=== PATIENT | female | born 1950 | race Caucasian/White ===

== ENCOUNTER → 2017-06-13 15:17 | Outpatient (CLI) | payer OTHER, SELFPAY ==
--- NOTE | 2017-06-13 15:19 | RAD_ITS ---
STUDY: X-RAY - LUMBAR SPINE REASON FOR EXAM: Female, 66 years old. Trauma, back pain TECHNIQUE: 3 view(s) of the lumbar spine were obtained. COMPARISON: 03/02/2016 FINDINGS: Normal lumbar lordosis. There is no substantial scoliosis. There is a normal alignment of the vertebrae. Normal vertebral bodies and endplates. There is multi-level degenerative disc disease with multi-level disc space narrowing. No fracture is seen. There is atherosclerotic calcification of the abdominal aorta without a demonstrated aneurysm. Cholecystectomy clips are seen in the right upper quadrant of the abdomen. RAD/Lumbar Spine 2 or 3 Views IMPRESSION: Mild degenerative changes. No acute bony abnormality. Electronically Signed: Robert Saba DO at 15:05 EST Tel , Service support ,
== END ==
PROVIDERS: Family Provider Nurse Practitioner; PCP Nurse Practitioner; Visit Provider Anesthesiology Pain Medicine
DX: M54.9 Dorsalgia, unspecified (principal); W19.XXXA Unspecified fall, initial encounter
CPT/HCPCS: 72100

== ENCOUNTER → 2017-06-15 06:35 | Outpatient (CLI) | payer OTHER, SELFPAY ==
[2017-05-31 14:20] VITALS: BP 124/72; BMI 32.2
--- NOTE | 2017-06-15 06:37 | ECHOD_ITS ---
Reason For Study: CHEST PAIN Procedure This was a 2D Doppler, Color Flow transthoracic echocardiogram. The exam was of fair technical quality due to diminished acoustic windows. The study was technically difficult. Exam performed in department. Left Ventricle Normal LV size. Left ventricular systolic function is normal. The estimated ejection fraction is 60 %. Transmitral doppler flow suggestive of impaired relaxation of left ventricle. No regional wall motion abnormalities noted. Right Ventricle Normal RV size. Normal systolic function. Atria Normal left atrium. Normal right atrium. No doppler evidence for ASD. Bubble contrast study negative for right to left interatrial shunt. Mitral Valve There is no mitral annular calcification. Normal mitral valve. Mild (1+) mitral valve insufficiency. Tricuspid Valve Normal tricuspid valve. Trivial tricuspid valve insufficiency. Unable to estimate RV systolic pressure/pulmonary artery pressure due to technically difficult study. Aortic Valve Trisinus/trileaflet aortic valve. Normal aortic valve. Pulmonic Valve The pulmonic valve is not well visualized. Great Vessels Normal sized aortic root. Pericardium/Pleural No pericardial effusion. MMode/2D Measurements & Calculations LVIDd: 3.9 cm IVSd: 0.96 cm Ao root diam: 2.9 cm LVIDs: 2.3 cm LVPWd: 1.1 cm RVDd: 2.6 cm FS: 40.1 % LAV(MOD-bp): 31.3 ml EDV(MOD-sp4): 41.5 ml EDV(MOD-sp2): 42.8 ml LAV(MOD-bp) Indexed: 17.3 ml/m2 ESV(MOD-sp4): 16.2 ml EF(MOD-sp2): 62.1 % LAV(MOD-sp2): 37.6 ml EF(MOD-sp4): 60.9 % LAV(MOD-sp4): 25.1 ml SV(MOD-sp4): 25.3 ml SV(MOD-sp2): 26.6 ml LA A4 area: 11.9 cm2 RA A4 area: 11.2 cm2 Doppler Measurements & Calculations MV E max diana: 60.2 cm/sec Ao V2 max: 97.0 cm/sec LV V1 max: 95.7 cm/sec MV A max diana: 67.7 cm/sec Ao max P.8 mmHg LV V1 max P.7 mmHg MV E/A: 0.89 PA V2 max: 112.5 cm/sec Interpretation Summary The study was technically difficult. Left ventricular systolic function is normal. The estimated ejection fraction is 60 %. Mild (1+) mitral valve insufficiency. Trivial tricuspid valve insufficiency. Unable to estimate RV systolic pressure/pulmonary artery pressure due to technically difficult study. Transmitral doppler flow suggestive of impaired relaxation of left ventricle Bubble contrast study negative for right to left interatrial shunt. Ordering Physician: Yaniv Liang Referring Physician: GUSTAVO SALGUERO Performed By: Bryn Sky
--- NOTE | 2017-06-15 10:14 | STRESSREP ---
Stress Test Report Date: 06/15/2017 Procedure: Pharmacologic stress nuclear imaging study Indications: Chest pain Consent: Per the patient Procedure: The patient underwent pharmacologic (Regadenoson) evaluation with a peak heart rate of 93 beats per minute (59% predicted maximal heart rate) and a peak blood pressure of 128/78 mmHg. The baseline ECG demonstrated normal sinus rhythm with nonspecific ST/T-wave abnormality. The peak pharmacologic ECG demonstrated with no obvious ECG changes. [There were no cardiac dysrhythmias pretest, during pharmacologic infusion, or recovery]. [There was no complaint of chest discomfort during pharmacologic infusion or recovery]. The examination was discontinued secondary to completion of protocol. Impression: 1. Pharmacologic (Regadenoson) evaluation 2. Peak pharmacologic ECG with continued nonspecific ST/T-wave abnormality with no obvious ECG changes. 3. Cardiac dysrhythmias pretest, during pharmacologic infusion, or recovery 4. Nuclear images pending Myocardial perfusion imaging study: Technique: The patient was injected with 1.4 millicuries of technetium 99m Cardiolite and subsequently rest SPECT Cardiolite nuclear imaging was obtained in the horizontal long, vertical long, and short axis views. The patient underwent pharmacologic (Regadenoson) evaluation with a peak heart rate of 93 beats per minute (59% predicted maximal heart rate) and a peak blood pressure of 128/78 mmHg. the patient was injected with 36 millicuries of technetium 99m Cardiolite and subsequently stress SPECT Cardiolite nuclear imaging was obtained in the horizontal long, vertical long, and short axis views. A gated Cardiolite study at peak stress was obtained. Interpretation: Rest and stress SPECT Cardiolite nuclear imaging status post realignment, normalization, and attenuation correction demonstrate relative uniform tracer uptake and myocardial perfusion appearing within normal limits. [There is end systolic thickening and brightening]. [The gated Cardiolite study demonstrates myocardial thickening and inward wall motion]. The reported LVEF is 92%. Impression: 1. Rest and stress SPECT currently nuclear imaging demonstrating relative uniform tracer uptake and myocardial perfusion appearing within normal limits. 2. The gated Cardiolite study demonstrates an LVEF of 92%. This note was generated with [employer] software. It may contain incorrect words, spelling, and punctuation that were not noted in checking the note before signing.
== END ==
PROVIDERS: Family Provider Nurse Practitioner; PCP Nurse Practitioner; Visit Provider Internal Medicine Cardiovascular Disease
DX: R07.9 Chest pain, unspecified (principal)
CPT/HCPCS: 78452; 93017; 93306; A9500; A4216; J2785

== ENCOUNTER → 2017-08-22 15:37 | Outpatient (CLI) | payer OTHER, SELFPAY ==
--- NOTE | 2017-08-22 15:40 | BI_ITS ---
MAMMOGRAPHY - BILATERAL SCREENING REASON FOR EXAM: Female, 66 years old. Routine annual screening examination. PERTINENT HISTORY: Aunt with breast cancer. History of prior bilateral breast implants with removal. TECHNIQUE: Digital bilateral breast shukri (3D mammographic acquisition) in the CC and MLO projections. 2-D mediolateral oblique (MLO) and craniocaudad (CC) views of both breasts were obtained. CAD: Full Field Digital Mammography with Computer Added Detection was performed. COMPARISON: Comparison is made with prior study dated July 23, 2015. FINDINGS: Breast Composition: There are scattered areas of fibroglandular density. There are no dominant masses or suspicious calcifications. Stable small benign appearing bilateral axillary lymph nodes. No other significant abnormalities are identified. There has been no significant change since the prior study. BI/SCREENING MAMM (CAD), BILAT IMPRESSION: Stable bilateral screening mammogram. Yearly follow-up mammogram recommended. (A) ASSESSMENT CATEGORY: BIRADS Category 2: Benign. A letter regarding these results will be sent to the patient by the facility within 30 days. Approximately 10% of breast cancers are not detected by mammography. A normal mammogram should not delay biopsy of a clinically suspicious abnormality. [id number] Electronically Signed: Xu Davila MD at 9:48 EDT Tel [phone], Service support ,
== END ==
PROVIDERS: Family Provider Nurse Practitioner; PCP Nurse Practitioner; Visit Provider Nurse Practitioner
DX: Z12.31 Encounter for screening mammogram for malignant neoplasm of breast (principal)
CPT/HCPCS: 77063; 77067

== ENCOUNTER → 2017-09-03 17:05 | Outpatient (CLI) | payer OTHER, SELFPAY ==
[2017-09-03 17:43] LABS: Amphetamine Urine VISTA NEGATIVE (<1000 ng/mL); Barbiturate Urine VISTA NEGATIVE (< 200 ng/mL); Benzodiazepine Urine VISTA NEGATIVE (< 200 ng/mL); Cocaine Urine VISTA NEGATIVE (< 300 ng/mL); Ecstacy Urine VISTA POSITIVE (< 500 ng/mL); Methadone Urine VISTA NEGATIVE (< 300 ng/mL); PCP Urine VISTA NEGATIVE (< 25 ng/mL); THC Urine VISTA POSITIVE (< 50 ng/mL); Vista UDS pH Range 5
== END ==
PROVIDERS: Family Provider Nurse Practitioner; PCP Nurse Practitioner; Visit Provider Anesthesiology Pain Medicine
DX: F11.20 Opioid dependence, uncomplicated (principal)
CPT/HCPCS: 80307

== ENCOUNTER 2018-03-01 12:49 | Observation (INO) | payer OTHER, SELFPAY ==
[2018-03-01] VITALS (13 sets, daily range): BP systolic 95–150; BP diastolic 49–70; PULSE 61–84; RESP 11–18; TEMP 36.6–36.8; O2SAT 92–97; BMI 32.5; BMI 33.0
--- NOTE | 2018-03-01 13:18 | CT_ITS ---
STUDY: CT BRAIN WITHOUT CONTRAST REASON FOR EXAM: Female, 67 years old. Worsening left-sided numbness and tingling for 2 weeks. Slurred speech and facial droop. RADIATION DOSAGE (If Supplied By Facility): CTDIvol = ( 60.81 ) mGy, DLP = ( 998.67 ) mGycm TECHNIQUE: Transaxial CT imaging of the brain was performed without administration of intravenous contrast material. Individualized dose optimization techniques were used for this CT. COMPARISON: Comparison is made with prior study dated June 09, 2014. FINDINGS: Normal soft tissue structures. Normal calvarium. There is mild cerebral atrophy with widening of the extra-axial spaces and ventricular dilatation. Normal white matter tracts of the cerebral hemispheres. Normal basal ganglia and thalami. Normal brainstem. Normal cerebellum. There is no intracranial hemorrhage. There are no findings of an acute ischemic infarction. Normal visualized paranasal sinuses. CT/Brain/Head without Contrast IMPRESSION: Chronic involutional changes of the brain. Electronically Signed: Xu Davila MD at 14:04 EST Tel [phone], Service support ,
--- NOTE | 2018-03-01 13:18 | EKG12_ITS ---
Test Reason : NUMBNESS Blood Pressure : / mmHG Vent. Rate : 079 BPM Atrial Rate : 079 BPM P-R Int : 148 ms QRS Dur : 086 ms QT Int : 402 ms P-R-T Axes : 046 022 002 degrees QTc Int : 460 ms Normal sinus rhythm Normal ECG Confirmed by AME MCMANUS ([id number]), acquisition editor LAI MCKEON ([id number] on 03/04/2018 2:09:13 PM Referred By: BETTE
[2018-03-01 13:29] LABS: Prothrombin Time (Protime)PT. 12.8 SECONDS (11.7-14.9)
[2018-03-01 13:30] LABS: Partial Thromboplast Time 26.9 Seconds (24.1-36.2)
[2018-03-01 13:31] LABS: Absolute Neutrophil Count 5.4 X10^3/uL (2.0-7.7); Basophil# 0.04 X10^3/uL; Basophil% 0.4 % (0-1); Eosinophil# 0.18 X10^3/uL; Hematocrit 46.1 % (37-47); Hemoglobin 15.5 g/dl (12.0-15.0); Lymphocyte % 31.7 % (19-41); Mean Corp Hgb Conc 33.6 g/gl (32-36); Mean Corpuscular Hgb 31.9 pg (27.0-32.0); Mean Corpuscular Volume 94.9 fL (81-99); Mean Platelet Vol. 9.8 fl (6.2-12.0); Monocyte# 0.65 X10^3/uL; Monocyte% 7.1 % (0-10); Neutrophil # 5.35 X10^3/uL (2.7-7.7); Neutrophil % 58.6 % (47-70); POSITIVE COUNT NO; POSITIVE DIFFERENTIAL NO; POSITIVE MORPHOLOGY NO; Platelet Count 232 K/mm3 (150-450); RBC Distribution Width CV 12.7 % (11.6-14.6); Red Blood Count 4.86 M/mm3 (4.2-5.4); White Blood Count 9.1 K/mm3 (4.4-11.0)
[2018-03-01 13:38] LABS: Anion Gap 6 (5-15); BUN 14 mg/dL (7-18); BUN/Creat Ratio 18.5 RATIO (10-20); Calcium,Total 8.7 mg/dL (8.5-10.1); Chloride 105 mmol/L (98-107); Creatinine, Serum 0.76 mg/dL (0.55-1.02); EST Glomerular Filtration Rate 81 mL/min (>60); Est Glom Filt Rate - Afr Amer 98 mL/min (>60); Estimated Creatinine Clearance 58.37 ml/min; Glucose 84 mg/dL (74-106); Sodium Level 138 mmol/L (136-145)
[2018-03-01 14:24] LABS: Thyroid Stim Hormone (TSH) 0.02 uIU/mL (0.358-3.74)
--- NOTE | 2018-03-01 14:33 | ED.RN ---
PAGED HOSPITALIST. DR. SIMS WILL CALL BACK SHORTLY.
--- NOTE | 2018-03-01 14:35 | ED.DCSUM_ITS ---
- ER Visit Summary Date of Service: 03/01/18 Chief Complaint: Increased weakness and numbness left side History of Present Illness: The patient is a 67 F who has multiple medical problems which include GERD, type 2 diabetes, hypertension, fiber myalgia, hiatal hernia and hypothyroidism was sent from primary care provider's office for evaluation of numbness left side and weakness left side. Onset approximately 2 weeks ago. Worse apparently today. She has had problems with speech. She does report headache. She does admit to depression and is on antidepressants. She complains of binocular blurred vision. She denies fever, chills night sweats. She denies ear pain, ringing or ears decreased hearing. She denies rhinorrhea, congestion postnasal drainage or sore throat. She denies cardiac or respiratory symptoms. She denies abdominal pain, nausea, vomiting diarrhea. She denies urologic symptoms. She denies myalgias arthralgias or back pain. She denies polyuria, polydipsia or polyphagia. Physical Examination: Vital signs are noted and remarkable for an elevated blood pressure 150/70. Patient is not alert and has a depressed affect. Her speech is slightly slurred. Pupils equal round reactive. Extra muscles are intact. There is no nystagmus. TMs normal. Nares patent. Posterior pharynx without erythema or exudate and uvula is midline. There is no deviation tongue or protrusion. Trach is midline. There is no carotid bruit. Heart is regular without murmur, gallop or rub. S1 and S2 are normal. Lungs are clear to auscultation with good movement of air bilaterally. Abdomen is soft nontender. She has weakness on the left side and altered sensation left side with slurring of her words. She answered Brenda for the month. NIH is 10. Test Results: CT reveals chronic involutional changes. EKG sinus rhythm rate of 79 and completely normal. CBC normal. Basic metabolic panel normal. INR PTT normal. Troponin less than 0.015. TSH is low at 0.02.. Emergency Department Course and Treatment: Patient with neurologic symptoms over the past 2 weeks. This may represent MS, atypical stroke, conversion reaction, depression or spinal cord lesion. Stroke workup was undertaken. Since she has history of hypothyroidism will obtain TSH in the event this is hypothyroidism, atypical presentation. Treatment Plan: PCU observation status further testing and delineate the cause of her symptoms. Disposition: PCU Impression: 1. Paresthesia and weakness left side uncertain etiology 2. History of type 2 diabetes 3. History of hypertension 4. History of hypothyroidism with low TSH 5. History of GERD 6. History of fibromyalgia 7. History of depression This note was generated with [employer] software. It may contain incorrect words, spelling, and punctuation that were not noted in review of the chart prior to signing ED Disposition - Plan for ED Patient: Chief Complaint: Numb/Ting Referrals: Anjelica Moore NP-C [Primary Care Provider] -
--- NOTE | 2018-03-01 15:20 | PCM.HP.STD ---
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: without marine oil terminal superintendent use Diabetes mellitus complication status: with unspecified complications Qualified Code(s): E11.8 - Type 2 diabetes mellitus with unspecified complications (4) Psoriatic arthritis Status: Chronic (5) GERD (gastroesophageal reflux disease) Status: Chronic Qualifiers: Esophagitis presence: esophagitis presence not specified Qualified Code(s): K21.9 - Gastro-esophageal reflux disease without esophagitis (6) Fibromyalgia Status: Chronic (7) Mitral valve prolapse Status: Chronic (8) Hypertension Status: Chronic Qualifiers: Hypertension type: essential hypertension Qualified Code(s): I10 - Essential (primary) hypertension History of Present Illness Date of Admission: 03/01/18 Chief Complaint: Migraine, L sided paresthesias The patient is a 67 y/o F w/ PMHx: HTN, Obesity, Psoriatic Arthritis, Hypothyroidism w/ recent hyperthyroidism secondary to overtreatment w/ decreasing regimen ~ 3 weeks prior, Chronic Pain Syndrome following w/ Dr. Alvarez, Chronic Migraines w/ prior severe complex migraines w/ ongoing botox injections and aimovig monthly injections, Anxiety and Depression, GERD who presents to the [facility] ED on 03/01/18 with history of onset L sided paresthesias and weakness at the PCP office w/ referral to the ED for evaluation. In the ED she additionally notes onset L sided top of her head/parietal region throbbing headache w/ light sensitivity but no sound sensitivity. She has had a history of complex migraines. In the ED work-up included T 98.1, heart rate 84, BP 150/70, respiratory rate 16, 95% on room air, unremarkable CBC, unremarkable coags, BMP unremarkable, trop <0.015, TSH 0.02, CT head w/ chronic involutional changes of the brain. In the ED patient administered morphine and zofran. Past Medical History Past Medical History (Chronic Problems): Chronic Problems (Last Reviewed 05/31/17 @ 14:32 by Henrietta Corbett) Migraines (Chronic) Hypothyroidism (Chronic) Diabetes mellitus, type II (Chronic) Psoriatic arthritis (Chronic) GERD (gastroesophageal reflux disease) (Chronic) Fibromyalgia (Chronic) Mitral valve prolapse (Chronic) Hypertension (Chronic) Medical History: Medical History (Last Reviewed 05/31/17 @ 14:32 by Henrietta Corbett) Palpitations (Acute) R00.2 SOB (shortness of breath) (Acute) R06.02 Mitral valve prolapse (Chronic) I34.1 Hypertension (Chronic) I10 Fatigue (Acute) R53.83 Chest pain (Acute) R07.9 Chronic pain G89.29 Fibromyalgia M79.7 GERD (gastroesophageal reflux disease) K21.9 Hiatal hernia K44.9 Hypothyroidism E03.9 Osteopenia M85.80 Osteoporosis M81.0 Psoriatic arthritis L40.50 Type 2 diabetes mellitus E11.9 Chronic pain (Inactive) G89.29 Head ache (Inactive) R51 Hypothyroidism (Inactive) E03.9 Psoriatic arthritis (Inactive) L40.50 Allergies amoxicillin trihydrate [From Augmentin] Allergy (Verified 03/01/18 12:55) Shortness of breath ITCHING, SWELLING, HIVES aspirin Allergy (Verified 03/01/18 12:55) Anaphylaxis atropine sulfate [From Lomotil] Allergy (Verified 03/01/18 12:55) Itching SHORTNESS OF BREATH, HIVES cefixime [From Suprax] Allergy (Verified 03/01/18 12:55) Itching SHORTNESS OF BREATH, HIVES ceftriaxone sodium [From Rocephin] Allergy (Verified 03/01/18 12:55) Itching SHORTNESS OF BREATH, HIVES cephalexin monohydrate [From Keflex] Allergy (Verified 03/01/18 12:55) Itching SHORTNESS OF BREATH, HIVES ciprofloxacin [From Cipro] Allergy (Verified 03/01/18 12:55) Shortness of breath ciprofloxacin HCl [From Cipro] Allergy (Verified 03/01/18 12:55) Shortness of breath clindamycin Allergy (Verified 03/01/18 12:55) Itching HIVES, SHORTNESS OF BREATH diphenoxylate HCl [From Lomotil] Allergy (Verified 03/01/18 12:55) Itching SHORTNESS OF BREATH, HIVES gentamicin [Gentamicin] Allergy (Verified 03/01/18 12:55) Itching SHORTNESS OF BREATH, HIVES hydromorphone HCl [From Exalgo ER] Allergy (Verified 03/01/18 12:55) Itching SHORTNESS OF BREATH, HIVES metoclopramide HCl [From Reglan] Allergy (Verified 03/01/18 12:55) Anaphylaxis Penicillins [PCN] Allergy (Verified 03/01/18 12:55) Itching SHORTNESS OF BREATH, HIVES phenazopyridine HCl [From Pyridium] Allergy (Verified 03/01/18 12:55) Itching SHORTNESS OF BREATH, HIVES potassium clavulanate [From Augmentin] Allergy (Verified 03/01/18 12:55) Shortness of breath ITCHING, SWELLING, HIVES povidone-iodine [From Betadine] Allergy (Verified 03/01/18 12:55) Itching IF INJESTED propoxyphene HCl [From Darvon] Allergy (Verified 03/01/18 12:55) Itching SHORTNESS OF BREATH, HIVES red dye Allergy (Verified 03/01/18 12:55) Itching SHORTNESS OF BREATH, HIVES soap [From Betadine] Allergy (Verified 03/01/18 12:55) Itching IF INJESTED Sulfa (Sulfonamide Antibiotics) Allergy (Verified 03/01/18 12:55) Itching SHORTNESS OF BREATH, HIVES adhesive tape Adverse Reaction (Severe, Verified 03/01/18 12:55) skin peels clarithromycin [From Biaxin] Adverse Reaction (Severe, Verified 03/01/18 12:55) Vomiting ketorolac tromethamine [From Toradol] Adverse Reaction (Severe, Verified 03/01/18 12:55) Vomiting itching verapamil [Verapamil] Adverse Reaction (Severe, Verified 03/01/18 12:55) Other 3RD DEGREE HEART BLOCK azithromycin Adverse Reaction (Intermediate, Verified 03/01/18 12:55) vomiting iodine Adverse Reaction (Unknown, Verified 03/01/18 12:55) Unknown levofloxacin [From Levaquin] Adverse Reaction (Unknown, Verified 03/01/18 12:55) Unknown phenazopyridine [From Pyridium] Adverse Reaction (Unknown, Verified 03/01/18 12:55) Unknown carbamazepine [From Tegretol] Adverse Reaction (Verified 03/01/18 12:55) Unknown duloxetine HCl [From Cymbalta] Adverse Reaction (Verified 03/01/18 12:55) Unknown gabapentin [From Neurontin] Adverse Reaction (Verified 03/01/18 12:55) Other stomach pain, peripheral edema guaifenesin [From Entex T] Adverse Reaction (Verified 03/01/18 12:55) Vomiting TACHYCARDIA midazolam HCl [From Versed] Adverse Reaction (Verified 03/01/18 12:55) Other NO AFFECT-OKAY WITH DIPROVAN morphine Adverse Reaction (Verified 03/01/18 12:55) Other INSOMNIA, HALLUCINATIONS phenobarbital Adverse Reaction (Verified 03/01/18 12:55) Other PERODOXICAL REACTION pseudoephedrine HCl [From Entex T] Adverse Reaction (Verified 03/01/18 12:55) Vomiting TACHYCARDIA quetiapine fumarate [From Seroquel] Adverse Reaction (Verified 03/01/18 12:55) Other dystonia C-CLOR Allergy (Uncoded 10/30/13 23:22) Shortness of breath CAT SCAN DYE Allergy (Uncoded 10/30/13 23:22) Anaphylaxis CIPRO Allergy (Uncoded 10/30/13 23:22) Itching SHORTNESS OF BREATH, HIVES STERIODS Allergy (Uncoded 10/30/13 23:22) Other TRIGGERED ADDISONS DISEASE TAPE Adverse Reaction (Uncoded 10/30/13 23:22) Other SKIN PEELS XOPONEX Adverse Reaction (Uncoded 10/30/13 23:22) Other DISTONIA Home Medications: Ambulatory Orders Medication Instructions Recorded cholecalciferol (vitamin D3) 2,000 2,000 unit PO QDAY cap 05/30/17 unit capsule cyclobenzaprine 10 mg tablet 10 mg PO HS tab 05/30/17 trazodone 300 mg tablet 300 mg PO QHS tab 05/30/17 Clonazepam 2 mg PO QHS 03/01/18 Epinephrine [Epi Pen] 0.3 mg IM PRN PRN 03/01/18 Erenumab-Aooe [Aimovig 70 mg SQ QMONTH 03/01/18 Autoinjector (2 Pack)] Fluticasone 0.05% [Flonase Nasal 2 spray NASAL DAILY 03/01/18 [place]] Lactobacillus Rhamnosus GG 1 cap PO 03/01/18 [Culturelle] Metoprolol Succinate [Toprol Xl] 50 mg PO DAILY 03/01/18 Morphine Sulfate 15 mg PO DAILY 03/01/18 Tirosint 100 mcg PO CHARITY 03/01/18 Tirosint 200 mcg PO WE 03/01/18 Vitamin B Complex 1 tab PO DAILY 03/01/18 Surgical History: Surgical History (Last Reviewed 05/31/17 @ 14:32 by Henrietta Corbett) History of cholecystectomy Z98.890, Z90.49 History of total hysterectomy Z98.890, Z90.710 Hx of appendectomy Z98.890, Z90.49 Surgical History: appendectomy, cholecystectomy, hysterectomy Psychiatric History: Anxiety, Depression [employer]FT [employer] History: No pertinent [employer] history Lives: Spouse/ Significant Other Smoking Status: Never smoker Tobacco Use: Non-smoker Alcohol: None Drugs: None - *Family History Maternal Family History: Family History (Last Reviewed 05/31/17 @ 14:32 by Henrietta Corbett) Father CAD (coronary artery disease) Mother CVA (cerebral vascular accident) Grandfather Heart disease Grandmother Heart disease Uncle Sudden cardiac , Onset Age: 30 History Items: Stroke Paternal Family History: Family History (Last Reviewed 05/31/17 @ 14:32 by Henrietta Corbett) Father CAD (coronary artery disease) Mother CVA (cerebral vascular accident) Grandfather Heart disease Grandmother Heart disease Uncle Sudden cardiac , Onset Age: 30 History Items: High Cholesterol, Heart Disease, Hypertension Review of Systems Constitutional: Reports: Malaise, Weakness, Fatigue. Denies: Chills, Fever, Weight Change HEENT: Reports: Head Aches. Denies: Sinus Congestion, Sinus Drainage Cardiovascular: Denies: Chest Pain, Palpitations Respiratory: Denies: Cough, Shortness of breath at rest, Sputum production Gastrointestinal: Denies: Abdominal Pain, Nausea, Vomiting Genitourinary: Denies: Dysuria Musculoskeletal: Reports: Joint Pain. Denies: Joint Tenderness Skin: Denies: Rash, Wounds Neurological: Reports: Focal weakness, Numbness, Tingling Psychiatric: Reports: Anxiety, Depression. Denies: Homicidal Ideations, Suicidal Ideations Hematologic/ Lymphatic: Denies: Easy Bruising, Easy Bleeding VTE Information - Inpt Only VTE Present on Admission: No VTE Mechan Device Prophylaxis: SCD's VTE Pharm Prophylaxis ordered?: Yes Patient Problems: Active and Suspected Problems (Last Reviewed 05/31/17 @ 14:32 by Henrietta Corbett) Left-sided weakness (Acute) - Physical Exam Vital Signs Temp Pulse Resp BP Pulse Ox 98.1 F 80 16 132/60 H 95 03/01/18 12:50 03/01/18 15:15 03/01/18 15:15 03/01/18 15:15 03/01/18 15:15 Oxygen Flow Rate (L/min) 2 Oxygen Delivery Method Room Air Weight: 178 lb Body Mass Index (BMI) 32.5 Finger Stick Blood Glucose 95 Laboratory Tests Past 24 Hrs 03/01/18 03/01/18 03/01/18 12:58 12:58 12:58 WBC 9.1 RBC 4.86 Hgb 15.5 H Hct 46.1 MCV 94.9 MCH 31.9 MCHC 33.6 RDW 12.7 RDW Differential 43.0 Plt Count 232 MPV 9.8 Immature Gran % (Auto) 0.200 Neut % (Auto) 58.6 Lymph % (Auto) 31.7 [place] % (Auto) 7.1 Eos % (Auto) 2.0 Baso % (Auto) 0.4 Absolute Neuts (auto) 5.4 Absolute Lymphs (auto) 2.90 Total Counted Not Reportable PT 12.8 INR 1.0 APTT 26.9 Sodium 138 Potassium 4.0 Chloride 105 Carbon Dioxide 27.0 Anion Gap 6 BUN 14 Creatinine 0.76 Estim Creat Clear Calc 58.37 Est GFR (MDRD) Af Amer 98 Est GFR (MDRD) Non-Af 81 BUN/Creatinine Ratio 18.5 Glucose 84 Calcium 8.7 Troponin I < 0.015 TSH 03/01/18 12:58 WBC RBC Hgb Hct MCV MCH MCHC RDW RDW Differential Plt Count MPV Immature Gran % (Auto) Neut % (Auto) Lymph % (Auto) [place] % (Auto) Eos % (Auto) Baso % (Auto) Absolute Neuts (auto) Absolute Lymphs (auto) Total Counted PT INR APTT Sodium Potassium Chloride Carbon Dioxide Anion Gap BUN Creatinine Estim Creat Clear Calc Est GFR (MDRD) Af Amer Est GFR (MDRD) Non-Af BUN/Creatinine Ratio Glucose Calcium Troponin I TSH 0.02 L Assessment/Plan All Active Problems (Last Reviewed 05/31/17 @ 14:32 by Henrietta Corbett) Left-sided weakness (Acute) Palpitations (Acute) SOB (shortness of breath) (Acute) Fatigue (Acute) Chest pain (Acute) The patient is a 67 y/o F w/ PMHx: HTN, Obesity, Psoriatic Arthritis, Hypothyroidism w/ recent hyperthyroidism secondary to overtreatment w/ decreasing regimen ~ 3 weeks prior, Chronic Pain Syndrome following w/ Dr. Alvarez, Chronic Migraines w/ prior severe complex migraines w/ ongoing botox injections and aimovig monthly injections, Anxiety and Depression, GERD who presents to the [facility] ED on 03/01/18 with history of onset L sided paresthesias and weakness at the PCP office w/ referral to the ED for evaluation. (1) L sided Paresthesias concerning for Possibly Complex Migraine versus Conversion Disorder versus TIA/CVA: In the ED work-up included T 98.1, heart rate 84, BP 150/70, respiratory rate 16, 95% on room air, unremarkable CBC, unremarkable coags, BMP unremarkable, trop <0.015, TSH 0.02, CT head w/ chronic involutional changes of the brain. Will admit to PCU, will obtain MRI Brain, MRA Head and Neck, defer ECHO as recently performed, PT/OT/Speech/Nutrition evaluation per protocol. Neurology consulted, concern for conversion, recommend imaging. Will continue home HTN regimen, asa severe allergy, will defer plavix trial, defer statin until AM FLP, fall precautions. Mag, TSH as noted low with pending FT4 and planned decrease home synthroid regimen. Discussed with Neurology and will have PRN toradol only w/ PRN nausea regimen as patient notes intolerance with nausea, emesis. Defer any further increased narcotic regimen. UDS requested. (2) Chronic Migraines: Patient w/ prior severe complex migraines w/ ongoing botox injections and aimovig monthly injections. (3) Hypothyroidism with recent low TSH (Hyperthyroid, Iatrogenic): Patient states approximately 3 weeks prior she had undetectable TSH with recently decreased Synthroid regimen, TSH repeat low will obtain free T4 and likely continue decrease Synthroid regimen. (4) Chronic Pain Syndrome with psoriatic arthritis: Following w/ Dr. Alvarez, continue morphine sulfate, clonazepam and cyclobenzaprine home regimen regimen, urine drug screen requested, mildly lethargic in the ED, PT, OT, CM as noted for discharge planning. (5) Hypertension: Continue home regimen including metoprolol, PRN hydralazine. (6) Hyperlipidemia: FLP in a.m., no longer on statin therapy but was on prior and has no history of reaction per her report. (7) Allergic rhinitis: Continue home fluticasone regimen. (8) Obesity: Weight loss and lifestyle changes encouraged. (9) DVT Prophylaxis: SCDs, lovenox. Code Visit OBSV E&M: [id number] Initial observation care L3
[2018-03-01] MEDS: Ondansetron 4 MG/2 ML Vial IV ×2 (15:33→20:23)
[2018-03-01] MEDS: Morphine 4 MG/ML Syringe IV (15:36)
--- NOTE | 2018-03-01 15:56 | PCM.CONS.GEN ---
Problem List (1) Left-sided weakness Status: Acute (2) Migraines Status: Chronic Qualifiers: Migraine type: unspecified Status migrainosus presence: without status migrainosus Intractability: not intractable Qualified Code(s): G43.909 - Migraine, unspecified, not intractable, without status migrainosus Reason for Consult Date of Consultation: 03/01/18 Reason for Consultation: Left sided weakness History of Present Illness: The patient is a 67 year old CF with PMH HTN, HLD, DM, hypothroidism, depression, Migraine on Botox and Aimovig injections, H/O neck surgery, H/O seizure with last seizure many years ago admitted with left sided weakness. Per patient she has been having some left sided weakness for the past few days to weeks, along with left sided numbness, but has been worse since this morning and sent from her doctor's office for furhter evaluation. Per patient her HAs has been controlled with Aimovig and Botox injections. At present she denies any FARIAS, have had FARIAS about this morning which was on top of the left side of the head, but denies any photophobia, phonophobia. Denies any dizziness, complaints of neck pain, denies any radicular symptoms, denies any low back pain. [] Past Medical History Past Medical History (Chronic Problems): Chronic Problems (Last Reviewed 05/31/17 @ 14:32 by Henrietta Corbett) Migraines (Chronic) Hypothyroidism (Chronic) Diabetes mellitus, type II (Chronic) Psoriatic arthritis (Chronic) GERD (gastroesophageal reflux disease) (Chronic) Fibromyalgia (Chronic) Mitral valve prolapse (Chronic) Hypertension (Chronic) Medical History: Medical History (Last Reviewed 05/31/17 @ 14:32 by Henrietta Corbett) Palpitations (Acute) R00.2 SOB (shortness of breath) (Acute) R06.02 Mitral valve prolapse (Chronic) I34.1 Hypertension (Chronic) I10 Fatigue (Acute) R53.83 Chest pain (Acute) R07.9 Chronic pain G89.29 Fibromyalgia M79.7 GERD (gastroesophageal reflux disease) K21.9 Hiatal hernia K44.9 Hypothyroidism E03.9 Osteopenia M85.80 Osteoporosis M81.0 Psoriatic arthritis L40.50 Type 2 diabetes mellitus E11.9 Chronic pain (Inactive) G89.29 Head ache (Inactive) R51 Hypothyroidism (Inactive) E03.9 Psoriatic arthritis (Inactive) L40.50 Allergies amoxicillin trihydrate [From Augmentin] Allergy (Verified 03/01/18 12:55) Shortness of breath ITCHING, SWELLING, HIVES aspirin Allergy (Verified 03/01/18 12:55) Anaphylaxis atropine sulfate [From Lomotil] Allergy (Verified 03/01/18 12:55) Itching SHORTNESS OF BREATH, HIVES cefixime [From Suprax] Allergy (Verified 03/01/18 12:55) Itching SHORTNESS OF BREATH, HIVES ceftriaxone sodium [From Rocephin] Allergy (Verified 03/01/18 12:55) Itching SHORTNESS OF BREATH, HIVES cephalexin monohydrate [From Keflex] Allergy (Verified 03/01/18 12:55) Itching SHORTNESS OF BREATH, HIVES ciprofloxacin [From Cipro] Allergy (Verified 03/01/18 12:55) Shortness of breath ciprofloxacin HCl [From Cipro] Allergy (Verified 03/01/18 12:55) Shortness of breath clindamycin Allergy (Verified 03/01/18 12:55) Itching HIVES, SHORTNESS OF BREATH diphenoxylate HCl [From Lomotil] Allergy (Verified 03/01/18 12:55) Itching SHORTNESS OF BREATH, HIVES gentamicin [Gentamicin] Allergy (Verified 03/01/18 12:55) Itching SHORTNESS OF BREATH, HIVES hydromorphone HCl [From Exalgo ER] Allergy (Verified 03/01/18 12:55) Itching SHORTNESS OF BREATH, HIVES metoclopramide HCl [From Reglan] Allergy (Verified 03/01/18 12:55) Anaphylaxis Penicillins [PCN] Allergy (Verified 03/01/18 12:55) Itching SHORTNESS OF BREATH, HIVES phenazopyridine HCl [From Pyridium] Allergy (Verified 03/01/18 12:55) Itching SHORTNESS OF BREATH, HIVES potassium clavulanate [From Augmentin] Allergy (Verified 03/01/18 12:55) Shortness of breath ITCHING, SWELLING, HIVES povidone-iodine [From Betadine] Allergy (Verified 03/01/18 12:55) Itching IF INJESTED propoxyphene HCl [From Darvon] Allergy (Verified 03/01/18 12:55) Itching SHORTNESS OF BREATH, HIVES red dye Allergy (Verified 03/01/18 12:55) Itching SHORTNESS OF BREATH, HIVES soap [From Betadine] Allergy (Verified 03/01/18 12:55) Itching IF INJESTED Sulfa (Sulfonamide Antibiotics) Allergy (Verified 03/01/18 12:55) Itching SHORTNESS OF BREATH, HIVES adhesive tape Adverse Reaction (Severe, Verified 03/01/18 12:55) skin peels clarithromycin [From Biaxin] Adverse Reaction (Severe, Verified 03/01/18 12:55) Vomiting ketorolac tromethamine [From Toradol] Adverse Reaction (Severe, Verified 03/01/18 12:55) Vomiting itching verapamil [Verapamil] Adverse Reaction (Severe, Verified 03/01/18 12:55) Other 3RD DEGREE HEART BLOCK azithromycin Adverse Reaction (Intermediate, Verified 03/01/18 12:55) vomiting iodine Adverse Reaction (Unknown, Verified 03/01/18 12:55) Unknown levofloxacin [From Levaquin] Adverse Reaction (Unknown, Verified 03/01/18 12:55) Unknown phenazopyridine [From Pyridium] Adverse Reaction (Unknown, Verified 03/01/18 12:55) Unknown carbamazepine [From Tegretol] Adverse Reaction (Verified 03/01/18 12:55) Unknown duloxetine HCl [From Cymbalta] Adverse Reaction (Verified 03/01/18 12:55) Unknown gabapentin [From Neurontin] Adverse Reaction (Verified 03/01/18 12:55) Other stomach pain, peripheral edema guaifenesin [From Entex T] Adverse Reaction (Verified 03/01/18 12:55) Vomiting TACHYCARDIA midazolam HCl [From Versed] Adverse Reaction (Verified 03/01/18 12:55) Other NO AFFECT-OKAY WITH DIPROVAN morphine Adverse Reaction (Verified 03/01/18 12:55) Other INSOMNIA, HALLUCINATIONS phenobarbital Adverse Reaction (Verified 03/01/18 12:55) Other PERODOXICAL REACTION pseudoephedrine HCl [From Entex T] Adverse Reaction (Verified 03/01/18 12:55) Vomiting TACHYCARDIA quetiapine fumarate [From Seroquel] Adverse Reaction (Verified 03/01/18 12:55) Other dystonia C-CLOR Allergy (Uncoded 10/30/13 23:22) Shortness of breath CAT SCAN DYE Allergy (Uncoded 10/30/13 23:22) Anaphylaxis CIPRO Allergy (Uncoded 10/30/13 23:22) Itching SHORTNESS OF BREATH, HIVES STERIODS Allergy (Uncoded 10/30/13 23:22) Other TRIGGERED ADDISONS DISEASE TAPE Adverse Reaction (Uncoded 10/30/13 23:22) Other SKIN PEELS XOPONEX Adverse Reaction (Uncoded 10/30/13 23:22) Other DISTONIA Home Medications: Ambulatory Orders Medication Instructions Recorded cholecalciferol (vitamin D3) 2,000 2,000 unit PO QDAY cap 05/30/17 unit capsule cyclobenzaprine 10 mg tablet 10 mg PO HS tab 05/30/17 trazodone 300 mg tablet 300 mg PO QHS tab 05/30/17 Clonazepam 2 mg PO QHS 03/01/18 Epinephrine [Epi Pen] 0.3 mg IM PRN PRN 03/01/18 Erenumab-Aooe [Aimovig 70 mg SQ QMONTH 03/01/18 Autoinjector (2 Pack)] Fluticasone 0.05% [Flonase Nasal 2 spray NASAL DAILY 03/01/18 [place]] Lactobacillus Rhamnosus GG 1 cap PO 03/01/18 [Culturelle] Metoprolol Succinate [Toprol Xl] 50 mg PO DAILY 03/01/18 Morphine Sulfate 15 mg PO DAILY 03/01/18 Tirosint 100 mcg PO SUMOTUTHFRSA 03/01/18 Tirosint 200 mcg PO WE 03/01/18 Vitamin B Complex 1 tab PO DAILY 03/01/18 Surgical History: Surgical History (Last Reviewed 05/31/17 @ 14:32 by Henrietta Corbett) History of cholecystectomy Z98.890, Z90.49 History of total hysterectomy Z98.890, Z90.710 Hx of appendectomy Z98.890, Z90.49 Surgical History: appendectomy, cholecystectomy, hysterectomy Psychiatric History: Anxiety, Depression [employer] History: No pertinent [employer] history Lives: Alone Smoking Status: Never smoker Tobacco Use: Non-smoker Alcohol: None Drugs: None - *Family History Paternal Family History: Family History (Last Reviewed 05/31/17 @ 14:32 by Henrietta Corbett) Father CAD (coronary artery disease) Mother CVA (cerebral vascular accident) Grandfather Heart disease Grandmother Heart disease Uncle Sudden cardiac , Onset Age: 30 History Items: High Cholesterol, Heart Disease, Hypertension Maternal Family History: Family History (Last Reviewed 05/31/17 @ 14:32 by Henrietta Corbett) Father CAD (coronary artery disease) Mother CVA (cerebral vascular accident) Grandfather Heart disease Grandmother Heart disease Uncle Sudden cardiac , Onset Age: 30 History Items: Stroke Review of Systems Constitutional: Reports: - - complete ROS negative except as documented in HPI Patient Problems: Active and Suspected Problems (Last Reviewed 05/31/17 @ 14:32 by Henrietta Corbett) Left-sided weakness (Acute) - Physical Exam General: Alert HEENT: Normocephalic Neck: Supple Lungs: Normal air movement Cardiovascular: Normal S1, Normal S2 Abdomen: Bowel Sounds Present Extremities: No cyanosis Neurological: - - consious, alert, AoA x3, CN 2-12 grossly intact except ? fluctuating left facial droop, left facial sensory loss, power 5/5 right UE/LE, effor dependent 4/5 Left UE/LE, no pronator drift, hoovers sign +ve, subjective sensory loss left side, Reflexes + B/L B/S/T/K/A, no NR, gait deferred. Vital Signs Temp Pulse Resp BP Pulse Ox 98.1 F 80 12 127/57 H 94 03/01/18 12:50 03/01/18 15:37 03/01/18 15:37 03/01/18 15:37 03/01/18 15:37 Oxygen Flow Rate (L/min) 2 Oxygen Delivery Method Room Air Weight: 80.739 kg Body Mass Index (BMI) 32.5 Finger Stick Blood Glucose 95 Laboratory Tests Past 24 Hrs 03/01/18 03/01/18 03/01/18 12:58 12:58 12:58 WBC 9.1 RBC 4.86 Hgb 15.5 H Hct 46.1 MCV 94.9 MCH 31.9 MCHC 33.6 RDW 12.7 RDW Differential 43.0 Plt Count 232 MPV 9.8 Immature Gran % (Auto) 0.200 Neut % (Auto) 58.6 Lymph % (Auto) 31.7 [place] % (Auto) 7.1 Eos % (Auto) 2.0 Baso % (Auto) 0.4 Absolute Neuts (auto) 5.4 Absolute Lymphs (auto) 2.90 Total Counted Not Reportable PT 12.8 INR 1.0 APTT 26.9 Sodium 138 Potassium 4.0 Chloride 105 Carbon Dioxide 27.0 Anion Gap 6 BUN 14 Creatinine 0.76 Estim Creat Clear Calc 58.37 Est GFR (MDRD) Af Amer 98 Est GFR (MDRD) Non-Af 81 BUN/Creatinine Ratio 18.5 Glucose 84 Calcium 8.7 Troponin I < 0.015 TSH Free T4 03/01/18 03/01/18 12:58 12:58 WBC RBC Hgb Hct MCV MCH MCHC RDW RDW Differential Plt Count MPV Immature Gran % (Auto) Neut % (Auto) Lymph % (Auto) [place] % (Auto) Eos % (Auto) Baso % (Auto) Absolute Neuts (auto) Absolute Lymphs (auto) Total Counted PT INR APTT Sodium Potassium Chloride Carbon Dioxide Anion Gap BUN Creatinine Estim Creat Clear Calc Est GFR (MDRD) Af Amer Est GFR (MDRD) Non-Af BUN/Creatinine Ratio Glucose Calcium Troponin I TSH 0.02 L Free T4 Pending Assessment/Plan All Active Problems (Last Reviewed 05/31/17 @ 14:32 by Henrietta Corbett) Left-sided weakness (Acute) Palpitations (Acute) SOB (shortness of breath) (Acute) Fatigue (Acute) Chest pain (Acute) The patient is a 67 year old CF with PMH HTN, HLD, DM, hypothroidism, depression, Migraine on Botox and Aimovig injections, H/O neck surgery, H/O seizure with last seizure many years ago admitted with left sided weakness. Per patient she has been having some left sided weakness for the past few days to weeks, along with left sided numbness, but has been worse since this morning and sent from her doctor's office for furhter evaluation. Per patient her HAs has been controlled with Aimovig and Botox injections. At present she denies any FARIAS, have had FARIAS about this morning which was on top of the left side of the head, but denies any photophobia, phonophobia. Denies any dizziness, complaints of neck pain, denies any radicular symptoms, denies any low back pain. Plan Left sided weakness/numbness R/O Stroke vs Complicated migraine vs conversion d/o Plan -Check MRI brain/ MRA head/neck -Check MRI C spine -Is allergic to ASA per documentation -Will hold off on any acute migraine medication injectable management at present since patient denies any FARIAS. -Check ESR -GI/DVT prophylaxis -PT/OT -Psychiatry consult -Please call with questions if any -Thank you for allowing us to participate in patient's care and management Code Visit Inpatient E&M: [id number] Init Hosp L3
--- NOTE | 2018-03-01 16:08 | MRI_ITS ---
STUDY: MRI CERVICAL SPINE WITHOUT CONTRAST REASON FOR EXAM: Female, 67 years old. Weakness of the left body TECHNIQUE: Standardized fat and water weighted pulse sequences were obtained in the sagittal and axial planes. COMPARISON: None FINDINGS: Normal foramen magnum and brainstem-cervical cord junction. Normal craniovertebral junction. Normal anterior atlantoaxial articulation. Normal odontoid process. Mildly decreased cervical lordosis. Normal vertebral bodies and posterior osseous elements. C2-3: Normal endplates. Normal disc height, signal and morphology. Normal central canal and intervertebral neural foramina. C3-4: Normal endplates. Normal disc height, signal and small left posterolateral/foraminal disc osteophyte protrusion.. Normal central canal. Moderate to severe left neuroforaminal stenosis. C4-5: Normal endplates. Normal disc height, signal and tiny right paracentral disc protrusion. Normal central canal . Mild to moderate left neuroforaminal stenosis secondary to bony hypertrophy C5-6: Narrowed disc space and endplate spurring. Small central osteophyte protrusion. There is minor central canal narrowing and moderate left neuroforaminal stenosis secondary to bony hypertrophy C6-7: Narrowed disc space and endplate spurring with small right posterolateral disc protrusion. Mild narrowing of the central canal. Mild left neuroforaminal stenosis.. There is a small perineural cyst in the left nerve root foramen C7-T1: Normal endplates. Normal disc height, signal and morphology. Normal central canal. There is a small perineural cysts within the neural foramina bilaterally. Normal cervical cord. Normal visualized soft tissue structures. MRI/Spine Cervical (Routine) IMPRESSION: No evidence for acute fracture or subluxation. Advanced spondylosis and multilevel spinal stenosis secondary to disc disease and bony hypertrophy Electronically Signed: Dillon Stevens MD at 21:16 EST , Service support ,
--- NOTE | 2018-03-01 16:08 | MRI_ITS ---
STUDY: MRA NECK WITH AND WITHOUT CONTRAST REASON FOR EXAM: Female, 67 years old. CVA. Weakness. TECHNIQUE: 3-D pbdm-dy-yqodmj (TOF) imaging was performed in an 1.5 T MRI scanner. 9 ml of Gadavist was administered for the contrast enhanced images. COMPARISON: None. FINDINGS: RIGHT CAROTID ARTERIES: Normal right common carotid artery (CCA). Normal right common carotid bulb. Normal origin of the right internal carotid (ICA) artery without a significant stenosis. Normal visualized cervical portion of the right internal carotid artery. Normal origin of the right external carotid artery (ECA). LEFT CAROTID ARTERIES: Normal left common carotid artery (CCA). Normal left common carotid bulb. Normal origin of the left internal carotid (ICA) artery without a significant stenosis. Normal visualized cervical portion of the left internal carotid artery. Normal origin of the left external carotid artery (ECA). VERTEBRAL ARTERIES: Normal antegrade flow within the bilateral vertebral artery without a significant stenosis. There is a mild stenosis at the origin of the left vertebral artery. MRI/MRA Neck WITH and W/O Contrast IMPRESSION: Normal bilateral cervical carotid arteries. Mild stenosis at the origin of the left vertebral artery. Vertebral arteries are otherwise unremarkable. Electronically Signed: Nimco Elizabeth MD at 20:33 EST Tel , Service support ,
--- NOTE | 2018-03-01 16:08 | MRI_ITS ---
STUDY: MRA OF THE HEAD WITHOUT CONTRAST REASON FOR EXAM: Female, 67 years old. CVA and weakness left body. Numbness and tingling left face and body. TECHNIQUE: 3-D zbul-ji-wddohk (TOF) imaging was performed with MIPs. The study was performed unenhanced. COMPARISON: MR brain March 01, 2018 and MR a brain June 09, 2014 FINDINGS: Normal bilateral petrous carotid arteries. Normal right cavernous carotid artery with a normal supraclinoid bifurcation. Normal left cavernous carotid artery with a normal supraclinoid bifurcation. Normal right A1 segments of the anterior cerebral artery. Normal left A1 segments of the anterior cerebral artery. Normal intact anterior communicating artery (ACOM). Normal bilateral A2 segments of the anterior cerebral arteries. Normal right M1 and M2 segments of the middle cerebral arteries, with a normal M1 bifurcation. Normal left M1 and M2 segments of the middle cerebral arteries, with a normal M1 bifurcation. Normal right posterior communicating artery (PCOM). Normal left posterior communicating artery (PCOM). Normal bilateral vertebral arteries. Normal basilar artery with a normal basilar bifurcation. The visualized bilateral superior cerebellar (SCA) arteries are normal. Normal bilateral P1, P2 and visualized P3 segments of the posterior cerebral arteries. There is no demonstrated aneurysm of the lower [place]. There is no major vessel occlusion or hemodynamically significant stenosis. There is no demonstrated abnormality of the visualized brain. MRI/MRA Head ONLY without Contrast IMPRESSION: Normal MRA of the head Electronically Signed: Pepe Blue MD at 22:47 EST , Service support ,
--- NOTE | 2018-03-01 16:08 | MRI_ITS ---
STUDY: MRI BRAIN WITHOUT CONTRAST REASON FOR EXAM: Female, 67 years old. CVA TECHNIQUE: Standardized multiplanar fat and water weighted pulse sequences were obtained. COMPARISON: CT of the brain March 01, 2018 MRI of the brain on June 09, 2014 FINDINGS: Mild atrophy and periventricular white matter ischemic changes without mass effect or restricted diffusion.. Normal bilateral basal ganglia. Normal thalami. There is no extra-axial fluid accumulation. Normal flow voids within the major intracranial circulation suggesting patency by spin echo criteria. Normal sella turcica, pituitary gland, infundibular stalk, optic chiasm and hypothalamus. Normal tectal plate and pineal gland. Normal midbrain, [place] and medulla. Normal cerebellum. Normal basal cisterns. Normal bilateral temporal bones. Normal bilateral internal auditory canals. No demonstrated orbital abnormality, within the constraints of a routine brain study. Mild mucosal thickening of left maxillary sinus.. Normal calvarium and skull base. Normal visualized soft tissue structures. Normal visualized upper cervical spine. MRI/Brain without Contrast IMPRESSION: Mild periventricular white matter ischemic changes without evidence for acute infarct. Electronically Signed: Dillon Stevens MD at 19:34 EST , Service support ,
[2018-03-01 16:09] LABS: T4 Free Direct 1.29 ng/dL (0.76-1.46)
[2018-03-01 16:42] LABS: Magnesium 2.1 mg/dL (1.6-2.6)
[2018-03-01] MEDS: Acetaminophen 325 MG Tablet 650 MG PO (17:25)
[2018-03-01] MEDS: 0.9% Normal Saline 1,000 ML 100 ML IV (17:27)
[2018-03-01 17:49] LABS: Hemoglobin A1c 5.8 % (4.2-6.3)
[2018-03-01] MEDS: clonazePAM 1 MG Tablet 2 MG PO (21:07)
[2018-03-01] MEDS: traZODone 100 MG Tablet 300 MG PO (21:07)
[2018-03-02] VITALS (12 sets, daily range): BP systolic 92–138; BP diastolic 40–63; PULSE 67–83; RESP 10–18; TEMP 36.1–36.8; O2SAT 92–96; BMI 33.0
[2018-03-02 02:05] LABS: Amphetamine Urine VISTA NEGATIVE (<1000 ng/mL); Barbiturate Urine VISTA NEGATIVE (< 200 ng/mL); Benzodiazepine Urine VISTA NEGATIVE (< 200 ng/mL); Cocaine Urine VISTA NEGATIVE (< 300 ng/mL); Ecstacy Urine VISTA POSITIVE (< 500 ng/mL); Methadone Urine VISTA NEGATIVE (< 300 ng/mL); PCP Urine VISTA NEGATIVE (< 25 ng/mL); THC Urine VISTA POSITIVE (< 50 ng/mL); Vista UDS pH Range 6
[2018-03-02] MEDS: 0.9% Normal Saline 1,000 ML 100 ML IV ×2 (04:01→17:17)
[2018-03-02] MEDS: Levothyroxine 75 MCG Tablet PO (05:30)
[2018-03-02 06:06] LABS: Absolute Lymphocyte Count 2.62 X10^3/ul (0.83-4.51); Absolute Neutrophil Count 3.1 X10^3/uL (2.0-7.7); Basophil# 0.02 X10^3/uL; Basophil% 0.3 % (0-1); Eosinophil# 0.19 X10^3/uL; Eosinophils% 2.9 % (0-5); Hematocrit 41.1 % (37-47); Hemoglobin 13.2 g/dl (12.0-15.0); Lymphocyte # 2.62 X10^3/ul (4.0); Lymphocyte % 39.9 % (19-41); Mean Corp Hgb Conc 32.1 g/gl (32-36); Mean Corpuscular Hgb 31.1 pg (27.0-32.0); Mean Corpuscular Volume 96.7 fL (81-99); Mean Platelet Vol. 9.6 fl (6.2-12.0); Monocyte# 0.58 X10^3/uL; Monocyte% 8.8 % (0-10); Neutrophil # 3.14 X10^3/uL (2.7-7.7); Neutrophil % 47.9 % (47-70); Platelet Count 190 K/mm3 (150-450); RBC Distribution Width CV 12.6 % (11.6-14.6); RBC Distribution Width SD 43.7 fl (35.1-43.9); Red Blood Count 4.25 M/mm3 (4.2-5.4); White Blood Count 6.6 K/mm3 (4.4-11.0)
[2018-03-02 06:16] LABS: POSITIVE COUNT NO; POSITIVE DIFFERENTIAL NO; POSITIVE MORPHOLOGY NO
[2018-03-02 06:46] LABS: Anion Gap 6 (5-15); BUN 11 mg/dL (7-18); BUN/Creat Ratio 17.2 RATIO (10-20); Calcium,Total 7.8 mg/dL (8.5-10.1); Chloride 110 mmol/L (98-107); Cholesterol 165 mg/dL (200); Creatinine, Serum 0.64 mg/dL (0.55-1.02); EST Glomerular Filtration Rate 99 mL/min (>60); Est Glom Filt Rate - Afr Amer 120 mL/min (>60); Estimated Creatinine Clearance 69.31 ml/min; Glucose 83 mg/dL (74-106); High Density Lipoprotein 42 mg/dL; Potassium 4.2 mmol/L (3.5-5.1); Sodium Level 142 mmol/L (136-145); Triglycerides 150 mg/dL; Very Low Density Lipoprotein 30 mg/dL (5-40)
[2018-03-02] MEDS: Acetaminophen 325 MG Tablet 650 MG PO ×2 (08:46→17:27)
[2018-03-02] MEDS: morphine SR 15 MG Tablet PO (08:56)
[2018-03-02] MEDS: Metoprolol(XL)Succ 50 MG Tablet PO (09:00)
[2018-03-02] MEDS: Enoxaparin 40 MG/0.4 ML Syringe SC (09:01)
[2018-03-02] MEDS: Fluticasone 0.05% 1 SPRAY NASAL.SRY 2 SPRAY NASAL (09:06)
--- NOTE | 2018-03-02 11:06 | PCM.PROGNOTE ---
<Susana Saba - Last Filed: 03/02/18 11:20> Patient Problems: Active and Suspected Problems (Last Reviewed 05/31/17 @ 14:32 by Henrietta Corbett) Left-sided weakness (Acute) Subjective: Patient seen and examined. States vision is blurry and she is seeing double. States headache is not improved. Denies further paresthesias. - Physical Exam General: Alert, Oriented x3, Cooperative HEENT: Atraumatic, PERRLA, EOMI, Normocephalic Neck: Supple, No JVD, Negative Carotid Bruits Lungs: Clear to auscultation, Normal air movement Cardiovascular: Regular rate, No murmurs Abdomen: Bowel Sounds Present, Soft, Non Tender, Non-Distended Extremities: No clubbing, No cyanosis, No edema, Capillary Refill Less than 3 Seconds Skin: No rashes, No breakdown Musculoskeletal: No Tenderness to Palpation of Joints or Extremities Neurological: Cranial nerves II-XII grossly intact, Neuro grossly intact Psych/Mental Status: Normal Affect, Appropriate Vital Signs Temp Pulse Resp BP Pulse Ox 97 F L 83 16 138/63 H 95 03/02/18 09:00 03/02/18 09:00 03/02/18 09:00 03/02/18 09:00 03/02/18 09:00 Oxygen Flow Rate (L/min) 2 Oxygen Delivery Method Room Air Weight: 180 lb 5.41 oz Body Mass Index (BMI) 33.0 Finger Stick Blood Glucose 95 Intake and Output for Last 24 Hours 02/28/18 03/01/18 03/02/18 23:59 23:59 23:59 Intake Total 866 / 866 560 / 560 Balance 866 / 866 560 / 560 Laboratory Tests Past 24 Hrs 03/01/18 03/01/18 03/01/18 12:58 12:58 12:58 WBC 9.1 RBC 4.86 Hgb 15.5 H Hct 46.1 MCV 94.9 MCH 31.9 MCHC 33.6 RDW 12.7 RDW Differential 43.0 Plt Count 232 MPV 9.8 Immature Gran % (Auto) 0.200 Neut % (Auto) 58.6 Lymph % (Auto) 31.7 [place] % (Auto) 7.1 Eos % (Auto) 2.0 Baso % (Auto) 0.4 Absolute Neuts (auto) 5.4 Absolute Lymphs (auto) 2.90 Total Counted Not Reportable PT 12.8 INR 1.0 APTT 26.9 Sodium 138 Potassium 4.0 Chloride 105 Carbon Dioxide 27.0 Anion Gap 6 BUN 14 Creatinine 0.76 Estim Creat Clear Calc 58.37 Est GFR (MDRD) Af Amer 98 Est GFR (MDRD) Non-Af 81 BUN/Creatinine Ratio 18.5 Glucose 84 Hemoglobin A1c Calcium 8.7 Magnesium Troponin I < 0.015 Triglycerides Cholesterol LDL Cholesterol VLDL Cholesterol HDL Cholesterol TSH Free T4 Urine Opiates Screen Urine Methadone Screen Ur Barbiturates Screen Ur Phencyclidine Scrn Ur Amphetamines Screen U Methamphetamin-MDMA U Benzodiazepines Scrn Urine Cocaine Screen U Cannabinoids Screen Ur Drug Screen Comment 03/01/18 03/01/18 03/01/18 12:58 12:58 12:58 WBC RBC Hgb Hct MCV MCH MCHC RDW RDW Differential Plt Count MPV Immature Gran % (Auto) Neut % (Auto) Lymph % (Auto) [place] % (Auto) Eos % (Auto) Baso % (Auto) Absolute Neuts (auto) Absolute Lymphs (auto) Total Counted PT INR APTT Sodium Potassium Chloride Carbon Dioxide Anion Gap BUN Creatinine Estim Creat Clear Calc Est GFR (MDRD) Af Amer Est GFR (MDRD) Non-Af BUN/Creatinine Ratio Glucose Hemoglobin A1c 5.8 Calcium Magnesium Troponin I Triglycerides Cholesterol LDL Cholesterol VLDL Cholesterol HDL Cholesterol TSH 0.02 L Free T4 1.29 Urine Opiates Screen Urine Methadone Screen Ur Barbiturates Screen Ur Phencyclidine Scrn Ur Amphetamines Screen U Methamphetamin-MDMA U Benzodiazepines Scrn Urine Cocaine Screen U Cannabinoids Screen Ur Drug Screen Comment 03/01/18 03/02/18 03/02/18 12:58 01:25 05:19 WBC 6.6 RBC 4.25 Hgb 13.2 Hct 41.1 MCV 96.7 MCH 31.1 MCHC 32.1 RDW 12.6 RDW Differential 43.7 Plt Count 190 MPV 9.6 Immature Gran % (Auto) 0.200 Neut % (Auto) 47.9 Lymph % (Auto) 39.9 [place] % (Auto) 8.8 Eos % (Auto) 2.9 Baso % (Auto) 0.3 Absolute Neuts (auto) 3.1 Absolute Lymphs (auto) 2.62 Total Counted Not Reportable PT INR APTT Sodium Potassium Chloride Carbon Dioxide Anion Gap BUN Creatinine Estim Creat Clear Calc Est GFR (MDRD) Af Amer Est GFR (MDRD) Non-Af BUN/Creatinine Ratio Glucose Hemoglobin A1c Calcium Magnesium 2.1 Troponin I Triglycerides Cholesterol LDL Cholesterol VLDL Cholesterol HDL Cholesterol TSH Free T4 Urine Opiates Screen POSITIVE H Urine Methadone Screen NEGATIVE Ur Barbiturates Screen NEGATIVE Ur Phencyclidine Scrn NEGATIVE Ur Amphetamines Screen NEGATIVE U Methamphetamin-MDMA POSITIVE H U Benzodiazepines Scrn NEGATIVE Urine Cocaine Screen NEGATIVE U Cannabinoids Screen POSITIVE H Ur Drug Screen Comment 03/02/18 05:19 WBC RBC Hgb Hct MCV MCH MCHC RDW RDW Differential Plt Count MPV Immature Gran % (Auto) Neut % (Auto) Lymph % (Auto) [place] % (Auto) Eos % (Auto) Baso % (Auto) Absolute Neuts (auto) Absolute Lymphs (auto) Total Counted PT INR APTT Sodium 142 Potassium 4.2 Chloride 110 H Carbon Dioxide 26.0 Anion Gap 6 BUN 11 Creatinine 0.64 Estim Creat Clear Calc 69.31 Est GFR (MDRD) Af Amer 120 Est GFR (MDRD) Non-Af 99 BUN/Creatinine Ratio 17.2 Glucose 83 Hemoglobin A1c Calcium 7.8 L Magnesium Troponin I Triglycerides 150 Cholesterol 165 LDL Cholesterol 93 VLDL Cholesterol 30 HDL Cholesterol 42 TSH Free T4 Urine Opiates Screen Urine Methadone Screen Ur Barbiturates Screen Ur Phencyclidine Scrn Ur Amphetamines Screen U Methamphetamin-MDMA U Benzodiazepines Scrn Urine Cocaine Screen U Cannabinoids Screen Ur Drug Screen Comment Medical Necessity - Tobacco Use Smoking Status: Never smoker Tobacco Use: Non-smoker Assessment/Plan All Active Problems (Last Reviewed 05/31/17 @ 14:32 by Henrietta Corbett) Left-sided weakness (Acute) Palpitations (Acute) SOB (shortness of breath) (Acute) Fatigue (Acute) Chest pain (Acute) 1. Complex migraine-CVA ruled out. MRI of brain without evidence of acute infarct. Cervical spine MRI showed no evidence for acute fracture or subluxation. Advanced spondylosis and multilevel spinal stenosis secondary to disc disease and bony hypertrophy. Neck MRA shows normal bilateral carotid arteries. MRA of head normal. Neuro consulted. Neurology suspects complicated migraine versus conversion disorder. Neurology recommending psychiatric consult. Patient with history of chronic migraines. Toradol 15mg IV Q8 for complaints of headache. Tox screen on admission positive for opiates, methamphetamine, cannabinoids. Defer narcotics. DC when migraine improved. 2. Hypothyroidism-recent undetectable TSH with decreased Synthroid regimen. TSH on admission 0.02. T4 1.2. Further decrease Synthroid regimen to 50 mcg daily. Recommend further outpatient follow-up. 3. Hypertension-continue home metoprolol regimen. 4. Hyperlipidemia- continue statin. 5. Chronic pain syndrome with psoriatic arthritis-Follows with Dr. Alvarez. PT/OT. 6. Allergic rhinitis- Continue fluticasone regimen. 7. Obesity- Encouraged diet and lifestyle modifications. DVT prophylaxis-Lovenox sc. This patient was seen by BATSHEVA Rivera under the supervision of Dr. Mcqueen. <Neftaly Mcqueen - Last Filed: 03/02/18 13:44> - Physical Exam Vital Signs Temp Pulse Resp BP Pulse Ox 97 F L 83 16 138/63 H 95 03/02/18 09:00 03/02/18 13:00 03/02/18 09:00 03/02/18 09:00 03/02/18 09:00 Oxygen Flow Rate (L/min) 2 Oxygen Delivery Method Room Air Weight: 81.8 kg Body Mass Index (BMI) 33.0 Finger Stick Blood Glucose 95 Intake and Output for Last 24 Hours 02/28/18 03/01/18 03/02/18 23:59 23:59 23:59 Intake Total 866 / 866 1333 / 1333 Balance 866 / 866 1333 / 1333 Laboratory Tests Past 24 Hrs 03/01/18 03/01/18 03/01/18 12:58 12:58 12:58 WBC RBC Hgb Hct MCV MCH MCHC RDW RDW Differential Plt Count MPV Immature Gran % (Auto) Neut % (Auto) Lymph % (Auto) [place] % (Auto) Eos % (Auto) Baso % (Auto) Absolute Neuts (auto) Absolute Lymphs (auto) Total Counted Sodium Potassium Chloride Carbon Dioxide Anion Gap BUN Creatinine Estim Creat Clear Calc Est GFR (MDRD) Af Amer Est GFR (MDRD) Non-Af BUN/Creatinine Ratio Glucose Hemoglobin A1c 5.8 Calcium Magnesium Triglycerides Cholesterol LDL Cholesterol VLDL Cholesterol HDL Cholesterol TSH 0.02 L Free T4 1.29 Urine Opiates Screen Urine Methadone Screen Ur Barbiturates Screen Ur Phencyclidine Scrn Ur Amphetamines Screen U Methamphetamin-MDMA U Benzodiazepines Scrn Urine Cocaine Screen U Cannabinoids Screen Ur Drug Screen Comment 03/01/18 03/02/18 03/02/18 12:58 01:25 05:19 WBC 6.6 RBC 4.25 Hgb 13.2 Hct 41.1 MCV 96.7 MCH 31.1 MCHC 32.1 RDW 12.6 RDW Differential 43.7 Plt Count 190 MPV 9.6 Immature Gran % (Auto) 0.200 Neut % (Auto) 47.9 Lymph % (Auto) 39.9 [place] % (Auto) 8.8 Eos % (Auto) 2.9 Baso % (Auto) 0.3 Absolute Neuts (auto) 3.1 Absolute Lymphs (auto) 2.62 Total Counted Not Reportable Sodium Potassium Chloride Carbon Dioxide Anion Gap BUN Creatinine Estim Creat Clear Calc Est GFR (MDRD) Af Amer Est GFR (MDRD) Non-Af BUN/Creatinine Ratio Glucose Hemoglobin A1c Calcium Magnesium 2.1 Triglycerides Cholesterol LDL Cholesterol VLDL Cholesterol HDL Cholesterol TSH Free T4 Urine Opiates Screen POSITIVE H Urine Methadone Screen NEGATIVE Ur Barbiturates Screen NEGATIVE Ur Phencyclidine Scrn NEGATIVE Ur Amphetamines Screen NEGATIVE U Methamphetamin-MDMA POSITIVE H U Benzodiazepines Scrn NEGATIVE Urine Cocaine Screen NEGATIVE U Cannabinoids Screen POSITIVE H Ur Drug Screen Comment 03/02/18 05:19 WBC RBC Hgb Hct MCV MCH MCHC RDW RDW Differential Plt Count MPV Immature Gran % (Auto) Neut % (Auto) Lymph % (Auto) [place] % (Auto) Eos % (Auto) Baso % (Auto) Absolute Neuts (auto) Absolute Lymphs (auto) Total Counted Sodium 142 Potassium 4.2 Chloride 110 H Carbon Dioxide 26.0 Anion Gap 6 BUN 11 Creatinine 0.64 Estim Creat Clear Calc 69.31 Est GFR (MDRD) Af Amer 120 Est GFR (MDRD) Non-Af 99 BUN/Creatinine Ratio 17.2 Glucose 83 Hemoglobin A1c Calcium 7.8 L Magnesium Triglycerides 150 Cholesterol 165 LDL Cholesterol 93 VLDL Cholesterol 30 HDL Cholesterol 42 TSH Free T4 Urine Opiates Screen Urine Methadone Screen Ur Barbiturates Screen Ur Phencyclidine Scrn Ur Amphetamines Screen U Methamphetamin-MDMA U Benzodiazepines Scrn Urine Cocaine Screen U Cannabinoids Screen Ur Drug Screen Comment Assessment/Plan This patient was seen in conjunction with BATSHEVA Rivera . I have independently interviewed and examined the patient and reviewed pertinent historical, laboratory, and other data. Please refer to BATSHEVA Rivera note for details of this patient's presentation, findings, and recommendations. I have reviewed BATSHEVA Rivera note and concur with documented findings. In brief, patient is a 67-year-old lady admitted with intractable headache and assessment of acute status migrainosus made admitted to a monitored bed for subsequent management Physical Examination: GENERAL: Appears to be in some discomfort HEENT: Clear conjunctiva, NECK; supple, normal thyroid, CHEST: Diminished to auscultation bilaterally, HEART: Regular S1-S2 ABDOMEN: soft, non-tender, normoactive bowel sounds, RECTAL: deferred EXTREMITIES: No edema, no clubbing, no cyanosis. 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 Acute complex migraine exacerbation/ Status migrainosus 2. Essential hypertension 3. Hypothyroidism 4. Dyslipidemia 5. Chronic pain syndrome 6. Psoriatic arthritis 7. Allergic rhinitis 8. Obesity with BMI of 33.0 DVT prophylaxis-Lovenox sc. Recommendations: 1. I have discussed the results of my overview and impressions with the patient 2. Options for management were reviewed Code Visit OBSV E&M: 52221 Subsequent observation care L3
--- NOTE | 2018-03-02 12:35 | NURSING ---
asked pt about toradol allergy. Per pt she only had vomiting and itching when given oral toradol. Pt states she has taken IV toradol plenty of times before and she has been fine. Pt agreeable to taking IV toradol.
[2018-03-02] MEDS: Ketorolac 15 MG/ML Vial IV ×2 (13:15→21:47)
[2018-03-02 14:57] LABS: Mucous, Urine 0 SEEN /hpf (<or=2+); Red Blood Cells-Urine 0 SEEN /hpf (0-5); Squamous Epithelial Cells - UA 0 SEEN /hpf (5-10)
[2018-03-02 15:00] LABS: Color, Urine Yellow (Yellow); Glucose, Dipstick Normal (Normal); Ketone-Dipstick Negative (Negative); Leukocyte Esterase-Dipstick 500 /ul (Negative); Nitrite-Dipstick Positive (Negative); Occult Blood-Urine Negative /ul (Negative); Protein-Dipstick Negative (Negative); Urine Bilirubin Dipstick Negative (Negative); Urine Clarity Clear (Clear); Urine Urobilinogen Normal (Normal)
[2018-03-02 15:10] LABS: Bacteria 2+ /hpf (None Seen); White Blood Cells 0-5 SEEN /hpf (0-5)
[2018-03-02] MEDS: Ondansetron 4 MG/2 ML Vial IV (17:27)
[2018-03-02] MEDS: clonazePAM 1 MG Tablet 2 MG PO (21:47)
[2018-03-02] MEDS: traZODone 100 MG Tablet 300 MG PO (21:47)
[2018-03-03] VITALS (7 sets, daily range): BP systolic 117–131; BP diastolic 45–62; PULSE 66–82; RESP 13–16; TEMP 36.6–36.8; O2SAT 92–97; BMI 33.0
[2018-03-03] MEDS: 0.9% Normal Saline 1,000 ML 100 ML IV (04:45)
[2018-03-03] MEDS: Levothyroxine 50 MCG Tablet PO (06:16)
[2018-03-03] MEDS: Ketorolac 15 MG/ML Vial IV (06:17)
[2018-03-03] MEDS: Metoprolol(XL)Succ 50 MG Tablet PO (10:25)
[2018-03-03] MEDS: Fluticasone 0.05% 1 SPRAY NASAL.SRY 2 SPRAY NASAL (10:25)
[2018-03-03] MEDS: Enoxaparin 40 MG/0.4 ML Syringe SC (10:25)
[2018-03-03] MEDS: morphine SR 15 MG Tablet PO (10:28)
--- NOTE | 2018-03-03 11:27 | PCM.DC ---
- Discharge Diagnoses Current Active Problems: Current Active and Chronic Problems (Last Reviewed 05/31/17 @ 14:32 by Henrietta Corbett) Migraines (Chronic) Hypothyroidism (Chronic) Diabetes mellitus, type II (Chronic) Psoriatic arthritis (Chronic) GERD (gastroesophageal reflux disease) (Chronic) Fibromyalgia (Chronic) Left-sided weakness (Acute) You will use the following diet at home:: Calorie/Carbohydrate Controlled (specify 1200, 1400, etc) Discharge Activity: Return to Normal Activity Call your doctor if you observe: Numbness or Tingling, Shortness of breath, Dizziness, Fainting spells, Chest pain Additional Instructions: You will need your thyroid levels rechecked in 4-6 weeks by your primary care physician. Your Tirosint level was reduced due to low TSH. Allergies/Adverse Reactions: Allergies amoxicillin trihydrate [From Augmentin] Allergy (Verified 03/01/18 12:55) Shortness of breath ITCHING, SWELLING, HIVES aspirin Allergy (Verified 03/01/18 12:55) Anaphylaxis atropine sulfate [From Lomotil] Allergy (Verified 03/01/18 12:55) Itching SHORTNESS OF BREATH, HIVES cefixime [From Suprax] Allergy (Verified 03/01/18 12:55) Itching SHORTNESS OF BREATH, HIVES ceftriaxone sodium [From Rocephin] Allergy (Verified 03/01/18 12:55) Itching SHORTNESS OF BREATH, HIVES cephalexin monohydrate [From Keflex] Allergy (Verified 03/01/18 12:55) Itching SHORTNESS OF BREATH, HIVES ciprofloxacin [From Cipro] Allergy (Verified 03/01/18 12:55) Shortness of breath ciprofloxacin HCl [From Cipro] Allergy (Verified 03/01/18 12:55) Shortness of breath clindamycin Allergy (Verified 03/01/18 12:55) Itching HIVES, SHORTNESS OF BREATH diphenoxylate HCl [From Lomotil] Allergy (Verified 03/01/18 12:55) Itching SHORTNESS OF BREATH, HIVES gentamicin [Gentamicin] Allergy (Verified 03/01/18 12:55) Itching SHORTNESS OF BREATH, HIVES hydromorphone HCl [From Exalgo ER] Allergy (Verified 03/01/18 12:55) Itching SHORTNESS OF BREATH, HIVES metoclopramide HCl [From Reglan] Allergy (Verified 03/01/18 12:55) Anaphylaxis Penicillins [PCN] Allergy (Verified 03/01/18 12:55) Itching SHORTNESS OF BREATH, HIVES phenazopyridine HCl [From Pyridium] Allergy (Verified 03/01/18 12:55) Itching SHORTNESS OF BREATH, HIVES potassium clavulanate [From Augmentin] Allergy (Verified 03/01/18 12:55) Shortness of breath ITCHING, SWELLING, HIVES povidone-iodine [From Betadine] Allergy (Verified 03/01/18 12:55) Itching IF INJESTED propoxyphene HCl [From Darvon] Allergy (Verified 03/01/18 12:55) Itching SHORTNESS OF BREATH, HIVES red dye Allergy (Verified 03/01/18 12:55) Itching SHORTNESS OF BREATH, HIVES soap [From Betadine] Allergy (Verified 03/01/18 12:55) Itching IF INJESTED Sulfa (Sulfonamide Antibiotics) Allergy (Verified 03/01/18 12:55) Itching SHORTNESS OF BREATH, HIVES adhesive tape Adverse Reaction (Severe, Verified 03/01/18 12:55) skin peels clarithromycin [From Biaxin] Adverse Reaction (Severe, Verified 03/01/18 12:55) Vomiting ketorolac tromethamine [From Toradol] Adverse Reaction (Severe, Verified 03/01/18 12:55) Vomiting itching verapamil [Verapamil] Adverse Reaction (Severe, Verified 03/01/18 12:55) Other 3RD DEGREE HEART BLOCK azithromycin Adverse Reaction (Intermediate, Verified 03/01/18 12:55) vomiting iodine Adverse Reaction (Unknown, Verified 03/01/18 12:55) Unknown levofloxacin [From Levaquin] Adverse Reaction (Unknown, Verified 03/01/18 12:55) Unknown phenazopyridine [From Pyridium] Adverse Reaction (Unknown, Verified 03/01/18 12:55) Unknown carbamazepine [From Tegretol] Adverse Reaction (Verified 03/01/18 12:55) Unknown duloxetine HCl [From Cymbalta] Adverse Reaction (Verified 03/01/18 12:55) Unknown gabapentin [From Neurontin] Adverse Reaction (Verified 03/01/18 12:55) Other stomach pain, peripheral edema guaifenesin [From Entex T] Adverse Reaction (Verified 11/09/18 12:55) Vomiting TACHYCARDIA midazolam HCl [From Versed] Adverse Reaction (Verified 03/01/18 12:55) Other NO AFFECT-OKAY WITH DIPROVAN morphine Adverse Reaction (Verified 03/01/18 12:55) Other INSOMNIA, HALLUCINATIONS phenobarbital Adverse Reaction (Verified 03/01/18 12:55) Other PERODOXICAL REACTION pseudoephedrine HCl [From Entex T] Adverse Reaction (Verified 03/01/18 12:55) Vomiting TACHYCARDIA quetiapine fumarate [From Seroquel] Adverse Reaction (Verified 03/01/18 12:55) Other dystonia C-CLOR Allergy (Uncoded 10/30/13 23:22) Shortness of breath CAT SCAN DYE Allergy (Uncoded 10/30/13 23:22) Anaphylaxis CIPRO Allergy (Uncoded 10/30/13 23:22) Itching SHORTNESS OF BREATH, HIVES STERIODS Allergy (Uncoded 10/30/13 23:22) Other TRIGGERED ADDISONS DISEASE TAPE Adverse Reaction (Uncoded 10/30/13 23:22) Other SKIN PEELS XOPONEX Adverse Reaction (Uncoded 10/30/13 23:22) Other DISTONIA Medications to take at Discharge cholecalciferol (vitamin D3) 2,000 unit capsule 2,000 unit PO QDAY cap 05/30/17 cyclobenzaprine 10 mg tablet 10 mg PO HS tab 05/30/17 trazodone 300 mg tablet 300 mg PO QHS tab 05/30/17 Clonazepam 2 mg PO QHS 03/01/18 Epinephrine [Epi Pen] 0.3 mg IM PRN PRN 03/01/18 Erenumab-Aooe [Aimovig Autoinjector (2 Pack)] 70 mg SQ QMONTH 03/01/18 Fluticasone 0.05% [Flonase Nasal [place]] 2 spray NASAL DAILY 03/01/18 Lactobacillus Rhamnosus GG [Culturelle] 1 cap PO 03/01/18 Metoprolol Succinate [Toprol Xl] 50 mg PO DAILY 03/01/18 Morphine Sulfate 15 mg PO DAILY 03/01/18 Vitamin B Complex 1 tab PO DAILY 03/01/18 Nitrofurantoin Macrocrystals [Macrobid] 100 mg PO Q12 #10 capsule 03/03/18 Tirosint 75 mcg PO DAILY #30 03/03/18 The following prescriptions were given: Nitrofurantoin Macrocrystals [Macrobid] 100 mg PO Q12 #10 capsule Tirosint 75 mcg PO DAILY #30 Primary Care Physician: Anjelica Moore NP-C [Primary Care Provider] - Please follow up with your Primary Care Physician in: 1 Week Test Results: Test results from this visit will be discussed in further detail at your follow-up appointment, if applicable. Please Follow Up With: Yung Alvarez MD When: As scheduled Please Follow Up With: Primary Neurologist - May see Dr. Earl if no prior established neurologist. When: Call for follow up for chronic migraines. Proposed Discharge Date: 03/03/18
--- NOTE | 2018-03-03 11:33 | PCM.DC.SUM ---
<Susana Saba - Last Filed: 03/03/18 11:56> Discharge Date and Diagnosis Date of Admission: 03/01/18 Date of Discharge: 03/03/18 - Primary Discharge Diagnosis Active and Suspected Problems (Last Reviewed 05/31/17 @ 14:32 by Henrietta Corbett) 1. Acute complex migraine exacerbation with history of chronic migraines 2. Hypothyroidism with iatrogenic subclinical hyperthyroidism-Tirosint regimen reduced 3. Acute cystitis 4. Hypertension 5. Hyperlipidemia 6. Chronic pain syndrome with psoriatic arthritis 7. Allergic rhinitis 8. Obesity - Secondary Discharge Diagnosis Chronic Problems (Last Reviewed 05/31/17 @ 14:32 by Henrietta Corbett) Migraines (Chronic) Hypothyroidism (Chronic) Diabetes mellitus, type II (Chronic) Psoriatic arthritis (Chronic) GERD (gastroesophageal reflux disease) (Chronic) Fibromyalgia (Chronic) Mitral valve prolapse (Chronic) Hypertension (Chronic) Hospital Course and Treatment Imaging Results: Diagnostic Data Brain CT 03/01/18 13:18 IMPRESSION: Chronic involutional changes of the brain. Electronically Signed: Xu Davila MD at 14:04 EST Tel [phone], Service support , Brain MRI 03/01/18 16:08 IMPRESSION: Mild periventricular white matter ischemic changes without evidence for acute infarct. Electronically Signed: Dillon Stevens MD at 19:34 EST , Service support , Cervical Spine MRI 03/01/18 16:08 IMPRESSION: No evidence for acute fracture or subluxation. Advanced spondylosis and multilevel spinal stenosis secondary to disc disease and bony hypertrophy Electronically Signed: Dillon Stevens MD at 21:16 EST , Service support , Head MRA 03/01/18 16:08 IMPRESSION: Normal MRA of the head Electronically Signed: Pepe Blue MD at 22:47 EST , Service support , Neck MRA 03/01/18 16:08 IMPRESSION: Normal bilateral cervical carotid arteries. Mild stenosis at the origin of the left vertebral artery. Vertebral arteries are otherwise unremarkable. Electronically Signed: Nimco Elizabeth MD at 20:33 EST Tel , Service support , Dr. Earl- Neurology Operations: None Procedures: None Summary of Care Provided: The patient is a 67 year old F admitted 03/01/2018 due to migraine and left-sided paresthesias. 1. Acute complex migraine exacerbation with history of chronic migraines-CVA ruled out. MRI of brain without evidence of acute infarct. Cervical spine MRI showed no evidence for acute fracture or subluxation. Advanced spondylosis and multilevel spinal stenosis secondary to disc disease and bony hypertrophy. Neck MRA shows normal bilateral carotid arteries. MRA of head normal. Neuro consulted. Neurology suspects complicated migraine versus conversion disorder. Neurology recommending psychiatric consult. Patient can be referred for psychiatric consult by primary care physician. Tox screen on admission positive for opiates, methamphetamine, cannabinoids. Patient's migraine has resolved. Recommend follow-up with primary neurologist in 1 week. Follow-up with primary care physician in 1 week. 2. Hypothyroidism with iatrogenic subclinical hyperthyroidism-recent undetectable TSH with decreased Synthroid regimen by primary care physician. TSH on admission 0.02. T4 1.2. Continued reduced dose of Titosint to 75mcg daily. Recommend repeat TSH in 4-6 weeks by primary care physician. 3. Acute cystitis-UA with 500 leukocyte, positive nitrite. Discharge on Macrobid 100 mg twice daily for 5 days. 4. Hypertension-continue home metoprolol regimen. 5. Hyperlipidemia- continue statin. 6. Chronic pain syndrome with psoriatic arthritis-Follows with Dr. Alvarez. CC Dr. Alvarez on DC summary given patient's tox screen as noted above. Patient is also prescribed benzos QHS and tox screen negative for benzodiazepines? 7. Allergic rhinitis- Continue fluticasone regimen. 8. Obesity- Encouraged diet and lifestyle modifications. General: Alert, Oriented x3, Cooperative HEENT: Atraumatic, PERRLA, EOMI, Normocephalic Neck: Supple, No JVD, Negative Carotid Bruits Lungs: Clear to auscultation, Normal air movement Cardiovascular: Regular rate, No murmurs Abdomen: Bowel Sounds Present, Soft, Non Tender, Non-Distended Extremities: No clubbing, No cyanosis, No edema, Capillary Refill Less than 3 Seconds Skin: No rashes, No breakdown Musculoskeletal: No Tenderness to Palpation of Joints or Extremities Neurological: Cranial nerves II-XII grossly intact, Neuro grossly intact Psych/Mental Status: Normal Affect, Appropriate Patient seen exam prior to discharge. Physical assessment as noted above. Patient stable for discharge home with the follow-up recommendations as noted above. This patient was seen by BATSHEVA Rivera under the supervision of Dr. Mcqueen. - Physical Exam Vital Signs Temp Pulse Resp BP Pulse Ox 98.3 F 73 16 131/45 H 97 03/03/18 09:38 03/03/18 10:58 03/03/18 09:38 03/03/18 09:38 03/03/18 09:38 Oxygen Flow Rate (L/min) 2 Oxygen Delivery Method Room Air Weight: 180 lb 5.41 oz Body Mass Index (BMI) 33.0 Finger Stick Blood Glucose 95 Intake and Output for Last 24 Hours 03/01/18 03/02/18 03/03/18 23:59 23:59 23:59 Intake Total 866 / 866 2872 / 2872 605 / 605 Balance 866 / 866 2872 / 2872 605 / 605 Laboratory Tests Past 24 Hrs 03/02/18 01:25 Urine Color Yellow Urine Clarity Clear Urine pH 6.0 Ur Specific [place] 1.010 Urine Protein Negative Urine Glucose (UA) Normal Urine Ketones Negative Urine Occult Blood Negative Urine Nitrite Positive H Urine Bilirubin Negative Urine Urobilinogen Normal Ur Leukocyte Esterase 500 H Urine RBC 0 SEEN Urine WBC 0-5 SEEN Ur Squamous Epith Cells 0 SEEN Urine Bacteria 2+ Urine Mucus 0 SEEN Discharge Diet: 1800 Calorie Control Diet Discharge Activity: Return to Normal Activity Call your doctor if you observe: Numbness or Tingling, Shortness of breath, Dizziness, Fainting spells, Chest pain Home Medications: Medications to take at Discharge cholecalciferol (vitamin D3) 2,000 unit capsule 2,000 unit PO QDAY cap 05/30/17 cyclobenzaprine 10 mg tablet 10 mg PO HS tab 05/30/17 trazodone 300 mg tablet 300 mg PO QHS tab 05/30/17 Clonazepam 2 mg PO QHS 03/01/18 Epinephrine [Epi Pen] 0.3 mg IM PRN PRN 03/01/18 Erenumab-Aooe [Aimovig Autoinjector (2 Pack)] 70 mg SQ QMONTH 03/01/18 Fluticasone 0.05% [Flonase Nasal [place]] 2 spray NASAL DAILY 03/01/18 Lactobacillus Rhamnosus GG [Culturelle] 1 cap PO 03/01/18 Metoprolol Succinate [Toprol Xl] 50 mg PO DAILY 03/01/18 Morphine Sulfate 15 mg PO DAILY 03/01/18 Vitamin B Complex 1 tab PO DAILY 03/01/18 Nitrofurantoin Macrocrystals [Macrobid] 100 mg PO Q12 #10 capsule 03/03/18 Tirosint 75 mcg PO DAILY #30 03/03/18 Following Prescrptions Were Given to Patient: Nitrofurantoin Macrocrystals [Macrobid] 100 mg PO Q12 #10 capsule Tirosint 75 mcg PO DAILY #30 Primary Care Physician: Anjelica Moore NP-C [Primary Care Provider] - Please follow up with your Primary Care Physician in: 1 Week Please Follow Up With: Yung Alvarez MD When: As scheduled Please Follow Up With: Primary Neurologist - May see Dr. Earl if no prior established neurologist. When: Call for follow up for chronic migraines. Disposition: Home Minutes spent on discharge:: 35 Patient Condition:: Stable Medical Necessity - Tobacco Use Smoking Status: Unknown if ever smoked Tobacco Use: Non-smoker Meaningful Use Info Meaningful Use Diagnoses (Choose all that apply): None applicable <Neftaly Mcqueen - Last Filed: 03/03/18 12:38> Discharge Date and Diagnosis - Secondary Discharge Diagnosis Chronic Problems (Last Reviewed 05/31/17 @ 14:32 by Henrietta Corbett) Migraines (Chronic) Hypothyroidism (Chronic) Diabetes mellitus, type II (Chronic) Psoriatic arthritis (Chronic) GERD (gastroesophageal reflux disease) (Chronic) Fibromyalgia (Chronic) Mitral valve prolapse (Chronic) Hypertension (Chronic) Hospital Course and Treatment Summary of Care Provided: This patient was seen in conjunction with BATSHEVA Rivera . I have independently interviewed and examined the patient and reviewed pertinent historical, laboratory, and other data. Please refer to BATSHEVA Rivera note for details of this patient's presentation, findings, and recommendations. I have reviewed Susana Saba, CLINICAL INFORMATICS MANAGER-C note and concur with documented findings. In brief, patient is a 67-year-old lady admitted with intractable headache and assessment of acute status migrainosus made admitted to a monitored bed for subsequent management Physical Examination: GENERAL: Cooperative HEENT: Clear conjunctiva, NECK; supple, normal thyroid, CHEST: Diminished to auscultation bilaterally, HEART: Regular S1-S2 ABDOMEN: soft, non-tender, normoactive bowel sounds, RECTAL: deferred EXTREMITIES: No edema, no clubbing, no cyanosis. DISTRIBUTION CENTER ADMINISTRATOR: Awake, alert and oriented to time, place and person, Assessment: 1. Acute complex migraine exacerbation/ Status migrainosus 2. Essential hypertension 3. Hypothyroidism 4. Dyslipidemia 5. Chronic pain syndrome 6. Psoriatic arthritis 7. Allergic rhinitis 8. Obesity with BMI of 33.0 9. Acute cystitis 10. DVT prophylaxis-Lovenox sc. Hospital course: As elicited above by Susana Saba CLINICAL INFORMATICS MANAGER - Physical Exam Vital Signs Temp Pulse Resp BP Pulse Ox 98.3 F 73 16 131/45 H 97 03/03/18 09:38 03/03/18 10:58 03/03/18 09:38 03/03/18 09:38 03/03/18 09:38 Oxygen Flow Rate (L/min) 2 Oxygen Delivery Method Room Air Weight: 81.8 kg Body Mass Index (BMI) 33.0 Finger Stick Blood Glucose 95 Intake and Output for Last 24 Hours 03/01/18 03/02/18 03/03/18 23:59 23:59 23:59 Intake Total 866 / 866 2872 / 2872 845 / 845 Balance 866 / 866 2872 / 2872 845 / 845 Laboratory Tests Past 24 Hrs 03/02/18 01:25 Urine Color Yellow Urine Clarity Clear Urine pH 6.0 Ur Specific [place] 1.010 Urine Protein Negative Urine Glucose (UA) Normal Urine Ketones Negative Urine Occult Blood Negative Urine Nitrite Positive H Urine Bilirubin Negative Urine Urobilinogen Normal Ur Leukocyte Esterase 500 H Urine RBC 0 SEEN Urine WBC 0-5 SEEN Ur Squamous Epith Cells 0 SEEN Urine Bacteria 2+ Urine Mucus 0 SEEN Code Visit OBSV E&M: 15836 Observation care discharge
--- NOTE | 2018-03-03 11:39 | DS.PCM_ITS ---
<Susana Saba - Last Filed: 03/03/18 11:56> Discharge Date and Diagnosis Date of Admission: 03/01/18 Date of Discharge: 03/03/18 - Primary Discharge Diagnosis Active and Suspected Problems (Last Reviewed 05/31/17 @ 14:32 by Henrietta Corbett) 1. Acute complex migraine exacerbation with history of chronic migraines 2. Hypothyroidism with iatrogenic subclinical hyperthyroidism-Tirosint regimen reduced 3. Acute cystitis 4. Hypertension 5. Hyperlipidemia 6. Chronic pain syndrome with psoriatic arthritis 7. Allergic rhinitis 8. Obesity - Secondary Discharge Diagnosis Chronic Problems (Last Reviewed 05/31/17 @ 14:32 by Henrietta Corbett) Migraines (Chronic) Hypothyroidism (Chronic) Diabetes mellitus, type II (Chronic) Psoriatic arthritis (Chronic) GERD (gastroesophageal reflux disease) (Chronic) Fibromyalgia (Chronic) Mitral valve prolapse (Chronic) Hypertension (Chronic) Hospital Course and Treatment Imaging Results: Diagnostic Data Brain CT 03/01/18 13:18 IMPRESSION: Chronic involutional changes of the brain. Electronically Signed: Xu Davila MD at 14:04 EST Tel [phone], Service support , Brain MRI 03/01/18 16:08 IMPRESSION: Mild periventricular white matter ischemic changes without evidence for acute infarct. Electronically Signed: Dillon Stevens MD at 19:34 EST , Service support , Cervical Spine MRI 03/01/18 16:08 IMPRESSION: No evidence for acute fracture or subluxation. Advanced spondylosis and multilevel spinal stenosis secondary to disc disease and bony hypertrophy Electronically Signed: Dillon Stevens MD at 21:16 EST , Service support , Head MRA 03/01/18 16:08 IMPRESSION: Normal MRA of the head Electronically Signed: Pepe Blue MD at 22:47 EST , Service support , Neck MRA 03/01/18 16:08 IMPRESSION: Normal bilateral cervical carotid arteries. Mild stenosis at the origin of the left vertebral artery. Vertebral arteries are otherwise unremarkable. Electronically Signed: Nimco Elizabeth MD at 20:33 EST Tel , Service support , Dr. Earl- Neurology Operations: None Procedures: None Summary of Care Provided: The patient is a 67 year old F admitted 03/01/2018 due to migraine and left-sided paresthesias. 1. Acute complex migraine exacerbation with history of chronic migraines-CVA ruled out. MRI of brain without evidence of acute infarct. Cervical spine MRI showed no evidence for acute fracture or subluxation. Advanced spondylosis and multilevel spinal stenosis secondary to disc disease and bony hypertrophy. Neck MRA shows normal bilateral carotid arteries. MRA of head normal. Neuro consulted. Neurology suspects complicated migraine versus conversion disorder. Neurology recommending psychiatric consult. Patient can be referred for psychiatric consult by primary care physician. Tox screen on admission positive for opiates, methamphetamine, cannabinoids. Patient's migraine has resolved. Recommend follow-up with primary neurologist in 1 week. Follow-up with primary care physician in 1 week. 2. Hypothyroidism with iatrogenic subclinical hyperthyroidism-recent unde tectable TSH with decreased Synthroid regimen by primary care physician. TSH on admission 0.02. T4 1.2. Continued reduced dose of Titosint to 75mcg daily. Recommend repeat TSH in 4-6 weeks by primary care physician. 3. Acute cystitis-UA with 500 leukocyte, positive nitrite. Discharge on Macrobid 100 mg twice daily for 5 days. 4. Hypertension-continue home metoprolol regimen. 5. Hyperlipidemia- continue statin. 6. Chronic pain syndrome with psoriatic arthritis-Follows with Dr. Alvarez. CC Dr. Alvarez on DC summary given patient's tox screen as noted above. Patient is also prescribed benzos QHS and tox screen negative for benzodiazepines? 7. Allergic rhinitis- Continue fluticasone regimen. 8. Obesity- Encouraged diet and lifestyle modifications. General: Alert, Oriented x3, Cooperative HEENT: Atraumatic, PERRLA, EOMI, Normocephalic Neck: Supple, No JVD, Negative Carotid Bruits Lungs: Clear to auscultation, Normal air movement Cardiovascular: Regular rate, No murmurs Abdomen: Bowel Sounds Present, Soft, Non Tender, Non-Distended Extremities: No clubbing, No cyanosis, No edema, Capillary Refill Less than 3 Seconds Skin: No rashes, No breakdown Musculoskeletal: No Tenderness to Palpation of Joints or Extremities Neurological: Cranial nerves II-XII grossly intact, Neuro grossly intact Psych/Mental Status: Normal Affect, Appropriate Patient seen exam prior to discharge. Physical assessment as noted above. Patient stable for discharge home with the follow-up recommendations as noted above. This patient was seen by BATSHEVA Rivera under the supervision of Dr. Mcqueen. - Physical Exam Vital Signs Temp Pulse Resp BP Pulse Ox 98.3 F 73 16 131/45 H 97 03/03/18 09:38 03/03/18 10:58 03/03/18 09:38 03/03/18 09:38 03/03/18 09:38 Oxygen Flow Rate (L/min) 2 Oxygen Delivery Method Room Air Weight: 180 lb 5.41 oz Body Mass Index (BMI) 33.0 Finger Stick Blood Glucose 95 Intake and Output for Last 24 Hours 03/01/18 03/02/18 03/03/18 23:59 23:59 23:59 Intake Total 866 / 866 2872 / 2872 605 / 605 Balance 866 / 866 2872 / 2872 605 / 605 Laboratory Tests Past 24 Hrs 03/02/18 01:25 Urine Color Yellow Urine Clarity Clear Urine pH 6.0 Ur Specific [place] 1.010 Urine Protein Negative Urine Glucose (UA) Normal Urine Ketones Negative Urine Occult Blood Negative Urine Nitrite Positive H Urine Bilirubin Negative Urine Urobilinogen Normal Ur Leukocyte Esterase 500 H Urine RBC 0 SEEN Urine WBC 0-5 SEEN Ur Squamous Epith Cells 0 SEEN Urine Bacteria 2+ Urine Mucus 0 SEEN Discharge Diet: 1800 Calorie Control Diet Discharge Activity: Return to Normal Activity Call your doctor if you observe: Numbness or Tingling, Shortness of breath, Dizziness, Fainting spells, Chest pain Home Medications: Medications to take at Discharge cholecalciferol (vitamin D3) 2,000 unit capsule 2,000 unit PO QDAY cap 05/30/17 cyclobenzaprine 10 mg tablet 10 mg PO HS tab 05/30/17 trazodone 300 mg tablet 300 mg PO QHS tab 05/30/17 Clonazepam 2 mg PO QHS 03/01/18 Epinephrine [Epi Pen] 0.3 mg IM PRN PRN 03/01/18 Erenumab-Aooe [Aimovig Autoinjector (2 Pack)] 70 mg SQ QMONTH 03/01/18 Fluticasone 0.05% [Flonase Nasal [place]] 2 spray NASAL DAILY 03/01/18 Lactobacillus Rhamnosus GG [Culturelle] 1 cap PO 03/01/18 Metoprolol Succinate [Toprol Xl] 50 mg PO DAILY 03/01/18 Morphine Sulfate 15 mg PO DAILY 03/01/18 Vitamin B Complex 1 tab PO DAILY 03/01/18 Nitrofurantoin Macrocrystals [Macrobid] 100 mg PO Q12 #10 capsule 03/03/18 Tirosint 75 mcg PO DAILY #30 03/03/18 Following Prescrptions Were Given to Patient: Nitrofurantoin Macrocrystals [Macrobid] 100 mg PO Q12 #10 capsule Tirosint 75 mcg PO DAILY #30 Primary Care Physician: Anjelica Moore NP-C [Primary Care Provider] - Please follow up with your Primary Care Physician in: 1 Week Please Follow Up With: Yung Alvarez MD When: As scheduled Please Follow Up With: Primary Neurologist - May see Dr. Earl if no prior established neurologist. When: Call for follow up for chronic migraines. Disposition: Home Minutes spent on discharge:: 35 Patient Condition:: Stable Medical Necessity - Tobacco Use Smoking Status: Unknown if ever smoked Tobacco Use: Non-smoker Meaningful Use Info Meaningful Use Diagnoses (Choose all that apply): None applicable <Neftaly Mcqueen - Last Filed: 03/03/18 12:38> Discharge Date and Diagnosis - Secondary Discharge Diagnosis Chronic Problems (Last Reviewed 05/31/17 @ 14:32 by Henrietta Corbett) Migraines (Chronic) Hypothyroidism (Chronic) Diabetes mellitus, type II (Chronic) Psoriatic arthritis (Chronic) GERD (gastroesophageal reflux disease) (Chronic) Fibromyalgia (Chronic) Mitral valve prolapse (Chronic) Hypertension (Chronic) Hospital Course and Treatment Summary of Care Provided: This patient was seen in conjunction with BATSHEVA Rivera . I have independently interviewed and examined the patient and reviewed pertinent historical, laboratory, and other data. Please refer to BATSHEVA Rivera note for details of this patient's presentation, findings, and recommendations. I have reviewed Susana Saba, SANDING SUPERVISOR-C note and concur with documented findings. In brief, patient is a 67-year-old lady admitted with intractable headache and assessment of acute status migrainosus made admitted to a monitored bed for subsequent management Physical Examination: GENERAL: Cooperative HEENT: Clear conjunctiva, NECK; supple, normal thyroid, CHEST: Diminished to auscultation bilaterally, HEART: Regular S1-S2 ABDOMEN: soft, non-tender, normoactive bowel sounds, RECTAL: deferred EXTREMITIES: No edema, no clubbing, no cyanosis. MANAGER ANDROID: Awake, alert and oriented to time, place and person, Assessment: 1. Acute complex migraine exacerbation/ Status migrainosus 2. Essential hypertension 3. Hypothyroidism 4. Dyslipidemia 5. Chronic pain syndrome 6. Psoriatic arthritis 7. Allergic rhinitis 8. Obesity with BMI of 33.0 9. Acute cystitis 10. DVT prophylaxis-Lovenox sc. Hospital course: As elicited above by Susana Saba SANDING SUPERVISOR - Physical Exam Vital Signs Temp Pulse Resp BP Pulse Ox 98.3 F 73 16 131/45 H 97 03/03/18 09:38 03/03/18 10:58 03/03/18 09:38 03/03/18 09:38 03/03/18 09:38 Oxygen Flow Rate (L/min) 2 Oxygen Delivery Method Room Air Weight: 81.8 kg Body Mass Index (BMI) 33.0 Finger Stick Blood Glucose 95 Intake and Output for Last 24 Hours 03/01/18 03/02/18 03/03/18 23:59 23:59 23:59 Intake Total 866 / 866 2872 / 2872 845 / 845 Balance 866 / 866 2872 / 2872 845 / 845 Laboratory Tests Past 24 Hrs 03/02/18 01:25 Urine Color Yellow Urine Clarity Clear Urine pH 6.0 Ur Specific [place] 1.010 Urine Protein Negative Urine Glucose (UA) Normal Urine Ketones Negative Urine Occult Blood Negative Urine Nitrite Positive H Urine Bilirubin Negative Urine Urobilinogen Normal Ur Leukocyte Esterase 500 H Urine RBC 0 SEEN Urine WBC 0-5 SEEN Ur Squamous Epith Cells 0 SEEN Urine Bacteria 2+ Urine Mucus 0 SEEN Code Visit OBSV E&M: 00250 Observation care discharge
== END 2018-03-03 11:29 | disposition home or self-care (01) ==
LOC: ED 13:35 → PCU 15:30
PROVIDERS: Nurse Practitioner Family; Admitting Provider Family Medicine; Emergency Provider Emergency Medicine; Family Provider Nurse Practitioner; PCP Nurse Practitioner; Visit Provider Internal Medicine
DX: G43.109 Migraine with aura, not intractable, without status migrainosus (principal); Z79.899 Other long term (current) drug therapy; E03.9 Hypothyroidism, unspecified; N30.00 Acute cystitis without hematuria; E78.5 Hyperlipidemia, unspecified; E66.9 Obesity, unspecified; Z68.33 Body mass index [BMI] 33.0-33.9, adult; Z71.3 Dietary counseling and surveillance; G89.4 Chronic pain syndrome; L40.50 Arthropathic psoriasis, unspecified; I10 Essential (primary) hypertension; E05.80 Other thyrotoxicosis without thyrotoxic crisis or storm; T50.995A Adverse effect of other drugs, medicaments and biological substances, initial encounter; M79.7 Fibromyalgia; K21.9 Gastro-esophageal reflux disease without esophagitis; E11.9 Type 2 diabetes mellitus without complications; J30.9 Allergic rhinitis, unspecified; R47.81 Slurred speech
CPT/HCPCS: 36415; 70450; 70544; 70549; 70551; 72141; 80048; 80061; 80307; 81001; 83036; 83735; 84439; 84443; 84484; 85025; 85610; 85730; 87086; 87088; 87186; 92523; 93005; 96361; 96365; 96366; 96372; 96375; 96376; 97162; 97166; 97802; 99218; 99283; A9585; J2185; J7030; A4216; G0378; J2405

== ENCOUNTER → 2018-03-19 14:30 | Outpatient (CLI) | payer OTHER, SELFPAY ==
[2018-03-19 14:30] VITALS: BMI 32.2
--- NOTE | 2018-03-19 14:45 | RAD_ITS ---
STUDY: X-RAY - CERVICAL SPINE REASON FOR EXAM: Female, 67 years old. Neck pain. TECHNIQUE: 4 view(s) of the cervical spine were obtained. COMPARISON: None FINDINGS: Normal anterior atlantoaxial articulation. Normal odontoid process. Normal cervical lordosis. There is endplate spondylosis in the lower cervical spine. There is no demonstrated acute fracture on this examination. There is narrowing of C3-C4, C5-C6 and C6-7 disc spaces. There are small posterior degenerative spurs at the level of C6-C7. There is no prevertebral soft tissue swelling. RAD/Cerv Spine 2 or 3 Views IMPRESSION: Degenerative changes of the cervical spine as described above. Electronically Signed: Conrado Aldana MD at 14:27 EST Tel , Service support ,
--- OUTSIDE RECORDS SUMMARY | 2018-05-15 06:18 | XMS RPT_ITS | Continuity of Care Document ---
:1950 Author Organization [facility] Address [address] [facility] [address] [place] [address] Phone Care Team Providers Name Role Phone Oscar KARTHIK, Paloma Unavailable Mason Garnett Unavailable Neftaly Rose MD Unavailable Garth GARZA, Yaniv King Unavailable Khushbu Cevallos Unavailable Unavailable Slarb DIRECTOR INSTRUMENTATION, Dora Unavailable Unavailable Long DIRECTOR INSTRUMENTATION, Bina Hernandez Unavailable Unavailable Tiesha Avina Unavailable Unavailable Unavailable Unavailable Problems Name Dates Details Abdominal pain, acute, left lower quadrant (Renamed from Acute abdominal pain in left lower quadrant) (R10.32, 789.04) Status: Active Abnormal CXR (R93.89, 793.2) Status: Active Abnormal thyroid function test (R94.6, 794.5) Comments: to get labs week of Mar 25 Status: Active Abnormal TSH (R79.89, 790.6) Comments: was 0.08 in Nov now 18.99 labs done at [facility] will repeat with our lab today andnow seeing Barrie most recent tsh undectable per pt.she is asking for another specialist or myself to follow Status: Active Acquired hypothyroidism (E03.9, 244.9) Comments: Seeing Dr. Lobato in [place] on tircent they monitor Status: Active Allergic rhinitis (J30.9, 477.9) Status: Active Arthritis (M19.90, 716.90) Status: Active Back pain (M54.9, 724.5) Comments: Sees Dr Alvarez, thinking of pain stimulator Status: Active BMI 32.0-32.9,adult (Z68.32, V85.32) Status: Active BMI 32.0-32.9,adult (Z68.32, V85.32) Status: Active BMI 33.0-33.9,adult (Z68.33, V85.33) Status: Active Breast cancer screening (Z12.31, V76.10) Status: Active Chest pain (R07.9, 786.50) Comments: chest pressure yesterday and thick throat took antacid, rt shoulder radiation no pain in office, ekg ok send to Dr. Liang needs new cardiologistDr. Skyler Santos retired Status: Active [facility] arthritis (M19.90, 716.94) Comments: seen by Dr. Kwan Status: Active Deliveries (Parity) Comments: 3. Status: Active Depression (F32.9, 311) Comments: Sees Dr. Caden Greer Status: Active Depression (311.) (311) Status: Active Diabetes mellitus type II, controlled (E11.9, 250.00) Comments: stopped seeing Barrington Wayne seeing Dany in [place] Status: Active Encounter for gynecological examination without abnormal finding (Z01.419, V72.31) Status: Active Encounter for screening mammogram for breast cancer (Z12.31, V76.12) Status: Active Encounter for screening mammogram for breast cancer (Renamed from Encounter for screening mammogram for malignant neoplasm of breast) (Z12.31, V76.12) Status: Active Epigastric abdominal tenderness (R10.816, 789.66) Status: Active Esophageal reflux (K21.9, 530.81) Status: Active Et (Eustachian tube disorder), left (H69.92, 381.9) Status: Active Fatigue (R53.83, 780.79) Status: Active Fatty liver (K76.0, 571.8) Comments: Last alpha and liver 8-16, will repeat Status: Active Fibromyalgia (Renamed from Diffuse myofascial pain syndrome) (M79.7, 729.1) Comments: she feels better Status: Active Hearing loss of both ears due to cerumen impaction (H61.23, 389.8) Status: Active Hiatal hernia (K44.9, 553.3) Status: Active High triglycerides (E78.1, 272.1) Comments: was given script from [facility] saying to take fenofibrate one week, this is not correct sending [facility] script [facility] Status: Active History of TIA (transient ischemic attack) (Z86.73, V12.54) Status: Active Hypertension (I10, 401.9) Comments: new diagnosis, was being treated initially by endocrine, [facility], ekg todaytakes metoprolol at hs Status: Active 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, 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) Comments: related to rheumatic fever per nan Rose fingers did not think psoriatic arthritis Status: Active Low back pain potentially associated with radiculopathy (M54.5, 724.2) Comments: she seeing painmanagement Basali Status: Active Lymphadenopathy (R59.1, 785.6) Comments: brother with non-Hodgkins Lymphomalabs neg, tender lymph but no discretes nodes palpated,finish workup consider Pet scan in future Status: Active Memory change (R41.3, 780.93) Status: Active Migraine (G43.909, 346.90) Comments: saw euro and getting botox Status: Active Mitral valve disease (I05.9, 394.9) Comments: eldon Rahman Status: Active Nausea (R11.0, 787.02) Status: Active Need for prophylactic vaccination and inoculation against influenza (Renamed from Need for immunization against influenza) (Z23, V04.81) Status: Active Nonsmoker (Z78.9, V49.89) Status: Active Osteoarthritis (M19.90, 715.90) Comments: seeing Gradisar to get bilateral Status: Active Osteopenia (M85.80, 733.90) Comments: restart prolia Status: Active Osteoporosis (M81.0, 733.00) Comments: took prolia - no problems Status: Active Other constipation (K59.09, 564.09) Comments: feels its better Status: Active Paresthesia of arm (R20.2, 782.0) Comments: face and left side with weakness and left past finger pointing, has seen Garnett in past for migraine, Status: Active Pelvic Pain (625.9) Status: Active Pregnancies () Comments: 3. Status: Active Psoriasis (L40.9, 696.1) Status: Active Psoriatic arthritis (L40.50, 696.0) Comments: Saw Nicole not on humira not following any one now, had side effects from Humira Status: Active Right upper quadrant pain (R10.11, 789.01) Status: Active Rosacea (L71.9, 695.3) Status: Active Shortness of breath at rest (R06.02, 786.05) Status: Active Sinusitis (J32.9, 473.9) Comments: med/allergy list reviewed Ok to use vibramycin/doxycycline with zofran due to xple allergies Status: Active Skin lesion of left leg (L98.9, 709.9) Status: Active Swelling of both lower extremities (M79.89, 729.81) Status: Active Swelling of Limb (Renamed from Limb swelling) (M79.89, 729.81) Comments: doppler neg femi wrap Status: Active Tennis elbow (M77.10, 726.32) Comments: needs elbow strap Status: Active Unspecified Diagnosis Status: Active Unspecified Diagnosis Status: Active Urinary frequency (R35.0, 788.41) Status: Active Urinary incontinence (R32, 788.30) Status: Active UTI symptoms (R39.9, 788.99) Comments: has interstitial cystitis Status: Active Vitamin D deficiency (E55.9, 268.9) Status: Active Medications Name Dates Details Aimovig 70 MG/ML Subcutaneous Solution Auto-injector Active monthly (70 MG/ML) CLONAZEPAM, 2MG (Oral Tablet) 1 (one) Tablet Tablet q hs for 30 days Quantity: 30 {Tablet} Refills: 0 Ordered:11-Aug-2014 Rasta Parish DOa Satish Start : 07-Jul-2014 Active CULTURELLE (Oral Capsule) 1 cap daily Active Cyclobenzaprine HCl 10 MG Oral Tablet 1 (one) Tablet qhs for 30 days Quantity: 30 {Tablet} Refills: 0 Ordered:14-Jul-2016 Oscar ANGELES, Anjelica Faulkner CNP Start : 14-Jul-2016 Active Comments:Dr Alvarez EpiPen 2-Alfredo 0.3 MG/0.3ML Injection Solution Auto-injector 1 (one) Soln Auto-inj Soln Auto-inj as needed for 0 days Quantity: 1 {Dose_Pack} Refills: 1 Ordered:14-Jul-2016 Oscar ANGELES, Anjelica Faulkner CNP Start : 14-Jul-2016 Active Comments:Medication taken as needed. Generic Please Flonase Allergy Relief 50 MCG/ACT Nasal Suspension 2 (two) Imlay Imlay daily for 0 days Quantity: 1 {Imlay} Refills: 0 Ordered:05-Feb-2018 Khushbu Cevallos Start : 02-Nov-2017 Active Metoprolol Succinate ER 50 MG Oral Tablet Extended Release 24 Hour 1 (one) Tablet daily for 0 days Quantity: 30 {Tablet} Refills: 0 Ordered:02-Nov-2017 Oscar ANGELES, Anjelica Faulkner CNP Start : 02-Nov-2017 Active Comments:Endo Morphine Sulfate 15 MG Oral Tablet 1 qd (15 MG) Active Tirosint 100 MCG Oral Capsule 1 one daily and 2 on wednesdays (100 MCG) Active TRAZODONE HCL, 300MG (Oral Tablet) 1 (one) Tablet Tablet q hs for 30 days Quantity: 30 {Tablet} Refills: 0 Ordered:11-Aug-2014 Arabella Parish DO Start : 07-Jul-2014 Active VITAMIN B12, 100MCG (Oral Tablet) 1 tab daily (100 MCG) Active VITAMIN B-COMPLEX (Oral Tablet) 1 tab daily Active Vitamin D3 Super Strength 2000 UNIT Oral Capsule 1 (one) Capsule daily for 0 days Quantity: 30 {Capsule} Refills: 0 Ordered:17-Oct-2016 Oscar ANGELES, Anjelica Moody CNP, Anjelica Hutchinson Start : 17-Oct-2016 Active Cheratussin AC 100-10 MG/5ML Oral Syrup 4 Milliliter qhs prn cough for 0 days Quantity: 120 {Milliliter} Refills: 0 Ordered:31-Jul-2017 Long Bina GREEN Start : 01-May-2017 End : 31-Jul-2017 Inactive Doxycycline Hyclate 100 MG Oral Tablet Delayed Release 1 (one) Tablet DR bid for 10 days Quantity: 20 {Tablet} Refills: 0 Ordered:23-Nov-2015 Oscar ANGELES, Anjelica Moody CNP, Anjelica Hutchinson Start : 23-Nov-2015 End : 03-Dec-2015 Inactive Embeda 20-0.8 MG Oral Capsule Extended Release 1 (one) Capsule daily per Dr Basali for 30 days Quantity: 30 {Capsule} Refills: 0 Ordered:31-Jul-2017 Bina Liriano LPN L Start : 01-May-2017 End : 31-Jul-2017 Inactive Fenofibrate Micronized 67 MG Oral Capsule 1 (one) Capsule once daily with a meal for 0 days Quantity: 90 {Capsule} Refills: 0 Ordered:31-Jul-2017 Joey Liriano LPNn L Start : 01-May-2017 End : 31-Jul-2017 Inactive Macrobid 100 MG Oral Capsule 1 (one) Capsule bid for 7 days Quantity: 14 {Capsule} Refills: 0 Ordered:17-Oct-2016 Oscar ANGELES, Anjelica Moody CNP, Anjelica Hutchinson Start : 17-Oct-2016 End : 24-Oct-2016 Inactive MetroNIDAZOLE 250 MG Oral Tablet 1 (one) Tablet tid for 7 days Quantity: 21 {Tablet} Refills: 0 Ordered:12-Nov-2015 Oscar ANGELES, Anjelica Moody CNP, Anjelica Hutchinson Start : 12-Nov-2015 End : 19-Nov-2015 Inactive Nitrofurantoin Macrocrystal 100 MG Oral Capsule 1 (one) Capsule q12 hrs x 5 days for 5 days Quantity: 10 {Capsule} Refills: 0 Ordered:11-Feb-2018 Oscar ANGELES, Anjelica Moody CNP, Anjelica Hutchinson Start : 11-Feb-2018 End : 16-Feb-2018 Inactive Comments:with food Omeprazole 40 MG Oral Capsule Delayed Release 1 (one) Capsule Capsule daily for 0 days Quantity: 30 {Capsule} Refills: 3 Ordered:31-Jul-2017 Joey Liriano LPNn L Start : 23-Mar-2017 End : 31-Jul-2017 Inactive PROLIA, 60MG/ML (Subcutaneous Solution) 1 inj q 6 months (60 MG/ML) Inactive PROzac 10 MG Oral Capsule 1 (one) Capsule Capsule twice weekly for 30 days Quantity: 15 {Capsule} Refills: 0 Ordered:14-Jul-2016 Oscar ANGELES, Anjelica Moody CNP, Anjelica Hutchinson Start : 14-Jul-2016 End : 13-Aug-2016 Inactive SAVELLA, 50MG (Oral Tablet) 1 (one) Tablet Tablet bid for 90 days Quantity: 180 {Tablet} Refills: 3 Ordered:08-Sep-2015 Nemo Johnson Start : 26-Feb-2015 End : 08-Sep-2015 Inactive Tetracycline HCl 500 MG Oral Capsule 1 (one) Capsule daily for 0 days Quantity: 30 {Capsule} Refills: 0 Ordered:05-Feb-2018 Oscar HOPPER ATTENDANT, Anjelica LEDYmichelle HOPPER ATTENDANT, Anjelica Hutchinson Start : 02-Nov-2017 End : 05-Feb-2018 Inactive VESICARE, 10MG (Oral Tablet) 1 (one) Tablet qd for 30 days Quantity: 30 {Tablet} Refills: 0 Ordered:12-Nov-2015 Arabella Parish DO Start : 08-Sep-2015 End : 08-Oct-2015 Inactive Zofran ODT 4 MG Oral Tablet Disintegrating 1 (one) Tablet Tablet bid with antibiotic prn nausea for 0 days Quantity: 20 {Tablet} Refills: 0 Ordered:31-Jul-2017 Bina Liriano LPN Start : 17-Oct-2016 End : 31-Jul-2017 Inactive HUMIRA, 40MG/0.8ML (Subcutaneous Kit) 1 (one) Kit once monthly for 30 days Quantity: 30 Kit Refills: 0 Ordered:11-Aug-2014 Estrella Snell Start : 07-Jul-2014 End : 11-Aug-2014 Discontinued HYDROmorphone HCl 2 MG Oral Tablet 1 (one) Tablet Tablet tid for 30 days Quantity: 90 {Tablet} Refills: 0 Ordered:14-Jul-2016 Dora Taylor LPN Start : 25-Sep-2014 End : 14-Jul-2016 Discontinued Comments:pain dr MORPHINE SULFATE ER, 10MG (Oral Capsule Extended Release 24 Hour) 1 tab q hs (10 MG) End : 14-Jul-2016 Discontinued Comments:Pain management NUVIGIL, 250MG (Oral Tablet) 1 tab q am (250 MG) End : 20-Nov-2014 Discontinued Comments:neuro OPANA ER, 10MG (Oral Tablet ER 12 Hour Abuse-Deterrent) 1 tab tid (10 MG) End : 25-Sep-2014 Discontinued PredniSONE 10 MG Oral Tablet 1 (one) Tablet bid x 3 days, daily x 3 days, 1/2 x 3days for 0 days Quantity: 11 {Tablet} Refills: 0 Ordered:05-Feb-2018 Khushbu Cevallos Start : 02-Nov-2017 End : 05-Feb-2018 Discontinued Comments:with food SAVELLA TITRATION PACK, 12.5 & 25 & 50MG (Oral Miscellaneous) 1 (one) Misc take as directed for 0 days Quantity: 1 {Package} Refills: 0 Ordered:25-Sep-2014 Estrella Snell Start : 11-Aug-2014 End : 25-Sep-2014 Discontinued SYNTHROID, 137MCG (Oral Tablet) 1 tab daily and 2 tabs on sun (137 MCG) End : 11-Aug-2014 Discontinued TOPIRAMATE, 100MG (Oral Tablet) 1 tab daily (100 MG) End : 04-Jun-2015 Discontinued TROKENDI XR, 100MG (Oral Capsule Extended Release 24 Hour) 1 cap q hs (100 MG) End : 14-Jul-2016 Discontinued VITAMIN D3, 2000UNIT (Oral Capsule) 1 cap daily (2000 UNIT) End : 25-Jan-2016 Discontinued Zofran 4 MG Oral Tablet 1 (one) Tablet take 1/2 hr before antibiotic bid for 0 days Quantity: 20 {Tablet} Refills: 0 Ordered:25-Jan-2016 Dora Taylor LPN Start : 23-Nov-2015 End : 25-Jan-2016 Discontinued Allergies and Adverse Reactions Name Dates Details Aspirin (Salicylates) (Allergy) Status: Active Augmentin *PENICILLINS* (Allergy) Status: Active Azithromycin *CHEMICALS* (Allergy) Reaction: Vomiting Status: Active Betadine *ANTISEPTICS & DISINFECTANTS* Status: Active (Allergy) Biaxin *MACROLIDES* (Allergy) Reaction: Vomiting Status: Active Cipro *FLUOROQUINOLONES* (Allergy) Status: Active Clindamycin HCl *ANTI-INFECTIVE AGENTS - Status: Active MISC.* (Allergy) Darvon *ANALGESICS - OPIOID* (Allergy) Status: Active Entex LQ *COUGH/COLD/ALLERGY* (Allergy) Reaction: Vomiting Status: Active Gentamicin Sulfate *Aminoglycosides Status: Active (Allergy) Iodinated Contrast (Allergy) Status: Active Keflex *CEPHALOSPORINS* (Allergy) Status: Active Levaquin *FLUOROQUINOLONES* (Allergy) Status: Active Lomotil *ANTIDIARRHEALS* (Allergy) Status: Active Morphine Sulfate (Concentrate) Status: Active *ANALGESICS - OPIOID* (Allergy) Comments: in large doses- hallucinations and insomnia PHENobarbital *HYPNOTICS* (Allergy) Status: Active Comments: paradoxical reaction Povidine *Antiseptics & Disinfectants Status: Active (Allergy) Pyridium *GENITOURINARY AGENTS - Status: Active MISCELLANEOUS* (Allergy) Reglan *GASTROINTESTINAL AGENTS - MISC.* Status: Active (Allergy) Comments: parkisonian effect, anaphylaxis Rocephin *CEPHALOSPORINS* (Allergy) Status: Active Sulfa Drugs (Allergy) Status: Active Suprax *CEPHALOSPORINS* (Allergy) Status: Active Verapamil HCl *CALCIUM CHANNEL BLOCKERS* Status: Active (Allergy) Comments: 3rd degree heart block Versed *HYPNOTICS* (Allergy) Status: Active Xopenex *ANTIASTHMATIC AND Status: Active BRONCHODILATOR AGENTS* (Allergy) Comments: distonia Past Medical History Name Dates Details Abdominal pain (R10.9, 789.00) Status: Inactive as of 23-Jan-2017 Adrenal insufficiency (E27.40, 255.41) Status: Inactive as of 23-Jan-2017 Asthma (493.11) Status: Inactive as of 02-Nov-2017 BMI 31.0-31.9,adult (Z68.31, V85.31) Status: Inactive as of 02-Nov-2017 BMI 32.0-32.9,adult (Z68.32, V85.32) Status: Inactive as of 01-May-2017 Cough (R05, 786.2) Status: Inactive as of 02-Nov-2017 Lorenzo-Jim infection (B27.90, 075) Status: Inactive as of 23-Jan-2017 Gingivitis (K05.10, 523.10) Status: Inactive as of 23-Jan-2017 Limb pain (M79.609, 729.5) Comments: she having more workup but emg apparently neg and lumbar spine not have signifcant lesions- so seeing neuro they doing throacic mri- check doppler think fibro very hyperesthestic and i think weak becaus e sitting for years according to Status: Inactive as of 23-Jan-2017 Mitral Valve Prolapse (746.9) Status: Inactive as of 02-Nov-2017 Other urinary incontinence (N39.498, 788.39) Status: Inactive as of 23-Jan-2017 UTI symptoms (R39.9, 788.99) Status: Inactive as of 23-Jan-2017 Vocal Chord Dysfunction Status: Inactive as of 23-Jan-2017 Procedures Procedure Dates Details Appendectomy Completed Cholecystectomy Completed Hysterectomy; Total Completed Comments: adenomyosis and polycystic ovaries- 1990s Date Value Details 01-Mar-2018 Emergency Department Summary Result: Comments: See Note; NOTES: [facility] Medical Records Department [address] [place] [address] Emergency Department Summary 03/01/18 1431 MR#: [id number] Acct: [id number] Name: SADIA LONGO Rep #: [id number] : 1950 67 From: Sascha Addison MD PCP: Anjelica Salguero NP Status: REG ER - ER Visit Summary Date of Service: 03/01/18 Chief Complaint: Increased weakness and numbnes s left side History of Present Illness: The patient is a 67 F who has multiple medical problems which include GERD, type 2 diabetes, hypertension, fiber myalgia, hiatal hernia and hypothyroidism was se nt from primary care provider's office for evaluation of numbness left side and weakness left side. Onset approximately 2 weeks ago. Worse apparently today. She has had problems with speech. She does re port headache. She does admit to depression and is on antidepressants. She complains of binocular blurred vision. She denies fever, chills night sweats. She denies ear pain, ringing or ears decreased he aring. She denies rhinorrhea, congestion postnasal drainage or sore throat. She denies cardiac or respiratory symptoms. She denies abdominal pain, nausea, vomiting diarrhea. She denies urologic symptoms . She denies myalgias arthralgias or back pain. She denies polyuria, polydipsia or polyphagia. Physical Examination: Vital signs are noted and remarkable for an elevated blood pressure 150/70. Patient is not alert and has a depressed affect. Her speech is slightly slurred. Pupils equal round reactive. Extra muscles are intact. There is no nystagmus. TMs normal. Nares patent. Posterior pharynx without erythema or exudate and uvula is midline. There is no deviation tongue or protrusion. Trach is midline. There is no carotid bruit. Heart is regular without murmur, gallop or rub. S1 and S2 are normal. Lungs are clear to auscultation with good movement of air bilaterally. Abdomen is soft nontender. She has weakness on the left side and altered sensation left side with slurring of her words. She answer ed September for the month. NIH is 10. Test Results: CT reveals chronic involutional changes. EKG sinus rhythm rate of 79 and completely normal. CBC normal. Basic metabolic panel normal. INR PTT normal. Tro ponin less than 0.015. TSH is low at 0.02.. Emergency Department Course and Treatment: Patient with neurologic symptoms over the past 2 weeks. This may represent MS, atypical stroke, conversion reactio n, depression or spinal cord lesion. Stroke workup was undertaken. Since she has history of hypothyroidism will obtain TSH in the event this is hypothyroidism, atypical presentation. Treatment Plan: PC U observation status further testing and delineate the cause of her symptoms. Disposition: PCU Impression: 1. Paresthesia and weakness left side uncertain etiology 2. History of type 2 diabetes 3. His tory of hypertension 4. History of hypothyroidism with low TSH 5. History of GERD 6. History of fibromyalgia 7. History of depression This note was generated with Neuravi dictation software. It may co ntain incorrect words, spelling, and punctuation that were not noted in review of the chart prior to signing ED Disposition - Plan for ED Patient: Chief Complaint: Numb/Ting Referrals: Anjelica Salguero, [employer] ARCHITECT -C [Primary Care Provider] - What to do if you have Problems For any increased pain, shortness of breath, bleeding, nausea or vomiting, chest pain, or any unexpected problems, contact your Primary C are Provider. Call [facility] ([phone]) or report to the closest Emergency Room. Call 911 if necessary. 03/01/18 1437 <Electronically signed by Sascha Addison MD> Date _ Sascha Addison MD Cosigner Signature (If Indicated): Date CC: Anjelica Salguero NP 01-Mar-2018 Brain/Head without Contrast Result: Comments: See Note; NOTES: [facility] Imaging Services [address] [address] Brain/Head without Contrast MR#: [id number] Acct: [id number] Name: SADIA LONGO Rep #: [id number] : 1950 F 67 From: Xu Davila MD PCP: Anjelica Salguero NP Status: REG ER Study: Brain/Head without Contrast Date of Exam: 03/01/18 Exam# [id number] Ordering Dr: Sascha Addison MD STUDY : CT BRAIN WITHOUT CONTRAST REASON FOR EXAM: Female, 67 years old. Worsening left-sided numbness and tingling for 2 weeks. Slurred speech and facial droop. RADIATION DOSAGE (If Supplied By Facility): CTDIvol = ( 60.81 ) mGy, DLP = ( 998.67 ) mGycm TECHNIQUE: Transaxial CT imaging of the brain was performed without administration of intravenous contrast material. Individualized dose optimization te jayroniques were used for this CT. COMPARISON: Comparison is made with prior study dated June 09, 2014. FINDINGS: Normal soft tissue structures. Normal calvarium. There is mild cerebral atrophy with widening of the extra-axial spaces and ventricular dilatation. Normal white matter tracts of the cerebral hemispheres. Normal basal ganglia and thalami. Normal brain stem. Normal cerebellum. There is no intracranial hemorrhage. There are no findings of an acute ischemic infarction. Normal visualized paranasal sinuses. CT/Brain/Head without Contrast IMPRESSION: Chronic involutional changes of the brain. Electronically Signed: Xu Davila MD at 14:04 EST Tel [phone], Service support 1- [phone], CC: Anjelica Salguero NP; Sascha Addison MD Ed Transporter: Signed 22-Aug-2017 SCREENING MAMM (CAD), BILAT Result: Comments: See Note; NOTES: [facility] Imaging Services [address] [place] [address] SCREENING MAMM (CAD), BILAT MR#: [id number] Acct: [id number] Name: SADIA LONGO Rep #: [id number] : 1950 F 66 From: Xu Davila MD PCP: Anjelica Salguero NP Status: REG CLI Study: SCREENING MAMM (CAD), BILAT Date of Exam: 08/22/17 Exam# [id number] Ordering Dr: Anjelica Salguero MAMMO GRAPHY - BILATERAL SCREENING REASON FOR EXAM: Female, 66 years old. Routine annual screening examination. PERTINENT HISTORY: Aunt with breast cancer. History of prior bilateral breast implants with re moval. TECHNIQUE: Digital bilateral breast shukri (3D mammographic acquisition) in the CC and MLO projections. 2-D mediolateral oblique (MLO) and craniocaudad (CC) views of both breasts were obtained. CA D: Full Field Digital Mammography with Computer Added Detection was performed. COMPARISON: Comparison is made with prior study dated July 23, 2015. FINDINGS: Breast Composition: There are scattered areas of fibroglandular density. There are no dominant masses or suspicious calcifications. Stable small benign appearing bilateral axillary lymph nodes. No other sig nificant abnormalities are identified. There has been no significant change since the prior study. BI/SCREENING MAMM (CAD), BILAT IMPRESSION: Sta ble bilateral screening mammogram. Yearly follow-up mammogram recommended. (A) ASSESSMENT CATEGORY: BIRADS Category 2: Benign. A letter regarding these results will be sent to the patient by the facility within 30 days. Approximately 10% of breast cancers are not detected by mammography. A normal mammogram should not delay biopsy of a clinically suspicious abnorm ality. [id number] Electronically Signed: Xu Davila MD at 9:48 EDT Tel [phone], Service support , CC: Anjelica Salguero NP Ed Transporter: Signed 15-Jun-2017 Echocardiogram Complete Result: Comments: See Note; NOTES: [facility] Cardiovascular Services [address] [address] Echo Complete 06/15/17 0933 MR#: [id number] Acct: [id number] Name: SADIA LONGO Rep #: [id number] : 1950 66 From: Yaniv Liang MD Attending Dr: Yaniv Liang MD Status: REG CLI Ordering Dr: Yaniv Liang MD Date: 06/15/17 [facility] Sex: F C Admitted: Reason Fo r Study: CHEST PAIN Procedure This was a 2D Doppler, Color Flow transthoracic echocardiogram. The exam was of fair technical quality due to diminished acoustic windows. The study was technically diffic ult. Exam performed in department. Left Ventricle Normal LV size. Left ventricular systolic function is normal. The estimated ejection fraction is 60 %. Transmitral doppler flow suggestive of impaired relaxation of left ventricle. No regional wall motion abnormalities noted. Right Ventricle Normal RV size. Normal systolic function. Atria Normal left atrium. Normal right atrium. No doppler evidence for ASD. Bubble contrast study negative for right to left interatrial shunt. Mitral Valve There is no mitral annular calcification. Normal mitral valve. Mild (1+) mitral valve insufficiency. Tricuspid Valve Normal tricuspid valve. Trivial tricuspid valve insufficiency. Unable to estimate RV systolic pressure/pulmonary artery pressure due to technically difficult study. Aortic Valve Trisinus/trileaf let aortic valve. Normal aortic valve. Pulmonic Valve The pulmonic valve is not well visualized. Great Vessels Normal sized aortic root. Pericardium/Pleural No pericardial effusion. MMode/2D Measurem ents AND Calculations LVIDd: 3.9 cm IVSd: 0.96 cm Ao root diam: 2.9 cm LVIDs: 2.3 cm LVPWd: 1.1 cm RVDd: 2.6 cm FS: 40.1 % _ LAV(MOD-bp): 31.3 ml EDV(MOD-sp4): 41.5 ml EDV(MOD-sp2): 42.8 ml LAV(MOD-bp) Indexed: 17.3 ml/m2 ESV(MOD-sp4): 16.2 ml EF(MOD-sp2): 62.1 % LAV(MOD-sp2): 37.6 ml EF(MOD-sp4): 60.9 % LAV(MOD-sp4): 25.1 ml SV(MOD-sp4): 25.3 ml SV(MOD-sp2): 26.6 ml LA A4 area: 11.9 cm2 RA A4 area: 11.2 cm2 Doppler Measurements AND Calculations MV E max diana: 60.2 cm/sec Ao V2 max: 97.0 cm/sec LV V1 max: 95.7 cm/sec MV A max diana: 67.7 cm/sec Ao max P.8 mmHg LV V1 max P.7 mmHg MV E/A: 0.89 PA V2 max: 112.5 cm/sec Interpretation Summary The study was technically diffi cult. Left ventricular systolic function is normal. The estimated ejection fraction is 60 %. Mild (1+) mitral valve insufficiency. Trivial tricuspid valve insufficiency. Unable to estimate RV systolic pressure/pulmonary artery pressure due to technically difficult study. Transmitral doppler flow suggestive of impaired relaxation of left ventricle Bubble contrast study negative for right to left inter atrial shunt. Ordering Physician: Yaniv Liang Referring Physician: ANJELICA SALGUERO Performed By: Bryn Sky 06/15/171642 Date Yaniv Liang MD CC: Anjelica Salguero NP; Yaniv mera MD Date Dictated: 06/15/1733 Date Transcribed: 06/15/171642 Ed Transporter: Signed 15-Jun-2017 Stress Report Result: Comments: See Note; NOTES: [facility] Cardiovascular Services [address] [place] [address] MR#: [id number] Acct: [id number] Name: SADIA LONGO Rep #: [id number] : [birth year] 66 From: Yaniv Liang MD Primary Care: Anjelica Salguero NP Status: REG CLI Ordering Dr: Sex: F C Stress Test Report Date: 06/15/2017 Procedure: Pharmacologic stress nuclear imaging study Indic ations: Chest pain Consent: Per the patient Procedure: The patient underwent pharmacologic (Regadenoson) evaluation with a peak heart rate of 93 beats per minute (59% predicted maximal heart rate) an d a peak blood pressure of 128/78 mmHg. The baseline ECG demonstrated normal sinus rhythm with nonspecific ST/T-wave abnormality. The peak pharmacologic ECG demonstrated with no obvious ECG changes. [ There were no cardiac dysrhythmias pretest, during pharmacologic infusion, or recovery]. [There was no complaint of chest discomfort during pharmacologic infusion or recovery]. The examination was dis continued secondary to completion of protocol. Impression: 1. Pharmacologic (Regadenoson) evaluation 2. Peak pharmacologic ECG with continued nonspecific ST/T-wave abnormality with no obvious ECG billingsley ges. 3. Cardiac dysrhythmias pretest, during pharmacologic infusion, or recovery 4. Nuclear images pending Myocardial perfusion imaging study: Technique: The patient was injected with 1.4 millicuries of technetium 99m Cardiolite and subsequently rest SPECT Cardiolite nuclear imaging was obtained in the horizontal long, vertical long, and short axis views. The patient underwent pharmacologic (Regade noson) evaluation with a peak heart rate of 93 beats per minute (59% predicted maximal heart rate) and a peak blood pressure of 128/78 mmHg. the patient was injected with 36 millicuries of technetium 99 m Cardiolite and subsequently stress SPECT Cardiolite nuclear imaging was obtained in the horizontal long, vertical long, and short axis views. A gated Cardiolite study at peak stress was obtained. Int erpretation: Rest and stress SPECT Cardiolite nuclear imaging status post realignment, normalization, and attenuation correction demonstrate relative uniform tracer uptake and myocardial perfusion appe aring within normal limits. [There is end systolic thickening and brightening]. [The gated Cardiolite study demonstrates myocardial thickening and inward wall motion]. The reported LVEF is 92%. Impress ion: 1. Rest and stress SPECT currently nuclear imaging demonstrating relative uniform tracer uptake and myocardial perfusion appearing within normal limits. 2. The gated Cardiolite study demonstrates an LVEF of 92%. This note was generated with MegaHootation software. It may contain incorrect words, spelling, and punctuation that were not noted in checking the note before signing. [id number] <Electronically signed by Yaniv Liang MD> Date Yaniv Liang MD CC: Anjelica Salguero NP; Yaniv Liang MD Date Dictated: 06/15/17 1014 Date Transcribed: 06/15/171013 Ed Transporter: PM Signed 13-Jun-2017 Lumbar Spine 2 or 3 Views Result: Comments: See Note; NOTES: [facility] Imaging Services [address] [place] [address] Lumbar Spine 2 or 3 Views MR#: [id number] Acct: [id number] Name: SADIA LONGO Rep #: : 1950 F 66 From: Robert Saba DO PCP: Anjelica Salguero NP Status: REG CLI Study: Lumbar Spine 2 or 3 Views Date of Exam: 06/13/17 Exam# [id number] Ordering Dr: Yung Alvarez MD STUDY: X-RAY - LUMBAR SPINE REASON FOR EXAM: Female, 66 years old. Trauma, back pain TECHNIQUE: 3 view(s) of the lumbar spine were obtained. COMPARISON: 03/02/2016 FINDI NGS: Normal lumbar lordosis. There is no substantial scoliosis. There is a normal alignment of the vertebrae. Normal vertebral bodies and endplates. There is multi-level degenerative disc disease with multi-level disc space narrowing. No fracture is seen. There is atherosclerotic calcification of the abdominal aorta without a demonstrated aneurysm. Cholecystectomy clips are seen in the right upper q uadrant of the abdomen. RAD/Lumbar Spine 2 or 3 Views IMPRESSION: Mild degenerative changes. No acute bony abnormality. Electronically Signed: Satish Saba DO at 15:05 EST Tel , Service support , CC: Anjelica Salguero NP; Yung Alvarez MD Ed Transporter: Signed 31-May-2017 Cardiology Visit Report Result: Comments: See Note; NOTES: [facility] [address] [place] [address] OFFICE VISIT Date of Service: 05/31/17 MR#: [id number] Acct: [id number] Name: SADIA LONGO Rep #: [id number] : 1950 Provider: Yaniv Liang MD Age/Sex: 66/F [place] [facility] Status: Signed HPI HPI Details: SADIA LONGO, is a 66 F who presents to the office today for for outpatien t cardiovascular consultation based on concerns of shortness of breath/dyspnea, chest discomfort, and fatigue superimposed upon a reported history of underlying CAD. She states she has previously been e valuated by Dr. Murray Patterson of cardiology in the [place], [place] area. She notes in the past she has undergone Holter monitor, she believes an echocardiogram, exercise tolerance test, and diagnostic cardiac catheterization. To the best of her knowledge she was told that her cardiac catheterization revealed a 30% lesion. Her aforementioned studies have been requested. Thus far her Holter monitor has been reported. This was performed in December 2010. At that time it was reported that she had sinus rhythm with 1 PAC and 4 PVCs during a 48 hour timeframe. There were no other dysrhythmia s or conduction system issues reported. It also appears she had a pharmacologic stress nuclear imaging study performed in June 2014 via the [facility] system. According to the report s available for review the final conclusion was normal. The echocardiogram is unavailable for review. The cardiac catheterization is unavailable for review. Based on her recent tima rns she had an ECG in her PCPs office. The ECG appeared to demonstrate underlying sinus rhythm. There was possible left atrial enlargement. Her ECG was repeated today. It was noted that she had sinus rh ythm with no acute ECG changes. She states that her symptoms can be random. She can feel short of breath and dyspneic. This may be more so with activity. She does feel tired and fatigued. She also note s that she can feel discomfort in her chest which appears to radiate towards her right shoulder and then potentially her right posterior thorax. She has not complained of associated nausea, emesis, or d iaphoresis. There has been no orthopnea, PND, near-syncope, or syncope. She states she feels her lower extremities are somewhat more edematous than usual. Her daughter is with her today and believes he appears somewhat more edematous. On examination she appears to have trace bilateral lower extremity edema. She does have a variety of non-cardiovascular issues. Based upon notes from [facility] from 06/16/2012 it appears at that time she had been evaluated during multiple hospitalizations including for psychiatric related issues. She apparently also has issues with fibromyalgia. It appears she underwent recent laboratory studies in March 2017 by her PCP. Her cholesterol was 200 with an LDL of 101 and HDL 47 and a triglyceride level 258. She admits that she does not take her fe nofibrate on a daily basis. Intake Vital Signs05/31/17 Height 5 ft 2 in 05/31/17 Weight: 176 lb 5 oz 05/31/17 Body Mass Index (BMI) 32.2 Intake Visit Reasons: CP/SOB/FATIGUE/REF. CIESA Allergies amoxicillin trihydrate [From Augmentin] Allergy (Verified 10/30/13 23:22) Shortness of breath aspirin Allergy (Verified 10/30/13 23:22) Anaphylaxis atropine sulfate [From Lomotil] Allergy (Verified 10/21 23:22) Itching cefixime [From Suprax] Allergy (Verified 10/30/13 23:22) Itching ceftriaxone sodium [From Rocephin] Allergy (Verified 10/30/13 23:22) Itching cephalexin monohydrate [From Keflex] All ergy (Verified 10/30/13 23:22) Itching ciprofloxacin [From Cipro] Allergy (Verified 10/30/13 23:22) Shortness of breath ciprofloxacin HCl [From Cipro] Allergy (Verified 10/30/13 23:22) Shortness of lianet th clindamycin Allergy (Verified 10/30/13 23:22) Itching diphenoxylate HCl [From Lomotil] Allergy (Verified 10/30/13 23:22) Itching gentamicin [Gentamicin] Allergy (Verified 10/30/13 23:22) Itching hydr omorphone HCl [From Exalgo ER] Allergy (Verified 10/30/13 23:22) Itching metoclopramide HCl [From Reglan] Allergy (Verified 10/30/13 23:22) Anaphylaxis Penicillins [PCN] Allergy (Verified 10/30/13 23:22 ) Itching phenazopyridine HCl [From Pyridium] Allergy (Verified 10/30/13 23:22) Itching potassium clavulanate [From Augmentin] Allergy (Verified 10/30/13 23:22) Shortness of breath povidone-iodine [From Betadine] Allergy (Verified 10/30/13 23:22) Itching propoxyphene HCl [From Darvon] Allergy (Verified 10/30/13 23:22) Itching red dye Allergy (Verified 10/30/13 23:22) Itching soap [From Betadine] Aller gy (Verified 10/30/13 23:22) Itching Sulfa (Sulfonamide Antibiotics) Allergy (Verified 10/30/13 23:22) Itching adhesive tape Adverse Reaction (Severe, Verified 05/31/17 14:24) skin peels clarithromycin [From Biaxin] Adverse Reaction (Severe, Verified 10/30/13 23:22) Vomiting ketorolac tromethamine [From Toradol] Adverse Reaction (Severe, Verified 10/30/13 23:22) Vomiting verapamil [Verapamil] Adverse Reaction (Severe, Verified 10/30/13 23:22) Other azithromycin Adverse Reaction (Intermediate, Verified 05/30/17 17:58) vomiting iodine Adverse Reaction (Unknown, Verified 05/30/17 17:58) Unknown levoflo xacin [From Levaquin] Adverse Reaction (Unknown, Verified 05/30/17 17:58) Unknown phenazopyridine [From Pyridium] Adverse Reaction (Unknown, Verified 05/30/17 17:58) Unknown carbamazepine [From Tegretol ] Adverse Reaction (Verified 10/30/13 23:22) Unknown duloxetine HCl [From Cymbalta] Adverse Reaction (Verified 10/30/13 23:22) Unknown gabapentin [From Neurontin] Adverse Reaction (Verified 10/30/13 23: 22) Other guaifenesin [From Entex T] Adverse Reaction (Verified 10/30/13 23:22) Vomiting midazolam HCl [From Versed] Adverse Reaction (Verified 10/30/13 23:22) Other morphine Adverse Reaction (Verified 10/30/13 23:22) Other phenobarbital Adverse Reaction (Verified 10/30/13 23:22) Other pseudoephedrine HCl [From Entex T] Adverse Reaction (Verified 10/30/13 23:22) Vomiting quetiapine fumarate [From Sero quel] Adverse Reaction (Verified 10/30/13 23:22) Other C-CLOR Allergy (Uncoded 10/30/13 23:22) Shortness of breath CAT SCAN DYE Allergy (Uncoded 10/30/13 23:22) Anaphylaxis CIPRO Allergy (Uncoded 23:22) Itching STERIODS Allergy (Uncoded 10/30/13 23:22) Other TAPE Adverse Reaction (Uncoded 10/30/13 23:22) Other XOPONEX Adverse Reaction (Uncoded 10/30/13 23:22) Other Medications Clonazepam [ Klonopin] 2 mg QHS 10/30/13 [History Confirmed 05/31/17] B-complex with vitamin C capsule 1 cap PO QDAY 05/30/17 [History Confirmed 05/31/17] cholecalciferol (vitamin D3) 2,000 unit capsule 2,000 unit P O QDAY cap 05/30/17 [History Confirmed 05/31/17] cyclobenzaprine 10 mg tablet 10 mg PO HS tab 05/30/17 [History Confirmed 05/31/17] denosumab 60 mg/mL subcutaneous syringe 60 mg SC [id number] 05/30/17 [Hi story Confirmed 05/31/17] epinephrine 0.3 mg/0.3 mL injection, auto-injector 0.5 mg IM Q10-15M PRN 05/30/17 [History Confirmed 05/31/17] fenofibrate micronized 67 mg capsule 67 mg PO QDAY 05/30/17 [Hist ory Confirmed 05/31/17] levothyroxine 100 mcg capsule 200 mcg PO cap 05/30/17 [History Confirmed 05/31/17] metoprolol succinate ER 25 mg tablet,extended release 24 hr 25 mg PO QDAY tab 05/30/17 [History Confirmed 05/31/17] morphine ER 30 mg-naltrexone 1.2 mg capsule, extend release, oral only 1 cap PO QDAY 05/30/17 [History Confirmed 05/31/17] omeprazole 40 mg capsule,delayed release 40 mg PO QDAY 11/07 [History Confirmed 05/31/17] trazodone 300 mg tablet 300 mg PO QHS tab 05/30/17 [History Confirmed 05/31/17] niacin ER 125 mg capsule,extended release 125 mg PO QDAY 05/31/17 [History Confirmed ] [facility] Medical History Palpitations (Acute) SOB (shortness of breath) (Acute) Mitral valve prolapse (Acute) Hypertension (Chronic) Fatigue (Acut e) Chest pain (Acute) Chronic pain (Acute) Fibromyalgia (Acute) GERD (gastroesophageal reflux disease) (Acute) Hiatal hernia (Acute) Hypothyroidism (Acute) Osteopenia (Acute) Osteoporosis (Acute) Psoria tic arthritis (Acute) Type 2 diabetes mellitus (Acute) Chronic pain (Inactive) Head ache (Inactive) Hypothyroidism (Inactive) Psoriatic arthritis (Inactive) Surgical History History of cholecystectomy (Resolved) History of total hysterectomy (Resolved) Hx of appendectomy (Resolved) Family History Fathe r CAD (coronary artery disease) Mother CVA (cerebral vascular accident) Grandfather Heart disease Grandmother Heart disease Uncle Sudden cardiac , Onset Age: 30 Social History S moking Status: Former smoker alcohol intake: never substance use type: does not use ROS Const Const: Positive for fatigue (increased) and weakness (increased); negative for weight gain, weight lo ss, frequent falls or excessive sweating Eyes Eyes: Negative for change in vision, blurry vision or transient loss of vision ENT ENT: Negative for dizziness, Positive for balance problems (ambulates wit h a cane) Cardio Chest Pain: Yes Frequency: weekly Character: other (pressure) Location: mid sternal, left chest Exacerbation: activity, rest Relieving: other (will rub putting counter pressure on area) Palpitations: Positive for No Edema: None Muscle aches with walking: None Additional Details: Patient reports experiencing CP describing as a pressure located Lt side/midsternal chest area while at res t and with activity. Patient reports that pain can radiate to Rt shoulder, becomes lightheaded and SOB. Resp Respiratory: Positive for SOB with activity (increased); negative for SOB at rest GI GI: Nega tive vomiting or vomiting blood/hematemesis : Negative for hematuria Musc Musc: Positive for muscle aches/ myalgia (HX fibromyalgia), joint pain (psoriatic arthritis) and balance problems (ambulate s with a cane); negative for muscle weakness Skin Skin: Negative non-healing lesions or rash Neuro Neuro: Positive for weakness (increased), Negative for blurry vision, Negative for dizziness, Negative for lightheadedness, Negative for frequent falls, Negative for orthostatic symptoms Rishabh Hematologic/Lymphatic: Negative for easy bleeding Endo Endo: Positive for fatigue (increased); negative for exces sive sweating Psych Psych: Negative for anxiety or depression Allergy Allergy/Immunology: Negative for hives, Negative for rash Cardiology Exam Const Appearance: cooperative, healthy appearing, comfor table, no acute distress, well developed, well groomed and other (examined in the wheelchair) Nutritional Appearance: average body habitus Orientation: alert, awake and oriented x3 Head Head: normal to inspection, normocephalic and atraumatic Ears: hearing grossly normal bilaterally Nose: external nose normal Face and Sinus: face symmetric Mouth: oral mucosae normal Teeth and gingiva: fair dentition E yes General: appearance normal, both eyes and all related structures Eyelids: eyelids normal Conjunctivae: conjunctivae normal Pupils: PERRL EOM: EOM intact bilaterally Neck Neck: normal visual inspecti on and full ROM Carotids: normal carotid upstroke Chest Chest inspection: normal inspection of the chest and symmetric chest movement Auscultation: Bilateral: Clear to Auscultation Cardio Palpation: nor mal PMI Rate: regular rate Rhythm: regular rhythm Heart sounds: S1 normal and S2 normal GI GI: normal to inspection, soft, no hepatosplenomegaly and bowel sounds present Neuro General: alert, awake and oriented x3 Skin Skin: no rashes or lesions noted Extremities Pulses: Normal: Right Radial Pulse, Left Radial Pulse Lower Extremity Edema: Trace: Bilateral Musculoskel Musculoskeletal: joint tenderness Psych Psychological: flat affect Assessment AND Plan 1. Chest pain, unspecified type R07.9 Plan At the moment her chest discomfort appears to be somewhat atypical. However she states she does have a h istory of previous CAD based upon her remote diagnostic cardiac catheterization performed in or around 1994. At the present time based upon her concern she will have a follow-up pharmacologic stress nu clear imaging study performed. If there are concerns she may need to proceed with repeat diagnostic cardiac catheterization. If not she may need to continue noncardiac evaluation of her discomfort. Orde rs Orders: 2. Shortness of breath R06.02 Plan Again she notes shortness of breath and dyspnea. She will have further evaluation as noted above. She will also have further evaluation with a transthoraci c echocardiogram to reassess her left ventricular wall motion and systolic function. Orders Orders: 3. Fatigue, unspecified type R53.83 Plan She does have tiredness and fatigue. She has been undergoing evaluation care by her primary care physician for this. She will also undergo further cardiac evaluation as noted above. Orders Orders: 4. Palpitations R00.2 Plan She does have a history of palpitatio ns. It is noted in the past that she did have evidence of PACs and PVCs. They appeared to be rare at that time. There is been no other dysrhythmias reported. She has been on a beta-nathen. She believes it is helped. This will be continued. Orders Orders: 5. Mitral valve prolapse I34.1 Plan According to her PCPs medical records there is a diagnosis of mitral valve prolapse. There is no echocardiogram to review at this time. She will be having a future echocardiogram and thus her mitral valve anatomy and physiology can be reviewed. Orders Orders: 6. Hypertension, unspecified type I10 Plan She state s the beta-nathen has been beneficial for her hypertension. Her blood pressure appears to be reasonably well controlled at the moment. She will continue her current medical management and follow-up. Or ders Orders: Plan Detail Additional Comments Overall and she will proceed with her echocardiogram and the pharmacologic stress nuclear imaging study. She will continue her current medical therapy. She will be scheduled for future outpatient cardiovascular follow-up. If her studies were unremarkable she may need no further cardiac evaluation or care and she will continue to follow with her primary car e physician. If her studies are concerning that she will need further cardiac evaluation as deemed appropriate at the time. The above was discussed with patient and her daughter. They are agreeable to this approach. Follow Up 6 Weeks (PA/[employer] ARCHITECT) Coding Level of Care Code Off vis,new,level 4 Diagnoses Chest pain, unspecified type R07.9 Chest pain type: unspecified Shortness of breath R06.02 Fatigue, un specified type R53.83 Fatigue type: unspecified Palpitations R00.2 Mitral valve prolapse I34.1 Hypertension, unspecified type I10 Hypertension type: unspecified Coding Level of Care Code Off may ramos l evel 4 Diagnoses Chest pain, unspecified type R07.9 Chest pain type: unspecified Shortness of breath R06.02 Fatigue, unspecified type R53.83 Fatigue type: unspecified Palpitations R00.2 Mitral valve pr olapse I34.1 Hypertension, unspecified type I10 Hypertension type: unspecified 05/31/17 1609 <Electronically signed by Yaniv Liang MD> Date Yaniv Liang MD Cosigner Signature: Date (if applicable) CC: Anjelica Salguero NP 31-May-2017 12 Lead EKG performed [place] [facility] Result: Comments: See Note; NOTES: [facility] [address] [place] [address] 12 Lead EKG performed by [facility] 05/31/17 1413 MR#: [id number] Acct: [id number] Name: SADIA LONGO Rep #: [id number] : 1950 66 From: Yaniv Liang MD Attending Dr: Yaniv Liang MD Status: [facility] Ordering Dr: Yaniv Liang MD Date: 05/31/17 Location: [facility] Sex: F C Admitted: [facility] Lead EKG performed [place] [facility] ECG Report Interpretation Sinus Rhythm Poor R wave progressionElectronically signed on 05/31/2017 at 16:10 by Esvin Liang 05/31/17 1612 Date Yaniv Liang MD CC: Anjelica Oscar STANLEY Date Dictated: 05/31/171412 Date Transcribed: 05/31/171412 Ed Transporter: PM Signed 29-Mar-2017 Emergency Department Summary Result: Comments: See Note; NOTES: [facility] Medical Records Department [address] [place] [address] Emergency Department Summary MR#: [id number] Acct: [id number] Name: RAMAKRISHNA LONGO Rep #: [id number] : 1950 66 From: Liam Whalen MD PCP: Anjelica Salguero NP Status: REG ER DATE OF SERVICE: 03/23/2017 HISTORY OF PRESENT ILLNESS: This patient who sees Anjelica Salguero reports eun t she forgot her cane today and did more than she should have, she states that she has had left ankle and foot pain since then. She describes it as a sharp, throbbing pain that is worsened by standing. It is relieved by rest, ice and elevation. She denies any paresthesias. PHYSICAL EXAMINATION: GENERAL: Reveals alert woman in no acute distress. VITAL SIGNS: Stable. EXTREMITIES: Significant physical e xam findings include the exam of her left ankle shows her to have mild tenderness to palpation over the lateral malleolus. She has moderate diffuse tenderness to palpation over the distal portion of her third, fourth and fifth metatarsals. There is no soft tissue swelling. She has 2+ dorsalis pedis pulse. Normal sensation to light touch. The remainder of physical exam is unremarkable. Please T-sheet f or details. TEST RESULTS: The patient had x-ray of her left foot that shows hardware to be intact without fracture. X-ray of her left ankle that is negative. EMERGENCY DEPARTMENT COURSE: The patient w as treated with [place], placed in a walking boot. TREATMENT PLAN: The patient will be discharged with [facility] agent in 1 week if not improving. DISPOSITION: Home, improved, stable condition. IMPRESSION: Left foot sprain. MD Dennis Medina C: Anjelica Salguero T: NTS JOB: [id number] 03/29/17 0650 <Electronically signed by Liam Whalen MD> Date _ Liam Whalen MD Cosigner Signature (If Indicated): Date CC: Anjelica Salguero [employer]CHITECT Date Dictated: 03/23/172102 D ate Transcribed: 03/23/172102 Ed Transporter: Signed 13-Feb-2017 Dexa Bone Density Study (HP) Result: Comments: See Note; NOTES: [facility] Imaging Services [address] [place] [address] Dexa Bone Density Study (HP) MR#: [id number] Acct: [id number] Name: SADIA LONGO Rep #: [id number] : 1950 F 66 From: Xu Davila MD PCP: Anjelica Salguero Status: REG CLI Study: Dexa Bone Density Study (HP) Date of Exam: 02/13/17 Exam# [id number] Ordering Dr: Anjelica Salguero STUDY: DUAL ENERGY X-RAY ABSORPTIOMETRY / DXA REASON FOR EXAM: Female, 66 years old. The patient is postmenopausal. Loss of height. TECHNIQUE: Bone Mineral Density (BMD) measurements of lumbar spine and cody ateral hips were obtained. COMPARISON: None. FINDINGS: Lumbar Spine (L1-L4): g/cm2 (1.032) / T-score (-1.2) / Z-score (0.3) Findings are suggestive of osteopenia w ith a moderate fracture risk. Left Femur Total: g/cm2 (0.788) / T-score (-1.7) / Z-score (-0.6) Left Femoral Neck: g/cm2 (0.744) / T-score (-2.1) / Z-score (- 0.7) Right Femur Total: g/cm2 (0.859) / T-s core (-1.2) / Z-score (0.0) Right Femoral Neck: g/cm2 (0.821) / T-score (-1.6) / Z-score (-0.1) HPBD/Dexa Bone Density Study (HP) IMPRESSION: The patient is considered osteopenic as outlined below according to World Jesse Organization (WHO) criteria with a moderate fracture risk. Reference Information: The T -score is the number of standard deviations above or below the standard which is normal for young adults at their peak bone mineral density. The World Health Organization (WHO) interprets the T-scores a s follows: Above -1 Normal bone density Between -1 and -2.5 Osteopenia Equal to / or below -2.5 Osteoporosis As a practical clinical guideline, osteopenia may be graded as follows: Mild -1 through -1. 5 Moderate -1.6 through -2.0 Severe -2.1 through -2.4 The Z-score is the number of standard deviations above or below age-matched controls. A Z-score of less than -1.5 would be considered abnormal. Re ferences: 1. NIH Osteoporosis and Related Bone Diseases http://www.osteo.org 2. International Society for Clinical Densitometry http://www.iscd.org 3. National Osteoporosis Foundation http://www.nof.org Electronically Signed: Xu Davila MD at 14:52 EDT Tel [phone], Service support , CC: Anjelica Salguero Ed Transporter: Signed 26-Jan-2017 Spine Lumbar (Routine) Result: Comments: See Note; NOTES: [facility] Imaging Services [facility] [place] [address] Spine Lumbar (Routine) MR#: [id number] Acct: [id number] Name: DONTASADIA C Rep #: [id number] : 1950 F 66 From: Mason Gilliam MD PCP: Anjelica Salguero Status: REG CLI Study: Spine Lumbar (Routine) Date of Exam: 01/26/17 Exam# [id number] Ordering Dr: Yung Alvarez MD STUDY: MRI LUM BAR SPINE WITHOUT CONTRAST REASON FOR EXAM: Female, 66 years old. Back and left lateral leg pain for 5 weeks TECHNIQUE: Standardized fat and water weighted pulse sequences were obtained in the sagitta l and axial planes. COMPARISON: 06/05/2014 FINDINGS: T12-L1: Normal endplates. Normal disc height, hydration and morphology. Normal bilateral facet joints. Normal c entral canal and bilateral lateral recesses. Normal bilateral intervertebral neural foramina. Normal lumbar lordosis. There is no substantial scoliosis. Normal conus medullaris that terminates at the L 1-2 level. L1-2: Normal endplates. Normal disc height, hydration and morphology. Normal bilateral facet joints. Normal central canal and bilateral lateral recesses. Normal bilateral intervertebral neur al foramina. L2-3: The disc is normal. Mild bilateral facet hypertrophy without compressive sequelae. L3-4: Disc desiccation. Mild bilateral facet hypertrophy. No compressive sequelae. L4-5: Disc pham iccation. Mild circumferential bulging annulus with superimposed central annular fissure and bilateral facet hypertrophy. Mild central canal and bilateral foraminal stenoses. L5-S1: Disc space narrowin g and desiccation. Minimal disc osteophyte complex with bilateral facet hypertrophy. Mild right lateral recess stenosis. Normal visualized sacral ala. Normal visualized paraspinous soft tissue structu res. MRI/Spine Lumbar (Routine) IMPRESSION: Degenerative changes from L2-3 through L5-S1 as described. No evidence of nerve root impingement. Nor mal alignment. Electronically Signed: Mason Gilliam MD at 0:32 EDT Tel , Service support , CC: Anjelica Alvarez MD Ed Transporter: Signed 02-Mar-2016 Cerv Spine 2 or 3 Views Result: Comments: See Note; NOTES: [facility] Imaging Services [address] [place] [address] Verdana 4d Cerv Spine 2 or 3 Views MR#: [id number] Acct: [id number] Name: SADIA LONGO Rep #: [id number] : 1950 F 65 From: Marshall Landaverde DO PCP: Anjelica Salguero Status: REG CLI Study: Cerv Spine 2 or 3 Views Date of Exam: 03/02/16 Exam# [id number] Ordering Dr: Yung Alvarez MD STUDY : X-RAY - CERVICAL SPINE REASON FOR EXAM: Female, 65 years old. Pain. TECHNIQUE: 4 view(s) of the cervical spine were obtained. COMPARISON: None FINDINGS: There a re degenerative changes of the anterior atlantoaxial articulation. Normal odontoid process. Normal cervical lordosis. 3 There is multi-level degenerative disc disease with multilevel disc space narrowi ng. There is no evidence of acute fracture or loss of vertebral axial height. There is maintenance of normal alignment. The soft tissue structures are unremarkable. RAD/Cerv Spine 2 or 3 Views IMPRESSION: Degenerative changes of the cervical spine. Electronically Signed: Marshall Landaverde DO at 23:01 EST Tel [phone], Service support [phone], CC: Anjelica Alvarez MD Ed Transporter: Signed 02-Mar-2016 Lumbar Spine 2 or 3 Views Result: Comments: See Note; NOTES: [facility] Imaging Services [address] [place] [address] Verdana 4d Lumbar Spine 2 or 3 Views MR#: [id number] Acct: [id number] Name: SADIA LONGO Rep #: [id number] : 1950 F 65 From: Marshall Landaverde DO PCP: Anjelica Salguero Status: REG CLI Study: Lumbar Spine 2 or 3 Views Date of Exam: 03/02/16 Exam# [id number] Ordering Dr: Yung Alvarez MD S TUDY: X-RAY - LUMBAR SPINE REASON FOR EXAM: Female, 65 years old. Pain. TECHNIQUE: 3 view(s) of the lumbar spine were obtained. COMPARISON: Lumbar spine , June 05, 2014. FINDINGS: Normal lumbar lordosis. There is no substantial scoliosis. There is a normal alignment of the vertebrae. Normal vertebral bodies and endplates. Disc space narrowing at L5-S1. Ther e is no evidence of acute fracture or loss of vertebral axial height. There is diffuse degenerative facet disease The soft tissue structures are unremarkable. ORD ER #: [id number] RAD/Lumbar Spine 2 or 3 Views IMPRESSION: Stable degenerative changes of the lumbar spine. Electronically Signed: Marshall Landaverde DO at 23:10 EST Tel [phone], Service support [phone], CC: Anjelica Salguero; Yung Alvarez MD Ed Transporter: Signed 16-Nov-2015 Liver Result: Comments: See Note; NOTES: [facility] Imaging Services [address] [place] [address] Verdana 4d Liver MR#: [id number] Acct: [id number] Name: SADIA LONGO Rep # : [id number] : 1950 F 64 From: Apryl Melendez MD PCP: Arabella Parish DO Status: REG CLI Study: Liver Date of Exam: 11/16/15 Exam# [id number] Ordering Dr: Anjelica Salguero STUDY: ABDOMINAL ULTRASOU ND - RIGHT UPPER QUADRANT REASON FOR VISIT: Female, 64 years old. ABD PAINS/P CHOLECYSTECTOMY TECHNIQUE: Ultrasound evaluation of the right upper quadrant was performed with real-time and s tatic dudley-scale imaging. TECHNICAL QUALITY: Adequate. COMPARISON: None. FINDINGS: Liver: The liver measures 16.3 cm. There is increased echogenicity consis tent with fatty infiltration. The bile ducts are within normal limits. There is hepatic color flow. The direction of portal flow is hepatopetal. There is no demonstrated mass lesion. Gallbladder: Th e patient is status post cholecystectomy. Common Bile Duct (C.B.D.): The common bile duct measures 8.9 mm. Pancreas: Normal size of the head, body of the pancreas. There is normal echogenicity of t he pancreas. There is no demonstrated pancreatic mass or cyst. Right Kidney: Normal size of the right kidney. The right kidney measures 9.5x5.7x4 cm. Normal renal cortex. The right cortex measures 1 .5 cm. There is no demonstrated renal mass or cyst. There is no right hydronephrosis. CC: Anjelica Salguero; Arabella Parish DO Ed Transporter: Signed 16-Nov-2015 Liver Result: Comments: See Note; NOTES: [facility] Imaging Services [address] [place] [address] Verdana 4d Liver MR#: [id number] Acct: [id number] Name: DONTASADIA C Rep # : [id number] : 1950 F 64 From: Apryl Melendez MD PCP: Arabella Parish DO Status: REG CLI Study: Liver Date of Exam: 11/16/15 Exam# [id number] Ordering Dr: Anjelica Salguero STUDY: ABDOMINAL ULTRASOU ND - RIGHT UPPER QUADRANT REASON FOR VISIT: Female, 64 years old. ABD PAINS/P CHOLECYSTECTOMY TECHNIQUE: Ultrasound evaluation of the right upper quadrant was performed with real-time and s tatic dudley-scale imaging. TECHNICAL QUALITY: Adequate. COMPARISON: None. FINDINGS: Liver: The liver measures 16.3 cm. There is increased echogenicity consis tent with fatty infiltration. The bile ducts are within normal limits. There is hepatic color flow. The direction of portal flow is hepatopetal. There is no demonstrated mass lesion. Gallbladder: Th e patient is status post cholecystectomy. Common Bile Duct (C.B.D.): The common bile duct measures 8.9 mm. Pancreas: Normal size of the head, body of the pancreas. There is normal echogenicity of t he pancreas. There is no demonstrated pancreatic mass or cyst. Right Kidney: Normal size of the right kidney. The right kidney measures 9.5x5.7x4 cm. Normal renal cortex. The right cortex measures 1 .5 cm. There is no demonstrated renal mass or cyst. There is no right hydronephrosis. US/Liver IMPRESSION: Fatty infiltration of the liver . Electronically Signed: Apryl Melendez MD at 8:20 EDT Tel , Service support [phone], CC: Anjelica Salguero; Arabella Parish DO Ed Transporter: Signed 03-Sep-2015 Kidney and Bladder Result: Comments: See Note; NOTES: [facility] Imaging Services [address] [place] [address] Verdana 4d Kidney and Bladder MR#: [id number] Acct: [id number] Name: LISA LONGO THADSatish Dennis Rep #: [id number] : 1950 F 64 From: Bonilla Belle DO PCP: Arabella Parish DO Status: REG CLI Study: Kidney and Bladder Date of Exam: 09/03/15 Exam# [id number] Ordering Dr: Cosmo Martin MD STUDY: RENAL ULTRASOUND - COMPLETE REASON FOR EXAM: Female, 64 years old. Hematuria incontinence TECHNIQUE: Ultrasound evaluation of the kidneys was performed with real-time and static hartman-scal e imaging. COMPARISON: None. FINDINGS: RIGHT KIDNEY: Normal location of the right kidney, which is normal in size. The right kidney measures 9.4 x 4.6 x 4.5 c m. There is a normal cortex of the right kidney. The renal cortex measures 1.2 cm. There is no right renal mass or cyst. There are no right renal calculi. There is no right hydronephrosis. DISTAL R IGHT URETER: There is non-visualization of the distal right ureter. LEFT KIDNEY: Normal location of the left kidney, which is normal in size. The left kidney measures 10.0 x 4.2 x 4.8 cm. There is a normal cortex of the left kidney. The renal cortex measures 1.1 cm. There is no left renal mass or cyst. There is a 2 x 3 mm nonobstructing stone. There is no left hydronephrosis. DISTAL LEFT URET ER: There is non-visualization of the distal left ureter. BLADDER: The distended urinary bladder has a volume of 331 ml. The post void urinary bladder has a volume of 4 ml. There is a normal wall th ickness of the distended urinary bladder. There is no demonstrated mass within the urinary bladder. There are no demonstrated bladder calculi. IMPRESSION: Nonob structive left renal stone. Electronically Signed: Bonilla Belle DO at 23:38 EDT Tel [phone], Service support [phone], CC: Arabella Parish DO; Cosmo Martin MD Ed Transporter: Signed 23-Jul-2015 Bilat Scrn Digital AND CAD Result: Comments: See Note; NOTES: [facility] Imaging Services [address] [place] [address] Verdana 4d Bilat Scrn Digital AND CAD MR#: [id number] Acct: [id number] Name: SADIA LONGO Rep #: [id number] : 1950 F 64 From: Xu Davila MD PCP: Arabella Parish DO Status: REG CLI Study: Bilat Scrn Digital AND CAD Date of Exam: 07/23/15 Exam# [id number] Boogie phan Dr: Arabella Parish DO MAMMOGRAPHY - BILATERAL SCREENING REASON FOR EXAM: Female, 64 years old. Routine annual screening examination. PERTINENT HISTORY: Aunt with breast cancer. TECHNIQUE: Digi celena bilateral breast tomosynthesis (3-D mammographic acquisition) in the CC and MLO projections. Synthesized 2-D images (C-View reconstruction from tomosynthesis acquisition) providing bilateral breas t CC and MLO views. Mediolateral oblique (MLO) and craniocaudad (CC) views of both breasts were obtained. CAD: Full Field Digital Mammography with Computer Added Detection was performed. COMPARISON : Comparison is made with prior outside examination dated January 11, 2007. FINDINGS: Breast Composition: There are scattered areas of fibroglandular density. There are no dominant masses or suspicious calcifications. No other significant abnormalities are identified. There has been no significant change since the prior study. IMPRESSION: Stable bilateral screening mammogram. Yearly follow-up mammogram recommended. (A) ASSESSMENT CATEGORY: BIRADS Category 1: Negative. A l nkechi regarding these results will be sent to the patient by the facility within 30 days. Approximately 10% of breast cancers are not detected by mammography. A normal mammogram should not delay bio psy of a clinically suspicious abnormality. [id number] Electronically Signed: Xu Davila MD at 13:17 EDT Tel [phone], Service support [phone], CC: Arabella Parish DO Ed Transporter: Signed 08-Jun-2015 Chest PA and Lateral Result: Comments: See Note; NOTES: [facility] Imaging Services [address] [place] [address] Verdana 4d Chest PA and Lateral MR#: [id number] Acct: [id number] Name: SADIA LONGO Rep #: [id number] : 1950 F 64 From: Brock Wright MD PCP: Arabella Parish DO Status: REG CLI Study: Chest PA and Lateral Date of Exam: 06/08/15 Exam# [id number] Ordering Dr: Rasta Parish DO STUDY: X-RAY CHEST REASON FOR EXAM: Female, 64 years old. Cough, shortness of breath TECHNIQUE: PA and lateral views of the chest. COMPARISON: Prior chest x-ray from 10-30-13. FINDINGS: There are mild interstitial changes in the lower lobes. There is no demonstrated pleural abnormality. Normal size heart. Normal mediastinum and krish. Normal vi sualized pulmonary arteries. Normal visualized aortic arch and descending thoracic aorta. Normal visualized thoracic spine. Normal visualized ribs, clavicles, and shoulders. There is no demonstra damaris abnormality of the visualized soft tissue structures of the upper abdomen. IMPRESSION: Mild interstitial changes in the lower lobes. No acute infiltrates or pleural effusions noted Electronically Signed: Brock Wright MD, FACR at 20:39 EST , Service support [phone], RAD/Chest PA and Lateral IMPRESSION: Mild interstitial changes in the lower lobes. No acute infiltrates or pleural effusions noted Electronically Signed: Brock Wright MD, FACR at 20:39 ES T , Service support [phone], CC: Arabella Parish DO Ed Transporter: Signed 04-Jun-2015 Abdomen/Pelvis without Cont Result: Comments: See Note; NOTES: [facility] Imaging Services [address] [place] [address] Verdana 4d Abdomen/Pelvis without Cont MR#: [id number] Acct: [id number] Name: SADIA LONGO Rep #: [id number] : 1950 F 64 From: Bonilla Belle DO PCP: Arabella Parish DO Status: REG CLI Study: Abdomen/Pelvis without Cont Date of Exam: 06/04/15 Exam# [id number] Ordering Dr: Arabella Gaming DO STUDY: CT ABDOMEN AND PELVIS WITHOUT CONTRAST REASON FOR EXAM: Female, 64 years old. Left lower quadrant pain RADIATION DOSAGE (If Supplied By Facility): CTDIvol = ( 11.32 ) mGy, DL P = ( 525.77 ) mGycm TECHNIQUE: Transaxial images were obtained from the dome of the diaphragm to the symphysis pubis without oral contrast, and without intravenous contrast. Sagittal and coronal i mages were reconstructed. COMPARISON: None. FINDINGS: The visualized lung bases demonstrate mild bilateral effusion. The visualized portions of the heart are w ithin normal limits. Normal liver. Status post cholecystectomy. No significant dilatation of the extrahepatic biliary system. Normal spleen. Mild heterogeneity at the head of the pancreas. Normal bilateral adrenal glands. Normal right kidney. Normal left kidney. Small hiatal hernia. Normal small intestine. Diverticulosis of the colon. Diffuse colonic fecal retention. The appendix is nonvisu alized. Mildly calcified abdominal aorta. Normal inferior vena cava. Normal retroperitoneum. Normal urinary bladder. Small fat-containing umbilical hernia at the abdominal wall. Normal osseous s tructures. IMPRESSION: Small hiatal hernia. Diverticulosis of the colon mild diffuse fecal retention. Small fat- containing umbilical hernia. Mild heterogeneity of the pancreatic head without discrete mass seen. Mild bilateral pleural effusion in the lung bases. Electronically Signed: Bonilla Belle DO at 19:11 EST Tel [phone], Service support , CC: Arabella Parish DO Ed Transporter: Signed 27-Jul-2014 Sleep Study Report Result: Comments: See Note; NOTES: [facility] [address] [place] [address] Unattended Sleep Study MR#: [id number] Acct: [id number] Name: SADIA LONGO ep #: [id number] : 1950 63 From: Mason Garnett MD PCP: Arabella Parish DO Status: REG CLI Ordering Dr.: Mason Garnett MD Date: 07/21/14 Sex: F C APNEA LINK PORTABLE POLYSOMNOGRAM: REFERRI PHYSICIAN: Dr. Mason Granett. SLEEP HISTORY: The patient is a 63-year-old female with a calculated body mass index of 28.6 and an [place] Sleepiness Scale score of 20/24. The patient has complai nts of snoring, recurrent awakenings during the night, daytime sleepiness, dry mouth in the morning, nocturia, and is undergoing this study to evaluate for possible sleep disordered breathing. MEDIC ATIONS: Were not provided at time of this dictation. SCORING RULES: Respiratory events were acquired and scored in accordance with the Recommended Standards and Specifications as outlined in the AA SM Manual for the Scoring of Sleep and Associated Events (most recent version). Please note that a reference to [facility] AHI in this report is consistent with the current Hypopnea definition according to Medicare Criteria and an AASM AHI reference is consistent with the current Hypopnea definition according to the AASM criteria. PROCEDURE: The study was unattended in the patient's home setting. Patsy tored parameters included airflow with nasal pressure transducer, chest and abdominal plethysmography efforts, and oxygen saturation with heart rate. SLEEP STUDY DATA: The ApneaLink recording began July 21, 2014, at 10:38 p.m. and ended on July, at 7:03 a.m. for a total recording time of 8 hours and 25 minutes. The evaluation time was 6 hours and 13 minutes. Snoring was present during the recording. The overall apnea/hypopnea index was 1.8 with a respiratory index of 5.4. These numbers fall within normal ranges and do not raise concern for pathological sleep breathing disorder. Me an oxygen saturation during this study was 92% with a minimum oxygen saturation of 89%. The patient spent 62 minutes with an oxygen saturation equal to or less than 90% and 0 minutes with an oxygen sat uration equal to or less than 85%. Mean heart rate during this study was 50 beats per minute with a range of 42-76 beats per minute. DIAGNOSES: 1. Primary snoring. 2. Hypersomnia, NOS. IMPRESSION : 1. Primary snoring. Besides snoring, this study does not suggest an underlying sleep disordered breathing diagnosis. If there is still concern, the apnea/ hypopnea index during this study maybe under estimated, and thus the patient may benefit from a monitored polysomnogram performed in a sleep center setting. 2. Hypersomnia as determined by patient's subjective complaints, and elevated score on the [place] Sleepiness Scale are not explained by the results of this recording. Clinical correlation is needed. Possible etiologies would include underlying medical condition, mood disorder, medicati on side effect, or other sleep disorder that could not be identified by means of a portable sleep study. Again clinical correlation needed. RECOMMENDATIONS: 1. Clinical correlation as above. 2. Re commend the patient be advised not to drive or operate heavy machinery when sleepy. INTERPRETING PHYSICIAN: Mason Garnett Jr., MD CC: Mason Garnett MD 1410 1709 07/27/14 1219 <Electronically signed by Mason Garnett MD> OWUSU Date Mason Garnett MD Co-signature (if applicable) Date Signed Social History Name Dates Details Caffeine Use Comments: very little Status: Active No Drug Use Status: Active Non Drinker/No Alcohol Use Status: Active Tobacco use: Former smoker. Status: Active Smoking Status Name Dates Details Former smoker Vital Signs Date Test Result Details [id number] Temperature 97.5 f Comments: Method: Temporal Pulse 82 /min Comments: Pattern: Regular Respiration Rate 16 /min Comments: Pattern: Unlabored O2 SAT 94 % Comments: Room air BP Systolic 132 mm[Hg] Comments: Patient Position: Sitting; Cuff Location: Left Arm; Cuff Size: Standard BP Diastolic 84 mm[Hg] Comments: Patient Position: Sitting; Cuff Location: Left Arm; Cuff Size: Standard Weight 178.25 lb Height 61.5 in Body Mass Index Calculated 33.13 kg/m2 Body Surface Area Calculated 1.81 m2 :00 Temperature 98.1 f Comments: Method: Temporal Pulse 82 /min Comments: Pattern: Regular Respiration Rate 17 /min Comments: Pattern: Unlabored O2 SAT 96 % Comments: Room air BP Systolic 138 mm[Hg] Comments: Patient Position: Sitting; Cuff Location: Left Arm; Cuff Size: Standard BP Diastolic 72 mm[Hg] Comments: Patient Position: Sitting; Cuff Location: Left Arm; Cuff Size: Standard Weight 178.25 lb Height 61.5 in Body Mass Index Calculated 33.13 kg/m2 Body Surface Area Calculated 1.81 m2 :11 Temperature 97.6 f Pulse 78 /min Comments: Pattern: Regular Respiration Rate 17 /min Comments: Pattern: Unlabored O2 SAT 97 % Comments: Room air BP Systolic 132 mm[Hg] Comments: Patient Position: Sitting; Cuff Location: Left Arm; Cuff Size: Standard BP Diastolic 82 mm[Hg] Comments: Patient Position: Sitting; Cuff Location: Left Arm; Cuff Size: Standard Weight 177.375 lb Height 61.5 in Body Mass Index Calculated 32.97 kg/m2 Body Surface Area Calculated 1.81 m2 :30 Temperature 97.2 f Comments: Method: Temporal Pulse 103 /min Comments: Pattern: Regular Respiration Rate 16 /min Comments: Pattern: Unlabored O2 SAT 98 % Comments: Room air BP Systolic 124 mm[Hg] Comments: Patient Position: Sitting; Cuff Location: Left Arm; Cuff Size: Standard BP Diastolic 74 mm[Hg] Comments: Patient Position: Sitting; Cuff Location: Left Arm; Cuff Size: Standard Weight 174 lb Height 61.5 in Body Mass Index Calculated 32.34 kg/m2 Body Surface Area Calculated 1.79 m2 :25 Temperature 98.2 f Comments: Method: Temporal Pulse 90 /min Comments: Pattern: Regular Respiration Rate 16 /min Comments: Pattern: Unlabored O2 SAT 97 % Comments: Room air BP Systolic 130 mm[Hg] Comments: Patient Position: Sitting; Cuff Location: Left Arm; Cuff Size: Standard BP Diastolic 78 mm[Hg] Comments: Patient Position: Sitting; Cuff Location: Left Arm; Cuff Size: Standard Weight 172 lb Height 61.5 in Body Mass Index Calculated 31.97 kg/m2 Body Surface Area Calculated 1.78 m2 :38 Temperature 97.4 f Pulse 90 /min Comments: Pattern: Regular Respiration Rate 16 /min Comments: Pattern: Unlabored O2 SAT 95 % Comments: Room air BP Systolic 122 mm[Hg] Comments: Patient Position: Sitting; Cuff Location: Left Arm; Cuff Size: Standard BP Diastolic 80 mm[Hg] Comments: Patient Position: Sitting; Cuff Location: Left Arm; Cuff Size: Standard Weight 175.5 lb Height 61.5 in Body Mass Index Calculated 32.62 kg/m2 Body Surface Area Calculated 1.8 m2 :17 Temperature 97.6 f Pulse 106 /min Comments: Pattern: Regular Respiration Rate 18 /min Comments: Pattern: Unlabored O2 SAT 97 % Comments: Room air BP Systolic 146 mm[Hg] Comments: Patient Position: Sitting; Cuff Location: Left Arm; Cuff Size: Standard BP Diastolic 88 mm[Hg] Comments: Patient Position: Sitting; Cuff Location: Left Arm; Cuff Size: Standard Weight 175.5 lb Height 61.5 in Body Mass Index Calculated 32.62 kg/m2 Body Surface Area Calculated 1.8 m2 :41 Temperature 98.5 f Pulse 112 /min Comments: Pattern: Regular Respiration Rate 18 /min Comments: Pattern: Unlabored O2 SAT 95 % Comments: Room air BP Systolic 136 mm[Hg] Comments: Patient Position: Sitting; Cuff Location: Left Arm; Cuff Size: Standard BP Diastolic 84 mm[Hg] Comments: Patient Position: Sitting; Cuff Location: Left Arm; Cuff Size: Standard Weight 176.375 lb Height 61.5 in Body Mass Index Calculated 32.79 kg/m2 Body Surface Area Calculated 1.8 m2 :40 Temperature 98.4 f Pulse 101 /min Comments: Pattern: Regular Respiration Rate 16 /min Comments: Pattern: Unlabored O2 SAT 96 % Comments: Room air BP Systolic 116 mm[Hg] Comments: Patient Position: Sitting; Cuff Location: Left Arm; Cuff Size: Standard BP Diastolic 78 mm[Hg] Comments: Patient Position: Sitting; Cuff Location: Left Arm; Cuff Size: Standard Weight 175.125 lb Height 61.5 in Body Mass Index Calculated 32.55 kg/m2 Body Surface Area Calculated 1.8 m2 :30 Temperature 97.2 f Pulse 56 /min Comments: Pattern: Regular Respiration Rate 16 /min Comments: Pattern: Unlabored O2 SAT 97 % Comments: Room air BP Systolic 122 mm[Hg] Comments: Patient Position: Sitting; Cuff Location: Left Arm; Cuff Size: Standard BP Diastolic 80 mm[Hg] Comments: Patient Position: Sitting; Cuff Location: Left Arm; Cuff Size: Standard Weight 170.5 lb Height 61.5 in Body Mass Index Calculated 31.69 kg/m2 Body Surface Area Calculated 1.78 m2 :38 Temperature 97.5 f Pulse 89 /min Comments: Pattern: Regular Respiration Rate 16 /min Comments: Pattern: Unlabored O2 SAT 97 % Comments: Room air BP Systolic 116 mm[Hg] Comments: Patient Position: Sitting; Cuff Location: Left Arm; Cuff Size: Standard BP Diastolic 76 mm[Hg] Comments: Patient Position: Sitting; Cuff Location: Left Arm; Cuff Size: Standard Weight 167.375 lb Height 61.5 in Body Mass Index Calculated 31.11 kg/m2 Body Surface Area Calculated 1.76 m2 :05 Temperature 98.6 f Pulse 98 /min Comments: Pattern: Regular Respiration Rate 17 /min Comments: Pattern: Unlabored O2 SAT 97 % Comments: Room air BP Systolic 114 mm[Hg] Comments: Patient Position: Sitting; Cuff Location: Left Arm; Cuff Size: Standard BP Diastolic 72 mm[Hg] Comments: Patient Position: Sitting; Cuff Location: Left Arm; Cuff Size: Standard Weight 166.5 lb Height 61.5 in Body Mass Index Calculated 30.95 kg/m2 Body Surface Area Calculated 1.76 m2 :20 Temperature 97.4 f Comments: Method: Tympanic Pulse 90 /min Comments: Pattern: Regular Respiration Rate 18 /min Comments: Pattern: Unlabored O2 SAT 98 % Comments: Room air BP Systolic 126 mm[Hg] Comments: Patient Position: Sitting; Cuff Location: Left Arm; Cuff Size: Standard BP Diastolic 78 mm[Hg] Comments: Patient Position: Sitting; Cuff Location: Left Arm; Cuff Size: Standard Weight 166 lb Height 61.5 in Body Mass Index Calculated 30.86 kg/m2 Body Surface Area Calculated 1.76 m2 :23 Temperature 97.9 f Comments: Method: Temporal Pulse 106 /min Comments: Pattern: Regular Respiration Rate 16 /min Comments: Pattern: Unlabored O2 SAT 95 % Comments: Room air BP Systolic 112 mm[Hg] Comments: Patient Position: Sitting; Cuff Location: Left Arm; Cuff Size: Standard BP Diastolic 72 mm[Hg] Comments: Patient Position: Sitting; Cuff Location: Left Arm; Cuff Size: Standard Weight 167 lb Height 61.5 in Body Mass Index Calculated 31.04 kg/m2 Body Surface Area Calculated 1.76 m2 :15 Temperature 98.5 f Comments: Method: Temporal Pulse 104 /min Comments: Pattern: Regular Respiration Rate 17 /min Comments: Pattern: Unlabored O2 SAT 95 % Comments: Room air BP Systolic 112 mm[Hg] Comments: Patient Position: Sitting; Cuff Location: Left Arm; Cuff Size: Standard BP Diastolic 86 mm[Hg] Comments: Patient Position: Sitting; Cuff Location: Left Arm; Cuff Size: Standard Weight 169 lb Height 61.5 in Body Mass Index Calculated 31.41 kg/m2 Body Surface Area Calculated 1.77 m2 :04 Temperature 99.2 f Comments: Method: Oral Pulse 110 /min Comments: Pattern: Regular Respiration Rate 16 /min Comments: Pattern: Unlabored BP Systolic 98 mm[Hg] Comments: Patient Position: Sitting; Cuff Location: Left Arm; Cuff Size: Large BP Diastolic 70 mm[Hg] Comments: Patient Position: Sitting; Cuff Location: Left Arm; Cuff Size: Large Weight 167 lb Height 61.5 in Body Mass Index Calculated 31.04 kg/m2 Body Surface Area Calculated 1.76 m2 :14 Temperature 99.9 f Comments: Method: Oral Pulse 120 /min Comments: Pattern: Regular Respiration Rate 16 /min Comments: Pattern: Unlabored BP Systolic 108 mm[Hg] Comments: Patient Position: Sitting; Cuff Location: Left Arm; Cuff Size: Large BP Diastolic 76 mm[Hg] Comments: Patient Position: Sitting; Cuff Location: Left Arm; Cuff Size: Large Weight 166 lb Height 61.5 in Body Mass Index Calculated 30.86 kg/m2 Body Surface Area Calculated 1.76 m2 :22 Temperature 97.8 f Comments: Method: Oral Pulse 102 /min Comments: Pattern: Regular Respiration Rate 16 /min Comments: Pattern: Unlabored BP Systolic 114 mm[Hg] Comments: Patient Position: Sitting; Cuff Location: Left Arm; Cuff Size: Large BP Diastolic 78 mm[Hg] Comments: Patient Position: Sitting; Cuff Location: Left Arm; Cuff Size: Large Weight 166 lb Height 61.5 in Body Mass Index Calculated 30.86 kg/m2 Body Surface Area Calculated 1.76 m2 95-Une-891701:51 Temperature 99.1 f Pulse 108 /min Comments: Pattern: Regular Respiration Rate 16 /min Comments: Pattern: Unlabored BP Systolic 108 mm[Hg] Comments: Patient Position: Sitting; Cuff Location: Left Arm; Cuff Size: Large BP Diastolic 74 mm[Hg] Comments: Patient Position: Sitting; Cuff Location: Left Arm; Cuff Size: Large Weight 164 lb Height 61.5 in Body Mass Index Calculated 30.49 kg/m2 Body Surface Area Calculated 1.75 m2 Results Date Description Value Details :58 Basic Metabolic Profile (BMP) Comments: [facility] [id number] [place], [place], [id number] GAP 6 (Normal) Range: 5-15 CO2 27.0 mmol/L (Normal) Range: 21.0-32.0 CL 105 mmol/L (Normal) Range: 98-107 K 4.0 mmol/L (Normal) Range: 3.5-5.1 NA 138 mmol/L (Normal) Range: 136-145 CA 8.7 mg/dL (Normal) Range: 8.5-10.1 BUN/CRE 18.5 {RATIO} (Normal) Range: 10-20 Estimated CRCL 58.37 ml/min (Normal) EST GFR - AA 98 mL/min (Normal) Comments: GFR Calc EST GFR 81 mL/min (Normal) Comments: Non- GFR Calc CREAT,SERUM 0.76 mg/dL (Normal) Range: 0.55-1.02 Comments: The validity of the calculated GFR AND GFRAA in patients over70 years has not been determined. Clinical correlation isessential. BUN 14 mg/dL (Normal) Range: 7-18 GLU 84 mg/dL (Normal) Range: 74-106 Comments: Please note revised GLUCOSE reference range kudgncrry81/02/2018. 6-Vgw-066229:58 CBC W/Diff, Automated Comments: [facility] [address] [place], [address] Absolute Lymph 2.90 {X10_3/ul} (Normal) Range: 0.83-4.51 Absolute Neut 5.4 {X10_3/uL} (Normal) Range: 2.0-7.7 IM GRAN % 0.200 % (Normal) Range: 0.0-0.9 Comments: IG% - Immature Granulocytes (promyelocytes, myelocytes andmetamyelocytes) > 1% indicates that a LEFT SHIFT is Present. BASO% 0.4 % (Normal) Range: 0-1 EO% 2.0 % (Normal) Range: 0-5 MONO% 7.1 % (Normal) Range: 0-10 LY% 31.7 % (Normal) Range: 19-41 NEUT% 58.6 % (Normal) Range: 47-70 MPV 9.8 fL (Normal) Range: 6.2-12.0 PLT 232 K/mm3 (Normal) Range: 150-450 RDW SD 43.0 fL (Normal) Range: 35.1-43.9 RDW CV 12.7 % (Normal) Range: 11.6-14.6 MCHC 33.6 {g/gl} (Normal) Range: 32-36 MCH 31.9 pg (Normal) Range: 27.0-32.0 MCV 94.9 fL (Normal) Range: 81-99 HCT 46.1 % (Normal) Range: 37-47 HGB 15.5 g/dL (Abnormal) Range: 12.0-15.0 RBC 4.86 {M/mm3} (Normal) Range: 4.2-5.4 WBC 9.1 K/mm3 (Normal) Range: 4.4-11.0 0-Pzo-955360:58 Partial Thromboplast Time Comments: [address] [place], [place], [id number] PTT 26.9 s (Normal) Range: 24.1-36.2 7-Iub-641696:58 Prothrombin Time w/INR Comments: [address] [place], [place], [id number] INR 1.0 (Normal) PROTIME 12.8 s (Normal) Range: 11.7-14.9 7-Gay-850183:58 Thyroid Stim Hormone (TSH) Comments: [address] [place], [place], [address] TSH 0.02 {uIU/mL} (Abnormal) Range: 0.358-3.74 5-Gup-255781:58 Troponin-I Comments: [facility] [address] [place], [place], [address] TROPONIN-I < 0.015 ng/mL (Normal) Comments: TROPONIN-I EXPECTED VALUES <0.045 Negative 0.045 - 0.590 Consistent with Cardiac Damage > OR = 0.600 Critical Value Not every elevated troponin is indicative of TX. T hesevalues should be used with clinical judgement in examiningthe patient's clinical picture for diagnosis. To establisha diagnosis of TX versus myocardial injury, there must be ademonstrated rise and/ or fall in the troponin values, inaddition to ischemic symptoms, EKG changes, new regionalwall motion abnormality, and/or angiographical evidence. PLEASE NOTE: REFERENCE RANGES EDITED 09/03/1701-Mar-20188-Qsl-420015:08 Urinalysis, Office (15139) UA - LEUKOCYTE ESTERASE Negative (Normal) UA - NITRITE Negative (Normal) URINE UROBILINGN DENISE TIMED Normal mg/dL (Normal) UA - PROTEIN Negative mg/dL (Normal) UA - PH 6 (Abnormal) UA - BLOOD Hemolyzed Trace (Normal) UA - SPECIFIC GRAVITY 1.030 (Abnormal) UA - KETONES Negative mg/dL (Normal) UA - BILIRUBIN Negative (Normal) UA - GLUCOSE Negative (Normal) 81-Nhr-192899:30 T4, FREE (THYROXINE) (90995) Comments: PATIENT NOT FASTINGPERFORMED BY: [employer] [id number] [facility] [id number] T4,Free(Direct) 1.93 ng/dL (Abnormal) Range: 0.82-1.77 17-Rgi-830161:30 T3, FREE (TRIDOTHYRONINE) (84651) Comments: PATIENT NOT FASTINGPERFORMED BY: [employer] [id number] [facility] [id number] Triiodothyronine (T3), Free 3.1 pg/mL (Normal) Range: 2.0-4.4 30-Vpk-415524:30 TSH (THYROID STIMULATING Comments: PATIENT NOT FASTINGPERFORMED BY: [facility] [id number] [facility] [id number] HORMONE) (00666) TSH 0.006 {uIU/mL} (Abnormal) Range: 0.450-4.500 49-Gqj-728567:30 CALCIFEDIOL (32966) Comments: PATIENT NOT FASTINGPERFORMED BY: [facility] [id number] [facility] [id number] Vitamin D, 25-Hydroxy 33.6 ng/mL (Normal) Range: 30.0-100.0 Comments: Vitamin D deficiency has been defined by the [place] of[place]icine and an Endocrine Society practice guideline as alevel of serum 25-OH vitamin D less than 20 ng/mL (1,2).The Endocrine Society went on to further define vitamin Dinsufficiency as a level between 21 and 29 ng/mL (2).1. IOM ([place] of Medicine). 2010. Dietary reference intakes for calcium and D. [place]: The National Academies Press.2. Rodolfo MF, Dwight NC, Zeke OWUSU, et al. Evaluation, treatment, and prevention of vitamin D deficiency: an Endocrine Society clinical practice guideline. JCEM. 2010; 96(7):1911-30. 36-Fkb-379189:30 CBC, Platelets & Auto Diff Comments: PATIENT NOT FASTINGPERFORMED BY: [facility] Epolej2614 [facility] [id number] (51376) Immature Grans (Abs) 0.0 {x10E3/uL} (Normal) Range: 0.0-0.1 Immature Granulocytes 0 % (Normal) Baso (Absolute) 0.1 {x10E3/uL} (Normal) Range: 0.0-0.2 Eos (Absolute) 0.2 {x10E3/uL} (Normal) Range: 0.0-0.4 Monocytes(Absolute) 0.6 {x10E3/uL} (Normal) Range: 0.1-0.9 Lymphs (Absolute) 4.0 {x10E3/uL} (Abnormal) Range: 0.7-3.1 Neutrophils (Absolute) 5.4 {x10E3/uL} (Normal) Range: 1.4-7.0 Basos 1 % (Normal) Eos 2 % (Normal) Monocytes 6 % (Normal) Lymphs 39 % (Normal) Neutrophils 52 % (Normal) Platelets 237 {x10E3/uL} (Normal) Range: 150-379 RDW 13.7 % (Normal) Range: 12.3-15.4 MCHC 34.7 g/dL (Normal) Range: 31.5-35.7 MCH 32.2 pg (Normal) Range: 26.6-33.0 MCV 93 fL (Normal) Range: 79-97 Hematocrit 45.2 % (Normal) Range: 34.0-46.6 Hemoglobin 15.7 g/dL (Normal) Range: 11.1-15.9 RBC 4.87 {x10E6/uL} (Normal) Range: 3.77-5.28 WBC 10.3 {x10E3/uL} (Normal) Range: 3.4-10.8 21-Hnd-495220:30 Metabolic Panel, Comprehensive Comments: PATIENT NOT FASTINGPERFORMED BY: [facility][id number] [facility] [id number] (79791) ALT (SGPT) 18 [iU]/L (Normal) Range: 0-32 AST (SGOT) 16 [iU]/L (Normal) Range: 0-40 Alkaline Phosphatase 101 [iU]/L (Normal) Range: 39-117 Bilirubin, Total 0.4 mg/dL (Normal) Range: 0.0-1.2 A/G Ratio 1.7 (Normal) Range: 1.2-2.2 Globulin, Total 2.7 g/dL (Normal) Range: 1.5-4.5 Albumin 4.6 g/dL (Normal) Range: 3.6-4.8 Protein, Total 7.3 g/dL (Normal) Range: 6.0-8.5 Calcium 9.9 mg/dL (Normal) Range: 8.7-10.3 Carbon Dioxide, Total 25 mmol/L (Normal) Range: 20-29 Chloride 101 mmol/L (Normal) Range: 96-106 Potassium 4.5 mmol/L (Normal) Range: 3.5-5.2 Sodium 142 mmol/L (Normal) Range: 134-144 BUN/Creatinine Ratio 19 (Normal) Range: 12-28 eGFR If Africn Am 98 mL/min/1.73 (Normal) eGFR If NonAfricn Am 85 mL/min/1.73 (Normal) Creatinine 0.74 mg/dL (Normal) Range: 0.57-1.00 BUN 14 mg/dL (Normal) Range: 8-27 Glucose 70 mg/dL (Normal) Range: 65-99 45-Bru-345685:10 URINE KEE CULTURE-IDENTIFICATN Comments: PATIENT NOT FASTINGPERFORMED BY: [facility] [id number] [facility] [id number] Information: SRC:SHAZIA (54267) Result 2 MUG (Normal) Comments: Mixed urogenital flora1,000 Colonies/mL S = Susceptible; I = Intermediate; R = Resistant P = Positive; N = Negative MICS are expressed in micrograms per mL Anti biotic RSLT#1 RSLT#2 RSLT#3 RSLT#4Amoxicillin/Clavulanic Acid SAmpicillin SCefepime SCeftriaxone SCefuroxime SCiprofloxacin SErtapenem SGentamicin SImipenem SLevofloxacin SMeropenem SNitrofurantoin SPiperacillin/Tazobactam STetracycline STobramycin STrimethoprim/Sulfa S Result 1 Escherichia coli Comments: 3,000 Colonies/mLCefazolin <=4 ug/mLCefazolin with an JESSY <=16 predicts susceptibility to the oral agentscefaclor, cefdinir, cefpodoxime, cefprozil, cefuroxime, cephalexin,and loracarbef when used (Abnormal) for therapy of uncomplicated urinary tractinfections due to E. coli, Klebsiella pneumoniae, and Proteusmirabilis. Urine Final report (Abnormal) CultureSafia 11-Nky-725781:11 Urinalysis, Office (00293) UA - LEUKOCYTE ESTERASE Trace (Normal) UA - NITRITE Negative (Normal) URINE UROBILINGN DENISE TIMED Normal mg/dL (Normal) UA - PROTEIN Negative mg/dL (Normal) UA - PH 6.0 (Normal) UA - BLOOD Hemolyzed Trace (Normal) UA - SPECIFIC GRAVITY 1.030 (Abnormal) UA - KETONES Negative mg/dL (Normal) UA - BILIRUBIN Negative (Normal) UA - GLUCOSE Negative (Normal) 30-Shg-981656:01 HgA1C , Office (22357) HgA1C , Office 5.3 % (Normal) Range: 4.6 - 7.1 :00 Blood Glucose , Office (76893) Blood Glucose , Office 127 (Normal) :54 Blood Glucose , Office (85265) Blood Glucose , Office 109 (Normal) :54 HgA1C , Office (59369) HgA1C , Office 5.4 % (Normal) Range: 4.6 - 7.1 :10 Miscellaneous Lab Procedure Comments: Test(s) Ordered: [id number] [address] [place], [address] [facility] [place] Comments: [id number] 6+OXYCODONE-BUND (ng/mL)DRUG RESULT SCREEN CUTOFF____ Amphetamines,Urine Negat LAB (Normal) donna ng/mL 1000Amphetamine test includes Amphetamine and Methamphetamine.Barbiturates Negative ng/mL 200Benzodiazepines Negative ng/mL 200Cannabinoid TEST POSITIVE ng/mL 20 Carboxy THC GC/MS Conf 228 ng/mL 10Cocaine (Metab) Negative ng/mL 300Opiates POSITIVE ng/mL 300 Opiates test includes Codeine, Morphine, Hydromorphone, Hydrocodone. Please Note: Confirmation performed by Mass Spectrometry Codeine Negative 300 Morphine Positive Mor phine Confirm >3000 ng/mL 300 Hydromorphone Negative 300 Hydrocodone Negative 300Oxycodone/Oxymorphone,Urine Neg ative ng/mL 300 Test includes Oxydodone and Oxymorphone. TESTING PERFORMED AT [facility]. ORIGINAL REPORT ON FILE IN LAB CONTAINS AD DITIONAL TEST SITE INFORMATION. 63-Drd-833189:10 Urine Drug Screen (VISTA) Comments: List of Drugs Taken or Suspected? .[facility] [address] [place], [address] THC POSITIVE (Abnormal) PCP NEGATIVE (Normal) OPIATES POSITIVE (Abnormal) METHADONE NEGATIVE (Normal) ECSTACY POSITIVE (Abnormal) COCAINE NEGATIVE (Normal) BENZODIAZIPINE NEGATIVE (Normal) BARBITIURATES NEGATIVE (Normal) AMPHETAMINES NEGATIVE (Normal) VISTA UDS PH 5 (Normal) TO BE CONFIRMED (Normal) Comments: CONFIRMATORY TESTING FOR ALL POSITIVE URINE DRUG SCREENRESULTS WILL ONLY BE SENT OUT UPON PHYSICIAN ORDER.VISTA Urine Drug Screen methods provide only preliminaryanalytical test results. A more specific alternate chemicalmethod must be used in order to obtain a confirmedanalytical result. Gas chromatography/mass spectrometery(GC/MS) is the preferred confirmatory method. Clinicalconsideration and profe ssional judgement should be appliedto any drug of abuse test result, particularly whenpreliminary positive results are used.URINE TCA TESTING MUST BE ORDERED SEPARATELY. USE TESTMNEMONIC: [facility] 04-Vow-734523:33 HgA1C , Office (05365) HgA1C , Office 5.4 % (Normal) Range: 4.6 - 7.1 80-Mdu-829094:45 CPK MB FRACTION (61225) Comments: PATIENT WAS FASTINGPERFORMED BY: [employer]6370 [facility] [id number] Creatine Kinase (CK), MB 2.0 ng/mL (Normal) Range: 0.0-5.3 21-Akr-927674:45 ASSAY, TROPONIN, QUANTITATIVE Comments: PATIENT WAS FASTINGPERFORMED BY: [employer]6370 [facility] [id number] (aka Troponin I) (73214) Troponin I <0.01 ng/mL (Normal) Range: 0.00-0.04 06-Cxh-594498:45 LIPID PANEL (28548) Comments: PATIENT WAS FASTINGPERFORMED BY: [employer]6370 [facility] [id number] LDL/HDL Ratio 1.4 {ratio_units} (Normal) Range: 0.0-3.2 Comments: LDL/HDL Ratio Men Women 1/2 Avg.Risk 1.0 1.5 Av g.Risk 3.6 3.2 2X Avg.Risk 6.2 5.0 3X Avg.Risk 8.0 6.1 LDL Cholesterol Calc 94 mg/dL (Normal) Range: 0-99 VLDL Cholesterol Mike 21 mg/dL (Normal) Range: 5-40 HDL Cholesterol 66 mg/dL (Normal) Triglycerides 107 mg/dL (Normal) Range: 0-149 Cholesterol, Total 181 mg/dL (Normal) Range: 100-199 43-Sdc-121954:34 CBC, Platelets & Auto Diff Comments: PATIENT WAS FASTINGPERFORMED BY: [facility]Axmejd1776 [facility] [id number] (40752) Immature Grans (Abs) 0.0 {x10E3/uL} (Normal) Range: 0.0-0.1 Immature Granulocytes 0 % (Normal) Baso (Absolute) 0.0 {x10E3/uL} (Normal) Range: 0.0-0.2 Eos (Absolute) 0.2 {x10E3/uL} (Normal) Range: 0.0-0.4 Monocytes(Absolute) 0.6 {x10E3/uL} (Normal) Range: 0.1-0.9 Lymphs (Absolute) 1.9 {x10E3/uL} (Normal) Range: 0.7-3.1 Neutrophils (Absolute) 4.1 {x10E3/uL} (Normal) Range: 1.4-7.0 Basos 1 % (Normal) Eos 3 % (Normal) Monocytes 9 % (Normal) Lymphs 28 % (Normal) Neutrophils 59 % (Normal) Platelets 205 {x10E3/uL} (Normal) Range: 150-379 RDW 12.9 % (Normal) Range: 12.3-15.4 MCHC 32.8 g/dL (Normal) Range: 31.5-35.7 MCH 31.4 pg (Normal) Range: 26.6-33.0 MCV 96 fL (Normal) Range: 79-97 Hematocrit 46.3 % (Normal) Range: 34.0-46.6 Hemoglobin 15.2 g/dL (Normal) Range: 11.1-15.9 RBC 4.84 {x10E6/uL} (Normal) Range: 3.77-5.28 WBC 6.9 {x10E3/uL} (Normal) Range: 3.4-10.8 3-Txr-736241:33 HgA1C , Office (93943) HgA1C , Office 5.3 % (Normal) Range: 4.6 - 7.1 0-Seh-642329:33 Blood Glucose , Office (75234) Blood Glucose , Office 96 (Normal) 3-Bgb-686519:24 CBC With Differential/Platelet Comments: PATIENT NOT FASTINGPERFORMED BY: [facility] Wajvve1754 [facility] [id number] Immature Grans (Abs) 0.0 {x10E3/uL} (Normal) Range: 0.0-0.1 Immature Granulocytes 0 % (Normal) Baso (Absolute) 0.0 {x10E3/uL} (Normal) Range: 0.0-0.2 Eos (Absolute) 0.3 {x10E3/uL} (Normal) Range: 0.0-0.4 Monocytes(Absolute) 0.8 {x10E3/uL} (Normal) Range: 0.1-0.9 Lymphs (Absolute) 2.4 {x10E3/uL} (Normal) Range: 0.7-3.1 Neutrophils (Absolute) 5.2 {x10E3/uL} (Normal) Range: 1.4-7.0 Basos 0 % (Normal) Eos 3 % (Normal) Monocytes 9 % (Normal) Lymphs 28 % (Normal) Neutrophils 60 % (Normal) Platelets 211 {x10E3/uL} (Normal) Range: 150-379 RDW 13.3 % (Normal) Range: 12.3-15.4 MCHC 34.0 g/dL (Normal) Range: 31.5-35.7 MCH 32.3 pg (Normal) Range: 26.6-33.0 MCV 95 fL (Normal) Range: 79-97 Hematocrit 43.8 % (Normal) Range: 34.0-46.6 Hemoglobin 14.9 g/dL (Normal) Range: 11.1-15.9 Comments: Effective March 26, 2017 the reference interval for Hemoglobin MALES only will be changing to: Males 13-15 years: 12.6 - 17.7 Males >15 years: 13.0 - 17.7 RBC 4.62 {x10E6/uL} (Normal) Range: 3.77-5.28 WBC 8.8 {x10E3/uL} (Normal) Range: 3.4-10.8 :24 Comp. Metabolic Panel (14) Comments: PATIENT NOT FASTINGPERFORMED BY: [employer] [place] [employer] [place] [id number] ALT (SGPT) 18 [iU]/L (Normal) Range: 0-32 AST (SGOT) 18 [iU]/L (Normal) Range: 0-40 Alkaline Phosphatase, S 90 [iU]/L (Normal) Range: 39-117 Bilirubin, Total 0.5 mg/dL (Normal) Range: 0.0-1.2 A/G Ratio 1.5 (Normal) Range: 1.2-2.2 Globulin, Total 2.8 g/dL (Normal) Range: 1.5-4.5 Albumin, Serum 4.2 g/dL (Normal) Range: 3.6-4.8 Protein, Total, Serum 7.0 g/dL (Normal) Range: 6.0-8.5 Calcium, Serum 9.4 mg/dL (Normal) Range: 8.7-10.3 Carbon Dioxide, Total 23 mmol/L (Normal) Range: 18-29 Chloride, Serum 102 mmol/L (Normal) Range: 96-106 Potassium, Serum 4.0 mmol/L (Normal) Range: 3.5-5.2 Sodium, Serum 144 mmol/L (Normal) Range: 134-144 BUN/Creatinine Ratio 17 (Normal) Range: 12-28 eGFR If Africn Am 96 mL/min/1.73 (Normal) eGFR If NonAfricn Am 83 mL/min/1.73 (Normal) Creatinine, Serum 0.76 mg/dL (Normal) Range: 0.57-1.00 BUN 13 mg/dL (Normal) Range: 8-27 Glucose, Serum 102 mg/dL (Abnormal) Range: 65-99 1-Vbx-911025:24 Lipid Panel With LDL/HDL Comments: PATIENT NOT FASTINGPERFORMED BY: [employer] [place] [id number] Ratio LDL/HDL Ratio 2.1 {ratio_units} Range: 0.0-3.2 (Normal) Comments: LDL/HDL Ratio Men Women 1/2 Avg.Risk 1.0 1.5 Av g.Risk 3.6 3.2 2X Avg.Risk 6.2 5.0 3X Avg.Risk 8.0 6.1 LDL Cholesterol Calc 101 mg/dL (Abnormal) Range: 0-99 VLDL Cholesterol Mike 52 mg/dL (Abnormal) Range: 5-40 HDL Cholesterol 47 mg/dL (Normal) Triglycerides 258 mg/dL (Abnormal) Range: 0-149 Cholesterol, Total 200 mg/dL (Abnormal) Range: 100-199 Vitamin D, 25-Hydroxy 25.9 ng/mL (Abnormal) Comments: PATIENT NOT FASTINGPERFORMED BY: [employer]6370 [facility] [id number] 3:24 Range: 30.0-100.0 Comments: Vitamin D deficiency has been defined by the [place] ofUc Medical Centercine and an Endocrine Society practice guideline as alevel of serum 25-OH vitamin D less than 20 ng/mL (1,2).The Endocrine Society went on to further define vitamin Dinsufficiency as a level between 21 and 29 ng/mL (2).1. IOM ([place] of Medicine). 2010. Dietary reference intakes for calcium and D. [place]: The National Academies Press.2. Rodolfo MF, Dwight [place], Zeke OWUSU, et al. Evaluation, treatment, and prevention of vitamin D deficiency: an Endocrine Society clinical practice guideline. JCEM. 2010; 96(7):1911-30. 2-Kfj-566695:58 MICROALBUMIN: CREATININE RATIO Comments: PATIENT NOT FASTINGPERFORMED BY: [employer] Voszij[address]43 [address] [facility] CenterMeta IndustriesGood [facility] Hospital [id number] (53232) AND (61238) Microalb/Creat Ratio 14.5 {mg/g_creat} (Normal) Range: 0.0-30.0 Microalbumin, Urine 4.1 ug/mL (Normal) Creatinine, Urine 28.2 mg/dL (Normal) 3-Rek-802246:18 Miscellaneous Lab Procedure Comments: Comments: [id number] URINE DRUGTest(s) Ordered: [id number] [facility] Ybgfbsrrmu5146 [place], [id number] [facility] [place]: [id number] 6+OXYCODONE-BUND (ng/mL)DRUG RESULT SCREEN CUTOFF____ Amphetamines,Urine Negat LAB (Normal) donna ng/mL 1000Amphetamine test includes Amphetamine and Methamphetamine.Barbiturates Negative ng/mL 200Benzodiazepines Positive ng/mL 200Please Note:Co TEST nfirmation performed by Mass SpectrometryNordiazepam Negative 100Oxazepam Negative 100Flurazepam Negative 100Lorazepa m Negative 100Alprazolam Negative 100Clonazepam Positive Clonazepam Confirm 908 ng/mL 100Temazepam Negative 100Triazolam Negative 100Midazolam Negative 100Cannabinoid Negative ng/mL 20Cocaine (Metab) Negative ng/mL 300Opiates Positive ng/mL 300 Opiates test includes Codeine, Morphine, Hydromorphone, Hydrocodone.Please Note:Confirmation performed by Mass SpectrometryCod eine Negative 300Morphine Positive Morphine Confirm >3000 ng/mL 300Hydromorphone Negative 300Hydrocodone Neg ative 300Oxycodone/Oxymorphone,Urine Negative ng/mL 300 Test includes Oxydodone and Oxymorphone. ____ TESTING PERFORMED AT [facility]. ORIGINAL REPORT ON FILE IN LAB CONTAINS ADDITIONAL TEST SITE INFORMATION. 7-Fia-885858:18 Urine Drug Screen (VISTA) Comments: Comments: 130080 URINE DRUGList of Drugs Taken or Suspected? [facility] Qpztfztwdz8386 [place], [address] THC NEGATIVE (Normal) PCP NEGATIVE (Normal) OPIATES POSITIVE (Abnormal) METHADONE NEGATIVE (Normal) ECSTACY POSITIVE (Abnormal) COCAINE NEGATIVE (Normal) BENZODIAZIPINE NEGATIVE (Normal) BARBITIURATES NEGATIVE (Normal) AMPHETAMINES NEGATIVE (Normal) VISTA UDS PH 6 (Normal) TO BE CONFIRMED (Normal) Comments: CONFIRMATORY TESTING FOR ALL POSITIVE URINE DRUG SCREENRESULTS WILL ONLY BE SENT OUT UPON PHYSICIAN ORDER.VISTA Urine Drug Screen methods provide only preliminaryanalytical test results. A more specific alternate chemicalmethod must be used in order to obtain a confirmedanalytical result. Gas chromatography/mass spectrometery(GC/MS) is the preferred confirmatory method. Clinicalconsideration and profe ssional judgement should be appliedto any drug of abuse test result, particularly whenpreliminary positive results are used.URINE TCA TESTING MUST BE ORDERED SEPARATELY. USE TESTMNEMONIC: [facility] 84-Qzl-241832:14 HGB A1C (34367) Comments: PATIENT NOT FASTINGPERFORMED BY: [employer]6370 EQ worksGood Hope Hospital [id number] Hemoglobin A1c 5.6 % (Normal) Range: 4.8-5.6 Comments: . Pre-diabetes: 5.7 - 6.4 Diabetes: >6.4 Glycemic control for adults with diabetes: <7.0 41-Byr-807948:11 URINE KEE CULTURE-IDENTIFICATN Comments: PATIENT NOT FASTINGPERFORMED BY: [employer] Khumtu2858 EQ worksGood Hope Hospital [id number] Information: SRC:SHAZIA (57199) Antimicrobial MIHEAD (Normal) Comments: S = Susceptible; I = Intermediate; R = Resistant P = Positive; N = Negative MICS are expressed in micrograms per mL Antibiotic RSLT#1 RSLT#2 RS Susceptibility LT#3 RSLT#4Amoxicillin/Clavulanic Acid SAmpicillin SCefepime SCeftriaxone SCefuroxime SCephalothin SCiprofloxacin SErtapenem SGentamicin SImipenem SLevofloxacin SNitrofurantoin SPipera cillin STetracycline STobramycin STrimethoprim/Sulfa S Result 1 Escherichia coli Comments: 10,000-25,000 colony forming units per mL (Abnormal) Urine Final report Culture,Comprehensive (Abnormal) 76-Dcf-571576:42 Urinalysis, Office (42197) UA - LEUKOCYTE ESTERASE Moderate (Normal) UA - NITRITE Negative (Normal) URINE UROBILINGN DENISE TIMED Normal mg/dL (Normal) UA - PROTEIN Negative mg/dL (Normal) UA - PH 5 (Abnormal) UA - BLOOD Hemolyzed Small (Normal) UA - SPECIFIC GRAVITY 1.025 (Normal) UA - KETONES Negative mg/dL (Normal) UA - BILIRUBIN Negative (Normal) UA - GLUCOSE Negative (Normal) 69-Rtp-988808:58 URINE KEE CULTURE-IDENTIFICATN Comments: PATIENT NOT FASTINGPERFORMED BY: [facility] [id number] [facility] [id number] Information: SRC:SHAZIA (88539) Antimicrobial MIHEAD (Normal) Comments: S = Susceptible; I = Intermediate; R = Resistant P = Positive; N = Negative MICS are expressed in micrograms per mL Antibiotic RSLT#1 RSLT#2 RS Susceptibility LT#3 RSLT#4Amoxicillin/Clavulanic Acid SAmpicillin SCefepime SCeftriaxone SCefuroxime SCephalothin SCiprofloxacin SErtapenem SGentamicin SImipenem SLevofloxacin SNitrofurantoin SPipera cillin STetracycline STobramycin STrimethoprim/Sulfa S Result 1 Escherichia coli Comments: Greater than 100,000 colony forming units per mL (Abnormal) Urine Final report Culture,Comprehensive (Abnormal) 20-Unq-052203:45 Urinalysis, Office (76182) UA - LEUKOCYTE ESTERASE Small (Normal) UA - NITRITE Negative (Normal) URINE UROBILINGN DENISE TIMED Normal mg/dL (Normal) UA - PROTEIN Negative mg/dL (Normal) UA - PH 6 (Abnormal) UA - BLOOD Hemolyzed Small (Normal) UA - SPECIFIC GRAVITY 1.030 (Abnormal) UA - KETONES Moderate mg/dL (Normal) UA - BILIRUBIN Small (Normal) UA - GLUCOSE Negative (Normal) 65-Dpz-622276:30 Miscellaneous Lab Procedure Comments: Test(s) Ordered: [id number], URINE TOXICOLOGYMount [facility] Tzpxbfdhto4969 [address] [place], [place], [id number] [facility] [place] Comments: [id number] 6+OXYCODONE-BUND (ng/mL)DRUG RESULT SCREEN CUTOFF____ Amphetamines Negat LAB (Normal) donna ng/mL 1000Barbiturates Negative ng/mL 200Benzodiazepines Negative ng/mL 200Cannabinoid Positive ng/mL 20 Carboxy THC GC/MS Con TEST f 111 ng/mL 10Cocaine (Metab) Negative ng/mL 300Opiates Positive ng/mL 300 Opiates test includes Codeine, Morphine, Hydromorphone, Hydrocodone. Codeine Negative 300 Morphine Positive Morphine Confirm >3000 ng/mL 300 Hydromorphone Positive Hydromorphone 440 ng/m L 300 Hydrocodone NegativeOxycodone/Oxymorphone,Urine Negative ng/mL 300 Test includes Oxydodone and Oxymorphone. TESTING PERFORM ED AT [facility]. ORIGINAL REPORT ON FILE IN LAB CONTAINS ADDITIONAL TEST SITE INFORMATION. 35-Huq-670621:30 Urine Drug Screen (VISTA) Comments: List of Drugs Taken or Suspected? [facility] Znqeddksuj[address] [place], [address] THC POSITIVE (Abnormal) PCP NEGATIVE (Normal) OPIATES POSITIVE (Abnormal) METHADONE NEGATIVE (Normal) ECSTACY POSITIVE (Abnormal) COCAINE NEGATIVE (Normal) BENZODIAZIPINE NEGATIVE (Normal) BARBITIURATES NEGATIVE (Normal) AMPHETAMINES NEGATIVE (Normal) VISTA UDS PH 4 (Normal) TO BE CONFIRMED (Normal) Comments: CONFIRMATORY TESTING FOR ALL POSITIVE URINE DRUG SCREENRESULTS WILL ONLY BE SENT OUT UPON PHYSICIAN ORDER.VISTA Urine Drug Screen methods provide only preliminaryanalytical test results. A more specific alternate chemicalmethod must be used in order to obtain a confirmedanalytical result. Gas chromatography/mass spectrometery(GC/MS) is the preferred confirmatory method. Clinicalconsideration and profe ssional judgement should be appliedto any drug of abuse test result, particularly whenpreliminary positive results are used.URINE TCA TESTING MUST BE ORDERED SEPARATELY. USE TESTMNEMONIC: [facility] :48 TSH (THYROID STIMULATING Comments: PATIENT NOT FASTINGPERFORMED BY: CB [facility] Mhdjiv28[address] RoadDublin [place] [id number] HORMONE) (18313) TSH 13.590 {uIU/mL} (Abnormal) Range: 0.450-4.500 :35 TSH (THYROID STIMULATING Comments: PATIENT NOT FASTINGPERFORMED BY: CB [facility] Vrrgkp4822 [address]Dublin [place] [id number] HORMONE) (49220) TSH 0.080 {uIU/mL} (Abnormal) Range: 0.450-4.500 :35 [id number]-[id number]-IVRSD (10154) Comments: PATIENT NOT FASTINGPERFORMED BY: CB [facility] Ouauww[address] [place] [id number] AFP, Serum, Tumor Marker 2.7 ng/mL (Normal) Range: 0.0-8.3 Comments: Katerin ECLIA methodology :35 SPEP (51082) Comments: PATIENT NOT FASTINGPERFORMED BY: [facility] Kfrdss[address] [facility] Hospitalin [place] [id number] Information: [id number] Please note: SPRCS (Normal) Comments: Protein electrophoresis scan will follow via computer, mail, orcourier delivery. A/G Ratio 1.1 (Normal) Range: 0.7-1.7 Globulin, Total 3.0 g/dL (Normal) Range: 2.2-3.9 M-Ramana Not Observed g/dL (Normal) Gamma Globulin 1.1 g/dL (Normal) Range: 0.4-1.8 Beta Globulin 1.0 g/dL (Normal) Range: 0.7-1.3 Gxatu-4-Glthtslf 0.6 g/dL (Normal) Range: 0.4-1.0 Xneyx-2-Vpvhojxf 0.3 g/dL (Normal) Range: 0.0-0.4 Albumin 3.3 g/dL (Normal) Range: 2.9-4.4 Protein, Total, Serum 6.3 g/dL (Normal) Range: 6.0-8.5 8-Xgt-648539:10 UPEP (90617) Comments: PATIENT NOT FASTINGPERFORMED BY: [address] [id number] Information: [id number] Please note: SPRCS (Normal) Comments: Protein electrophoresis scan will follow via computer, mail, orcourier delivery. M-Ramana, % Not Observed % (Normal) Gamma Globulin, U 17.4 % (Normal) Beta Globulin, U 30.8 % (Normal) Lbpmg-9-Omdfutyf, U 20.9 % (Normal) Ittms-0-Avhtvzbc, U 7.5 % (Normal) Albumin, U 23.4 % (Normal) Protein,Total,Urine 4.9 mg/dL (Normal) 0-Gsu-950480:08 urine immunofixation (02363) Comments: PATIENT NOT FASTINGPERFORMED BY: [address] [id number] Information: SRC:UR [id number] MIGDALIA Interpretation:U UPEIP (Normal) Comments: No monoclonality detected. 0-Qhb-032086:50 Urinalysis, Office (47777) UA - LEUKOCYTE ESTERASE Negative (Normal) UA - NITRITE Negative (Normal) URINE UROBILINGN DENISE TIMED Normal mg/dL (Normal) UA - PROTEIN Negative mg/dL (Normal) UA - PH 6.0 (Normal) Comments: 5.5 UA - BLOOD Negative (Normal) UA - SPECIFIC GRAVITY 1.030 (Abnormal) UA - KETONES Small mg/dL (Normal) UA - BILIRUBIN Negative (Normal) UA - GLUCOSE Negative (Normal) 77-Gor-143890:30 ANTINUCLEAR ANTIBODIES DIRECT Comments: [facility] (refer to report for specific site)refer to report for address and phone number ELIJAH-DIRECT Negative (Normal) Comments: Performed at: [address] [id number] Director: Ren Mcgovern PhD, Phone: [phone] 09-Zig-083238:30 CBC W/Diff, Automated Comments: [facility] [address] [place], [address] Absolute Lymph 2.05 {X10_3/ul} (Normal) Range: 0.83-4.51 Absolute Neut 5.1 {X10_3/uL} (Normal) Range: 2.0-7.7 IM GRAN % 0.100 % (Normal) Range: 0.0-0.9 Comments: IG% - Immature Granulocytes (promyelocytes, myelocytes andmetamyelocytes) > 1% indicates that a LEFT SHIFT is Present. BASO% 0.5 % (Normal) Range: 0-1 EO% 1.8 % (Normal) Range: 0-5 MONO% 7.3 % (Normal) Range: 0-10 LY% 25.9 % (Normal) Range: 19-41 NEUT% 64.4 % (Normal) Range: 47-70 MPV 9.8 fL (Normal) Range: 6.2-12.0 PLT 193 K/mm3 (Normal) Range: 150-450 RDW SD 41.6 fL (Normal) Range: 35.1-43.9 RDW CV 12.3 % (Normal) Range: 11.6-14.6 MCHC 34.1 {g/gl} (Normal) Range: 32-36 MCH 32.3 pg (Abnormal) Range: 27.0-32.0 MCV 94.7 fL (Normal) Range: 81-99 HCT 43.1 % (Normal) Range: 37-47 HGB 14.7 g/dL (Normal) Range: 12.0-15.0 RBC 4.55 {M/mm3} (Normal) Range: 4.2-5.4 WBC 7.9 K/mm3 (Normal) Range: 4.4-11.0 :30 Comprehensive Metabolic Profil Comments: Serial Specimen #1, #2 or #3? 1[facility] Wrrhmlwwkm[address] [place], [address] GAP 6 (Normal) Range: 5-15 CO2 27.0 mmol/L (Normal) Range: 21.0-32.0 CL 107 mmol/L (Normal) Range: 98-107 K 4.0 mmol/L (Normal) Range: 3.5-5.1 NA 140 mmol/L (Normal) Range: 136-145 T BILI 0.30 mg/dL (Normal) Range: 0.20-1.00 ALT 24 U/L (Normal) Range: 12-78 ALK P 68 U/L (Normal) Range: 50-136 AST 22 U/L (Normal) Range: 15-37 CA 8.6 mg/dL (Normal) Range: 8.5-10.1 A/G 0.9 {RATIO} (Normal) Range: 0.9-2.4 GLOB 3.7 g/dL (Abnormal) Range: 2.3-3.5 ALB 3.4 g/dL (Normal) Range: 3.4-5.0 T PROT 7.1 g/dL (Normal) Range: 6.4-8.2 BUN/CRE 15.0 {RATIO} (Normal) Range: 10-20 EST GFR - AA 103 mL/min (Normal) Comments: GFR Calc EST GFR 85 mL/min (Normal) Comments: Non- GFR Calc CREAT,SERUM 0.73 mg/dL (Normal) Range: 0.55-1.20 Comments: The validity of the calculated GFR AND GFRAA in patients over70 years has not been determined. Clinical correlation isessential. BUN 11 mg/dL (Normal) Range: 7-18 GLU 101 mg/dL (Normal) Range: 70-110 29-Iye-283197:30 CRP Comments: Serial Specimen #1, #2 or #3? [facility] Fhxrnskgxt8[address] [place], [place], [id number] C-REACTIVE PROT < 2.90 mg/L (Normal) Range: 0.0-3.0 Comments: C-Reactive Protein (CRP) provides useful information for thediagnosis, therapy and monitoring of inflammatory processesand associated diseases. For the evaluation of Relative Riskfor Cardiovascular Dise ase, a High Sensitivity CRP (HSCRP)should be ordered. 60-Yds-628017:30 Erythrocyte Sed Rate Comments: [facility] [address]bqout[address] [place], [place], [id number] SED RATE 20 mm/h (Normal) Range: 0-30 81-Dhi-172953:30 Immunofixation Urine Comments: [facility] (refer to report for specific site)refer to report for address and phone number MIGDALIA Urine Test not performed (Normal) Comments: Quantity was not sufficient for analysis.CONTACTED MAHAD AT YOUR FACILITY 11-15-1513-Nov-201531-Aei-323418:30 Immunofixation, Serum Comments: [facility] (refer to report for specific site)refer to report for address and phone number MIGDALIA RESULT,S Comment (Normal) Comments: No monoclonality detected. IMMUNOGL M 137 mg/dL (Normal) Range: 26-217 IMMUNO A 225 mg/dL (Normal) Range: 87-352 IMMUNO G 1077 mg/dL (Normal) Range: 700-1600 59-Fqb-635302:[address] Lambda Light Chains Comments: [facility] (refer to report for specific site)refer to report for address and phone number KAPPA/LAMBDA % 1.03 (Normal) Range: 0.26-1.65 FR LAMBDA LT CH 17.65 mg/L (Normal) Range: 5.71-26.30 FR KAPPA LT CHN 18.21 mg/L (Normal) Range: 3.30-19.40 :30 LDH 201 U/L (Normal) Comments: Serial Specimen #1, #2 or #3? 1[facility] Ldfezkzqcf0624 [facility] [place], [place], [id number] Range: 84-246 87-Onc-260306:30 Microalb:Creat Ratio,Random UR Comments: [facility] Rrmfqtleka8104 [facility]. [place], [place], [id number] MALB:CREAT 7.0 {mg/g_CRE} (Normal) MICROALBUMIN,UR 10.3 mg/L (Normal) UR CREAT 148.00 mg/dL (Normal) 58-Snl-992213:30 Protein Electro.Ur-Random Comments: [facility] (refer to report for specific site)refer to report for address and phone number NOTE Comment (Normal) Comments: Protein electrophoresis scan will follow via computer,mail, or leather skinner delivery. M-SPIKE,U Test not performed (Normal) GAMMA GLOB,U Test not performed (Normal) Comments: Test not performed BETA GLOB,U Test not performed (Normal) Comments: Test not performed JXRWW-2-QNTV,U Test not performed (Normal) Comments: Test not performed DGGWC-7-UVJP,U Test not performed (Normal) Comments: Test not performed ALBUMIN,UR Test not performed (Normal) Comments: Test not performed PROTEIN,UR Test not performed mg/dL Comments: Quantity was not sufficient for analysis.CONTACTED MAHAD AT YOUR FACILITY 11-15-15 (Normal) 85-Une-764383:30 Urinalysis, Routine (Dipstick) Comments: How was Urine Obtained? CLEAN CATCHMount [facility]el [facility] System [address]arxixftef[address] [place], [place], [address] LEUK ESTERASE 25 /ul (Abnormal) OCCULT BLOOD-UR 25 /ul (Abnormal) NITRITE UR Negative (Normal) UROBILI Normal mg/dL (Normal) PROT DIPSTX Negative mg/dL (Normal) pH UR 5.0 (Normal) Range: 5.0 - 8.0 SP.GR. DIPSTX 1.025 (Normal) Range: 1.002-1.030 KETONE UR Negative mg/dL (Normal) BILIRUBIN URINE Negative mg/dL (Normal) GLUCOSE, UR Normal mg/dL (Normal) CLARITY Clear (Normal) COLOR Yellow (Normal) 80-Jsa-781970:00 Cytology, Body Fluid / CSF Comments: Specimen Source: [facility] [address] [place] [address], [id number] CYTOLOGY,BF/CSF SEE PATHOLOGY REPORT Comments: [facility] (Normal) 60-Mzk-284982:00 CYTOSPIN ON FLUID See Note (Normal) Comments: [address], [address] Comments: Patient: SADIA LONGO : 1950 (64/F) Acct Num: [id number] Phys: Veronica GARZA,Yung Unit Num: [id number] Loc: [facility] Specimen: [id number] Received: 08/31/15 - 1314 Spec Type: CYSPIN FL TISSUES TISSUES: CULTURE RESULTS No results available. CYTOLOGY GROSS Received is 10 ml of clear gold fluid labeled with the patient's name and and designat ed per the requisition as urine. Submitted for cytology preparation. / 08/31/15 TC:5 CPT:74386 CYTOLOGY STUDY Slides are reviewed. The specimen consists of benign squamous cells, benign urothelial cells and neutrophils. DIAGNOSIS CYTOLOGY Urine for cytology (cytospin): Negative for malignant cells. SJ:meliza 09/01/15 HEADER OPERATION: Not noted PRE-OP DIAGNOSIS: Hematu johnnie TISSUE SUBMITTED: Urine cytology Signed Samy Zayas 09/01/15 <signature on file> 62-Wmb-959148:04 Urinalysis, Office (16664) UA - LEUKOCYTE ESTERASE Negative (Normal) UA - NITRITE Negative (Normal) URINE UROBILINGN DENISE TIMED Normal mg/dL (Normal) UA - PROTEIN Negative mg/dL (Normal) UA - PH 5 (Abnormal) UA - BLOOD Hemolyzed Trace (Normal) UA - SPECIFIC GRAVITY 1.030 (Abnormal) UA - KETONES Negative mg/dL (Normal) UA - BILIRUBIN Negative (Normal) UA - GLUCOSE Negative (Normal) 71-Uas-454933:52 URINE KEE CULTURE-IDENTIFICATN Comments: PATIENT NOT FASTINGPERFORMED BY: [facility]Uobtft4702 [facility] [id number] Information: [id number] (63035) Antimicrobial MIHEAD (Normal) Comments: S = Susceptible; I = Intermediate; R = Resistant P = Positive; N = Negative MICS are expressed in micrograms per mL Antibiotic RSLT#1 RSLT#2 RS Susceptibility LT#3 RSLT#4Amoxicillin/Clavulanic Acid SAmpicillin SCefepime SCeftriaxone SCefuroxime SCephalothin SCiprofloxacin SErtapenem SGentamicin SImipenem SLevofloxacin SNitrofurantoin SPipera cillin STetracycline STobramycin STrimethoprim/Sulfa S Result 1 Escherichia coli Comments: 50,000-100,000 colony forming units per mL (Abnormal) Urine Final report Culture,Comprehensive (Abnormal) Plan of Care Name Dates Details Instructions Nonsmoker : Follow up - Make appt after diagnostic tests Indication: Nonsmoker Nonsmoker : Eprescribed prescriptions (G8553) Indication: Nonsmoker BMI 33.0-33.9,adult : Follow up in 2 weeks Indication: BMI 33.0-33.9,adult Nonsmoker : Eprescribed prescriptions (G8553) Indication: Nonsmoker BMI 32.0-32.9,adult : Follow up in 3 months Indication: BMI 32.0-32.9,adult Diabetes mellitus type II, controlled : Eprescribed prescriptions (G8553) Indication: Diabetes mellitus type II, controlled Nonsmoker : Follow up in 3 months Indication: Nonsmoker BMI 31.0-31.9,adult : Eprescribed prescriptions (G8553) Indication: BMI 31.0-31.9,adult High triglycerides : Follow up in 3 months Indication: High triglycerides Nonsmoker : Eprescribed prescriptions (G8553) Indication: Nonsmoker Nonsmoker : Follow up if no improvement or if symptoms worsen Indication: Nonsmoker Hypertension : Eprescribed prescriptions (G8553) Indication: Hypertension Vitamin D deficiency : Follow up in 3 months Indication: Vitamin D deficiency Diabetes mellitus type II, controlled : Eprescribed prescriptions (G8553) Indication: Diabetes mellitus type II, controlled Fatty liver : Follow up in 3 months Indication: Fatty liver Nonsmoker : Eprescribed prescriptions (G8553) Indication: Nonsmoker Skin lesion of left leg : Follow up in 3 months Indication: Skin lesion of left leg Fatty liver : Follow up in 3 months labs around Jun 12 then follow up one week later Indication: Fatty liver Fatty liver : Reviewed Lab Indication: Fatty liver Abnormal TSH : Reviewed Lab Indication: Abnormal TSH Lymphadenopathy : Reviewed Lab Indication: Lymphadenopathy Depression : Reviewed Lab Indication: Depression Back pain : Follow up in 2 months Indication: Back pain Swelling of both lower extremities : Follow up in 1 week Indication: Swelling of both lower extremities High triglycerides : Diet, Exercise, and Wt loss Indication: High triglycerides Encounter for gynecological examination without abnormal finding : Eprescribed prescriptions (G8553) Indication: Encounter for gynecological examination without abnormal finding Encounter for gynecological examination without abnormal finding : Self breast exam Indication: Encounter for gynecological examination without abnormal finding Encounter for gynecological examination without abnormal finding : *Well Female Maintenance (SMC) Indication: Encounter for gynecological examination without abnormal finding Encounter for gynecological examination without abnormal finding : Pap/Pelvic/Bimanual/Rectal/Breast Exam was done. Indication: Encounter for gynecological examination without abnormal finding Fibromyalgia (Renamed from Diffuse myofascial pain syndrome) : Eprescribed prescriptions (G8553) Indication: Fibromyalgia (Renamed from Diffuse myofascial pain syndrome) Memory change : Eprescribed prescriptions (G8553) Indication: Memory change Fibromyalgia (Renamed from Diffuse myofascial pain syndrome) : Fibromyalgia *: fibromyalgia Indication: Fibromyalgia (Renamed from Diffuse myofascial pain syndrome) Planned Observations T4, FREE (THYROXINE) (94124)Indication: Abnormal thyroid function test On: :59 Request T3, FREE (TRIDOTHYRONINE) (92576)Indication: Abnormal thyroid function test On: :59 Request TSH (THYROID STIMULATING HORMONE) (16785)Indication: Abnormal thyroid function test On: :59 Request URINE KEE CULTURE-IDENTIFICATN (33830)Indication: Urinary frequency On: :29 Request HGB A1C (25440)Indication: Paresthesia of arm On: : Request HEPATITIS C ANTIBODY (77610)Indication: Paresthesia of arm On: :04 Request ELIJAH (ANTINUCLEAR ANTIBODY) (90908)Indication: Paresthesia of arm On: : Request Serum Protein Electrophoresis (SPEP) (22996)Indication: Paresthesia of arm On: : Request VITAMIN B-12 (CYANOCOBALAMIN) (29776)Indication: Paresthesia of arm On: :04 Request METABOLIC PANEL, COMPREHENSIVE (65701)Indication: Paresthesia of arm On: : Request CBC & PLATELETS (AUTO) (69608)Indication: Paresthesia of arm On: : Request T4, FREE (THYROXINE) (96370)Indication: Acquired hypothyroidism On: :21 Request TSH (THYROID STIMULATING HORMONE) (71175)Indication: Acquired hypothyroidism On: : Request T3, FREE (TRIDOTHYRONINE) (83714)Indication: Acquired hypothyroidism On: :21 Request Blood Glucose , Office (06814)Indication: Diabetes mellitus type II, controlled On: :33 Request Lipid Panel (40940)Indication: High triglycerides On: 4-Eun-508959:10 Request CALCIFEDIOL (97855)Indication: Osteopenia On: :51 Request CBC, Platelets & Auto Diff (78301)Indication: Hypertension On: :49 Request Lipid Panel (83567)Indication: Hypertension On: :49 Request Metabolic Panel, Comprehensive (05074)Indication: Hypertension On: Request Urinalysis, Office (74396)Indication: Hypertension On: 49 Request CALCIFEDIOL (76081)Indication: Vitamin D deficiency On: :55 Request TSH (THYROID STIMULATING HORMONE) (56806)Indication: Acquired hypothyroidism On: : Request CBC, Platelets & Auto Diff (93773)Indication: Diabetes mellitus type II, controlled On: :51 Request Metabolic Panel, Comprehensive (42016)Indication: Diabetes mellitus type II, controlled On: :51 Request Metabolic Panel, Comprehensive (75462)Indication: Fatty liver On: :24 Request PCZCD-GJAXLAFSNZS-CPAXV (19851)Indication: Fatty liver On: 67-Rsi-259688:23 Request serum free light chains (75858)Indication: Swelling of both lower extremities On: :53 Request UPEP (27129)Indication: Swelling of both lower extremities On: :53 Request urine immunofixation (42892)Indication: Swelling of both lower extremities On: 53 Request serum immunofixation (54073)Indication: Swelling of both lower extremities On: :53 Request URINALYSIS (57480)Indication: Swelling of both lower extremities On: :53 Request MICROALBUMIN: CREATININE RATIO (95285) AND (23586)Indication: Swelling of both lower extremities On: :53 Request BLOOD SMEAR, W/O MANUAL DIFF WBC (07046)Indication: Lymphadenopathy On: :45 Request LDH (LD) (LACTATE DEHYDROGENASE) (16767)Indication: Lymphadenopathy On: :42 Request ELIJAH (ANTINUCLEAR ANTIBODY) (23777)Indication: Lymphadenopathy On: :42 Request C-REACTIVE PROTEIN (86938)Indication: Lymphadenopathy On: :42 Request SED RATE ERYTHROCYTE ([id number])Indication: Lymphadenopathy On: 42-Omh-858937:42 Request METABOLIC PANEL, COMPREHENSIVE ([id number])Indication: Lymphadenopathy On: :42 Request CBC, Platelets & Auto Diff ([id number])Indication: Gingivitis On: 88-Ddj-596132:37 Request METABOLIC PANEL, COMPREHENSIVE ([id number])Indication: High triglycerides On: 72-Guv-027326:55 Request LIPID PANEL ([id number])Indication: High triglycerides On: 80-Huu-072897:55 Request TSH ([id number])Indication: Acquired hypothyroidism On: 60-Suv-889449:54 Request VITAMIN B-12 (CYANOCOBALAMIN) ([id number])Indication: Memory change On: :54 Request TSH ([id number])Indication: Acquired hypothyroidism On: 5-Bkq-840310:54 Request METABOLIC PANEL, COMPREHENSIVE ([id number])Indication: Diabetes mellitus type II, controlled On: 4-Bse-369788:53 Request CBC with auto diff ([id number])Indication: Diabetes mellitus type II, controlled On: 5-Byy-903918:53 Request LIPID PANEL ([id number])Indication: Diabetes mellitus type II, controlled On: 8-Iio-268702:53 Request MICROALBUMIN: CREATININE RATIO ([id number]) AND ([id number])Indication: Diabetes mellitus type II, controlled On: 3-Qav-329321:53 Request SED RATE ERYTHROCYTE ([id number])Indication: Fatigue On: 99-Glt-393544:51 Request C-REACTIVE PROTEIN ([id number])Indication: Fatigue On: 20-Vlx-448437:51 Request FERRITIN ([id number])Indication: Fatigue On: 00-Flu-126758:51 Request IRON ([id number])Indication: Fatigue On: 66-Lnm-564691:51 Request ALDOLASE ([id number])Indication: Fibromyalgia (Renamed from Diffuse myofascial pain syndrome) On: 02-Lkd-432028:51 Request Creatine Kinase Total ([id number])Indication: Fibromyalgia (Renamed from Diffuse myofascial pain syndrome) On: 02-Bbs-948685:51 Request SPEP ([id number])Indication: Fatigue On: 61-Ngb-014437:51 Request UPEP ([id number])Indication: Fatigue On: :51 Request FOLIC ACID SERUM ([id number])Indication: Fatigue On: :51 Request VITAMIN B-12 (CYANOCOBALAMIN) ([id number])Indication: Fatigue On: :51 Request URINALYSIS, W/ MICRO ([id number])Indication: Fatigue On: :50 Request METABOLIC PANEL, COMPREHENSIVE ([id number])Indication: Fatigue On: :50 Request Planned Procedures Ultrasound - RenalBy: Oscar ANGELES, On: 01-Mar-2018 Intent Anjelica Salguero CNP [facility] SCREENING DIGITAL TOMOSYNTHESIS OF On: 31-Jul-2017 Intent BREAST ([id number])By: sOcar ANGELES PalomaJasper Salguero CNP [facility] ELECTROCARDIOGRAM, COMPLETE (ECG) On: 02-May-2017 Intent ([id number])By: Anjelica Salguero CNP, CNP [facility] ELECTROCARDIOGRAM, COMPLETE (ECG) On: 23-Mar-2017 Intent ([id number])By: Oscar ANGELES PalomaJasper Salguero CNP [facility] DEXA SCAN AXIAL SKELETON ([id number])By: On: 23-Jan-2017 Intent Oscar ANGELES PalomaJasper Salguero CNP [facility] Ear Irrigation ([id number])By: Oscar On: 17-Oct-2016 Intent KARTHIK PalomaJasper Salguero CNP [facility] Wax CurettesBy: Anjelica Salguero CNP On: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 out of house and be more active - she is eating better and doing whey protein and feeling more energy and moving alot betterEncounter Diagnosis: Fatigue, Fibromyalgia (Renamed from Diffuse myofascial pain syndrome), Swelling of Limb (Renamed from Limb swelling) [facility] Phone Encounter On: 07-Jul-2014 15:23 Encounter Diagnosis: arthritis,unspecified (716.90) End: 07-Jul-2014 15:57 [facility] Office Visit On: 07-Jul-2014 14:31 Encounter Reason: Edema - The onset of the edema has been gradual and has been occurring in a persistent pattern for years. The course has been increasing. The edema is described as being located in both lower extremitie End: 09-Jul-2014 22:19 s. The symptoms have been associated with chest pain (but pt is being worked up by her cardio right now and doing a stress test) and dyspnea, while the symptoms have not been associated with abdominal p ain, hypertension, redness or wheezing. Note for Edema: she has hx of psoriatic arthritiis- was on methotrexate was taken off due to side effects- was also on humira and was having issues with this- - was getting more swelling and sob - saw Cardio- Dr jhaveri- and had echo ok - and is having stress test- - xhe has been off humira since 2 months- maybe initially some improvment but now worse again- owusu d tsh done was 28 - so endo changed her meds= switched her to tirosen- and now tsh is normal - Gurjit Wayne - she was checked again for adrenal insuff and supposedly ok- had in past from too many steroid i njections - drinks muscle milk- grapefruit- grain cereal- peanut butter - no meat some cheese ukrainian yogurt- saw [facility] and ordered sleep study at home- they are doing it shortly- no leg dopplers - had em g/ncs- but not great test but hard to do with edema but told was ok , [ADDITIONAL REASON] Leg pain - The leg pain began gradually over time and has been occurring for 7 y ears. The symptoms have been occurring in an increasing pattern. The symptoms are described as a burning sensation, pain (throbbing) and piercing pain and are moderate to severe. There is involvement o f the lower extremities (both). There has been no associated paresthesias, numbness and tingling in toes or fever. Note for Leg pain: been on pain meds for years had emg/ncs - Dr Dee rosenthal pain sp ecilaist-- - had mri spine- lumbar- and mild degenerative arthritiis so just had thoracici mri and this is pending - feels weakness in both legs and both legs numbness and feels like something moving in thighs - - pain both legs worse in left- Encounter Diagnosis: Fibromyalgia (Renamed from Diffuse myofascial pain syndrome), Fatigue, Swelling of Limb (Renamed from Limb swelling), Limb pain (729.5) [facility] Payers Anil Longo; a guarantor
--- OUTSIDE RECORDS SUMMARY | 2018-05-15 06:19 | XMS RPT_ITS | Continuity of Care Document ---
:1950 Author Organization [facility] Address [address] [facility] [address] [place] [address] Phone Care Team Providers Name Role Phone Sydneefer KARTHIK, Paloma Unavailable Mason Garnett Unavailable Neftaly Rose MD Unavailable Garth GARZA, Yaniv King Unavailable Slarb PREMIX OPERATOR CONCENTRATE, Dora Unavailable Unavailable Long PREMIX OPERATOR CONCENTRATE, Bina L Unavailable Unavailable Tiesha Avina Unavailable Unavailable Unavailable Unavailable Problems Name Dates Details Abdominal pain, acute, left lower quadrant (Renamed from Acute abdominal pain in left lower quadrant) (R10.32, 789.04) Status: Active Abnormal CXR (R93.89, 793.2) Status: Active Abnormal TSH (R79.89, 790.6) Comments: was 0.08 in Nov now 18.99 labs done at [facility] will repeat with our lab today and send to Dr. Gurjit Wayne was put on Tirosint Status: Active Acquired hypothyroidism (E03.9, 244.9) Comments: Seeing Dr. Lobato in [place] on tircent they monitor Status: Active Allergic rhinitis (J30.9, 477.9) Status: Active Arthritis (M19.90, 716.90) Status: Active Back pain (M54.9, 724.5) Comments: Sees Dr Alvarez, thinking of pain stimulator Status: Active BMI 32.0-32.9,adult (Z68.32, V85.32) Status: Active BMI 32.0-32.9,adult (Z68.32, V85.32) Status: Active Breast cancer screening (Z12.31, V76.10) Status: Active Chest pain (R07.9, 786.50) Comments: chest pressure yesterday and thick throat took antacid, rt shoulder radiation no pain in office, ekg ok send to Dr. Garth canela new cardiologistDr. Skyler Santos retired Status: Active [facility] arthritis (M19.90, 716.94) Comments: seen by Dr. Kwan Status: Active Deliveries (Parity) Comments: 3. Status: Active Depression (F32.9, 311) Comments: Sees Dr. 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 Status: Active Psoriasis (L40.9, 696.1) Status: Active Psoriatic arthritis (L40.50, 696.0) Comments: Saw Nicole not on humira not following any one now, had side effects from Humira Status: Active Rosacea (L71.9, 695.3) Status: Active [...] Diagnosis Status: Active Unspecified Diagnosis Status: Active UTI symptoms (R39.9, 788.99) Comments: has interstitial cystitis Status: Active Vitamin D deficiency (E55.9, 268.9) Status: Active Medications Name Dates Details CLONAZEPAM, 2MG (Oral Tablet) 1 (one) Tablet Tablet q hs for 30 days Quantity: 30 {Tablet} Refills: 0 Ordered:11-Aug-2014 Fast DO, Arabella A Start : 07-Jul-2014 Active CULTURELLE (Oral Capsule) 1 cap daily Active Cyclobenzaprine HCl 10 MG Oral Tablet 1 (one) Tablet qhs for 30 days Quantity: 30 {Tablet} Refills: 0 Ordered:14-Jul-2016 Anjelica Salguero CNP, CNP, Mary E Start : 14-Jul-2016 Active Comments:Dr Kim Arshad 2-Alfredo 0.3 MG/0.3ML Injection Solution Auto-injector 1 (one) Soln Auto-inj Soln Auto-inj as needed for 0 days Quantity: 1 {Dose_Pack} Refills: 1 Ordered:14-Jul-2016 Anjelica Salguero CNP, CNP, Mary E Start : 14-Jul-2016 Active Comments:Medication taken as needed. Generic Please Flonase Allergy Relief 50 MCG/ACT Nasal Suspension 2 (two) [place] daily for 0 days Quantity: 1 {[place]} Refills: 0 Ordered:02-Nov-2017 Anjelica Salguero CNP, CNP, Mary E Start : 02-Nov-2017 Active Metoprolol Succinate ER 50 MG Oral Tablet Extended Release 24 Hour 1 (one) Tablet daily for 0 days Quantity: 30 {Tablet} Refills: 0 Ordered:02-Nov-2017 Anjelica Salguero CNP, CNP, Mary E Start : 02-Nov-2017 Active Comments:Endo Morphine Sulfate 15 MG Oral Tablet 1 qd (15 MG) Active PredniSONE 10 MG Oral Tablet 1 (one) Tablet bid x 3 days, daily x 3 days, 1/2 x 3days for 0 days Quantity: 11 {Tablet} Refills: 0 Ordered:02-Nov-2017 Anjelica Salguero CNP, CNP, Mary E Start : 02-Nov-2017 Active Comments:with food Tetracycline HCl 500 MG Oral Capsule 1 (one) Capsule daily for 0 days Quantity: 30 {Capsule} Refills: 0 Ordered:02-Nov-2017 Anjelica Salguero CNP, CNP, Mary E Start : 02-Nov-2017 Active Tirosint 100 MCG Oral Capsule 2 q am sunday through sunday and 1 on sunday and sunday (100 MCG) Active TRAZODONE HCL, 300MG (Oral Tablet) 1 (one) Tablet Tablet q hs for 30 days Quantity: 30 {Tablet} Refills: 0 Ordered:11-Aug-2014 Fast DO, Arabella A Start : 07-Jul-2014 Active VITAMIN B12, 100MCG (Oral Tablet) 1 tab daily (100 MCG) Active VITAMIN B-COMPLEX (Oral Tablet) 1 tab daily Active Vitamin D3 Super Strength 2000 UNIT Oral Capsule 1 (one) Capsule daily for 0 days Quantity: 30 {Capsule} Refills: 0 Ordered:17-Oct-2016 Anjelica Salguero CNP, CNP, Mary E Start : 17-Oct-2016 Active Cheratussin AC 100-10 MG/5ML Oral Syrup 4 Milliliter qhs prn cough for 0 days Quantity: 120 {Milliliter} Refills: 0 Ordered:31-Jul-2017 Bina Liriano LPN Start : 01-May-2017 End : 31-Jul-2017 Inactive Doxycycline Hyclate 100 MG Oral Tablet Delayed Release 1 (one) Tablet DR bid for 10 days Quantity: 20 {Tablet} Refills: 0 Ordered:23-Nov-2015 Anjelica Salguero CNP, CNP, Mary E Start : 23-Nov-2015 End : 03-Dec-2015 Inactive Embeda 20-0.8 MG Oral Capsule Extended Release 1 (one) Capsule daily per Dr Basali for 30 days Quantity: 30 {Capsule} Refills: 0 Ordered:31-Jul-2017 Long PREMIX OPERATOR CONCENTRATEJoeyn L Start : 01-May-2017 End : 31-Jul-2017 Inactive Fenofibrate Micronized 67 MG Oral Capsule 1 (one) Capsule once daily with a meal for 0 days Quantity: 90 {Capsule} Refills: 0 Ordered:31-Jul-2017 Heri PREMIX OPERATOR CONCENTRATE, Bina L Start : 01-May-2017 End : 31-Jul-2017 Inactive Macrobid 100 MG Oral Capsule 1 (one) Capsule bid for 7 days Quantity: 14 {Capsule} Refills: 0 Ordered:17-Oct-2016 Oscar ANGELES, Anjelica Moody CNP, Anjleica Hutchinson Start : 17-Oct-2016 End : 24-Oct-2016 Inactive MetroNIDAZOLE 250 MG Oral Tablet 1 (one) Tablet tid for 7 days Quantity: 21 {Tablet} Refills: 0 Ordered:12-Nov-2015 Oscar ANGELES, Anjelica Moody AMPOULE FILLER AND SEALER, Anjelica Hutchinson Start : 12-Nov-2015 End : 19-Nov-2015 Inactive Omeprazole 40 MG Oral Capsule Delayed Release 1 (one) Capsule Capsule daily for 0 days Quantity: 30 {Capsule} Refills: 3 Ordered:31-Jul-2017 Heri Joey GREENn L Start : 23-Mar-2017 End : 31-Jul-2017 Inactive PROLIA, 60MG/ML (Subcutaneous Solution) 1 inj q 6 months (60 MG/ML) Inactive PROzac 10 MG Oral Capsule 1 (one) Capsule Capsule twice weekly for 30 days Quantity: 15 {Capsule} Refills: 0 Ordered:14-Jul-2016 Oscar ANGELES, Anjelica Moody AMPOULE FILLER AND SEALER, Anjelica Hutchinson Start : 14-Jul-2016 End : 13-Aug-2016 Inactive SAVELLA, 50MG (Oral Tablet) 1 (one) Tablet Tablet bid for 90 days Quantity: 180 {Tablet} Refills: 3 Ordered:08-Sep-2015 Nemo Johnson Start : 26-Feb-2015 End : 08-Sep-2015 Inactive VESICARE, 10MG (Oral Tablet) 1 (one) Tablet qd for 30 days Quantity: 30 {Tablet} Refills: 0 Ordered:12-Nov-2015 Arabella Parish DO Start : 08-Sep-2015 End : 08-Oct-2015 Inactive Zofran ODT 4 MG Oral Tablet Disintegrating 1 (one) Tablet Tablet bid with antibiotic prn nausea for 0 days Quantity: 20 {Tablet} Refills: 0 Ordered:31-Jul-2017 Heri GREEN Bina L Start : 17-Oct-2016 End : 10-Apr-2018 Inactive HUMIRA, 40MG/0.8ML (Subcutaneous Kit) 1 (one) Kit once monthly for 30 days Quantity: 30 Kit Refills: 0 Ordered:11-Aug-2014 Estrella Snell Start : 07-Jul-2014 End : 11-Aug-2014 Discontinued HYDROmorphone HCl 2 MG Oral Tablet 1 (one) Tablet Tablet tid for 30 days Quantity: 90 {Tablet} Refills: 0 Ordered:14-Jul-2016 SlaDora bonilla LPN Start : 25-Sep-2014 End : 14-Jul-2016 [...] tid (10 MG) End : 25-Sep-2014 Discontinued SAVELLA TITRATION PACK, 12.5 & 25 & [...] days Quantity: 20 {Tablet} Refills: 0 Ordered:25-Jan-2016 SlaDora bonilla LPN Start : 23-Nov-2015 End : 25-Jan-2016 [...] Total Completed Comments: adenomyosis and polycystic ovaries- Date Value Details 22-Aug-2017 SCREENING MAMM (CAD), BILAT Result: Comments: See Note; NOTES: [facility] Imaging Services [address] [place] [address] SCREENING MAMM (CAD), BILAT MR#: [id number] Acct: [id number] Name: SADIA LONGO Rep #: [id number] : 1950 F 66 From: Xu Davila MD PCP: Anjelica Salguero NP Status: REG CLI Study: SCREENING MAMM (CAD), BILAT Date of Exam: 08/22/17 Exam# [id number] Ordering Dr: Anjelica Salguero MAMMO GRAPHY - [...] biopsy of a clinically suspicious abnorm ality. [id number] Electronically Signed: Xu Davila MD at 9:48 EDT Tel [phone], Service support , CC: Anjelica Salguero NP Preparation Operator: Signed 15-Jun-2017 Echocardiogram Complete Result: Comments: See Note; NOTES: [facility] Cardiovascular Services [address] [place] [address] Echo Complete 06/15/17 0933 MR#: [id number] Acct: [id number] Name: SADIA LONGO Rep #: [id number] : 1950 66 From: Yaniv Liang MD Attending Dr: Yaniv Liang MD Status: REG CLI Ordering Dr: Yaniv Liang MD Date: 06/15/17 Location: [facility] Sex: F C Admitted: Reason Fo r [...] Date Yaniv Liang MD CC: Anjelica Salguero EDITOR BOOK; Yaniv mera MD Date Dictated: 06/15/1733 Date Transcribed: 06/15/171642 Preparation Operator: Signed 15-Jun-2017 Stress Report Result: Comments: See Note; NOTES: [facility] Cardiovascular Services [address] [place] [address] MR#: [id number] Acct: [id number] Name: SADIA LONGO Rep #: [id number] : [birth year] 66 From: Yaniv Liang MD [...] of 92%. This note was generated with Supernova software. It may contain incorrect words, spelling, and punctuation that were not noted in checking the note before signing. 8 1019 <Electronically signed by Yaniv Liang MD> Date Yaniv Liang MD CC: Anjelica Salguero NP; Yaniv Liang MD Date Dictated: 06/15/17 1014 Date Transcribed: 06/15/17 1014 Preparation Operator: PM Signed 13-Jun-2017 Lumbar Spine 2 or 3 Views Result: Comments: See Note; NOTES: [facility] Imaging Services [address] [place] [address] Lumbar Spine 2 or 3 Views MR#: [id number] Acct: [id number] Name: SADIA LONGO Rep #: [id number] : 1950 F 66 From: Robert Saba DO PCP: Anjelica Salguero NP Status: REG CLI Study: Lumbar Spine 2 or 3 Views Date of Exam: 06/13/17 Exam# [id number] Ordering Dr: Yung Alvarez MD STUDY: X-RAY [...] , Service support , CC: Anjelica Salguero EDITOR BOOK; Yung Alvarez MD Preparation Operator: Signed 31-May-2017 Cardiology Visit Report Result: Comments: See Note; NOTES: [facility] [address] [place] [address] OFFICE VISIT Date of Service: 05/31/17 MR#: [id number] Acct: [id number] Name: SADIA LONGO Rep #: [id number] : 1950 Provider: Yaniv Liang MD Age/Sex: 66/F [place] [facility] [place]: Signed HPI HPI Details: SADIA LONGO, is a 66 F who presents to the office today for for outpatien t cardiovascular consultation based on concerns of shortness of breath/dyspnea, chest discomfort, and fatigue superimposed upon a reported history of underlying CAD. She states she has previously been e valuated by Dr. Murray Patterson of cardiology in the [place], [place] area. She notes in the past [...] study performed in June 2014 via the [facility] system. According to the report s available [...] of non-cardiovascular issues. Based upon notes from [facility] from 06/16/2012 it appears at that [...] 60 mg/mL subcutaneous syringe 60 mg SC [id number] 05/30/17 [Hi story Confirmed 05/31/17] epinephrine 0.3 [...] mg PO QDAY 05/31/17 [History Confirmed ] [facility] Medical History Palpitations (Acute) SOB (shortness [...] to this approach. Follow Up 6 Weeks (PA/EDITOR BOOK) Coding Level of Care Code Off vis,new,level 4 Diagnoses Chest pain, unspecified type R07.9 Chest pain type: unspecified Shortness of breath R06.02 Fatigue, un specified type R53.83 Fatigue type: unspecified Palpitations R00.2 Mitral valve prolapse I34.1 Hypertension, unspecified type I10 Hypertension type: unspecified Coding Level of Care Code Off vis,new,l evel 4 Diagnoses Chest pain, unspecified type [...] NP 31-May-2017 12 Lead EKG performed by BMS Result: Comments: See Note; NOTES: [facility] [address] [place] [address] 12 Lead EKG performed by BMS 05/31/17 1413 MR#: [id number] Acct: [id number] Name: SADIA LONGO Rep #: [id number] : 1950 66 From: Yaniv Liang MD Attending Dr: Yaniv Liang MD Status: DEP [facility] Ordering Dr: Yaniv Liang MD Date: 05/31/17 Location[place] [facility] [place] Sex: F C Admitted: BMS/12 [place] [facility] [place] Report Interpretation Sinus Rhythm Poor R wave progressionElectronically signed on 05/31/2017 at 16:10 by Esvin Liang 05/31/17 1612 Date Yaniv Liang MD CC: Anjelica Salguero NP Date Dictated: 05/31/17 1413 Date Transcribed: 05/31/171412 Preparation Operator: PM Signed 29-Mar-2017 Emergency Department Summary Result: Comments: See Note; NOTES: [facility] Medical Records Department [address] [place] [address] Emergency Department Summary MR#: [id number] Acct: [id number] Name: RAMAKRISHNA LONGO Rep #: [id number] : 1950 66 From: Liam Whalen MD [...] COURSE: The patient w as treated with [place], placed in a walking boot. TREATMENT PLAN: The patient will be discharged with instructions to follow up with slitter and rewinder machine operator in 1 week if not improving. DISPOSITION: Home, improved, stable condition. IMPRESSION: Left foot sprain. MD Dennis Medina C: Anjelica Salguero T: NTS JOB: [id number] 03/29/17 0650 <Electronically signed by Liam Whalen MD> Date _ Liam Whalen MD Cosigner Signature (If Indicated): Date CC: Anjelica Salguero EDITOR BOOK Date Dictated: 03/23/172102 D ate Transcribed: 03/23/172102 Preparation Operator: Signed 13-Feb-2017 Dexa Bone Density Study (HP) Result: Comments: See Note; NOTES: [facility] Imaging Services [address] [place] [address] Dexa Bone Density Study (HP) MR#: [id number] Acct: [id number] Name: SADIA LONGO Rep #: [id number] : 1950 F 66 From: Xu Davila MD PCP: Anjelica Salguero Status: REG CLI Study: Dexa Bone Density Study (HP) Date of Exam: 02/13/17 Exam# [id number] Ordering Dr: Anjelica Salguero STUDY: DUAL ENERGY [...] Xu Davila MD at 14:52 EDT Tel [phone], Service support , CC: Anjelica Salguero Preparation Operator: Signed 26-Jan-2017 Spine Lumbar (Routine) Result: Comments: See Note; NOTES: [facility] Imaging Services [address] [place] [address] Spine Lumbar (Routine) MR#: [id number] Acct: [id number] Name: SADIA LONGO Rep #: [id number] : 1950 F 66 From: Mason Gilliam MD PCP: Anjelica Salguero Status: REG CLI Study: Spine Lumbar (Routine) Date of Exam: 01/26/17 Exam# [id number] Ordering Dr: Yung Alvarez MD STUDY: MRI [...] Tel , Service support , CC: Anjelica Salguero; Yung Alvarez MD Preparation Operator: Signed 02-Mar-2016 Cerv Spine 2 or 3 Views Result: Comments: See Note; NOTES: [facility] Imaging Services [address] [place] [address] Verdana 4d Cerv Spine 2 or 3 Views MR#: [id number] Acct: [id number] Name: SADIA LONGO Rep #: [id number] : 1950 F 65 From: Marshall Landaverde DO PCP: Anjelica Salguero Status: REG CLI Study: Cerv Spine 2 or 3 Views Date of Exam: 03/02/16 Exam# [id number] Ordering Dr: Yung Alvarez MD STUDY : [...] Marshall Landaverde DO at 23:01 EST Tel [phone], Service support [phone], CC: Anjelica Salguero; Yung Alvarez MD Preparation Operator: Signed 02-Mar-2016 Lumbar Spine 2 or 3 Views Result: Comments: See Note; NOTES: [facility] Imaging Services [address] [place] [address] Verdana 4d Lumbar Spine 2 or 3 Views MR#: [id number] Acct: [id number] Name: SADIA LONGO Rep #: [id number] : 1950 F 65 From: Marshall Landaverde DO PCP: Anjelica Salguero Status: REG CLI Study: Lumbar Spine 2 or 3 Views Date of Exam: 03/02/16 Exam# [id number] Ordering Dr: Yung Alvarez MD S TUDY: [...] tissue structures are unremarkable. ORD ER #: [id number] RAD/Lumbar Spine 2 or 3 Views IMPRESSION: Stable degenerative changes of the lumbar spine. Electronically Signed: Marshall Landaverde at 23:10 EST Tel [phone], Service support [phone], CC: Anjelica Salguero; Yung Alvarez MD Preparation Operator: Signed 16-Nov-2015 Liver Result: Comments: See Note; NOTES: [facility] Imaging Services [address] [address] Verdana 4d Liver MR#: [id number] Acct: [id number] Name: SADIA LONGO Rep # : [id number] : 1950 F 64 From: Arpyl Melendez MD PCP: Arabella Parish DO Status: REG CLI Study: Liver Date of Exam: 11/16/15 Exam# [id number] Ordering Dr: Anjelica Salguero STUDY: ABDOMINAL ULTRASOU [...] hydronephrosis. CC: Anjelica Salguero; Arabella Parish DO Preparation Operator: Signed 16-Nov-2015 Liver Result: Comments: See Note; NOTES: [facility] Imaging Services [address] [place] [address] Dineshdana 4d Liver MR#: [id number] Acct: [id number] Name: SADIA LONGO Rep # : [id number] : 1950 F 64 From: Apryl Melendez MD PCP: Arabella Parish DO Status: REG CLI Study: Liver Date of Exam: 11/16/15 Exam# [id number] Ordering Dr: Anjelica Salguero STUDY: ABDOMINAL ULTRASOU [...] at 8:20 EDT Tel , Service support [phone], CC: Anjelica Sydneefer; Arabella Parish DO Preparation Operator: Signed 03-Sep-2015 Kidney and Bladder Result: Comments: See Note; NOTES: [facility] Imaging Services [address] [place] [address] Verdana 4d Kidney and Bladder MR#: [id number] Acct: [id number] Name: LISA LONGO Rep #: [id number] : 1950 F 64 From: Bonilla Belle DO PCP: Arabella Parish DO Status: REG CLI Study: Kidney and Bladder Date of Exam: 09/03/15 Exam# [id number] Ordering Dr: Cosmo Martin MD STUDY: RENAL [...] Bonilla Belle DO at 23:38 EDT Tel [phone], Service support [phone], CC: Arabella Parish DO; Cosmo Martin MD Preparation Operator: Signed 23-Jul-2015 Bilat Scrn Digital AND CAD Result: Comments: See Note; NOTES: [facility] Imaging Services [address] [place] [address] Verdana 4d Bilat Scrn Digital AND CAD MR#: [id number] Acct: [id number] Name: SADIA LONGO Rep #: [id number] : 1950 F 64 From: Xu Davila MD PCP: Arabella Parish DO Status: REG CLI Study: Bilat Scrn Digital AND CAD Date of Exam: 07/23/15 Exam# [id number] Boogie phan Dr: Arabella Parish DO MAMMOGRAPHY [...] bio psy of a clinically suspicious abnormality. [id number] Electronically Signed: Xu Davila MD at 13:17 EDT Tel [phone], Service support [phone], CC: Arabella Parish DO Preparation Operator: Signed 08-Jun-2015 Chest PA and Lateral Result: Comments: See Note; NOTES: [facility] Imaging Services [address] [place] [address] Verdana 4d Chest PA and Lateral MR#: [id number] Acct: [id number] Name: SADIA LONGO Rep #: [id number] : 1950 F 64 From: Brock Wright MD PCP: Arabella Parish DO Status: REG CLI Study: Chest PA and Lateral Date of Exam: 06/08/15 Exam# [id number] Ordering Dr: Rasta Parish DO STUDY: X-RAY [...] FACR at 20:39 EST , Service support [phone], RAD/Chest PA and Lateral IMPRESSION: Mild interstitial changes in the lower lobes. No acute infiltrates or pleural effusions noted Electronically Signed: Brock Wright MD, FACR at 20:39 ES T , Service support [phone], CC: Arabella Parish DO Preparation Operator: Signed 04-Jun-2015 Abdomen/Pelvis without Cont Result: Comments: See Note; NOTES: [facility] Imaging Services [address] [place] [address] Verdana 4d Abdomen/Pelvis without Cont MR#: [id number] Acct: [id number] Name: SADIA LONGO Rep #: [id number] : 1950 F 64 From: Bonilla Belle DO PCP: Arabella Parish DO Status: REG CLI Study: Abdomen/Pelvis without Cont Date of Exam: 06/04/15 Exam# [id number] Ordering Dr: Arabella Gaming DO STUDY: CT [...] Bonilla Belle DO at 19:11 EST Tel [phone], Service support , CC: Arabella Parish DO Preparation Operator: Signed 27-Jul-2014 Sleep Study Report Result: Comments: See Note; NOTES: [facility] [address] [place] [address] Unattended Sleep Study MR#: [id number] Acct: [id number] Name: SADIA LONGO ep #: [id number] : 1950 63 From: Mason Garnett MD PCP: Arabella Parish DO Status: REG CLI Ordering Dr.: Mason Garnett MD Date: 07/21/14 Sex: F C APNEA LINK PORTABLE POLYSOMNOGRAM: [facility] PHYS[facility]IAN: Dr. Mason Garnett. SLEEP HISTORY: The patient is a 63-year-old female with a calculated body mass index of 28.6 and an Liguori Sleepiness Scale score of 20/24. The patient [...] version). Please note that a reference to [facility] AHI in this report is consistent with the current Hypopnea definition according to Medicare Criteria and an AAS AHI reference is consistent with the current [...] subjective complaints, and elevated score on the Liguori Sleepiness Scale are not explained by the [...] INTERPRETING PHYSICIAN: Mason Garnett Jr., MD CC: Maosn Garnett MD 1410 1709 07/27/14 1219 <Electronically [...] smoker Vital Signs Date Test Result Details :11 Temperature 97.6 f Pulse 78 /min [...] kg/m2 Body Surface Area Calculated 1.76 m2 :51 Temperature 99.1 f Pulse 108 /min Comments: [...] 1.75 m2 Results Date Description Value Details :54 Blood Glucose , Office (26414) Blood Glucose , Office 109 (Normal) :54 HgA1C , Office (23337) HgA1C , Office 5.4 % (Normal) Range: 4.6 - 7.1 :10 Miscellaneous Lab Procedure Comments: Test(s) [facility]: [id number] [address] [place], [place], [address] [facility] [place] Comments: [id number] 6+OXYCODONE-BUND (ng/mL)DRUG RESULT SCREEN CUTOFF____ Amphetamines,Urine Negat [...] includes Oxydodone and Oxymorphone. [facility]. ORIGINAL REPORT ON FILE IN LAB CONTAINS AD DITIONAL TEST SITE INFORMATION. 86-Zoq-730895:10 Urine Drug Screen (VISTA) Comments: List of Drugs Taken or Suspected? .[facility] [address] [place], [place], [id number] THC POSITIVE (Abnormal) PCP NEGATIVE (Normal) OPIATES [...] MUST BE ORDERED SEPARATELY. USE TESTMNEMONIC: [facility] 08-Sdx-736738:33 HgA1C , Office (67614) HgA1C , Office 5.4 % (Normal) Range: 4.6 - 7.1 :45 CPK MB FRACTION (16148) Comments: PATIENT WAS FASTINGPERFORMED BY: [facility] [id number] Creatine Kinase (CK), MB 2.0 ng/mL (Normal) Range: 0.0-5.3 :45 ASSAY, TROPONIN, QUANTITATIVE Comments: PATIENT WAS FASTINGPERFORMED BY: [facility] [facility] [id number] (aka Troponin I) (88509) Troponin I <0.01 ng/mL (Normal) Range: 0.00-0.04 90-Zyd-541110:45 LIPID PANEL (42499) Comments: PATIENT WAS FASTINGPERFORMED BY: [facility] [id number] LDL/HDL Ratio 1.4 {ratio_units} (Normal) Range: 0.0-3.2 Comments: LDL/HDL Ratio Men Women 1/2 Avg.Risk 1.0 1.5 Av g.Risk 3.6 3.2 2X Avg.Risk 6.2 5.0 3X Avg.Risk 8.0 6.1 LDL Cholesterol Calc 94 mg/dL (Normal) Range: 0-99 VLDL Cholesterol Mike 21 mg/dL (Normal) Range: 5-40 HDL Cholesterol 66 mg/dL (Normal) Triglycerides 107 mg/dL (Normal) Range: 0-149 Cholesterol, Total 181 mg/dL (Normal) Range: 100-199 76-Fxm-768730:34 CBC, Platelets & Auto Diff Comments: PATIENT WAS FASTINGPERFORMED BY: [facility]Mar[facility]6370 [facility] [id number] (30924) Immature Grans (Abs) 0.0 {x10E3/uL} (Normal) Range: [...] 3.77-5.28 WBC 6.9 {x10E3/uL} (Normal) Range: 3.4-10.8 4-Aly-875794:33 HgA1C , Office (54454) HgA1C , Office 5.3 % (Normal) Range: 4.6 - 7.1 :33 Blood Glucose , Office (86651) Blood Glucose , Office 96 (Normal) 4-Rtv-865402:24 CBC With Differential/Platelet Comments: PATIENT NOT FASTINGPERFORMED BY: [facility] Utdbey7996 [facility] [id number] Immature Grans (Abs) 0.0 {x10E3/uL} (Normal) Range: [...] 3.77-5.28 WBC 8.8 {x10E3/uL} (Normal) Range: 3.4-10.8 7-Sps-656830:24 Comp. Metabolic Panel (14) Comments: PATIENT NOT FASTINGPERFORMED BY: LabCoVirtua MarltonFrjqlf0373 [facility] [id number] ALT (SGPT) 18 [iU]/L (Normal) Range: 0-32 [...] Glucose, Serum 102 mg/dL (Abnormal) Range: 65-99 2-Hzx-523243:24 Lipid Panel With LDL/HDL Comments: PATIENT NOT FASTINGPERFORMED BY: [employer] Xjevti3732 [facility] [id number] Ratio LDL/HDL Ratio 2.1 {ratio_units} Range: 0.0-3.2 [...] ng/mL (Abnormal) Comments: PATIENT NOT FASTINGPERFORMED BY: [employer] Flojgm2155 [facility] [id number] 3:24 Range: 30.0-100.0 Comments: Vitamin D deficiency has been defined by the [place] of[place] [facility] Centercine and an Endocrine Society practice guideline as alevel of serum 25-OH vitamin D less than 20 ng/mL (1,2).The Endocrine Society went on to further define vitamin Dinsufficiency as a level between 21 and 29 ng/mL (2).1. IOM ([place] of Medicine). 2010. Dietary reference intakes for calcium and D. [place]: The National Academies Press.2. Rodolfo MF, Dwight HELTON, Zeke OWUSU, et al. Evaluation, treatment, and prevention of vitamin D deficiency: an Endocrine Society clinical practice guideline. JCEM. 2010; 96(7):1911-30. 7-Fek-189721:58 MICROALBUMIN: CREATININE RATIO Comments: PATIENT NOT FASTINGPERFORMED BY: [facility] Nnwqbk8537 Neli [facility] [id number] (05407) AND (77681) Microalb/Creat Ratio 14.5 {mg/g_creat} (Normal) Range: 0.0-30.0 Microalbumin, Urine 4.1 ug/mL (Normal) Creatinine, Urine 28.2 mg/dL (Normal) 8-Hni-179320:18 Miscellaneous Lab Procedure Comments: Comments: 797323 URINE DRUGTest(s) Ordered: 696606 [facility] [address]kngcf[address] [place], [address] [facility] [place]: [id number] 6+OXYCODONE-BUND (ng/mL)DRUG RESULT SCREEN CUTOFF____ Amphetamines,Urine Negat [...] Oxydodone and Oxymorphone. ____ TESTING PERFORMED AT [facility]. ORIGINAL REPORT ON FILE IN LAB CONTAINS ADDITIONAL TEST SITE INFORMATION. 3-Ryc-289203:18 Urine Drug Screen (VISTA) Comments: Comments: 500369 URINE DRUGList of Drugs Taken or Suspected? [facility] [address] [place], [address] THC NEGATIVE (Normal) PCP NEGATIVE (Normal) OPIATES [...] TESTING MUST BE ORDERED SEPARATELY. USE TESTMNEMONIC: [facility] 19-Muq-954534:14 HGB A1C (36462) Comments: PATIENT NOT FASTINGPERFORMED BY: [employer] Btiabn2981 [facility] [id number] Hemoglobin A1c 5.6 % (Normal) Range: 4.8-5.6 Comments: . Pre-diabetes: 5.7 - 6.4 Diabetes: >6.4 Glycemic control for adults with diabetes: <7.0 :11 URINE KEE CULTURE-IDENTIFICATN Comments: PATIENT NOT FASTINGPERFORMED BY: [facility]6370 [facility] [id number] Information: SRC:UC (99704) Antimicrobial MIHEAD (Normal) Comments: S = Susceptible; [...] mL (Abnormal) Urine Final report Culture,Comprehensive (Abnormal) 82-Vmq-521129:42 Urinalysis, Office (04656) UA - LEUKOCYTE ESTERASE Moderate (Normal) UA - NITRITE Negative (Normal) URINE UROBILINGN DENISE TIMED Normal mg/dL (Normal) UA - PROTEIN Negative mg/dL (Normal) UA - PH 5 (Abnormal) UA - BLOOD Hemolyzed Small (Normal) UA - SPECIFIC GRAVITY 1.025 (Normal) UA - KETONES Negative mg/dL (Normal) UA - BILIRUBIN Negative (Normal) UA - GLUCOSE Negative (Normal) 12-Fgm-402522:58 URINE KEE CULTURE-IDENTIFICATN Comments: PATIENT NOT FASTINGPERFORMED BY: [facility] Rcaqqg6094 [facility] [id number] Information: SRC:SHAZIA (85618) Antimicrobial MIHEAD (Normal) Comments: S = Susceptible; [...] mL (Abnormal) Urine Final report Culture,Comprehensive (Abnormal) 60-Qzi-220493:45 Urinalysis, Office (70681) UA - LEUKOCYTE ESTERASE Small (Normal) UA - NITRITE Negative (Normal) URINE UROBILINGN DENISE TIMED Normal mg/dL (Normal) UA - PROTEIN Negative mg/dL (Normal) UA - PH 6 (Abnormal) UA - BLOOD Hemolyzed Small (Normal) UA - SPECIFIC GRAVITY 1.030 (Abnormal) UA - KETONES Moderate mg/dL (Normal) UA - BILIRUBIN Small (Normal) UA - GLUCOSE Negative (Normal) 62-Csz-142345:30 Miscellaneous Lab Procedure Comments: Test(s) Ordered: lc 804938, [facility]INE [facility]XICOLOGYC[facility] Ddtwftzdpv7[address] [place], [phone] [facility] Comments: 849441 6+OXYCODONE-BUND (ng/mL)DRUG RESULT SCREEN CUTOFF____ Amphetamines Negat [...] IN LAB CONTAINS ADDITIONAL TEST SITE INFORMATION. 02-Wms-063559:30 Urine Drug Screen (VISTA) Comments: List of Drugs Taken or Suspected? [facility] Bkfdwtqrqu1489 D[place] [place], [phone] THC POSITIVE (Abnormal) PCP NEGATIVE (Normal) OPIATES [...] TESTING MUST BE ORDERED SEPARATELY. USE TESTMNEMONIC: [facility] :48 TSH (THYROID STIMULATING Comments: PATIENT NOT FASTINGPERFORMED BY: [employer] Tmigkw4961 [facility] [id number] HORMONE) (94089) TSH 13.590 {uIU/mL} (Abnormal) Range: 0.450-4.500 :35 TSH (THYROID STIMULATING Comments: PATIENT NOT FASTINGPERFORMED BY: [employer]ingly [employer] Lrcaeu0650 [facility] [id number] HORMONE) (67020) TSH 0.080 {uIU/mL} (Abnormal) Range: 0.450-4.500 :35 CXQRD-YLFBKDSAFCP-QGCWO (48533) Comments: PATIENT NOT FASTINGPERFORMED BY: [facility] Brfcos6141 [facility] [id number] AFP, Serum, Tumor Marker 2.7 ng/mL (Normal) Range: 0.0-8.3 Comments: Katerin ECLIA methodology :35 SPEP (15711) Comments: PATIENT NOT FASTINGPERFORMED BY: [facility] Tmpbks7247 [facility] [id number] Information: [id number] Please note: SPRCS (Normal) Comments: Protein electrophoresis scan will follow via computer, mail, orcourier delivery. A/G Ratio 1.1 (Normal) Range: 0.7-1.7 Globulin, Total 3.0 g/dL (Normal) Range: 2.2-3.9 M-Ramana Not Observed g/dL (Normal) Gamma Globulin 1.1 g/dL (Normal) Range: 0.4-1.8 Beta Globulin 1.0 g/dL (Normal) Range: 0.7-1.3 Tndfc-7-Dsmbknvg 0.6 g/dL (Normal) Range: 0.4-1.0 Txqwo-6-Qmuuybvk 0.3 g/dL (Normal) Range: 0.0-0.4 Albumin 3.3 g/dL (Normal) Range: 2.9-4.4 Protein, Total, Serum 6.3 g/dL (Normal) Range: 6.0-8.5 :10 UPEP (30608) Comments: PATIENT NOT FASTINGPERFORMED BY: [employer] Mnknql6777 [facility] [id number] Information: [id number] Please note: SPRCS (Normal) Comments: Protein electrophoresis scan will follow via computer, mail, orcourier delivery. M-Ramana, % Not Observed % (Normal) Gamma Globulin, U 17.4 % (Normal) Beta Globulin, U 30.8 % (Normal) Nwrzd-5-Jsicjnkc, U 20.9 % (Normal) Dhwuh-7-Znsafrhx, U 7.5 % (Normal) Albumin, U 23.4 % (Normal) Protein,Total,Urine 4.9 mg/dL (Normal) :08 urine immunofixation (42459) Comments: PATIENT NOT FASTINGPERFORMED BY: eSeekersVirtua MarltonGlobkb8629 [facility] [id number] Information: SRC:UR [id number] MIGDALIA Interpretation:U UPEIP (Normal) Comments: No monoclonality detected. 5-Sec-918093:50 Urinalysis, Office (08110) UA - LEUKOCYTE ESTERASE Negative (Normal) UA - NITRITE Negative (Normal) URINE UROBILINGN DENISE TIMED Normal mg/dL (Normal) UA - PROTEIN Negative mg/dL (Normal) UA - PH 6.0 (Normal) Comments: 5.5 UA - BLOOD Negative (Normal) UA - SPECIFIC GRAVITY 1.030 (Abnormal) UA - KETONES Small mg/dL (Normal) UA - BILIRUBIN Negative (Normal) UA - GLUCOSE Negative (Normal) 06-Sta-923394:30 ANTINUCLEAR ANTIBODIES DIRECT Comments: [facility] (refer to report for specific site)refer to report for address and phone number ELIJAH-DIRECT Negative (Normal) Comments: Performed at: [facility]Co[address] [id number] Director: Ren Mcgovern PhD, Phone: [phone] 15-Zjd-069124:30 CBC W/Diff, Automated Comments: [facility] Xlhxhzujcc[address] [place], [place], [phone] Absolute Lymph 2.05 {X10_3/ul} (Normal) Range: 0.83-4.51 [...] 4.2-5.4 WBC 7.9 K/mm3 (Normal) Range: 4.4-11.0 44-Ptt-238478:30 Comprehensive Metabolic Profil Comments: Serial Specimen #1, #2 or #3? [address] [place] [address] T[address]qrs[address] [place], [place], [phone] GAP 6 (Normal) Range: 5-15 CO2 27.0 [...] 7-18 GLU 101 mg/dL (Normal) Range: 70-110 56-Zzf-159319:30 CRP Comments: Serial Specimen #1, #2 or #3? [address] [place] [address] Rzfr[address]ff[address] [place], [place], [phone] C-REACTIVE PROT < 2.90 mg/L (Normal) Range: 0.0-3.0 Comments: C-Reactive Protein (CRP) provides useful information for thediagnosis, therapy and monitoring of inflammatory processesand associated diseases. For the evaluation of Relative Riskfor Cardiovascular Dise ase, a High Sensitivity CRP (HSCRP)should be ordered. 34-Zwv-183919:30 Erythrocyte Sed Rate Comments: [facility] [address] [place], [place], [phone] SED RATE 20 mm/h (Normal) Range: 0-30 87-Mol-628496:30 Immunofixation Urine Comments: [facility] (refer to report for specific site)refer to report for address and phone number MIGDALIA Urine Test not performed (Normal) Comments: Quantity was not sufficient for analysis.CONTACTED MAHAD AT YOUR FACILITY 11-15-1513-Nov-201506-Bnh-056730:30 Immunofixation, Serum Comments: [facility] (refer to report for specific site)refer to report for address and phone number MIGDALIA RESULT,S Comment (Normal) Comments: No monoclonality detected. IMMUNOGL M 137 mg/dL (Normal) Range: 26-217 IMMUNO A 225 mg/dL (Normal) Range: 87-352 IMMUNO G 1077 mg/dL (Normal) Range: 700-1600 25-Ifv-873277:30 [place] Lambda Light Chains Comments: [facility] (refer to report for specific site)refer to report for address and phone number KAPPA/LAMBDA % 1.03 (Normal) Range: 0.26-1.65 FR LAMBDA LT CH 17.65 mg/L (Normal) Range: 5.71-26.30 FR KAPPA LT CHN 18.21 mg/L (Normal) Range: 3.30-19.40 21-Mnv-756873:30 LDH 201 U/L (Normal) Comments: Serial Specimen #1, #2 or #3? [facility] [address] [place], [place], [phone] Range: 84-246 27-Fhd-830650:30 Microalb:Creat Ratio,Random UR Comments: [facility] [address] [place], [place], [phone] MALB:CREAT 7.0 {mg/g_CRE} (Normal) MICROALBUMIN,UR 10.3 mg/L (Normal) UR CREAT 148.00 mg/dL (Normal) 74-Lxf-415209:30 Protein Electro.Ur-Random Comments: [facility] (refer to report for specific site)refer to report for address and phone number NOTE Comment (Normal) Comments: Protein electrophoresis scan will follow via computer,mail, or signal maintainer delivery. M-SPIKE,U Test not performed (Normal) GAMMA GLOB,U Test not performed (Normal) Comments: Test not performed BETA GLOB,U Test not performed (Normal) Comments: Test not performed VCQGA-1-SXCL,U Test not performed (Normal) Comments: Test not performed WOROF-7-YRCP,U Test not performed (Normal) Comments: Test not performed ALBUMIN,UR Test not performed (Normal) Comments: Test not performed PROTEIN,UR Test not performed mg/dL Comments: Quantity was not sufficient for analysis.CONTACTED MAHAD AT YOUR FACILITY 11-15-15 (Normal) 82-Kbq-165836:30 Urinalysis, Routine (Dipstick) Comments: How was Urine Obtained? CLEAN [facility] [address] [place], [address] LEUK ESTERASE 25 /ul (Abnormal) OCCULT BLOOD-UR 25 /ul (Abnormal) NITRITE UR Negative (Normal) UROBILI Normal mg/dL (Normal) PROT DIPSTX Negative mg/dL (Normal) pH UR 5.0 (Normal) Range: 5.0 - 8.0 SP.GR. DIPSTX 1.025 (Normal) Range: 1.002-1.030 KETONE UR Negative mg/dL (Normal) BILIRUBIN URINE Negative mg/dL (Normal) GLUCOSE, UR Normal mg/dL (Normal) CLARITY Clear (Normal) COLOR Yellow (Normal) 83-Swg-375079:00 Cytology, Body Fluid / CSF Comments: Specimen Source: [facility] [address] [place], [address] CYTOLOGY,BF/CSF SEE PATHOLOGY REPORT Comments: Specimen submitted to Anatomical Pathology Department fortesting. (Normal) 50-Aec-249054:00 CYTOSPIN ON FLUID See Note (Normal) Comments: [facility] [address] [place], [address] Comments: Patient: SADIA LONGO : 1950 (64/F) Acct Num: [id number] Phys: Veronica GARZA,Yung Unit Num: [id number] Loc: LABSPEC Specimen: [id number] Received: 08/31/15 - 1314 Spec Type: CYSPIN FL TISSUES TISSUES: CULTURE RESULTS No results available. CYTOLOGY GROSS Received is 10 ml of clear gold fluid labeled with the patient's name and and designat ed per the requisition as urine. Submitted for cytology preparation. / 08/31/15 TC:5 CPT:66085 CYTOLOGY STUDY Slides are reviewed. The specimen consists of benign squamous cells, benign urothelial cells and neutrophils. DIAGNOSIS CYTOLOGY Urine for cytology (cytospin): Negative for malignant cells. SJ:meliza 09/01/15 HEADER OPERATION: Not noted PRE-OP DIAGNOSIS: Hematu johnnie TISSUE SUBMITTED: Urine cytology Signed Samy Zayas 09/01/15 <signature on file> 35-Brg-536556:04 Urinalysis, Office (12826) UA - LEUKOCYTE ESTERASE Negative (Normal) UA - NITRITE Negative (Normal) URINE UROBILINGN DENISE TIMED Normal mg/dL (Normal) UA - PROTEIN Negative mg/dL (Normal) UA - PH 5 (Abnormal) UA - BLOOD Hemolyzed Trace (Normal) UA - SPECIFIC GRAVITY 1.030 (Abnormal) UA - KETONES Negative mg/dL (Normal) UA - BILIRUBIN Negative (Normal) UA - GLUCOSE Negative (Normal) 28-Ogk-572918:52 URINE KEE CULTURE-IDENTIFICATN Comments: PATIENT NOT FASTINGPERFORMED BY: [facility] Kxwect0842 [facility] [id number] Information: [id number] (97604) Antimicrobial MIHEAD (Normal) Comments: S = Susceptible; [...] Plan of Care Name Dates Details Instructions BMI 32.0-32.9,adult : Follow up in 3 [...] from Diffuse myofascial pain syndrome) Planned Observations Blood Glucose , Office (46728)Indication: Diabetes mellitus type II, controlled On: 08-Zlc-804189:33 Request Lipid Panel (77468)Indication: High triglycerides On: 3-Whx-210085:10 Request CALCIFEDIOL (61042)Indication: Osteopenia On: 5-Uhh-200853:51 Request CBC, Platelets & Auto Diff (07779)Indication: Hypertension On: :49 Request Lipid Panel (57517)Indication: Hypertension On: :49 Request Metabolic Panel, Comprehensive (62379)Indication: Hypertension On: :49 Request Urinalysis, Office (87401)Indication: Hypertension On: :49 Request CALCIFEDIOL (05596)Indication: Vitamin D deficiency On: 3-Ymt-639987:55 Request TSH (THYROID STIMULATING HORMONE) (16061)Indication: Acquired hypothyroidism On: 7-Uho-969251:51 Request CBC, Platelets & Auto Diff (08068)Indication: Diabetes mellitus type II, controlled On: :51 Request Metabolic Panel, Comprehensive (45894)Indication: Diabetes mellitus type II, controlled On: 7-Oqa-340929:51 Request Metabolic Panel, Comprehensive (25628)Indication: Fatty liver On: 14-Muv-569112:24 Request JGHNY-HNHQGJSUTBB-MJUGB (76032)Indication: Fatty liver On: :23 Request serum free light chains (92733)Indication: Swelling of both lower extremities On: 47-Aus-548049:53 Request UPEP (64360)Indication: Swelling of both lower extremities On: 19-Qnd-659638:53 Request urine immunofixation (66623)Indication: Swelling of both lower extremities On: Request serum immunofixation (86048)Indication: Swelling of both lower extremities On: Request URINALYSIS (77065)Indication: Swelling of both lower extremities On: Request MICROALBUMIN: CREATININE RATIO (20842) AND (62184)Indication: Swelling of both lower extremities On: Request BLOOD SMEAR, W/O MANUAL DIFF WBC (54579)Indication: Lymphadenopathy On: Request LDH (LD) (LACTATE DEHYDROGENASE) (43171)Indication: Lymphadenopathy On: Request ELIJAH (ANTINUCLEAR ANTIBODY) (25614)Indication: Lymphadenopathy On: Request C-REACTIVE PROTEIN (69862)Indication: Lymphadenopathy On: Request SED RATE ERYTHROCYTE (69206)Indication: Lymphadenopathy On: Request METABOLIC PANEL, COMPREHENSIVE (86996)Indication: Lymphadenopathy On: Request CBC, Platelets & Auto Diff (33708)Indication: Gingivitis On: :37 Request METABOLIC PANEL, COMPREHENSIVE (81937)Indication: High triglycerides On: 55 Request LIPID PANEL (27486)Indication: High triglycerides On: :55 Request TSH (00402)Indication: Acquired hypothyroidism On: :54 Request VITAMIN B-12 (CYANOCOBALAMIN) (92826)Indication: Memory change On: 54 Request TSH (33293)Indication: Acquired hypothyroidism On: :54 Request METABOLIC PANEL, COMPREHENSIVE (75504)Indication: Diabetes mellitus type II, controlled On: 53 Request CBC with auto diff (91497)Indication: Diabetes mellitus type II, controlled On: 53 Request LIPID PANEL (95437)Indication: Diabetes mellitus type II, controlled On: :53 Request MICROALBUMIN: CREATININE RATIO (68251) AND (27431)Indication: Diabetes mellitus type II, controlled On: :53 Request SED RATE ERYTHROCYTE (94292)Indication: Fatigue On: :51 Request C-REACTIVE PROTEIN (03182)Indication: Fatigue On: :51 Request FERRITIN (59927)Indication: Fatigue On: :51 Request IRON (96904)Indication: Fatigue On: :51 Request ALDOLASE (45232)Indication: Fibromyalgia (Renamed from Diffuse myofascial pain syndrome) On: :51 Request Creatine Kinase Total (48727)Indication: Fibromyalgia (Renamed from Diffuse myofascial pain syndrome) On: :51 Request SPEP (40381)Indication: Fatigue On: :51 Request UPEP (75295)Indication: Fatigue On: :51 Request FOLIC ACID SERUM (12730)Indication: Fatigue On: :51 Request VITAMIN B-12 (CYANOCOBALAMIN) (19858)Indication: Fatigue On: :51 Request URINALYSIS, W/ MICRO (18908)Indication: Fatigue On: :50 Request METABOLIC PANEL, COMPREHENSIVE (01044)Indication: Fatigue On: :50 Request Planned Encounters Medical; 3 Month FU - On: 05-Feb-2018 13:45 [facility] Anjelica Salguero CNP, CNP, Mary E Planned Procedures SCREENING DIGITAL TOMOSYNTHESIS OF On: 31-Jul-2017 Intent BREAST (01059)By: Anjelica Salguero CNP, CNP, Mary E ELECTROCARDIOGRAM, COMPLETE (ECG) On: 02-May-2017 Intent (15165)By: Anjelica Salguero CNP, CNP, Mary E ELECTROCARDIOGRAM, COMPLETE (ECG) On: 23-Mar-2017 Intent (20376)By: Anjelica Salguero CNP, CNP, Mary E DEXA SCAN AXIAL SKELETON (37597)By: On: 23-Jan-2017 Intent Anjelica Salguero CNP, CNP, Mary E Ear Irrigation (97763)By: Oscar On: 17-Oct-2016 Intent Anjelica ANGELES CNP, Mary E Wax CurettesBy: Anjelica Salguero CNP On: 17-Oct-2016 Intent Anjelica Salguero CNP MAMMOGRAM BREAST BILATERAL SCREENING On: 14-Jul-2016 Intent DIGITAL (60910)By: Sydneelisasatish ANGELES Anjelica Hernandez CNP Ultrasound - LiverBy: Oscar ANGELES, On: 12-Nov-2015 Intent [address] Hernandez CNP CT - Chest (Without Contrast)By: On: 08-Sep-2015 Intent Arabella Parish DO INJECTION, PROLIA (J0897)By: Jem On: 24-Aug-2015 Intent Arabella WONG Comments: Lot:[id number]:12/08Dose:60mlRoute:sub qSite:l armGiven By:SARIKA signed CHEST CT WITHOUT CONTRAST (00691)By: On: 06-Jul-2015 Intent Arabella Parish DO Comments: HIGH RESOLUTION CT - Chest (Without Contrast)By: On: 29-Jun-2015 Intent Arabella Parish DO Comments: HIGH RESOLUTION Radiology - ChestBy: Arabella Parish DO On: 07-Jun-2015 Intent A Comments: PA&L CT - Abdomen & Pelvis (Without On: 04-Jun-2015 Intent Contrast)By: Arabella Parish DO Comments: stat call wet read MAMMOGRAM, SCREENING, BOTH BREAST On: 04-Jun-2015 Intent (43837)By: Arabella Parish DO MAMMOGRAM, SCREENING, BOTH BREAST On: 26-Feb-2015 Intent (02075)By: Arabella Parish DO Flu Vaccine (Quadrivalent) 81633Jb: On: 26-Feb-2015 Intent Arabella Parish DO ADMINISTRATION OF INFLUENZA VIRUS On: 26-Feb-2015 Intent VACCINE (G0008)By: Arabella Parish DO Comments: Lot #[id number]-L dltd, IMDose prefilled syringegiven by:CODY Summers and ABN signed Doppler Ultrasound OtherBy: Jem WONG, On: 07-Jul-2014 Intent Arabella Covarrubias Comments: legs Planned Medications INJECTION, PROLIA Ordered: 24-Aug-2015 Pending Arabella Parish DO Instructions Name Dates Details Diabetes mellitus type II, controlled : How [...] 31.0-31.9,adult Fatigue : DISCONTINUED - LIPID PANEL (85841) Indication: Fatigue Nonsmoker : How to access [...] liver : DISCONTINUED - METABOLIC PANEL, COMPREHENSIVE (30549) Indication: Fatty liver Fatty liver : DISCONTINUED - ZXVVM-WZLWQSLKYRN-IVWKL (87069) Indication: Fatty liver Depression : DISCONTINUED - CALCIFEDIOL (94573) Indication: Depression Nonsmoker : How to access [...] Diffuse myofascial pain syndrome) Encounters Annotation/Addendum On: 31-Jan-2018 7:12 Encounter Diagnosis: Jaccoud's [...] for chronic medical issues: Seeing Basali for inje ctions in back. Was doing [...] (). Note for Discuss procedure results: Saw Photo Technician Dr. Skyler Odonnell at [facility] now needs breaker tender, End: 01-May-2017 15:42 [ADDITIONAL REASON] Follow up [...] complaints (pre-cancerous areas on face,. IPL trillium [place]), has decreased energy level and is sleeping [...] Veronica and now on vesicare and helping li ttle gerd - abd pain /pelvic pain [...] weight stable- went to sisters wedding in [place] with help of daughter and felt singificiantly [...] thinks maybe with bm- happened when in [place]- drinking more water- not much fiber - [...] (pt thinks the sev End: 27-Sep-2014 21:52 zrui worked in the beginning but now not [...] put her on morphine and she thinks allyssa is helping and is tolerating- she has [...] peanut butter - no meat some cheese cymraes yogurt- saw Garnett and ordered sleep study [...] (729.5) [facility] Payers Anil Longo; satish guarantor
--- OUTSIDE RECORDS SUMMARY | 2018-05-15 06:19 | XMS RPT_ITS | Continuity of Care Document ---
:1950 Author Organization [facility] Address [address] [place] [address] Phone Care Team Providers Name Role Phone Oscar KARTHIK, Paloma Unavailable Mason Garnett Unavailable Neftaly Rose MD Unavailable Garth GARZA, Yaniv King Unavailable Khushbu Cevallos Unavailable Unavailable Slarb REGISTERED RADIOLOGIC TECHNOLOGIST, Dora Unavailable Unavailable Long REGISTERED RADIOLOGIC TECHNOLOGIST, Bina Hernandez Unavailable Unavailable Tiesha Avina Unavailable [...] in Nov now 18.99 labs done at [facility] will repeat with our lab today andnow seeing Barrie most recent tsh undectable per pt.she is asking for another specialist or myself to follow Status: Active Acquired hypothyroidism (E03.9, 244.9) Comments: Seeing Dr. Lobato in [place] on tircent they monitor Status: Active Allergic [...] Active Depression (F32.9, 311) Comments: Sees Dr. Caedn Greer Status: Active Depression (311.) (311) Status: Active Diabetes mellitus type II, controlled (E11.9, 250.00) Comments: stopped seeing Barrington Wayne seeing Dany in [place] Status: Active Encounter for gynecological examination without [...] treated initially by endocrine, [facility], ekg todaytakes [...] Relief 50 MCG/ACT Nasal Suspension 2 (two) Ballantine Ballantine daily for 0 days Quantity: 1 {Ballantine} Refills: 0 Ordered:05-Feb-2018 Khushbu Cevallos Start : [...] Quantity: 30 {Capsule} Refills: 0 Ordered:05-Feb-2018 Oscar FINAL OPERATIONS TECHNICIAN, Anjelica LEDYmichelle FINAL OPERATIONS TECHNICIAN, Anjelica Hutchinson Start : 02-Nov-2017 End : [...] Department Summary Result: Comments: See Note; NOTES: [facility] Medical Records Department [address] [place] [address] Emergency Department Summary 03/01/18 1431 MR#: [id number] Acct: [id number] Name: SADIA LNOGO Rep #: [id number] : 1950 67 From: Sascha Addison MD [...] of depression This note was generated with Nascentric dictation software. It may co ntain incorrect words, spelling, and punctuation that were not noted in review of the chart prior to signing ED Disposition - Plan for ED Patient: Chief Complaint: Numb/Ting Referrals: Anjelica Salguero, ORAL PATHOLOGIST -C [Primary Care Provider] - What to do if you have Problems For any increased pain, shortness of breath, bleeding, nausea or vomiting, chest pain, or any unexpected problems, contact your Primary C are Provider. Call [facility] ([phone]) or report to the closest Emergency Room. Call 911 if necessary. 03/01/18 1437 <Electronically signed by Sascha Addison MD> Date _ Sascha Addison MD Cosigner Signature (If Indicated): Date CC: Anjelica Salguero NP 01-Mar-2018 Brain/Head without Contrast Result: Comments: See Note; NOTES: [facility] Imaging Services [address] [place] [address] Brain/Head without Contrast MR#: [id number] Acct: [id number] Name: SADIA LONGO Rep #: [id number] : 1950 F 67 From: Xu Davila MD PCP: Anjelica Salguero NP Status: REG ER Study: Brain/Head without Contrast Date of Exam: 03/01/18 Exam# [id number] Ordering Dr: Sascha Addison MD STUDY : [...] Xu Davila MD at 14:04 EST Tel [phone], Service support [phone]- [phone], CC: Anjelica Salguero NP; Sascha Addison MD Banner Painter: Signed 22-Aug-2017 SCREENING MAMM (CAD), BILAT Result: Comments: See Note; NOTES: [facility] Imaging Services [address] [place] [address] SCREENING MAMM (CAD), BILAT MR#: [id number] Acct: [id number] Name: SADIA LONGO Rep #: [id number] : 1950 F 66 From: Xu Davila MD PCP: Anjelica Salguero NP Status: REG CLI Study: SCREENING MAMM (CAD), BILAT Date of Exam: 08/22/17 Exam# [id number] Ordering Dr: Anjelica Salguero MAMMO GRAPHY - [...] biopsy of a clinically suspicious abnorm ality. [id number] Electronically Signed: Xu Davila MD at 9:48 EDT Tel [phone], Service support , CC: Anjelica Salguero NP Banner Painter: Signed 15-Jun-2017 Echocardiogram Complete Result: Comments: See Note; NOTES: [facility] Cardiovascular Services [address] [place] [address] Echo Complete 06/15/17 0933 MR#: [id number] Acct: [id number] Name: SADIA LONGO Rep #: [id number] : 1950 66 From: Yaniv Liang MD [...] MD Date Dictated: 06/15/1733 Date Transcribed: 06/15/171642 Banner Painter: Signed 15-Jun-2017 Stress Report Result: Comments: See Note; NOTES: [facility] Cardiovascular Services [address] [place] [address] MR#: [id number] Acct: [id number] Name: SADIA LONGO Rep #: [id number] : [birth year] 66 From: Yaniv Liang MD [...] of 92%. This note was generated with AF83ation software. It may contain incorrect words, spelling, and punctuation that were not noted in checking the note before signing. 8 3768 <Electronically signed by Yaniv Liang MD> Date Yaniv Liang MD CC: Anjelica Salguero NP; Yaniv Liang MD Date Dictated: 06/15/17 1014 Date Transcribed: 06/15/171013 Banner Painter: PM Signed 13-Jun-2017 Lumbar Spine 2 or 3 Views Result: Comments: See Note; NOTES: [facility] Imaging Services [address] [place] [address] Lumbar Spine 2 or 3 Views MR#: [id number] Acct: [id number] Name: SADIA LONGO Rep #: : 1950 F 66 From: Robert Saba DO PCP: Anjelica Salguero NP Status: REG CLI Study: Lumbar Spine 2 or 3 Views Date of Exam: 06/13/17 Exam# [id number] Ordering Dr: Yung Alvarez MD STUDY: X-RAY [...] CC: Anjelica Salguero NP; Yung Alvarez MD Banner Painter: Signed 31-May-2017 Cardiology Visit Report Result: Comments: See Note; NOTES: [facility] [address] [place] [address] OFFICE VISIT Date of Service: 05/31/17 MR#: [id number] Acct: [id number] Name: SADIA LONGO Rep #: [id number] : 1950 Provider: Yaniv Liang MD Age/Sex: 66/F Location[place] [facility] Status: Signed HPI HPI Details: SADIA LONGO, is a 66 F who presents to the office today for for outpatien t cardiovascular consultation based on concerns of shortness of breath/dyspnea, chest discomfort, and fatigue superimposed upon a reported history of underlying CAD. She states she has previously been e valuated by Dr. Murray Patterson of cardiology in the [place], [place] area. She notes in the past [...] study performed in June 2014 via the [facility] system. According to the report s [...] of non-cardiovascular issues. Based upon notes from [facility] from 06/16/2012 it appears at that [...] 60 mg/mL subcutaneous syringe 60 mg SC [id number] 05/30/17 [Hi story Confirmed 05/31/17] epinephrine 0.3 [...] mg PO QDAY 05/31/17 [History Confirmed ] [facility] Medical History Palpitations (Acute) SOB (shortness of [...] to this approach. Follow Up 6 Weeks (PA/ORAL PATHOLOGIST) Coding Level of Care Code Off vis,new,level [...] NP 31-May-2017 12 Lead EKG performed by [facility] Result: Comments: See Note; NOTES: [facility] [address] [place] [address] 12 Lead EKG performed by [facility] 05/31/17 1413 MR#: [id number] Acct: [id number] Name: SADIA LONGO Rep #: [id number] : 1950 66 From: Yaniv Liang MD Attending Dr: Yaniv Liang MD Status: [facility] Ordering Dr: Yaniv Liang MD Date: 05/31/17 [place] [facility] [place]: F C Ad[facility]: [facility]12 Lead EKG performed by [facility] ECG Report Interpretation Sinus Rhythm Poor R wave progressionElectronically signed on 05/31/2017 at 16:10 by Esvin Liang 05/31/17 1612 Date Yaniv Liang MD CC: Anjelica Oscar STANLEY Date Dictated: 05/31/171412 Date Transcribed: 05/31/171412 Banner Painter: PM Signed 29-Mar-2017 Emergency Department Summary Result: Comments: See Note; NOTES: [facility] Medical Records Department [address] [place] [address] Emergency Department Summary MR#: [id number] Acct: [id number] Name: RAMAKRISHNA LONGO Rep #: [id number] : 1950 66 From: Liam Whalen MD [...] COURSE: The patient w as treated with [place], placed in a walking boot. TREATMENT PLAN: The patient will be discharged with instructions to follow up with forger helper in 1 week if not improving. DISPOSITION: Home, improved, stable condition. IMPRESSION: Left foot sprain. MD Dennis Medina C: Anjelica Salguero T: NTS JOB: [id number] 03/29/17 0650 <Electronically signed by Liam Whalen MD> Date _ Liam Whalen MD Cosigner Signature (If Indicated): Date CC: Anjelica Salguero ORAL PATHOLOGIST Date Dictated: 03/23/172102 D ate Transcribed: 03/23/172102 Banner Painter: Signed 13-Feb-2017 Dexa Bone Density Study (HP) Result: Comments: See Note; NOTES: [facility] Imaging Services [address] [place] [address] Dexa Bone Density Study (HP) MR#: [id number] Acct: [id number] Name: SADIA LONGO Rep #: [id number] : 1950 F 66 From: Xu Davila MD PCP: Anjelica Salguero Status: REG CLI Study: Dexa Bone Density Study (HP) Date of Exam: 02/13/17 Exam# [id number] Ordering Dr: Anjelica Salguero STUDY: DUAL ENERGY [...] Xu Davila MD at 14:52 EDT Tel [phone], Service support , CC: Anjelica Salguero Banner Painter: Signed 26-Jan-2017 Spine Lumbar (Routine) Result: Comments: See Note; NOTES: [facility] Imaging Services [facility] [place] [address] Spine Lumbar (Routine) MR#: [id number] Acct: [id number] Name: DONTASADIA C Rep #: [id number] : 1950 F 66 From: Mason Gilliam MD PCP: Anjelica Salguero Status: REG CLI Study: Spine Lumbar (Routine) Date of Exam: 01/26/17 Exam# [id number] Ordering Dr: Yung Alvarez MD STUDY: MRI [...] Service support , CC: Anjelica Alvarez MD Banner Painter: Signed 02-Mar-2016 Cerv Spine 2 or 3 Views Result: Comments: See Note; NOTES: [facility] Imaging Services [address] [place] [address] Verdana 4d Cerv Spine 2 or 3 Views MR#: [id number] Acct: [id number] Name: SADIA LONGO Rep #: [id number] : 1950 F 65 From: Marshall Landaverde DO PCP: Anjelica Salguero Status: REG CLI Study: Cerv Spine 2 or 3 Views Date of Exam: 03/02/16 Exam# [id number] Ordering Dr: Yung Alvarez MD STUDY : [...] Marshall Landaverde DO at 23:01 EST Tel [phone], Service support [phone], CC: Anjelica Alvarez MD Banner Painter: Signed 02-Mar-2016 Lumbar Spine 2 or 3 Views Result: Comments: See Note; NOTES: [facility] Imaging Services [address] [place] [address] Verdana 4d Lumbar Spine 2 or 3 Views MR#: [id number] Acct: [id number] Name: SADIA LONGO Rep #: [id number] : 1950 F 65 From: Marshall Landaverde DO PCP: Anjelica Salguero Status: REG CLI Study: Lumbar Spine 2 or 3 Views Date of Exam: 03/02/16 Exam# [id number] Ordering Dr: Yung Alvarez MD S TUDY: [...] tissue structures are unremarkable. 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 Electronically Signed: Marshall Landaverde DO at 23:10 EST Tel [phone], Service support [phone], CC: Anjelica Salguero; Yung Alvarez MD Banner Painter: Signed 16-Nov-2015 Liver Result: Comments: See Note; NOTES: [facility] Imaging Services [address] [place] [address] Verdana 4d Liver MR#: [id number] Acct: [id number] Name: SADIA LONGO Rep # : [id number] : 1950 F 64 From: Apryl Melendez MD PCP: Arabella Parish DO Status: REG CLI Study: Liver Date of Exam: 11/16/15 Exam# [id number] Ordering Dr: Anjelica Salguero STUDY: ABDOMINAL ULTRASOU [...] hydronephrosis. CC: Anjelica Salguero; Arabella Parish DO Banner Painter: Signed 16-Nov-2015 Liver Result: Comments: See Note; NOTES: [facility] Imaging Services [address] [place] [address] Verdana 4d Liver MR#: [id number] Acct: [id number] Name: DONTASADIA C Rep # : [id number] : 1950 F 64 From: Apryl Melendez MD PCP: Arabella Parish DO Status: REG CLI Study: Liver Date of Exam: 11/16/15 Exam# [id number] Ordering Dr: Anjelica Salguero STUDY: ABDOMINAL ULTRASOU [...] at 8:20 EDT Tel , Service support [phone], CC: Anjelica Salguero; Arabella Parish DO Banner Painter: Signed 03-Sep-2015 Kidney and Bladder Result: Comments: See Note; NOTES: [facility] Imaging Services [address] [place] [address] Verdana 4d Kidney and Bladder MR#: [id number] Acct: [id number] Name: LISA LONGO THADSatish Dennis Rep #: [id number] : 1950 F 64 From: Bonilla Belle DO PCP: Arabella Parish DO Status: REG CLI Study: Kidney and Bladder Date of Exam: 09/03/15 Exam# [id number] Ordering Dr: Cosmo Martin MD STUDY: RENAL [...] Bonilla Belle DO at 23:38 EDT Tel [phone], Service support [phone], CC: Arabella Parish DO; Cosmo Martin MD Banner Painter: Signed 23-Jul-2015 Bilat Scrn Digital AND CAD Result: Comments: See Note; NOTES: [facility] Imaging Services [address] [place] [address] Verdana 4d Bilat Scrn Digital AND CAD MR#: [id number] Acct: [id number] Name: SADIA LONGO Rep #: [id number] : 1950 F 64 From: Xu Davila MD PCP: Arabella Parish DO Status: REG CLI Study: Bilat Scrn Digital AND CAD Date of Exam: 07/23/15 Exam# [id number] Boogie phan Dr: Arabella Parish DO MAMMOGRAPHY [...] bio psy of a clinically suspicious abnormality. [id number] Electronically Signed: Xu Davila MD at 13:17 EDT Tel [phone], Service support [phone], CC: Arabella Parish DO Banner Painter: Signed 08-Jun-2015 Chest PA and Lateral Result: Comments: See Note; NOTES: [facility] Imaging Services [address] [place] [address] Verdana 4d Chest PA and Lateral MR#: [id number] Acct: [id number] Name: SADIA LONGO Rep #: [id number] : 1950 F 64 From: Brock Wright MD PCP: Arabella Parish DO Status: REG CLI Study: Chest PA and Lateral Date of Exam: 06/08/15 Exam# [id number] Ordering Dr: Rasta Parish DO STUDY: X-RAY [...] FACR at 20:39 EST , Service support [phone], RAD/Chest PA and Lateral IMPRESSION: Mild interstitial changes in the lower lobes. No acute infiltrates or pleural effusions noted Electronically Signed: Brock Wright MD, FACR at 20:39 ES T , Service support [phone], CC: Arabella Parish DO Banner Painter: Signed 04-Jun-2015 Abdomen/Pelvis without Cont Result: Comments: See Note; NOTES: [facility] Imaging Services [address] [place] [address] Verdana 4d Abdomen/Pelvis without Cont MR#: [id number] Acct: [id number] Name: SADIA LONGO Rep #: [id number] : 1950 F 64 From: Bonilla Belle DO PCP: Arabella Parish DO Status: REG CLI Study: Abdomen/Pelvis without Cont Date of Exam: 06/04/15 Exam# [id number] Ordering Dr: Arabella Gaming DO STUDY: CT [...] Bonilla Belle DO at 19:11 EST Tel [phone], Service support , CC: Arabella Parish DO Banner Painter: Signed 27-Jul-2014 Sleep Study Report Result: Comments: See Note; NOTES: [facility] [address] [place] [address] Unattended Sleep Study MR#: [id number] Acct: [id number] Name: SADIA LONGO ep #: [id number] : 1950 63 From: Mason Garnett MD PCP: Arabella Parish DO Status: REG CLI Ordering Dr.: Mason Garnett MD Date: 07/21/14 Sex: F C APNEA LINK PORTABLE POLYSOMNOGRAM: REFERRI PHYSICIAN: Dr. Mason Garnett. SLEEP HISTORY: The patient is a 63-year-old female with a calculated body mass index of 28.6 and an [place] Sleepiness Scale score of 20/24. The patient [...] version). Please note that a reference to [facility] in this report is consistent with [...] subjective complaints, and elevated score on the [place] Sleepiness Scale are not explained by the [...] smoker Vital Signs Date Test Result Details 1-Dlr-293224:50 Temperature 97.5 f Comments: Method: Temporal Pulse [...] kg/m2 Body Surface Area Calculated 1.76 m2 35-Qlw-565986:51 Temperature 99.1 f Pulse 108 /min Comments: [...] Details :58 Basic Metabolic Profile (BMP) Comments: [facility] [address] [place], [place], [address] GAP 6 (Normal) Range: 5-15 CO2 27.0 [...] Comments: Please note revised GLUCOSE reference range nukqnurtj65/02/2018. 2-Cya-510439:58 CBC W/Diff, Automated Comments: [facility] [address] [place], [address] Absolute Lymph 2.90 {X10_3/ul} (Normal) [...] 4.2-5.4 WBC 9.1 K/mm3 (Normal) Range: 4.4-11.0 8-Gaz-669390:58 Partial Thromboplast Time Comments: [address] [place], [place], [address] PTT 26.9 s (Normal) Range: 24.1-36.2 7-Zwl-106996:58 Prothrombin Time w/INR Comments: [address] [place], [place], [address] INR 1.0 (Normal) PROTIME 12.8 s (Normal) Range: 11.7-14.9 0-Fdv-600222:58 Thyroid Stim Hormone (TSH) Comments: [address] [place], [place], [address] TSH 0.02 {uIU/mL} (Abnormal) Range: 0.358-3.74 5-Qht-156750:58 Troponin-I Comments: [facility] [address] [place], [place], [address] TROPONIN-I < 0.015 ng/mL (Normal) Comments: TROPONIN-I EXPECTED VALUES <0.045 Negative 0.045 - 0.590 Consistent with Cardiac Damage > OR = 0.600 Critical Value Not every elevated troponin is indicative of AZ. T hesevalues should be used with clinical judgement in examiningthe patient's clinical picture for diagnosis. To establisha diagnosis of AZ versus myocardial injury, there must be ademonstrated rise and/ or fall in the troponin values, inaddition to ischemic symptoms, EKG changes, new regionalwall motion abnormality, and/or angiographical evidence. PLEASE NOTE: REFERENCE RANGES EDITED 09/03/1701-Mar-20186-Fsu-653434:08 Urinalysis, Office (39761) UA - LEUKOCYTE ESTERASE Negative (Normal) UA - NITRITE Negative (Normal) URINE UROBILINGN DENISE TIMED Normal mg/dL (Normal) UA - PROTEIN Negative mg/dL (Normal) UA - PH 6 (Abnormal) UA - BLOOD Hemolyzed Trace (Normal) UA - SPECIFIC GRAVITY 1.030 (Abnormal) UA - KETONES Negative mg/dL (Normal) UA - BILIRUBIN Negative (Normal) UA - GLUCOSE Negative (Normal) 54-Zem-768412:30 T4, FREE (THYROXINE) (88827) Comments: PATIENT NOT FASTINGPERFORMED BY: [employer] Igiyaj8123 [facility] [id number] T4,Free(Direct) 1.93 ng/dL (Abnormal) Range: 0.82-1.77 62-Jco-193131:30 T3, FREE (TRIDOTHYRONINE) (30791) Comments: PATIENT NOT FASTINGPERFORMED BY: [employer] Oqfwpi2949 [facility] [id number] Triiodothyronine (T3), Free 3.1 pg/mL (Normal) Range: 2.0-4.4 33-Pog-073589:30 TSH (THYROID STIMULATING Comments: PATIENT NOT FASTINGPERFORMED BY: [facility] Wehygj5707 [facility] [id number] HORMONE) (61149) TSH 0.006 {uIU/mL} (Abnormal) Range: 0.450-4.500 30-Fos-734614:30 CALCIFEDIOL (42520) Comments: PATIENT NOT FASTINGPERFORMED BY: [facility] Asfbfr0845 [facility] [id number] Vitamin D, 25-Hydroxy 33.6 ng/mL (Normal) Range: 30.0-100.0 Comments: Vitamin D deficiency has been defined by the [place] of[place]icine and an Endocrine Society practice guideline as alevel of serum 25-OH vitamin D less than 20 ng/mL (1,2).The Endocrine Society went on to further define vitamin Dinsufficiency as a level between 21 and 29 ng/mL (2).1. IOM ([place] of Medicine). 2010. Dietary reference intakes for calcium and D. [place]: The National Academies Press.2. Rodolfo MF, Dwight NC, Zeke OWUSU, et al. Evaluation, treatment, and prevention of vitamin D deficiency: an Endocrine Society clinical practice guideline. JCEM. 2010; 96(7):1911-30. 78-Prf-782950:30 CBC, Platelets & Auto Diff Comments: PATIENT NOT FASTINGPERFORMED BY: [facility] Xipkus3929 [facility] [id number] (25460) Immature Grans (Abs) 0.0 {x10E3/uL} (Normal) Range: [...] 3.77-5.28 WBC 10.3 {x10E3/uL} (Normal) Range: 3.4-10.8 90-Fhr-527142:30 Metabolic Panel, Comprehensive Comments: PATIENT NOT FASTINGPERFORMED BY: [facility]Co[facility] CenterUiownf3347 [facility] [id number] (21653) ALT (SGPT) 18 [iU]/L (Normal) Range: 0-32 [...] 8-27 Glucose 70 mg/dL (Normal) Range: 65-99 72-Hyc-827869:10 URINE KEE CULTURE-IDENTIFICATN Comments: PATIENT NOT FASTINGPERFORMED BY: [facility] Lhxnrf1079 [facility] Road[facility] [id number] Information: SRC:SHAZIA (39628) Result 2 MUG (Normal) Comments: Mixed urogenital [...] and Proteusmirabilis. Urine Final report (Abnormal) CultureSafia 35-Zot-737990:11 Urinalysis, Office (18105) UA - LEUKOCYTE ESTERASE Trace (Normal) UA - NITRITE Negative (Normal) URINE UROBILINGN DENISE TIMED Normal mg/dL (Normal) UA - PROTEIN Negative mg/dL (Normal) UA - PH 6.0 (Normal) UA - BLOOD Hemolyzed Trace (Normal) UA - SPECIFIC GRAVITY 1.030 (Abnormal) UA - KETONES Negative mg/dL (Normal) UA - BILIRUBIN Negative (Normal) UA - GLUCOSE Negative (Normal) 37-Erz-197006:01 HgA1C , Office (43339) HgA1C , Office 5.3 % (Normal) Range: 4.6 - 7.1 :00 Blood Glucose , Office (16105) Blood Glucose , Office 127 (Normal) :54 Blood Glucose , Office (83977) Blood Glucose , Office 109 (Normal) :54 HgA1C , Office (72320) HgA1C , Office 5.4 % (Normal) Range: 4.6 - 7.1 :10 Miscellaneous Lab Procedure Comments: Test(s) Ordered: [id number] [address] [place], [address] [facility] Comments: 935178 6+OXYCODONE-BUND (ng/mL)DRUG RESULT SCREEN CUTOFF____ Amphetamines,Urine Negat [...] includes Oxydodone and Oxymorphone. TESTING PERFORMED AT [facility]. ORIGINAL REPORT ON FILE IN LAB CONTAINS AD DITIONAL TEST SITE INFORMATION. 21-Egw-184103:10 Urine Drug Screen (VISTA) Comments: List of Drugs Taken or Suspected? .[facility] [address] [place], [address] THC POSITIVE (Abnormal) PCP NEGATIVE (Normal) OPIATES [...] MUST BE ORDERED SEPARATELY. USE TESTMNEMONIC: UTCA 72-Xdm-697340:33 HgA1C , Office (48073) HgA1C , Office 5.4 % (Normal) Range: 4.6 - 7.1 62-Mww-492242:45 CPK MB FRACTION (35337) Comments: PATIENT WAS FASTINGPERFORMED BY: [employer]6370 [facility] [id number] Creatine Kinase (CK), MB 2.0 ng/mL (Normal) Range: 0.0-5.3 23-Ynq-671202:45 ASSAY, TROPONIN, QUANTITATIVE Comments: PATIENT WAS FASTINGPERFORMED BY: [employer]6370 [facility] [id number] (aka Troponin I) (28686) Troponin I <0.01 ng/mL (Normal) Range: 0.00-0.04 79-Zku-553269:45 LIPID PANEL (97963) Comments: PATIENT WAS FASTINGPERFORMED BY: [employer]6370 [facility] [id number] LDL/HDL Ratio 1.4 {ratio_units} (Normal) Range: 0.0-3.2 Comments: LDL/HDL Ratio Men Women 1/2 Avg.Risk 1.0 1.5 Av g.Risk 3.6 3.2 2X Avg.Risk 6.2 5.0 3X Avg.Risk 8.0 6.1 LDL Cholesterol Calc 94 mg/dL (Normal) Range: 0-99 VLDL Cholesterol Mike 21 mg/dL (Normal) Range: 5-40 HDL Cholesterol 66 mg/dL (Normal) Triglycerides 107 mg/dL (Normal) Range: 0-149 Cholesterol, Total 181 mg/dL (Normal) Range: 100-199 86-Ink-486874:34 CBC, Platelets & Auto Diff Comments: PATIENT WAS FASTINGPERFORMED BY: [facility] CenterTrrjqb0202 [facility] [id number] (96698) Immature Grans (Abs) 0.0 {x10E3/uL} (Normal) Range: [...] 3.77-5.28 WBC 6.9 {x10E3/uL} (Normal) Range: 3.4-10.8 9-Blk-087483:33 HgA1C , Office (64226) HgA1C , Office 5.3 % (Normal) Range: 4.6 - 7.1 5-Jtt-896832:33 Blood Glucose , Office (37549) Blood Glucose , Office 96 (Normal) 7-Quz-066738:24 CBC With Differential/Platelet Comments: PATIENT NOT FASTINGPERFORMED BY: [facility] Wlsqos3930 [facility] [id number] Immature Grans (Abs) 0.0 {x10E3/uL} (Normal) Range: [...] Panel (14) Comments: PATIENT NOT FASTINGPERFORMED BY: [employer] Corso12 [place] [id number] ALT (SGPT) 18 [iU]/L (Normal) Range: 0-32 [...] Glucose, Serum 102 mg/dL (Abnormal) Range: 65-99 2-Rlw-120751:24 Lipid Panel With LDL/HDL Comments: PATIENT NOT FASTINGPERFORMED BY: Shotfarm70 Wik[facility] LLCCritical access hospital [id number] Ratio LDL/HDL Ratio 2.1 {ratio_units} Range: 0.0-3.2 [...] ng/mL (Abnormal) Comments: PATIENT NOT FASTINGPERFORMED BY: Hart [employer]6370 [facility] [id number] 3:24 Range: 30.0-100.0 Comments: Vitamin D deficiency has been defined by the [facility] and an Endocrine Society practice guideline as alevel of serum 25-OH vitamin D less than 20 ng/mL (1,2).The Endocrine Society went on to further define vitamin Dinsufficiency as a level between 21 and 29 ng/mL (2).1. IOM ([place] of Medicine). 2010. Dietary reference intakes for calcium and D. [place]: The National Academies Press.2. Rodolfo MF, Dwight NC, Zeke OWUSU, et al. Evaluation, treatment, and prevention of vitamin D deficiency: an Endocrine Society clinical practice guideline. JCEM. 2010; 96(7):1911-30. 5-Aou-231196:58 MICROALBUMIN: CREATININE RATIO Comments: PATIENT NOT FASTINGPERFORMED BY: [employer] Nmhpwi0403 [address] [facility] HospitalAfrifresh GroupCritical access hospital [id number] (07120) AND (56929) Microalb/Creat Ratio 14.5 {mg/g_creat} (Normal) Range: 0.0-30.0 Microalbumin, Urine 4.1 ug/mL (Normal) Creatinine, Urine 28.2 mg/dL (Normal) 9-Tam-958669:18 Miscellaneous Lab Procedure Comments: Comments: [id number] URINE DRUGTest(s) Ordered: 046540 [facility] Mzoihdkdaq2084 [place], 836[address] [facility] Comments: 110681 6+OXYCODONE-BUND (ng/mL)DRUG RESULT SCREEN CUTOFF____ Amphetamines,Urine Negat [...] Oxydodone and Oxymorphone. ____ TESTING PERFORMED AT [facility]. ORIGINAL REPORT ON FILE IN LAB CONTAINS ADDITIONAL TEST SITE INFORMATION. 8-Juk-648790:18 Urine Drug Screen (VISTA) Comments: Comments: [id number] URINE DRUGList of Drugs Taken or Suspected? [facility] Tjhlaynmmg7011 [place], [address] THC NEGATIVE (Normal) PCP NEGATIVE (Normal) OPIATES [...] TESTING MUST BE ORDERED SEPARATELY. USE TESTMNEMONIC: [facility] 61-Jgs-300148:14 HGB A1C (07183) Comments: PATIENT NOT FASTINGPERFORMED BY: [employer]6370 Wik[facility] LLCCritical access hospital [id number] Hemoglobin A1c 5.6 % (Normal) Range: 4.8-5.6 Comments: . Pre-diabetes: 5.7 - 6.4 Diabetes: >6.4 Glycemic control for adults with diabetes: <7.0 36-Hag-429100:11 URINE KEE CULTURE-IDENTIFICATN Comments: PATIENT NOT FASTINGPERFORMED BY: TouristWayrp Skdgrn7997 Wik[facility] LLCCritical access hospital [id number] Information: SRC:SHAZIA (40983) Antimicrobial MIHEAD (Normal) Comments: S = Susceptible; [...] mL (Abnormal) Urine Final report Culture,Comprehensive (Abnormal) 43-Mnb-432328:42 Urinalysis, Office (84833) UA - LEUKOCYTE ESTERASE Moderate (Normal) UA - NITRITE Negative (Normal) URINE UROBILINGN DENISE TIMED Normal mg/dL (Normal) UA - PROTEIN Negative mg/dL (Normal) UA - PH 5 (Abnormal) UA - BLOOD Hemolyzed Small (Normal) UA - SPECIFIC GRAVITY 1.025 (Normal) UA - KETONES Negative mg/dL (Normal) UA - BILIRUBIN Negative (Normal) UA - GLUCOSE Negative (Normal) 17-Jbf-905291:58 URINE KEE CULTURE-IDENTIFICATN Comments: PATIENT NOT FASTINGPERFORMED BY: [facility] [id number] [facility] [id number] Information: SRC:SHAZIA (83305) Antimicrobial MIHEAD (Normal) Comments: S = Susceptible; [...] mL (Abnormal) Urine Final report Culture,Comprehensive (Abnormal) 68-Szc-553384:45 Urinalysis, Office (39268) UA - LEUKOCYTE ESTERASE Small (Normal) UA - NITRITE Negative (Normal) URINE UROBILINGN DENISE TIMED Normal mg/dL (Normal) UA - PROTEIN Negative mg/dL (Normal) UA - PH 6 (Abnormal) UA - BLOOD Hemolyzed Small (Normal) UA - SPECIFIC GRAVITY 1.030 (Abnormal) UA - KETONES Moderate mg/dL (Normal) UA - BILIRUBIN Small (Normal) UA - GLUCOSE Negative (Normal) 27-Rhp-901400:30 Miscellaneous Lab Procedure Comments: Test(s) Ordered: 509761, [facility]XICOLOGYWestern [facility] Hospital [address]jvucqd[address] [place], [place], [id number] [facility] Comments: [id number] 6+OXYCODONE-BUND (ng/mL)DRUG RESULT SCREEN CUTOFF____ Amphetamines Negat [...] IN LAB CONTAINS ADDITIONAL TEST SITE INFORMATION. 47-Xty-641027:30 Urine Drug Screen (VISTA) Comments: List of Drugs Taken or Suspected? [facility] Nig[address]eretk[address] [place], [address] THC POSITIVE (Abnormal) PCP NEGATIVE (Normal) OPIATES [...] TESTING MUST BE ORDERED SEPARATELY. USE TESTMNEMONIC: [facility] :48 TSH (THYROID STIMULATING Comments: PATIENT NOT FASTINGPERFORMED BY: CB [facility] Cvpggz0801 [address] RoadDublin [place] [id number] HORMONE) (23721) TSH 13.590 {uIU/mL} (Abnormal) Range: 0.450-4.500 :35 TSH (THYROID STIMULATING Comments: PATIENT NOT FASTINGPERFORMED BY: CB [facility] Vnumjm2534 [address] RoadDublin [place] [id number] HORMONE) (36432) TSH 0.080 {uIU/mL} (Abnormal) Range: 0.450-4.500 :35 CJTVK-UMUOVFPNHNM-OBSCS (40970) Comments: PATIENT NOT FASTINGPERFORMED BY: CB [facility] Gkwwts0805 [address] Roadblin [place] [id number] AFP, Serum, Tumor Marker 2.7 ng/mL (Normal) Range: 0.0-8.3 Comments: Katerin ECLIA methodology :35 SPEP (83771) Comments: PATIENT NOT FASTINGPERFORMED BY: [facility] Fhwxgn6837 [address] [facility]in [place] [id number] Information: [id number] Please note: SPRCS (Normal) Comments: Protein electrophoresis scan will follow via computer, mail, orcourier delivery. A/G Ratio 1.1 (Normal) Range: 0.7-1.7 Globulin, Total 3.0 g/dL (Normal) Range: 2.2-3.9 M-Ramana Not Observed g/dL (Normal) Gamma Globulin 1.1 g/dL (Normal) Range: 0.4-1.8 Beta Globulin 1.0 g/dL (Normal) Range: 0.7-1.3 Zjomr-6-Bssvookx 0.6 g/dL (Normal) Range: 0.4-1.0 Cqgxb-9-Wlykqdxj 0.3 g/dL (Normal) Range: 0.0-0.4 Albumin 3.3 g/dL (Normal) Range: 2.9-4.4 Protein, Total, Serum 6.3 g/dL (Normal) Range: 6.0-8.5 2-Qir-454285:10 UPEP (44068) Comments: PATIENT NOT FASTINGPERFORMED BY: [address] [id number] Information: [id number] Please note: SPRCS (Normal) Comments: Protein electrophoresis scan will follow via computer, mail, orcourier delivery. M-Ramana, % Not Observed % (Normal) Gamma Globulin, U 17.4 % (Normal) Beta Globulin, U 30.8 % (Normal) Fitzz-3-Lirjzyis, U 20.9 % (Normal) Uahib-9-Kgvafpnv, U 7.5 % (Normal) Albumin, U 23.4 % (Normal) Protein,Total,Urine 4.9 mg/dL (Normal) 8-Ukn-978244:08 urine immunofixation (87747) Comments: PATIENT NOT FASTINGPERFORMED BY: [address] [id number] Information: SRC:UR [id number] MIGDALIA Interpretation:U UPEIP (Normal) Comments: No monoclonality detected. 0-Gyb-021277:50 Urinalysis, Office (99132) UA - LEUKOCYTE ESTERASE Negative (Normal) UA - NITRITE Negative (Normal) URINE UROBILINGN DENISE TIMED Normal mg/dL (Normal) UA - PROTEIN Negative mg/dL (Normal) UA - PH 6.0 (Normal) Comments: 5.5 UA - BLOOD Negative (Normal) UA - SPECIFIC GRAVITY 1.030 (Abnormal) UA - KETONES Small mg/dL (Normal) UA - BILIRUBIN Negative (Normal) UA - GLUCOSE Negative (Normal) 06-Blf-647390:30 ANTINUCLEAR ANTIBODIES DIRECT Comments: [facility] (refer to report for specific site)refer to report for address and phone number ELIJAH-DIRECT Negative (Normal) Comments: Performed at: [address] [id number] Director: Ren Mcgovern PhD, Phone: [phone] 19-Lda-133767:30 CBC W/Diff, Automated Comments: [facility] [address], [address] Absolute Lymph 2.05 {X10_3/ul} (Normal) [...] Comments: Serial Specimen #1, #2 or #3? [facility] Yythoonkfr[address] [place], [address] GAP 6 (Normal) Range: 5-15 [...] 7-18 GLU 101 mg/dL (Normal) Range: 70-110 67-Lmt-615112:30 CRP Comments: Serial Specimen #1, #2 or #3? [facility] [address]xccb[address] [place], [place], [address] C-REACTIVE PROT < 2.90 mg/L (Normal) Range: 0.0-3.0 Comments: C-Reactive Protein (CRP) provides useful information for thediagnosis, therapy and monitoring of inflammatory processesand associated diseases. For the evaluation of Relative Riskfor Cardiovascular Dise ase, a High Sensitivity CRP (HSCRP)should be ordered. 85-Hso-082728:30 Erythrocyte Sed Rate Comments: [facility] [address]udiycau[address] [place], [place], [id number] SED RATE 20 mm/h (Normal) Range: 0-30 23-Jls-704266:30 Immunofixation Urine Comments: [facility] (refer to report for specific site)refer to report for address and phone number MIGDALIA Urine Test not performed (Normal) Comments: Quantity was not sufficient for analysis.CONTACTED MAHAD AT YOUR FACILITY 11-15-1513-Nov-201524-Qgu-095519:30 Immunofixation, Serum Comments: [facility] (refer to report for specific site)refer to report for address and phone number MIGDALIA RESULT,S Comment (Normal) Comments: No monoclonality detected. IMMUNOGL M 137 mg/dL (Normal) Range: 26-217 IMMUNO A 225 mg/dL (Normal) Range: 87-352 IMMUNO G 1077 mg/dL (Normal) Range: 700-1600 97-Bcw-553950:30 Dola Lambda Light Chains Comments: [facility] (refer to report for specific site)refer to report for address and phone number KAPPA/LAMBDA % 1.03 (Normal) Range: 0.26-1.65 FR LAMBDA LT CH 17.65 mg/L (Normal) Range: 5.71-26.30 FR KAPPA LT CHN 18.21 mg/L (Normal) Range: 3.30-19.40 :30 LDH 201 U/L (Normal) Comments: Serial Specimen #1, #2 or #3? [facility] Uthtmfqnmv0243 [facility]. [place], [place], [address] Range: 84-246 40-Peu-127925:30 Microalb:Creat Ratio,Random UR Comments: [facility] Qihexxxtny0221 [facility]. [place], [place], [address] MALB:CREAT 7.0 {mg/g_CRE} (Normal) MICROALBUMIN,UR 10.3 mg/L (Normal) UR CREAT 148.00 mg/dL (Normal) 66-Grt-544569:30 Protein Electro.Ur-Random Comments: [facility] (refer to report for specific site)refer to report for address and phone number NOTE Comment (Normal) Comments: Protein electrophoresis scan will follow via computer,mail, or help desk rep delivery. M-SPIKE,U Test not performed (Normal) GAMMA GLOB,U Test not performed (Normal) Comments: Test not performed BETA GLOB,U Test not performed (Normal) Comments: Test not performed JCGLX-3-AMVB,U Test not performed (Normal) Comments: Test not performed CJEOA-5-TEUN,U Test not performed (Normal) Comments: Test not performed ALBUMIN,UR Test not performed (Normal) Comments: Test not performed PROTEIN,UR Test not performed mg/dL Comments: Quantity was not sufficient for analysis.CONTACTED MAHAD AT YOUR FACILITY 11-15-15 (Normal) 90-Epn-047479:30 Urinalysis, Routine (Dipstick) Comments: How was Urine Obtained? CLE[facility]ATCHWestern [facility] [address], [place], [address] LEUK ESTERASE 25 /ul (Abnormal) OCCULT BLOOD-UR 25 /ul (Abnormal) NITRITE UR Negative (Normal) UROBILI Normal mg/dL (Normal) PROT DIPSTX Negative mg/dL (Normal) pH UR 5.0 (Normal) Range: 5.0 - 8.0 SP.GR. DIPSTX 1.025 (Normal) Range: 1.002-1.030 KETONE UR Negative mg/dL (Normal) BILIRUBIN URINE Negative mg/dL (Normal) GLUCOSE, UR Normal mg/dL (Normal) CLARITY Clear (Normal) COLOR Yellow (Normal) 56-Euy-344352:00 Cytology, Body Fluid / CSF Comments: Specimen Source: [facility] [address] [place] [address], [id number] CYTOLOGY,BF/CSF SEE PATHOLOGY REPORT Comments: Specimen submitted to Anatomical Pathology Department [facility]. (Normal) 08-Pvf-936182:00 CYTOSPIN ON FLUID See Note (Normal) Comments: [address], [address] Comments: Patient: SADIA LONGO : 1950 (64/F) Acct Num: [id number] Phys: Veronica GARZA,Yung Unit Num: [id number] Loc: LABSPEC Specimen: [id number] Received: 08/31/15 - 1314 Spec Type: CYSPIN FL TISSUES TISSUES: CULTURE RESULTS No results available. CYTOLOGY GROSS Received is 10 ml of clear gold fluid labeled with the patient's name and and designat ed per the requisition as urine. Submitted for cytology preparation. / 08/31/15 TC:5 CPT:49730 CYTOLOGY STUDY Slides are reviewed. The specimen consists of benign squamous cells, benign urothelial cells and neutrophils. DIAGNOSIS CYTOLOGY Urine for cytology (cytospin): Negative for malignant cells. SJ:meliza 09/01/15 HEADER OPERATION: Not noted PRE-OP DIAGNOSIS: Hematu johnnie TISSUE SUBMITTED: Urine cytology Signed Samy Zayas 09/01/15 <signature on file> 70-Pwy-986086:04 Urinalysis, Office (17126) UA - LEUKOCYTE ESTERASE Negative (Normal) UA - NITRITE Negative (Normal) URINE UROBILINGN DENISE TIMED Normal mg/dL (Normal) UA - PROTEIN Negative mg/dL (Normal) UA - PH 5 (Abnormal) UA - BLOOD Hemolyzed Trace (Normal) UA - SPECIFIC GRAVITY 1.030 (Abnormal) UA - KETONES Negative mg/dL (Normal) UA - BILIRUBIN Negative (Normal) UA - GLUCOSE Negative (Normal) 69-Vza-911550:52 URINE KEE CULTURE-IDENTIFICATN Comments: PATIENT NOT FASTINGPERFORMED BY: [facility]CoNewton Medical CenterShmdmh0836 [facility] [id number] Information: [id number] (94881) Antimicrobial MIHEAD (Normal) Comments: S = Susceptible; [...] pain syndrome) Planned Observations T4, FREE (THYROXINE) (01626)Indication: Abnormal thyroid function test On: :59 Request T3, FREE (TRIDOTHYRONINE) (19658)Indication: Abnormal thyroid function test On: :59 Request TSH (THYROID STIMULATING HORMONE) (45434)Indication: Abnormal thyroid function test On: :59 Request URINE KEE CULTURE-IDENTIFICATN (23227)Indication: Urinary frequency On: :29 Request HGB A1C (46164)Indication: Paresthesia of arm On: : Request HEPATITIS C ANTIBODY (01222)Indication: Paresthesia of arm On: :04 Request ELIJAH (ANTINUCLEAR ANTIBODY) (05092)Indication: Paresthesia of arm On: : Request Serum Protein Electrophoresis (SPEP) (78782)Indication: Paresthesia of arm On: : Request VITAMIN B-12 (CYANOCOBALAMIN) (64127)Indication: Paresthesia of arm On: :04 Request METABOLIC PANEL, COMPREHENSIVE (31329)Indication: Paresthesia of arm On: : Request CBC & PLATELETS (AUTO) (75320)Indication: Paresthesia of arm On: : Request T4, FREE (THYROXINE) (91577)Indication: Acquired hypothyroidism On: :21 Request TSH (THYROID STIMULATING HORMONE) (12947)Indication: Acquired hypothyroidism On: : Request T3, FREE (TRIDOTHYRONINE) (04147)Indication: Acquired hypothyroidism On: :21 Request Blood Glucose , Office (37760)Indication: Diabetes mellitus type II, controlled On: :33 Request Lipid Panel (62289)Indication: High triglycerides On: 7-Sck-573196:10 Request CALCIFEDIOL (75801)Indication: Osteopenia On: :51 Request CBC, Platelets & Auto Diff (46211)Indication: Hypertension On: :49 Request Lipid Panel (01633)Indication: Hypertension On: :49 Request Metabolic Panel, Comprehensive (27290)Indication: Hypertension On: Request Urinalysis, Office (69716)Indication: Hypertension On: 49 Request CALCIFEDIOL (07402)Indication: Vitamin D deficiency On: :55 Request TSH (THYROID STIMULATING HORMONE) (86055)Indication: Acquired hypothyroidism On: : Request CBC, Platelets & Auto Diff (27035)Indication: Diabetes mellitus type II, controlled On: :51 Request Metabolic Panel, Comprehensive (37177)Indication: Diabetes mellitus type II, controlled On: :51 Request Metabolic Panel, Comprehensive (41891)Indication: Fatty liver On: :24 Request VEVPK-YNXGQSTIWQS-KTVFI (88228)Indication: Fatty liver On: 70-Hgl-063221:23 Request serum free light chains (11329)Indication: Swelling of both lower extremities On: :53 Request UPEP (55938)Indication: Swelling of both lower extremities On: :53 Request urine immunofixation (34641)Indication: Swelling of both lower extremities On: 53 Request serum immunofixation (99252)Indication: Swelling of both lower extremities On: :53 Request URINALYSIS (27743)Indication: Swelling of both lower extremities On: :53 Request MICROALBUMIN: CREATININE RATIO (14607) AND (84634)Indication: Swelling of both lower extremities On: :53 Request BLOOD SMEAR, W/O MANUAL DIFF WBC (15552)Indication: Lymphadenopathy On: :45 Request LDH (LD) (LACTATE DEHYDROGENASE) (03737)Indication: Lymphadenopathy On: :42 Request ELIJAH (ANTINUCLEAR ANTIBODY) (30809)Indication: Lymphadenopathy On: :42 Request C-REACTIVE PROTEIN (26465)Indication: Lymphadenopathy On: :42 Request SED RATE ERYTHROCYTE (18634)Indication: Lymphadenopathy On: 18-Yib-877117:42 Request METABOLIC PANEL, COMPREHENSIVE (68620)Indication: Lymphadenopathy On: :42 Request CBC, Platelets & Auto Diff (10739)Indication: Gingivitis On: 28-Mcs-962565:37 Request METABOLIC PANEL, COMPREHENSIVE (84476)Indication: High triglycerides On: 13-Gsz-557140:55 Request LIPID PANEL (32029)Indication: High triglycerides On: 68-Mff-438371:55 Request TSH (71931)Indication: Acquired hypothyroidism On: 15-Bap-290272:54 Request VITAMIN B-12 (CYANOCOBALAMIN) (59297)Indication: Memory change On: :54 Request TSH (46604)Indication: Acquired hypothyroidism On: 9-Ugv-702802:54 Request METABOLIC PANEL, COMPREHENSIVE (06833)Indication: Diabetes mellitus type II, controlled On: 1-Env-213727:53 Request CBC with auto diff (18339)Indication: Diabetes mellitus type II, controlled On: 3-Cfb-910828:53 Request LIPID PANEL (22470)Indication: Diabetes mellitus type II, controlled On: 2-Kbp-869083:53 Request MICROALBUMIN: CREATININE RATIO (21333) AND (36637)Indication: Diabetes mellitus type II, controlled On: 7-Qgj-050977:53 Request SED RATE ERYTHROCYTE (78414)Indication: Fatigue On: 66-Sez-837983:51 Request C-REACTIVE PROTEIN (93127)Indication: Fatigue On: 36-Tcx-707208:51 Request FERRITIN (89259)Indication: Fatigue On: 24-Nev-578006:51 Request IRON (06913)Indication: Fatigue On: 45-Rzi-202367:51 Request ALDOLASE (90435)Indication: Fibromyalgia (Renamed from Diffuse myofascial pain syndrome) On: 09-Mlk-582313:51 Request Creatine Kinase Total (94430)Indication: Fibromyalgia (Renamed from Diffuse myofascial pain syndrome) On: 65-Qll-278230:51 Request SPEP (41996)Indication: Fatigue On: 08-Lxi-746033:51 Request UPEP (92438)Indication: Fatigue On: :51 Request FOLIC ACID SERUM (36745)Indication: Fatigue On: :51 Request VITAMIN B-12 (CYANOCOBALAMIN) (31223)Indication: Fatigue On: :51 Request URINALYSIS, W/ MICRO (05036)Indication: Fatigue On: :50 Request METABOLIC PANEL, COMPREHENSIVE (46915)Indication: Fatigue On: :50 Request Planned Procedures Ultrasound - RenalBy: Oscar ANGELES, On: 01-Mar-2018 Intent Anjelica Salguero CNP [place] SCREENING DIGITAL TOMOSYNTHESIS OF On: 31-Jul-2017 Intent BREAST (92987)By: Oscar ANGELES PalomaJasper Salguero CNP [facility] ELECTROCARDIOGRAM, COMPLETE (ECG) On: 02-May-2017 Intent (50267)By: Anjelica Salguero CNP, CNP [place] ELECTROCARDIOGRAM, COMPLETE (ECG) On: 23-Mar-2017 Intent (68292)By: Oscar ANGELES PalomaJasper Salguero CNP [facility] DEXA SCAN AXIAL SKELETON (95478)By: On: 23-Jan-2017 Intent Oscar ANGELES PalomaJasper Salguero CNP [facility] Ear Irrigation (64583)By: Oscar On: 17-Oct-2016 Intent KARTHIK PalomaJasper Salguero CNP [place] Wax CurettesBy: Anjelica Salguero CNP On: 17-Oct-2016 Intent Anjelica Salguero CNP MAMMOGRAM BREAST BILATERAL SCREENING On: 14-Jul-2016 Intent DIGITAL (25961)By: Oscar ANGELES PalomaJasper Salguero CNP [facility] Ultrasound - LiverBy: Oscar ANGELES, On: 12-Nov-2015 Intent Anjelica Salguero CNP [place] CT - Chest (Without Contrast)By: On: 08-Sep-2015 Intent Arabella Parish DO PROLIA (J0897)By: Jem On: 24-Aug-2015 Intent Arabella WONG Comments: Lot:[id number]:12/08Dose:60mlRoute:sub qSite:l armGiven By:SARIKA signed CHEST CT WITHOUT CONTRAST (74749)By: On: 06-Jul-2015 Intent Arabella Parish DO Comments: HIGH RESOLUTION CT - Chest (Without Contrast)By: On: 29-Jun-2015 Intent Arabella Parish DO Comments: HIGH RESOLUTION Radiology - ChestBy: Arabella Parish DO On: 07-Jun-2015 Intent A Comments: PA&L CT - Abdomen & Pelvis (Without On: 04-Jun-2015 Intent Contrast)By: Arabella Parish DO Comments: stat call wet read MAMMOGRAM, SCREENING, BOTH BREAST On: 04-Jun-2015 Intent (68258)By: Arabella Parish DO MAMMOGRAM, SCREENING, BOTH BREAST On: 26-Feb-2015 Intent (03476)By: Arabella Parish DO Flu Vaccine (Quadrivalent) 84787Hc: On: 26-Feb-2015 Intent Arabella Parish DO ADMINISTRATION OF INFLUENZA VIRUS On: 26-Feb-2015 Intent VACCINE (G0008)By: Arabella Parish DO Comments: Lot #[id number]-L dltd, IMDose prefilled syringegiven by:CODY Summers and [...] 31.0-31.9,adult Fatigue : DISCONTINUED - LIPID PANEL (99205) Indication: Fatigue Nonsmoker : How to access [...] liver : DISCONTINUED - METABOLIC PANEL, COMPREHENSIVE (33232) Indication: Fatty liver Fatty liver : DISCONTINUED - YMGBK-HNVSQOSYRBJ-ACLKY (89540) Indication: Fatty liver Depression : DISCONTINUED - CALCIFEDIOL (46106) Indication: Depression Nonsmoker : How to access [...] (). Note for Discuss procedure results: Saw Traffic Representative Dr. Skyler Odonnell at [facility] now needs cardiopulmonary technician, End: 01-May-2017 15:42 [ADDITIONAL REASON] Follow up [...] complaints (pre-cancerous areas on face,. IPL trillium [place]), has decreased energy level and is sleeping [...] weight stable- went to sisters wedding in [place] with help of daughter and felt singificiantly [...] thinks maybe with bm- happened when in [place]- drinking more water- not much fiber - [...] peanut butter - no meat some cheese lao yogurt- saw [facility] and ordered sleep study [...]
--- OUTSIDE RECORDS SUMMARY | 2018-05-15 06:20 | XMS RPT_ITS | Continuity of Care Document ---
:1950 Author Organization [facility] Address [address] [facility] [address] [place] [address] Phone Care Team Providers Name Role Phone Sydneefer KARTHIK, Paloma Unavailable Mason Garnett Unavailable Milton GARZA, Neftaly Hutchinson Unavailable Garth GARZA, Yaniv King Unavailable Luis E Earl Unavailable Khushbu Cevallos Unavailable Unavailable Slarb CLINICAL DOCUMENTATION IMPROVEMENT SPECIALIST, Dora Unavailable Unavailable Long CLINICAL DOCUMENTATION IMPROVEMENT SPECIALIST, Bina L Unavailable Unavailable Unavailable Unavailable Problems Name Dates Details Abdominal pain, acute, left lower quadrant (Renamed from Acute abdominal pain in left lower quadrant) (R10.32, 789.04) Status: Active Abnormal CXR (R93.89, 793.2) Status: Active Abnormal thyroid function test (R94.6, 794.5) Comments: to get labs week of Mar 24TSH on Mar 01 was .02 Status: Active Abnormal TSH (R79.89, 790.6) Comments: was 0.08 in Nov now 18.99 labs done at [facility] will repeat with our lab today andnow seeing Radhagudelia most recent tsh undectable per pt.she is asking for another specialist or myself to follow Status: Active Acquired hypothyroidism (E03.9, 244.9) Comments: Seeing Dr. Lobato in [place] on tircent they monitor Status: Active Allergic [...] Comments: seen by Dr. Kwan Status: Active Cystitis (N30.90, 595.9) Comments: was treated with macrobid bid finished Mar 08 for Ecoli Status: Active Deliveries (Parity) Comments: 3. Status: Active Depression (F32.9, 311) Comments: Sees Dr. 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 aErl Status: Active Hiatal hernia (K44.9, 553.3) Status: Active High triglycerides (E78.1, 272.1) Comments: was given script from [facility] saying to take fenofibrate one week, this is not correct sending new script [facility] Status: Active History of TIA (transient ischemic attack) (Z86.73, V12.54) Status: Active Hypertension (I10, 401.9) Comments: new diagnosis, was being treated initially by endocrine, will take over [facility] work up and management labs, ekg todaytakes [...] Urinary frequency (R35.0, 788.41) Status: Active Urinary frequency (R35.0, 788.41) Status: [...] Quantity: 30 {Tablet} Refills: 0 Ordered:11-Aug-2014 Arabella A Start : 07-Jul-2014 Active CULTURELLE (Oral Capsule) 1 cap daily Active Cyclobenzaprine HCl 10 MG Oral Tablet 1 (one) Tablet qhs for 30 days Quantity: 30 {Tablet} Refills: 0 Ordered:14-Jul-2016 Oscar DEAN OF EDUCATION, Anjelica Moody KARTHIK Anjelica Hutchinson Start : 14-Jul-2016 Active Comments:Dr Alvarez EpiPrem 2-Alfredo 0.3 MG/0.3ML Injection Solution Auto-injector 1 (one) Soln Auto-inj Soln Auto-inj as needed for 0 days Quantity: 1 {Dose_Pack} Refills: 1 Ordered:14-Jul-2016 Oscar KARTHIK, Anjelica Moody KARTHIK Anjelica Hutchinson Start : 14-Jul-2016 Active Comments:Medication taken as needed. Generic Please Flonase Allergy Relief 50 MCG/ACT Nasal Suspension 2 (two) [place] daily for 0 days Quantity: 1 {[place]} Refills: 0 Ordered:05-Feb-2018 Khushbu Cevallos Start : 02-Nov-2017 Active Macrobid 100 MG Oral Capsule 1 (one) Capsule bid for 7 days Quantity: 14 {Capsule} Refills: 0 Ordered:12-Mar-2018 Oscar DEAN OF EDUCATION, Anjelica Moody CNP Anjelica Hutchinson Start : 12-Mar-2018 Active Metoprolol Succinate ER 50 MG Oral Tablet Extended Release 24 Hour 1 (one) Tablet daily for 0 days Quantity: 30 {Tablet} Refills: 0 Ordered:02-Nov-2017 Oscar ANGELES, Anjelica Moody CNP Anjelica Hutchinson Start : 02-Nov-2017 Active Comments:Endo Morphine Sulfate 15 MG Oral Tablet 1 qd (15 MG) Active Tirosint 75 MCG Oral Capsule 1 (one) Capsule daily for 0 days Quantity: 30 {Capsule} Refills: 6 Ordered:12-Mar-2018 Oscar ANGELES Anjelica Moody CNP Anjelica Hutchinson Start : 12-Mar-2018 Active TRAZODONE HCL, 300MG (Oral Tablet) 1 (one) Tablet Tablet q hs for 30 days Quantity: 30 {Tablet} Refills: 0 Ordered:11-Aug-2014 Arabella A Start : 07-Jul-2014 Active VITAMIN B12, 100MCG (Oral Tablet) 1 tab daily (100 MCG) Active VITAMIN B-COMPLEX (Oral Tablet) 1 tab daily Active Vitamin D3 Super Strength 2000 UNIT Oral Capsule 1 (one) Capsule daily for 0 days Quantity: 30 {Capsule} Refills: 0 Ordered:17-Oct-2016 Oscar ANGELES Anjelica Heidy ANGELES, Anjelica Hutchinson Start : 17-Oct-2016 Active Cheratussin AC 100-10 MG/5ML Oral Syrup 4 Milliliter qhs prn cough for 0 days Quantity: 120 {Milliliter} Refills: 0 Ordered:31-Jul-2017 Bina Liriano LPN Mary Start : 01-May-2017 End : 31-Jul-2017 Inactive Doxycycline Hyclate 100 MG Oral Tablet Delayed Release 1 (one) Tablet DR bid for 10 days Quantity: 20 {Tablet} Refills: 0 Ordered:23-Nov-2015 Oscar ANGELES Anjelica Heidy ANGELES, Anjelica Hutchinson Start : 23-Nov-2015 End : 03-Dec-2015 Inactive Embeda 20-0.8 MG Oral Capsule Extended Release 1 (one) Capsule daily per Dr Basali for 30 days Quantity: 30 {Capsule} Refills: 0 Ordered:31-Jul-2017 Heri GREEN Bina Mary Start : 01-May-2017 End : 31-Jul-2017 Inactive Fenofibrate Micronized 67 MG Oral Capsule 1 (one) Capsule once daily with a meal for 0 days Quantity: 90 {Capsule} Refills: 0 Ordered:31-Jul-2017 Heri GREENJoeyn Mary Start : 01-May-2017 End : 31-Jul-2017 Inactive MetroNIDAZOLE 250 MG Oral Tablet 1 (one) Tablet tid for 7 days Quantity: 21 {Tablet} Refills: 0 Ordered:12-Nov-2015 Oscar ANGELES Anjelica Heidy ANGELES, Anjelica Hutchinson Start : 12-Nov-2015 End : 19-Nov-2015 Inactive Nitrofurantoin Macrocrystal 100 MG Oral Capsule 1 (one) Capsule q12 hrs x 5 days for 5 days Quantity: 10 {Capsule} Refills: 0 Ordered:11-Feb-2018 Oscar ANGELES Anjelica Heidy ANGELES Anjelica Hutchinson Start : 11-Feb-2018 End : 16-Feb-2018 Inactive Comments:with food Omeprazole 40 MG Oral Capsule Delayed Release 1 (one) Capsule Capsule daily for 0 days Quantity: 30 {Capsule} Refills: 3 Ordered:31-Jul-2017 Bina Liriano LPN L Start : 23-Mar-2017 End : 31-Jul-2017 Inactive PROLIA, 60MG/ML (Subcutaneous Solution) 1 inj q 6 months (60 MG/ML) Inactive PROzac 10 MG Oral Capsule 1 (one) Capsule Capsule twice weekly for 30 days Quantity: 15 {Capsule} Refills: 0 Ordered:14-Jul-2016 Oscar DEAN OF EDUCATION, Anjelica VILLAFANAmichelle ANGELES, Paloma Start : 14-Jul-2016 End : 13-Aug-2016 Inactive SAVELLA, 50MG (Oral Tablet) 1 (one) Tablet Tablet bid for 90 days Quantity: 180 {Tablet} Refills: 3 Ordered:08-Sep-2015 Nemo Johnson Start : 26-Feb-2015 End : 08-Sep-2015 Inactive Tetracycline HCl 500 MG Oral Capsule 1 (one) Capsule daily for 0 days Quantity: 30 {Capsule} Refills: 0 Ordered:05-Feb-2018 Oscar KARTHIK, Anjelica Aguayosatish ANGELES, Paloma Start : 02-Nov-2017 End : 05-Feb-2018 Inactive Tirosint 100 MCG Oral Capsule 1 one daily and 2 on wednesdays (100 MCG) Inactive VESICARE, 10MG (Oral Tablet) 1 (one) [...] fibro very hyperesthestic and i think weak giovanni e sitting for years according to Status: [...] adenomyosis and polycystic ovaries- Date Value Details 01-Mar-2018 Emergency Department Summary Result: Comments: See Note; NOTES: [facility] Medical Records Department [address] [place] [address] Emergency Department Summary 03/01/18 1431 MR#: [id number] Acct: [id number] Name: SADIA LONGO Rep #: [id number] : 1950 67 From: Sascha Addison MD [...] of depression This note was generated with [employer] dictation software. It may co ntain incorrect words, spelling, and punctuation that were not noted in review of the chart prior to signing ED Disposition - Plan for ED Patient: Chief Complaint: Numb/Ting Referrals: Anjelica Salguero NP -C [Primary Care Provider] - What to do if you have Problems For any increased pain, shortness of breath, bleeding, nausea or vomiting, chest pain, or any unexpected problems, contact your Primary C are Provider. Call [facility] ([phone]) or report to the closest Emergency Room. Call 911 if necessary. 03/01/18 1437 <Electronically signed by Sascha Addison MD> Date _ Sascha Addison MD Cosigner Signature (If Indicated): Date CC: Anjelica Salguero NP 01-Mar-2018 Brain/Head without Contrast Result: Comments: See Note; NOTES: [facility] Imaging Services [address] [place] [address] Brain/Head without Contrast MR#: [id number] Acct: [id number] Name: SADIA LONGO Rep #: [id number] : 1950 F 67 From: Xu Davila MD PCP: Anjelica Salguero NP Status: REG ER Study: Brain/Head without Contrast Date of Exam: 03/01/18 Exam# [id number] Ordering Dr: Sascha Addison MD STUDY : [...] of intravenous contrast material. Individualized dose optimization jenny ruffin were used for this CT. COMPARISON: Comparison [...] Xu Davila MD at 14:04 EST Tel [phone], Service support [phone]- [phone], CC: Anjelica Salguero NP; Sascha Addison MD Cold Header Operator: Signed 22-Aug-2017 SCREENING MAMM (CAD), BILAT Result: Comments: See Note; NOTES: [facility] Imaging Services [address] [place] [address] SCREENING MAMM (CAD), BILAT MR#: [id number] Acct: [id number] Name: SADIA LONGO Rep #: [id number] : 1950 F 66 From: Xu Davila MD PCP: Anjelica Salguero NP Status: REG CLI Study: SCREENING MAMM (CAD), BILAT Date of Exam: 08/22/17 Exam# [id number] Ordering Dr: Anjelica Salguero MAMMO GRAPHY - [...] biopsy of a clinically suspicious abnorm ality. [id number] Electronically Signed: Xu Davila MD at 9:48 EDT Tel [phone], Service support , CC: Anjelica Salguero NP Cold Header Operator: Signed 15-Jun-2017 Echocardiogram Complete Result: Comments: See Note; NOTES: [facility] Cardiovascular Services [address] [place] [address] Echo Complete 06/15/17 0933 MR#: [id number] Acct: [id number] Name: SADIA LONGO Rep #: [id number] : 1950 66 From: Yaniv Liang MD Attending Dr: Yaniv Liang MD Status: REG CLI Ordering Dr: Yaniv Liang MD Date: 06/15/17 Location: [facility] Sex: F C Admitted: Reason Fo [...] Date Yaniv Liang MD CC: Anjelica Salguero WOODS OVERSEER; Yaniv mera MD Date Dictated: 06/15/17 0933 Date Transcribed: 06/15/171642 Cold Header Operator: Signed 15-Jun-2017 Stress Report Result: Comments: See Note; NOTES: [facility] Cardiovascular Services [address] [place] [address] MR#: [id number] Acct: [id number] Name: SADIA LONGO Rep #: [id number] : [birth year] 66 From: Yaniv Liang MD [...] of 92%. This note was generated with Targeted Instant Communicationsation software. It may contain incorrect words, spelling, and punctuation that were not noted in checking the note before signing. 8 1019 <Electronically signed by Yaniv Liang MD> Date Yaniv Liang MD CC: Ajnelica Salguero NP; Yaniv Liang MD Date Dictated: 06/15/17 1014 Date Transcribed: 06/15/17 1014 Cold Header Operator: PM Signed 13-Jun-2017 Lumbar Spine 2 or 3 Views Result: Comments: See Note; NOTES: [facility] Imaging Services [address] [place] [address] Lumbar Spine 2 or 3 Views MR#: [id number] Acct: [id number] Name: SADIA LONGO Rep #: [id number] : 1950 F 66 From: Robert Saba DO PCP: Anjelica Salguero NP Status: REG CLI Study: Lumbar Spine 2 or 3 Views Date of Exam: 06/13/17 Exam# [id number] Ordering Dr: Yung Alvarez MD STUDY: X-RAY [...] acute bony abnormality. Electronically Signed: Satish Saba at 15:05 EST Tel , Service support , CC: Anjelica Salguero WOODS OVERSEER; Yung Alvarez MD Cold Header Operator: Signed 31-May-2017 Cardiology Visit Report Result: Comments: See Note; NOTES: [facility] [address] [place] [address]. [address] [place] [address] OFFICE VISIT Date of Service: 05/31/17 MR#: [id number] Acct: [id number] Name: SADIA LONGO Rep #: [id number] : 1950 Provider: Yaniv Liang MD Age/Sex: 66/F Location: [facility] Status: Signed HPI HPI Details: SADIA LONGO, is a 66 F who presents to the office today for for outpatien t cardiovascular consultation based on concerns of shortness of breath/dyspnea, chest discomfort, and fatigue superimposed upon a reported history of underlying CAD. She states she has previously been e valuated by Dr. Murray Patterson of cardiology in the [place], [place] area. She notes in the past [...] of non-cardiovascular issues. Based upon notes from [facility] from 06/16/2012 it appears at that [...] 60 mg/mL subcutaneous syringe 60 mg SC [id number] 05/30/17 [Hi story Confirmed 05/31/17] epinephrine 0.3 [...] mg PO QDAY 05/31/17 [History Confirmed ] PFSH Medical History Palpitations (Acute) SOB (shortness of [...] to this approach. Follow Up 6 Weeks (PA/WOODS OVERSEER) Coding Level of Care Code Off vis,new,level [...] Signature: Date (if applicable) CC: Anjelica Salguero WOODS OVERSEER 31-May-2017 12 Lead EKG performed by RUTHY Result: Comments: See Note; NOTES: [facility] [address] [place] [address] 12 Lead EKG performed by [facility] 05/31/17 1413 MR#: [id number] Acct: [id number] Name: SADIA LONGO Rep #: [id number] : 1950 66 From: Yaniv Liang MD Attending Dr: Yaniv Liang MD Status: DEP AMB Ordering Dr: Yaniv Liang MD Date: 05/31/17 Location: [facility] Sex: F C Admitted: BMS/12 Lead EKG performed by [facility] ECG Report Interpretation Sinus Rhythm Poor R wave progressionElectronically signed on 05/31/2017 at 16:10 by Esvin Liang aul 05/31/17 1612 Date Yaniv Liang MD CC: Anjelica Salguero NP Date Dictated: 05/31/17 1413 Date Transcribed: 05/31/171412 Cold Header Operator: PM Signed 29-Mar-2017 Emergency Department Summary Result: Comments: See Note; NOTES: [facility] Medical Records Department [address] [place] [address] Emergency Department Summary MR#: [id number] Acct: [id number] Name: RAMAKRISHNA LONGO Rep #: [id number] : 1950 66 From: Liam Whalen MD PCP: Anjelica Salguero NP Status: REG ER DATE OF SERVICE: 03/23/2017 HISTORY OF PRESENT ILLNESS: This patient who sees Anjelica Donissatish reports eun t she forgot her cane [...] COURSE: The patient w as treated with [place], placed in a walking boot. TREATMENT PLAN: The patient will be discharged with instructions to follow up with production cost estimator in 1 week if not improving. DISPOSITION: Home, improved, stable condition. IMPRESSION: Left foot sprain. Liam Whalen MD C C: Anjelica Salguero T: NTS JOB: [id number] 03/29/17 0650 <Electronically signed by Liam Whalen MD> Date _ Liam Whalen MD Cosigner Signature (If Indicated): Date CC: Anjelica Salguero WOODS OVERSEER Date Dictated: 03/23/172102 D ate Transcribed: 03/23/172102 Cold Header Operator: Signed 13-Feb-2017 Dexa Bone Density Study (HP) Result: Comments: See Note; NOTES: [facility] Imaging Services [address] [place] [address] Dexa Bone Density Study (HP) MR#: [id number] Acct: [id number] Name: SADIA LONGO Rep #: [id number] : 1950 F 66 From: Xu Davila MD PCP: Anjelica Salguero Status: REG CLI Study: Dexa Bone Density Study (HP) Date of Exam: 02/13/17 Exam# [id number] Ordering Dr: Anjelica Salguero STUDY: DUAL ENERGY [...] Xu Davila MD at 14:52 EDT Tel [phone], Service support , CC: Anjelica Salguero Cold Header Operator: Signed 26-Jan-2017 Spine Lumbar (Routine) Result: Comments: See Note; NOTES: [facility] Imaging Services [address] [place] [address] Spine Lumbar (Routine) MR#: [id number] Acct: [id number] Name: SADIA LONGO Rep #: [id number] : 1950 F 66 From: Mason Gilliam MD PCP: Anjelica Salguero Status: REG CLI Study: Spine Lumbar (Routine) Date of Exam: 01/26/17 Exam# [id number] Ordering Dr: Yung Alvarez MD STUDY: MRI [...] , CC: Anjelica Salguero; Yung Alvarez MD Cold Header Operator: Signed 02-Mar-2016 Cerv Spine 2 or 3 Views Result: Comments: See Note; NOTES: [facility] Imaging Services [address] [facility] [place] [address] Verdana 4d Cerv Spine 2 or 3 Views MR#: [id number] Acct: [id number] Name: SADIA LONGO Dennis Rep #: [id number] : 1950 F 65 From: Marshall Landaverde DO PCP: Anjelica Salguero Status: REG CLI Study: Cerv Spine 2 or 3 Views Date of Exam: 03/02/16 Exam# [id number] Ordering Dr: Yung Alvarez MD STUDY : [...] Marshall Landaverde DO at 23:01 EST Tel [phone], Service support [phone], CC: Anjelica Alvarez MD Cold Header Operator: Signed 02-Mar-2016 Lumbar Spine 2 or 3 Views Result: Comments: See Note; NOTES: [facility] Imaging Services [address] [place] [address] Verdana 4d Lumbar Spine 2 or 3 Views MR#: [id number] Acct: [id number] Name: SADIA LONGO Rep #: [id number] : 1950 F 65 From: Marshall Landaverde DO PCP: Anjelica Salguero Status: REG CLI Study: Lumbar Spine 2 or 3 Views Date of Exam: 03/02/16 Exam# [id number] Ordering Dr: Yung Alvarez MD S TUDY: [...] tissue structures are unremarkable. ORD ER #: [id number] RAD/Lumbar Spine 2 or 3 Views IMPRESSION: Stable degenerative changes of the lumbar spine. Electronically Signed: Marshall Landaverde DO at 23:10 EST Tel [phone], Service support [phone], CC: Anjelica Alvarez MD Cold Header Operator: Signed 16-Nov-2015 Liver Result: Comments: See Note; NOTES: [facility] Imaging Services [address] [place] [address] Verdana 4d Liver MR#: [id number] Acct: [id number] Name: SADIA LONGO Rep # : [id number] : 1950 F 64 From: Apryl Melendez MD PCP: Arabella Parish DO Status: REG CLI Study: Liver Date of Exam: 11/16/15 Exam# [id number] Ordering Dr: Anjelica Salguero STUDY: ABDOMINAL ULTRASOU [...] hydronephrosis. CC: Anjelica Salguero; Arabella Parish DO Cold Header Operator: Signed 16-Nov-2015 Liver Result: Comments: See Note; NOTES: [facility] Imaging Services [address] [place] [address] Verdana 4d Liver MR#: [id number] Acct: [id number] Name: SADIA LONGO Rep # : [id number] : 1950 F 64 From: Apryl Melendez MD PCP: Arabella Parish DO Status: REG CLI Study: Liver Date of Exam: 11/16/15 Exam# [id number] Ordering Dr: Anjelica Salguero STUDY: ABDOMINAL ULTRASOU [...] at 8:20 EDT Tel , Service support [phone], CC: Anjelica Salguero; Arabella Parish DO Cold Header Operator: Signed 03-Sep-2015 Kidney and Bladder Result: Comments: See Note; NOTES: [facility] Imaging Services [address] [place], [place] [address] [address] Verdana 4d Kidney and Bladder MR#: [id number] Acct: [id number] Name: LISA LONGO NTHIA Dennis Rep #: [id number] : 1950 F 64 From: Bonilla Belle DO PCP: Arabella Parish DO Status: REG CLI Study: Kidney and Bladder Date of Exam: 09/03/15 Exam# [id number] Ordering Dr: Cosmo Martin MD STUDY: RENAL [...] Bonilla Belle DO at 23:38 EDT Tel [phone], Service support [phone], CC: Arabella Parish DO; Cosmo Martin MD Cold Header Operator: Signed 23-Jul-2015 Bilat Scrn Digital AND CAD Result: Comments: See Note; NOTES: [facility] Imaging Services [address] [place] [address] Verdana 4d Bilat Scrn Digital AND CAD MR#: [id number] Acct: [id number] Name: SADIA LONGO Rep #: [id number] : 1950 F 64 From: Xu Davila MD PCP: Arabella Parish DO Status: REG CLI Study: Bilat Scrn Digital AND CAD Date of Exam: 07/23/15 Exam# [id number] Boogie phan Dr: Arabella Parish DO MAMMOGRAPHY [...] bio psy of a clinically suspicious abnormality. [id number] Electronically Signed: Xu Davila MD at 13:17 EDT Tel [phone], Service support [phone], CC: Arabella Parish DO Cold Header Operator: Signed 08-Jun-2015 Chest PA and Lateral Result: Comments: See Note; NOTES: [facility] Imaging Services [address] [place] [address] Verdana 4d Chest PA and Lateral MR#: [id number] Acct: [id number] Name: SADIA LONGO Rep #: [id number] : 1950 F 64 From: Brock Wright MD PCP: Arabella Parish DO Status: REG CLI Study: Chest PA and Lateral Date of Exam: 06/08/15 Exam# [id number] Ordering Dr: Rasta Parish DO STUDY: X-RAY [...] FACR at 20:39 EST , Service support [phone], RAD/Chest PA and Lateral IMPRESSION: Mild interstitial changes in the lower lobes. No acute infiltrates or pleural effusions noted Electronically Signed: Brock Wright MD, FACR at 20:39 ES T , Service support [phone], CC: Arabella Parish DO Cold Header Operator: Signed 04-Jun-2015 Abdomen/Pelvis without Cont Result: Comments: See Note; NOTES: [facility] Imaging Services [address] [place] [address] Verdana 4d Abdomen/Pelvis without Cont MR#: [id number] Acct: [id number] Name: SADIA LONGO Rep #: [id number] : 1950 F 64 From: Bonilla Belle DO PCP: Arabella Parish DO Status: REG CLI Study: Abdomen/Pelvis without Cont Date of Exam: 06/04/15 Exam# [id number] Ordering Dr: Arabella Gaming DO STUDY: CT [...] Bonilla Belle DO at 19:11 EST Tel [phone], Service support , CC: Arabella Parish DO Cold Header Operator: Signed 27-Jul-2014 Sleep Study Report Result: Comments: See Note; NOTES: [facility] [address] [place] [address] Unattended Sleep Study MR#: [id number] Acct: [id number] Name: SADIA LONGO ep #: [id number] : 1950 63 From: Mason Garnett MD PCP: Arabella Parish DO Status: REG CLI Ordering Dr.: Mason Garnett MD Date: 07/21/14 Sex: F C APNEA LINK PORTABLE POLYSOMNOGRAM: REFERRI PHYSICIAN: Dr. Mason Garnett. SLEEP HISTORY: The patient is a 63-year-old female with a calculated body mass index of 28.6 and an [place] Sleepiness Scale score of 20/24. The patient [...] version). Please note that a reference to [facility] in this report is consistent [...] subjective complaints, and elevated score on the [place] Sleepiness Scale are not explained by the [...] smoker Vital Signs Date Test Result Details :31 Temperature 97.7 f Comments: Method: Temporal Pulse 77 /min Comments: Pattern: Regular Respiration Rate 18 /min Comments: Pattern: Unlabored O2 SAT 95 % Comments: Room air BP Systolic 138 mm[Hg] Comments: Patient Position: Sitting; Cuff Location: Left Arm; Cuff Size: Standard BP Diastolic 84 mm[Hg] Comments: Patient Position: Sitting; Cuff Location: Left Arm; Cuff Size: Standard Weight 178.375 lb Height 61.5 in Body Mass Index Calculated 33.16 kg/m2 Body Surface Area Calculated 1.81 m2 :50 Temperature 97.5 f Comments: Method: Temporal Pulse [...] 1.75 m2 Results Date Description Value Details :42 Urinalysis, Office (03556) UA - LEUKOCYTE ESTERASE Small (Normal) UA - NITRITE Negative (Normal) URINE UROBILINGN DENISE TIMED Normal mg/dL (Normal) UA - PROTEIN Negative mg/dL (Normal) UA - PH 6 (Abnormal) UA - BLOOD Non Hemolyzed Trace (Normal) UA - SPECIFIC GRAVITY 1.030 (Abnormal) UA - KETONES Negative mg/dL (Normal) UA - BILIRUBIN Negative (Normal) UA - GLUCOSE Negative (Normal) [id number] URINE KEE CULTURE-IDENTIFICATN Comments: PATIENT NOT FASTINGPERFORMED BY: ZAINAB [facility] [id number] [id number] Information: SRC:UC (00060) Antimicrobial MIHEAD (Normal) Comments: S = Susceptible; I = Intermediate; R = Resistant P = Positive; N = Negative MICS are expressed in micrograms per mL Antibiotic RSLT#1 RSLT#2 RS Susceptibility LT#3 RSLT#4Amoxicillin/Clavulanic Acid SAmpicillin SCefepime SCeftriaxone SCefuroxime SCiprofloxacin SErtapenem SGentamicin SImipenem SLevofloxacin SMeropenem SNitrofurantoin SPipera cillin/Tazobactam STetracycline STobramycin STrimethoprim/Sulfa S Result 1 Escherichia coli Comments: 25,000-50,000 colony forming units per mLCefazolin <=4 ug/mLCefazolin with an JESSY <=16 predicts susceptibility to the oral agentscefaclor, cefdinir, cefpodoxime, cefprozil, cefuroxime, cephalexin, (Abnormal) and loracarbef when used for therapy of uncomplicated urinary tractinfections due to E. coli, Klebsiella pneumoniae, and Proteusmirabilis. Urine Final report Culture,Comprehensive (Abnormal) [id number] Basic Metabolic Profile (BMP) Comments: [facility] [id number] [place], [address] GAP 6 (Normal) Range: 5-15 CO2 27.0 [...] Comments: Please note revised GLUCOSE reference range kiwibojzn76/02/2018. 9-Lpb-505265:58 CBC W/Diff, Automated Comments: [facility] Tzcqriszdc[address] [place], [place], [address] Absolute Lymph 2.90 {X10_3/ul} (Normal) Range: 0.83-4.51 [...] 4.2-5.4 WBC 9.1 K/mm3 (Normal) Range: 4.4-11.0 8-Mcp-854304:58 Partial Thromboplast Time Comments: [address] [place], [place], [address] PTT 26.9 s (Normal) Range: 24.1-36.2 1-Uss-499277:58 Prothrombin Time w/INR Comments: [address] [place], [place], [address] INR 1.0 (Normal) PROTIME 12.8 s (Normal) Range: 11.7-14.9 0-Lae-927160:58 Thyroid Stim Hormone (TSH) Comments: [address] [place], [place], [address] TSH 0.02 {uIU/mL} (Abnormal) Range: 0.358-3.74 7-Lqo-220448:58 Troponin-I Comments: [address] [place], [place], [address] TROPONIN-I < 0.015 ng/mL (Normal) Comments: TROPONIN-I EXPECTED VALUES <0.045 Negative 0.045 - 0.590 Consistent with Cardiac Damage > OR = 0.600 Critical Value Not every elevated troponin is indicative of ND. T hesevalues should be used with clinical judgement in examiningthe patient's clinical picture for diagnosis. To establisha diagnosis of ND versus myocardial injury, there must be ademonstrated rise and/ or fall in the troponin values, inaddition to ischemic symptoms, EKG changes, new regionalwall motion abnormality, and/or angiographical evidence. PLEASE NOTE: REFERENCE RANGES EDITED 09/03/1701-Mar-20188-Ioc-140610:08 Urinalysis, Office (32623) UA - LEUKOCYTE ESTERASE Negative (Normal) UA - NITRITE Negative (Normal) URINE UROBILINGN DENISE TIMED Normal mg/dL (Normal) UA - PROTEIN Negative mg/dL (Normal) UA - PH 6 (Abnormal) UA - BLOOD Hemolyzed Trace (Normal) UA - SPECIFIC GRAVITY 1.030 (Abnormal) UA - KETONES Negative mg/dL (Normal) UA - BILIRUBIN Negative (Normal) UA - GLUCOSE Negative (Normal) 87-Syn-449412:30 T4, FREE (THYROXINE) (85936) Comments: PATIENT NOT FASTINGPERFORMED BY: ZAINAB LabComanohar MunozAloerp5344 [address] RoadDublin [place] [id number] T4,Free(Direct) 1.93 ng/dL (Abnormal) Range: 0.82-1.77 22-Mpn-049505:30 T3, FREE (TRIDOTHYRONINE) (04680) Comments: PATIENT NOT FASTINGPERFORMED BY: ZAINAB [facility] Rniull4482 [address] RoadDublin [place] [id number] Triiodothyronine (T3), Free 3.1 pg/mL (Normal) Range: 2.0-4.4 23-Jef-189200:30 TSH (THYROID STIMULATING Comments: PATIENT NOT FASTINGPERFORMED BY: ZAINAB [facility] Ahuusl7457 [address] RoadDublin [place] [id number] HORMONE) (28990) TSH 0.006 {uIU/mL} (Abnormal) Range: 0.450-4.500 21-Ttb-175268:30 CALCIFEDIOL (13214) Comments: PATIENT NOT FASTINGPERFORMED BY: ZAINAB [facility] Byrhkx[address] [facility] HospitalDublin [place] [id number] Vitamin D, 25-Hydroxy 33.6 ng/mL (Normal) Range: 30.0-100.0 Comments: Vitamin D deficiency has been defined by the [place] of[place]icine and an Endocrine Society practice guideline as alevel of serum 25-OH vitamin D less than 20 ng/mL (1,2).The Endocrine Society went on to further define vitamin Dinsufficiency as a level between 21 and 29 ng/mL (2).1. IOM ([place] of Medicine). 2010. Dietary reference intakes for calcium and D. [place]: The National Academies Press.2. Rodolfo MF, Dwight NC, Zeke OWUSU, et al. Evaluation, treatment, and prevention of vitamin D deficiency: an Endocrine Society clinical practice guideline. JCEM. 2010; 96(7):1911-30. 41-Wtu-628580:30 CBC, Platelets & Auto Diff Comments: PATIENT NOT FASTINGPERFORMED BY: CB [facility] Xtdcuh7085 [address] RoadDublin [place] [id number] (56531) Immature Grans (Abs) 0.0 {x10E3/uL} (Normal) Range: [...] 3.77-5.28 WBC 10.3 {x10E3/uL} (Normal) Range: 3.4-10.8 24-Pmm-517529:30 Metabolic Panel, Comprehensive Comments: PATIENT NOT FASTINGPERFORMED BY: [facility] Vehpea7191 [facility] [id number] (20546) ALT (SGPT) 18 [iU]/L (Normal) Range: 0-32 [...] 8-27 Glucose 70 mg/dL (Normal) Range: 65-99 48-Dif-946975:10 URINE KEE CULTURE-IDENTIFICATN Comments: PATIENT NOT FASTINGPERFORMED BY: [facility] Zhznum8873 [facility] [id number] Information: SRC:SHAZIA (12934) Result 2 MUG (Normal) Comments: Mixed urogenital [...] Comments: 3,000 Colonies/mLCefazolin <=4 ug/mLCefazolin with an JSESY <=16 predicts susceptibility to the oral agentscefaclor, cefdinir, cefpodoxime, cefprozil, cefuroxime, cephalexin,and loracarbef when used (Abnormal) for therapy of uncomplicated urinary tractinfections due to E. coli, Klebsiella pneumoniae, and Proteusmirabilis. Urine Final report (Abnormal) Safia Em 50-Vgq-691555:11 Urinalysis, Office (99878) UA - LEUKOCYTE ESTERASE Trace (Normal) UA - NITRITE Negative (Normal) URINE UROBILINGN DENISE TIMED Normal mg/dL (Normal) UA - PROTEIN Negative mg/dL (Normal) UA - PH 6.0 (Normal) UA - BLOOD Hemolyzed Trace (Normal) UA - SPECIFIC GRAVITY 1.030 (Abnormal) UA - KETONES Negative mg/dL (Normal) UA - BILIRUBIN Negative (Normal) UA - GLUCOSE Negative (Normal) 12-Rtx-044037:01 HgA1C , Office (43918) HgA1C , Office 5.3 % (Normal) Range: 4.6 - 7.1 44-Zem-690316:00 Blood Glucose , Office (42890) Blood Glucose , Office 127 (Normal) :54 Blood Glucose , Office (62369) Blood Glucose , Office 109 (Normal) 11-Ter-763033:54 HgA1C , Office (85180) HgA1C , Office 5.4 % (Normal) Range: 4.6 - 7.1 32-Bli-148871:10 Miscellaneous Lab Procedure Comments: Test(s) Ordered: 565962RyrfqdtSelect [facility] Jyulwbkgnt3198 Community Health SystemsjasperBemidji, [place], [address] [facility] Comments: 463241 6+OXYCODONE-BUND (ng/mL)DRUG RESULT SCREEN CUTOFF____ Amphetamines,Urine Negat [...] includes Oxydodone and Oxymorphone. TESTING PERFORMED AT [facility]. ORIGINAL REPORT ON FILE IN LAB CONTAINS AD DITIONAL TEST SITE INFORMATION. :10 Urine Drug Screen (VISTA) Comments: List of Drugs Taken or Suspected? .[facility] Ivzkiymtpa[address] [place], [place], [address] THC POSITIVE (Abnormal) PCP NEGATIVE (Normal) OPIATES [...] MUST BE ORDERED SEPARATELY. USE TESTMNEMONIC: [facility] 15-Dir-254484:33 HgA1C , Office (62716) HgA1C , Office 5.4 % (Normal) Range: 4.6 - 7.1 :45 CPK MB FRACTION (00141) Comments: PATIENT WAS FASTINGPERFORMED BY: [facility]6370 [facility] [id number] Creatine Kinase (CK), MB 2.0 ng/mL (Normal) Range: 0.0-5.3 31-Ijc-319584:45 ASSAY, TROPONIN, QUANTITATIVE Comments: PATIENT WAS FASTINGPERFORMED BY: [address] [id number] (aka Troponin I) (93530) Troponin I <0.01 ng/mL (Normal) Range: 0.00-0.04 53-Fqh-530271:45 LIPID PANEL (98319) Comments: PATIENT WAS FASTINGPERFORMED BY: [address] [id number] LDL/HDL Ratio 1.4 {ratio_units} (Normal) Range: 0.0-3.2 Comments: LDL/HDL Ratio Men Women 1/2 Avg.Risk 1.0 1.5 Av g.Risk 3.6 3.2 2X Avg.Risk 6.2 5.0 3X Avg.Risk 8.0 6.1 LDL Cholesterol Calc 94 mg/dL (Normal) Range: 0-99 VLDL Cholesterol Mike 21 mg/dL (Normal) Range: 5-40 HDL Cholesterol 66 mg/dL (Normal) Triglycerides 107 mg/dL (Normal) Range: 0-149 Cholesterol, Total 181 mg/dL (Normal) Range: 100-199 01-Pmk-952366:34 CBC, Platelets & Auto Diff Comments: PATIENT WAS FASTINGPERFORMED BY: [place] 0749870 [facility] [id number] (24625) Immature Grans (Abs) 0.0 {x10E3/uL} (Normal) Range: [...] 3.77-5.28 WBC 6.9 {x10E3/uL} (Normal) Range: 3.4-10.8 6-Eks-198990:33 HgA1C , Office (46388) HgA1C , Office 5.3 % (Normal) Range: 4.6 - 7.1 5-Ekh-372404:33 Blood Glucose , Office (96087) Blood Glucose , Office 96 (Normal) 3-Vvu-876956:24 CBC With Differential/Platelet Comments: PATIENT NOT FASTINGPERFORMED BY: [facility] Spcjac2647 [facility] [id number] Immature Grans (Abs) 0.0 {x10E3/uL} (Normal) Range: [...] 3.77-5.28 WBC 8.8 {x10E3/uL} (Normal) Range: 3.4-10.8 8-Rbm-810209:24 Comp. Metabolic Panel (14) Comments: PATIENT NOT FASTINGPERFORMED BY: LabCoSaint Clare's Hospital at DoverJxfrfy9793 [facility] [id number] ALT (SGPT) 18 [iU]/L (Normal) Range: 0-32 [...] Glucose, Serum 102 mg/dL (Abnormal) Range: 65-99 1-Epq-719792:24 Lipid Panel With LDL/HDL Comments: PATIENT NOT FASTINGPERFORMED BY: [employer] [facility] [id number] Ratio LDL/HDL Ratio 2.1 {ratio_units} Range: 0.0-3.2 [...] ng/mL (Abnormal) Comments: PATIENT NOT FASTINGPERFORMED BY: [employer]6370 [facility] [id number] 3:24 Range: 30.0-100.0 Comments: Vitamin D deficiency has been defined by the [place] of[place]icine and an Endocrine Society practice guideline as alevel of serum 25-OH vitamin D less than 20 ng/mL (1,2).The Endocrine Society went on to further define vitamin Dinsufficiency as a level between 21 and 29 ng/mL (2).1. IOM ([place] of Medicine). 2010. Dietary reference intakes for calcium and D. [place]: The National Academies Press.2. Rodolfo MARVIN, Dwight HELTON, Zeke OWUSU, et al. Evaluation, treatment, and prevention of vitamin D deficiency: an Endocrine Society clinical practice guideline. JCEM. 2010; 96(7):1911-30. 0-Rop-831144:58 MICROALBUMIN: CREATININE RATIO Comments: PATIENT NOT FASTINGPERFORMED BY: [facility] Fghmpw5819 [facility] [id number] (12525) AND (42594) Microalb/Creat Ratio 14.5 {mg/g_creat} (Normal) Range: 0.0-30.0 Microalbumin, Urine 4.1 ug/mL (Normal) Creatinine, Urine 28.2 mg/dL (Normal) 2-Cxw-290013:18 Miscellaneous Lab Procedure Comments: Comments: 720741 URINE DRUGTest(s) Ordered: 870099 [facility]UGW[facility] Jrnnoumjvr[address] [place], [address] [facility] Comments: 598032 6+OXYCODONE-BUND (ng/mL)DRUG RESULT SCREEN CUTOFF____ Amphetamines,Urine Negat [...] Oxydodone and Oxymorphone. ____ TESTING PERFORMED AT [facility]. ORIGINAL REPORT ON FILE IN LAB CONTAINS ADDITIONAL TEST SITE INFORMATION. 8-Aqn-058873:18 Urine Drug Screen (VISTA) Comments: Comments: 248860 URINE DRUGList of Drugs Taken or Suspected? [facility] W[address]ptmulgm[address] [place], [place], [address] THC NEGATIVE (Normal) PCP NEGATIVE (Normal) OPIATES [...] MUST BE ORDERED SEPARATELY. USE TESTMNEMONIC: [facility] 52-Wwv-333990:14 HGB A1C (64305) Comments: PATIENT NOT FASTINGPERFORMED BY: [facility] Zpaajw9821 [facility] [id number] Hemoglobin A1c 5.6 % (Normal) Range: 4.8-5.6 Comments: . Pre-diabetes: 5.7 - 6.4 Diabetes: >6.4 Glycemic control for adults with diabetes: <7.0 36-Jiz-716166:11 URINE KEE CULTURE-IDENTIFICATN Comments: PATIENT NOT FASTINGPERFORMED BY: [facility] Uafdmq3639 [facility] [id number] Information: SRC:SHAZIA (42606) Antimicrobial MIHEAD (Normal) Comments: S = Susceptible; [...] mL (Abnormal) Urine Final report Culture,Comprehensive (Abnormal) 81-Bpp-316686:42 Urinalysis, Office (63565) UA - LEUKOCYTE ESTERASE Moderate (Normal) UA - NITRITE Negative (Normal) URINE UROBILINGN DENISE TIMED Normal mg/dL (Normal) UA - PROTEIN Negative mg/dL (Normal) UA - PH 5 (Abnormal) UA - BLOOD Hemolyzed Small (Normal) UA - SPECIFIC GRAVITY 1.025 (Normal) UA - KETONES Negative mg/dL (Normal) UA - BILIRUBIN Negative (Normal) UA - GLUCOSE Negative (Normal) 36-Dkg-403473:58 URINE KEE CULTURE-IDENTIFICATN Comments: PATIENT NOT FASTINGPERFORMED BY: [employer] Vfhxul8696 [facility] [id number] Information: SRC: (82929) Antimicrobial MIHEAD (Normal) Comments: S = Susceptible; [...] mL (Abnormal) Urine Final report Culture,Comprehensive (Abnormal) 39-Nni-140574:45 Urinalysis, Office (01154) UA - LEUKOCYTE ESTERASE Small (Normal) UA - NITRITE Negative (Normal) URINE UROBILINGN DENISE TIMED Normal mg/dL (Normal) UA - PROTEIN Negative mg/dL (Normal) UA - PH 6 (Abnormal) UA - BLOOD Hemolyzed Small (Normal) UA - SPECIFIC GRAVITY 1.030 (Abnormal) UA - KETONES Moderate mg/dL (Normal) UA - BILIRUBIN Small (Normal) UA - GLUCOSE Negative (Normal) 22-Yld-275664:30 Miscellaneous Lab Procedure Comments: Test(s) Ordered: lc 778631, URINE TOXICOLOGYSelect [facility]ty [facility] Uosnofkzou[address] [place], [place], [address] [facility] Comments: 853843 6+OXYCODONE-BUND (ng/mL)DRUG RESULT SCREEN CUTOFF____ Amphetamines Negat [...] Oxydodone and Oxymorphone. TESTING PERFORM ED AT [facility]. ORIGINAL REPORT ON FILE IN LAB CONTAINS ADDITIONAL TEST SITE INFORMATION. 69-Lij-548886:30 Urine Drug Screen (VISTA) Comments: List of Drugs Taken or Suspected? [facility] Czottzhpnx[address] [place], [address] THC POSITIVE (Abnormal) PCP NEGATIVE (Normal) OPIATES [...] MUST BE ORDERED SEPARATELY. USE TESTMNEMONIC: [facility] 7-Ici-865715:48 TSH (THYROID STIMULATING Comments: PATIENT NOT FASTINGPERFORMED BY: [employer]6370 [facility] [id number] HORMONE) (78634) TSH 13.590 {uIU/mL} (Abnormal) Range: 0.450-4.500 :35 TSH (THYROID STIMULATING Comments: PATIENT NOT FASTINGPERFORMED BY: [employer]app Oyvxrl8720 [facility] [id number] HORMONE) (87117) TSH 0.080 {uIU/mL} (Abnormal) Range: 0.450-4.500 :35 OEECQ-TQGOOWWDFUI-PKBKH (30017) Comments: PATIENT NOT FASTINGPERFORMED BY: Appy PieSaint Clare's Hospital at DoverGjnemw6763 [facility] [id number] AFP, Serum, Tumor Marker 2.7 ng/mL (Normal) Range: 0.0-8.3 Comments: Katerin ECLIA methodology :35 SPEP (12925) Comments: PATIENT NOT FASTINGPERFORMED BY: [facility]6370 [facility] [id number] Information: [id number] Please note: SPRCS (Normal) Comments: Protein electrophoresis scan will follow via computer, mail, orcourier delivery. A/G Ratio 1.1 (Normal) Range: 0.7-1.7 Globulin, Total 3.0 g/dL (Normal) Range: 2.2-3.9 M-Ramana Not Observed g/dL (Normal) Gamma Globulin 1.1 g/dL (Normal) Range: 0.4-1.8 Beta Globulin 1.0 g/dL (Normal) Range: 0.7-1.3 Uujoo-6-Gdlgmukc 0.6 g/dL (Normal) Range: 0.4-1.0 Qbhgw-3-Fdmkaijd 0.3 g/dL (Normal) Range: 0.0-0.4 Albumin 3.3 g/dL (Normal) Range: 2.9-4.4 Protein, Total, Serum 6.3 g/dL (Normal) Range: 6.0-8.5 :10 UPEP (64179) Comments: PATIENT NOT FASTINGPERFORMED BY: [place] 0749870 [facility] [id number] Information: [id number] Please note: SPRCS (Normal) Comments: Protein electrophoresis scan will follow via computer, mail, orcourier delivery. M-Ramana, % Not Observed % (Normal) Gamma Globulin, U 17.4 % (Normal) Beta Globulin, U 30.8 % (Normal) Qqpoo-5-Wgbnrqqx, U 20.9 % (Normal) Xhjdv-9-Ifxxisbh, U 7.5 % (Normal) Albumin, U 23.4 % (Normal) Protein,Total,Urine 4.9 mg/dL (Normal) :08 urine immunofixation (09814) Comments: PATIENT NOT FASTINGPERFORMED BY: [facility]6370 [facility] [id number] Information: SRC:UR [id number] MIGDALIA Interpretation:U UPEIP (Normal) Comments: No monoclonality detected. 0-Bxt-945448:50 Urinalysis, Office (72855) UA - LEUKOCYTE ESTERASE Negative (Normal) UA - NITRITE Negative (Normal) URINE UROBILINGN DENISE TIMED Normal mg/dL (Normal) UA - PROTEIN Negative mg/dL (Normal) UA - PH 6.0 (Normal) Comments: 5.5 UA - BLOOD Negative (Normal) UA - SPECIFIC GRAVITY 1.030 (Abnormal) UA - KETONES Small mg/dL (Normal) UA - BILIRUBIN Negative (Normal) UA - GLUCOSE Negative (Normal) 93-Wcb-545041:30 ANTINUCLEAR ANTIBODIES DIRECT Comments: [facility] (refer to report for specific site)refer to report for address and phone number ELIJAH-DIRECT Negative (Normal) Comments: Performed at: [facility] LabCo[address] [id number] Director: Ren Mcgovern PhD, Phone: [phone] 91-Wzj-741545:30 CBC W/Diff, Automated Comments: [facility] Szideuxyrx1474 [address] [facility]. [place], [place], [address] Absolute Lymph 2.05 {X10_3/ul} (Normal) Range: 0.83-4.51 [...] 4.2-5.4 WBC 7.9 K/mm3 (Normal) Range: 4.4-11.0 11-Twz-153863:30 Comprehensive Metabolic Profil Comments: Serial Specimen #1, #2 or #3? 1[facility] Copxtdjmzm3090 [place], [address] GAP 6 (Normal) Range: 5-15 CO2 27.0 [...] 7-18 GLU 101 mg/dL (Normal) Range: 70-110 86-Uiu-726034:30 CRP Comments: Serial Specimen #1, #2 or #3? [address] [place] [address] [place], [place], [address] C-REACTIVE PROT < 2.90 mg/L (Normal) Range: 0.0-3.0 Comments: C-Reactive Protein (CRP) provides useful information for thediagnosis, therapy and monitoring of inflammatory processesand associated diseases. For the evaluation of Relative Riskfor Cardiovascular Dise ase, a High Sensitivity CRP (HSCRP)should be ordered. 60-Kec-599705:30 Erythrocyte Sed Rate Comments: [facility] [address] [place], [place], [address] SED RATE 20 mm/h (Normal) Range: 0-30 19-Viv-847344:30 Immunofixation Urine Comments: [facility] (refer to report for specific site)refer to report for address and phone number MIGDALIA Urine Test not performed (Normal) Comments: Quantity was not sufficient for analysis.CONTACTED MAHAD AT YOUR FACILITY 11-15-1513-Nov-201538-Gqg-298367:30 Immunofixation, Serum Comments: [facility] (refer to report for specific site)refer to report for address and phone number MIGDALIA RESULT,S Comment (Normal) Comments: No monoclonality detected. IMMUNOGL M 137 mg/dL (Normal) Range: 26-217 IMMUNO A 225 mg/dL (Normal) Range: 87-352 IMMUNO G 1077 mg/dL (Normal) Range: 700-1600 76-Vxz-892794:30 Frannie Lambda Light Chains Comments: [facility] (refer to report for specific site)refer to report for address and phone number KAPPA/LAMBDA % 1.03 (Normal) Range: 0.26-1.65 FR LAMBDA LT CH 17.65 mg/L (Normal) Range: 5.71-26.30 FR KAPPA LT CHN 18.21 mg/L (Normal) Range: 3.30-19.40 72-Xmp-372173:30 LDH 201 U/L (Normal) Comments: Serial Specimen #1, #2 or #3? 1[facility] [address] [place], [place], [address] Range: 84-246 55-Ivb-730166:30 Microalb:Creat Ratio,Random UR Comments: [facility] Jamdrchkqn13[address] [place], [address] MALB:CREAT 7.0 {mg/g_CRE} (Normal) MICROALBUMIN,UR 10.3 mg/L (Normal) UR CREAT 148.00 mg/dL (Normal) 51-Ugv-402720:30 Protein Electro.Ur-Random Comments: [facility] (refer to report for specific site)refer to report for address and phone number NOTE Comment (Normal) Comments: Protein electrophoresis scan will follow via computer,mail, or clinical transformation specialist delivery. M-SPIKE,U Test not performed (Normal) GAMMA GLOB,U Test not performed (Normal) Comments: Test not performed BETA GLOB,U Test not performed (Normal) Comments: Test not performed HZNZN-8-EOEI,U Test not performed (Normal) Comments: Test not performed TEYFE-3-HUKC,U Test not performed (Normal) Comments: Test not performed ALBUMIN,UR Test not performed (Normal) Comments: Test not performed PROTEIN,UR Test not performed mg/dL Comments: Quantity was not sufficient for analysis.CONTACTED MAHAD AT YOUR FACILITY 11-15-15 (Normal) 47-Ftm-104449:30 Urinalysis, Routine (Dipstick) Comments: How was Urine Obtained? CLEAN [facility] Jurojabjgk6[address] [place], [address] LEUK ESTERASE 25 /ul (Abnormal) OCCULT BLOOD-UR 25 /ul (Abnormal) NITRITE UR Negative (Normal) UROBILI Normal mg/dL (Normal) PROT DIPSTX Negative mg/dL (Normal) pH UR 5.0 (Normal) Range: 5.0 - 8.0 SP.GR. DIPSTX 1.025 (Normal) Range: 1.002-1.030 KETONE UR Negative mg/dL (Normal) BILIRUBIN URINE Negative mg/dL (Normal) GLUCOSE, UR Normal mg/dL (Normal) CLARITY Clear (Normal) COLOR Yellow (Normal) 83-Kwz-156752:00 Cytology, Body Fluid / CSF Comments: Specimen Source: [facility] Xbkjjwtqac9179 [place], [address] CYTOLOGY,BF/CSF SEE PATHOLOGY REPORT Comments: Specimen submitted to Anatomical Pathology Department fortesting. (Normal) 88-Dre-948340:00 CYTOSPIN ON FLUID See Note (Normal) Comments: [facility] Cqyvbzaoux[address] [place], [place], [address] Comments: Patient: SADIA LONGO : 1950 (64/F) Acct Num: [id number] Phys: Veronica GARZA,Cosmo Mishra Unit Num: [id number] Loc: [facility] Specimen: [id number] Received: 08/31/15 - 1314 Spec Type: CYSPIN FL TISSUES TISSUES: CULTURE RESULTS No results available. CYTOLOGY GROSS Received is 10 ml of clear gold fluid labeled with the patient's name and and designat ed per the requisition as urine. Submitted for cytology preparation. / 08/31/15 TC:5 CPT:08700 CYTOLOGY STUDY Slides are reviewed. The specimen consists of benign squamous cells, benign urothelial cells and neutrophils. DIAGNOSIS CYTOLOGY Urine for cytology (cytospin): Negative for malignant cells. SJ:meliza 09/01/15 HEADER OPERATION: Not noted PRE-OP DIAGNOSIS: Hematu johnnie TISSUE SUBMITTED: Urine cytology Signed Samy Zayas 09/01/15 <signature on file> 52-Cii-291948:04 Urinalysis, Office (56405) UA - LEUKOCYTE ESTERASE Negative (Normal) UA - NITRITE Negative (Normal) URINE UROBILINGN DENISE TIMED Normal mg/dL (Normal) UA - PROTEIN Negative mg/dL (Normal) UA - PH 5 (Abnormal) UA - BLOOD Hemolyzed Trace (Normal) UA - SPECIFIC GRAVITY 1.030 (Abnormal) UA - KETONES Negative mg/dL (Normal) UA - BILIRUBIN Negative (Normal) UA - GLUCOSE Negative (Normal) 49-Wpd-185174:52 URINE KEE CULTURE-IDENTIFICATN Comments: PATIENT NOT FASTINGPERFORMED BY: [facility] Hootfr9111 [facility] [id number] Information: [id number] (93423) Antimicrobial MIHEAD (Normal) Comments: S = Susceptible; [...] Plan of Care Name Dates Details Instructions Cystitis : Follow up after labs Indication: Cystitis Nonsmoker : Eprescribed prescriptions (G8553) Indication: Nonsmoker Nonsmoker : Follow up - Make appt [...] pain syndrome) Planned Observations T4, FREE (THYROXINE) (19812)Indication: Abnormal thyroid function test On: :10 Request Comments: Apr 15 T3, FREE (TRIDOTHYRONINE) (54257)Indication: Abnormal thyroid function test On: :10 Request Comments: Apr 15 TSH (THYROID STIMULATING HORMONE) (34940)Indication: Abnormal thyroid function test On: :10 Request Comments: Apr 15 URINE KEE CULTURE-IDENTIFICATN (57839)Indication: Urinary frequency On: 20-Mwt-745956:43 Request HGB A1C (22973)Indication: Paresthesia of arm On: 1-Hfh-639037:04 Request HEPATITIS C ANTIBODY (18096)Indication: Paresthesia of arm On: 7-Ggx-367083:04 Request ELIJAH (ANTINUCLEAR ANTIBODY) (37899)Indication: Paresthesia of arm On: 4-Nue-640563:04 Request Serum Protein Electrophoresis (SPEP) (71437)Indication: Paresthesia of arm On: :04 Request VITAMIN B-12 (CYANOCOBALAMIN) (59222)Indication: Paresthesia of arm On: :04 Request METABOLIC PANEL, COMPREHENSIVE (79733)Indication: Paresthesia of arm On: :04 Request CBC & PLATELETS (AUTO) (54781)Indication: Paresthesia of arm On: : Request T4, FREE (THYROXINE) (90504)Indication: Acquired hypothyroidism On: :21 Request TSH (THYROID STIMULATING HORMONE) (90833)Indication: Acquired hypothyroidism On: : Request T3, FREE (TRIDOTHYRONINE) (12074)Indication: Acquired hypothyroidism On: :21 Request Blood Glucose , Office (13637)Indication: Diabetes mellitus type II, controlled On: 63-Zoi-297339:33 Request Lipid Panel (05954)Indication: High triglycerides On: 4-Kdk-499749:10 Request CALCIFEDIOL (23679)Indication: Osteopenia On: 5-Jtv-990179:51 Request CBC, Platelets & Auto Diff (03293)Indication: Hypertension On: :49 Request Lipid Panel (34182)Indication: Hypertension On: :49 Request Metabolic Panel, Comprehensive (69706)Indication: Hypertension On: :49 Request Urinalysis, Office (69522)Indication: Hypertension On: :49 Request CALCIFEDIOL (64533)Indication: Vitamin D deficiency On: 2-Tsu-791599:55 Request TSH (THYROID STIMULATING HORMONE) (63009)Indication: Acquired hypothyroidism On: 1-Odu-114897:51 Request CBC, Platelets & Auto Diff (81162)Indication: Diabetes mellitus type II, controlled On: :51 Request Metabolic Panel, Comprehensive (39486)Indication: Diabetes mellitus type II, controlled On: 8-Wwa-230489:51 Request Metabolic Panel, Comprehensive ([id number])Indication: Fatty liver On: :24 Request MSWCU-RPCOVJTBKHU-KIURN ([id number])Indication: Fatty liver On: :23 Request serum free light chains (69157)Indication: Swelling of both lower extremities On: Request UPEP ([id number])Indication: Swelling of both lower extremities On: Request urine immunofixation (08877)Indication: Swelling of both lower extremities On: Request serum immunofixation ([id number])Indication: Swelling of both lower extremities On: Request URINALYSIS ([id number])Indication: Swelling of both lower extremities On: Request MICROALBUMIN: CREATININE RATIO ([id number]) AND ([id number])Indication: Swelling of both lower extremities On: Request BLOOD SMEAR, W/O MANUAL DIFF WBC ([id number])Indication: Lymphadenopathy On: Request LDH (LD) (LACTATE DEHYDROGENASE) ([id number])Indication: Lymphadenopathy On: Request ELIJAH (ANTINUCLEAR ANTIBODY) ([id number])Indication: Lymphadenopathy On: Request C-REACTIVE PROTEIN ([id number])Indication: Lymphadenopathy On: Request SED RATE ERYTHROCYTE ([id number])Indication: Lymphadenopathy On: Request METABOLIC PANEL, COMPREHENSIVE ([id number])Indication: Lymphadenopathy On: Request CBC, Platelets & Auto Diff ([id number])Indication: Gingivitis On: : Request METABOLIC PANEL, COMPREHENSIVE (77818)Indication: High triglycerides On: 84-Zbu-215972:55 Request LIPID PANEL ([id number])Indication: High triglycerides On: 68-Qag-722567:55 Request TSH ([id number])Indication: Acquired hypothyroidism On: 75-Ivw-433504:54 Request VITAMIN B-12 (CYANOCOBALAMIN) ([id number])Indication: Memory change On: :54 Request TSH ([id number])Indication: Acquired hypothyroidism On: 6-Hpj-699480:54 Request METABOLIC PANEL, COMPREHENSIVE (80570)Indication: Diabetes mellitus type II, controlled On: :53 Request CBC with auto diff ([id number])Indication: Diabetes mellitus type II, controlled On: :53 Request LIPID PANEL ([id number])Indication: Diabetes mellitus type II, controlled On: :53 Request MICROALBUMIN: CREATININE RATIO ([id number]) AND ([id number])Indication: Diabetes mellitus type II, controlled On: :53 Request SED RATE ERYTHROCYTE ([id number])Indication: Fatigue On: :51 Request C-REACTIVE PROTEIN ([id number])Indication: Fatigue On: :51 Request FERRITIN ([id number])Indication: Fatigue On: :51 Request IRON ([id number])Indication: Fatigue On: :51 Request ALDOLASE ([id number])Indication: Fibromyalgia (Renamed from Diffuse myofascial pain syndrome) On: :51 Request Creatine Kinase Total ([id number])Indication: Fibromyalgia (Renamed from Diffuse myofascial pain syndrome) On: :51 Request SPEP ([id number])Indication: Fatigue On: :51 Request UPEP ([id number])Indication: Fatigue On: :51 Request FOLIC ACID SERUM ([id number])Indication: Fatigue On: :51 Request VITAMIN B-12 (CYANOCOBALAMIN) ([id number])Indication: Fatigue On: :51 Request URINALYSIS, W/ MICRO ([id number])Indication: Fatigue On: :50 Request METABOLIC PANEL, COMPREHENSIVE ([id number])Indication: Fatigue On: :50 Request Planned Procedures Ultrasound - RenalBy: Oscar ANGELES, On: 01-Mar-2018 Intent Anjelica Hernandez CNP SCREENING DIGITAL TOMOSYNTHESIS OF On: 31-Jul-2017 Intent BREAST ([id number])By: Anjelica Salguero CNP, CNP, Mary E ELECTROCARDIOGRAM, COMPLETE (ECG) On: 02-May-2017 Intent ([id number])By: Anjelica Salguero CNP, CNP, Mary E ELECTROCARDIOGRAM, COMPLETE (ECG) On: 23-Mar-2017 Intent ([id number])By: Anjelica Salguero CNP, CNP, Mary E DEXA SCAN AXIAL SKELETON ([id number])By: On: 23-Jan-2017 Intent Oscar ANGELES, Paloma Oscar ANGELES, Paloma Ear Irrigation ([id number])By: Oscar On: 17-Oct-2016 Intent Anjelica ANGELES E Anjelica Salguero CNP E Wax CurettesBy: Anjelica Salguero CNP On: 17-Oct-2016 Intent Anjelica Salguero CNP MAMMOGRAM BREAST BILATERAL SCREENING On: 14-Jul-2016 Intent DIGITAL ([id number])By: Oscar ANGELES, Paloma Oscar ANGELES, Anjelica Hutchinson Ultrasound - LiverBy: Oscar ANGELES, On: 12-Nov-2015 Intent Paloma Oscar ANGELES, Anjelica Hutchinson CT - Chest (Without Contrast)By: On: 08-Sep-2015 Intent Arabella Parish DO INJECTION, PROLIA ([id number])By: Jem On: 24-Aug-2015 Intent Arabella WONG Comments: Lot:[id number]:12/08Dose:60mlRoute:sub qSite:l armGiven By:SARIKA signed CHEST CT WITHOUT CONTRAST ([id number])By: On: 06-Jul-2015 Intent Arabella Parish DO Comments: HIGH RESOLUTION CT - Chest (Without Contrast)By: On: 29-Jun-2015 Intent Arabella Parish DO Comments: HIGH RESOLUTION Radiology - ChestBy: Arabella Parish DO On: 07-Jun-2015 Intent A Comments: PA&L CT - Abdomen & Pelvis (Without On: 04-Jun-2015 Intent Contrast)By: Arabella Parish DO Comments: stat call wet read MAMMOGRAM, SCREENING, BOTH BREAST On: 04-Jun-2015 Intent ([id number])By: Arabella Parish DO MAMMOGRAM, SCREENING, BOTH BREAST On: 26-Feb-2015 Intent ([id number])By: Arabella Parish DO Flu Vaccine (Quadrivalent) [id number]: On: 26-Feb-2015 Intent Arabella Parish DO ADMINISTRATION OF INFLUENZA VIRUS On: 26-Feb-2015 Intent VACCINE ([id number])By: Arabella Parish DO Comments: Lot #[id number]-[id number] dltd, IMDose prefilled syringegiven by:CODY Summers and ABN signed Doppler Ultrasound OtherBy: Jem WONG, On: 07-Jul-2014 Intent Arabella Covarrubias Comments: legs Planned Medications INJECTION, JEWELL Ordered: 24-Aug-2015 Pending Arabella Parish DO Instructions Name Dates Details Abnormal thyroid function test : Patient Instructions Indication: Abnormal thyroid function test Nonsmoker : How to access health information online Indication: Nonsmoker Nonsmoker : How to access health information online - Detail Indication: Nonsmoker Nonsmoker : How to access [...] 31.0-31.9,adult Fatigue : DISCONTINUED - LIPID PANEL ([id number]) Indication: Fatigue Nonsmoker : How to access [...] liver : DISCONTINUED - METABOLIC PANEL, COMPREHENSIVE ([id number]) Indication: Fatty liver Fatty liver : DISCONTINUED - [id number]-RKOGM ([id number]) Indication: Fatty liver Depression : DISCONTINUED - CALCIFEDIOL (75031) Indication: Depression Nonsmoker : How to access [...] (Renamed from Diffuse myofascial pain syndrome) Encounters Office Visit On: 12-Mar-2018 11:29 Encounter Reason: Follow up hospital - Reason for ER visit: note: (migraine). The patient feels well with minor complaints, has good energy level and is sleeping well. Patient has been compliant with instructions. [facility] End: 12-Mar-2018 12:36 t medication use: no side effects, compliant with dosing regimen and considered effective by patient. Patient sleeps 6 (broken) hours per night. Nutrition: balanced diet. 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 Earl. Had cerivicpin eMRI ??has advaced spond ylosis and spinal stensosi, NeckMRA showing normal carotids. MRa of head normal. Neurology thinking needs psych referral by primary care. But pt has psych Dr. Brown in [place]., [ADDITIONAL REASON] UTI - The urinary symptoms are described as painful urination, frequency, burning and incontinence. The symptoms have been occurring for 1 day. Encounter Diagnosis: Nonsmoker, BMI 33.0-33.9,adult, Urinary frequency, Hemiplegic migraine, Abnormal thyroid function test, Cystitis [facility] Annotation/Addendum On: 01-Mar-2018 14:29 Encounter Diagnosis: Urinary [...] (). 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 Skyler Odonnell at [facility] now needs institution librarian, End: 01-May-2017 15:42 [ADDITIONAL REASON] Follow up [...] complaints (pre-cancerous areas on face,. IPL tr[place]ium [place]), has decreased energy level and is sleeping [...] weight stable- went to sisters wedding in [place] with help of daughter and felt singificiantly [...] thinks maybe with bm- happened when in [place]- drinking more water- not much fiber - [...] peanut butter - no meat some cheese trinidadian yogurt- saw Mariola and ordered sleep study at home- they [...] meds for years had emg/ncs - Dr Price malott pain sp ecilaist-- - had mri spine- [...]
--- OUTSIDE RECORDS SUMMARY | 2018-05-15 06:21 | XMS RPT_ITS | Continuity of Care Document ---
:1950 Author Organization [facility] Address [address] [facility] [address] [place] [address] Phone Care Team Providers Name Role Phone Sydneefer KARTHIK, Paloma Unavailable Mason Garnett Unavailable Milton GARZA, Neftaly Hutchinson Unavailable Garth GARZA, Yaniv King Unavailable Khushbu Cevallos Unavailable Unavailable Slarb TRANSPORTATION ASSISTANT, Dora Unavailable Unavailable Long TRANSPORTATION ASSISTANT, Bina Hernandez Unavailable Unavailable Tiesha Avina Unavailable Unavailable Unavailable Unavailable Problems Name Dates Details Abdominal pain, acute, left lower quadrant (Renamed from Acute abdominal pain in left lower quadrant) (R10.32, 789.04) Status: Active Abnormal CXR (R93.89, 793.2) Status: Active Abnormal TSH (R79.89, 790.6) Comments: was 0.08 in Nov now 18.99 labs done at [facility] will repeat with our lab today andnow seeing Radhagudelia most recent tsh undectable per pt.she is asking for another specialist or myself to follow Status: Active Acquired hypothyroidism (E03.9, 244.9) Comments: Seeing Dr. Lobato in [place] on tircent they monitor Status: Active Allergic [...] stopped seeing Barrington Wayne seeing Dany in [place] Status: Active Encounter for gynecological examination without [...] treated [facility], ekg [...] Active Urinary frequency (R35.0, 788.41) Status: Active UTI symptoms (R39.9, 788.99) Comments: [...] Mary E Start : 14-Jul-2016 Active Comments:Dr Alvarez EpiPrem 2-Alfredo 0.3 MG/0.3ML Injection Solution Auto-injector 1 (one) Soln Auto-inj Soln Auto-inj as needed for 0 days Quantity: 1 {Dose_Pack} Refills: 1 Ordered:14-Jul-2016 Anjelica Salguero CNP, CNP, Mary E Start : 14-Jul-2016 Active Comments:Medication taken as needed. Generic Please Flonase Allergy Relief 50 MCG/ACT Nasal Suspension 2 (two) Lincoln Lincoln daily for 0 days Quantity: 1 {Lincoln} Refills: 0 Ordered:05-Feb-2018 Khushbu Cevallos Start : 02-Nov-2017 Active Metoprolol Succinate ER 50 MG Oral Tablet Extended Release 24 Hour 1 (one) Tablet daily for 0 days Quantity: 30 {Tablet} Refills: 0 Ordered:02-Nov-2017 Oscar KARTHIK, Anjelica Aguayosatish ANGELES Anjelica Hutchinson Start : 02-Nov-2017 Active Comments:Endo Morphine Sulfate 15 MG Oral Tablet 1 qd (15 MG) Active Nitrofurantoin Macrocrystal 100 MG Oral Capsule 1 (one) Capsule q12 hrs x 5 days for 5 days Quantity: 10 {Capsule} Refills: 0 Ordered:11-Feb-2018 Oscar KARTHIK, Anjelica Aguayosatish ANGELES Anjelica Hutchinson Start : 11-Feb-2018 Active Comments:with food Tirosint 100 MCG Oral Capsule 1 one [...] Quantity: 30 {Capsule} Refills: 0 Ordered:17-Oct-2016 Oscar KARTHIK Anjelica Aguayosatish ANGELES Anjelica Hutchinson Start : 17-Oct-2016 Active Cheratussin AC 100-10 MG/5ML Oral Syrup 4 Milliliter qhs prn cough for 0 days Quantity: 120 {Milliliter} Refills: 0 Ordered:31-Jul-2017 Long TRANSPORTATION ASSISTANT, Bina L Start : 01-May-2017 End : 31-Jul-2017 Inactive Doxycycline Hyclate 100 MG Oral Tablet Delayed Release 1 (one) Tablet DR bid for 10 days Quantity: 20 {Tablet} Refills: 0 Ordered:23-Nov-2015 Oscar KARTHIK, Anjelica Aguayosatish ANGELES Anjelica Hutchinson Start : 23-Nov-2015 End : 03-Dec-2015 Inactive Embeda 20-0.8 MG Oral Capsule Extended Release 1 (one) Capsule daily per Dr Basali for 30 days Quantity: 30 {Capsule} Refills: 0 Ordered:31-Jul-2017 Bina Liriano LPN Start : 01-May-2017 End : 31-Jul-2017 Inactive Fenofibrate Micronized 67 MG Oral Capsule 1 (one) Capsule once daily with a meal for 0 days Quantity: 90 {Capsule} Refills: 0 Ordered:31-Jul-2017 Bina Liriano LPN L Start : 01-May-2017 End : 31-Jul-2017 Inactive Macrobid 100 MG Oral Capsule 1 (one) Capsule bid for 7 days Quantity: 14 {Capsule} Refills: 0 Ordered:17-Oct-2016 Sydneelisasatish ANGELES, Anjelica Aguayosatish ANGELES, Paloma Start : 17-Oct-2016 End : 24-Oct-2016 Inactive MetroNIDAZOLE 250 MG Oral Tablet 1 (one) Tablet tid for 7 days Quantity: 21 {Tablet} Refills: 0 Ordered:12-Nov-2015 Sydneelisasatish ANGELES, Anjelica Aguayosatish ANGELES, Paloma Start : 12-Nov-2015 End : 19-Nov-2015 Inactive [...] Quantity: 15 {Capsule} Refills: 0 Ordered:14-Jul-2016 Oscar KARTHIK, Anjelica Aguayosatish ANGELES, Paloma Start : 14-Jul-2016 End : 13-Aug-2016 Inactive SAVELLA, 50MG (Oral Tablet) 1 (one) Tablet Tablet bid for 90 days Quantity: 180 {Tablet} Refills: 3 Ordered:08-Sep-2015 Nemo Johnson Start : 26-Feb-2015 End : 08-Sep-2015 Inactive Tetracycline HCl 500 MG Oral Capsule 1 (one) Capsule daily for 0 days Quantity: 30 {Capsule} Refills: 0 Ordered:05-Feb-2018 Gagandeepa PACKAGE WINDER, Anjelica Aguayosatish ANGELES, Paloma Start : 02-Nov-2017 End : 05-Feb-2018 Inactive VESICARE, 10MG (Oral Tablet) 1 (one) Tablet qd for 30 days Quantity: 30 {Tablet} Refills: 0 Ordered:12-Nov-2015 Arabella Parish DO Start : 08-Sep-2015 End : 08-Oct-2015 Inactive Zofran ODT 4 MG Oral Tablet Disintegrating 1 (one) Tablet Tablet bid with antibiotic prn nausea for 0 days Quantity: 20 {Tablet} Refills: 0 Ordered:31-Jul-2017 Long TRANSPORTATION ASSISTANTJoeyrosie Hernandez Start : 17-Oct-2016 End : 31-Jul-2017 Inactive HUMIRA, 40MG/0.8ML (Subcutaneous Kit) 1 (one) Kit once monthly for 30 days Quantity: 30 Kit Refills: 0 Ordered:11-Aug-2014 Estrella Snell Start : 07-Jul-2014 End : 11-Aug-2014 Discontinued HYDROmorphone HCl 2 MG Oral Tablet 1 (one) Tablet Tablet tid for 30 days Quantity: 90 {Tablet} Refills: 0 Ordered:14-Jul-2016 Slarb Dora GREEN Start : 25-Sep-2014 End : 14-Jul-2016 Discontinued [...] (CAD), BILAT Result: Comments: See Note; NOTES: [facility] Imaging Services [address] [place] [address] SCREENING MAMM (CAD), BILAT MR#: [id number] Acct: [id number] Name: DONTASADIA C Rep #: [id number] : 1950 F 66 From: Xu Davila MD PCP: Anjelica Salguero NP Status: REG CLI Study: SCREENING MAMM (CAD), BILAT Date of Exam: 08/22/17 Exam# [id number] Ordering Dr: Anjelica Salguero MAMMO GRAPHY - [...] biopsy of a clinically suspicious abnorm ality. [id number] Electronically Signed: Xu Davila MD at 9:48 EDT Tel [phone], Service support , CC: Anjelica Salguero NP Clinical Resource Nurse: Signed 15-Jun-2017 Echocardiogram Complete Result: Comments: See Note; NOTES: [facility] Cardiovascular Services [address] [place] [address] Echo Complete 06/15/17 0933 MR#: [id number] Acct: [id number] Name: SADIA LONGO Rep #: [id number] : 1950 66 From: Yaniv Liang MD [...] Physician: ANJELICA SALGUERO Performed By: Bryn Sky 06/15/17 1643 Date Yaniv Liang MD CC: Anjelica Salguero NP; Yaniv mera MD Date Dictated: 06/15/1733 Date Transcribed: 06/15/171642 Clinical Resource Nurse: Signed 15-Jun-2017 Stress Report Result: Comments: See Note; NOTES: [facility] Cardiovascular Services [address] [place] [address] MR#: [id number] Acct: [id number] Name: SADIA LONGO Rep #: [id number] : [birth year] 66 From: Yaniv Liang MD [...] of 92%. This note was generated with Summit [employer] software. It may contain incorrect words, spelling, and punctuation that were not noted in checking the note before signing. 8 1019 <Electronically signed by Yaniv Liang MD> Date Yaniv Liang MD CC: Anjelica Salguero PRINCIPAL ELECTRICAL ENGINEER; Yaniv Liang MD Date Dictated: 06/15/17 1014 Date Transcribed: 06/15/17 1014 Clinical Resource Nurse: PM Signed 13-Jun-2017 Lumbar Spine 2 or 3 Views Result: Comments: See Note; NOTES: [facility] Imaging Services [address] [place] [address] Lumbar Spine 2 or 3 Views MR#: [id number] Acct: [id number] Name: SADIA LONGO Rep #: [id number] : 1950 F 66 From: Robert Saba DO PCP: Anjelica Salguero NP Status: REG CLI Study: Lumbar Spine 2 or 3 Views Date of Exam: 06/13/17 Exam# [id number] Ordering Dr: Yung Alvarez MD STUDY: X-RAY [...] CC: Anjelica Salguero NP; Yung Alvarez MD Clinical Resource Nurse: Signed 31-May-2017 Cardiology Visit Report Result: Comments: See Note; NOTES: [facility] [address] [place] [address] OFFICE VISIT Date of Service: 05/31/17 MR#: [id number] Acct: [id number] Name: SADIA LONGO Rep #: [id number] : 1950 Provider: Yaniv Liang MD Age/Sex: 66/F Location: [facility] Status: Signed HPI HPI Details: SADIA LONGO, is a 66 F who presents to the office today for for outpatien t cardiovascular consultation based on concerns of shortness of breath/dyspnea, chest discomfort, and fatigue superimposed upon a reported history of underlying CAD. She states she has previously been e valuated by Dr. Murray Patterson of cardiology in the [place], [place] area. She notes in the past [...] of non-cardiovascular issues. Based upon notes from [facility] from 06/16/2012 it appears at [...] 60 mg/mL subcutaneous syringe 60 mg SC [id number] 05/30/17 [Hi story Confirmed 05/31/17] epinephrine 0.3 [...] mg PO QDAY 05/31/17 [History Confirmed ] [facility] Medical History Palpitations (Acute) SOB (shortness [...] to this approach. Follow Up 6 Weeks (PA/PRINCIPAL ELECTRICAL ENGINEER) Coding Level of Care Code Off vis,new,level [...] NP 31-May-2017 12 Lead EKG performed by [facility] Result: Comments: See Note; NOTES: [facility] [address] [place], [place] [address] [address] 12 Lead EKG performed by [facility] 05/31/17 141 MR#: [id number] Acct: [id number] Name: SADIA LONGO Rep #: [id number] : 1950 66 From: Yaniv Liang MD Attending Dr: Yaniv Liang MD Status: DEP AMB Ordering Dr: Yaniv Liang MD Date: 05/31/17 Location: [facility] Sex: F C Admitted: [facility]/12 Lead EKG performed by [facility] ECG Report Interpretation Sinus Rhythm Poor R wave progressionElectronically signed on 05/31/2017 at 16:10 by Esvin Liang 05/31/17 1612 Date Yaniv Liang MD CC: Anjelica Salguero NP Date Dictated: 05/31/171412 Date Transcribed: 05/31/171412 Clinical Resource Nurse: PM Signed 29-Mar-2017 Emergency Department Summary Result: Comments: See Note; NOTES: [facility] Medical Records Department [address] [place] [address] Emergency Department Summary MR#: [id number] Acct: [id number] Name: RAMAKRISHNA LONGO Rep #: [id number] : 1950 66 From: Liam Whalen MD PCP: Anjelica Salguero NP Status: REG ER DATE OF SERVICE: 03/23/2017 HISTORY OF PRESENT ILLNESS: This patient who sees Anjelica Randhawafer reports eun t she forgot her cane [...] COURSE: The patient w as treated with [place], placed in a walking boot. TREATMENT PLAN: The patient will be discharged with instructions to follow up with food mixer assembler in 1 week if not improving. DISPOSITION: Home, improved, stable condition. IMPRESSION: Left foot sprain. MD Dennis Medina C: Anjelica Salguero T: NTS JOB: [id number] 03/29/17 0650 <Electronically signed by Liam Whalen MD> Date _ Liam Whalen MD Cosigner Signature (If Indicated): Date CC: Anjelica Oscar PRINCIPAL ELECTRICAL ENGINEER Date Dictated: 03/23/172102 D ate Transcribed: 03/23/172102 Clinical Resource Nurse: Signed 13-Feb-2017 Dexa Bone Density Study (HP) Result: Comments: See Note; NOTES: [facility] Imaging Services [address] [place] [address] Dexa Bone Density Study (HP) MR#: [id number] Acct: [id number] Name: SADIA LONGO Rep #: [id number] : 1950 F 66 From: Xu Davila MD PCP: Anjelica Salguero Status: REG CLI Study: Dexa Bone Density Study (HP) Date of Exam: 02/13/17 Exam# [id number] Ordering Dr: Anjelica Salguero STUDY: DUAL ENERGY [...] Xu Davila MD at 14:52 EDT Tel [phone], Service support , CC: Anjelica Salguero Clinical Resource Nurse: Signed 26-Jan-2017 Spine Lumbar (Routine) Result: Comments: See Note; NOTES: [facility] Imaging Services [address] [place] [address] Spine Lumbar (Routine) MR#: [id number] Acct: [id number] Name: SADIA LONGO Rep #: [id number] : 1950 F 66 From: Mason Gilliam MD PCP: Anjelica Salguero Status: REG CLI Study: Spine Lumbar (Routine) Date of Exam: 01/26/17 Exam# [id number] Ordering Dr: Yung Alvarez MD STUDY: MRI [...] , CC: Anjelica Salguero; Yung Alvarez MD Clinical Resource Nurse: Signed 02-Mar-2016 Cerv Spine 2 or 3 Views Result: Comments: See Note; NOTES: [facility] Imaging Services [address] [place] [address] Verdana 4d Cerv Spine 2 or 3 Views MR#: [id number] Acct: [id number] Name: SADIA LONGO Rep #: [id number] : 1950 F 65 From: Marshall Saima PCP: Anjelica Salguero Status: REG CLI Study: Cerv Spine 2 or 3 Views Date of Exam: 03/02/16 Exam# [id number] Ordering Dr: Yung Alvarez MD STUDY : [...] Marshall Landaverde DO at 23:01 EST Tel [phone], Service support [phone], CC: Anjelica Salguero; Yung Alvarez MD Clinical Resource Nurse: Signed 02-Mar-2016 Lumbar Spine 2 or 3 Views Result: Comments: See Note; NOTES: [facility] Imaging Services [address] [place] [address] Verdana 4d Lumbar Spine 2 or 3 Views MR#: [id number] Acct: [id number] Name: SADIA LONGO Rep #: [id number] : 1950 F 65 From: Marshall Landaverde DO PCP: Anjelica Salguero Status: REG CLI Study: Lumbar Spine 2 or 3 Views Date of Exam: 03/02/16 Exam# [id number] Ordering Dr: Yung Alvarez MD S TUDY: [...] tissue structures are unremarkable. 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 Electronically Signed: Marshall Landaverde DO at 23:10 EST Tel [phone], Service support [phone], CC: Anjelica Salguero; Yung Alvarez MD Clinical Resource Nurse: Signed 16-Nov-2015 Liver Result: Comments: See Note; NOTES: [facility] Imaging Services [address] [place] [address] Verdana 4d Liver MR#: [id number] Acct: [id number] Name: SADIA LONGO Rep # : [id number] : 1950 F 64 From: Apryl Melendez MD PCP: Arabella Parish DO Status: REG CLI Study: Liver Date of Exam: 11/16/15 Exam# [id number] Ordering Dr: Anjelica Salguero STUDY: ABDOMINAL ULTRASOU [...] hydronephrosis. CC: Anjelica Salguero; Arabella Parish DO Clinical Resource Nurse: Signed 16-Nov-2015 Liver Result: Comments: See Note; NOTES: [facility] Imaging Services [address] [place] [address] Verdana 4d Liver MR#: [id number] Acct: [id number] Name: SADIA LONGO Rep # : [id number] : 1950 F 64 From: Apryl Melendez MD PCP: Arabella Parish DO Status: REG CLI Study: Liver Date of Exam: 11/16/15 Exam# [id number] Ordering Dr: Anjelica Salguero STUDY: ABDOMINAL ULTRASOU [...] at 8:20 EDT Tel , Service support [phone], CC: Anjelica Salguero; Arabella Parish DO Clinical Resource Nurse: Signed 03-Sep-2015 Kidney and Bladder Result: Comments: See Note; NOTES: [facility] Imaging Services [address] [place] [address] Verdana 4d Kidney and Bladder MR#: [id number] Acct: [id number] Name: LISA LONGO Rep #: [id number] : 1950 F 64 From: Bonilla Belle DO PCP: Arabella Parish DO Status: REG CLI Study: Kidney and Bladder Date of Exam: 09/03/15 Exam# [id number] Ordering Dr: Cosmo Martin MD STUDY: RENAL [...] Bonilla Belle DO at 23:38 EDT Tel [phone], Service support [phone], CC: Arabella Parish DO; oCsmo Martin MD Clinical Resource Nurse: Signed 23-Jul-2015 Bilat Scrn Digital AND CAD Result: Comments: See Note; NOTES: [facility] Imaging Services [address] [place] [address] Verdana 4d Bilat Scrn Digital AND CAD MR#: [id number] Acct: [id number] Name: SADIA LONGO Rep #: [id number] : 1950 F 64 From: Xu Davila MD PCP: Arabella Parish DO Status: REG CLI Study: Bilat Scrn Digital AND CAD Date of Exam: 07/23/15 Exam# [id number] Boogie phan Dr: Arabella Parish DO MAMMOGRAPHY [...] bio psy of a clinically suspicious abnormality. [id number] Electronically Signed: Xu Davila MD at 13:17 EDT Tel [phone], Service support [phone], CC: Arabella Parish DO Clinical Resource Nurse: Signed 08-Jun-2015 Chest PA and Lateral Result: Comments: See Note; NOTES: [facility] Imaging Services [address] [place] [address] Verdajosselyn 4d Chest PA and Lateral MR#: [id number] Acct: [id number] Name: SADIA LONGO Rep #: [id number] : 1950 F 64 From: Brock Wright MD PCP: Fast DO,Arabella Status: REG CLI Study: Chest PA and Lateral Date of Exam: 06/08/15 Exam# [id number] Ordering Dr: Rasta Parish DO STUDY: X-RAY [...] FACR at 20:39 EST , Service support [phone], RAD/Chest PA and Lateral IMPRESSION: Mild interstitial changes in the lower lobes. No acute infiltrates or pleural effusions noted Electronically Signed: Brock Wrigth MD, FACR at 20:39 ES T , Service support [phone], CC: Arabella Parish DO Clinical Resource Nurse: Signed 04-Jun-2015 Abdomen/Pelvis without Cont Result: Comments: See Note; NOTES: [facility] Imaging Services [address] [place] [address] Verdana 4d Abdomen/Pelvis without Cont MR#: [id number] Acct: [id number] Name: SADIA LONGO Rep #: [id number] : 1950 F 64 From: Bonilla Belle DO PCP: Arabella Parish DO Status: REG CLI Study: Abdomen/Pelvis without Cont Date of Exam: 06/04/15 Exam# [id number] Ordering Dr: Arabella Gaming DO STUDY: CT [...] Bonilla Belle DO at 19:11 EST Tel [phone], Service support [phone], CC: Arabella Parish DO Clinical Resource Nurse: Signed 27-Jul-2014 Sleep Study Report Result: Comments: See Note; NOTES: [facility] [address] [place] [address] Unattended Sleep Study MR#: [id number] Acct: [id number] Name: SADIA LONGO ep #: [id number] : 1950 63 From: Mason Garnett MD PCP: Arabella Parish DO Status: REG CLI Ordering Dr.: Mason Garnett MD Date: 07/21/14 Sex: F C APNEA LINK PORTABLE POLYSOMNOGRAM: REFERRI NG PHYSICIAN: Dr. Mason Garnett. SLEEP HISTORY: The patient is a 63-year-old female with a calculated body mass index of 28.6 and an [place] Sleepiness Scale score of 20/24. The patient [...] version). Please note that a reference to [facility] in this report is consistent [...] subjective complaints, and elevated score on the [place] Sleepiness Scale are not explained by the [...] smoker Vital Signs Date Test Result Details :00 Temperature 98.1 f Comments: Method: Temporal [...] kg/m2 Body Surface Area Calculated 1.81 m2 14-Dra-276655:11 Temperature 97.6 f Pulse 78 /min Comments: [...] 1.75 m2 Results Date Description Value Details :30 T4, FREE (THYROXINE) (26021) Comments: PATIENT NOT FASTINGPERFORMED BY: [facility] [id number] [place] [id number] T4,Free(Direct) 1.93 ng/dL (Abnormal) Range: 0.82-1.77 84-Avr-980879:30 T3, FREE (TRIDOTHYRONINE) (01679) Comments: PATIENT NOT FASTINGPERFORMED BY: [facility] [id number] [place] [id number] Triiodothyronine (T3), Free 3.1 pg/mL (Normal) Range: 2.0-4.4 10-Usi-347460:30 TSH (THYROID STIMULATING Comments: PATIENT NOT FASTINGPERFORMED BY: [facility] [id number] [facility] [place] [id number] HORMONE) (11897) TSH 0.006 {uIU/mL} (Abnormal) Range: 0.450-4.500 :30 CALCIFEDIOL (49179) Comments: PATIENT NOT FASTINGPERFORMED BY: [facility] [id number] [place] [id number] Vitamin D, 25-Hydroxy 33.6 ng/mL (Normal) Range: 30.0-100.0 Comments: Vitamin D deficiency has been defined by the [place] [facility] and an Endocrine Society practice guideline as alevel of serum 25-OH vitamin D less than 20 ng/mL (1,2).The Endocrine Society went on to further define vitamin Dinsufficiency as a level between 21 and 29 ng/mL (2).1. IOM ([place] of Medicine). 2010. Dietary reference intakes for calcium and D. Jolyl [place]: The National Academies Press.2. Rodolfo MF, Dwight NC, Zeke OWUSU, et al. Evaluation, treatment, and prevention of vitamin D deficiency: an Endocrine Society clinical practice guideline. JCEM. 2010; 96(7):1911-30. 88-Umg-694917:30 CBC, Platelets & Auto Diff Comments: PATIENT NOT FASTINGPERFORMED BY: [facility] [id number] [place] [id number] (49045) Immature Grans (Abs) 0.0 {x10E3/uL} (Normal) Range: [...] 3.77-5.28 WBC 10.3 {x10E3/uL} (Normal) Range: 3.4-10.8 45-Hhb-373898:30 Metabolic Panel, Comprehensive Comments: PATIENT NOT FASTINGPERFORMED BY: [facility][id number] [facility] [id number] (19773) ALT (SGPT) 18 [iU]/L (Normal) Range: 0-32 [...] 8-27 Glucose 70 mg/dL (Normal) Range: 65-99 30-Rwe-399569:10 URINE KEE CULTURE-IDENTIFICATN Comments: PATIENT NOT FASTINGPERFORMED BY: [facility][id number] [facility] [id number] Information: SRC:UC (42770) Result 2 MUG (Normal) Comments: Mixed urogenital [...] pneumoniae, and Proteusmirabilis. Urine Final report (Abnormal) Culture,Alexanderensi ve 56-Nza-967977:11 Urinalysis, Office (44985) UA - LEUKOCYTE ESTERASE Trace (Normal) UA - NITRITE Negative (Normal) URINE UROBILINGN DENISE TIMED Normal mg/dL (Normal) UA - PROTEIN Negative mg/dL (Normal) UA - PH 6.0 (Normal) UA - BLOOD Hemolyzed Trace (Normal) UA - SPECIFIC GRAVITY 1.030 (Abnormal) UA - KETONES Negative mg/dL (Normal) UA - BILIRUBIN Negative (Normal) UA - GLUCOSE Negative (Normal) 67-Lny-656075:01 HgA1C , Office (54883) HgA1C , Office 5.3 % (Normal) Range: 4.6 - 7.1 97-Foe-941288:00 Blood Glucose , Office (52098) Blood Glucose , Office 127 (Normal) 43-Dsl-802750:54 Blood Glucose , Office (19717) Blood Glucose , Office 109 (Normal) 34-Cbw-405953:54 HgA1C , Office (57296) HgA1C , Office 5.4 % (Normal) Range: 4.6 - 7.1 40-Fef-617284:10 Miscellaneous Lab Procedure Comments: Test(s) Ordered: [id number] [address] [place], [address] [facility] Comments: [id number] 6+OXYCODONE-BUND (ng/mL)DRUG RESULT SCREEN CUTOFF____ Amphetamines,Urine Negat [...] includes Oxydodone and Oxymorphone. [facility]. ORIGINAL REPORT ON FILE IN LAB CONTAINS AD DITIONAL TEST SITE INFORMATION. 29-Eaw-616711:10 Urine Drug Screen (VISTA) Comments: List of Drugs Taken or Suspected? .[facility] [address] [place], [address] THC POSITIVE (Abnormal) PCP NEGATIVE (Normal) OPIATES [...] MUST BE ORDERED SEPARATELY. USE TESTMNEMONIC: UTCA 69-Iai-820105:33 HgA1C , Office (24138) HgA1C , Office 5.4 % (Normal) Range: 4.6 - 7.1 85-Uhg-705324:45 CPK MB FRACTION (64008) Comments: PATIENT WAS FASTINGPERFORMED BY: [facility] [place] [facility] [id number] Creatine Kinase (CK), MB 2.0 ng/mL (Normal) Range: 0.0-5.3 37-Lci-579310:45 ASSAY, TROPONIN, QUANTITATIVE Comments: PATIENT WAS FASTINGPERFORMED BY: [facility] [id number] (aka Troponin I) (28440) Troponin I <0.01 ng/mL (Normal) Range: 0.00-0.04 92-Rgj-271661:45 LIPID PANEL (93341) Comments: PATIENT WAS FASTINGPERFORMED BY: [place] [id number] [facility] [id number] LDL/HDL Ratio 1.4 {ratio_units} (Normal) Range: 0.0-3.2 Comments: LDL/HDL Ratio Men Women 1/2 Avg.Risk 1.0 1.5 Av g.Risk 3.6 3.2 2X Avg.Risk 6.2 5.0 3X Avg.Risk 8.0 6.1 LDL Cholesterol Calc 94 mg/dL (Normal) Range: 0-99 VLDL Cholesterol Mike 21 mg/dL (Normal) Range: 5-40 HDL Cholesterol 66 mg/dL (Normal) Triglycerides 107 mg/dL (Normal) Range: 0-149 Cholesterol, Total 181 mg/dL (Normal) Range: 100-199 96-Oak-665581:34 CBC, Platelets & Auto Diff Comments: PATIENT WAS FASTINGPERFORMED BY: [facility] [id number] (05691) Immature Grans (Abs) 0.0 {x10E3/uL} (Normal) Range: [...] 3.77-5.28 WBC 6.9 {x10E3/uL} (Normal) Range: 3.4-10.8 5-Ssq-002482:33 HgA1C , Office (49657) HgA1C , Office 5.3 % (Normal) Range: 4.6 - 7.1 1-Urh-300632:33 Blood Glucose , Office (92906) Blood Glucose , Office 96 (Normal) 5-Yqn-918709:24 CBC With Differential/Platelet Comments: PATIENT NOT FASTINGPERFORMED BY: [facility]CoV[facility])Pjmaiq3518 [facility] [id number] Immature Grans (Abs) 0.0 {x10E3/uL} (Normal) Range: [...] 3.77-5.28 WBC 8.8 {x10E3/uL} (Normal) Range: 3.4-10.8 8-Buk-922545:24 Comp. Metabolic Panel (14) Comments: PATIENT NOT FASTINGPERFORMED BY: [facility] Zfsgrz4438 [facility] [id number] ALT (SGPT) 18 [iU]/L (Normal) Range: 0-32 [...] Glucose, Serum 102 mg/dL (Abnormal) Range: 65-99 6-Mtg-015954:24 Lipid Panel With LDL/HDL Comments: PATIENT NOT FASTINGPERFORMED BY: imgix Gmxxmd7875 [facility] [id number] Ratio LDL/HDL Ratio 2.1 {ratio_units} Range: 0.0-3.2 [...] ng/mL (Abnormal) Comments: PATIENT NOT FASTINGPERFORMED BY: [employer] [facility] rentalsVirtua [facility] ([facility])Fhbvrl9691 [facility] [id number] 3:24 Range: 30.0-100.0 Comments: Vitamin D deficiency has been defined by the [place] of[place] and an Endocrine Society practice guideline as alevel of serum 25-OH vitamin D less than 20 ng/mL (1,2).The Endocrine Society went on to further define vitamin Dinsufficiency as a level between 21 and 29 ng/mL (2).1. IOM ([place] of [employer]). 2010. Dietary reference intakes for calcium and D. [place]: The National Academies Press.2. Rodolfo MF, Dwight NC, Zeke OWUSU, et al. Evaluation, treatment, and prevention of vitamin D deficiency: an Endocrine Society clinical practice guideline. JCEM. 2010; 96(7):1911-30. 1-Kmg-949183:58 MICROALBUMIN: CREATININE RATIO Comments: PATIENT NOT FASTINGPERFORMED BY: ZAINAB [facility] Wohzki0356 [facility] [id number] (95408) AND (16808) Microalb/Creat Ratio 14.5 {mg/g_creat} (Normal) Range: 0.0-30.0 Microalbumin, Urine 4.1 ug/mL (Normal) Creatinine, Urine 28.2 mg/dL (Normal) 9-Jua-602662:18 Miscellaneous Lab Procedure Comments: Comments: [id number] URINE DRUGTest(s) Ordered: 100018 [facility] Bvkonarotz[address] [place], [address] [facility] Comments: [id number] 6+OXYCODONE-BUND (ng/mL)DRUG RESULT SCREEN CUTOFF____ Amphetamines,Urine Negat [...] Oxydodone and Oxymorphone. ____ TESTING PERFORMED AT [facility]. ORIGINAL REPORT ON FILE IN LAB CONTAINS ADDITIONAL TEST SITE INFORMATION. :18 Urine Drug Screen (VISTA) Comments: Comments: [id number] URINE DRUGList of Drugs Taken or Suspected? [facility] [address] [place], [address] THC NEGATIVE (Normal) PCP NEGATIVE (Normal) OPIATES [...] TESTING MUST BE ORDERED SEPARATELY. USE TESTMNEMONIC: [facility] 90-Zye-970071:14 HGB A1C (96549) Comments: PATIENT NOT FASTINGPERFORMED BY: [facility] Alma6370 [facility] [id number] Hemoglobin A1c 5.6 % (Normal) Range: 4.8-5.6 Comments: . Pre-diabetes: 5.7 - 6.4 Diabetes: >6.4 Glycemic control for adults with diabetes: <7.0 48-Usq-085914:11 URINE KEE CULTURE-IDENTIFICATN Comments: PATIENT NOT FASTINGPERFORMED BY: [facility]6370 [facility] [id number] Information: SRC:SHAZIA (73451) Antimicrobial MIHEAD (Normal) Comments: S = Susceptible; [...] mL (Abnormal) Urine Final report Culture,Comprehensive (Abnormal) 70-Zzw-405753:42 Urinalysis, Office (33576) UA - LEUKOCYTE ESTERASE Moderate (Normal) UA - NITRITE Negative (Normal) URINE UROBILINGN DENISE TIMED Normal mg/dL (Normal) UA - PROTEIN Negative mg/dL (Normal) UA - PH 5 (Abnormal) UA - BLOOD Hemolyzed Small (Normal) UA - SPECIFIC GRAVITY 1.025 (Normal) UA - KETONES Negative mg/dL (Normal) UA - BILIRUBIN Negative (Normal) UA - GLUCOSE Negative (Normal) 35-Mjs-854363:58 URINE KEE CULTURE-IDENTIFICATN Comments: PATIENT NOT FASTINGPERFORMED BY: [facility] Jxygbd6144 [facility] [id number] Information: SRC: (18618) Antimicrobial MIHEAD (Normal) Comments: S = Susceptible; [...] mL (Abnormal) Urine Final report Culture,Comprehensive (Abnormal) 38-Prf-287467:45 Urinalysis, Office (50398) UA - LEUKOCYTE ESTERASE Small (Normal) UA - NITRITE Negative (Normal) URINE UROBILINGN DENISE TIMED Normal mg/dL (Normal) UA - PROTEIN Negative mg/dL (Normal) UA - PH 6 (Abnormal) UA - BLOOD Hemolyzed Small (Normal) UA - SPECIFIC GRAVITY 1.030 (Abnormal) UA - KETONES Moderate mg/dL (Normal) UA - BILIRUBIN Small (Normal) UA - GLUCOSE Negative (Normal) 49-Fyb-380595:30 Miscellaneous Lab Procedure Comments: Test(s) Ordered: 791521, [facility] [address]ikjxcxxip[address] [place], [address] [facility] Comments: 658659 6+OXYCODONE-BUND (ng/mL)DRUG RESULT SCREEN CUTOFF____ Amphetamines Negat [...] IN LAB CONTAINS ADDITIONAL TEST SITE INFORMATION. 66-Udk-444837:30 Urine Drug Screen (VISTA) Comments: List of Drugs Taken or Suspected? [facility] Ijzcyqgdlw[address] [place], [address] THC POSITIVE (Abnormal) PCP NEGATIVE (Normal) OPIATES [...] TESTING MUST BE ORDERED SEPARATELY. USE TESTMNEMONIC: [facility] 0-Oqc-579445:48 TSH (THYROID STIMULATING Comments: PATIENT NOT FASTINGPERFORMED BY: CB [facility] Sjrqtz3814 [facility] [id number] HORMONE) (24406) TSH 13.590 {uIU/mL} (Abnormal) Range: 0.450-4.500 :35 TSH (THYROID STIMULATING Comments: PATIENT NOT FASTINGPERFORMED BY: [employer] [facility] Avlgxr7167 [facility] [id number] HORMONE) (98216) TSH 0.080 {uIU/mL} (Abnormal) Range: 0.450-4.500 :35 BFDVX-XSZIGMFJZJQ-KEZVD (61919) Comments: PATIENT NOT FASTINGPERFORMED BY: CB [facility] Ipxeek2057 [facility] [id number] AFP, Serum, Tumor Marker 2.7 ng/mL (Normal) Range: 0.0-8.3 Comments: Katerin ECLIA methodology :35 SPEP (14664) Comments: PATIENT NOT FASTINGPERFORMED BY: [facility] Vdwjsp5087 [facility] [id number] Information: [id number] Please note: SPRCS (Normal) Comments: Protein electrophoresis scan will follow via computer, mail, orcourier delivery. A/G Ratio 1.1 (Normal) Range: 0.7-1.7 Globulin, Total 3.0 g/dL (Normal) Range: 2.2-3.9 M-Ramana Not Observed g/dL (Normal) Gamma Globulin 1.1 g/dL (Normal) Range: 0.4-1.8 Beta Globulin 1.0 g/dL (Normal) Range: 0.7-1.3 Cwgec-8-Lkwzvlwe 0.6 g/dL (Normal) Range: 0.4-1.0 Lhqmr-6-Oiebvctw 0.3 g/dL (Normal) Range: 0.0-0.4 Albumin 3.3 g/dL (Normal) Range: 2.9-4.4 Protein, Total, Serum 6.3 g/dL (Normal) Range: 6.0-8.5 :10 UPEP (93651) Comments: PATIENT NOT FASTINGPERFORMED BY: [employer]70 [facility] [id number] Information: [id number] Please note: SPRCS (Normal) Comments: Protein electrophoresis scan will follow via computer, mail, orcourier delivery. M-Ramana, % Not Observed % (Normal) Gamma Globulin, U 17.4 % (Normal) Beta Globulin, U 30.8 % (Normal) Dexbp-4-Lqqbxqaz, U 20.9 % (Normal) Uinqz-5-Qsriwbcg, U 7.5 % (Normal) Albumin, U 23.4 % (Normal) Protein,Total,Urine 4.9 mg/dL (Normal) 8-Paa-204040:08 urine immunofixation (62484) Comments: PATIENT NOT FASTINGPERFORMED BY: [facility] Zcbqde2857 [facility] [id number] Information: SRC:UR [id number] MIGDALIA Interpretation:U UPEIP (Normal) Comments: No monoclonality detected. 6-Ywh-494284:50 Urinalysis, Office (72177) UA - LEUKOCYTE ESTERASE Negative (Normal) UA - NITRITE Negative (Normal) URINE UROBILINGN DENISE TIMED Normal mg/dL (Normal) UA - PROTEIN Negative mg/dL (Normal) UA - PH 6.0 (Normal) Comments: 5.5 UA - BLOOD Negative (Normal) UA - SPECIFIC GRAVITY 1.030 (Abnormal) UA - KETONES Small mg/dL (Normal) UA - BILIRUBIN Negative (Normal) UA - GLUCOSE Negative (Normal) 94-Dhw-878946:30 ANTINUCLEAR ANTIBODIES DIRECT Comments: [facility] (refer to report for specific site)refer to report for address and phone number ELIJAH-DIRECT Negative (Normal) Comments: Performed at: - [facility] [id number] Director: Ren Mcgovern PhD, Phone: [phone] 95-Pni-822078:30 CBC W/Diff, Automated Comments: [facility] Boqivktvko0929 [place], [place], [id number] Absolute Lymph 2.05 {X10_3/ul} (Normal) Range: 0.83-4.51 [...] 4.2-5.4 WBC 7.9 K/mm3 (Normal) Range: 4.4-11.0 03-Wrp-446719:30 Comprehensive Metabolic Profil Comments: Serial Specimen #1, #2 or #3? [address] [place] [address] [address] [place], [place], [address] GAP 6 (Normal) Range: 5-15 CO2 27.0 [...] 7-18 GLU 101 mg/dL (Normal) Range: 70-110 99-Ftm-208284:30 CRP Comments: Serial Specimen #1, #2 or #3? [address] [place] [address] [address] [place], [address] C-REACTIVE PROT < 2.90 mg/L (Normal) Range: 0.0-3.0 Comments: C-Reactive Protein (CRP) provides useful information for thediagnosis, therapy and monitoring of inflammatory processesand associated diseases. For the evaluation of Relative Riskfor Cardiovascular Dise ase, a High Sensitivity CRP (HSCRP)should be ordered. 63-Foq-721564:30 Erythrocyte Sed Rate Comments: [facility] [address]zg[address] [place], [address] SED RATE 20 mm/h (Normal) Range: 0-30 82-Lpc-428665:30 Immunofixation Urine Comments: [facility] (refer to report for specific site)refer to report for address and phone number MIGDALIA Urine Test not performed (Normal) Comments: Quantity was not sufficient for analysis.CONTACTED MAHAD AT YOUR FACILITY 11-15-1513-Nov-201552-Fiq-920991:30 Immunofixation, Serum Comments: [facility] (refer to report for specific site)refer to report for address and phone number MIGDALIA RESULT,S Comment (Normal) Comments: No monoclonality detected. IMMUNOGL M 137 mg/dL (Normal) Range: 26-217 IMMUNO A 225 mg/dL (Normal) Range: 87-352 IMMUNO G 1077 mg/dL (Normal) Range: 700-1600 67-Oys-927912:30 [place] Lambda Light Chains Comments: [facility] (refer to report for specific site)refer to report for address and phone number KAPPA/LAMBDA % 1.03 (Normal) Range: 0.26-1.65 FR LAMBDA LT CH 17.65 mg/L (Normal) Range: 5.71-26.30 FR KAPPA LT CHN 18.21 mg/L (Normal) Range: 3.30-19.40 36-Atx-444868:30 LDH 201 U/L (Normal) Comments: Serial Specimen #1, #2 or #3? [facility] Wuttvtouda[address] [place], [place], [address] Range: 84-246 58-Lyw-164607:30 Microalb:Creat Ratio,Random UR Comments: [facility] [address]tdx[address] [place], [address] MALB:CREAT 7.0 {mg/g_CRE} (Normal) MICROALBUMIN,UR 10.3 mg/L (Normal) UR CREAT 148.00 mg/dL (Normal) 19-Fvl-090334:30 Protein Electro.Ur-Random Comments: [facility] (refer to report for specific site)refer to report for address and phone number NOTE Comment (Normal) Comments: Protein electrophoresis scan will follow via computer,mail, or coating machine helper delivery. M-SPIKE,U Test not performed (Normal) GAMMA GLOB,U Test not performed (Normal) Comments: Test not performed BETA GLOB,U Test not performed (Normal) Comments: Test not performed QGPZV-4-CMWJ,U Test not performed (Normal) Comments: Test not performed QCIDQ-0-DZKK,U Test not performed (Normal) Comments: Test not performed ALBUMIN,UR Test not performed (Normal) Comments: Test not performed PROTEIN,UR Test not performed mg/dL Comments: Quantity was not sufficient for analysis.CONTACTED MAHAD AT YOUR FACILITY 11-15-15 (Normal) 34-Mgv-931643:30 Urinalysis, Routine (Dipstick) Comments: How was Urine Obtained? CLEAN [facility] [address] [place], [address] LEUK ESTERASE 25 /ul (Abnormal) OCCULT BLOOD-UR 25 /ul (Abnormal) NITRITE UR Negative (Normal) UROBILI Normal mg/dL (Normal) PROT DIPSTX Negative mg/dL (Normal) pH UR 5.0 (Normal) Range: 5.0 - 8.0 SP.GR. DIPSTX 1.025 (Normal) Range: 1.002-1.030 KETONE UR Negative mg/dL (Normal) BILIRUBIN URINE Negative mg/dL (Normal) GLUCOSE, UR Normal mg/dL (Normal) CLARITY Clear (Normal) COLOR Yellow (Normal) 92-Hil-547605:00 Cytology, Body Fluid / CSF Comments: Specimen Source: [facility] [address] [place], [address] CYTOLOGY,BF/CSF SEE PATHOLOGY REPORT Comments: Specimen submitted to Anatomical Pathology Department fortesting. (Normal) 53-Zzc-277662:00 CYTOSPIN ON FLUID See Note (Normal) Comments: [facility] [address] [place], [address] Comments: Patient: SADIA LONGO : 1950 (64/F) Acct Num: [id number] Phys: Veronica GARZA,Cosmo Mishra Unit Num: [id number] Loc: [facility] Specimen: [id number] Received: 08/31/15 - 1314 Spec Type: CYSPIN FL TISSUES TISSUES: CULTURE RESULTS No results available. CYTOLOGY GROSS Received is 10 ml of clear gold fluid labeled with the patient's name and and designat ed per the requisition as urine. Submitted for cytology preparation. / 08/31/15 TC:5 CPT:79003 CYTOLOGY STUDY Slides are reviewed. The specimen consists of benign squamous cells, benign urothelial cells and neutrophils. DIAGNOSIS CYTOLOGY Urine for cytology (cytospin): Negative for malignant cells. SJ:meliza 09/01/15 HEADER OPERATION: Not noted PRE-OP DIAGNOSIS: Hematu johnnie TISSUE SUBMITTED: Urine cytology Signed Samy Zayas 09/01/15 <signature on file> 73-Xxn-197411:04 Urinalysis, Office (56095) UA - LEUKOCYTE ESTERASE Negative (Normal) UA - NITRITE Negative (Normal) URINE UROBILINGN DENISE TIMED Normal mg/dL (Normal) UA - PROTEIN Negative mg/dL (Normal) UA - PH 5 (Abnormal) UA - BLOOD Hemolyzed Trace (Normal) UA - SPECIFIC GRAVITY 1.030 (Abnormal) UA - KETONES Negative mg/dL (Normal) UA - BILIRUBIN Negative (Normal) UA - GLUCOSE Negative (Normal) 95-Buo-651833:52 URINE KEE CULTURE-IDENTIFICATN Comments: PATIENT NOT FASTINGPERFORMED BY: [facility] Mzwyxi3784 [facility] [id number] Information: [id number] (20671) Antimicrobial MIHEAD (Normal) Comments: S = Susceptible; [...] of Care Name Dates Details Instructions BMI 33.0-33.9,adult : Follow up in 2 [...] pain syndrome) Planned Observations T4, FREE (THYROXINE) (81349)Indication: Acquired hypothyroidism On: :21 Request TSH (THYROID STIMULATING HORMONE) (24181)Indication: Acquired hypothyroidism On: :21 Request T3, FREE (TRIDOTHYRONINE) (96113)Indication: Acquired hypothyroidism On: 27-Efy-572362:21 Request Blood Glucose , Office (03401)Indication: Diabetes mellitus type II, controlled On: 02-Hxl-423811:33 Request Lipid Panel (98928)Indication: High triglycerides On: 0-Usw-608723:10 Request CALCIFEDIOL (89577)Indication: Osteopenia On: 1-Ldl-211922:51 Request CBC, Platelets & Auto Diff (96913)Indication: Hypertension On: 6-Woa-963334:49 Request Lipid Panel (40998)Indication: Hypertension On: 3-Mvk-517322:49 Request Metabolic Panel, Comprehensive (15561)Indication: Hypertension On: :49 Request Urinalysis, Office (04091)Indication: Hypertension On: 6-Sva-314666:49 Request CALCIFEDIOL (71480)Indication: Vitamin D deficiency On: 0-Pcy-099098:55 Request TSH (THYROID STIMULATING HORMONE) (13945)Indication: Acquired hypothyroidism On: :51 Request CBC, Platelets & Auto Diff (66338)Indication: Diabetes mellitus type II, controlled On: Request Metabolic Panel, Comprehensive (95079)Indication: Diabetes mellitus type II, controlled On: Request Metabolic Panel, Comprehensive (95017)Indication: Fatty liver On: :24 Request HKQCC-BOEVAJXWJNM-DZUXA (49845)Indication: Fatty liver On: :23 Request serum free light chains (64845)Indication: Swelling of both lower extremities On: Request UPEP (25636)Indication: Swelling of both lower extremities On: Request urine immunofixation (89412)Indication: Swelling of both lower extremities On: Request serum immunofixation (80120)Indication: Swelling of both lower extremities On: Request URINALYSIS (54725)Indication: Swelling of both lower extremities On: Request MICROALBUMIN: CREATININE RATIO (46996) AND (52306)Indication: Swelling of both lower extremities On: Request BLOOD SMEAR, W/O MANUAL DIFF WBC (64286)Indication: Lymphadenopathy On: Request LDH (LD) (LACTATE DEHYDROGENASE) (55737)Indication: Lymphadenopathy On: Request ELIJAH (ANTINUCLEAR ANTIBODY) (98240)Indication: Lymphadenopathy On: Request C-REACTIVE PROTEIN (52416)Indication: Lymphadenopathy On: Request SED RATE ERYTHROCYTE (98948)Indication: Lymphadenopathy On: Request METABOLIC PANEL, COMPREHENSIVE (83419)Indication: Lymphadenopathy On: Request CBC, Platelets & Auto Diff (58147)Indication: Gingivitis On: : Request METABOLIC PANEL, COMPREHENSIVE (52069)Indication: High triglycerides On: : Request LIPID PANEL (94840)Indication: High triglycerides On: :55 Request TSH (13187)Indication: Acquired hypothyroidism On: :54 Request VITAMIN B-12 (CYANOCOBALAMIN) (31921)Indication: Memory change On: :54 Request TSH (34210)Indication: Acquired hypothyroidism On: :54 Request METABOLIC PANEL, COMPREHENSIVE (23451)Indication: Diabetes mellitus type II, controlled On: :53 Request CBC with auto diff (45540)Indication: Diabetes mellitus type II, controlled On: :53 Request LIPID PANEL (16100)Indication: Diabetes mellitus type II, controlled On: :53 Request MICROALBUMIN: CREATININE RATIO (58407) AND (45352)Indication: Diabetes mellitus type II, controlled On: :53 Request SED RATE ERYTHROCYTE (83883)Indication: Fatigue On: :51 Request C-REACTIVE PROTEIN (13472)Indication: Fatigue On: 46-Ooo-786503:51 Request FERRITIN (32849)Indication: Fatigue On: :51 Request IRON (69459)Indication: Fatigue On: 90-Jvx-466883:51 Request ALDOLASE (61009)Indication: Fibromyalgia (Renamed from Diffuse myofascial pain syndrome) On: 87-Jks-758223:51 Request Creatine Kinase Total (12707)Indication: Fibromyalgia (Renamed from Diffuse myofascial pain syndrome) On: 24-Xem-872350:51 Request SPEP (96056)Indication: Fatigue On: 11-Lpd-255005:51 Request UPEP (71942)Indication: Fatigue On: 43-Kdb-097643:51 Request FOLIC ACID SERUM (38649)Indication: Fatigue On: 70-Dzz-807373:51 Request VITAMIN B-12 (CYANOCOBALAMIN) (59161)Indication: Fatigue On: 27-Agv-961900:51 Request URINALYSIS, W/ MICRO (38084)Indication: Fatigue On: 03-Nkl-748580:50 Request METABOLIC PANEL, COMPREHENSIVE (44154)Indication: Fatigue On: 55-Ipi-386551:50 Request Planned Encounters Medical; 2 Week FU - On: 01-Mar-2018 10:30 [facility] Anjelica Salguero CNP, CNP, Mary E Planned Procedures SCREENING DIGITAL TOMOSYNTHESIS OF On: 31-Jul-2017 Intent BREAST (20653)By: Ciesa Anjelica ANGELES CNP, Mary E ELECTROCARDIOGRAM, COMPLETE (ECG) On: 02-May-2017 Intent (40705)By: Anjelica Salguero CNP, CNP, Mary E ELECTROCARDIOGRAM, COMPLETE (ECG) On: 23-Mar-2017 Intent (31195)By: Sydneelisasatish Anjelica ANGELES CNP, Mary E DEXA SCAN AXIAL SKELETON (41625)By: On: 23-Jan-2017 Intent Anjelica Salguero CNP, CNP, Mary E Ear Irrigation (92503)By: Oscar On: 17-Oct-2016 Intent Anjelica ANGELES CNP, Mary E Wax CurettesBy: Gagandeepsatish ANGELES Anjelica Hutchinson On: 17-Oct-2016 Intent Sydneelisasatish ANGELES Anjelica Hutchinson MAMMOGRAM BREAST BILATERAL SCREENING On: 14-Jul-2016 Intent DIGITAL (43439)By: Oscar ANGELESAnjelica CNP, Mary E Ultrasound - LiverBy: Oscar ANGELES, On: 12-Nov-2015 Intent Anjelica Hernandez CNP CT - Chest (Without Contrast)By: On: 08-Sep-2015 Intent Arabella Parish DO INJECTION, PROLIA (J0897)By: Jem On: 24-Aug-2015 Intent Arabella WONG Comments: Lot:[id number]:12/08Dose:60mlRoute:sub qSite:l armGiven By:SARIKA signed CHEST CT WITHOUT CONTRAST (64504)By: On: 06-Jul-2015 Intent Arabella Parish DO Comments: HIGH RESOLUTION CT - Chest (Without Contrast)By: On: 29-Jun-2015 Intent Arabella Parish DO Comments: HIGH RESOLUTION Radiology - ChestBy: Arabella Parish DO On: 07-Jun-2015 Intent A Comments: PA&L CT - Abdomen & Pelvis (Without On: 04-Jun-2015 Intent Contrast)By: Arabella Parish DO Comments: stat call wet read MAMMOGRAM, SCREENING, BOTH BREAST On: 04-Jun-2015 Intent (18327)By: Arabella Parish DO MAMMOGRAM, SCREENING, BOTH BREAST On: 26-Feb-2015 Intent (21992)By: Arabella Parish DO Flu Vaccine (Quadrivalent) 54075Sv: On: 26-Feb-2015 Intent Arabella Parish DO ADMINISTRATION OF INFLUENZA VIRUS On: 26-Feb-2015 Intent VACCINE (G0008)By: Arabella Parish DO Comments: Lot #[id number]-L dltd, IMDose prefilled syringegiven by:CODY uSmmers and ABN signed Doppler Ultrasound OtherBy: Jem [...] 31.0-31.9,adult Fatigue : DISCONTINUED - LIPID PANEL (13257) Indication: Fatigue Nonsmoker : How to access [...] liver : DISCONTINUED - METABOLIC PANEL, COMPREHENSIVE (11208) Indication: Fatty liver Fatty liver : DISCONTINUED - YSVIT-MQNNCVYGQAT-TVMTS (61457) Indication: Fatty liver Depression : DISCONTINUED - CALCIFEDIOL (24933) Indication: Depression Nonsmoker : How to access [...] Diffuse myofascial pain syndrome) Encounters Annotation/Addendum On: 11-Feb-2018 17:44 Encounter Diagnosis: UTI [...] (). Note for Discuss procedure results: Saw Firesetter Dr. Skyler Odonnell at [facility] now needs nursery technician, End: 01-May-2017 15:42 [ADDITIONAL REASON] Follow [...] complaints (pre-cancerous areas on face,. IPL trillium karuk), has decreased energy level and is sleeping [...] weight stable- went to sisters wedding in [place] with help of daughter and felt singificiantly [...] thinks maybe with bm- happened when in [place]- drinking more water- not much fiber - [...] peanut butter - no meat some cheese thai yogurt- saw Mariola and ordered sleep study [...]
--- OUTSIDE RECORDS SUMMARY | 2018-05-15 06:21 | XMS RPT_ITS | Continuity of Care Document ---
:1950 Author Organization [facility] Address [address] [facility] [address] [place] [address] Phone Care Team Providers Name Role Phone Oscar KARTHIK, Paloma Unavailable Mason Garnett Unavailable Neftaly Rose MD Unavailable Garth GARZA, Yaniv King Unavailable Khushbu Cevallos Unavailable Unavailable Slarb SET DESIGNER, Dora Unavailable Unavailable Long SET DESIGNER, Bina Hernandez Unavailable Unavailable Tiesha Avina Unavailable [...] in Nov now 18.99 labs done at [facility] will repeat with our lab today andnow seeing Barrie most recent tsh undectable per pt.she is asking for another specialist or myself to follow Status: Active Acquired hypothyroidism (E03.9, 244.9) Comments: Seeing Dr. Lobato in [place] on tircent they monitor Status: Active Allergic [...] stopped seeing Barrington Wayne seeing Dany in [place] Status: Active Encounter for gynecological examination without [...] treated initially by endocrine, [facility] and management labs, ekg todaytakes [...] Relief 50 MCG/ACT Nasal Suspension 2 (two) Westphalia Westphalia daily for 0 days Quantity: 1 {Westphalia} Refills: 0 Ordered:05-Feb-2018 Khushbu Cevallos Start : [...] Quantity: 30 {Capsule} Refills: 3 Ordered:31-Jul-2017 Joey iLriano LPNn L Start : 23-Mar-2017 End : [...] Quantity: 30 {Capsule} Refills: 0 Ordered:05-Feb-2018 Oscar PAN DEVULCANIZER, Anjelica LEDYmichelle PAN DEVULCANIZER, Anjelica Hutchinson Start : 02-Nov-2017 End : [...] and polycystic ovaries- 1990s Date Value Details 22-Aug-2017 SCREENING MAMM (CAD), BILAT Result: Comments: See Note; NOTES: [facility] Imaging Services [address] [place] [address] SCREENING MAMM (CAD), BILAT MR#: [id number] Acct: [id number] Name: SADIA LONGO Rep #: [id number] : 1950 F 66 From: Xu Davila MD PCP: Anjelica Salguero NP Status: REG CLI Study: SCREENING MAMM (CAD), BILAT Date of Exam: 08/22/17 Exam# [id number] Ordering Dr: Anjelica Salguero MAMMO GRAPHY - [...] biopsy of a clinically suspicious abnorm ality. [id number] Electronically Signed: Xu Davila MD at 9:48 EDT Tel [phone], Service support , CC: Anjelica Salguero NP Director Digital Communications: Signed 15-Jun-2017 Echocardiogram Complete Result: Comments: See Note; NOTES: [facility] Cardiovascular Services [address] [place] [address] Echo Complete 06/15/1733 MR#: [id number] Acct: [id number] Name: SADIA LONGO Rep #: [id number] : 1950 66 From: Yaniv Liang MD Attending Dr: Yaniv Liang MD Status: REG CLI Ordering Dr: Yaniv Liang MD Date: 06/15/17 Location: [facility] Sex: F C Admitted: Reason Fo r [...] Date Yaniv Liang MD CC: Anjelica Salguero STAFF DEVELOPMENT MANAGER; Yaniv mera MD Date Dictated: 06/15/17 0933 Date Transcribed: 06/15/171642 Director Digital Communications: Signed 15-Jun-2017 Stress Report Result: Comments: See Note; NOTES: [facility] Cardiovascular Services [address] [place] [address] MR#: [id number] Acct: [id number] Name: RAMAKRISHNA LONGOSatish Collins Rep #: [id number] : [birth year] 66 From: Yaniv Liang MD [...] of 92%. This note was generated with JoggleBug software. It may contain incorrect words, spelling, and punctuation that were not noted in checking the note before signing. 8 1019 <Electronically signed by Yaniv Liang MD> Date Yaniv Liang MD CC: Anjelica Salguero NP; Yaniv Liang MD Date Dictated: 06/15/17 1014 Date Transcribed: 06/15/17 1014 Director Digital Communications: PM Signed 13-Jun-2017 Lumbar Spine 2 or 3 Views Result: Comments: See Note; NOTES: [facility] Imaging Services [address] [place] [address] Lumbar Spine 2 or 3 Views MR#: [id number] Acct: [id number] Name: SADIA LONGO Rep #: [id number] : 1950 F 66 From: Robert Saba DO PCP: Anjelica Salguero NP Status: REG CLI Study: Lumbar Spine 2 or 3 Views Date of Exam: 06/13/17 Exam# [id number] Ordering Dr: Yung Alvarez MD STUDY: X-RAY [...] , Service support , CC: Anjelica Salguero STAFF DEVELOPMENT MANAGER; Yung Alvarez MD Director Digital Communications: Signed 31-May-2017 Cardiology Visit Report Result: Comments: See Note; NOTES: [facility] [address] [place] [address] OFFICE VISIT Date of Service: 05/31/17 MR#: [id number] Acct: [id number] Name: SADIA LONGO Rep #: [id number] : 1950 Provider: Yaniv Liang MD Age/Sex: 66/F [facility] [facility] Status: Signed HPI HPI Details: SADIA LONGO, is a 66 F who presents to the office today for for outpatien t cardiovascular consultation based on concerns of shortness of breath/dyspnea, chest discomfort, and fatigue superimposed upon a reported history of underlying CAD. She states she has previously been e valuated by Dr. Murray Patterson of cardiology in the [place], [place] area. She notes in the past [...] study performed in June [address] [facility] system. According to the report [...] of non-cardiovascular issues. Based upon notes from [facility] from 06/16/2012 it appears at that time [...] 60 mg/mL subcutaneous syringe 60 mg SC [id number] 05/30/17 [Hi story Confirmed 05/31/17] epinephrine 0.3 [...] mg PO QDAY 05/31/17 [History Confirmed ] [facility] Medical History Palpitations (Acute) SOB (shortness of [...] to this approach. Follow Up 6 Weeks (PA/STAFF DEVELOPMENT MANAGER) Coding Level of Care Code Off vis,new,level [...] NP 31-May-2017 [address] [facility] Result: Comments: See Note; NOTES: [facility] [address] [place] [address] 12 Lead E[address] performed [facility] 05/31/17 1413 MR#: [id number] Acct: [id number] Name: SADIA LONGO Rep #: [id number] : 1950 66 From: Yaniv Liang MD Attending Dr: Yaniv Liang MD Status: DEP AMB Ordering Dr: Yaniv Liang MD Date: 05/31/17 Location: [facility] Sex: F C Admitted: [facility]12 Lead EKG performed by [facility] ECG Report Interpretation Sinus Rhythm Poor R wave progressionElectronically signed on 05/31/2017 at 16:10 by Esvin Liang 05/31/17 1612 Date Yaniv Liang MD CC: Anjelica Salguero NP Date Dictated: 05/31/17 1413 Date Transcribed: 05/31/171412 Director Digital Communications: PM Signed 29-Mar-2017 Emergency Department Summary Result: Comments: See Note; NOTES: [facility] Medical Records Department [address] [place] [address] Emergency Department Summary MR#: [id number] Acct: [id number] Name: RAMAKRISHNA LONGO Rep #: [id number] : 1950 66 From: Liam Whalen MD [...] COURSE: The patient w as treated with Lissie, placed in a walking boot. TREATMENT PLAN: The patient will be discharged with instructions to follow up with swine nutritionist in 1 week if not improving. DISPOSITION: Home, improved, stable condition. IMPRESSION: Left foot sprain. Liam Whalen MD C C: Anjelica Oscar T: NTS JOB: [id number] 03/29/17 0650 <Electronically signed by Liam Whalen MD> Date _ Liam Whalen MD Cosigner Signature (If Indicated): Date CC: Anjelica Salguero STAFF DEVELOPMENT MANAGER Date Dictated: 03/23/172102 D ate Transcribed: 03/23/172102 Director Digital Communications: Signed 13-Feb-2017 Dexa Bone Density Study (HP) Result: Comments: See Note; NOTES: [facility] Imaging Services [address] [place] [address] Dexa Bone Density Study () MR#: [id number] Acct: [id number] Name: SADIA LONGO Rep #: [id number] : 1950 F 66 From: Xu Davila MD PCP: Anjelica Salguero Status: REG CLI Study: Dexa Bone Density Study () Date of Exam: 02/13/17 Exam# [id number] Ordering Dr: Anjelica Salguero STUDY: DUAL ENERGY [...] Xu Davila MD at 14:52 EDT Tel [phone], Service support , CC: Anjelica Salguero Director Digital Communications: Signed 26-Jan-2017 Spine Lumbar (Routine) Result: Comments: See Note; NOTES: [facility] Imaging Services [address] [place] [address] Spine Lumbar (Routine) MR#: [id number] Acct: [id number] Name: SADIA LONGO Rep #: [id number] : 1950 F 66 From: Mason Gilliam MD PCP: Anjelica Salguero Status: REG CLI Study: Spine Lumbar (Routine) Date of Exam: 01/26/17 Exam# [id number] Ordering Dr: Yung Alvarez MD STUDY: MRI [...] Service support , CC: Anjelica Alvarez MD Director Digital Communications: Signed 02-Mar-2016 Cerv Spine 2 or 3 Views Result: Comments: See Note; NOTES: [facility] Imaging Services [address] [place] [address] Verdana 4d Cerv Spine 2 or 3 Views MR#: [id number] Acct: [id number] Name: SADIA LONGO Rep #: [id number] : 1950 F 65 From: Marshall Landaverde DO PCP: Anjelica Salguero Status: REG CLI Study: Cerv Spine 2 or 3 Views Date of Exam: 03/02/16 Exam# [id number] Ordering Dr: Yung Alvarez MD STUDY : [...] Marshall Landaverde DO at 23:01 EST Tel [phone], Service support [phone], CC: Anjelica Alvarez MD Director Digital Communications: Signed 02-Mar-2016 Lumbar Spine 2 or 3 Views Result: Comments: See Note; NOTES: [facility] Imaging Services [address] [place] [address] Verdana 4d Lumbar Spine 2 or 3 Views MR#: [id number] Acct: [id number] Name: SADIA LONGO Rep #: [id number] : 1950 F 65 From: Marshall Landaverde DO PCP: Anjelica Salguero Status: REG CLI Study: Lumbar Spine 2 or 3 Views Date of Exam: 03/02/16 Exam# [id number] Ordering Dr: Yung Alvarez MD TUDY: X-RAY - LUMBAR SPINE REASON FOR [...] tissue structures are unremarkable. 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 Electronically Signed: Marshall Landaverde DO at 23:10 EST Tel [phone], Service support [phone], CC: Anjelica Salguero; Yung Alvarez MD Director Digital Communications: Signed 16-Nov-2015 Liver Result: Comments: See Note; NOTES: [facility] Imaging Services [address] [address] Verdana 4d Liver MR#: [id number] Acct: [id number] Name: SADIA LONGO Rep # : [id number] : 1950 F 64 From: Apryl Melendez MD PCP: Arabella Parish DO Status: REG CLI Study: Liver Date of Exam: 11/16/15 Exam# [id number] Ordering Dr: Anjelica Salguero STUDY: ABDOMINAL ULTRASOU [...] hydronephrosis. CC: Anjelica Salguero; Arabella Parish DO Director Digital Communications: Signed 16-Nov-2015 Liver Result: Comments: See Note; NOTES: [facility] Imaging Services [address] [place] [address] Verdana 4d Liver MR#: [id number] Acct: [id number] Name: SADIA LONGO Rep # : [id number] : 1950 F 64 From: Apryl Melendez MD PCP: Arabella Parish DO Status: REG CLI Study: Liver Date of Exam: 11/16/15 Exam# [id number] Ordering Dr: Anjelica Salguero STUDY: ABDOMINAL ULTRASOU [...] at 8:20 EDT Tel , Service support [phone], CC: Anjelica Salguero; Arabella Parish DO Director Digital Communications: Signed 03-Sep-2015 Kidney and Bladder Result: Comments: See Note; NOTES: [facility] Imaging Services [address] [place] [address] Verdana 4d Kidney and Bladder MR#: [id number] Acct: [id number] Name: DONTALISA Collins Rep #: [id number] : 1950 F 64 From: Bonilla Belle DO PCP: Arabella Parish DO Status: REG CLI Study: Kidney and Bladder Date of Exam: 09/03/15 Exam# [id number] Ordering Dr: Cosmo Martin MD STUDY: RENAL [...] Bonilla Belle DO at 23:38 EDT Tel [phone], Service support [phone], CC: Arabella Parish DO; Cosmo Martin MD Director Digital Communications: Signed 23-Jul-2015 Bilat Scrn Digital AND CAD Result: Comments: See Note; NOTES: [facility] Imaging Services [address] [place] [address] Verdana 4d Bilat Scrn Digital AND CAD MR#: [id number] Acct: [id number] Name: SADIA LONGO Rep #: [id number] : 1950 F 64 From: Xu Davila MD PCP: Arabella Parish DO Status: REG CLI Study: Lesley Keyes Digital AND CAD Date of Exam: 07/23/15 Exam# [id number] Orderin g Dr: Arabella Parish DO MAMMOGRAPHY - BILATERAL [...] bio psy of a clinically suspicious abnormality. [id number] Electronically Signed: Xu Davila MD at 13:17 EDT Tel [phone], Service support [phone], CC: Arabella Parish DO Director Digital Communications: Signed 08-Jun-2015 Chest PA and Lateral Result: Comments: See Note; NOTES: [facility] Imaging Services [address] [place] [address] Peter 4d Chest PA and Lateral MR#: [id number] Acct: [id number] Name: SADIA LONGO Rep #: [id number] : 1950 F 64 From: Brock Wright MD PCP: Arabella Parish DO Status: REG CLI Study: Chest PA and Lateral Date of Exam: 06/08/15 Exam# [id number] Ordering Dr: Rasta Parish DO STUDY: X-RAY [...] FACR at 20:39 EST , Service support [phone], RAD/Chest PA and Lateral IMPRESSION: Mild interstitial changes in the lower lobes. No acute infiltrates or pleural effusions noted Electronically Signed: Brock Wright MD, FACR at 20:39 ES T , Service support [phone], CC: Arabella Parish DO Director Digital Communications: Signed 04-Jun-2015 Abdomen/Pelvis without Cont Result: Comments: See Note; NOTES: [facility] Imaging Services [address] [place] [address] Verdana 4d Abdomen/Pelvis without Cont MR#: [id number] Acct: [id number] Name: SADIA LONGO Rep #: [id number] : 1950 F 64 From: Bonilla Belle DO PCP: Arabella Parish DO Status: REG CLI Study: Abdomen/Pelvis without Cont Date of Exam: 06/04/15 Exam# [id number] Ordering Dr: Arabella Gaming DO STUDY: CT [...] in the lung bases. Electronically Signed: Bonilla DO Yoshi at 19:11 EST Tel [phone], Service support , CC: Arabella Parish DO Director Digital Communications: Signed 27-Jul-2014 Sleep Study Report Result: Comments: See Note; NOTES: [facility] [address] [place] [address] Unattended Sleep Study MR#: [id number] Acct: [id number] Name: SADIA LONGO ep #: [id number] : 1950 63 From: Mason Garnett MD PCP: Arabella Parish DO Status: REG CLI Ordering Dr.: Mason Garnett MD Date: 07/21/14 Sex: F C APNEA LINK PORTABLE POLYSOMNOGRAM: REFERRI DYLON PHYSICIAN: Dr. Mason Garnett. SLEEP HISTORY: The patient is a 63-year-old female with a calculated body mass index of 28.6 and an Wanda Sleepiness Scale score of 20/24. The patient [...] that a reference to [facility] in this report is consistent with [...] subjective complaints, and elevated score on the Wanda Sleepiness Scale are not explained by the [...] smoker Vital Signs Date Test Result Details 6-Aqk-091982:50 Temperature 97.5 f Comments: Method: Temporal Pulse [...] 1.75 m2 Results Date Description Value Details 3-Eeq-636970:08 Urinalysis, Office (52461) UA - LEUKOCYTE ESTERASE Negative (Normal) UA - NITRITE Negative (Normal) URINE UROBILINGN DENISE TIMED Normal mg/dL (Normal) UA - PROTEIN Negative mg/dL (Normal) UA - PH 6 (Abnormal) UA - BLOOD Hemolyzed Trace (Normal) UA - SPECIFIC GRAVITY 1.030 (Abnormal) UA - KETONES Negative mg/dL (Normal) UA - BILIRUBIN Negative (Normal) UA - GLUCOSE Negative (Normal) 78-Fjk-335590:30 T4, FREE (THYROXINE) (51588) Comments: PATIENT NOT FASTINGPERFORMED BY: FixationalDr. Dan C. Trigg Memorial HospitalCrbgvy5178 [facility] [id number] T4,Free(Direct) 1.93 ng/dL (Abnormal) Range: 0.82-1.77 44-Him-432079:30 T3, FREE (TRIDOTHYRONINE) (39964) Comments: PATIENT NOT FASTINGPERFORMED BY: zahn[facility]rum.ch Gaifud5783 [facility] [id number] Triiodothyronine (T3), Free 3.1 pg/mL (Normal) Range: 2.0-4.4 02-Upl-221012:30 TSH (THYROID STIMULATING Comments: PATIENT NOT FASTINGPERFORMED BY: [facility] Bjdshe6802 [facility] [id number] HORMONE) (75951) TSH 0.006 {uIU/mL} (Abnormal) Range: 0.450-4.500 83-Ryk-255672:30 CALCIFEDIOL (52952) Comments: PATIENT NOT FASTINGPERFORMED BY: [facility] Huwgly2534 [facility] [id number] Vitamin D, 25-Hydroxy 33.6 ng/mL (Normal) Range: 30.0-100.0 Comments: Vitamin D deficiency has been defined by the [facility] and an Endocrine Society practice guideline as alevel of serum 25-OH vitamin D less than 20 ng/mL (1,2).The Endocrine Society went on to further define vitamin Dinsufficiency as a level between 21 and 29 ng/mL (2).1. IOM ([place] [employer]). 2010. Dietary reference intakes for calcium and D. [place]: The National Academies Press.2. Rodolfo MF, Dwight NC, Zeke OWUSU, et al. Evaluation, treatment, and prevention of vitamin D deficiency: an Endocrine Society clinical practice guideline. JCEM. 2010; 96(7):1911-30. 45-Qsh-896838:30 CBC, Platelets & Auto Diff Comments: PATIENT NOT FASTINGPERFORMED BY: [facility] Hmlrkx4218 [facility] [id number] (32839) Immature Grans (Abs) 0.0 {x10E3/uL} (Normal) Range: [...] 3.77-5.28 WBC 10.3 {x10E3/uL} (Normal) Range: 3.4-10.8 14-Mzd-441683:30 Metabolic Panel, Comprehensive Comments: PATIENT NOT FASTINGPERFORMED BY: LabCoOverlook Medical CenterMmkrbe5894 [facility] [id number] (66147) ALT (SGPT) 18 [iU]/L (Normal) Range: 0-32 [...] 8-27 Glucose 70 mg/dL (Normal) Range: 65-99 73-Cih-123578:10 URINE KEE CULTURE-IDENTIFICATN Comments: PATIENT NOT FASTINGPERFORMED BY: LabCoOverlook Medical CenterMjbrkg5615 Quinteros RoadNovant Health [id number] Information: SRC:SHAZIA (21816) Result 2 MUG (Normal) Comments: Mixed urogenital [...] pneumoniae, and Proteusmirabilis. Urine Final report (Abnormal) Culture,Safia flores 85-Egs-878974:11 Urinalysis, Office (94408) UA - LEUKOCYTE ESTERASE Trace (Normal) UA - NITRITE Negative (Normal) URINE UROBILINGN DENISE TIMED Normal mg/dL (Normal) UA - PROTEIN Negative mg/dL (Normal) UA - PH 6.0 (Normal) UA - BLOOD Hemolyzed Trace (Normal) UA - SPECIFIC GRAVITY 1.030 (Abnormal) UA - KETONES Negative mg/dL (Normal) UA - BILIRUBIN Negative (Normal) UA - GLUCOSE Negative (Normal) 29-Mbq-969053:01 HgA1C , Office (82528) HgA1C , Office 5.3 % (Normal) Range: 4.6 - 7.1 14-Ecn-032948:00 Blood Glucose , Office (90590) Blood Glucose , Office 127 (Normal) :54 Blood Glucose , Office (00389) Blood Glucose , Office 109 (Normal) :54 HgA1C , Office (66177) HgA1C , Office 5.4 % (Normal) Range: 4.6 - 7.1 :10 Miscellaneous Lab Procedure Comments: Test(s) Ordered: [id number] [address] [place], [address] [facility] Comments: 563432 6+OXYCODONE-BUND (ng/mL)DRUG RESULT SCREEN CUTOFF____ Amphetamines,Urine Negat [...] includes Oxydodone and Oxymorphone. TESTING PERFORMED AT [facility]. ORIGINAL REPORT ON FILE IN LAB CONTAINS AD DITIONAL TEST SITE INFORMATION. 47-Sip-889563:10 Urine Drug Screen (VISTA) Comments: List of Drugs Taken or Suspected? .[facility] [address] [place], [address] THC POSITIVE (Abnormal) PCP NEGATIVE (Normal) OPIATES [...] TESTING MUST BE ORDERED SEPARATELY. USE TESTMNEMONIC: [facility] 15-Rhm-338937:33 HgA1C , Office (65878) HgA1C , Office 5.4 % (Normal) Range: 4.6 - 7.1 00-Rkn-743148:45 CPK MB FRACTION (50709) Comments: PATIENT WAS FASTINGPERFORMED BY: AirKast6370 [facility] [id number] Creatine Kinase (CK), MB 2.0 ng/mL (Normal) Range: 0.0-5.3 38-Suz-902631:45 ASSAY, TROPONIN, QUANTITATIVE Comments: PATIENT WAS FASTINGPERFORMED BY: DoughMain70 [facility] [id number] (aka Troponin I) (15234) Troponin I <0.01 ng/mL (Normal) Range: 0.00-0.04 91-Lvh-045398:45 LIPID PANEL (66463) Comments: PATIENT WAS FASTINGPERFORMED BY: DoughMain70 [facility] [id number] LDL/HDL Ratio 1.4 {ratio_units} (Normal) Range: 0.0-3.2 Comments: LDL/HDL Ratio Men Women 1/2 Avg.Risk 1.0 1.5 Av g.Risk 3.6 3.2 2X Avg.Risk 6.2 5.0 3X Avg.Risk 8.0 6.1 LDL Cholesterol Calc 94 mg/dL (Normal) Range: 0-99 VLDL Cholesterol Mike 21 mg/dL (Normal) Range: 5-40 HDL Cholesterol 66 mg/dL (Normal) Triglycerides 107 mg/dL (Normal) Range: 0-149 Cholesterol, Total 181 mg/dL (Normal) Range: 100-199 72-Hye-133241:34 CBC, Platelets & Auto Diff Comments: PATIENT WAS FASTINGPERFORMED BY: LabCoOverlook Medical CenterMlqohj8660 [facility] [id number] (46002) Immature Grans (Abs) 0.0 {x10E3/uL} (Normal) Range: [...] 3.77-5.28 WBC 6.9 {x10E3/uL} (Normal) Range: 3.4-10.8 4-Wde-301168:33 HgA1C , Office (30207) HgA1C , Office 5.3 % (Normal) Range: 4.6 - 7.1 5-Bmc-509438:33 Blood Glucose , Office (44321) Blood Glucose , Office 96 (Normal) 9-Tpt-192829:24 CBC With Differential/Platelet Comments: PATIENT NOT FASTINGPERFORMED BY: [facility] Bzflba9074 [facility] [id number] Immature Grans (Abs) 0.0 {x10E3/uL} (Normal) Range: [...] 3.77-5.28 WBC 8.8 {x10E3/uL} (Normal) Range: 3.4-10.8 7-Vgs-925763:24 Comp. Metabolic Panel (14) Comments: PATIENT NOT FASTINGPERFORMED BY: DoughMain70 [facility]PTVAt[facility] Health [facility] [id number] ALT (SGPT) 18 [iU]/L (Normal) Range: 0-32 [...] Glucose, Serum 102 mg/dL (Abnormal) Range: 65-99 7-Imt-049852:24 Lipid Panel With LDL/HDL Comments: PATIENT NOT FASTINGPERFORMED BY: DoughMain70 [facility]Rank[facility] [id number] Ratio LDL/HDL Ratio 2.1 {ratio_units} Range: 0.0-3.2 [...] ng/mL (Abnormal) Comments: PATIENT NOT FASTINGPERFORMED BY: Summitour6370 NPTVAt[facility] [id number] 3:24 Range: 30.0-100.0 Comments: Vitamin D deficiency has been defined by the [facility]The [facility] and an Endocrine Society practice guideline as alevel of serum 25-OH vitamin D less than 20 ng/mL (1,2).The Endocrine Society went on to further define vitamin Dinsufficiency as a level between 21 and 29 ng/mL (2).1. IOM ([place] of Medicine). 2010. Dietary reference intakes for calcium and D. [place]: The National Academies Press.2. Rodolfo MF, Dwight NC, Zeke OWUSU, et al. Evaluation, treatment, and prevention of vitamin D deficiency: an Endocrine Society clinical practice guideline. JCEM. 2010; 96(7):1911-30. 4-Cva-866060:58 MICROALBUMIN: CREATININE RATIO Comments: PATIENT NOT FASTINGPERFORMED BY: Fixational Wyjfkn0410 [facility] HospitalInSampleAtrium Health [facility] [id number] (99554) AND (05658) Microalb/Creat Ratio 14.5 {mg/g_creat} (Normal) Range: 0.0-30.0 Microalbumin, Urine 4.1 ug/mL (Normal) Creatinine, Urine 28.2 mg/dL (Normal) 6-Rrt-538635:18 Miscellaneous Lab Procedure Comments: Comments: 687007 URINE DRUGTest(s) Ordered: 167961 [facility] DR[facility] [address] [place], [id number] [facility] Comments: 154255 6+OXYCODONE-BUND (ng/mL)DRUG RESULT SCREEN CUTOFF____ Amphetamines,Urine Negat [...] Oxydodone and Oxymorphone. ____ TESTING PERFORMED AT [facility]. ORIGINAL REPORT ON FILE IN LAB CONTAINS ADDITIONAL TEST SITE INFORMATION. 0-Zhu-848420:18 Urine Drug Screen (VISTA) Comments: Comments: 170701 URINE DRUGList of Drugs Taken or Suspected? [facility] [address] [place], [address] THC NEGATIVE (Normal) PCP NEGATIVE (Normal) OPIATES [...] TESTING MUST BE ORDERED SEPARATELY. USE TESTMNEMONIC: [facility] 33-Hzr-430050:14 HGB A1C (01794) Comments: PATIENT NOT FASTINGPERFORMED BY: Fixational Qcrlfp6514 [facility] [id number] Hemoglobin A1c 5.6 % (Normal) Range: 4.8-5.6 Comments: . Pre-diabetes: 5.7 - 6.4 Diabetes: >6.4 Glycemic control for adults with diabetes: <7.0 54-Mgs-855710:11 URINE KEE CULTURE-IDENTIFICATN Comments: PATIENT NOT FASTINGPERFORMED BY: Fixational Sobtpf3171 [facility] [id number] Information: SRC:SHAZIA (75159) Antimicrobial MIHEAD (Normal) Comments: S = Susceptible; [...] mL (Abnormal) Urine Final report Culture,Comprehensive (Abnormal) 28-Snf-221991:42 Urinalysis, Office (03278) UA - LEUKOCYTE ESTERASE Moderate (Normal) UA - NITRITE Negative (Normal) URINE UROBILINGN DENISE TIMED Normal mg/dL (Normal) UA - PROTEIN Negative mg/dL (Normal) UA - PH 5 (Abnormal) UA - BLOOD Hemolyzed Small (Normal) UA - SPECIFIC GRAVITY 1.025 (Normal) UA - KETONES Negative mg/dL (Normal) UA - BILIRUBIN Negative (Normal) UA - GLUCOSE Negative (Normal) 40-Eui-632091:58 URINE KEE CULTURE-IDENTIFICATN Comments: PATIENT NOT FASTINGPERFORMED BY: [facility] Nlwbfx0747 [facility] [id number] Information: SRC:SHAZIA (03302) Antimicrobial MIHEAD (Normal) Comments: S = Susceptible; [...] mL (Abnormal) Urine Final report Culture,Comprehensive (Abnormal) 75-Ayc-679189:45 Urinalysis, Office (12650) UA - LEUKOCYTE ESTERASE Small (Normal) UA - NITRITE Negative (Normal) URINE UROBILINGN DENISE TIMED Normal mg/dL (Normal) UA - PROTEIN Negative mg/dL (Normal) UA - PH 6 (Abnormal) UA - BLOOD Hemolyzed Small (Normal) UA - SPECIFIC GRAVITY 1.030 (Abnormal) UA - KETONES Moderate mg/dL (Normal) UA - BILIRUBIN Small (Normal) UA - GLUCOSE Negative (Normal) 99-Pxf-225322:30 Miscellaneous Lab Procedure Comments: Test(s) Ordered: 394756, [facility]INE [facility] [address] [place], [address] [facility] Comments: [id number] 6+OXYCODONE-BUND (ng/mL)DRUG RESULT SCREEN CUTOFF____ Amphetamines Negat [...] Oxydodone and Oxymorphone. [facility] ORIGINAL REPORT ON FILE IN LAB CONTAINS ADDITIONAL TEST SITE INFORMATION. 97-Dyf-468633:30 Urine Drug Screen (VISTA) Comments: List of Drugs Taken or Suspected? [facility] [address] [place], [address] THC POSITIVE (Abnormal) PCP NEGATIVE (Normal) OPIATES [...] TESTING MUST BE ORDERED SEPARATELY. USE TESTMNEMONIC: [facility] :48 TSH (THYROID STIMULATING Comments: PATIENT NOT FASTINGPERFORMED BY: CB [facility] Ofzrky[address]Dublin [place] [id number] HORMONE) (72290) TSH 13.590 {uIU/mL} (Abnormal) Range: 0.450-4.500 :35 TSH (THYROID STIMULATING Comments: PATIENT NOT FASTINGPERFORMED BY: CB [facility] Giujyg45[address]Dublin [place] [id number] HORMONE) (64807) TSH 0.080 {uIU/mL} (Abnormal) Range: 0.450-4.500 :35 XOCMQ-AVBGPZNAGAM-GJIGD (22003) Comments: PATIENT NOT FASTINGPERFORMED BY: CB [facility] Oryozt[address]ublin [place] [id number] AFP, Serum, Tumor Marker 2.7 ng/mL (Normal) Range: 0.0-8.3 Comments: Katerin ECLIA methodology :35 SPEP (49565) Comments: PATIENT NOT FASTINGPERFORMED BY: [facility] [address] [facility] [place] [id number] Information: [id number] Please note: SPRCS (Normal) Comments: Protein electrophoresis scan will follow via computer, mail, orcourier delivery. A/G Ratio 1.1 (Normal) Range: 0.7-1.7 Globulin, Total 3.0 g/dL (Normal) Range: 2.2-3.9 M-Ramana Not Observed g/dL (Normal) Gamma Globulin 1.1 g/dL (Normal) Range: 0.4-1.8 Beta Globulin 1.0 g/dL (Normal) Range: 0.7-1.3 Nrako-8-Ggswggdd 0.6 g/dL (Normal) Range: 0.4-1.0 Wxqfp-3-Qndbgpol 0.3 g/dL (Normal) Range: 0.0-0.4 Albumin 3.3 g/dL (Normal) Range: 2.9-4.4 Protein, Total, Serum 6.3 g/dL (Normal) Range: 6.0-8.5 2-Fby-538090:10 UPEP (23261) Comments: PATIENT NOT FASTINGPERFORMED BY: [address] [id number] Information: [id number] Please note: SPRCS (Normal) Comments: Protein electrophoresis scan will follow via computer, mail, orcourier delivery. M-Ramana, % Not Observed % (Normal) Gamma Globulin, U 17.4 % (Normal) Beta Globulin, U 30.8 % (Normal) Zacxn-0-Ucbwqnhn, U 20.9 % (Normal) Jqxkp-7-Lkfdqqsp, U 7.5 % (Normal) Albumin, U 23.4 % (Normal) Protein,Total,Urine 4.9 mg/dL (Normal) 6-Rzn-950513:08 urine immunofixation (29149) Comments: PATIENT NOT FASTINGPERFORMED BY: [address] [id number] Information: SRC:UR [id number] MIGDALIA Interpretation:U UPEIP (Normal) Comments: No monoclonality detected. 6-Gim-265884:50 Urinalysis, Office (61016) UA - LEUKOCYTE ESTERASE Negative (Normal) UA - NITRITE Negative (Normal) URINE UROBILINGN DENISE TIMED Normal mg/dL (Normal) UA - PROTEIN Negative mg/dL (Normal) UA - PH 6.0 (Normal) Comments: 5.5 UA - BLOOD Negative (Normal) UA - SPECIFIC GRAVITY 1.030 (Abnormal) UA - KETONES Small mg/dL (Normal) UA - BILIRUBIN Negative (Normal) UA - GLUCOSE Negative (Normal) 20-Bie-454184:30 ANTINUCLEAR ANTIBODIES DIRECT Comments: [facility] (refer to report for specific site)refer to report for address and phone number ELIJAH-DIRECT Negative (Normal) Comments: Performed at: [address] [id number] Director: Ren Mcgovern PhD, Phone: [phone] 84-Utm-757964:30 CBC W/Diff, Automated Comments: [facility] [address] [place], [address] Absolute Lymph 2.05 {X10_3/ul} (Normal) [...] 4.2-5.4 WBC 7.9 K/mm3 (Normal) Range: 4.4-11.0 77-Zpo-067499:30 Comprehensive Metabolic Profil Comments: Serial Specimen #1, #2 or #3? [facility] [address] [place], [address] GAP 6 (Normal) Range: 5-15 [...] 7-18 GLU 101 mg/dL (Normal) Range: 70-110 :30 CRP Comments: Serial Specimen #1, #2 or #3? 1[facility] [address] [place], [place], [id number] C-REACTIVE PROT < 2.90 mg/L (Normal) Range: 0.0-3.0 Comments: C-Reactive Protein (CRP) provides useful information for thediagnosis, therapy and monitoring of inflammatory processesand associated diseases. For the evaluation of Relative Riskfor Cardiovascular Dise ase, a High Sensitivity CRP (HSCRP)should be ordered. :30 Erythrocyte Sed Rate Comments: [facility] [address] [place], [address] SED RATE 20 mm/h (Normal) Range: 0-30 10-Rbw-032725:30 Immunofixation Urine Comments: [facility] (refer to report for specific site)refer to report for address and phone number MIGDALIA Urine Test not performed (Normal) Comments: Quantity was not sufficient for analysis.CONTACTED MAHAD AT YOUR FACILITY 11-15-1513-Nov-201554-Jgz-567491:30 Immunofixation, Serum Comments: [facility] (refer to report for specific site)refer to report for address and phone number MIGDALIA RESULT,S Comment (Normal) Comments: No monoclonality detected. IMMUNOGL M 137 mg/dL (Normal) Range: 26-217 IMMUNO A 225 mg/dL (Normal) Range: 87-352 IMMUNO G 1077 mg/dL (Normal) Range: 700-1600 17-Lih-574592:30 [place] [employer] Chains Comments: [facility] (refer to report for specific site)refer to report for address and phone number KAPPA/LAMBDA % 1.03 (Normal) Range: 0.26-1.65 FR LAMBDA LT CH 17.65 mg/L (Normal) Range: 5.71-26.30 FR KAPPA LT CHN 18.21 mg/L (Normal) Range: 3.30-19.40 :30 LDH 201 U/L (Normal) Comments: Serial Specimen #1, #2 or #3? 1[facility] [address] [facility] [place], [place], [id number] Range: 84-246 72-Xry-401901:30 Microalb:Creat Ratio,Random UR Comments: [facility] [address] [facility]. [place], [place], [id number] MALB:CREAT 7.0 {mg/g_CRE} (Normal) MICROALBUMIN,UR 10.3 mg/L (Normal) UR CREAT 148.00 mg/dL (Normal) :30 Protein Electro.Ur-Random Comments: [facility] (refer to report for specific site)refer to report for address and phone number NOTE Comment (Normal) Comments: Protein electrophoresis scan will follow via computer,mail, or roadway designer delivery. M-SPIKE,U Test not performed (Normal) GAMMA GLOB,U Test not performed (Normal) Comments: Test not performed BETA GLOB,U Test not performed (Normal) Comments: Test not performed KSMAN-9-DWMW,U Test not performed (Normal) Comments: Test not performed UIXGP-6-NVVA,U Test not performed (Normal) Comments: Test not performed ALBUMIN,UR Test not performed (Normal) Comments: Test not performed PROTEIN,UR Test not performed mg/dL Comments: Quantity was not sufficient for analysis.CONTACTED MAHAD AT YOUR FACILITY 11-15-15 (Normal) 70-Ibr-220978:30 Urinalysis, Routine (Dipstick) Comments: How was Urine Obtained? CLE[facility] [address] [place] [address], [id number] LEUK ESTERASE 25 /ul (Abnormal) OCCULT BLOOD-UR 25 /ul (Abnormal) NITRITE UR Negative (Normal) UROBILI Normal mg/dL (Normal) PROT DIPSTX Negative mg/dL (Normal) pH UR 5.0 (Normal) Range: 5.0 - 8.0 SP.GR. DIPSTX 1.025 (Normal) Range: 1.002-1.030 KETONE UR Negative mg/dL (Normal) BILIRUBIN URINE Negative mg/dL (Normal) GLUCOSE, UR Normal mg/dL (Normal) CLARITY Clear (Normal) COLOR Yellow (Normal) 11-Fpg-957931:00 Cytology, Body Fluid / CSF Comments: Specimen Source: [address], [id number] CYTOLOGY,BF/CSF SEE PATHOLOGY REPORT Comments: Specimen submitted to Anatomical Pathology Department fortesting. (Normal) 75-Acm-499046:00 CYTOSPIN ON FLUID See Note (Normal) Comments: [address], [address] Comments: Patient: SADIA LONGO : 1950 (64/F) Acct Num: [id number] Phys: Veronica GARZA,Yung Unit Num: [id number] Loc: LABSPEC Specimen: [id number] Received: 08/31/15 - 1314 Spec Type: CYSPIN FL TISSUES TISSUES: CULTURE RESULTS No results available. CYTOLOGY GROSS Received is 10 ml of clear gold fluid labeled with the patient's name and and designat ed per the requisition as urine. Submitted for cytology preparation. / 08/31/15 TC:5 CPT:81673 CYTOLOGY STUDY Slides are reviewed. The specimen consists of benign squamous cells, benign urothelial cells and neutrophils. DIAGNOSIS CYTOLOGY Urine for cytology (cytospin): Negative for malignant cells. SJ:meliza 09/01/15 HEADER OPERATION: Not noted PRE-OP DIAGNOSIS: Hematu johnnie TISSUE SUBMITTED: Urine cytology Signed Samy Collinsin 09/01/15 <signature on file> 50-Keh-174792:04 Urinalysis, Office (30902) UA - LEUKOCYTE ESTERASE Negative (Normal) UA - NITRITE Negative (Normal) URINE UROBILINGN DENISE TIMED Normal mg/dL (Normal) UA - PROTEIN Negative mg/dL (Normal) UA - PH 5 (Abnormal) UA - BLOOD Hemolyzed Trace (Normal) UA - SPECIFIC GRAVITY 1.030 (Abnormal) UA - KETONES Negative mg/dL (Normal) UA - BILIRUBIN Negative (Normal) UA - GLUCOSE Negative (Normal) 91-Yet-621931:52 URINE KEE CULTURE-IDENTIFICATN Comments: PATIENT NOT FASTINGPERFORMED BY: [facility] Dibzxr4243 [facility] [id number] Information: [id number] (24748) Antimicrobial MIHEAD (Normal) Comments: S = Susceptible; [...] pain syndrome) Planned Observations T4, FREE (THYROXINE) (90638)Indication: Abnormal thyroid function test On: :59 Request T3, FREE (TRIDOTHYRONINE) (20853)Indication: Abnormal thyroid function test On: :59 Request TSH (THYROID STIMULATING HORMONE) (34765)Indication: Abnormal thyroid function test On: :59 Request HGB A1C (89517)Indication: Paresthesia of arm On: :04 Request HEPATITIS C ANTIBODY (82040)Indication: Paresthesia of arm On: :04 Request ELIJAH (ANTINUCLEAR ANTIBODY) (51553)Indication: Paresthesia of arm On: :04 Request Serum Protein Electrophoresis (SPEP) (81859)Indication: Paresthesia of arm On: :04 Request VITAMIN B-12 (CYANOCOBALAMIN) (30144)Indication: Paresthesia of arm On: :04 Request METABOLIC PANEL, COMPREHENSIVE (68790)Indication: Paresthesia of arm On: :04 Request CBC & PLATELETS (AUTO) (06721)Indication: Paresthesia of arm On: : Request T4, FREE (THYROXINE) (73763)Indication: Acquired hypothyroidism On: :21 Request TSH (THYROID STIMULATING HORMONE) (57095)Indication: Acquired hypothyroidism On: :21 Request T3, FREE (TRIDOTHYRONINE) (48244)Indication: Acquired hypothyroidism On: :21 Request Blood Glucose , Office (64646)Indication: Diabetes mellitus type II, controlled On: 33-Caj-960797:33 Request Lipid Panel (78022)Indication: High triglycerides On: :10 Request CALCIFEDIOL (05502)Indication: Osteopenia On: :51 Request CBC, Platelets & Auto Diff (28553)Indication: Hypertension On: 49 Request Lipid Panel (41059)Indication: Hypertension On: Request Metabolic Panel, Comprehensive (55544)Indication: Hypertension On: Request Urinalysis, Office (89242)Indication: Hypertension On: Request CALCIFEDIOL (49771)Indication: Vitamin D deficiency On: :55 Request TSH (THYROID STIMULATING HORMONE) (20525)Indication: Acquired hypothyroidism On: :51 Request CBC, Platelets & Auto Diff (71358)Indication: Diabetes mellitus type II, controlled On: Request Metabolic Panel, Comprehensive (41492)Indication: Diabetes mellitus type II, controlled On: : Request Metabolic Panel, Comprehensive (81785)Indication: Fatty liver On: :24 Request WSFXB-OVFBELYMAAW-BNRSS (20523)Indication: Fatty liver On: :23 Request serum free light chains (99622)Indication: Swelling of both lower extremities On: 53 Request UPEP (37060)Indication: Swelling of both lower extremities On: 53 Request urine immunofixation (84563)Indication: Swelling of both lower extremities On: 53 Request serum immunofixation (87468)Indication: Swelling of both lower extremities On: 53 Request URINALYSIS (83462)Indication: Swelling of both lower extremities On: 53 Request MICROALBUMIN: CREATININE RATIO (69528) AND (62722)Indication: Swelling of both lower extremities On: 53 Request BLOOD SMEAR, W/O MANUAL DIFF WBC (52372)Indication: Lymphadenopathy On: 45 Request LDH (LD) (LACTATE DEHYDROGENASE) (47868)Indication: Lymphadenopathy On: Request ELIJAH (ANTINUCLEAR ANTIBODY) (11395)Indication: Lymphadenopathy On: Request C-REACTIVE PROTEIN (35188)Indication: Lymphadenopathy On: 50-Jty-377440:42 Request SED RATE ERYTHROCYTE (80362)Indication: Lymphadenopathy On: 70-Zdw-888686:42 Request METABOLIC PANEL, COMPREHENSIVE (25775)Indication: Lymphadenopathy On: 93-Nbx-617714:42 Request CBC, Platelets & Auto Diff (58984)Indication: Gingivitis On: 78-Vmh-593916:37 Request METABOLIC PANEL, COMPREHENSIVE (37967)Indication: High triglycerides On: 06-Ibv-300306:55 Request LIPID PANEL (17448)Indication: High triglycerides On: 39-Wgl-864541:55 Request TSH (68698)Indication: Acquired hypothyroidism On: 64-Qxw-305549:54 Request VITAMIN B-12 (CYANOCOBALAMIN) (60398)Indication: Memory change On: 3-Tkv-524221:54 Request TSH (65182)Indication: Acquired hypothyroidism On: 7-Jzl-671541:54 Request METABOLIC PANEL, COMPREHENSIVE (33876)Indication: Diabetes mellitus type II, controlled On: 4-Wou-407950:53 Request CBC with auto diff (96190)Indication: Diabetes mellitus type II, controlled On: 8-Epe-658733:53 Request LIPID PANEL (80463)Indication: Diabetes mellitus type II, controlled On: 7-Stx-709374:53 Request MICROALBUMIN: CREATININE RATIO (84139) AND (28687)Indication: Diabetes mellitus type II, controlled On: 6-Nkn-577659:53 Request SED RATE ERYTHROCYTE (17854)Indication: Fatigue On: 69-Suw-038595:51 Request C-REACTIVE PROTEIN (46325)Indication: Fatigue On: 14-Ras-778876:51 Request FERRITIN (82970)Indication: Fatigue On: 56-Saz-212045:51 Request IRON (81638)Indication: Fatigue On: 21-Ftb-179683:51 Request ALDOLASE (01716)Indication: Fibromyalgia (Renamed from Diffuse myofascial pain syndrome) On: 07-Vyl-474534:51 Request Creatine Kinase Total (36360)Indication: Fibromyalgia (Renamed from Diffuse myofascial pain syndrome) On: 94-Nuq-015428:51 Request SPEP (12621)Indication: Fatigue On: 81-Hti-241117:51 Request UPEP (73939)Indication: Fatigue On: 05-Vad-074433:51 Request FOLIC ACID SERUM (89358)Indication: Fatigue On: :51 Request VITAMIN B-12 (CYANOCOBALAMIN) (99099)Indication: Fatigue On: :51 Request URINALYSIS, W/ MICRO (30276)Indication: Fatigue On: :50 Request METABOLIC PANEL, COMPREHENSIVE (95238)Indication: Fatigue On: :50 Request Planned Procedures Ultrasound - RenalBy: Oscar ANGELES, On: 01-Mar-2018 Intent PalomaJasper Salguero CNP [facility] SCREENING DIGITAL TOMOSYNTHESIS OF On: 31-Jul-2017 Intent BREAST (05000)By: Oscar ANGELES PalomaJasper Salguero CNP [place] ELECTROCARDIOGRAM, COMPLETE (ECG) On: 02-May-2017 Intent (02241)By: Oscar ANGELES PalomaJasper Salguero CNP [place] ELECTROCARDIOGRAM, COMPLETE (ECG) On: 23-Mar-2017 Intent (11672)By: Oscar ANGELES Anjelica Hutchinson Gagandeepsatish KARTHIK [place] DEXA SCAN AXIAL SKELETON (15212)By: On: 23-Jan-2017 Intent Oscar ANGELES Anjelica Hutchinson Sydneefer KARTHIK [place] Ear Irrigation (67606)By: Oscar On: 17-Oct-2016 Intent KARTHIK Anjelica Hutchinson Sydneefer KARTHIK [place] Wax CurettesBy: Oscar ANGELES [facility] On: 17-Oct-2016 Intent Oscar ANGELES [facility] MAMMOGRAM BREAST BILATERAL SCREENING On: 14-Jul-2016 Intent DIGITAL (28460)By: Oscar ANGELES Anjelica Hutchinson Sydneefer KARTHIK [place] Ultrasound - LiverBy: Oscar ANGELES, On: 12-Nov-2015 Intent Anjelica Salguero KARTHIK [place] CT - Chest (Without Contrast)By: On: 08-Sep-2015 Intent Arabella Parish DO, PROLIA (J0897)By: Jem On: 24-Aug-2015 Arabella Tilley DO Comments: Lot:[id number]:12/08Dose:60mlRoute:sub qSite:l armGiven By:SARIKA signed CHEST CT WITHOUT CONTRAST (03081)By: On: 06-Jul-2015 Intent Arabella Parish DO Comments: HIGH RESOLUTION CT - Chest (Without Contrast)By: On: 29-Jun-2015 Intent Arabella Parish DO Comments: HIGH RESOLUTION Radiology - ChestBy: Arabella Parish DO On: 07-Jun-2015 Intent A Comments: PA&L CT - Abdomen & Pelvis (Without On: 04-Jun-2015 Intent Contrast)By: Arabella Parish DO Comments: stat call wet read MAMMOGRAM, SCREENING, BOTH BREAST On: 04-Jun-2015 Intent (90849)By: Arabella Parish DO MAMMOGRAM, SCREENING, BOTH BREAST On: 26-Feb-2015 Intent (62557)By: Arabella Parish DO Flu Vaccine (Quadrivalent) 67538Rt: On: 26-Feb-2015 Intent Arabella Parish DO ADMINISTRATION OF INFLUENZA VIRUS On: 26-Feb-2015 Intent VACCINE (G0008)By: Arabella Parish DO Comments: Lot #[id number]-L dltd, IMDose prefilled syringegiven by:CODY Summers and [...] 31.0-31.9,adult Fatigue : DISCONTINUED - LIPID PANEL (67933) Indication: Fatigue Nonsmoker : How to access [...] liver : DISCONTINUED - METABOLIC PANEL, COMPREHENSIVE (86576) Indication: Fatty liver Fatty liver : DISCONTINUED - KJRBX-LPLYAFTSQVN-NJIKM (75985) Indication: Fatty liver Depression : DISCONTINUED - CALCIFEDIOL (36303) Indication: Depression Nonsmoker : How to access [...] myofascial pain syndrome) Encounters Office Visit On: 01-Mar-2018 10:48 Encounter Reason: [...] (). Note for Discuss procedure results: Saw Adjuster And Inspector Dr. Skyler Odonnell at [facility] now needs casino accountant, End: 01-May-2017 15:42 [ADDITIONAL REASON] Follow up [...] complaints (pre-cancerous areas on face,. 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
--- OUTSIDE RECORDS SUMMARY | 2018-05-15 06:22 | XMS RPT_ITS | Continuity of Care Document ---
:1950 Author Organization [facility] Address [address] [facility] [address] [place] [address] Phone Care Team Providers Name Role Phone Sydneefer KARTHIK, Paloma Unavailable Mason Garnett Unavailable Milton GARZA, Neftaly Hutchinson Unavailable Garth GARZA, Yaniv King Unavailable Khushbu Cevallos Unavailable Unavailable Slarb PECAN GATHERER, Dora Unavailable Unavailable Long PECAN GATHERER, Bina Hernandez Unavailable Unavailable Tiesha Avina Unavailable Unavailable Unavailable Unavailable Problems Name Dates Details Abdominal pain, acute, left lower quadrant (Renamed from Acute abdominal pain in left lower quadrant) (R10.32, 789.04) Status: Active Abnormal CXR (R93.89, 793.2) Status: Active Abnormal TSH (R79.89, 790.6) Comments: was 0.08 in Nov now 18.99 labs done at [facility] will repeat with our lab today andnow seeing Radhagudelia most recent tsh undectable per pt.she is asking for another specialist or myself to follow Status: Active Acquired hypothyroidism (E03.9, 244.9) Comments: Seeing Dr. Lobato in [place] on tircent they monitor Status: Active Allergic [...] stopped seeing Bar[facility] seeing Dany in [place] Status: Active Encounter for gynecological examination without [...] treated initially by endocrine, [facility], ekg todaytakes [...] Relief 50 MCG/ACT Nasal Suspension 2 (two) Jasper Jasper daily for 0 days Quantity: 1 {Jasper} Refills: 0 Ordered:05-Feb-2018 Khushbu Cevallos Start : 02-Nov-2017 Active Metoprolol Succinate ER 50 MG Oral Tablet Extended Release 24 Hour 1 (one) Tablet daily for 0 days Quantity: 30 {Tablet} Refills: 0 Ordered:02-Nov-2017 Sydneelisasatish ANGELES, Anjelica LEDYemilysatish ANGELES Anjelica Hutchinson Start : 02-Nov-2017 Active Comments:Endo Morphine Sulfate 15 MG Oral Tablet 1 qd (15 MG) Active Tirosint 100 MCG Oral Capsule 1 one on m,w,f adn two all other days (100 MCG) Active TRAZODONE HCL, 300MG (Oral Tablet) 1 (one) Tablet Tablet q hs for 30 days Quantity: 30 {Tablet} Refills: 0 Ordered:11-Aug-2014 Jem Arabelal Covarrubias Start : 07-Jul-2014 Active VITAMIN B12, 100MCG (Oral Tablet) 1 tab daily (100 MCG) Active VITAMIN B-COMPLEX (Oral Tablet) 1 tab daily Active Vitamin D3 Super Strength 2000 UNIT Oral Capsule 1 (one) Capsule daily for 0 days Quantity: 30 {Capsule} Refills: 0 Ordered:17-Oct-2016 Sydneefer KARTHIK, Anjelica Moody KARTHIK Anjelica Hutchinson Start : 17-Oct-2016 Active Cheratussin AC 100-10 MG/5ML Oral Syrup 4 Milliliter qhs prn cough for 0 days Quantity: 120 {Milliliter} Refills: 0 Ordered:31-Jul-2017 Bina Liriano LPN L Start : 01-May-2017 End : 31-Jul-2017 Inactive Doxycycline Hyclate 100 MG Oral Tablet Delayed Release 1 (one) Tablet DR bid for 10 days Quantity: 20 {Tablet} Refills: 0 Ordered:23-Nov-2015 Oscar KARTHIK, Anjelica Moody KARTHIK, Anjelica Hutchinson Start : 23-Nov-2015 End : 03-Dec-2015 Inactive Embeda 20-0.8 MG Oral Capsule Extended Release 1 (one) Capsule daily per Dr Basali for 30 days Quantity: 30 {Capsule} Refills: 0 Ordered:31-Jul-2017 Long PECAN GATHERER, Bina L Start : 01-May-2017 End : [...] Quantity: 30 {Capsule} Refills: 0 Ordered:05-Feb-2018 Oscar ANGELES, Anjelica Moody CNP, Anjelica Hutchinson Start : 02-Nov-2017 End : 05-Feb-2018 Inactive VESICARE, 10MG (Oral Tablet) 1 (one) Tablet qd for 30 days Quantity: 30 {Tablet} Refills: 0 Ordered:12-Nov-2015 Arabella Parish DO A Start : 08-Sep-2015 End : 08-Oct-2015 Inactive Zofran ODT 4 MG Oral Tablet Disintegrating 1 (one) Tablet Tablet bid with antibiotic prn nausea for 0 days Quantity: 20 {Tablet} Refills: 0 Ordered:31-Jul-2017 Long PECAN GATHERERBina Start : 17-Oct-2016 End : 31-Jul-2017 Inactive HUMIRA, 40MG/0.8ML (Subcutaneous Kit) 1 (one) Kit once monthly for 30 days Quantity: 30 Kit Refills: 0 Ordered:11-Aug-2014 Estrella Snell Start : 07-Jul-2014 End : 11-Aug-2014 Discontinued HYDROmorphone HCl 2 MG Oral Tablet 1 (one) Tablet Tablet tid for 30 days Quantity: 90 {Tablet} Refills: 0 Ordered:14-Jul-2016 Slarb NORMADora Start : 25-Sep-2014 End : 14-Jul-2016 Discontinued [...] pain (R10.9, 789.00) Status: Inactive as of 3-Oct-2017 Adrenal insufficiency (E27.40, 255.41) Status: Inactive as [...] Result: Comments: See Note; NOTES: [facility] Imaging Services [address] [place] [address] SCREENING MAMM (CAD), BILAT MR#: [id number] Acct: [id number] Name: SADIA LONGO Rep #: [id number] : 1950 F 66 From: Xu Davila MD PCP: Anjelica Salguero NP Status: REG CLI Study: SCREENING MAMM (CAD), BILAT Date of Exam: 08/22/17 Exam# [id number] Ordering Dr: Anjelica Salguero MAMMO GRAPHY - [...] biopsy of a clinically suspicious abnorm ality. [id number] Electronically Signed: Xu Davila MD at 9:48 EDT Tel [phone], Service support , CC: Anjelica Salguero NP Human Resources Temp: Signed 15-Jun-2017 Echocardiogram Complete Result: Comments: See Note; NOTES: [facility] Cardiovascular Services [address] [place] [address] Echo Complete 06/15/17 0933 MR#: [id number] Acct: [id number] Name: SADIA LONGO Rep #: [id number] : 1950 66 From: Yaniv Liang MD Attending Dr: Yaniv Liang MD Status: REG CLI Ordering Dr: Yaniv Liang MD Date: 06/15/17 Location: [facility] Sex: F C Admitted: Reason Fo [...] Date Yaniv Liang MD CC: Anjelica Salguero HOTEL NIGHT AUDITOR; Yaniv mera MD Date Dictated: 06/15/1733 Date Transcribed: 06/15/171642 Human Resources Temp: Signed 15-Jun-2017 Stress Report Result: Comments: See Note; NOTES: [facility] Cardiovascular Services [address] [place] [address] MR#: [id number] Acct: [id number] Name: SADIA LONGO Rep #: [id number] : [birth year] 66 From: Yaniv Liang MD [...] of 92%. This note was generated with Coziation software. It may contain incorrect words, spelling, and punctuation that were not noted in checking the note before signing. 8 1019 <Electronically signed by Yaniv Liang MD> Date Yaniv Liang MD CC: Anjelica Salguero HOTEL NIGHT AUDITOR; Yaniv Liang MD Date Dictated: 06/15/17 1014 Date Transcribed: 06/15/17 1014 Human Resources Temp: PM Signed 13-Jun-2017 Lumbar Spine 2 or 3 Views Result: Comments: See Note; NOTES: [facility] Imaging Services [address] [place] [address] Lumbar Spine 2 or 3 Views MR#: [id number] Acct: [id number] Name: SADIA LONGO Rep #: [id number] : 1950 F 66 From: Robert Saba DO PCP: Anjelica Salguero NP Status: REG CLI Study: Lumbar Spine 2 or 3 Views Date of Exam: 06/13/17 Exam# [id number] Ordering Dr: Yung Alvarez MD STUDY: X-RAY [...] CC: Anjelica Salguero NP; Yung Alvarez MD Human Resources Temp: Signed 31-May-2017 Cardiology Visit Report Result: Comments: See Note; NOTES: [facility] [address] [place] [address] OFFICE VISIT Date of Service: 05/31/17 MR#: [id number] Acct: [id number] Name: SADIA LONGO Rep #: [id number] : 1950 Provider: Yaniv Liang MD Age/Sex: 66/F Location: [facility] Status: Signed HPI HPI Details: SADIA LONGO, is a 66 F who presents to the office today for for outpatien t cardiovascular consultation based on concerns of shortness of breath/dyspnea, chest discomfort, and fatigue superimposed upon a reported history of underlying CAD. She states she has previously been e valuated by Dr. Murray Patterson of cardiology in the [place], [place] area. She notes in the past [...] study performed in June 2014 via the [facility] system. According to the report s available [...] of non-cardiovascular issues. Based upon notes from [facility] from 06/16/2012 it appears at that [...] 60 mg/mL subcutaneous syringe 60 mg SC [id number] 05/30/17 [Hi story Confirmed 05/31/17] epinephrine 0.3 [...] mg PO QDAY 05/31/17 [History Confirmed ] [facility] Medical History Palpitations (Acute) SOB (shortness [...] to this approach. Follow Up 6 Weeks (PA/HOTEL NIGHT AUDITOR) Coding Level of Care Code Off vis,new,level [...] Yaniv Liang MD> Date Yaniv Liang MD [facility] Signature: Date (if applicable) CC: Anjelica Salguero HOTEL NIGHT AUDITOR 31-May-2017 12 Lead EKG performed by [facility] Result: Comments: See Note; NOTES: [facility] [address] [place] [address] 12 Lead EKG performed by [facility] 05/31/171412 MR#: [id number] Acct: [id number] Name: SADIA LONGO Rep #: [id number] : 1950 66 From: Yaniv Liang MD Attending Dr: Yaniv Liang MD Status: [facility] Ordering Dr: Yaniv Liang MD Date: 05/31/17 Location: [facility] Sex: F C Admitted: [facility]/12 Lead EKG performed by [facility] ECG Report Interpretation Sinus Rhythm Poor R wave progressionElectronically signed on 05/31/2017 at 16:10 by Esvin Liang 05/31/17 1612 Date Yaniv Liang MD CC: Anjelica Salguero HOTEL NIGHT AUDITOR Date Dictated: 05/31/171412 Date Transcribed: 05/31/171412 Human Resources Temp: PM Signed 29-Mar-2017 Emergency Department Summary Result: Comments: See Note; NOTES: [facility] Medical Records Department [address] [place] [address] Emergency Department Summary MR#: [id number] Acct: [id number] Name: RAMAKRISHNA LONGO Rep #: [id number] : 1950 66 From: Liam Whalen MD PCP: Oscar STANLEY Anjelica Status: REG ER DATE OF SERVICE: 03/23/2017 [...] COURSE: The patient w as treated with [place], placed in a walking boot. TREATMENT PLAN: The patient will be discharged with instructions to follow up with b2b outside sales representative in 1 week if not improving. DISPOSITION: Home, improved, stable condition. IMPRESSION: Left foot sprain. Liam Whalen MD C C: Anjelica Salguero T: NTS JOB: [id number] 03/29/17 0650 <Electronically signed by Liam Whalen MD> Date _ Liam Whalen MD Cosigner Signature (If Indicated): Date CC: Anjelica Salguero NP Date Dictated: 03/23/172102 D ate Transcribed: 03/23/172102 Human Resources Temp: Signed 13-Feb-2017 Dexa Bone Density Study (HP) Result: Comments: See Note; NOTES: [facility] Imaging Services [address] [address] Dexa Bone Density Study (HP) MR#: [id number] Acct: [id number] Name: SADIA LONGO Rep #: [id number] : 1950 F 66 From: Xu Davila MD PCP: Anjelica Salguero Status: REG CLI Study: Dexa Bone Density Study (HP) Date of Exam: 02/13/17 Exam# [id number] Ordering Dr: Anjelica Salguero STUDY: DUAL ENERGY [...] Xu Davila MD at 14:52 EDT Tel [phone], Service support , CC: Anjelica Salguero Human Resources Temp: Signed 26-Jan-2017 Spine Lumbar (Routine) Result: Comments: See Note; NOTES: [facility] Imaging Services [address] [place] [address] Spine Lumbar (Routine) MR#: [id number] Acct: [id number] Name: SADIA LONGO Dennis Rep #: [id number] : 1950 F 66 From: Mason Gilliam MD PCP: Anjelica Salguero Status: REG CLI Study: Spine Lumbar (Routine) Date of Exam: 01/26/17 Exam# [id number] Ordering Dr: Yung Alvarez MD STUDY: MRI [...] , CC: Anjelica Salguero; Yung Alvarez MD Human Resources Temp: Signed 02-Mar-2016 Cerv Spine 2 or 3 Views Result: Comments: See Note; NOTES: [facility] Imaging Services [address] [place] [address] Verdana 4d Cerv Spine 2 or 3 Views MR#: [id number] Acct: [id number] Name: SADIA LONGO Rep #: [id number] : 1950 F 65 From: Marshall Landaverde DO PCP: Anjelica Salguero Status: REG CLI Study: Cerv Spine 2 or 3 Views Date of Exam: 03/02/16 Exam# [id number] Ordering Dr: Yung Alvarez MD STUDY : [...] Marshall Landaverde DO at 23:01 EST Tel [phone], Service support [phone], CC: Anjelica Salguero; Yung Alvarez MD Human Resources Temp: Signed 02-Mar-2016 Lumbar Spine 2 or 3 Views Result: Comments: See Note; NOTES: [facility] Imaging Services [address] [place] [address] Verdana 4d Lumbar Spine 2 or 3 Views MR#: [id number] Acct: [id number] Name: SADIA LONGO Rep #: [id number] : 1950 F 65 From: Marshall Landaverde DO PCP: Anjelica Salguero Status: REG CLI Study: Lumbar Spine 2 or 3 Views Date of Exam: 03/02/16 Exam# [id number] Ordering Dr: Yung Alvarez MD S TUDY: [...] tissue structures are unremarkable. 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 Electronically Signed: Marshall Landaverde DO at 23:10 EST Tel [phone], Service support [phone], CC: Anjelica Salguero; Yung Alvarez MD Human Resources Temp: Signed 16-Nov-2015 Liver Result: Comments: See Note; NOTES: [facility] Imaging Services [address] [place] [address] Verdana 4d Liver MR#: [id number] Acct: [id number] Name: SADIA LONGO Rep # : [id number] : 1950 F 64 From: Apryl Melendez MD PCP: Arabella Parish DO Status: REG CLI Study: Liver Date of Exam: 11/16/15 Exam# [id number] Ordering Dr: Anjelica Salguero STUDY: ABDOMINAL ULTRASOU [...] There is no demonstrated mass lesion. Gallbladder: e patient is status post cholecystectomy. Common [...] hydronephrosis. CC: Anjelica Salguero; Arabella Parish DO Human Resources Temp: Signed 16-Nov-2015 Liver Result: Comments: See Note; NOTES: [facility] Imaging Services [address] [address] Verdana 4d Liver MR#: [id number] Acct: [id number] Name: SADIA LONGO Rep # : [id number] : 1950 F 64 From: Apryl Melendez MD PCP: Arabella Parish DO Status: REG CLI Study: Liver Date of Exam: 11/16/15 Exam# [id number] Ordering Dr: Anjelica Salguero STUDY: ABDOMINAL ULTRASOU [...] at 8:20 EDT Tel , Service support [phone], CC: Anjelica Salguero; Arabella Parish DO Human Resources Temp: Signed 03-Sep-2015 Kidney and Bladder Result: Comments: See Note; NOTES: [facility] Imaging Services [address] [place] [address] Verdana 4d Kidney and Bladder MR#: [id number] Acct: [id number] Name: LISA LONGO C Rep #: [id number] : 1950 F 64 From: Bonilla Belle DO PCP: Arabella Parish DO Status: REG CLI Study: Kidney and Bladder Date of Exam: 09/03/15 Exam# [id number] Ordering Dr: Cosmo Martin MD STUDY: RENAL [...] Bonilla Belle DO at 23:38 EDT Tel [phone], Service support [phone], CC: Arabella Parish DO; Cosmo Martin MD Human Resources Temp: Signed 23-Jul-2015 Bilat Scrn Digital AND CAD Result: Comments: See Note; NOTES: [facility] Imaging Services [address] [place] [address] Verdana 4d Bilat Scrn Digital AND CAD MR#: [id number] Acct: [id number] Name: SADIA LONGO Rep #: [id number] : 1950 F 64 From: Xu Davila MD PCP: Arabella Parish DO Status: REG CLI Study: Bilat Scrn Digital AND CAD Date of Exam: 07/23/15 Exam# [id number] Boogie phan Dr: Arabella Parish DO MAMMOGRAPHY [...] bio psy of a clinically suspicious abnormality. [id number] Electronically Signed: Xu Davila MD at 13:17 EDT Tel [phone], Service support [phone], CC: Arabella Parish DO Human Resources Temp: Signed 08-Jun-2015 Chest PA and Lateral Result: Comments: See Note; NOTES: [facility] Imaging Services [address] [place] [address] Verdana 4d Chest PA and Lateral MR#: [id number] Acct: [id number] Name: SADIA LONGO Rep #: [id number] : 1950 F 64 From: Brock Wright MD PCP: Arabella Parish DO Status: REG CLI Study: Chest PA and Lateral Date of Exam: 06/08/15 Exam# [id number] Ordering Dr: Rasta Parish DO STUDY: X-RAY [...] FACR at 20:39 EST , Service support [phone], RAD/Chest PA and Lateral IMPRESSION: Mild interstitial changes in the lower lobes. No acute infiltrates or pleural effusions noted Electronically Signed: Brock Wright MD, FACR at 20:39 ES T , Service support [phone], CC: Arabella Parish DO Human Resources Temp: Signed 04-Jun-2015 Abdomen/Pelvis without Cont Result: Comments: See Note; NOTES: [facility] Imaging Services [address] [place] [address] Verdana 4d Abdomen/Pelvis without Cont MR#: [id number] Acct: [id number] Name: SADIA LONGO Rep #: [id number] : 1950 F 64 From: Bonilla Belle DO PCP: Arabella Parish DO Status: REG CLI Study: Abdomen/Pelvis without Cont Date of Exam: 06/04/15 Exam# [id number] Ordering Dr: Arabella Gaming DO STUDY: CT [...] Bonilla Belle DO at 19:11 EST Tel [phone], Service support , CC: Arabella Parish DO Human Resources Temp: Signed 27-Jul-2014 Sleep Study Report Result: Comments: See Note; NOTES: [facility] [address] [place] [address] Unattended Sleep Study MR#: [id number] Acct: [id number] Name: SADIA LONGO Dennis Chou #: [id number] : 1950 63 From: Mason Garnett MD PCP: Arabella Parish DO Status: REG CLI Ordering Dr.: Mason Garnett MD Date: 07/21/14 Sex: F C APNEA LINK PORTABLE POLYSOMNOGRAM: REFERRI PHYSICIAN: Dr. Mason Garnett. SLEEP HISTORY: The patient is a 63-year-old female with a calculated body mass index of 28.6 and an [place] Sleepiness Scale score of 20/24. The patient [...] version). Please note that a reference to [facility] AHI in this report is consistent [...] subjective complaints, and elevated score on the [place] Sleepiness Scale are not explained by the [...] 1.75 m2 Results Date Description Value Details :11 Urinalysis, Office (98682) UA - LEUKOCYTE ESTERASE Trace (Normal) UA - NITRITE Negative (Normal) URINE UROBILINGN DENISE TIMED Normal mg/dL (Normal) UA - PROTEIN Negative mg/dL (Normal) UA - PH 6.0 (Normal) UA - BLOOD Hemolyzed Trace (Normal) UA - SPECIFIC GRAVITY 1.030 (Abnormal) UA - KETONES Negative mg/dL (Normal) UA - BILIRUBIN Negative (Normal) UA - GLUCOSE Negative (Normal) 76-Flu-816865:01 HgA1C , Office (44416) HgA1C , Office 5.3 % (Normal) Range: 4.6 - 7.1 97-Dyd-712980:00 Blood Glucose , Office (71350) Blood Glucose , Office 127 (Normal) 69-Hfy-978187:54 Blood Glucose , Office (74717) Blood Glucose , Office 109 (Normal) 65-Huj-074638:54 HgA1C , Office (15927) HgA1C , Office 5.4 % (Normal) Range: 4.6 - 7.1 32-Uof-913941:10 Miscellaneous Lab Procedure Comments: Test(s) [facility]: [id number] [address] [place], [address] [facility] Comments: [id number] 6+OXYCODONE-BUND (ng/mL)DRUG RESULT SCREEN CUTOFF____ Amphetamines,Urine Negat [...] includes Oxydodone and Oxymorphone. TESTING PERFORMED AT [facility]. ORIGINAL REPORT ON FILE IN LAB CONTAINS AD DITIONAL TEST SITE INFORMATION. 02-Zos-849984:10 Urine Drug Screen (VISTA) Comments: List of Drugs Taken or Suspected? .[facility] [address], [address] THC POSITIVE (Abnormal) PCP NEGATIVE (Normal) OPIATES [...] TESTING MUST BE ORDERED SEPARATELY. USE TESTMNEMONIC: [facility]CA 29-Naq-477012:33 HgA1C , Office (27771) HgA1C , Office 5.4 % (Normal) Range: 4.6 - 7.1 76-Ckb-632773:45 CPK MB FRACTION (58258) Comments: PATIENT WAS FASTINGPERFORMED BY: [employer] [facility] [id number] Creatine Kinase (CK), MB 2.0 ng/mL (Normal) Range: 0.0-5.3 33-Lnk-067952:45 ASSAY, TROPONIN, QUANTITATIVE Comments: PATIENT WAS FASTINGPERFORMED BY: [employer] [facility] [id number] (aka Troponin I) (77027) Troponin I <0.01 ng/mL (Normal) Range: 0.00-0.04 21-Wje-538554:45 LIPID PANEL (38099) Comments: PATIENT WAS FASTINGPERFORMED BY: [facility]6[address] [facility] [id number] LDL/HDL Ratio 1.4 {ratio_units} (Normal) Range: 0.0-3.2 Comments: LDL/HDL Ratio Men Women 1/2 Avg.Risk 1.0 1.5 Av g.Risk 3.6 3.2 2X Avg.Risk 6.2 5.0 3X Avg.Risk 8.0 6.1 LDL Cholesterol Calc 94 mg/dL (Normal) Range: 0-99 VLDL Cholesterol Mike 21 mg/dL (Normal) Range: 5-40 HDL Cholesterol 66 mg/dL (Normal) Triglycerides 107 mg/dL (Normal) Range: 0-149 Cholesterol, Total 181 mg/dL (Normal) Range: 100-199 80-Vnu-277969:34 CBC, Platelets & Auto Diff Comments: PATIENT WAS FASTINGPERFORMED BY: ZAINAB [facility] Syqnbh9097 [facility] [id number] (37402) Immature Grans (Abs) 0.0 {x10E3/uL} (Normal) Range: [...] 3.77-5.28 WBC 6.9 {x10E3/uL} (Normal) Range: 3.4-10.8 1-Qlm-989679:33 HgA1C , Office (95377) HgA1C , Office 5.3 % (Normal) Range: 4.6 - 7.1 3-Fwm-623336:33 Blood Glucose , Office (33350) Blood Glucose , Office 96 (Normal) 0-Lms-382060:24 CBC With Differential/Platelet Comments: PATIENT NOT FASTINGPERFORMED BY: [facility]CoR[facility] HospitalQjvllr1296 [facility] [id number] Immature Grans (Abs) 0.0 {x10E3/uL} (Normal) Range: [...] 3.77-5.28 WBC 8.8 {x10E3/uL} (Normal) Range: 3.4-10.8 5-Qaj-751307:24 Comp. Metabolic Panel (14) Comments: PATIENT NOT FASTINGPERFORMED BY: [facility]CoRunnells Special[facility] HospitalRuxgwv7456 [facility] [id number] ALT (SGPT) 18 [iU]/L (Normal) Range: 0-32 [...] Glucose, Serum 102 mg/dL (Abnormal) Range: 65-99 6-Uas-271869:24 Lipid Panel With LDL/HDL Comments: PATIENT NOT FASTINGPERFORMED BY: [facility] Ikvwqg6712 [facility] [id number] Ratio LDL/HDL Ratio 2.1 {ratio_units} Range: 0.0-3.2 [...] ng/mL (Abnormal) Comments: PATIENT NOT FASTINGPERFORMED BY: [facility] Dxmhwr8858 [facility] [id number] 3:24 Range: 30.0-100.0 Comments: Vitamin D deficiency has been defined by the [place] ofMedicine and an Endocrine Society practice guideline as alevel of serum 25-OH vitamin D less than 20 ng/mL (1,2).The Endocrine Society went on to further define vitamin Dinsufficiency as a level between 21 and 29 ng/mL (2).1. IOM ([place] of Medicine). 2010. Dietary reference intakes for calcium and D. [place]: The National Academies Press.2. Rodolfo MF, Dwight HELTON, Zeke OWUSU, et al. Evaluation, treatment, and prevention of vitamin D deficiency: an Endocrine Society clinical practice guideline. JCEM. 2010; 96(7):1911-30. 4-Qzi-727467:58 MICROALBUMIN: CREATININE RATIO Comments: PATIENT NOT FASTINGPERFORMED BY: [facility]6370 [facility] [id number] (29839) AND (00615) Microalb/Creat Ratio 14.5 {mg/g_creat} (Normal) Range: 0.0-30.0 Microalbumin, Urine 4.1 ug/mL (Normal) Creatinine, Urine 28.2 mg/dL (Normal) 4-Ngp-649042:18 Miscellaneous Lab Procedure Comments: Comments: [id number] URINE DRUGTest(s) Ordered: [id number] [facility]WPro[facility] Bpdocyqaar[address] [place], [address] [facility] Comments: [id number] 6+OXYCODONE-BUND (ng/mL)DRUG RESULT SCREEN CUTOFF____ Amphetamines,Urine Negat [...] Oxydodone and Oxymorphone. ____ TESTING PERFORMED AT [facility]. ORIGINAL REPORT ON FILE IN LAB CONTAINS ADDITIONAL TEST SITE INFORMATION. 7-Qrz-060648:18 Urine Drug Screen (VISTA) Comments: Comments: [id number] URINE DRUGList of Drugs Taken or Suspected? [facility] [address]abqy[address] [place], [address] THC NEGATIVE (Normal) PCP NEGATIVE (Normal) OPIATES [...] TESTING MUST BE ORDERED SEPARATELY. USE TESTMNEMONIC: [facility] 23-Zao-168961:14 HGB A1C (37644) Comments: PATIENT NOT FASTINGPERFORMED BY: [facility] [facility] [id number] Hemoglobin A1c 5.6 % (Normal) Range: 4.8-5.6 Comments: . Pre-diabetes: 5.7 - 6.4 Diabetes: >6.4 Glycemic control for adults with diabetes: <7.0 73-Vts-926230:11 URINE KEE CULTURE-IDENTIFICATN Comments: PATIENT NOT FASTINGPERFORMED BY: [id number] [id number] Information: SRC: ([id number]) Antimicrobial MIHEAD (Normal) Comments: S = Susceptible; [...] mL (Abnormal) Urine Final report Culture,Comprehensive (Abnormal) 25-Xxi-237352:42 Urinalysis, Office (70155) UA - LEUKOCYTE ESTERASE Moderate (Normal) UA - NITRITE Negative (Normal) URINE UROBILINGN DENISE TIMED Normal mg/dL (Normal) UA - PROTEIN Negative mg/dL (Normal) UA - PH 5 (Abnormal) UA - BLOOD Hemolyzed Small (Normal) UA - SPECIFIC GRAVITY 1.025 (Normal) UA - KETONES Negative mg/dL (Normal) UA - BILIRUBIN Negative (Normal) UA - GLUCOSE Negative (Normal) 62-Zxk-537587:58 URINE KEE CULTURE-IDENTIFICATN Comments: PATIENT NOT FASTINGPERFORMED BY: [facility] [id number] [facility] [id number] Information: SRC:SHAZIA (03734) Antimicrobial MIHEAD (Normal) Comments: S = Susceptible; [...] mL (Abnormal) Urine Final report Culture,Comprehensive (Abnormal) 55-Qem-295200:45 Urinalysis, Office (29477) UA - LEUKOCYTE ESTERASE Small (Normal) UA - NITRITE Negative (Normal) URINE UROBILINGN DENISE TIMED Normal mg/dL (Normal) UA - PROTEIN Negative mg/dL (Normal) UA - PH 6 (Abnormal) UA - BLOOD Hemolyzed Small (Normal) UA - SPECIFIC GRAVITY 1.030 (Abnormal) UA - KETONES Moderate mg/dL (Normal) UA - BILIRUBIN Small (Normal) UA - GLUCOSE Negative (Normal) 95-Xzy-502458:30 Miscellaneous Lab Procedure Comments: Test(s) Ordered: [id number], [facility] Vikpbaxyuc[address] [place], [address] [facility] [place]: [id number] 6+OXYCODONE-BUND (ng/mL)DRUG RESULT SCREEN CUTOFF____ Amphetamines Negat [...] IN LAB CONTAINS ADDITIONAL TEST SITE INFORMATION. 21-Iaj-030614:30 Urine Drug Screen (VISTA) Comments: List of Drugs Taken or Suspected? [facility] Xelvsngogf47[address] [place], [id number] THC POSITIVE (Abnormal) PCP NEGATIVE (Normal) OPIATES [...] TESTING MUST BE ORDERED SEPARATELY. USE TESTMNEMONIC: [facility] :48 TSH (THYROID STIMULATING Comments: PATIENT NOT FASTINGPERFORMED BY: CB [facility] Dunjti7886 [address]Dublin [place] [id number] HORMONE) (92214) TSH 13.590 {uIU/mL} (Abnormal) Range: 0.450-4.500 :35 TSH (THYROID STIMULATING Comments: PATIENT NOT FASTINGPERFORMED BY: CB [facility] Fncgyl5093 [address]Dublin [place] [id number] HORMONE) (04210) TSH 0.080 {uIU/mL} (Abnormal) Range: 0.450-4.500 :35 DTDZP-ZVFVYKTGMWE-POBDD (31714) Comments: PATIENT NOT FASTINGPERFORMED BY: CB [facility] Hmqesr1843 [address]Dublin [place] [id number] AFP, Serum, Tumor Marker 2.7 ng/mL (Normal) Range: 0.0-8.3 Comments: Katerin ECLIA methodology :35 SPEP (02533) Comments: PATIENT NOT FASTINGPERFORMED BY: CB [facility] Rhvvpc0989 [address] RoadDublin [place] [id number] Information: [id number] Please note: SPRCS (Normal) Comments: Protein electrophoresis scan will follow via computer, mail, orcourier delivery. A/G Ratio 1.1 (Normal) Range: 0.7-1.7 Globulin, Total 3.0 g/dL (Normal) Range: 2.2-3.9 M-Ramana Not Observed g/dL (Normal) Gamma Globulin 1.1 g/dL (Normal) Range: 0.4-1.8 Beta Globulin 1.0 g/dL (Normal) Range: 0.7-1.3 Vykfy-6-Sklhkbyp 0.6 g/dL (Normal) Range: 0.4-1.0 Kfawr-9-Migmikwq 0.3 g/dL (Normal) Range: 0.0-0.4 Albumin 3.3 g/dL (Normal) Range: 2.9-4.4 Protein, Total, Serum 6.3 g/dL (Normal) Range: 6.0-8.5 6-Kdc-913247:10 UPEP (57552) Comments: PATIENT NOT FASTINGPERFORMED BY: [address] [id number] Information: [id number] Please note: SPRCS (Normal) Comments: Protein electrophoresis scan will follow via computer, mail, orcourier delivery. M-Ramana, % Not Observed % (Normal) Gamma Globulin, U 17.4 % (Normal) Beta Globulin, U 30.8 % (Normal) Ewbcl-4-Wsrhirmw, U 20.9 % (Normal) Whewx-6-Jbichpfy, U 7.5 % (Normal) Albumin, U 23.4 % (Normal) Protein,Total,Urine 4.9 mg/dL (Normal) 4-Zej-417066:08 urine immunofixation (43252) Comments: PATIENT NOT FASTINGPERFORMED BY: [address] [id number] Information: SRC:UR [id number] MIGDALIA Interpretation:U UPEIP (Normal) Comments: No monoclonality detected. 0-Hpn-290875:50 Urinalysis, Office (70298) UA - LEUKOCYTE ESTERASE Negative (Normal) UA - NITRITE Negative (Normal) URINE UROBILINGN DENISE TIMED Normal mg/dL (Normal) UA - PROTEIN Negative mg/dL (Normal) UA - PH 6.0 (Normal) Comments: 5.5 UA - BLOOD Negative (Normal) UA - SPECIFIC GRAVITY 1.030 (Abnormal) UA - KETONES Small mg/dL (Normal) UA - BILIRUBIN Negative (Normal) UA - GLUCOSE Negative (Normal) 83-Ocx-243770:30 ANTINUCLEAR ANTIBODIES DIRECT Comments: [facility] (refer to report for specific site)refer to report for address and phone number ELIJAH-DIRECT Negative (Normal) Comments: Performed at: [address], [place] [id number] Director: Ren Mcgovern PhD, Phone: [phone] 27-Otu-420084:30 CBC W/Diff, Automated Comments: [facility] [address], [address] Absolute Lymph 2.05 {X10_3/ul} (Normal) [...] 4.2-5.4 WBC 7.9 K/mm3 (Normal) Range: 4.4-11.0 18-Gyq-021309:30 Comprehensive Metabolic Profil Comments: Serial Specimen #1, #2 or #3? [facility] [address]avi[address] [place], [address] GAP 6 (Normal) Range: 5-15 [...] 7-18 GLU 101 mg/dL (Normal) Range: 70-110 62-Lqh-344614:30 CRP Comments: Serial Specimen #1, #2 or #3? 1[facility] [address] [place], [place], [address] C-REACTIVE PROT < 2.90 mg/L (Normal) Range: 0.0-3.0 Comments: C-Reactive Protein (CRP) provides useful information for thediagnosis, therapy and monitoring of inflammatory processesand associated diseases. For the evaluation of Relative Riskfor Cardiovascular Dise ase, a High Sensitivity CRP (HSCRP)should be ordered. :30 Erythrocyte Sed Rate Comments: [facility] [address], [address] SED RATE 20 mm/h (Normal) Range: 0-30 25-Mbn-126695:30 Immunofixation Urine Comments: [facility] (refer to report for specific site)refer to report for address and phone number MIGDALIA Urine Test not performed (Normal) Comments: Quantity was not sufficient for analysis.CONTACTED MAHAD AT YOUR FACILITY 11-15-1513-Nov-201597-Nek-443455:30 Immunofixation, Serum Comments: [facility] (refer to report for specific site)refer to report for address and phone number MIGDALIA RESULT,S Comment (Normal) Comments: No monoclonality detected. IMMUNOGL M 137 mg/dL (Normal) Range: 26-217 IMMUNO A 225 mg/dL (Normal) Range: 87-352 IMMUNO G 1077 mg/dL (Normal) Range: 700-1600 06-Lgt-114948:30 [place] Lambda Light Chains Comments: [facility] (refer to report for specific site)refer to report for address and phone number KAPPA/LAMBDA % 1.03 (Normal) Range: 0.26-1.65 FR LAMBDA LT CH 17.65 mg/L (Normal) Range: 5.71-26.30 FR KAPPA LT CHN 18.21 mg/L (Normal) Range: 3.30-19.40 :30 LDH 201 U/L (Normal) Comments: Serial Specimen #1, #2 or #3? 1W[facility] [address] [place], [place], [address] Range: 84-246 94-Avm-255117:30 Microalb:Creat Ratio,Random UR Comments: [facility] [address] [place], [place], [address] MALB:CREAT 7.0 {mg/g_CRE} (Normal) MICROALBUMIN,UR 10.3 mg/L (Normal) UR CREAT 148.00 mg/dL (Normal) :30 Protein Electro.Ur-Random Comments: [facility] (refer to report for specific site)refer to report for address and phone number NOTE Comment (Normal) Comments: Protein electrophoresis scan will follow via computer,mail, or film reader delivery. M-SPIKE,U Test not performed (Normal) GAMMA GLOB,U Test not performed (Normal) Comments: Test not performed BETA GLOB,U Test not performed (Normal) Comments: Test not performed GODBZ-4-PNNJ,U Test not performed (Normal) Comments: Test not performed XQAAZ-6-OLIE,U Test not performed (Normal) Comments: Test not performed ALBUMIN,UR Test not performed (Normal) Comments: Test not performed PROTEIN,UR Test not performed mg/dL Comments: Quantity was not sufficient for analysis.CONTACTED MAHAD AT YOUR FACILITY 11-15-15 (Normal) 59-Trc-065381:30 Urinalysis, Routine (Dipstick) Comments: How was Urine Obtained? CLEAN [facility] [address] [facility] [place], [address] LEUK ESTERASE 25 /ul (Abnormal) OCCULT BLOOD-UR 25 /ul (Abnormal) NITRITE UR Negative (Normal) UROBILI Normal mg/dL (Normal) PROT DIPSTX Negative mg/dL (Normal) pH UR 5.0 (Normal) Range: 5.0 - 8.0 SP.GR. DIPSTX 1.025 (Normal) Range: 1.002-1.030 KETONE UR Negative mg/dL (Normal) BILIRUBIN URINE Negative mg/dL (Normal) GLUCOSE, UR Normal mg/dL (Normal) CLARITY Clear (Normal) COLOR Yellow (Normal) 55-Eyy-527087:00 Cytology, Body Fluid / CSF Comments: Specimen Source: [facility] [address] [place], [place], [address] CYTOLOGY,BF/CSF SEE PATHOLOGY REPORT Comments: Specimen submitted to Anatomical Pathology Department fortesting. (Normal) 06-Rub-765807:00 CYTOSPIN ON FLUID See Note (Normal) Comments: [facility] [address] [place], [place], [address] Comments: Patient: SADIA LONGO : 1950 (64/F) Acct Num: [id number] Phys: Veronica GARZA,Cosmo Mishra [facility] Num: [id number] Loc: LABSPEC Specimen: [id number] Received: 08/31/15 - 1314 Spec Type: CYSPIN FL TISSUES TISSUES: CULTURE RESULTS No results available. CYTOLOGY GROSS Received is 10 ml of clear gold fluid labeled with the patient's name and and designat ed per the requisition as urine. Submitted for cytology preparation. / 08/31/15 TC:5 CPT:61918 CYTOLOGY STUDY Slides are reviewed. The specimen consists of benign squamous cells, benign urothelial cells and neutrophils. DIAGNOSIS CYTOLOGY Urine for cytology (cytospin): Negative for malignant cells. SJ:meliza 09/01/15 HEADER OPERATION: Not noted PRE-OP DIAGNOSIS: Hematu johnnie TISSUE SUBMITTED: Urine cytology Signed Samy Zayas 09/01/15 <signature on file> 73-Hjl-503538:04 Urinalysis, Office (36665) UA - LEUKOCYTE ESTERASE Negative (Normal) UA - NITRITE Negative (Normal) URINE UROBILINGN DENISE TIMED Normal mg/dL (Normal) UA - PROTEIN Negative mg/dL (Normal) UA - PH 5 (Abnormal) UA - BLOOD Hemolyzed Trace (Normal) UA - SPECIFIC GRAVITY 1.030 (Abnormal) UA - KETONES Negative mg/dL (Normal) UA - BILIRUBIN Negative (Normal) UA - GLUCOSE Negative (Normal) 58-Yft-533659:52 URINE KEE CULTURE-IDENTIFICATN Comments: PATIENT NOT FASTINGPERFORMED BY: [facility] [id number] [facility] [id number] Information: [id number] (33041) Antimicrobial MIHEAD (Normal) Comments: S = Susceptible; [...] pain syndrome) Planned Observations T4, FREE (THYROXINE) (99827)Indication: Abnormal TSH On: :44 Request T3, FREE (TRIDOTHYRONINE) (09072)Indication: Abnormal TSH On: :44 Request TSH (THYROID STIMULATING HORMONE) (11468)Indication: Abnormal TSH On: :44 Request CALCIFEDIOL (97274)Indication: Vitamin D deficiency On: :42 Request CBC, Platelets & Auto Diff (78311)Indication: Diabetes mellitus type II, controlled On: :41 Request Metabolic Panel, Comprehensive (43615)Indication: Diabetes mellitus type II, controlled On: :41 Request URINE KEE CULTURE-IDENTIFICATN (93169)Indication: Urinary frequency On: :27 Request Blood Glucose , Office (10425)Indication: Diabetes mellitus type II, controlled On: :33 Request Lipid Panel (73234)Indication: High triglycerides On: 1-Lqf-001123:10 Request CALCIFEDIOL (43330)Indication: Osteopenia On: :51 Request CBC, Platelets & Auto Diff (92988)Indication: Hypertension On: :49 Request Lipid Panel (81024)Indication: Hypertension On: :49 Request Metabolic Panel, Comprehensive (99888)Indication: Hypertension On: :49 Request Urinalysis, Office (92917)Indication: Hypertension On: :49 Request CALCIFEDIOL (76019)Indication: Vitamin D deficiency On: :55 Request TSH (THYROID STIMULATING HORMONE) (95583)Indication: Acquired hypothyroidism On: :51 Request CBC, Platelets & Auto Diff (47411)Indication: Diabetes mellitus type II, controlled On: :51 Request Metabolic Panel, Comprehensive (24699)Indication: Diabetes mellitus type II, controlled On: 1-Wce-032828:51 Request Metabolic Panel, Comprehensive (11969)Indication: Fatty liver On: :24 Request KLPYZ-CELBGJBLDTV-FRHXI (05175)Indication: Fatty liver On: 99-Zll-179628:23 Request serum free light chains (08802)Indication: Swelling of both lower extremities On: :53 Request UPEP (26311)Indication: Swelling of both lower extremities On: 53 Request urine immunofixation (38294)Indication: Swelling of both lower extremities On: :53 Request serum immunofixation (10946)Indication: Swelling of both lower extremities On: 53 Request URINALYSIS (23573)Indication: Swelling of both lower extremities On: :53 Request MICROALBUMIN: CREATININE RATIO (14793) AND (92236)Indication: Swelling of both lower extremities On: 53 Request BLOOD SMEAR, W/O MANUAL DIFF WBC (64438)Indication: Lymphadenopathy On: :45 Request LDH (LD) (LACTATE DEHYDROGENASE) (48566)Indication: Lymphadenopathy On: 42 Request ELIJAH (ANTINUCLEAR ANTIBODY) (04621)Indication: Lymphadenopathy On: :42 Request C-REACTIVE PROTEIN (16959)Indication: Lymphadenopathy On: :42 Request SED RATE ERYTHROCYTE (34405)Indication: Lymphadenopathy On: :42 Request METABOLIC PANEL, COMPREHENSIVE (67566)Indication: Lymphadenopathy On: :42 Request CBC, Platelets & Auto Diff (56499)Indication: Gingivitis On: 85-Uzp-037528:37 Request METABOLIC PANEL, COMPREHENSIVE (67043)Indication: High triglycerides On: 51-Xus-567767:55 Request LIPID PANEL (90782)Indication: High triglycerides On: 76-Hfr-823899:55 Request TSH (61396)Indication: Acquired hypothyroidism On: 20-Czy-335975:54 Request VITAMIN B-12 (CYANOCOBALAMIN) (65548)Indication: Memory change On: 2-Jwf-950601:54 Request TSH (05327)Indication: Acquired hypothyroidism On: :54 Request METABOLIC PANEL, COMPREHENSIVE (79032)Indication: Diabetes mellitus type II, controlled On: :53 Request CBC with auto diff (49559)Indication: Diabetes mellitus type II, controlled On: :53 Request LIPID PANEL (87021)Indication: Diabetes mellitus type II, controlled On: :53 Request MICROALBUMIN: CREATININE RATIO (87831) AND (89571)Indication: Diabetes mellitus type II, controlled On: :53 Request SED RATE ERYTHROCYTE (99109)Indication: Fatigue On: :51 Request C-REACTIVE PROTEIN (03088)Indication: Fatigue On: :51 Request FERRITIN (92231)Indication: Fatigue On: :51 Request IRON (90133)Indication: Fatigue On: 67-Bwj-440186:51 Request ALDOLASE (64803)Indication: Fibromyalgia (Renamed from Diffuse myofascial pain syndrome) On: 87-Gid-854450:51 Request Creatine Kinase Total (90360)Indication: Fibromyalgia (Renamed from Diffuse myofascial pain syndrome) On: :51 Request SPEP (75160)Indication: Fatigue On: 67-Lho-593314:51 Request UPEP (33047)Indication: Fatigue On: :51 Request FOLIC ACID SERUM (97335)Indication: Fatigue On: :51 Request VITAMIN B-12 (CYANOCOBALAMIN) (29701)Indication: Fatigue On: 45-Krf-123329:51 Request URINALYSIS, W/ MICRO (88434)Indication: Fatigue On: 71-Cma-273353:50 Request METABOLIC PANEL, COMPREHENSIVE (98367)Indication: Fatigue On: :50 Request Planned Procedures SCREENING DIGITAL TOMOSYNTHESIS OF On: 31-Jul-2017 Intent BREAST (27805)By: Anjelica Salguero CNP, CNP, Mary E ELECTROCARDIOGRAM, COMPLETE (ECG) On: 02-May-2017 Intent (94425)By: Anjelica Salguero CNP, CNP, Mary E ELECTROCARDIOGRAM, COMPLETE (ECG) On: 23-Mar-2017 Intent (17757)By: Anjelica Salguero CNP, CNP, Mary E DEXA SCAN AXIAL SKELETON (15370)By: On: 23-Jan-2017 Intent Anjelica Salguero CNP, CNP, Mary E Ear Irrigation (71799)By: Oscar On: 17-Oct-2016 Intent Anjelica ANGELES CNP, Mary E Wax CurettesBy: Anjelica Salguero CNP On: 17-Oct-2016 Intent Anjelica Salguero CNP MAMMOGRAM BREAST BILATERAL SCREENING On: 14-Jul-2016 Intent DIGITAL (87781)By: Sydneelisasatish Anjelica ANGELES CNP, Mary E Ultrasound - LiverBy: Sydneelisasatish KARTHIK, On: 12-Nov-2015 Intent [address]jelica Hernandez CNP CT - Chest (Without Contrast)By: On: 08-Sep-2015 Intent Arabella Parish DO INJECTION, PROLIA (J0897)By: Jem On: 24-Aug-2015 Intent Arabella WONG Comments: Lot:[id number]:12/08Dose:60mlRoute:sub qSite:l armGiven By:SARIKA signed CHEST CT WITHOUT CONTRAST (41662)By: On: 06-Jul-2015 Intent Arabella Parish DO Comments: HIGH RESOLUTION CT - Chest (Without Contrast)By: On: 29-Jun-2015 Intent Arabella Parish DO Comments: HIGH RESOLUTION Radiology - ChestBy: Arabella Parish DO On: 07-Jun-2015 Intent A Comments: PA&L CT - Abdomen & Pelvis (Without On: 04-Jun-2015 Intent Contrast)By: Arabella Parish DO Comments: stat call wet read MAMMOGRAM, SCREENING, BOTH BREAST On: 04-Jun-2015 Intent (66464)By: Arabella Parish DO MAMMOGRAM, SCREENING, BOTH BREAST On: 26-Feb-2015 Intent (86632)By: Arabella Parish DO Flu Vaccine (Quadrivalent) [id number]: On: 26-Feb-2015 Intent Arabella Parish DO ADMINISTRATION OF INFLUENZA VIRUS On: 26-Feb-2015 Intent VACCINE (G0008)By: Arabella Parish DO Comments: Lot #[id number]-L dltd, IMDose prefilled syringegiven by:CODY Summers and ABN signed Doppler Ultrasound OtherBy: Jem WONG, On: 07-Jul-2014 Intent Arabella A Comments: legs Planned Medications INJECTION, PROLIA Ordered: [...] 31.0-31.9,adult Fatigue : DISCONTINUED - LIPID PANEL (14260) Indication: Fatigue Nonsmoker : How to access [...] liver : DISCONTINUED - METABOLIC PANEL, COMPREHENSIVE (05906) Indication: Fatty liver Fatty liver : DISCONTINUED - NXDIH-AHSOMQGRJYM-AVTBO (06983) Indication: Fatty liver Depression : DISCONTINUED - CALCIFEDIOL (24254) Indication: Depression Nonsmoker : How to access [...] myofascial pain syndrome) Encounters Office Visit On: 05-Feb-2018 13:59 Encounter Reason: [...] (). Note for Discuss procedure results: Saw Janitor Dr. Skyler Odonnell at 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 IPL trillium pauma), has decreased energy level and is sleeping [...] peanut butter - no meat some cheese rwandan yogurt- saw Garnett and ordered sleep study [...]
--- OUTSIDE RECORDS SUMMARY | 2018-05-15 06:23 | XMS RPT_ITS | Continuity of Care Document ---
:1950 Author Organization [facility] Address [address] [facility] [address] [place] [address] Phone Care Team Providers Name Role Phone Sydneefer KARTHIK, Paloma Unavailable Mason Garnett Unavailable Milton GARZA, Neftaly Hutchinson Unavailable Garth GARZA, Yaniv King Unavailable Khushbu Cevallos Unavailable Unavailable Slarb PMO BUSINESS ANALYST, Dora Unavailable Unavailable Long PMO BUSINESS ANALYST, Bina Hernandez Unavailable Unavailable Tiesha Avina Unavailable Unavailable Unavailable Unavailable Problems Name Dates Details Abdominal pain, acute, left lower quadrant (Renamed from Acute abdominal pain in left lower quadrant) (R10.32, 789.04) Status: Active Abnormal CXR (R93.89, 793.2) Status: Active Abnormal TSH (R79.89, 790.6) Comments: was 0.08 in Nov now 18.99 labs done at [facility] will repeat with our lab today andnow seeing Radhagudelia most recent tsh undectable per pt.she is asking for another specialist or myself to follow Status: Active Acquired hypothyroidism (E03.9, 244.9) Comments: Seeing Dr. Lobato in [place] on tircent they monitor Status: Active Allergic [...] stopped seeing Barrington Wayne seeing Dany in [place] Status: Active Encounter for gynecological examination without [...] treated initially by endocrine, will take over [facility] work up and management labs, ekg todaytakes [...] Relief 50 MCG/ACT Nasal Suspension 2 (two) [place] daily for 0 days Quantity: 1 {[place]} Refills: 0 Ordered:05-Feb-2018 Khushbu Cevallos Start : 02-Nov-2017 Active Metoprolol Succinate ER 50 MG Oral Tablet Extended Release 24 Hour 1 (one) Tablet daily for 0 days Quantity: 30 {Tablet} Refills: 0 Ordered:02-Nov-2017 Oscar KARTHIK, Anjelica Moody KARTHIK Anjelica Hutchinson Start : 02-Nov-2017 Active Comments:Endo Morphine Sulfate 15 MG Oral Tablet 1 qd (15 MG) Active Tirosint 100 MCG Oral Capsule 1 one daily and 2 on wednesdays (100 MCG) Active TRAZODONE HCL, 300MG (Oral Tablet) 1 (one) Tablet Tablet q hs for 30 days Quantity: 30 {Tablet} Refills: 0 Ordered:11-Aug-2014 Jem Arabella Satish Start : 07-Jul-2014 Active VITAMIN B12, 100MCG (Oral Tablet) 1 tab daily (100 MCG) Active VITAMIN B-COMPLEX (Oral Tablet) 1 tab daily Active Vitamin D3 Super Strength 2000 UNIT Oral Capsule 1 (one) Capsule daily for 0 days Quantity: 30 {Capsule} Refills: 0 Ordered:17-Oct-2016 Oscar KARTHIK, Anjelica Moody CNP, Anjelica Hutchinson Start : 17-Oct-2016 Active Cheratussin AC 100-10 MG/5ML Oral Syrup 4 Milliliter qhs prn cough for 0 days Quantity: 120 {Milliliter} Refills: 0 Ordered:31-Jul-2017 Long PMO BUSINESS ANALYST, Bina L Start : 01-May-2017 End : 31-Jul-2017 Inactive Doxycycline Hyclate 100 MG Oral Tablet Delayed Release 1 (one) Tablet DR bid for 10 days Quantity: 20 {Tablet} Refills: 0 Ordered:23-Nov-2015 Oscar MINK FARMER, Anjelica Moody CNP, Anjelica Hutchinson Start : 23-Nov-2015 End : 03-Dec-2015 Inactive Embeda 20-0.8 MG Oral Capsule Extended Release 1 (one) Capsule daily per Dr Basali for 30 days Quantity: 30 {Capsule} Refills: 0 Ordered:31-Jul-2017 Long PMO BUSINESS ANALYST, Bina L Start : 01-May-2017 End : [...] 21 {Tablet} Refills: 0 Ordered:12-Nov-2015 Oscar ANGELES, Anjeilca Moody CNP, Anjelica Hutchinson Start : 12-Nov-2015 End : 19-Nov-2015 Inactive Omeprazole 40 MG Oral Capsule Delayed Release 1 (one) Capsule Capsule daily for 0 days Quantity: 30 {Capsule} Refills: 3 Ordered:31-Jul-2017 Bina Liriano LPN Start : 23-Mar-2017 End : 31-Jul-2017 Inactive [...] Quantity: 20 {Tablet} Refills: 0 Ordered:31-Jul-2017 Long PMO BUSINESS ANALYSTBina Steve Start : 17-Oct-2016 End : 31-Jul-2017 Inactive [...] (CAD), BILAT Result: Comments: See Note; NOTES: [facility] Imaging Services [address] [place] [address] SCREENING MAMM (CAD), BILAT MR#: [id number] Acct: [id number] Name: SADIA LONGO Rep #: [id number] : 1950 F 66 From: Xu Davila MD PCP: Anjelica Salguero NP Status: REG CLI Study: SCREENING MAMM (CAD), BILAT Date of Exam: 08/22/17 Exam# [id number] Ordering Dr: Anjelica Salguero MAMMO GRAPHY - [...] biopsy of a clinically suspicious abnorm ality. [id number] Electronically Signed: Xu Davila MD at 9:48 EDT Tel [phone], Service support , CC: Anjelica Salguero NP Airplane Pilot Chief: Signed 15-Jun-2017 Echocardiogram Complete Result: Comments: See Note; NOTES: [facility] Cardiovascular Services [address] [place] [address] Echo Complete 06/15/17 0933 MR#: [id number] Acct: [id number] Name: SADIA LONGO Rep #: [id number] : 1950 66 From: Yaniv Liang MD Attending Dr: Yaniv Liang MD Status: REG CLI Ordering Dr: Yaniv Liang MD Date: 06/15/17 Location: [facility] Sex: F C Admitted: Reason Fo [...] Date Yaniv Liang MD CC: Anjelica Salguero PROGRAMS ASSISTANT; Yaniv mera MD Date Dictated: 06/15/1733 Date Transcribed: 06/15/171642 Airplane Pilot Chief: Signed 15-Jun-2017 Stress Report Result: Comments: See Note; NOTES: [facility] Cardiovascular Services [address] [place] [address] MR#: [id number] Acct: [id number] Name: SADIA LONGO Rep #: [id number] : [birth year] 66 From: Yaniv Liang MD [...] of 92%. This note was generated with PEVESAation software. It may contain incorrect words, spelling, and punctuation that were not noted in checking the note before signing. 8 1019 <Electronically signed by Yaniv Liang MD> Date Yaniv Liang MD CC: Anjelica Salguero PROGRAMS ASSISTANT; Yaniv Liang MD Date Dictated: 06/15/17 1014 Date Transcribed: 06/15/17 1014 Airplane Pilot Chief: PM Signed 13-Jun-2017 Lumbar Spine 2 or 3 Views Result: Comments: See Note; NOTES: [facility] Imaging Services [address] [place] [address] Lumbar Spine 2 or 3 Views MR#: [id number] Acct: [id number] Name: SADIA LONGO #: [id number] : 1950 F 66 From: Robert Saba DO PCP: Anjelica Salguero NP Status: REG CLI Study: Lumbar Spine 2 or 3 Views Date of Exam: 06/13/17 Exam# [id number] Ordering Dr: Yung Alvarez MD STUDY: X-RAY [...] CC: Anjelica Salguero NP; Yung Alvarez MD Airplane Pilot Chief: Signed 31-May-2017 Cardiology Visit Report Result: Comments: See Note; NOTES: [facility] [address] [place] [address] OFFICE VISIT Date of Service: 05/31/17 MR#: [id number] Acct: [id number] Name: SADIA LONGO Rep #: [id number] : 1950 Provider: Yaniv Liang MD Age/Sex: 66/F Location: [facility] Status: Signed HPI HPI Details: SADIA LONGO, is a 66 F who presents to the office today for for outpatien t cardiovascular consultation based on concerns of shortness of breath/dyspnea, chest discomfort, and fatigue superimposed upon a reported history of underlying CAD. She states she has previously been e valuated by Dr. Murray Patterson of cardiology in the [place], [place] area. She notes in the past [...] study performed in June 2014 via the [facility] system. According to the report s [...] non-cardiovascular issues. Based upon notes from [facility] from 06/16/2012 it appears at that time [...] 60 mg/mL subcutaneous syringe 60 mg SC [id number] 05/30/17 [Hi story Confirmed 05/31/17] epinephrine 0.3 [...] QDAY 05/31/17 [History Confirmed ] [facility] Medical History Palpitations (Acute) SOB (shortness of [...] to this approach. Follow Up 6 Weeks (PA/PROGRAMS ASSISTANT) Coding Level of Care Code Off vis,new,level [...] Yaniv Liang MD> Date Yaniv Liang MD [facility] Signature: Date (if applicable) CC: Anjelica Salguero NP 31-May-2017 12 Lead EKG performed by [facility] Result: Comments: See Note; NOTES: [facility] [address] [place] [address] 12 Lead EKG performed by [facility] 05/31/17 1413 MR#: [id number] Acct: [id number] Name: SADIA LONGO Dennis Rep #: [id number] : 1950 66 From: Yaniv Liang MD Attending Dr: Yaniv Liang MD Status: DEP AMB Ordering Dr: Yaniv Liang MD Date: 05/31/17 Location: [facility] Sex: F C Admitted: [facility]/12 Lead EKG performed by [facility] ECG Report Interpretation Sinus Rhythm Poor R wave progressionElectronically signed on 05/31/2017 at 16:10 by Esvin Liang 05/31/17 1612 Date Yaniv Liang MD CC: Anjelica Salguero NP Date Dictated: 05/31/171412 Date Transcribed: 05/31/171412 Airplane Pilot Chief: PM Signed 29-Mar-2017 Emergency Department Summary Result: Comments: See Note; NOTES: [facility] Medical Records Department [address] [place] [address] Emergency Department Summary MR#: [id number] Acct: [id number] Name: RAMAKRISHNA LONGO Satish Collins Rep #: [id number] : 1950 66 From: Liam Whalen MD [...] COURSE: The patient w as treated with [place], placed in a walking boot. TREATMENT PLAN: The patient will be discharged with instructions to follow up with vehicle fare collector in 1 week if not improving. DISPOSITION: Home, improved, stable condition. IMPRESSION: Left foot sprain. Liam Whalen MD C C: Anjelica Salguero T: NTS JOB: [id number] 03/29/17 0650 <Electronically signed by Liam Whalen MD> Date _ Liam Whalen MD Cosigner Signature (If Indicated): Date CC: Anjelica Salguero NP Date Dictated: 03/23/172102 D ate Transcribed: 03/23/172102 Airplane Pilot Chief: Signed 13-Feb-2017 Dexa Bone Density Study (HP) Result: Comments: See Note; NOTES: [facility] Imaging Services [address] [place] [address] Dexa Bone Density Study () MR#: [id number] Acct: [id number] Name: SADIA LONGO Rep #: [id number] : 1950 F 66 From: Xu Davila MD PCP: Anjelica Salguero Status: REG CLI Study: Dexa Bone Density Study () Date of Exam: 02/13/17 Exam# [id number] Ordering Dr: Anjelica Salguero STUDY: DUAL ENERGY [...] / Z-score (-0.1) HPBD/Dexa Bone Density Study () IMPRESSION: The patient is considered osteopenic as [...] Xu Davila MD at 14:52 EDT Tel [phone], Service support , CC: Anjelica Salguero Airplane Pilot Chief: Signed 26-Jan-2017 Spine Lumbar (Routine) Result: Comments: See Note; NOTES: [facility] Imaging Services [address] [place] [address] Spine Lumbar (Routine) MR#: [id number] Acct: [id number] Name: DONTASADIA C Rep #: [id number] : 1950 F 66 From: Mason Gilliam MD PCP: Anjelica Salguero Status: REG CLI Study: Spine Lumbar (Routine) Date of Exam: 01/26/17 Exam# [id number] Ordering Dr: Yung Alvarez MD STUDY: MRI [...] , CC: Anjelica Salguero; Yung Alvarez MD Airplane Pilot Chief: Signed 02-Mar-2016 Cerv Spine 2 or 3 Views Result: Comments: See Note; NOTES: [facility] Imaging Services [address] [place] [address] Verdana 4d Cerv Spine 2 or 3 Views MR#: [id number] Acct: [id number] Name: SADIA LONGO Rep #: [id number] : 1950 F 65 From: Marshall Landaverde DO PCP: Anjelica Salguero Status: REG CLI Study: Cerv Spine 2 or 3 Views Date of Exam: 03/02/16 Exam# [id number] Ordering Dr: Yung Alvarez MD STUDY : [...] Marshall Landaverde DO at 23:01 EST Tel [phone], Service support [phone], CC: Anjelica Salguero; Yung Alvarez MD Airplane Pilot Chief: Signed 02-Mar-2016 Lumbar Spine 2 or 3 Views Result: Comments: See Note; NOTES: [facility] Imaging Services [address] [place] [address] Verdana 4d Lumbar Spine 2 or 3 Views MR#: [id number] Acct: [id number] Name: SADIA LONGO Rep #: [id number] : 1950 F 65 From: Marshall Landaverde DO PCP: Anjelica Salguero Status: REG CLI Study: Lumbar Spine 2 or 3 Views Date of Exam: 03/02/16 Exam# [id number] Ordering Dr: Yung Alvarez MD S TUDY: [...] tissue structures are unremarkable. ORD ER #: [id number] RAD/Lumbar Spine 2 or 3 Views IMPRESSION: Stable degenerative changes of the lumbar spine. Electronically Signed: Marshall Landaverde DO at 23:10 EST Tel [phone], Service support [phone], CC: Anjelica Salguero; Yung Alvarez MD Airplane Pilot Chief: Signed 16-Nov-2015 Liver Result: Comments: See Note; NOTES: [facility] Imaging Services [address] [place] [address] Verdana 4d Liver MR#: [id number] Acct: [id number] Name: SADIA LONGO Rep # : [id number] : 1950 F 64 From: Apryl Melendez MD PCP: Arabella Parish DO Status: REG CLI Study: Liver Date of Exam: 11/16/15 Exam# [id number] Ordering Dr: Anjelica Salguero STUDY: ABDOMINAL ULTRASOU [...] is no demonstrated mass lesion. Gallbladder: Th patient is status post cholecystectomy. Common Bile [...] hydronephrosis. CC: Anjelica Salguero; Arabella Parish DO Airplane Pilot Chief: Signed 16-Nov-2015 Liver Result: Comments: See Note; NOTES: [facility] Imaging Services [address] [place] [address] Verdana 4d Liver MR#: [id number] Acct: [id number] Name: SADIA LONGO Rep # : [id number] : 1950 F 64 From: Apryl Melendez MD PCP: Arabella Parish DO Status: REG CLI Study: Liver Date of Exam: 11/16/15 Exam# [id number] Ordering Dr: Anjelica Salguero STUDY: ABDOMINAL ULTRASOU [...] at 8:20 EDT Tel , Service support [phone], CC: Anjelica Salguero; Arabella Parish DO Airplane Pilot Chief: Signed 03-Sep-2015 Kidney and Bladder Result: Comments: See Note; NOTES: [facility] Imaging Services [address] [place] [address] Verdana 4d Kidney and Bladder MR#: [id number] Acct: [id number] Name: LISA LONGO Rep #: [id number] : 1950 F 64 From: Bonilla Belle DO PCP: Arabella Parish DO Status: REG CLI Study: Kidney and Bladder Date of Exam: 09/03/15 Exam# [id number] Ordering Dr: Cosmo Martin MD STUDY: RENAL [...] Bonilla Belle DO at 23:38 EDT Tel [phone], Service support [phone], CC: Arabella Parish DO; Cosmo Martin MD Airplane Pilot Chief: Signed 23-Jul-2015 Bilat Scrn Digital AND CAD Result: Comments: See Note; NOTES: [facility] Imaging Services [address] [place] [address] Verdana 4d Bilat Scrn Digital AND CAD MR#: [id number] Acct: [id number] Name: SADIA LONGO Rep #: [id number] : 1950 F 64 From: Xu Davila MD PCP: Arabella Parish DO Status: REG CLI Study: Bilat Scrn Digital AND CAD Date of Exam: 07/23/15 Exam# [id number] Boogie phan Dr: Arabella Parish DO MAMMOGRAPHY [...] bio psy of a clinically suspicious abnormality. [id number] Electronically Signed: Xu Davila MD at 13:17 EDT Tel [phone], Service support [phone], CC: Arabella Parish DO Airplane Pilot Chief: Signed 08-Jun-2015 Chest PA and Lateral Result: Comments: See Note; NOTES: [facility] Imaging Services [address] [place] [address] Verdana 4d Chest PA and Lateral MR#: [id number] Acct: [id number] Name: SADIA LONGO Rep #: [id number] : 1950 F 64 From: Brock Wright MD PCP: Arabella Parish DO Status: REG CLI Study: Chest PA and Lateral Date of Exam: 06/08/15 Exam# [id number] Ordering Dr: Rasta Parish DO STUDY: X-RAY [...] FACR at 20:39 EST , Service support [phone], RAD/Chest PA and Lateral IMPRESSION: Mild interstitial changes in the lower lobes. No acute infiltrates or pleural effusions noted Electronically Signed: Brock Wright MD, FACR at 20:39 ES T , Service support [phone], CC: Arabella Parish DO Airplane Pilot Chief: Signed 04-Jun-2015 Abdomen/Pelvis without Cont Result: Comments: See Note; NOTES: [facility] Imaging Services [address] [place] [address] Verdana 4d Abdomen/Pelvis without Cont MR#: [id number] Acct: [id number] Name: SADIA LONGO Rep #: [id number] : 1950 F 64 From: Bonilla Belle DO PCP: Arabella Parish DO Status: REG CLI Study: Abdomen/Pelvis without Cont Date of Exam: 06/04/15 Exam# [id number] Ordering Dr: Arabella Gaming DO STUDY: CT [...] Bonilla Belle DO at 19:11 EST Tel [phone], Service support , CC: Arabella Parish DO Airplane Pilot Chief: Signed 27-Jul-2014 Sleep Study Report Result: Comments: See Note; NOTES: [facility] [address] [place] [address] Unattended Sleep Study MR#: [id number] Acct: [id number] Name: SADIA LONGO Effie ep #: [id number] : 1950 63 From: Mason Garnett MD PCP: Arabella Parish DO Status: REG CLI Ordering Dr.: Mason Garnett MD Date: 07/21/14 Sex: F C APNEA LINK PORTABLE POLYSOMNOGRAM: REFERRI PHYSICIAN: Dr. Mason Garnett. SLEEP HISTORY: The patient is a 63-year-old female with a calculated body mass index of 28.6 and an [place] Sleepiness Scale score of 20/24. The patient [...] version). Please note that a reference to [facility] in this report is consistent [...] subjective complaints, and elevated score on the [place] Sleepiness Scale are not explained by the [...] Jr., MD CC: Mason Garnett MD 1410 17007/27/14 1219 <Electronically signed by Mason Garnett MD> [...] Description Value Details :30 T4, FREE (THYROXINE) (79628) Comments: PATIENT NOT FASTINGPERFORMED BY: [facility] Nxesht3284 [facility] [id number] T4,Free(Direct) 1.93 ng/dL (Abnormal) Range: 0.82-1.77 45-Kqy-613523:30 T3, FREE (TRIDOTHYRONINE) (83965) Comments: PATIENT NOT FASTINGPERFORMED BY: [facility] Jjgsxd1202 [address] RoadDublin [place] [id number] Triiodothyronine (T3), Free 3.1 pg/mL (Normal) Range: 2.0-4.4 75-Ajb-052146:30 TSH (THYROID STIMULATING Comments: PATIENT NOT FASTINGPERFORMED BY: CB [facility] Igrsfz8345 [address] RoadDublin [place] [id number] HORMONE) (84961) TSH 0.006 {uIU/mL} (Abnormal) Range: 0.450-4.500 07-Vas-097101:30 CALCIFEDIOL (44954) Comments: PATIENT NOT FASTINGPERFORMED BY: CB [facility] Lqgogs[address] [facility] HospitalDublin [place] [id number] Vitamin D, 25-Hydroxy 33.6 ng/mL (Normal) Range: 30.0-100.0 Comments: Vitamin D deficiency has been defined by the [place] [facility] Centerc[facility] and an Endocrine Society practice guideline as alevel of serum 25-OH vitamin D less than 20 ng/mL (1,2).The Endocrine Society went on to further define vitamin Dinsufficiency as a level between 21 and 29 ng/mL (2).1. IOM ([place] of Medicine). 2010. Dietary reference intakes for calcium and D. [place]: The National Academies Press.2. Rodolfo MF, Dwight HELTON, Zeke OWUSU, et al. Evaluation, treatment, and prevention of vitamin D deficiency: an Endocrine Society clinical practice guideline. JCEM. 2010; 96(7):1911-30. 44-Nxm-905461:30 CBC, Platelets & Auto Diff Comments: PATIENT NOT FASTINGPERFORMED BY: [facility] Hbqwpn[address] [facility] [place] [id number] (91474) Immature Grans (Abs) 0.0 {x10E3/uL} (Normal) Range: [...] 3.77-5.28 WBC 10.3 {x10E3/uL} (Normal) Range: 3.4-10.8 82-Jlf-153396:30 Metabolic Panel, Comprehensive Comments: PATIENT NOT FASTINGPERFORMED BY: [facility] Rlpcrz3333 [facility] [id number] (23994) ALT (SGPT) 18 [iU]/L (Normal) Range: 0-32 [...] 8-27 Glucose 70 mg/dL (Normal) Range: 65-99 13-Bru-147811:11 Urinalysis, Office (94052) UA - LEUKOCYTE ESTERASE Trace (Normal) UA - NITRITE Negative (Normal) URINE UROBILINGN DENISE TIMED Normal mg/dL (Normal) UA - PROTEIN Negative mg/dL (Normal) UA - PH 6.0 (Normal) UA - BLOOD Hemolyzed Trace (Normal) UA - SPECIFIC GRAVITY 1.030 (Abnormal) UA - KETONES Negative mg/dL (Normal) UA - BILIRUBIN Negative (Normal) UA - GLUCOSE Negative (Normal) 20-Irm-017250:01 HgA1C , Office (46652) HgA1C , Office 5.3 % (Normal) Range: 4.6 - 7.1 55-Nsx-601560:00 Blood Glucose , Office (07180) Blood Glucose , Office 127 (Normal) 11-Ydq-778828:54 Blood Glucose , Office (38240) Blood Glucose , Office 109 (Normal) 48-Dpa-262745:54 HgA1C , Office (72319) HgA1C , Office 5.4 % (Normal) Range: 4.6 - 7.1 97-Shz-793997:10 Miscellaneous Lab Procedure Comments: Test(s) Ordered: [id number] [address] [place], [place], [id number] [facility] [place] Comments: [id number] 6+OXYCODONE-BUND (ng/mL)DRUG RESULT SCREEN CUTOFF____ Amphetamines,Urine Negat [...] includes Oxydodone and Oxymorphone. TESTING PERFORMED AT [facility]. ORIGINAL REPORT ON FILE IN LAB CONTAINS AD DITIONAL TEST SITE INFORMATION. 18-Gfs-531283:10 Urine Drug Screen (VISTA) Comments: List of Drugs Taken or Suspected? .[facility] [address] [place], [address] THC POSITIVE (Abnormal) PCP NEGATIVE (Normal) OPIATES [...] TESTING MUST BE ORDERED SEPARATELY. USE TESTMNEMONIC: [facility] 99-Nzi-086545:33 HgA1C , Office (58878) HgA1C , Office 5.4 % (Normal) Range: 4.6 - 7.1 44-Fgz-380299:45 CPK MB FRACTION (00617) Comments: PATIENT WAS FASTINGPERFORMED BY: [facility] TherapeuticsPershing Memorial HospitalRmnste4760 [facility] [id number] Creatine Kinase (CK), MB 2.0 ng/mL (Normal) Range: 0.0-5.3 49-Xpc-425846:45 ASSAY, TROPONIN, QUANTITATIVE Comments: PATIENT WAS FASTINGPERFORMED BY: [employer] ICT ServicesAcoma-Canoncito-Laguna Service UnitSighzu8441 [facility] [id number] (aka Troponin I) (71713) Troponin I <0.01 ng/mL (Normal) Range: 0.00-0.04 61-Ali-033174:45 LIPID PANEL (86378) Comments: PATIENT WAS FASTINGPERFORMED BY: [facility] ICT ServicesCape Regional Medical CenterLqfpfu1106 [facility] [id number] LDL/HDL Ratio 1.4 {ratio_units} (Normal) Range: 0.0-3.2 Comments: LDL/HDL Ratio Men Women 1/2 Avg.Risk 1.0 1.5 Av g.Risk 3.6 3.2 2X Avg.Risk 6.2 5.0 3X Avg.Risk 8.0 6.1 LDL Cholesterol Calc 94 mg/dL (Normal) Range: 0-99 VLDL Cholesterol Mike 21 mg/dL (Normal) Range: 5-40 HDL Cholesterol 66 mg/dL (Normal) Triglycerides 107 mg/dL (Normal) Range: 0-149 Cholesterol, Total 181 mg/dL (Normal) Range: 100-199 33-Tuk-315233:34 CBC, Platelets & Auto Diff Comments: PATIENT WAS FASTINGPERFORMED BY: [facility] ICT ServicesCape Regional Medical CenterOtismh2680 [facility] [id number] (25298) Immature Grans (Abs) 0.0 {x10E3/uL} (Normal) Range: [...] 3.77-5.28 WBC 6.9 {x10E3/uL} (Normal) Range: 3.4-10.8 0-Rri-940368:33 HgA1C , Office (46166) HgA1C , Office 5.3 % (Normal) Range: 4.6 - 7.1 5-Xou-261827:33 Blood Glucose , Office (34131) Blood Glucose , Office 96 (Normal) 8-Apy-934337:24 CBC With Differential/Platelet Comments: PATIENT NOT FASTINGPERFORMED BY: LabCoCape Regional Medical CenterPqssgd9909 [facility] [id number] Immature Grans (Abs) 0.0 {x10E3/uL} (Normal) Range: [...] 3.77-5.28 WBC 8.8 {x10E3/uL} (Normal) Range: 3.4-10.8 5-Qbv-077482:24 Comp. Metabolic Panel (14) Comments: PATIENT NOT FASTINGPERFORMED BY: LabCoCape Regional Medical CenterQvubcq6544 [facility] [id number] ALT (SGPT) 18 [iU]/L (Normal) Range: 0-32 [...] Glucose, Serum 102 mg/dL (Abnormal) Range: 65-99 0-Zfb-547635:24 Lipid Panel With LDL/HDL Comments: PATIENT NOT FASTINGPERFORMED BY: [employer]70 [employer] SystemsUofL Health - Medical Center South [id number] Ratio LDL/HDL Ratio 2.1 {ratio_units} Range: 0.0-3.2 [...] ng/mL (Abnormal) Comments: PATIENT NOT FASTINGPERFORMED BY: [employer] Ebiohv2527 [facility]SP [facility]EC[facility] [id number] 3:24 Range: 30.0-100.0 Comments: Vitamin D deficiency has been defined by the [place] of[place]icine and an Endocrine Society practice guideline as alevel of serum 25-OH vitamin D less than 20 ng/mL (1,2).The Endocrine Society went on to further define vitamin Dinsufficiency as a level between 21 and 29 ng/mL (2).1. IOM ([place] of Medicine). 2010. Dietary reference intakes for calcium and D. [place]: The National Academies Press.2. Rodolfo MF, Dwight HELTON, Zeke OWUSU, et al. Evaluation, treatment, and prevention of vitamin D deficiency: an Endocrine Society clinical practice guideline. JCEM. 2010; 96(7):1911-30. 5-Ahc-694049:58 MICROALBUMIN: CREATININE RATIO Comments: PATIENT NOT FASTINGPERFORMED BY: [facility] Elisin2382 [facility] [id number] (19951) AND (14672) Microalb/Creat Ratio 14.5 {mg/g_creat} (Normal) Range: 0.0-30.0 Microalbumin, Urine 4.1 ug/mL (Normal) Creatinine, Urine 28.2 mg/dL (Normal) 5-Xiy-956781:18 Miscellaneous Lab Procedure Comments: Comments: [id number] URINE DRUGTest(s) Ordered: [id number] URINE DRUGWSalem [facility] [address] [place], [place], [address] [facility] [place]: [id number] 6+OXYCODONE-BUND (ng/mL)DRUG RESULT SCREEN CUTOFF____ Amphetamines,Urine Negat [...] Oxydodone and Oxymorphone. ____ TESTING PERFORMED AT [facility]. ORIGINAL REPORT ON FILE IN LAB CONTAINS ADDITIONAL TEST SITE INFORMATION. 0-Rja-089643:18 Urine Drug Screen (VISTA) Comments: Comments: [id number] URINE DRUGList of Drugs Taken or Suspected? [facility] [address], [address] THC NEGATIVE (Normal) PCP NEGATIVE (Normal) OPIATES [...] TESTING MUST BE ORDERED SEPARATELY. USE TESTMNEMONIC: [facility] 50-Wzh-108998:14 HGB A1C (09129) Comments: PATIENT NOT FASTINGPERFORMED BY: ZAINAB [facility] Center[facility]khofp1356 [facility] [id number] Hemoglobin A1c 5.6 % (Normal) Range: 4.8-5.6 Comments: . Pre-diabetes: 5.7 - 6.4 Diabetes: >6.4 Glycemic control for adults with diabetes: <7.0 12-Rru-632451:11 URINE KEE CULTURE-IDENTIFICATN Comments: PATIENT NOT FASTINGPERFORMED BY: [facility] [id number] Information: SRC: ([id number]) Antimicrobial MIHEAD (Normal) Comments: S = Susceptible; [...] mL (Abnormal) Urine Final report Culture,Comprehensive (Abnormal) 38-Bku-830393:42 Urinalysis, Office (00072) UA - LEUKOCYTE ESTERASE Moderate (Normal) UA - NITRITE Negative (Normal) URINE UROBILINGN DENISE TIMED Normal mg/dL (Normal) UA - PROTEIN Negative mg/dL (Normal) UA - PH 5 (Abnormal) UA - BLOOD Hemolyzed Small (Normal) UA - SPECIFIC GRAVITY 1.025 (Normal) UA - KETONES Negative mg/dL (Normal) UA - BILIRUBIN Negative (Normal) UA - GLUCOSE Negative (Normal) 37-Duf-429918:58 URINE KEE CULTURE-IDENTIFICATN Comments: PATIENT NOT FASTINGPERFORMED BY: [facility] [id number] Information: SRC: ([id number]) Antimicrobial MIHEAD (Normal) Comments: S = Susceptible; [...] mL (Abnormal) Urine Final report Culture,Comprehensive (Abnormal) 66-Tdc-906008:45 Urinalysis, Office (41605) UA - LEUKOCYTE ESTERASE Small (Normal) UA - NITRITE Negative (Normal) URINE UROBILINGN DENISE TIMED Normal mg/dL (Normal) UA - PROTEIN Negative mg/dL (Normal) UA - PH 6 (Abnormal) UA - BLOOD Hemolyzed Small (Normal) UA - SPECIFIC GRAVITY 1.030 (Abnormal) UA - KETONES Moderate mg/dL (Normal) UA - BILIRUBIN Small (Normal) UA - GLUCOSE Negative (Normal) 59-Kmg-287467:30 Miscellaneous Lab Procedure Comments: Test(s) Ordered: lc 051127, [facility] [address]lalg[address] [place], [place], [address] [facility] [place]: [id number] 6+OXYCODONE-BUND (ng/mL)DRUG RESULT SCREEN CUTOFF____ Amphetamines Negat [...] IN LAB CONTAINS ADDITIONAL TEST SITE INFORMATION. 66-Eyp-419758:30 Urine Drug Screen (VISTA) Comments: List of Drugs Taken or Suspected? [facility] [address] [place], [address] THC POSITIVE (Abnormal) PCP NEGATIVE (Normal) OPIATES [...] TESTING MUST BE ORDERED SEPARATELY. USE TESTMNEMONIC: [facility] 3-Hvt-199240:48 TSH (THYROID STIMULATING Comments: PATIENT NOT FASTINGPERFORMED BY: [place] [id number] [facility] [id number] HORMONE) (48972) TSH 13.590 {uIU/mL} (Abnormal) Range: 0.450-4.500 :35 TSH (THYROID STIMULATING Comments: PATIENT NOT FASTINGPERFORMED BY: [facility] [id number] HORMONE) (73895) TSH 0.080 {uIU/mL} (Abnormal) Range: 0.450-4.500 :35 XMCNI-CETOLRLWASL-JLHUK (75596) Comments: PATIENT NOT FASTINGPERFORMED BY: [facility] [id number] AFP, Serum, Tumor Marker 2.7 ng/mL (Normal) Range: 0.0-8.3 Comments: Katerin ECLIA methodology 6-Xdj-047249:35 SPEP (82161) Comments: PATIENT NOT FASTINGPERFORMED BY: [facility] [id number] Information: [id number] Please note: SPRCS (Normal) Comments: Protein electrophoresis scan will follow via computer, mail, orcourier delivery. A/G Ratio 1.1 (Normal) Range: 0.7-1.7 Globulin, Total 3.0 g/dL (Normal) Range: 2.2-3.9 M-Ramana Not Observed g/dL (Normal) Gamma Globulin 1.1 g/dL (Normal) Range: 0.4-1.8 Beta Globulin 1.0 g/dL (Normal) Range: 0.7-1.3 Dqkty-1-Ectglsbi 0.6 g/dL (Normal) Range: 0.4-1.0 Pezso-1-Jvgpfnbg 0.3 g/dL (Normal) Range: 0.0-0.4 Albumin 3.3 g/dL (Normal) Range: 2.9-4.4 Protein, Total, Serum 6.3 g/dL (Normal) Range: 6.0-8.5 0-Ybg-004501:10 UPEP (77440) Comments: PATIENT NOT FASTINGPERFORMED BY: [facility] [id number] Information: [id number] Please note: SPRCS (Normal) Comments: Protein electrophoresis scan will follow via computer, mail, orcourier delivery. M-Ramana, % Not Observed % (Normal) Gamma Globulin, U 17.4 % (Normal) Beta Globulin, U 30.8 % (Normal) Iscvm-2-Tdcaqevl, U 20.9 % (Normal) Xptvv-1-Lpngdouq, U 7.5 % (Normal) Albumin, U 23.4 % (Normal) Protein,Total,Urine 4.9 mg/dL (Normal) 3-Pdz-378006:08 urine immunofixation (59648) Comments: PATIENT NOT FASTINGPERFORMED BY: [facility] [id number] [facility] [id number] Information: SRC:UR [id number] MIGDALIA Interpretation:U UPEIP (Normal) Comments: No monoclonality detected. 6-Hjb-118922:50 Urinalysis, Office (61549) UA - LEUKOCYTE ESTERASE Negative (Normal) UA - NITRITE Negative (Normal) URINE UROBILINGN DENISE TIMED Normal mg/dL (Normal) UA - PROTEIN Negative mg/dL (Normal) UA - PH 6.0 (Normal) Comments: 5.5 UA - BLOOD Negative (Normal) UA - SPECIFIC GRAVITY 1.030 (Abnormal) UA - KETONES Small mg/dL (Normal) UA - BILIRUBIN Negative (Normal) UA - GLUCOSE Negative (Normal) 49-Ple-307364:30 ANTINUCLEAR ANTIBODIES DIRECT Comments: [facility] (refer to report for specific site)refer to report for address and phone number ELIJAH-DIRECT Negative (Normal) Comments: Performed at: [facility] Lab[address] [id number] Director: Ren Mcgovern PhD, Phone: [phone] 31-Lmo-987886:30 CBC W/Diff, Automated Comments: [facility] [address] [place], [place], [address] Absolute Lymph 2.05 {X10_3/ul} (Normal) Range: 0.83-4.51 [...] 4.2-5.4 WBC 7.9 K/mm3 (Normal) Range: 4.4-11.0 22-Cyt-769775:30 Comprehensive Metabolic Profil Comments: Serial Specimen #1, #2 or #3? [facility] [address]erqxp[address] [place], [place], [id number] GAP 6 (Normal) Range: 5-15 CO2 27.0 [...] 7-18 GLU 101 mg/dL (Normal) Range: 70-110 77-Frs-347306:30 CRP Comments: Serial Specimen #1, #2 or #3? [facility] [address] [place], [place], [address] C-REACTIVE PROT < 2.90 mg/L (Normal) Range: 0.0-3.0 Comments: C-Reactive Protein (CRP) provides useful information for thediagnosis, therapy and monitoring of inflammatory processesand associated diseases. For the evaluation of Relative Riskfor Cardiovascular Dise ase, a High Sensitivity CRP (HSCRP)should be ordered. 79-Pxr-423050:30 Erythrocyte Sed Rate Comments: [facility] [address] [facility] [address] [place], [place], [address] SED RATE 20 mm/h (Normal) Range: 0-30 34-Sex-689398:30 Immunofixation Urine Comments: [facility] (refer to report for specific site)refer to report for address and phone number MIGDALIA Urine Test not performed (Normal) Comments: Quantity was not sufficient for analysis.CONTACTED MAHAD AT YOUR FACILITY 11-15-1513-Nov-201516-Jnl-642121:30 Immunofixation, Serum Comments: [facility] (refer to report for specific site)refer to report for address and phone number MIGDALIA RESULT,S Comment (Normal) Comments: No monoclonality detected. IMMUNOGL M 137 mg/dL (Normal) Range: 26-217 IMMUNO A 225 mg/dL (Normal) Range: 87-352 IMMUNO G 1077 mg/dL (Normal) Range: 700-1600 39-Jcr-972684:30 [place] [employer] Comments: [facility] (refer to report for specific site)refer to report for address and phone number KAPPA/LAMBDA % 1.03 (Normal) Range: 0.26-1.65 FR LAMBDA LT CH 17.65 mg/L (Normal) Range: 5.71-26.30 FR KAPPA LT CHN 18.21 mg/L (Normal) Range: 3.30-19.40 68-Hnt-145369:30 LDH 201 U/L (Normal) Comments: Serial Specimen #1, #2 or #3? [address] [place] [address] [address] [place], [address] Range: 84-246 61-Ztc-429511:30 Microalb:Creat Ratio,Random UR Comments: [facility] [address] [place], [address] MALB:CREAT 7.0 {mg/g_CRE} (Normal) MICROALBUMIN,UR 10.3 mg/L (Normal) UR CREAT 148.00 mg/dL (Normal) :30 Protein Electro.Ur-Random Comments: [facility] (refer to report for specific site)refer to report for address and phone number NOTE Comment (Normal) Comments: Protein electrophoresis scan will follow via computer,mail, or athletic coach delivery. M-SPIKE,U Test not performed (Normal) GAMMA GLOB,U Test not performed (Normal) Comments: Test not performed BETA GLOB,U Test not performed (Normal) Comments: Test not performed UGPIM-9-HVYC,U Test not performed (Normal) Comments: Test not performed TMNLR-2-TZLR,U Test not performed (Normal) Comments: Test not performed ALBUMIN,UR Test not performed (Normal) Comments: Test not performed PROTEIN,UR Test not performed mg/dL Comments: Quantity was not sufficient for analysis.CONTACTED MAHAD AT YOUR FACILITY 11-15-15 (Normal) 63-Wmz-310222:30 Urinalysis, Routine (Dipstick) Comments: How was Urine Obtained? CLEAN [facility] [address] [place], [address] LEUK ESTERASE 25 /ul (Abnormal) OCCULT BLOOD-UR 25 /ul (Abnormal) NITRITE UR Negative (Normal) UROBILI Normal mg/dL (Normal) PROT DIPSTX Negative mg/dL (Normal) pH UR 5.0 (Normal) Range: 5.0 - 8.0 SP.GR. DIPSTX 1.025 (Normal) Range: 1.002-1.030 KETONE UR Negative mg/dL (Normal) BILIRUBIN URINE Negative mg/dL (Normal) GLUCOSE, UR Normal mg/dL (Normal) CLARITY Clear (Normal) COLOR Yellow (Normal) 90-Fob-320985:00 Cytology, Body Fluid / CSF Comments: Specimen Source: [facility] [address]yzd[address] [place], [place], [address] CYTOLOGY,BF/CSF SEE PATHOLOGY REPORT Comments: Specimen submitted to Anatomical Pathology Department [facility]. (Normal) 85-Euz-087496:00 CYTOSPIN ON FLUID See Note (Normal) Comments: [facility] [address] [place], [place], [address] Comments: Patient: SADIA LONGO : 1950 (64/F) Acct Num: [id number] Phys: Veronica GARZA,Yung Unit Num: [id number] Loc: LAB[facility] Specimen: [id number] Received: 08/31/15 - 1314 Spec Type: CYSPIN FL TISSUES TISSUES: CULTURE RESULTS No results available. CYTOLOGY GROSS Received is 10 ml of clear gold fluid labeled with the patient's name and and designat ed per the requisition as urine. Submitted for cytology preparation. / 08/31/15 TC:5 CPT:11252 CYTOLOGY STUDY Slides are reviewed. The specimen consists of benign squamous cells, benign urothelial cells and neutrophils. DIAGNOSIS CYTOLOGY Urine for cytology (cytospin): Negative for malignant cells. SJ:meliza 09/01/15 HEADER OPERATION: Not noted PRE-OP DIAGNOSIS: Hematu johnnie TISSUE SUBMITTED: Urine cytology Signed Samy Zayas 09/01/15 <signature on file> 35-Ojd-800276:04 Urinalysis, Office (33050) UA - LEUKOCYTE ESTERASE Negative (Normal) UA - NITRITE Negative (Normal) URINE UROBILINGN DENISE TIMED Normal mg/dL (Normal) UA - PROTEIN Negative mg/dL (Normal) UA - PH 5 (Abnormal) UA - BLOOD Hemolyzed Trace (Normal) UA - SPECIFIC GRAVITY 1.030 (Abnormal) UA - KETONES Negative mg/dL (Normal) UA - BILIRUBIN Negative (Normal) UA - GLUCOSE Negative (Normal) 91-Pbx-201052:52 URINE KEE CULTURE-IDENTIFICATN Comments: PATIENT NOT FASTINGPERFORMED BY: ZAINAB [facility] Fncvps[address] Neli MultaniFormerly [facility], [facility] [id number] Information: [id number] (16595) Antimicrobial MIHEAD (Normal) Comments: S = Susceptible; [...] pain syndrome) Planned Observations T4, FREE (THYROXINE) (50432)Indication: Acquired hypothyroidism On: 83-Jsa-074717:21 Request TSH (THYROID STIMULATING HORMONE) (19141)Indication: Acquired hypothyroidism On: 01-Pjf-502767:21 Request T3, FREE (TRIDOTHYRONINE) (42830)Indication: Acquired hypothyroidism On: 80-Wsl-872845:21 Request URINE KEE CULTURE-IDENTIFICATN (33257)Indication: Urinary frequency On: 45-Vxo-504716:27 Request Blood Glucose , Office (71289)Indication: Diabetes mellitus type II, controlled On: 64-Wsp-430119:33 Request Lipid Panel (07623)Indication: High triglycerides On: 0-Ywq-229848:10 Request CALCIFEDIOL (82209)Indication: Osteopenia On: 1-Jay-445158:51 Request CBC, Platelets & Auto Diff (59421)Indication: Hypertension On: :49 Request Lipid Panel (33474)Indication: Hypertension On: :49 Request Metabolic Panel, Comprehensive (53652)Indication: Hypertension On: 49 Request Urinalysis, Office (66474)Indication: Hypertension On: :49 Request CALCIFEDIOL (78631)Indication: Vitamin D deficiency On: :55 Request TSH (THYROID STIMULATING HORMONE) (84053)Indication: Acquired hypothyroidism On: :51 Request CBC, Platelets & Auto Diff (18813)Indication: Diabetes mellitus type II, controlled On: : Request Metabolic Panel, Comprehensive (43645)Indication: Diabetes mellitus type II, controlled On: : Request Metabolic Panel, Comprehensive (61365)Indication: Fatty liver On: :24 Request GZYMK-VZFODSKYMCG-GFYLO (07570)Indication: Fatty liver On: :23 Request serum free light chains (30823)Indication: Swelling of both lower extremities On: :53 Request UPEP (67807)Indication: Swelling of both lower extremities On: 53 Request urine immunofixation (39969)Indication: Swelling of both lower extremities On: 53 Request serum immunofixation (14470)Indication: Swelling of both lower extremities On: :53 Request URINALYSIS (51776)Indication: Swelling of both lower extremities On: 53 Request MICROALBUMIN: CREATININE RATIO (11668) AND (54090)Indication: Swelling of both lower extremities On: 53 Request BLOOD SMEAR, W/O MANUAL DIFF WBC (46646)Indication: Lymphadenopathy On: Request LDH (LD) (LACTATE DEHYDROGENASE) (71444)Indication: Lymphadenopathy On: Request ELIJAH (ANTINUCLEAR ANTIBODY) (96186)Indication: Lymphadenopathy On: Request C-REACTIVE PROTEIN (13268)Indication: Lymphadenopathy On: 70-Ave-043010:42 Request SED RATE ERYTHROCYTE (06418)Indication: Lymphadenopathy On: 86-Vbu-546137:42 Request METABOLIC PANEL, COMPREHENSIVE (79919)Indication: Lymphadenopathy On: 92-Nok-813428:42 Request CBC, Platelets & Auto Diff (05579)Indication: Gingivitis On: 08-Boj-131925:37 Request METABOLIC PANEL, COMPREHENSIVE (92862)Indication: High triglycerides On: 31-Srb-824929:55 Request LIPID PANEL (61463)Indication: High triglycerides On: 40-Ysl-817915:55 Request TSH (11360)Indication: Acquired hypothyroidism On: 91-Gwu-072201:54 Request VITAMIN B-12 (CYANOCOBALAMIN) (45276)Indication: Memory change On: 7-Qph-594784:54 Request TSH (77862)Indication: Acquired hypothyroidism On: 3-Gmg-107674:54 Request METABOLIC PANEL, COMPREHENSIVE (59158)Indication: Diabetes mellitus type II, controlled On: 0-Gbw-201366:53 Request CBC with auto diff (62236)Indication: Diabetes mellitus type II, controlled On: 2-Mfr-070102:53 Request LIPID PANEL (49240)Indication: Diabetes mellitus type II, controlled On: 6-Vux-814888:53 Request MICROALBUMIN: CREATININE RATIO (18572) AND (49393)Indication: Diabetes mellitus type II, controlled On: 0-Mxv-897308:53 Request SED RATE ERYTHROCYTE (64429)Indication: Fatigue On: 30-Emb-226863:51 Request C-REACTIVE PROTEIN (55937)Indication: Fatigue On: 58-Vmy-107946:51 Request FERRITIN (09939)Indication: Fatigue On: 01-Kfa-439793:51 Request IRON (78439)Indication: Fatigue On: 14-Xbq-106744:51 Request ALDOLASE (33197)Indication: Fibromyalgia (Renamed from Diffuse myofascial pain syndrome) On: 38-Vqq-321863:51 Request Creatine Kinase Total (63956)Indication: Fibromyalgia (Renamed from Diffuse myofascial pain syndrome) On: 71-Zrp-430319:51 Request SPEP (46069)Indication: Fatigue On: 27-Lcm-986811:51 Request UPEP (79940)Indication: Fatigue On: 90-Rsb-532336:51 Request FOLIC ACID SERUM (73747)Indication: Fatigue On: 57-Ezj-815114:51 Request VITAMIN B-12 (CYANOCOBALAMIN) (17012)Indication: Fatigue On: :51 Request URINALYSIS, W/ MICRO (86253)Indication: Fatigue On: :50 Request METABOLIC PANEL, COMPREHENSIVE (74068)Indication: Fatigue On: :50 Request Planned Encounters Medical; 2 Week FU - On: 01-Mar-2018 10:30 [facility] Oscar ANGELES PalomaJasper Salguero CNP [place] Planned Procedures SCREENING DIGITAL TOMOSYNTHESIS OF On: 31-Jul-2017 Intent BREAST (04857)By: Oscar ANGELES PalomaJasper Salguero CNP [facility] ELECTROCARDIOGRAM, COMPLETE (ECG) On: 02-May-2017 Intent (75853)By: Anjelica Salguero CNP, CNP [facility] ELECTROCARDIOGRAM, COMPLETE (ECG) On: 23-Mar-2017 Intent (28462)By: Oscar ANGELES PalomaJasper Salguero CNP [facility] DEXA SCAN AXIAL SKELETON (86628)By: On: 23-Jan-2017 Intent Oscar ANGELES PalomaJasper Salguero CNP [place] Ear Irrigation (75625)By: Oscar On: 17-Oct-2016 Intent KARTHIK PalomaJasper Salguero CNP [facility] Wax CurettesBy: Oscar ANGELES [facility] On: 17-Oct-2016 Intent Oscar ANGELES [facility] MAMMOGRAM BREAST BILATERAL SCREENING On: 14-Jul-2016 Intent DIGITAL (43675)By: Oscar ANGELES PalomaJasper Salguero CNP [place] Ultrasound - LiverBy: Oscar ANGELES, On: 12-Nov-2015 Intent PalomaJasper Salguero CNP [place] CT - Chest (Without Contrast)By: On: 08-Sep-2015 Intent Arabella Parish DO INJECTION, PROLIA (J0897)By: Fast On: 24-Aug-2015 Intent Arabella WONG Comments: Lot:[id number]:12/08Dose:60mlRoute:sub qSite:l armGiven By:SARIKA signed CHEST CT WITHOUT CONTRAST (60803)By: On: 06-Jul-2015 Intent Arabella Parish DO Comments: HIGH RESOLUTION CT - Chest (Without Contrast)By: On: 29-Jun-2015 Intent Arabella Parish DO Comments: HIGH RESOLUTION Radiology - ChestBy: Arabella Parish DO On: 07-Jun-2015 Intent A Comments: PA&L CT - Abdomen & Pelvis (Without On: 04-Jun-2015 Intent Contrast)By: Arabella Parish DO Comments: stat call wet read MAMMOGRAM, SCREENING, BOTH BREAST On: 04-Jun-2015 Intent (20733)By: Arabella Parish DO MAMMOGRAM, SCREENING, BOTH BREAST On: 26-Feb-2015 Intent (54692)By: Arabella Parish DO Flu Vaccine (Quadrivalent) 21530Ru: On: 26-Feb-2015 Intent Arabella Parish DO ADMINISTRATION OF INFLUENZA VIRUS On: 26-Feb-2015 Intent VACCINE (G0008)By: Arabella Parish DO Comments: Lot #[id number]-L dltd, IMDose prefilled syringegiven by:CODY Summers and [...] 31.0-31.9,adult Fatigue : DISCONTINUED - LIPID PANEL (35318) Indication: Fatigue Nonsmoker : How to access [...] liver : DISCONTINUED - METABOLIC PANEL, COMPREHENSIVE (61526) Indication: Fatty liver Fatty liver : DISCONTINUED - VDSED-WXMAPJFDLVW-YSGDG (87373) Indication: Fatty liver Depression : DISCONTINUED - CALCIFEDIOL (37040) Indication: Depression Nonsmoker : How to access [...] (Renamed from Diffuse myofascial pain syndrome) Encounters Lab Order On: 06-Feb-2018 12:20 Encounter Diagnosis: [...] (). Note for Discuss procedure results: Saw Enterprise Software Developer Dr. Skyler Odonnell at [facility] now needs profiler, End: 01-May-2017 15:42 [ADDITIONAL REASON] Follow up [...] complaints (pre-cancerous areas on face,. IPL [place]), has decreased energy level and is sleeping [...] weight stable- went to sisters wedding in [place] with help of daughter and felt singificiantly [...] thinks maybe with bm- happened when in [place]- drinking more water- not much fiber - [...] peanut butter - no meat some cheese kazakh yogurt- saw Mariola and ordered sleep study [...]
--- OUTSIDE RECORDS SUMMARY | 2018-05-15 06:23 | XMS RPT_ITS ---
:1950 Author Organization [place] Support Name Relationship Address Phone R Unavailable Unavailable Unavailable DONTA, MOHAN Unavailable [address] + [place] [address] DONTA, ADEN Unavailable Unavailable + DONTA, MOHAN Unavailable [address] [facility] + [place] [address] DONTA, ADEN Unavailable Unavailable + UE Unavailable Unavailable Unavailable DONTA, MOHAN Unavailable [address] [facility] + [place] [address] DONTA, ADEN Unavailable Unavailable + UE Unavailable Unavailable Unavailable DONTA, MOHAN Unavailable [address] [facility] + [place] [address] DONTA, ADEN Unavailable Unavailable + UE Unavailable Unavailable Unavailable DONTA, MOHAN Unavailable [address] [facility] + [place] [address] DONTA, ADEN Unavailable Unavailable + UE Unavailable Unavailable Unavailable DONTA, MOHAN Unavailable [address] [facility] + [place] [address] DONTA, ADEN Unavailable Unavailable + UE Unavailable Unavailable Unavailable DONTA, MOHAN Unavailable [address] [facility] + [place] [address] DONTA, MOHAN Unavailable [address] [facility] + [place] [address] DONTA, MOHAN Unavailable [address] [facility] + [place] [address] UE Unavailable Unavailable Unavailable DONTA, MOHAN Unavailable [address] [facility] + [place] [address] DONTA, MOHAN Unavailable [address] [facility] + [place] [address] DONTA, MOHAN Unavailable [address] + [place] [address] UE Unavailable Unavailable Unavailable DONTA, MOHAN Unavailable [address] + [place] [address] UE Unavailable Unavailable Unavailable DONTA, MOHAN Unavailable [address] + [place] [address] UE Unavailable Unavailable Unavailable DONTA, MOHAN Unavailable [address] + [place] [address] UE Unavailable Unavailable Unavailable DONTA, MOHAN Unavailable [address] + [place] [address] UE Unavailable Unavailable Unavailable DONTA, MOHAN Unavailable [address] + [place] [address] DONTA, MOHAN Unavailable [address] + [place] [address] Care Team Providers Name Role Phone BROOKS ORTEGA Attending Unavailable [facility], [facility] Primary Care Unavailable BROOKS ORTEGA Attending Unavailable [facility], [facility] Primary Care Unavailable BROOKS ORTEGA Attending Unavailable [facility] Primary Care Unavailable Ciesa, Anjelica Attending Unavailable Fast DO, Arabella A Referring Unavailable Ciesa, Anjelica Consulting Unavailable Henrietta Corbett Attending Unavailable MoodYaniv ceja Attending Unavailable Ciesa, Anjelica Referring Unavailable [facility] Unavailable Yaniv Liang Attending Unavailable Garth Yaniv Referring Unavailable [facility] Unavailable ChaddiYung Attending Unavailable [facility] Unavailable Yaniv Liang Attending Unavailable Yaniv Liang Referring Unavailable Ciesa Anjelica Attending Unavailable [facility] Unavailable BasaliuYng Attending Unavailable BasaliYung Referring Unavailable [facility] Unavailable Ciesa, [facility] Unavailable White, Carmen Admitting Unavailable Rajat, Hbavana S. Consulting Unavailable Neftaly Mcqueen Attending Unavailable White, Carmen Admitting Unavailable White Carmen Attending Unavailable [facility] Unavailable Rajat, Bhavana S. Consulting Unavailable White, Carmen Consulting Unavailable White, Carmen Admitting Unavailable Ciesa, [facility] Unavailable Rajat, Bhavana S. Consulting Unavailable Neftaly Mcqueen Attending Unavailable Neftaly Mcqueen Consulting Unavailable White, Carmen Admitting Unavailable Ciesa, Anjelica Primary Care Unavailable Bhavana Earl Consulting Unavailable Neftaly Mcqueen Attending Unavailable Neftaly Mcqueen Consulting Unavailable Yung Alvarez Attending Unavailable Yung Alvarez Referring Unavailable Anjelica Salguero Primary Care Unavailable PROBLEMS PROBLEMS DATE TYPE CONDITION / CODE ATTENDING STATUS SOURCE 09/03/2017 Unknown F11.20 - Opioid Yung Alvarez Active [facility] dependence, Community uncomplicated / Hospital F11.20(ICD-10) Repository 07/19/2017 Unknown R07.9 - Chest pain, Moodispagloria, Yaniv Active [facility] unspecified / Community R07.9(ICD-10) Hospital Repository 05/31/2017 Unknown R06.02 - Shortness Moodispagloria, Yaniv Active [facility] of breath / Community R06.02(ICD-10) Hospital Repository 05/31/2017 Unknown R00.2 - Moodispaw, Yaniv Active [facility] Palpitations / Community R00.2(ICD-10) Hospital Repository 05/31/2017 Unknown I34.1 - Moodispaw, Yaniv Active [facility] Nonrheumatic mitral Community (valve) prolapse / Hospital I34.1(ICD-10) Repository 05/31/2017 Unknown I10 - Essential Moodispaw, Yaniv Active [facility] (primary) Community hypertension / Hospital I10(ICD-10) Repository 05/31/2017 Unknown R53.83 - Other Moodispagloria, Yaniv Active [facility] fatigue / Community R53.83(ICD-10) Hospital Repository PROCEDURES PROCEDURES No Procedure Records FoundRESULTS RESULTS CERV SPINE 2 OR 3 Observed: 03/19/2018 Status: F Source: PATERSON VIEWS 2:36 PM [facility] REPOSITORY [facility] Imaging Services [address] [place] [id number] Cerv Spine 2 or 3 Views MR#: [id number] Acct: [id number] Name: RAMAKRISHNA LONGOIdalia Collins Rep #: [id number] : 1950 F 67 From: Conrado Aldana MD PCP: Anjelica Salguero NP Status: REG CLI Study: Cerv Spine 2 or 3 Views Date of Exam: 03/19/18 Exam# [id number] Ordering Dr: Yung Alvarez MD STUDY: X-RAY - CERVICAL SPINE REASON FOR EXAM: Female, 67 years old. Neck pain. TECHNIQUE: 4 view(s) of the cervical spine were obtained. COMPARISON: None FINDINGS: Normal anterior atlantoaxial articulation. Normal odontoid process. Normal cervical lordosis. There is endplate spondylosis in the lower cervical spine. There is no demonstrated acute fracture on this examination. There is narrowing of C3-C4, C5-C6 and C6-7 disc spaces. There are small posterior degenerative spurs at the level of C6-C7. There is no prevertebral soft tissue swelling. RAD/Cerv Spine 2 or 3 Views IMPRESSION: Degenerative changes of the cervical spine as described above. Electronically Signed: Conrado Aldana MD at 14:27 EST Tel , Service support , CC: Anjelica Salguero NP; Yung Alvarez MD Overedger: Signed CONSULTATION Observed: 03/08/2018 Status: F Source: PATERSON 4:00 [facility]POSIT[facility] Medical Records Department [address] [place] [id number] Consultation 03/01/18 1556 MR#: [id number] Acct: [id number] Name: MARTINA LONGO Rep #: [id number] : 1950 67 From: Bhavana Earl MD PCP: Anjelica Salguero NP Status: DIS LIZET Y Location: [place] [address] Problem List (1) Left-sided weakness Status: Acute (2) Migraines Status: Chronic Qualifiers: Migraine type: unspecified Status migrainosus presence: without status migrainosus Intractability: not intractable Qualified Code(s): G43.909 - Migraine, unspecified, not intractable, without status migrainosus Reason for Consult Date of Consultation: 03/01/18 Reason for Consultation: Left sided weakness History of Present Illness: The patient is a 67 year old CF with PMH HTN, HLD, DM, hypothroidism, depression, Migraine on Botox and Aimovig injections, H/O neck surgery, H/O seizure with last seizure many years ago admitted with left sided weakness. Per patient she has been having some left sided weakness for the past few days to weeks, along with left sided numbness, but has been worse since this morning and sent from her doctor's office for furhter evaluation. Per patient her HAs has been controlled with Aimovig and Botox injections. At present she denies any FARIAS, have had FARIAS about this morning which was on top of the left side of the head, but denies any photophobia, phonophobia. Denies any dizziness, complaints of neck pain, denies any radicular symptoms, denies any low back pain. [] Past Medical History Past Medical History (Chronic Problems): Chronic Problems (Last Reviewed 05/31/17 @ 14:32 by Henrietta Corbett) Migraines (Chronic) Hypothyroidism (Chronic) Diabetes mellitus, type II (Chronic) Psoriatic arthritis (Chronic) GERD (gastroesophageal reflux disease) (Chronic) Fibromyalgia (Chronic) Mitral valve prolapse (Chronic) Hypertension (Chronic) Medical History: Medical History (Last Reviewed 05/31/17 @ 14:32 by Henrietta Corbett) Palpitations (Acute) R00.2 SOB (shortness of breath) (Acute) R06.02 Mitral valve prolapse (Chronic) I34.1 Hypertension (Chronic) I10 Fatigue (Acute) R53.83 Chest pain (Acute) R07.9 Chronic pain G89.29 Fibromyalgia M79.7 GERD (gastroesophageal reflux disease) K21.9 Hiatal hernia K44.9 Hypothyroidism E03.9 Osteopenia M85.80 Osteoporosis M81.0 Psoriatic arthritis L40.50 Type 2 diabetes mellitus E11.9 Chronic pain (Inactive) G89.29 Head ache (Inactive) R51 Hypothyroidism (Inactive) E03.9 Psoriatic arthritis (Inactive) L40.50 Allergies amoxicillin trihydrate [From Augmentin] Allergy (Verified 03/01/18 12:55) Shortness of breath ITCHING, SWELLING, HIVES aspirin Allergy (Verified 03/01/18 12:55) Anaphylaxis atropine sulfate [From Lomotil] Allergy (Verified 03/01/18 12:55) Itching SHORTNESS OF BREATH, HIVES cefixime [From Suprax] Allergy (Verified 03/01/18 12:55) Itching SHORTNESS OF BREATH, HIVES ceftriaxone sodium [From Rocephin] Allergy (Verified 03/01/18 12:55) Itching SHORTNESS OF BREATH, HIVES cephalexin monohydrate [From Keflex] Allergy (Verified 03/01/18 12:55) Itching SHORTNESS OF BREATH, HIVES ciprofloxacin [From Cipro] Allergy (Verified 03/01/18 12:55) Shortness of breath ciprofloxacin HCl [From Cipro] Allergy (Verified 03/01/18 12:55) Shortness of breath clindamycin Allergy (Verified 03/01/18 12:55) Itching HIVES, SHORTNESS OF BREATH diphenoxylate HCl [From Lomotil] Allergy (Verified 03/01/18 12:55) Itching SHORTNESS OF BREATH, HIVES gentamicin [Gentamicin] Allergy (Verified 03/01/18 12:55) Itching SHORTNESS OF BREATH, HIVES hydromorphone HCl [From Exalgo ER] Allergy (Verified 03/01/18 12:55) Itching SHORTNESS OF BREATH, HIVES metoclopramide HCl [From Reglan] Allergy (Verified 03/01/18 12:55) Anaphylaxis Penicillins [PCN] Allergy (Verified 03/01/18 12:55) Itching SHORTNESS OF BREATH, HIVES phenazopyridine HCl [From Pyridium] Allergy (Verified 03/01/18 12:55) Itching SHORTNESS OF BREATH, HIVES potassium clavulanate [From Augmentin] Allergy (Verified 03/01/18 12:55) Shortness of breath ITCHING, SWELLING, HIVES povidone-iodine [From Betadine] Allergy (Verified 03/01/18 12:55) Itching IF INJESTED propoxyphene HCl [From Darvon] Allergy (Verified 03/01/18 12:55) Itching SHORTNESS OF BREATH, HIVES red dye Allergy (Verified 03/01/18 12:55) Itching SHORTNESS OF BREATH, HIVES soap [From Betadine] Allergy (Verified 03/01/18 12:55) Itching IF INJESTED Sulfa (Sulfonamide Antibiotics) Allergy (Verified 03/01/18 12:55) Itching SHORTNESS OF BREATH, HIVES adhesive tape Adverse Reaction (Severe, Verified 03/01/18 12:55) skin peels clarithromycin [From Biaxin] Adverse Reaction (Severe, Verified 03/01/18 12:55) Vomiting ketorolac tromethamine [From Toradol] Adverse Reaction (Severe, Verified 03/01/18 12:55) Vomiting itching verapamil [Verapamil] Adverse Reaction (Severe, Verified 03/01/18 12:55) Other 3RD DEGREE HEART BLOCK azithromycin Adverse Reaction (Intermediate, Verified 03/01/18 12:55) vomiting iodine Adverse Reaction (Unknown, Verified 03/01/18 12:55) Unknown levofloxacin [From Levaquin] Adverse Reaction (Unknown, Verified 03/01/18 12:55) Unknown phenazopyridine [From Pyridium] Adverse Reaction (Unknown, Verified 03/01/18 12:55) Unknown carbamazepine [From Tegretol] Adverse Reaction (Verified 03/01/18 12:55) Unknown duloxetine HCl [From Cymbalta] Adverse Reaction (Verified 03/01/18 12:55) Unknown gabapentin [From Neurontin] Adverse Reaction (Verified 03/01/18 12:55) Other stomach pain, peripheral edema guaifenesin [From Entex T] Adverse Reaction (Verified 03/01/18 12:55) Vomiting TACHYCARDIA midazolam HCl [From Versed] Adverse Reaction (Verified 03/01/18 12:55) Other NO AFFECT-OKAY WITH DIPROVAN morphine Adverse Reaction (Verified 03/01/18 12:55) Other INSOMNIA, HALLUCINATIONS phenobarbital Adverse Reaction (Verified 03/01/18 12:55) Other PERODOXICAL REACTION pseudoephedrine HCl [From Entex T] Adverse Reaction (Verified 03/01/18 12:55) Vomiting TACHYCARDIA quetiapine fumarate [From Seroquel] Adverse Reaction (Verified 03/01/18 12:55) Other dystonia C-CLOR Allergy (Uncoded 10/30/13 23:22) Shortness of breath CAT SCAN DYE Allergy (Uncoded 10/30/13 23:22) Anaphylaxis CIPRO Allergy (Uncoded 10/30/13 23:22) Itching SHORTNESS OF BREATH, HIVES STERIODS Allergy (Uncoded 10/30/13 23:22) Other TRIGGERED ADDISONS DISEASE TAPE Adverse Reaction (Uncoded 10/30/13 23:22) Other SKIN PEELS XOPONEX Adverse Reaction (Uncoded 10/30/13 23:22) Other DISTONIA Home Medications: Ambulatory Orders Medication Instructions Recorded cholecalciferol (vitamin D3) 2,000 2,000 unit PO QDAY cap 05/30/17 unit capsule cyclobenzaprine 10 mg tablet 10 mg PO HS tab 05/30/17 Surgical History: Surgical History (Last Reviewed 05/31/17 @ 14:32 by Henrietta Corbett) History of cholecystectomy Z98.890, Z90.49 History of total hysterectomy Z98.890, Z90.710 Hx of appendectomy Z98.890, Z90.49 Surgical History: appendectomy, cholecystectomy, hysterectomy Psychiatric History: Anxiety, Depression 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 Lives: Alone Smoking Status: Never smoker Tobacco Use: Non-smoker Alcohol: None Drugs: None - *Family History Paternal Family History: Family History (Last Reviewed 05/31/17 @ 14:32 by Henrietta Corbett) Father CAD (coronary artery disease) Mother CVA (cerebral vascular accident) Grandfather Heart disease Grandmother Heart disease Uncle Sudden cardiac , Onset Age: 30 History Items: High Cholesterol, Heart Disease, Hypertension Maternal Family History: Family History (Last Reviewed 05/31/17 @ 14:32 by Henrietta Corbett) Father CAD (coronary artery disease) Mother CVA (cerebral vascular accident) Grandfather Heart disease Grandmother Heart disease Uncle Sudden cardiac , Onset Age: 30 History Items: Stroke Review of Systems Constitutional: Reports: - - complete ROS negative except as documented in HPI Patient Problems: Active and Suspected Problems (Last Reviewed 05/31/17 @ 14:32 by Henrietta Corbett) Left-sided weakness (Acute) - Physical Exam General: Alert HEENT: Normocephalic Neck: Supple Lungs: Normal air movement Cardiovascular: Normal S1, Normal S2 Abdomen: Bowel Sounds Present Extremities: No cyanosis Neurological: - - consious, alert, AoA x3, CN 2-12 grossly intact except ? fluctuating left facial droop, left facial sensory loss, power 5/5 right UE/LE, effor dependent 4/5 Left UE/LE, no pronator drift, hoovers sign +ve, subjective sensory loss left side, Reflexes + B/L B/S/T/K/A, no NR, gait deferred. Vital Signs Temp Pulse Resp BP Pulse Ox 98.1 F 80 12 127/57 H 94 03/01/18 12:50 03/01/18 15:37 03/01/18 15:37 03/01/18 15:37 03/01/18 15:37 Oxygen Flow Rate (L/min) 2 Oxygen Delivery Method Room Air Weight: 80.739 kg Body Mass Index (BMI) 32.5 Finger Stick Blood Glucose 95 Laboratory Tests Past 24 Hrs Assessment/Plan All Active Problems (Last Reviewed 05/31/17 @ 14:32 by Henrietta Corbett) Left-sided weakness (Acute) Palpitations (Acute) SOB (shortness of breath) (Acute) Fatigue (Acute) Chest pain (Acute) The patient is a 67 year old CF with PMH HTN, HLD, DM, hypothroidism, depression, Migraine on Botox and Aimovig injections, H/O neck surgery, H/O seizure with last seizure many years ago admitted with left sided weakness. Per patient she has been having some left sided weakness for the past few days to weeks, along with left sided numbness, but has been worse since this morning and sent from her doctor's office for furhter evaluation. Per patient her HAs has been controlled with Aimovig and Botox injections. At present she denies any FARIAS, have had FARIAS about this morning which was on top of the left side of the head, but denies any photophobia, phonophobia. Denies any dizziness, complaints of neck pain, denies any radicular symptoms, denies any low back pain. Plan Left sided weakness/numbness R/O Stroke vs Complicated migraine vs conversion d/o Plan -Check MRI brain/ MRA head/neck -Check MRI C spine -Is allergic to ASA per documentation -Will hold off on any acute migraine medication injectable management at present since patient denies any FARIAS. -Check ESR -GI/DVT prophylaxis -PT/OT -Psychiatry consult -Please call with questions if any -Thank you for allowing us to participate in patient's care and management Code Visit Inpatient [place] AND M: [id number] Init Hosp L3 03/08/18 1600 <Electronically signed by Bhavana Earl MD> Date Bhavana Earl MD Cosigner Signature (if applicable): Date CC: Anjelica Salguero FINANCIAL REPORTING ADVISOR; Agustin Earl MD Signed 12 LEAD ELECTROCARDIOGRAM Observed: 03/04/2018 Status: F Source: JANNET 2:09 PM [facility] REPOSITORY [facility] Cardiovascular Services [address] [place] [address] 12 Lead EKG 03/01/18 1333 MR#: [id number] Acct: [id number] Name: MARTINA LONGO Rep #: [id number] : 1950 67 From: Clark Mcmanus MD Attending Dr: Neftaly Mcqueen MD Status: DIS LIZET Ordering Dr: Sascha Addison MD Date: 03/01/18 Location: [facility] Sex: F C Admitted: 03/01/18 Test Reason : NUMBNESS Blood Pressure : / mmHG Vent. Rate : 079 BPM Atrial Rate : 079 BPM P-R Int : 148 ms QRS Dur : 086 ms QT Int : 402 ms P-R-T Axes : 046 022 002 degrees QTc Int : 460 ms Normal sinus rhythm Normal ECG Confirmed by CLARK MCMANUS ([id number]), science editor LAI MCKEON ([id number]) on 03/04/2018 2:09:13 PM Referred By: BETTE 03/04/18 1409 Date Clark Mcmanus MD CC: Anjelica Salguero NP; Neftaly Mcqueen MD; Sascha Addison MD Signed DISCHARGE SUMMARY Observed: 03/03/2018 Status: F Source: JANNET 12:39 PM [facility] REPOSITORY [facility] Medical Records Department [address] [place] [address] Discharge Summary 03/03/18 1133 MR#: [id number] Acct: [id number] Name: MARTINA LONGO Rep #: [id number] : 1950 67 From: Susana HERMAN PCP: Anjelica Salguero NP Status: ADM LIZET Y Location: [place] [address]-1 <JayantSusana - Last Filed: 03/03/18 11:56> Discharge Date and Diagnosis Date of Admission: 03/01/18 Date of Discharge: 03/03/18 - Primary Discharge Diagnosis Active and Suspected Problems (Last Reviewed 05/31/17 @ 14:32 by Henrietta Corbett) 1. Acute complex migraine exacerbation with history of chronic migraines 2. Hypothyroidism with iatrogenic subclinical hyperthyroidism- Tirosint regimen reduced 3. Acute cystitis 4. Hypertension 5. Hyperlipidemia 6. Chronic pain syndrome with psoriatic arthritis 7. Allergic rhinitis 8. Obesity - Secondary Discharge Diagnosis Chronic Problems (Last Reviewed 05/31/17 @ 14:32 by Henrietta Corbett) Migraines (Chronic) Hypothyroidism (Chronic) Diabetes mellitus, type II (Chronic) Psoriatic arthritis (Chronic) GERD (gastroesophageal reflux disease) (Chronic) Fibromyalgia (Chronic) Mitral valve prolapse (Chronic) Hypertension (Chronic) Hospital Course and Treatment Imaging Results: Diagnostic Data Brain CT 03/01/18 13:18 IMPRESSION: Chronic involutional changes of the brain. Electronically Signed: Xu Davila MD at 14:04 EST Tel [phone], Service support , Brain MRI 03/01/18 16:08 IMPRESSION: Mild periventricular white matter ischemic changes without evidence for acute infarct. Electronically Signed: Dillon Stevens MD at 19:34 EST , Service support , Cervical Spine MRI 03/01/18 16:08 IMPRESSION: No evidence for acute fracture or subluxation. Advanced spondylosis and multilevel spinal stenosis secondary to disc disease and bony hypertrophy Electronically Signed: Dillon Stevens MD at 21:16 EST , Service support , Head MRA 03/01/18 16:08 IMPRESSION: Normal MRA of the head Electronically Signed: Pepe Blue MD at 22:47 EST , Service support , Neck MRA 03/01/18 16:08 IMPRESSION: Normal bilateral cervical carotid arteries. Mild stenosis at the origin of the left vertebral artery. Vertebral arteries are otherwise unremarkable. Electronically Signed: Nimco Elizabeth MD at 20:33 EST Tel , Service support , Dr. Earl- Neurology Operations: None Procedures: None Summary of Care Provided: The patient is a 67 year old F admitted 03/01/2018 due to migraine and left-sided paresthesias. 1. Acute complex migraine exacerbation with history of chronic migraines-CVA ruled out. MRI of brain without evidence of acute infarct. Cervical spine MRI showed no evidence for acute fracture or subluxation. Advanced spondylosis and multilevel spinal stenosis secondary to disc disease and bony hypertrophy. Neck MRA shows normal bilateral carotid arteries. MRA of head normal. Neuro consulted. Neurology suspects complicated migraine versus conversion disorder. Neurology recommending psychiatric consult. Patient can be referred for psychiatric consult by primary care physician. Tox screen on admission positive for opiates, methamphetamine, cannabinoids. Patient's migraine has resolved. Recommend follow-up with primary neurologist in 1 week. Follow-up with primary care physician in 1 week. 2. Hypothyroidism with iatrogenic subclinical hyperthyroidism- recent undetectable TSH with decreased Synthroid regimen by primary care physician. TSH on admission 0.02. T4 1.2. Continued reduced dose of Titosint to 75mcg daily. Recommend repeat TSH in 4-6 weeks by primary care physician. 3. Acute cystitis-UA with 500 leukocyte, positive nitrite. Discharge on Macrobid 100 mg twice daily for 5 days. 4. Hypertension-continue home metoprolol regimen. 5. Hyperlipidemia- continue statin. 6. Chronic pain syndrome with psoriatic arthritis-Follows with Dr. Alvarez. CC Dr. Alvarez on DC summary given patient's tox screen as noted above. Patient is also prescribed benzos QHS and tox screen negative for benzodiazepines? 7. Allergic rhinitis- Continue fluticasone regimen. 8. Obesity- Encouraged diet and lifestyle modifications. General: Alert, Oriented x3, Cooperative HEENT: Atraumatic, PERRLA, EOMI, Normocephalic Neck: Supple, No JVD, Negative Carotid Bruits Lungs: Clear to auscultation, Normal air movement Cardiovascular: Regular rate, No murmurs Abdomen: Bowel Sounds Present, Soft, Non Tender, Non-Distended Extremities: No clubbing, No cyanosis, No edema, Capillary Refill Less than 3 Seconds Skin: No rashes, No breakdown Musculoskeletal: No Tenderness to Palpation of Joints or Extremities Neurological: Cranial nerves II-XII grossly intact, Neuro grossly intact Psych/Mental Status: Normal Affect, Appropriate Patient seen exam prior to discharge. Physical assessment as noted above. Patient stable for discharge home with the follow-up recommendations as noted above. This patient was seen by BATSHEVA Rivera under the supervision of Dr. Mcqueen. - Physical Exam Vital Signs Temp Pulse Resp BP Pulse Ox 98.3 F 73 16 131/45 H 97 03/03/18 09:38 03/03/18 10:58 03/03/18 09:38 03/03/18 09:38 03/03/18 09:38 Oxygen Flow Rate (L/min) 2 Oxygen Delivery Method Room Air Weight: 180 lb 5.41 oz Body Mass Index (BMI) 33.0 Finger Stick Blood Glucose 95 Intake and Output for Last 24 Hours Intake Total 866 / 866 2872 / 2872 605 / 605 Balance 866 / 866 2872 / 2872 605 / 605 Laboratory Tests Past 24 Hrs Urine Color Yellow Urine Clarity Clear Discharge Diet: 1800 Calorie Control Diet Discharge Activity: Return to Normal Activity Call your doctor if you observe: Numbness or Tingling, Shortness of breath, Dizziness, Fainting spells, Chest pain Home Medications: Medications to take at Discharge cholecalciferol (vitamin D3) 2,000 unit capsule 2,000 unit PO QDAY cap 05/30/17 cyclobenzaprine 10 mg tablet 10 mg PO HS tab 05/30/17 trazodone 300 mg tablet 300 mg PO QHS tab 05/30/17 Clonazepam 2 mg PO QHS 03/01/18 Epinephrine [Epi Pen] 0.3 mg IM PRN PRN 03/01/18 Erenumab-Aooe [Aimovig Autoinjector (2 Pack)] 70 mg SQ QMONTH 03/01/18 Fluticasone 0.05% [Flonase Nasal [place]] 2 spray NASAL DAILY 03/01/18 Lactobacillus Rhamnosus GG [Culturelle] 1 cap PO 03/01/18 Metoprolol Succinate [Toprol Xl] 50 mg PO DAILY 03/01/18 Morphine Sulfate 15 mg PO DAILY 03/01/18 Vitamin B Complex 1 tab PO DAILY 03/01/18 Nitrofurantoin Macrocrystals [Macrobid] 100 mg PO Q12 #10 capsule 03/03/18 Tirosint 75 mcg PO DAILY #30 03/03/18 Following Prescrptions Were Given to Patient: Nitrofurantoin Macrocrystals [Macrobid] 100 mg PO Q12 #10 capsule Tirosint 75 mcg PO DAILY #30 Primary Care Physician: Anjelica Salguero NP-C [Primary Care Provider] - Please follow up with your Primary Care Physician in: 1 Week Please Follow Up With: Yung Alvarez MD When: As scheduled Please Follow Up With: Primary Neurologist - May see Dr. Earl if no prior established neurologist. When: Call for follow up for chronic migraines. Disposition: Home Minutes spent on discharge:: 35 Patient Condition:: Stable Medical Necessity - Tobacco Use Smoking Status: Unknown if ever smoked Tobacco Use: Non-smoker Meaningful Use Info Meaningful Use Diagnoses (Choose all that apply): None applicable <Neftaly Mcqueen - Last Filed: 03/03/18 12:38> Discharge Date and Diagnosis - Secondary Discharge Diagnosis Chronic Problems (Last Reviewed 05/31/17 @ 14:32 by Henrietta Corbett) Migraines (Chronic) Hypothyroidism (Chronic) Diabetes mellitus, type II (Chronic) Psoriatic arthritis (Chronic) GERD (gastroesophageal reflux disease) (Chronic) Fibromyalgia (Chronic) Mitral valve prolapse (Chronic) Hypertension (Chronic) Hospital Course and Treatment Summary of Care Provided: This patient was seen in conjunction with BATSHEVA Rivera . I have independently interviewed and examined the patient and reviewed pertinent historical, laboratory, and other data. Please refer to BATSHEVA Rivera note for details of this patient's presentation, findings, and recommendations. I have reviewed BATSHEVA Rivera note and concur with documented findings. In brief, patient is a 67-year-old lady admitted with intractable headache and assessment of acute status migrainosus made admitted to a monitored bed for subsequent management Physical Examination: GENERAL: Cooperative HEENT: Clear conjunctiva, NECK; supple, normal thyroid, CHEST: Diminished to auscultation bilaterally, HEART: Regular S1-S2 ABDOMEN: soft, non-tender, normoactive bowel sounds, RECTAL: deferred EXTREMITIES: No edema, no clubbing, no cyanosis. MONKEY TRAINER: Awake, alert and oriented to time, place and person, Assessment: 1. Acute complex migraine exacerbation/ Status migrainosus 2. Essential hypertension 3. Hypothyroidism 4. Dyslipidemia 5. Chronic pain syndrome 6. Psoriatic arthritis 7. Allergic rhinitis 8. Obesity with BMI of 33.0 9. Acute cystitis 10. DVT prophylaxis-Lovenox sc. Hospital course: As elicited above by Susana Saba FINANCIAL REPORTING ADVISOR - Physical Exam Vital Signs Temp Pulse Resp BP Pulse Ox 98.3 F 73 16 131/45 H 97 03/03/18 09:38 03/03/18 10:58 03/03/18 09:38 03/03/18 09:38 03/03/18 09:38 Oxygen Flow Rate (L/min) 2 Oxygen Delivery Method Room Air Weight: 81.8 kg Body Mass Index (BMI) 33.0 Finger Stick Blood Glucose 95 Intake and Output for Last 24 Hours Intake Total 866 / 866 2872 / 2872 845 / 845 Balance 866 / 866 2872 / 2872 845 / 845 Laboratory Tests Past 24 Hrs Urine Color Yellow Urine Clarity Clear Code Visit OBSV E AND M: [id number] Observation care discharge 03/03/18 1157 <Electronically signed by Susana Saba FINANCIAL REPORTING ADVISOR-C> Date Susana Saba FINANCIAL REPORTING ADVISOR-C 03/03/18 1239<Electronically signed by Neftaly Mcqueen MD> Cosigner Signature (if applicable): Date Neftaly Mcqueen MD CC: Anjelica Salguero FINANCIAL REPORTING ADVISOR; FINANCIAL REPORTING ADVISORIndu Saba; Yung Alvarez MD; Neftaly Mcqueen MD Signed DISCHARGE INSTRUCTION Observed: 03/03/2018 Status: F Source: JANNET 11:31 AM [facility] REPOSITORY [facility] Medical Records Department [address] [place] [address] Instructions for Home/Discharge Instructions 03/03/18 1127 MR#: [id number] Acct: [id number] Name: MARTINA LONGO Rep #: [id number] : 1950 67 From: Susana HERMAN PCP: Anjelica Salguero NP Status: ADM LIZET - Discharge Diagnoses Current Active Problems: Current Active and Chronic Problems (Last Reviewed 05/31/17 @ 14:32 by Henrietta Corbett) Migraines (Chronic) Hypothyroidism (Chronic) Diabetes mellitus, type II (Chronic) Psoriatic arthritis (Chronic) GERD (gastroesophageal reflux disease) (Chronic) Fibromyalgia (Chronic) Left-sided weakness (Acute) You will use the following diet at home:: Calorie/Carbohydrate Controlled (specify 1200, 1400, etc) Discharge Activity: Return to Normal Activity Call your doctor if you observe: Numbness or Tingling, Shortness of breath, Dizziness, Fainting spells, Chest pain Additional Instructions: You will need your thyroid levels rechecked in 4-6 weeks by your primary care physician. Your Tirosint level was reduced due to low TSH. Allergies/Adverse Reactions: Allergies amoxicillin trihydrate [From Augmentin] Allergy (Verified 03/01/18 12:55) Shortness of breath ITCHING, SWELLING, HIVES aspirin Allergy (Verified 03/01/18 12:55) Anaphylaxis atropine sulfate [From Lomotil] Allergy (Verified 03/01/18 12:55) Itching SHORTNESS OF BREATH, HIVES cefixime [From Suprax] Allergy (Verified 03/01/18 12:55) Itching SHORTNESS OF BREATH, HIVES ceftriaxone sodium [From Rocephin] Allergy (Verified 03/01/18 12:55) Itching SHORTNESS OF BREATH, HIVES cephalexin monohydrate [From Keflex] Allergy (Verified 03/01/18 12:55) Itching SHORTNESS OF BREATH, HIVES ciprofloxacin [From Cipro] Allergy (Verified 03/01/18 12:55) Shortness of breath ciprofloxacin HCl [From Cipro] Allergy (Verified 03/01/18 12:55) Shortness of breath clindamycin Allergy (Verified 03/01/18 12:55) Itching HIVES, SHORTNESS OF BREATH diphenoxylate HCl [From Lomotil] Allergy (Verified 03/01/18 12:55) Itching SHORTNESS OF BREATH, HIVES gentamicin [Gentamicin] Allergy (Verified 03/01/18 12:55) Itching SHORTNESS OF BREATH, HIVES hydromorphone HCl [From Exalgo ER] Allergy (Verified 03/01/18 12:55) Itching SHORTNESS OF BREATH, HIVES metoclopramide HCl [From Reglan] Allergy (Verified 03/01/18 12:55) Anaphylaxis Penicillins [PCN] Allergy (Verified 03/01/18 12:55) Itching SHORTNESS OF BREATH, HIVES phenazopyridine HCl [From Pyridium] Allergy (Verified 03/01/18 12:55) Itching SHORTNESS OF BREATH, HIVES potassium clavulanate [From Augmentin] Allergy (Verified 03/01/18 12:55) Shortness of breath ITCHING, SWELLING, HIVES povidone-iodine [From Betadine] Allergy (Verified 03/01/18 12:55) Itching IF INJESTED propoxyphene HCl [From Darvon] Allergy (Verified 03/01/18 12:55) Itching SHORTNESS OF BREATH, HIVES red dye Allergy (Verified 03/01/18 12:55) Itching SHORTNESS OF BREATH, HIVES soap [From Betadine] Allergy (Verified 03/01/18 12:55) Itching IF INJESTED Sulfa (Sulfonamide Antibiotics) Allergy (Verified 03/01/18 12:55) Itching SHORTNESS OF BREATH, HIVES adhesive tape Adverse Reaction (Severe, Verified 03/01/18 12:55) skin peels clarithromycin [From Biaxin] Adverse Reaction (Severe, Verified 03/01/18 12:55) Vomiting ketorolac tromethamine [From Toradol] Adverse Reaction (Severe, Verified 03/01/18 12:55) Vomiting itching verapamil [Verapamil] Adverse Reaction (Severe, Verified 03/01/18 12:55) Other 3RD DEGREE HEART BLOCK azithromycin Adverse Reaction (Intermediate, Verified 03/01/18 12:55) vomiting iodine Adverse Reaction (Unknown, Verified 03/01/18 12:55) Unknown levofloxacin [From Levaquin] Adverse Reaction (Unknown, Verified 03/01/18 12:55) Unknown phenazopyridine [From Pyridium] Adverse Reaction (Unknown, Verified 03/01/18 12:55) Unknown carbamazepine [From Tegretol] Adverse Reaction (Verified 03/01/18 12:55) Unknown duloxetine HCl [From Cymbalta] Adverse Reaction (Verified 03/01/18 12:55) Unknown gabapentin [From Neurontin] Adverse Reaction (Verified 03/01/18 12:55) Other stomach pain, peripheral edema guaifenesin [From Entex T] Adverse Reaction (Verified 03/01/18 12:55) Vomiting TACHYCARDIA midazolam HCl [From Versed] Adverse Reaction (Verified 03/01/18 12:55) Other NO AFFECT-OKAY WITH DIPROVAN morphine Adverse Reaction (Verified 03/01/18 12:55) Other INSOMNIA, HALLUCINATIONS phenobarbital Adverse Reaction (Verified 03/01/18 12:55) Other PERODOXICAL REACTION pseudoephedrine HCl [From Entex T] Adverse Reaction (Verified 03/01/18 12:55) Vomiting TACHYCARDIA quetiapine fumarate [From Seroquel] Adverse Reaction (Verified 03/01/18 12:55) Other dystonia C-CLOR Allergy (Uncoded 10/30/13 23:22) Shortness of breath CAT SCAN DYE Allergy (Uncoded 10/30/13 23:22) Anaphylaxis CIPRO Allergy (Uncoded 10/30/13 23:22) Itching SHORTNESS OF BREATH, HIVES STERIODS Allergy (Uncoded 10/30/13 23:22) Other TRIGGERED ADDISONS DISEASE TAPE Adverse Reaction (Uncoded 10/30/13 23:22) Other SKIN PEELS XOPONEX Adverse Reaction (Uncoded 10/30/13 23:22) Other DISTONIA Medications to take at Discharge cholecalciferol (vitamin D3) 2,000 unit capsule 2,000 unit PO QDAY cap 05/30/17 cyclobenzaprine 10 mg tablet 10 mg PO HS tab 05/30/17 trazodone 300 mg tablet 300 mg PO QHS tab 05/30/17 Clonazepam 2 mg PO QHS 03/01/18 Epinephrine [Epi Pen] 0.3 mg IM PRN PRN 03/01/18 Erenumab-Aooe [Aimovig Autoinjector (2 Pack)] 70 mg SQ QMONTH 03/01/18 Fluticasone 0.05% [Flonase Nasal [place]] 2 spray NASAL DAILY 03/01/18 Lactobacillus Rhamnosus GG [Culturelle] 1 cap PO 03/01/18 Metoprolol Succinate [Toprol Xl] 50 mg PO DAILY 03/01/18 Morphine Sulfate 15 mg PO DAILY 03/01/18 Vitamin B Complex 1 tab PO DAILY 03/01/18 Nitrofurantoin Macrocrystals [Macrobid] 100 mg PO Q12 #10 capsule 03/03/18 Tirosint 75 mcg PO DAILY #30 03/03/18 The following prescriptions were given: Nitrofurantoin Macrocrystals [Macrobid] 100 mg PO Q12 #10 capsule Tirosint 75 mcg PO DAILY #30 Primary Care Physician: Anjelica Salguero NP-C [Primary Care Provider] - Please follow up with your Primary Care Physician in: 1 Week Test Results: Test results from this visit will be discussed in further detail at your follow-up appointment, if applicable. Please Follow Up With: Yung Alvarez MD When: As scheduled Please Follow Up With: Primary Neurologist - May see Dr. Earl if no prior established neurologist. When: Call for follow up for chronic migraines. Proposed Discharge Date: 03/03/18 03/03/18 1131 <Electronically signed by Susana HERMAN> Date Susana HERMAN CC: Anjelica Salguero NP; Agustin Earl MD Observed: 03/03/2018 Status: F Source: JANNET CULTURE, URINE 1:25 AM [facility] REPOSITORY Urine Culture ORGANISM 1: Presumptive E. coli [place] Count >100,000 Presumptive E. coli: REACTION Amoxacillin/Clavulanic Acid $ 4 S Ampicillin $ 4 S Ampicillin/Sulbactam $ <=2 S Cefazolin $ <=4 S Cefepime $ <=1 S Ceftriaxone $ <=1 S Ciprofloxacin $ <=0.25 S ESBL - Ertapenim $$$ <=0.5 S Gentamicin $ <=1 S Imipenem *NF <=0.25 S Levofloxacin $ <=0.12 S Nitrofurantoin $ <=16 S Piperacillin/Tazobactam $$ <=4 S Tobramycin $ <=1 S Trimethoprim/Sulfametho $ <=20 S (NF) indicates non-formulary drug at [facility]. Approval by Infectious Disease Specialist required before non-formulary drugs may be ordered and/or dispensed. Performed By: #### M100.0650 #### [facility] [address] [place], [address] CBC W/DIFF, AUTOMATED Collected: 03/02/2018 Status: F Source: PATERSON 5:19 AM [facility] REPOSITORY TYPE CODE TESTS RESULT OUT OF RANGE REFERENCE UNITS LAB L100.1000 4.4-11.0 K/mm3 Normal WBC 6.6 LAB L100.1200 4.2-5.4 M/mm3 Normal RBC 4.25 LAB L100.1300 12.0-15.0 g/dl Normal HGB 13.2 LAB L100.1400 37-47 % Normal HCT 41.1 LAB L100.1500 81-99 fL Normal MCV 96.7 LAB L100.1600 27.0-32.0 pg Normal MCH 31.1 LAB L100.1700 32-36 g/gl Normal MCHC 32.1 LAB L100.1810 11.6-14.6 % Normal RDW CV 12.6 LAB L100.1820 35.1-43.9 fl Normal RDW SD 43.7 LAB L100.1900 150-450 K/mm3 Normal PLT 190 LAB L100.2000 6.2-12.0 fl Normal MPV 9.6 LAB L100.2100 47-70 % Normal NEUT% 47.9 LAB L100.2200 19-41 % Normal LY% 39.9 LAB L100.2300 0-10 % Normal MONO% 8.8 LAB L100.2400 0-5 % Normal EO% 2.9 LAB L100.2500 0-1 % Normal BASO% 0.3 LAB L100.2550 0.0-0.9 % Normal IM GRAN % 0.200 Result Comment: IG% - Immature Granulocytes (promyelocytes, myelocytes and metamyelocytes) > 1% indicates that a LEFT SHIFT is Present. LAB L100.2620 2.0-7.7 X10 3/uL Normal Absolute Neut 3.1 LAB L100.2720 0.83-4.51 X10 3/ul Normal Absolute Lymph 2.62 Performed By: #### L100.0100 #### [facility] [address] [place], [place], [id number] BASIC METABOLIC Collected: 03/02/2018 Status: F Source: JANNET PROFILE (BMP) 5:19 AM [facility] REPOSITORY TYPE CODE TESTS RESULT OUT OF RANGE REFERENCE UNITS LAB L501.0100 74-106 mg/dL Normal GLU 83 Result Comment: Please note revised GLUCOSE reference range effective 2017. LAB L501.1000 7-18 mg/dL Normal BUN 11 LAB L501.1100 0.55-1.02 mg/dL Normal CREAT,SERUM 0.64 Result Comment: The validity of the calculated GFR AND GFRAA in patients over 70 years has not been determined. Clinical correlation is essential. LAB L501.1110 >60 mL/min Normal EST GFR 99 Result Comment: Non- GFR Calc LAB L501.1115 >60 mL/min Normal EST GFR - AA 120 Result Comment: GFR Calc LAB L501.1255 ml/min Normal Estimated CRCL 69.31 LAB L501.1300 10-20 RATIO Normal BUN/CRE 17.2 LAB L501.2200 8.5-10 mg/dL Low .1 CA 7.8 LAB L501.5300 136-14 mmol/L Normal 5 NA 142 LAB L501.5600 3.5-5. mmol/L Normal 1 K 4.2 LAB L501.5900 98-107 mmol/L High CL 110 LAB L501.6100 21.0-3 mmol/L Normal 2.0 CO2 26.0 LAB L501.6200 5-15 Normal GAP 6 Performed By: #### L500.2500, L500.4100 #### [facility] [address] [place], [place], [id number] LIPID PROFILE Collected: 03/02/2018 Status: F Source: JANNET 5:19 AM [facility] REPOSITORY TYPE CODE TESTS RESULT OUT OF RANGE REFERENCE UNITS LAB L501.4900 200 mg/dL Normal CHOL 165 Result Comment: <200 mg/dL Desirable 200-240 mg/dL Borderline >240 mg/dL High Risk LAB L501.5000 mg/dL Normal TRIG 150 Result Comment: The drugs N-Acetylcysteine and Metamizole may falsely depress this assay. Serum Triglycerides Reference Interval Normal <150 mg/dL Borderline high 150 - 199 mg/dL High 200 - 499 mg/dL Very High > or = 500 mg/dL LAB L501.6400 mg/dL Normal HDL 42 Result Comment: The drugs N-Acetylcysteine and Metamizole may falsely depress this assay. Reference Range HDL <40 mg/dL Low HDL Cholesterol HDL >or= 60 mg/dL High HDL Cholesterol LAB L501.6500 0-130 mg/dL Normal LDL 93 LAB L501.6600 5-40 mg/dL Normal VLDL 30 Performed By: #### L500.2500, L500.4100 #### [facility] [address] [place], [address] URINE DRUG SCREEN Collected: 03/02/2018 Status: F Source: JANNET (KaboodleTA) 1:25 AM [facility] REPOSITORY TYPE CODE TESTS RESULT OUT OF RANGE REFERENCE UNITS LAB L505.0075 TO BE Normal CONFIRMED Result Comment: CONFIRMATORY TESTING FOR ALL POSITIVE URINE DRUG SCREEN RESULTS WILL ONLY BE SENT OUT UPON PHYSICIAN ORDER. VISTA Urine Drug Screen methods provide only preliminary analytical test results. A more specific alternate chemical method must be used in order to obtain a confirmed analytical result. Gas chromatography/mass spectrometery (GC/MS) is the preferred confirmatory method. Clinical consideration and professional judgement should be applied to any drug of abuse test result, particularly when preliminary positive results are used. URINE TCA TESTING MUST BE ORDERED SEPARATELY. USE TEST MNEMONIC: [facility] LAB L505.5005 VISTA UDS PH 6 Normal LAB L505.5015 <1000 ng/mL AMPHETAMINES Normal NEGATIVE LAB L505.5025 < 200 ng/mL BARBITIURATES Normal NEGATIVE LAB L505.5035 < 200 ng/mL BENZODIAZIPINE Normal NEGATIVE LAB L505.5045 < 300 ng/mL COCAINE Normal NEGATIVE LAB L505.5055 < 500 High ng/mL ECSTACY POSITIVE LAB L505.5065 < 300 ng/mL METHADONE Normal NEGATIVE LAB L505.5075 < 300 High ng/mL OPIATES POSITIVE LAB L505.5085 < 25 ng/mL PCP Normal NEGATIVE LAB L505.5095 < 50 High ng/mL THC POSITIVE Performed By: #### L505.5000 #### [facility] [address] [place], [address] URINALYSIS, COMPLETE Collected: 03/02/2018 Status: F Source: PATERSON 1:25 AM [facility] REPOSITORY Order Comment: How was Urine Obtained? HSE COORDINATOR TO SPECIFY TYPE CODE TESTS RESULT OUT OF RANGE REFERENCE UNITS LAB L400.3000 Yellow COLOR Normal Yellow LAB L400.3050 Clear Normal CLARITY Clear LAB L400.3200 Normal mg/dl Normal GLUCOSE, UR Normal LAB L400.3300 Negative mg/dL Normal BILIRUBIN URINE Negative LAB L400.3400 Negative mg/dl Normal KETONE UR Negative LAB L400.3465 1.002-1.030 Normal SP.GR. DIPSTX 1.010 LAB L400.3550 5.0 - 8.0 pH UR Normal 6.0 LAB L400.3600 Negative mg/dl PROT Normal DIPSTX Negative LAB L400.3700 Normal mg/dl Normal UROBILI Normal LAB L400.3750 Negative High NITRITE UR Positive LAB L400.3780 Negative /ul Normal OCCULT BLOOD-UR Negative LAB L400.3800 Negative /ul High LEUK ESTERASE 500 LAB L400.4050 0-5 /hpf WBC Normal 0-5 SEEN LAB L400.4100 0-5 /hpf 0 Normal RBC-UA SEEN LAB L400.4150 5-10 /hpf SQUAM 0 Normal EPI SEEN LAB L400.4300 None Seen /hpf 2+ Normal BACTERIA LAB L400.4350 <or=2+ /hpf 0 Normal MUCUS, URINE SEEN Performed By: #### L400.0001 #### [facility] [address], [address] HISTORY AND PHYSICAL Observed: 03/01/2018 Status: F Source: JANNET EXAM 4:32 PM [facility] REPOSITORY [facility] Medical Records Department [address] [place] [address] History and Physical 03/01/18 1520 MR#: [id number] Acct: [id number] Name: MARTINA LONGO Rep #: [id number] : 1950 67 From: Carmen Mahmood PCP: Anjelica Salguero NP Status: ADM LIZET Y Location: [place] [address] Problem List (1) Migraines Status: Chronic Qualifiers: Migraine type: unspecified Status migrainosus presence: without status migrainosus Intractability: not intractable Qualified Code(s): G43.909 - Migraine, unspecified, not intractable, without status migrainosus (2) Hypothyroidism Status: Chronic Qualifiers: Hypothyroidism type: unspecified Qualified Code(s): E03.9 - Hypothyroidism, unspecified (3) Diabetes mellitus, type II Status: Chronic Qualifiers: Diabetes mellitus senior care insulin use: without long term care pharmacist use Diabetes mellitus complication status: with unspecified complications Qualified Code(s): E11.8 - Type 2 diabetes mellitus with unspecified complications (4) Psoriatic arthritis Status: Chronic (5) GERD (gastroesophageal reflux disease) Status: Chronic Qualifiers: Esophagitis presence: esophagitis presence not specified Qualified Code(s): K21.9 - Gastro-esophageal reflux disease without esophagitis (6) Fibromyalgia Status: Chronic (7) Mitral valve prolapse Status: Chronic (8) Hypertension Status: Chronic Qualifiers: Hypertension type: essential hypertension Qualified Code(s): I10 - Essential (primary) hypertension History of Present Illness Date of Admission: 03/01/18 Chief Complaint: Migraine, L sided paresthesias The patient is a 67 y/o F w/ PMHx: HTN, Obesity, Psoriatic Arthritis, Hypothyroidism w/ recent hyperthyroidism secondary to overtreatment w/ decreasing regimen 3 weeks prior, Chronic Pain Syndrome following w/ Dr. Alvarez, Chronic Migraines w/ prior severe complex migraines w/ ongoing botox injections and aimovig monthly injections, Anxiety and Depression, GERD who presents to the [facility] ED on 03/01/18 with history of onset L sided paresthesias and weakness at the PCP office w/ referral to the ED for evaluation. In the ED she additionally notes onset L sided top of her head/parietal region throbbing headache w/ light sensitivity but no sound sensitivity. She has had a history of complex migraines. In the ED work-up included T 98.1, heart rate 84, BP 150/70, respiratory rate 16, 95% on room air, unremarkable CBC, unremarkable coags, BMP unremarkable, trop <0.015, TSH 0.02, CT head w/ chronic involutional changes of the brain. In the ED patient administered morphine and zofran. Past Medical History Past Medical History (Chronic Problems): Chronic Problems (Last Reviewed 05/31/17 @ 14:32 by Henrietta Corbett) Migraines (Chronic) Hypothyroidism (Chronic) Diabetes mellitus, type II (Chronic) Psoriatic arthritis (Chronic) GERD (gastroesophageal reflux disease) (Chronic) Fibromyalgia (Chronic) Mitral valve prolapse (Chronic) Hypertension (Chronic) Medical History: Medical History (Last Reviewed 05/31/17 @ 14:32 by Henrietta Corbett) Palpitations (Acute) R00.2 SOB (shortness of breath) (Acute) R06.02 Mitral valve prolapse (Chronic) I34.1 Hypertension (Chronic) I10 Fatigue (Acute) R53.83 Chest pain (Acute) R07.9 Chronic pain G89.29 Fibromyalgia M79.7 GERD (gastroesophageal reflux disease) K21.9 Hiatal hernia K44.9 Hypothyroidism E03.9 Osteopenia M85.80 Osteoporosis M81.0 Psoriatic arthritis L40.50 Type 2 diabetes mellitus E11.9 Chronic pain (Inactive) G89.29 Head ache (Inactive) R51 Hypothyroidism (Inactive) E03.9 Psoriatic arthritis (Inactive) L40.50 Allergies amoxicillin trihydrate [From Augmentin] Allergy (Verified 03/01/18 12:55) Shortness of breath ITCHING, SWELLING, HIVES aspirin Allergy (Verified 03/01/18 12:55) Anaphylaxis atropine sulfate [From Lomotil] Allergy (Verified 03/01/18 12:55) Itching SHORTNESS OF BREATH, HIVES cefixime [From Suprax] Allergy (Verified 03/01/18 12:55) Itching SHORTNESS OF BREATH, HIVES ceftriaxone sodium [From Rocephin] Allergy (Verified 03/01/18 12:55) Itching SHORTNESS OF BREATH, HIVES cephalexin monohydrate [From Keflex] Allergy (Verified 03/01/18 12:55) Itching SHORTNESS OF BREATH, HIVES ciprofloxacin [From Cipro] Allergy (Verified 03/01/18 12:55) Shortness of breath ciprofloxacin HCl [From Cipro] Allergy (Verified 03/01/18 12:55) Shortness of breath clindamycin Allergy (Verified 03/01/18 12:55) Itching HIVES, SHORTNESS OF BREATH diphenoxylate HCl [From Lomotil] Allergy (Verified 03/01/18 12:55) Itching SHORTNESS OF BREATH, HIVES gentamicin [Gentamicin] Allergy (Verified 03/01/18 12:55) Itching SHORTNESS OF BREATH, HIVES hydromorphone HCl [From Exalgo ER] Allergy (Verified 03/01/18 12:55) Itching SHORTNESS OF BREATH, HIVES metoclopramide HCl [From Reglan] Allergy (Verified 03/01/18 12:55) Anaphylaxis Penicillins [PCN] Allergy (Verified 03/01/18 12:55) Itching SHORTNESS OF BREATH, HIVES phenazopyridine HCl [From Pyridium] Allergy (Verified 03/01/18 12:55) Itching SHORTNESS OF BREATH, HIVES potassium clavulanate [From Augmentin] Allergy (Verified 03/01/18 12:55) Shortness of breath ITCHING, SWELLING, HIVES povidone-iodine [From Betadine] Allergy (Verified 03/01/18 12:55) Itching IF INJESTED propoxyphene HCl [From Darvon] Allergy (Verified 03/01/18 12:55) Itching SHORTNESS OF BREATH, HIVES red dye Allergy (Verified 03/01/18 12:55) Itching SHORTNESS OF BREATH, HIVES soap [From Betadine] Allergy (Verified 03/01/18 12:55) Itching IF INJESTED Sulfa (Sulfonamide Antibiotics) Allergy (Verified 03/01/18 12:55) Itching SHORTNESS OF BREATH, HIVES adhesive tape Adverse Reaction (Severe, Verified 03/01/18 12:55) skin peels clarithromycin [From Biaxin] Adverse Reaction (Severe, Verified 03/01/18 12:55) Vomiting ketorolac tromethamine [From Toradol] Adverse Reaction (Severe, Verified 03/01/18 12:55) Vomiting itching verapamil [Verapamil] Adverse Reaction (Severe, Verified 03/01/18 12:55) Other 3RD DEGREE HEART BLOCK azithromycin Adverse Reaction (Intermediate, Verified 03/01/18 12:55) vomiting iodine Adverse Reaction (Unknown, Verified 03/01/18 12:55) Unknown levofloxacin [From Levaquin] Adverse Reaction (Unknown, Verified 03/01/18 12:55) Unknown phenazopyridine [From Pyridium] Adverse Reaction (Unknown, Verified 03/01/18 12:55) Unknown carbamazepine [From Tegretol] Adverse Reaction (Verified 03/01/18 12:55) Unknown duloxetine HCl [From Cymbalta] Adverse Reaction (Verified 03/01/18 12:55) Unknown gabapentin [From Neurontin] Adverse Reaction (Verified 03/01/18 12:55) Other stomach pain, peripheral edema guaifenesin [From Entex T] Adverse Reaction (Verified 03/01/18 12:55) Vomiting TACHYCARDIA midazolam HCl [From Versed] Adverse Reaction (Verified 03/01/18 12:55) Other NO AFFECT-OKAY WITH DIPROVAN morphine Adverse Reaction (Verified 03/01/18 12:55) Other INSOMNIA, HALLUCINATIONS phenobarbital Adverse Reaction (Verified 03/01/18 12:55) Other PERODOXICAL REACTION pseudoephedrine HCl [From Entex T] Adverse Reaction (Verified 03/01/18 12:55) Vomiting TACHYCARDIA quetiapine fumarate [From Seroquel] Adverse Reaction (Verified 03/01/18 12:55) Other dystonia C-CLOR Allergy (Uncoded 10/30/13 23:22) Shortness of breath CAT SCAN DYE Allergy (Uncoded 10/30/13 23:22) Anaphylaxis CIPRO Allergy (Uncoded 10/30/13 23:22) Itching SHORTNESS OF BREATH, HIVES STERIODS Allergy (Uncoded 10/30/13 23:22) Other TRIGGERED ADDISONS DISEASE TAPE Adverse Reaction (Uncoded 10/30/13 23:22) Other SKIN PEELS XOPONEX Adverse Reaction (Uncoded 10/30/13 23:22) Other DISTONIA Home Medications: Ambulatory Orders Medication Instructions Recorded cholecalciferol (vitamin D3) 2,000 2,000 unit PO QDAY cap 05/30/17 unit capsule cyclobenzaprine 10 mg tablet 10 mg PO HS tab 05/30/17 Surgical History: Surgical History (Last Reviewed 05/31/17 @ 14:32 by Henrietta Corbett) History of cholecystectomy Z98.890, Z90.49 History of total hysterectomy Z98.890, Z90.710 Hx of appendectomy Z98.890, Z90.49 Surgical History: appendectomy, cholecystectomy, hysterectomy Psychiatric History: Anxiety, Depression 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 Lives: Spouse/ Significant Other Smoking Status: Never smoker Tobacco Use: Non-smoker Alcohol: None Drugs: None - *Family History Maternal Family History: Family History (Last Reviewed 05/31/17 @ 14:32 by Henrietta Corbett) Father CAD (coronary artery disease) Mother CVA (cerebral vascular accident) Grandfather Heart disease Grandmother Heart disease Uncle Sudden cardiac , Onset Age: 30 History Items: Stroke Paternal Family History: Family History (Last Reviewed 05/31/17 @ 14:32 by Henrietta Corbett) Father CAD (coronary artery disease) Mother CVA (cerebral vascular accident) Grandfather Heart disease Grandmother Heart disease Uncle Sudden cardiac , Onset Age: 30 History Items: High Cholesterol, Heart Disease, Hypertension Review of Systems Constitutional: Reports: Malaise, Weakness, Fatigue. Denies: Chills, Fever, Weight Change HEENT: Reports: Head Aches. Denies: Sinus Congestion, Sinus Drainage Cardiovascular: Denies: Chest Pain, Palpitations Respiratory: Denies: Cough, Shortness of breath at rest, Sputum production Gastrointestinal: Denies: Abdominal Pain, Nausea, Vomiting Genitourinary: Denies: Dysuria Musculoskeletal: Reports: Joint Pain. Denies: Joint Tenderness Skin: Denies: Rash, Wounds Neurological: Reports: Focal weakness, Numbness, Tingling Psychiatric: Reports: Anxiety, Depression. Denies: Homicidal Ideations, Suicidal Ideations Hematologic/ Lymphatic: Denies: Easy Bruising, Easy Bleeding VTE Information - Inpt Only VTE Present on Admission: No VTE Mechan Device Prophylaxis: SCD's VTE Pharm Prophylaxis ordered?: Yes Patient Problems: Active and Suspected Problems (Last Reviewed 05/31/17 @ 14:32 by Henrietta Corbett) Left-sided weakness (Acute) - Physical Exam Vital Signs Temp Pulse Resp BP Pulse Ox 98.1 F 80 16 132/60 H 95 03/01/18 12:50 03/01/18 15:15 03/01/18 15:15 03/01/18 15:15 03/01/18 15:15 Oxygen Flow Rate (L/min) 2 Oxygen Delivery Method Room Air Weight: 178 lb Body Mass Index (BMI) 32.5 Finger Stick Blood Glucose 95 Laboratory Tests Past 24 Hrs WBC RBC Hgb Hct MCV MCH MCHC RDW RDW Differential Plt Count MPV Immature Gran % (Auto) Neut % (Auto) Assessment/Plan All Active Problems (Last Reviewed 05/31/17 @ 14:32 by Henrietta Corbett) Left-sided weakness (Acute) Palpitations (Acute) SOB (shortness of breath) (Acute) Fatigue (Acute) Chest pain (Acute) The patient is a 67 y/o F w/ PMHx: HTN, Obesity, Psoriatic Arthritis, Hypothyroidism w/ recent hyperthyroidism secondary to overtreatment w/ decreasing regimen 3 weeks prior, Chronic Pain Syndrome following w/ Dr. Alvarez, Chronic Migraines w/ prior severe complex migraines w/ ongoing botox injections and aimovig monthly injections, Anxiety and Depression, GERD who presents to the [facility] ED on 03/01/18 with history of onset L sided paresthesias and weakness at the PCP office w/ referral to the ED for evaluation. (1) L sided Paresthesias concerning for Possibly Complex Migraine versus Conversion Disorder versus TIA/CVA: In the ED work-up included T 98.1, heart rate 84, BP 150/70, respiratory rate 16, 95% on room air, unremarkable CBC, unremarkable coags, BMP unremarkable, trop <0.015, TSH 0.02, CT head w/ chronic involutional changes of the brain. Will admit to PCU, will obtain MRI Brain, MRA Head and Neck, defer ECHO as recently performed, PT/OT/Speech/Nutrition evaluation per protocol. Neurology consulted, concern for conversion, recommend imaging. Will continue home HTN regimen, asa severe allergy, will defer plavix trial, defer statin until AM FLP, fall precautions. Mag, TSH as noted low with pending FT4 and planned decrease home synthroid regimen. Discussed with Neurology and will have PRN toradol only w/ PRN nausea regimen as patient notes intolerance with nausea, emesis. Defer any further increased narcotic regimen. UDS requested. (2) Chronic Migraines: Patient w/ prior severe complex migraines w/ ongoing botox injections and aimovig monthly injections. (3) Hypothyroidism with recent low TSH (Hyperthyroid, Iatrogenic): Patient states approximately 3 weeks prior she had undetectable TSH with recently decreased Synthroid regimen, TSH repeat low will obtain free T4 and likely continue decrease Synthroid regimen. (4) Chronic Pain Syndrome with psoriatic arthritis: Following w/ Dr. Alvarez, continue morphine sulfate, clonazepam and cyclobenzaprine home regimen regimen, urine drug screen requested, mildly lethargic in the ED, PT, OT, CM as noted for discharge planning. (5) Hypertension: Continue home regimen including metoprolol, PRN hydralazine. (6) Hyperlipidemia: FLP in a.m., no longer on statin therapy but was on prior and has no history of reaction per her report. (7) Allergic rhinitis: Continue home fluticasone regimen. (8) Obesity: Weight loss and lifestyle changes encouraged. (9) DVT Prophylaxis: SCDs, lovenox. Code Visit OBSV E AND M: [id number] Initial observation care L3 03/01/18 1632 <Electronically signed by Carmen Mahmood > Date Carmen Mahmood Cosigner Signature: Date (if applicable) CC: Anjelica Salguero NP; Carmen Mahmood Signed BRAIN WITHOUT Observed: 03/01/2018 Status: F Source: PATERSON CONTRAST 4:11 PM [facility] REPOSITORY [facility] Imaging Services [address] [place] [address] Brain without Contrast MR#: [id number] Acct: [id number] Name: MARTINA LONGO Rep #: [id number] : 1950 F 67 From: Dillon Stevens MD PCP: Anjelica Salguero NP Status: ADM LIZET Study: Brain without Contrast Date of Exam: 03/01/18 Exam# [id number] Ordering Dr: Bhavana Earl MD STUDY: MRI BRAIN WITHOUT CONTRAST REASON FOR EXAM: Female, 67 years old. CVA TECHNIQUE: Standardized multiplanar fat and water weighted pulse sequences were obtained. COMPARISON: CT of the brain March 01, 2018 MRI of the brain on June 09, 2014 FINDINGS: Mild atrophy and periventricular white matter ischemic changes without mass effect or restricted diffusion.. Normal bilateral basal ganglia. Normal thalami. There is no extra-axial fluid accumulation. Normal flow voids within the major intracranial circulation suggesting patency by spin echo criteria. Normal sella turcica, pituitary gland, infundibular stalk, optic chiasm and hypothalamus. Normal tectal plate and pineal gland. Normal midbrain, [place] and medulla. Normal cerebellum. Normal basal cisterns. Normal bilateral temporal bones. Normal bilateral internal auditory canals. No demonstrated orbital abnormality, within the constraints of a routine brain study. Mild mucosal thickening of left maxillary sinus.. Normal calvarium and skull base. Normal visualized soft tissue structures. Normal visualized upper cervical spine. MRI/Brain without Contrast IMPRESSION: Mild periventricular white matter ischemic changes without evidence for acute infarct. Electronically Signed: Dillon Stevens MD at 19:34 EST , Service support , CC: Anjelica Salguero NP; Agustin Earl MD Overedger: Signed MRA NECK WITH AND W/O Observed: 03/01/2018 Status: F Source: PATERSON CONTRAST 4:11 PM [facility] REPOSITORY [facility] Imaging Services [address] [place] [address] MRA Neck WITH and W/O Contrast MR#: [id number] Acct: [id number] Name: MARTINA LONGO Rep #: [id number] : 1950 F 67 From: Nimco Elizabeth MD PCP: Anjelica Salguero NP Status: ADM LIZET Study: MRA Neck WITH and W/O Contrast Date of Exam: 03/01/18 Exam# [id number] Ordering Dr: Bhavana Earl MD STUDY: MRA NECK WITH AND WITHOUT CONTRAST REASON FOR EXAM: Female, 67 years old. CVA. Weakness. TECHNIQUE: 3-D paga-jh-nxzxyl (TOF) imaging was performed in an 1.5 T MRI scanner. 9 ml of Gadavist was administered for the contrast enhanced images. COMPARISON: None. FINDINGS: RIGHT CAROTID ARTERIES: Normal right common carotid artery (CCA). Normal right common carotid bulb. Normal origin of the right internal carotid (ICA) artery without a significant stenosis. Normal visualized cervical portion of the right internal carotid artery. Normal origin of the right external carotid artery (ECA). LEFT CAROTID ARTERIES: Normal left common carotid artery (CCA). Normal left common carotid bulb. Normal origin of the left internal carotid (ICA) artery without a significant stenosis. Normal visualized cervical portion of the left internal carotid artery. Normal origin of the left external carotid artery (ECA). VERTEBRAL ARTERIES: Normal antegrade flow within the bilateral vertebral artery without a significant stenosis. There is a mild stenosis at the origin of the left vertebral artery. MRI/MRA Neck WITH and W/O Contrast IMPRESSION: Normal bilateral cervical carotid arteries. Mild stenosis at the origin of the left vertebral artery. Vertebral arteries are otherwise unremarkable. Electronically Signed: Nimco Elizabeth MD at 20:33 EST Tel , Service support , CC: Anjelica Salguero NP; Agustin Earl MD Overedger: Signed SPINE CERVICAL Observed: 03/01/2018 Status: F Source: JANNET (ROUTINE) 4:11 PM [facility] REPOSITORY [facility] Imaging Services [address] [place] [address] Spine Cervical (Routine) MR#: [id number] Acct: [id number] Name: MARTINA LONGO Rep #: [id number] : 1950 F 67 From: Dillon Stevens MD PCP: Anjelica Salguero NP Status: ADM LIZET Study: Spine Cervical (Routine) Date of Exam: 03/01/18 Exam# [id number] Ordering Dr: Bhavana Earl MD STUDY: MRI CERVICAL SPINE WITHOUT CONTRAST REASON FOR EXAM: Female, 67 years old. Weakness of the left body TECHNIQUE: Standardized fat and water weighted pulse sequences were obtained in the sagittal and axial planes. COMPARISON: None FINDINGS: Normal foramen magnum and brainstem-cervical cord junction. Normal craniovertebral junction. Normal anterior atlantoaxial articulation. Normal odontoid process. Mildly decreased cervical lordosis. Normal vertebral bodies and posterior osseous elements. C2-3: Normal endplates. Normal disc height, signal and morphology. Normal central canal and intervertebral neural foramina. C3-4: Normal endplates. Normal disc height, signal and small left posterolateral/foraminal disc osteophyte protrusion.. Normal central canal. Moderate to severe left neuroforaminal stenosis. C4-5: Normal endplates. Normal disc height, signal and tiny right paracentral disc protrusion. Normal central canal . Mild to moderate left neuroforaminal stenosis secondary to bony hypertrophy C5-6: Narrowed disc space and endplate spurring. Small central osteophyte protrusion. There is minor central canal narrowing and moderate left neuroforaminal stenosis secondary to bony hypertrophy C6-7: Narrowed disc space and endplate spurring with small right posterolateral disc protrusion. Mild narrowing of the central canal. Mild left neuroforaminal stenosis.. There is a small perineural cyst in the left nerve root foramen C7-T1: Normal endplates. Normal disc height, signal and morphology. Normal central canal. There is a small perineural cysts within the neural foramina bilaterally. Normal cervical cord. Normal visualized soft tissue structures. MRI/Spine Cervical (Routine) IMPRESSION: No evidence for acute fracture or subluxation. Advanced spondylosis and multilevel spinal stenosis secondary to disc disease and bony hypertrophy Electronically Signed: Dillon Stevens MD at 21:16 EST , Service support , CC: Anjelica Salguero NP; Agustin Earl MD Overedger: Signed MRA HEAD ONLY WITHOUT Observed: 03/01/2018 Status: F Source: PATERSON CONTRAST 4:11 PM [facility] REPOSITORY [facility] Imaging Services [address] [place] [address] MRA Head ONLY without Contrast MR#: [id number] Acct: [id number] Name: MARTINA LONGO Rep #: [id number] : 1950 F 67 From: Pepe Blue MD PCP: Anjelica Salguero NP Status: ADM LIZET Study: MRA Head ONLY without Contrast Date of Exam: 03/01/18 Exam# [id number] Ordering Dr: Bhavana Earl MD STUDY: MRA OF THE HEAD WITHOUT CONTRAST REASON FOR EXAM: Female, 67 years old. CVA and weakness left body. Numbness and tingling left face and body. TECHNIQUE: 3-D rwgm-bs-doykda (TOF) imaging was performed with MIPs. The study was performed unenhanced. COMPARISON: MR brain March 01, 2018 and MR a brain June 09, 2014 FINDINGS: Normal bilateral petrous carotid arteries. Normal right cavernous carotid artery with a normal supraclinoid bifurcation. Normal left cavernous carotid artery with a normal supraclinoid bifurcation. Normal right A1 segments of the anterior cerebral artery. Normal left A1 segments of the anterior cerebral artery. Normal intact anterior communicating artery (ACOM). Normal bilateral A2 segments of the anterior cerebral arteries. Normal right M1 and M2 segments of the middle cerebral arteries, with a normal M1 bifurcation. Normal left M1 and M2 segments of the middle cerebral arteries, with a normal M1 bifurcation. Normal right posterior communicating artery (PCOM). Normal left posterior communicating artery (PCOM). Normal bilateral vertebral arteries. Normal basilar artery with a normal basilar bifurcation. The visualized bilateral superior cerebellar (SCA) arteries are normal. Normal bilateral P1, P2 and visualized P3 segments of the posterior cerebral arteries. There is no demonstrated aneurysm of the [place] of [place]. There is no major vessel occlusion or hemodynamically significant stenosis. There is no demonstrated abnormality of the visualized brain. MRI/MRA Head ONLY without Contrast IMPRESSION: Normal MRA of the head Electronically Signed: Pepe Blue MD at 22:47 EST , Service support , CC: Anjelica Salguero NP; Agustin Earl MD Overedger: Signed EMERGENCY DEPARTMENT Observed: 03/01/2018 Status: F Source: PATERSON SUMMARY 2:37 PM [facility] REPOSITORY [facility] Medical Records Department [address] [place] [address] Emergency Department Summary 03/01/18 1431 MR#: [id number] Acct: [id number] Name: MARTINA LONGO Rep #: [id number] : 1950 67 From: Sascha Addison MD PCP: Anjelica Salguero NP Status: REG ER - ER Visit Summary Date of Service: 03/01/18 Chief Complaint: Increased weakness and numbness left side History of Present Illness: The patient is a 67 F who has multiple medical problems which include GERD, type 2 diabetes, hypertension, fiber myalgia, hiatal hernia and hypothyroidism was sent from primary care provider's office for evaluation of numbness left side and weakness left side. Onset approximately 2 weeks ago. Worse apparently today. She has had problems with speech. She does report headache. She does admit to depression and is on antidepressants. She complains of binocular blurred vision. She denies fever, chills night sweats. She denies ear pain, ringing or ears decreased hearing. She denies rhinorrhea, congestion postnasal drainage or sore throat. She denies cardiac or respiratory symptoms. She denies abdominal pain, nausea, vomiting diarrhea. She denies urologic symptoms. She denies myalgias arthralgias or back pain. [...] side with slurring of her words. She answered Brenda for the month. NIH is 10. Test Results: CT reveals chronic involutional changes. EKG sinus rhythm rate of 79 and completely normal. CBC normal. Basic metabolic panel normal. INR PTT normal. Troponin less than 0.015. TSH is low at 0.02.. Emergency Department Course and Treatment: Patient with neurologic symptoms over the past 2 weeks. This may represent MS, atypical stroke, conversion reaction, depression or spinal cord lesion. Stroke workup was undertaken. Since she has history of hypothyroidism will obtain TSH in the event this is hypothyroidism, atypical presentation. Treatment Plan: PCU observation status further testing and delineate the cause of her symptoms. Disposition: PCU Impression: 1. Paresthesia and weakness left side uncertain etiology 2. History of type 2 diabetes 3. History of hypertension 4. History of hypothyroidism with low TSH 5. History of GERD 6. History of fibromyalgia 7. History of depression This note was generated with LookBooker dictation software. It may contain incorrect words, spelling, and punctuation that were not noted in review of the chart prior to signing ED Disposition - Plan for ED Patient: Chief Complaint: Numb/Ting Referrals: Anjelica Salguero, FINANCIAL REPORTING ADVISOR-C [Primary Care Provider] - What to do if you have Problems For any increased pain, shortness of breath, bleeding, nausea or vomiting, chest pain, or any unexpected problems, contact your Primary Care Provider. Call [facility] ([phone]) or report to the closest Emergency Room. Call 911 if necessary. 03/01/18 5277 <Electronically signed by Sascha Addison MD> Date Sascha Addison MD Cosigner Signature (If Indicated): Date CC: Anjelica Gagandeepidalia JADEN BRAIN/HEAD WITHOUT Observed: 03/01/2018 Status: F Source: JANNET CONTRAST 1:20 PM [facility] REPOSITORY [facility] Imaging Services [address] [place] [address] Brain/Head without Contrast MR#: [id number] Acct: [id number] Name: MARTINA LONGO Rep #: [id number] : 1950 F 67 From: Xu Davila MD PCP: Anjelica Salguero NP Status: REG ER Study: Brain/Head without Contrast Date of Exam: 03/01/18 Exam# [id number] Ordering Dr: Sascha Addison MD STUDY: CT BRAIN WITHOUT CONTRAST REASON FOR EXAM: Female, 67 years old. Worsening left-sided numbness and tingling for 2 weeks. Slurred speech and facial droop. RADIATION DOSAGE (If Supplied By Facility): CTDIvol = ( 60.81 ) mGy, DLP = ( 998.67 ) mGycm TECHNIQUE: Transaxial CT imaging of the brain was performed without administration of intravenous contrast material. Individualized dose optimization techniques were used for this CT. COMPARISON: Comparison is made with prior study dated June 09, 2014. FINDINGS: Normal soft tissue structures. Normal calvarium. There is mild cerebral atrophy with widening of the extra- axial spaces and ventricular dilatation. Normal white matter tracts of the cerebral hemispheres. Normal basal ganglia and thalami. Normal brainstem. Normal cerebellum. There is no intracranial hemorrhage. There are no findings of an acute ischemic infarction. Normal visualized paranasal sinuses. CT/Brain/Head without Contrast IMPRESSION: Chronic involutional changes of the brain. Electronically Signed: Xu Davila MD at 14:04 EST Tel [phone], Service support , CC: Anjelica Salguero FINANCIAL REPORTING ADVISOR; Sascha Addison MD Overedger: Signed CBC W/DIFF, AUTOMATED Collected: 03/01/2018 Status: F Source: PATERSON 12:58 PM [facility] REPOSITORY TYPE CODE TESTS RESULT OUT OF RANGE REFERENCE UNITS LAB L100.1000 4.4-11.0 K/mm3 Normal WBC 9.1 LAB L100.1200 4.2-5.4 M/mm3 Normal RBC 4.86 LAB L100.1300 12.0-15.0 g/dl High HGB 15.5 LAB L100.1400 37-47 % Normal HCT 46.1 LAB L100.1500 81-99 fL Normal MCV 94.9 LAB L100.1600 27.0-32.0 pg Normal MCH 31.9 LAB L100.1700 32-36 g/gl Normal MCHC 33.6 LAB L100.1810 11.6-14.6 % Normal RDW CV 12.7 LAB L100.1820 35.1-43.9 fl Normal RDW SD 43.0 LAB L100.1900 150-450 K/mm3 Normal PLT 232 LAB L100.2000 6.2-12.0 fl Normal MPV 9.8 LAB L100.2100 47-70 % Normal NEUT% 58.6 LAB L100.2200 19-41 % Normal LY% 31.7 LAB L100.2300 0-10 % Normal MONO% 7.1 LAB L100.2400 0-5 % Normal EO% 2.0 LAB L100.2500 0-1 % Normal BASO% 0.4 LAB L100.2550 0.0-0.9 % Normal IM GRAN % 0.200 Result Comment: IG% - Immature Granulocytes (promyelocytes, myelocytes and metamyelocytes) > 1% indicates that a LEFT SHIFT is Present. LAB L100.2620 2.0-7.7 X10 3/uL Normal Absolute Neut 5.4 LAB L100.2720 0.83-4.51 X10 3/ul Normal Absolute Lymph 2.90 Performed By: #### L100.0100 #### [facility] [address] [place], [address] PROTHROMBIN TIME W/INR Collected: 03/01/2018 Status: F Source: JANNET 12:58 PM [facility] REPOSITORY TYPE CODE TESTS RESULT OUT OF RANGE REFERENCE UNITS LAB L300.4150 11.7-14.9 SECONDS Normal PROTIME 12.8 LAB L300.4200 Normal INR 1.0 Performed By: #### L300.3900, L300.4310 #### [facility] [address] [place], [address] PARTIAL THROMBOPLAST Collected: 03/01/2018 Status: F Source: JANNET TIME 12:58 PM [facility] REPOSITORY TYPE CODE TESTS RESULT OUT OF RANGE REFERENCE UNITS LAB L300.4310 24.1-36.2 Seconds Normal PTT 26.9 Performed By: #### L300.3900, L300.4310 #### [facility] [address] [place], [address] BASIC METABOLIC Collected: 03/01/2018 Status: F Source: JANNET PROFILE (BMP) 12:58 PM [facility] REPOSITORY TYPE CODE TESTS RESULT OUT OF RANGE REFERENCE UNITS LAB L501.0100 74-106 mg/dL Normal GLU 84 Result Comment: Please note revised GLUCOSE reference range effective 2017. LAB L501.1000 7-18 mg/dL Normal BUN 14 LAB L501.1100 0.55-1.02 mg/dL Normal CREAT,SERUM 0.76 Result Comment: The validity of the calculated GFR AND GFRAA in patients over 70 years has not been determined. Clinical correlation is essential. LAB L501.1110 >60 mL/min Normal EST GFR 81 Result Comment: Non- GFR Calc LAB L501.1115 >60 mL/min Normal EST GFR - AA 98 Result Comment: GFR Calc LAB L501.1255 ml/min Normal Estimated CRCL 58.37 LAB L501.1300 10-20 RATIO Normal BUN/CRE 18.5 LAB L501.2200 8.5-10 mg/dL Normal .1 CA 8.7 LAB L501.5300 136-14 mmol/L Normal 5 NA 138 LAB L501.5600 3.5-5. mmol/L Normal 1 K 4.0 LAB L501.5900 98-107 mmol/L Normal CL 105 LAB L501.6100 21.0-3 mmol/L Normal 2.0 CO2 27.0 LAB L501.6200 5-15 Normal GAP 6 Performed By: #### L500.2500, L501.4010 #### [facility] [address] [place], [address] TROPONIN-I Collected: 03/01/2018 Status: F Source: PATERSON 12:58 PM [facility] REPOSITORY TYPE CODE TESTS RESULT OUT OF RANGE REFERENCE UNITS LAB L501.4010 <0.045 ng/mL Normal < 0.015 TROPONIN-I Result Comment: TROPONIN-I EXPECTED VALUES <0.045 Negative 0.045 - 0.590 Consistent with Cardiac Damage > OR = 0.600 Critical Value Not every elevated troponin is indicative of MS. These values should be used with clinical judgement in examining the patient's clinical picture for diagnosis. To establish a diagnosis of MS versus myocardial injury, there must be a demonstrated rise and/or fall in the troponin values, in addition to ischemic symptoms, EKG changes, new regional wall motion abnormality, and/or angiographical evidence. PLEASE NOTE: REFERENCE RANGES EDITED 17 Performed By: #### L500.2500, L501.4010 #### [facility] [address] [facility] [id number] THYROID STIM HORMONE Collected: 03/01/2018 Status: F Source: PATERSON (TSH) 12:58 PM [facility] REPOSITORY TYPE CODE TESTS RESULT OUT OF RANGE REFERENCE UNITS LAB L501.9520 0.358-3.74 uIU/mL Low TSH 0.02 Performed By: #### L501.9520 #### [facility] [address] [place], [address] T4 FREE DIRECT Collected: 03/01/2018 Status: F Source: PATERSON 12:58 PM [facility] REPOSITORY TYPE CODE TESTS RESULT OUT OF RANGE REFERENCE UNITS LAB L506.0400 0.76-1.46 ng/dL Normal T4 FREE 1.29 DIRECT Performed By: #### L506.0400 #### [facility] [address] [facility], [address] MAGNESIUM Collected: 03/01/2018 Status: F Source: JANNET 12:58 PM [facility] REPOSITORY TYPE CODE TESTS RESULT OUT OF RANGE REFERENCE UNITS LAB L501.5200 1.6-2.6 mg/dL Normal MG 2.1 Performed By: #### L501.5200 #### [facility] [address] [place], [address] HEMOGLOBIN A1C Collected: 03/01/2018 Status: F Source: JANNET 12:58 PM [facility] REPOSITORY TYPE CODE TESTS RESULT OUT OF RANGE REFERENCE UNITS LAB L501.9985 4.2-6.3 % Normal HGB A1C 5.8 Performed By: #### L501.9985 #### [facility] [address], [address] URINE DRUG SCREEN Collected: 09/03/2017 Status: F Source: JANNET (VISTA) 5:10 PM [facility] REPOSITORY Order Comment: List of Drugs Taken or Suspected? . TYPE CODE TESTS RESULT OUT OF RANGE REFERENCE UNITS LAB L505.0075 TO BE Normal CONFIRMED Result Comment: CONFIRMATORY TESTING FOR ALL POSITIVE URINE DRUG SCREEN RESULTS WILL ONLY BE SENT OUT UPON PHYSICIAN ORDER. VISTA Urine Drug Screen methods provide only preliminary analytical test results. A more specific alternate chemical method must be used in order to obtain a confirmed analytical result. Gas chromatography/mass spectrometery (GC/MS) is the preferred confirmatory method. Clinical consideration and professional judgement should be applied to any drug of abuse test result, particularly when preliminary positive results are used. URINE TCA TESTING MUST BE ORDERED SEPARATELY. USE TEST MNEMONIC: [facility] LAB L505.5005 VISTA UDS PH 5 Normal LAB L505.5015 <1000 ng/mL AMPHETAMINES Normal NEGATIVE LAB L505.5025 < 200 ng/mL BARBITIURATES Normal NEGATIVE LAB L505.5035 < 200 ng/mL BENZODIAZIPINE Normal NEGATIVE LAB L505.5045 < 300 ng/mL COCAINE Normal NEGATIVE LAB L505.5055 < 500 High ng/mL ECSTACY POSITIVE LAB L505.5065 < 300 ng/mL METHADONE Normal NEGATIVE LAB L505.5075 < 300 High ng/mL OPIATES POSITIVE LAB L505.5085 < 25 ng/mL PCP Normal NEGATIVE LAB L505.5095 < 50 High ng/mL THC POSITIVE Performed By: #### L505.5000 #### [facility] [address] [place], [address] MISCELLANEOUS LAB Collected: 09/03/2017 Status: F Source: JANNET PROCEDURE 5:10 PM [facility] REPOSITORY Order Comment: Test(s) Ordered: [id number] TYPE CODE TESTS RESULT OUT OF RANGE REFERENCE UNITS LAB L801.1541 Normal [facility] [place] Result Comment: [id number] 6+OXYCODONE-BUND (ng/mL) DRUG RESULT SCREEN CUTOFF ____ Amphetamines,Urine Negative ng/mL 1000 Amphetamine test includes Amphetamine and Methamphetamine. Barbiturates Negative ng/mL 200 Benzodiazepines Negative ng/mL 200 Cannabinoid POSITIVE ng/mL 20 Carboxy THC GC/MS Conf 228 ng/mL 10 Cocaine (Metab) Negative ng/mL 300 Opiates POSITIVE ng/mL 300 Opiates test includes Codeine, Morphine, Hydromorphone, Hydrocodone. Please Note: Confirmation performed by Mass Spectrometry Codeine Negative 300 Morphine Positive Morphine Confirm >3000 ng/mL 300 Hydromorphone Negative 300 Hydrocodone Negative 300 Oxycodone/Oxymorphone,Urine Negative ng/mL 300 Test includes Oxydodone and Oxymorphone. TESTING PERFORMED AT [facility]. ORIGINAL REPORT ON FILE IN LAB CONTAINS ADDITIONAL TEST SITE INFORMATION. Performed By: #### L801.1541 #### [facility] [address] [place], [address] TSH Collected: 08/28/2017 Status: F Source: DONNY [employer] 2:20 PM [facility] REPOSITORY TYPE CODE TESTS RESULT OUT OF RANGE REFERENCE UNITS LAB TSH(LOINC) 0.27-4.20 mcIU/mL Low TSH 0.01 Result Comment: Below normal(expected)range Performed By: #### TSH #### [facility] [address] [place], [place] [address] SCREENING MAMM (CAD), Observed: 08/22/2017 Status: F Source: PATERSON BILAT 3:40 PM [facility] REPOSITORY [facility] Imaging Services [address] [address] SCREENING MAMM (CAD), BILAT MR#: [id number] Acct: [id number] Name: MARTINA LONGO Rep #: [id number] : 1950 F 66 From: Xu Davila MD PCP: Anjelica Salguero NP Status: REG CLI Study: SCREENING MAMM (CAD), BILAT Date of Exam: 08/22/17 Exam# [id number] Ordering Dr: Anjelica Salguero MAMMOGRAPHY - BILATERAL SCREENING REASON FOR EXAM: Female, 66 years old. Routine annual screening examination. PERTINENT HISTORY: Aunt with breast cancer. History of prior bilateral breast implants with removal. TECHNIQUE: Digital bilateral breast shukri (3D mammographic [...] appearing bilateral axillary lymph nodes. No other significant abnormalities are identified. There has been no significant change since the prior study. BI/SCREENING MAMM (CAD), BILAT IMPRESSION: Stable bilateral screening mammogram. Yearly follow-up mammogram recommended. (A) ASSESSMENT CATEGORY: BIRADS Category 2: Benign. A letter regarding these results will be sent to the patient by the facility within 30 days. Approximately 10% of breast cancers are not detected by mammography. A normal mammogram should not delay biopsy of a clinically suspicious abnormality. [id number] Electronically Signed: Xu Davila MD at 9:48 EDT Tel [phone], Service support , CC: Anjelica Salguero NP Overedger: Signed CMP Collected: 06/29/2017 Status: F Source: [facility] 9:28 AM [facility] REPOSITORY TYPE CODE TESTS RESULT OUT OF REFERENCE UNITS RANGE LAB 1547-9 80-115 mg/dL GLUCOSE 103 LAB NA(LOINC) 136-146 mEq/L Sodium Level 142 LAB K(LOINC) 3.5-5.1 mEq/L Potassium Level 4.2 LAB CL(LOINC) 98-107 mEq/L Chloride 104 LAB CO2(LOINC) 23-31 mEq/L CO2 29 LAB EBAL(LOINC mEq/L ) Electrolyte Balance 9.0 LAB BUN(LOINC) 7.0-18.0 mg/dL BUN 10.1 LAB CRE(LOINC) 0.6-1.2 mg/dL Creatinine Lvl (s) 0.8 LAB BC(LOINC) 7-27 ratio BUN/Creatinine 13 Ratio LAB CA(LOINC) 8.4-10.2 mg/dL Calcium Lvl 9.2 LAB PROT(LOINC 6.0-8.3 G/dL ) Total Protein 6.8 LAB ALB(LOINC) 3.4-4.8 G/dL Albumin Level 4.2 LAB GLB(LOINC) G/dL Globulin 2.6 LAB AG(LOINC) 1.1-2.5 ratio A/G Ratio 1.6 LAB BILT(LOINC 0.2-1.0 mg/dL ) Bili Total 0.5 LAB AP(LOINC) 40-135 IU/L Alk Phos 108 LAB AST(LOINC) 10-40 IU/L AST/SGOT 15 LAB ALT(LOINC) 10-35 IU/L ALT/SGPT 16 Performed By: #### CMP, GFR, TSH #### [address] [address] #### VIDH #### [address] [address] .GFR Collected: 06/29/2017 Status: F Source: [facility] 9:28 AM [facility] REPOSITORY TYPE CODE TESTS RESULT OUT OF REFERENCE UNITS RANGE LAB GFRAA(LOINC ml/min/1.73 ) sqm GFR 88 [place] Result Comment: GFR Population mean for , Non- Americans Ages 20-29 = 116 mL/min/1.73 sq.m. Ages 30-39 = 107 mL/min/1.73 sq.m. Ages 40-49 = 99 mL/min/1.73 sq.m. Ages 50-59 = 93 mL/min/1.73 sq.m. Ages 60-69 = 85 mL/min/1.73 sq.m. Ages 70+ = 75 mL/min/1.73 sq.m. Chronic Kidney Disease: Less than 60 mL/min/1.73 square meters End Stage Renal Disease: Less than 15 mL/min/1.73 square meters LAB GFRNO(LOINC) ml/min/1.73sqm GFR Non- >60 Result Comment: GFR Population mean for , Non- Americans Ages 20-29 = 116 mL/min/1.73 sq.m. Ages 30-39 = 107 mL/min/1.73 sq.m. Ages 40-49 = 99 mL/min/1.73 sq.m. Ages 50-59 = 93 mL/min/1.73 sq.m. Ages 60-69 = 85 mL/min/1.73 sq.m. Ages 70+ = 75 mL/min/1.73 sq.m. Chronic Kidney Disease: Less than 60 mL/min/1.73 square meters End Stage Renal Disease: Less than 15 mL/min/1.73 square meters Performed By: #### CMP, GFR, TSH #### [address] [address] #### VIDH #### [address] [address] TSH Collected: 06/29/2017 Status: F Source: [facility] 9:28 AM [facility] REPOSITORY TYPE CODE TESTS RESULT OUT OF RANGE REFERENCE UNITS LAB TSH(LOINC) 0.27-4.20 mcIU/mL Low TSH 0.02 Result Comment: Below normal(expected)range Performed By: #### CMP, GFR, TSH #### [address] [address] #### VIDH #### [place] [address] VIDH Collected: 06/29/2017 Status: F Source: [facility] 9:28 AM [facility] REPOSITORY TYPE CODE TESTS RESULT OUT OF RANGE REFERENCE UNITS LAB VIDH(LOINC) ng/mL Vit. D 27 25-Hydroxy Result Comment: Interpretive Values Based on Total 25(OH)D: Severe Deficiency <20 ng/mL Mild to Moderate Deficiency 20-30 ng/mL Optimum Levels 30-100 ng/mL Toxicity Possible >100 ng/mL Performed By: #### CMP, GFR, TSH #### [address] [address] #### VIDH #### [place] [id number] ECHOCARDIOGRAM COMPLETE Observed: 06/15/2017 Status: F Source: PATERSON 4:44 PM [facility] REPOSITORY [facility] Cardiovascular Services [address] [place] [address] Echo Complete 06/15/17 0933 MR#: [id number] Acct: [id number] Name: MARTINA LONGO Rep #: [id number] : 1950 66 From: Yaniv Liang MD Attending Dr: Yaniv Liang MD Status: REG CLI Ordering Dr: Yaniv Liang MD Date: 06/15/17 Location: CVS Sex: F C Admitted: Reason For Study: CHEST PAIN Procedure This was a 2D Doppler, Color Flow transthoracic echocardiogram. The exam was of fair technical quality due to diminished acoustic windows. The study was technically difficult. Exam performed in department. Left Ventricle Normal [...] due to technically difficult study. Aortic Valve Trisinus/trileaflet aortic valve. Normal aortic valve. Pulmonic Valve The pulmonic valve is not well visualized. Great Vessels Normal sized aortic root. Pericardium/Pleural No pericardial effusion. MMode/2D Measurements AND Calculations LVIDd: 3.9 cm IVSd: 0.96 cm Ao root diam: 2.9 cm LVIDs: 2.3 cm LVPWd: 1.1 cm RVDd: 2.6 cm FS: 40.1 % LAV(MOD-bp): 31.3 ml EDV(MOD-sp4): 41.5 ml EDV(MOD-sp2): [...] V1 max: 95.7 cm/sec MV A max daina: 67.7 cm/sec Ao max P.8 mmHg LV V1 max P.7 mmHg MV E/A: 0.89 PA V2 max: 112.5 cm/sec Interpretation Summary The study was technically difficult. Left ventricular systolic function is normal. The estimated ejection fraction is 60 %. Mild (1+) mitral valve insufficiency. Trivial tricuspid valve insufficiency. Unable to estimate RV systolic pressure/pulmonary artery pressure due to technically difficult study. Transmitral doppler flow suggestive of impaired relaxation of left ventricle Bubble contrast study negative for right to left interatrial shunt. Ordering Physician: Yaniv Liang Referring Physician: ANJELICA SALGUERO Performed By: Bryn Sky 06/15/17 1643 Date Yaniv Liang MD CC: Anjelica Salguero NP; Yaniv Liang MD Date Dictated: 06/15/17932 Date Transcribed: 06/15/171642 Overedger: Signed STRESS REPORT Observed: 06/15/2017 Status: F Source: PATERSON 10:19 AM [facility] REPOSITORY [facility] Cardiovascular Services [address] [place] [address] MR#: [id number] Acct: [id number] Name: MARTINA LONGO Rep #: [id number] : 1950 66 From: Yaniv Liang MD Primary Care: Anjelica Salguero NP Status: REG CLI Ordering Dr: Sex: F C Stress Test Report Date: 06/15/2017 Procedure: Pharmacologic stress nuclear imaging study Indications: Chest pain Consent: Per the patient Procedure: The patient underwent pharmacologic (Regadenoson) evaluation with a peak heart rate of 93 beats per minute (59% predicted maximal heart rate) and a peak blood pressure of 128/78 mmHg. The baseline ECG demonstrated normal sinus rhythm with nonspecific ST/T-wave abnormality. The peak pharmacologic ECG demonstrated with no obvious ECG changes. [There were no cardiac dysrhythmias pretest, during pharmacologic infusion, or recovery]. [There was no complaint of chest discomfort during pharmacologic infusion or recovery]. The examination was discontinued secondary to completion of protocol. Impression: 1. Pharmacologic (Regadenoson) evaluation 2. Peak pharmacologic ECG with continued nonspecific ST/T- wave abnormality with no obvious ECG changes. 3. Cardiac dysrhythmias pretest, during pharmacologic infusion, or recovery 4. Nuclear images pending Myocardial perfusion imaging study: Technique: The patient was injected with 1.4 millicuries of technetium 99m Cardiolite and subsequently rest SPECT Cardiolite nuclear imaging was obtained in the horizontal long, vertical long, and short axis views. The patient underwent pharmacologic (Regadenoson) evaluation with a peak heart rate of 93 beats per minute (59% predicted maximal heart rate) and a peak blood pressure of 128/78 mmHg. the patient was injected with 36 millicuries of technetium 99m Cardiolite and subsequently stress SPECT Cardiolite nuclear imaging was obtained in the horizontal long, vertical long, and short axis views. A gated Cardiolite study at peak stress was obtained. Interpretation: Rest and stress SPECT Cardiolite nuclear imaging status post realignment, normalization, and attenuation correction demonstrate relative uniform tracer uptake and myocardial perfusion appearing within normal limits. [There is end systolic thickening and brightening]. [The gated Cardiolite study demonstrates myocardial thickening and inward wall motion]. The reported LVEF is 92%. Impression: 1. Rest and stress SPECT currently nuclear imaging demonstrating relative uniform tracer uptake and myocardial perfusion appearing within normal limits. 2. The gated Cardiolite study demonstrates an LVEF of 92%. This note was generated with [employer] software. It may contain incorrect words, spelling, and punctuation that were not noted in checking the note before signing. 06/15/17 1019 <Electronically signed by Yaniv Liang MD> Date Yaniv Liang MD CC: Anjelica Salguero NP; Yaniv Liang MD Date Dictated: 06/15/17 1014 Date Transcribed: 06/15/17 1014 Overedger: PM Signed LUMBAR SPINE 2 OR 3 Observed: 06/13/2017 Status: F Source: PATERSON VIEWS 3:20 PM [facility] REPOSITORY [facility] Imaging Services [address] [place] [address] Lumbar Spine 2 or 3 Views MR#: [id number] Acct: [id number] Name: MARTINA LONGO Rep #: [id number] : 1950 F 66 From: Robert Saba DO PCP: Anjelica Salguero NP Status: REG CLI Study: Lumbar Spine 2 or 3 Views Date of Exam: 06/13/17 Exam# [id number] Ordering Dr: Yung Alvarez MD STUDY: X-RAY - LUMBAR SPINE REASON FOR EXAM: Female, 66 years old. Trauma, back pain TECHNIQUE: 3 view(s) of the lumbar spine were obtained. COMPARISON: 03/02/2016 FINDINGS: Normal lumbar lordosis. There is no substantial scoliosis. There is a normal alignment of the vertebrae. Normal vertebral bodies and endplates. There is multi-level degenerative disc disease with multi-level disc space narrowing. No fracture is seen. There is atherosclerotic calcification of the abdominal aorta without a demonstrated aneurysm. Cholecystectomy clips are seen in the right upper quadrant of the abdomen. RAD/Lumbar Spine 2 or 3 Views IMPRESSION: Mild degenerative changes. No acute bony abnormality. Electronically Signed: Robert Saba DO at 15:05 EST Tel , Service support , CC: Anjelica Salguero FINANCIAL REPORTING ADVISOR; Yung Alvarez MD Overedger: Signed CARDIOLOGY VISIT Observed: 05/31/2017 Status: F Source: PATERSON REPORT 4:09 PM [facility] REPOSITORY [facility] [address] [place] [address] OFFICE VISIT Date of Service: 05/31/17 MR#: [id number] Acct: [id number] Name: MARTINA LONGO Rep #: [id number] : 1950 Provider: Yaniv Liang MD Age/Sex: 66/F [place] [facility]: Signed HPI HPI Details: MARTINA LONGO, is a 66 F who presents to the office today for for outpatient cardiovascular consultation based on concerns of shortness of breath/dyspnea, chest discomfort, and fatigue superimposed upon a reported history of underlying CAD. She states she has previously been evaluated by Dr. Murray Patterson of cardiology in the [place], [place] area. She notes in the past [...] 48 hour timeframe. There were no other dysrhythmias or conduction system issues reported. It also appears she had a pharmacologic stress nuclear imaging study performed in June 2014 via the [facility] system. According to the reports available for review the final conclusion was normal. The echocardiogram is unavailable for review. The cardiac catheterization is unavailable for review. Based on her recent concerns she had an ECG in her PCPs office. The ECG appeared to demonstrate underlying sinus rhythm. There was possible left atrial enlargement. Her ECG was repeated today. It was noted that she had sinus rhythm with no acute ECG changes. She states that her symptoms can be random. She can feel short of breath and dyspneic. This may be more so with activity. She does feel tired and fatigued. She also notes that she can feel discomfort in her chest which appears to radiate towards her right shoulder and then potentially her right posterior thorax. She has not complained of associated nausea, emesis, or diaphoresis. There has been no orthopnea, PND, near-syncope, or syncope. She states she feels her lower extremities are somewhat more edematous than usual. Her daughter is with her today and believes he appears somewhat more edematous. On examination she appears to have trace bilateral lower extremity edema. She does have a variety of non-cardiovascular issues. Based upon notes from [facility] from 06/16/2012 it appears at that [...] admits that she does not take her fenofibrate on a daily basis. Intake Vital Signs05/31/17 Height 5 ft 2 in 05/31/17 Weight: 176 lb 5 oz 05/31/17 Body Mass Index (BMI) 32.2 Intake Visit Reasons: CP/SOB/FATIGUE/REF. CIESA Allergies amoxicillin trihydrate [From Augmentin] Allergy (Verified 10/30/13 23:22) Shortness of breath aspirin Allergy (Verified 10/30/13 23:22) Anaphylaxis atropine sulfate [From Lomotil] Allergy (Verified 10/30/13 23:22) Itching cefixime [From Suprax] Allergy (Verified 10/30/13 23:22) Itching ceftriaxone sodium [From Rocephin] Allergy (Verified 10/30/13 23:22) Itching cephalexin monohydrate [From Keflex] Allergy (Verified 10/30/13 23:22) Itching ciprofloxacin [From Cipro] Allergy (Verified 10/30/13 23:22) Shortness of breath ciprofloxacin HCl [From Cipro] Allergy (Verified 10/30/13 23:22) Shortness of breath clindamycin Allergy (Verified 10/30/13 23:22) Itching diphenoxylate HCl [From Lomotil] Allergy (Verified 10/30/13 23:22) Itching gentamicin [Gentamicin] Allergy (Verified 10/30/13 23:22) Itching hydromorphone HCl [From Exalgo ER] Allergy (Verified 10/30/13 23:22) Itching metoclopramide HCl [From Reglan] Allergy (Verified 10/30/13 23:22) Anaphylaxis Penicillins [PCN] Allergy (Verified 10/30/13 23:22) Itching phenazopyridine HCl [From Pyridium] Allergy (Verified 10/30/13 23:22) Itching potassium clavulanate [From Augmentin] Allergy (Verified 10/30/13 23:22) Shortness of breath povidone-iodine [From Betadine] Allergy (Verified 10/30/13 23:22) Itching propoxyphene HCl [From Darvon] Allergy (Verified 10/30/13 23:22) Itching red dye Allergy (Verified 10/30/13 23:22) Itching soap [From Betadine] Allergy (Verified 10/30/13 23:22) Itching Sulfa (Sulfonamide Antibiotics) [...] Adverse Reaction (Unknown, Verified 05/30/17 17:58) Unknown levofloxacin [From Levaquin] Adverse Reaction (Unknown, Verified 05/30/17 17:58) Unknown phenazopyridine [From Pyridium] Adverse Reaction (Unknown, Verified 05/30/17 17:58) Unknown carbamazepine [From Tegretol] Adverse Reaction (Verified 10/30/13 23:22) Unknown duloxetine HCl [From Cymbalta] Adverse Reaction (Verified 10/30/13 23:22) Unknown gabapentin [From Neurontin] Adverse Reaction (Verified 10/30/13 23:22) Other guaifenesin [From Entex T] Adverse Reaction (Verified 10/30/13 23:22) Vomiting midazolam HCl [From Versed] Adverse Reaction (Verified 10/30/13 23:22) Other morphine Adverse Reaction (Verified 10/30/13 23:22) Other phenobarbital Adverse Reaction (Verified 10/30/13 23:22) Other pseudoephedrine HCl [From Entex T] Adverse Reaction (Verified 10/30/13 23:22) Vomiting quetiapine fumarate [From Seroquel] Adverse Reaction (Verified 10/30/13 23:22) Other C-CLOR Allergy (Uncoded 10/30/13 23:22) Shortness of breath CAT SCAN DYE Allergy (Uncoded 10/30/13 23:22) Anaphylaxis CIPRO Allergy (Uncoded 10/30/13 23:22) Itching STERIODS Allergy (Uncoded 10/30/13 23:22) Other TAPE Adverse Reaction (Uncoded 10/30/13 23:22) Other XOPONEX Adverse Reaction (Uncoded 10/30/13 23:22) Other Medications Clonazepam [Klonopin] 2 mg QHS 10/30/13 [History Confirmed 05/31/17] B-complex with vitamin C capsule 1 cap PO QDAY 05/30/17 [History Confirmed 05/31/17] cholecalciferol (vitamin D3) 2,000 unit capsule 2,000 unit PO QDAY cap 05/30/17 [History Confirmed 05/31/17] cyclobenzaprine 10 mg tablet 10 mg PO HS tab 05/30/17 [History Confirmed 05/31/17] denosumab 60 mg/mL subcutaneous syringe 60 mg SC [id number] 05/30/17 [History Confirmed 05/31/17] epinephrine 0.3 mg/0.3 mL injection, auto-injector 0.5 mg IM Q10-15M PRN 05/30/17 [History Confirmed 05/31/17] fenofibrate micronized 67 mg capsule 67 mg PO QDAY 05/30/17 [History Confirmed 05/31/17] levothyroxine 100 mcg capsule 200 mcg PO cap 05/30/17 [History Confirmed 05/31/17] metoprolol succinate ER 25 mg tablet,extended release 24 hr 25 mg PO QDAY tab 05/30/17 [History Confirmed 05/31/17] morphine ER 30 mg-naltrexone 1.2 mg capsule, extend release, oral only 1 cap PO QDAY 05/30/17 [History Confirmed 05/31/17] omeprazole 40 mg capsule,delayed release 40 mg PO QDAY 05/30/17 [History Confirmed 05/31/17] trazodone 300 mg tablet 300 mg PO QHS tab 05/30/17 [History Confirmed 05/31/17] niacin ER 125 mg capsule,extended release 125 mg PO QDAY 05/31/17 [History Confirmed 05/31/17] [facility] Medical History Palpitations (Acute) SOB (shortness of breath) (Acute) Mitral valve prolapse (Acute) Hypertension (Chronic) Fatigue (Acute) Chest pain (Acute) Chronic pain (Acute) Fibromyalgia (Acute) GERD (gastroesophageal reflux disease) (Acute) Hiatal hernia (Acute) Hypothyroidism (Acute) Osteopenia (Acute) Osteoporosis (Acute) Psoriatic arthritis (Acute) Type 2 diabetes mellitus (Acute) Chronic pain (Inactive) Head ache (Inactive) Hypothyroidism (Inactive) Psoriatic arthritis (Inactive) Surgical History History of cholecystectomy (Resolved) History of total hysterectomy (Resolved) Hx of appendectomy (Resolved) Family History Father CAD (coronary artery disease) Mother CVA (cerebral vascular accident) Grandfather Heart disease Grandmother Heart disease Uncle Sudden cardiac , Onset Age: 30 Social History Smoking Status: Former smoker alcohol intake: never substance use type: does not use ROS Const Const: Positive for fatigue (increased) and weakness (increased); negative for weight gain, weight loss, frequent falls or excessive sweating Eyes Eyes: Negative for change in vision, blurry vision or transient loss of vision ENT ENT: Negative for dizziness, Positive for balance problems (ambulates with a cane) Cardio Chest Pain: Yes Frequency: weekly Character: other (pressure) Location: mid sternal, left chest Exacerbation: activity, rest Relieving: other (will rub putting counter pressure on area) Palpitations: Positive for No Edema: None Muscle aches with walking: None Additional Details: Patient reports experiencing CP describing as a pressure located Lt side/midsternal chest area while at rest and with activity. Patient reports that pain can radiate to Rt shoulder, becomes lightheaded and SOB. Resp Respiratory: Positive for SOB with activity (increased); negative for SOB at rest GI GI: Negative vomiting or vomiting blood/hematemesis : Negative for hematuria Musc Musc: Positive for muscle aches/ myalgia (HX fibromyalgia), joint pain (psoriatic arthritis) and balance problems (ambulates with a cane); negative for muscle weakness Skin Skin: Negative non-healing lesions or rash Neuro Neuro: Positive for weakness (increased), Negative for blurry vision, Negative for dizziness, Negative for lightheadedness, Negative for frequent falls, Negative for orthostatic symptoms Rishabh Hematologic/Lymphatic: Negative for easy bleeding Endo Endo: Positive for fatigue (increased); negative for excessive sweating Psych Psych: Negative for anxiety or depression Allergy Allergy/Immunology: Negative for hives, Negative for rash Cardiology Exam Const Appearance: cooperative, healthy appearing, comfortable, no acute distress, well developed, well groomed and other (examined in the wheelchair) Nutritional Appearance: average body habitus Orientation: alert, awake and oriented x3 Head Head: normal to inspection, normocephalic and atraumatic Ears: hearing grossly normal bilaterally Nose: external nose normal Face and Sinus: face symmetric Mouth: oral mucosae normal Teeth and gingiva: fair dentition Eyes General: appearance normal, both eyes and all related structures Eyelids: eyelids normal Conjunctivae: conjunctivae normal Pupils: PERRL EOM: EOM intact bilaterally Neck Neck: normal visual inspection and full ROM Carotids: normal carotid upstroke Chest Chest inspection: normal inspection of the chest and symmetric chest movement Auscultation: Bilateral: Clear to Auscultation Cardio Palpation: normal PMI Rate: regular rate Rhythm: regular rhythm [...] However she states she does have a history of previous CAD based upon her remote diagnostic cardiac catheterization performed in or around 1994. At the present time based upon her concern she will have a follow-up pharmacologic stress nuclear imaging study performed. If there are concerns she may need to proceed with repeat diagnostic cardiac catheterization. If not she may need to continue noncardiac evaluation of her discomfort. Orders Orders: 2. Shortness of breath R06.02 Plan Again she notes shortness of breath and dyspnea. She will have further evaluation as noted above. She will also have further evaluation with a transthoracic echocardiogram to reassess her left ventricular wall motion and systolic function. Orders Orders: 3. Fatigue, unspecified type R53.83 Plan She does have tiredness and fatigue. She has been undergoing evaluation care by her primary care physician for this. She will also undergo further cardiac evaluation as noted above. Orders Orders: 4. Palpitations R00.2 Plan She does have a history of palpitations. It is noted in the past that [...] 6. Hypertension, unspecified type I10 Plan She states the beta-nathen has been beneficial for her hypertension. Her blood pressure appears to be reasonably well controlled at the moment. She will continue her current medical management and follow-up. Orders Orders: Plan Detail Additional Comments Overall and she will proceed with her echocardiogram and the pharmacologic stress nuclear imaging study. She will continue her current medical therapy. She will be scheduled for future outpatient cardiovascular follow-up. If her studies were unremarkable she may need no further cardiac evaluation or care and she will continue to follow with her primary care physician. If her studies are concerning that she will need further cardiac evaluation as deemed appropriate at the time. The above was discussed with patient and her daughter. They are agreeable to this approach. Follow Up 6 Weeks (PA/FINANCIAL REPORTING ADVISOR) Coding Level of Care Code Off vis,new,level 4 Diagnoses Chest pain, unspecified type R07.9 Chest pain type: unspecified Shortness of breath R06.02 Fatigue, unspecified type R53.83 Fatigue type: unspecified Palpitations R00.2 Mitral valve prolapse I34.1 Hypertension, unspecified type I10 Hypertension type: unspecified Coding Level of Care Code Off vis,new,level 4 Diagnoses Chest pain, unspecified type R07.9 Chest pain type: unspecified Shortness of breath R06.02 Fatigue, unspecified type R53.83 Fatigue type: unspecified Palpitations R00.2 Mitral valve prolapse I34.1 Hypertension, unspecified type I10 Hypertension type: unspecified 05/31/17 1609 <Electronically signed by Yaniv Liang MD> Date Yaniv Liang MD Cosigner Signature: Date (if applicable) CC: Anjelica Salguero NP 12 LEAD EKG PERFORMED Observed: 05/31/2017 Status: F Source: [facility] 2:15 PM [facility] REPOSITORY [facility] [address] [place] [address] 12 Lead EKG performed by [facility] 05/31/17 1413 MR#: [id number] Acct: [id number] Name: MARTINA LONGO Rep #: [id number] : 1950 66 From: Yaniv Liang MD Attending Dr: Yaniv Liang MD Status: DEP AMB Ordering Dr: Yaniv Liang MD Date: 05/31/17 [place] [facility] [place]: F C Admitted: BMS/12 Lead EKG performed by [facility] ECG Report Interpretation Sinus Rhythm Poor R wave progressionElectronically signed on 05/31/2017 at 16:10 by Yaniv Liang 05/31/17 1612 Date Yaniv Liang MD CC: Anjelica Salguero FINANCIAL REPORTING ADVISOR Date Dictated: 05/31/17 141 Date Transcribed: 05/31/171412 Overedger: PM Signed TSH Collected: 04/18/2017 Status: F Source: [facility] 5:38 PM [facility] REPOSITORY TYPE CODE TESTS RESULT OUT OF RANGE REFERENCE UNITS LAB TSH(LOINC) 0.27-4.20 mcIU/mL Low TSH 0.03 Result Comment: Below normal(expected)range Performed By: #### TSH #### [place] [address] ALLERGIES ALLERGIES DATE TYPE / CODE NAME / CODE REACTION SEVERITY SOURCE 03/01/20 Drug diphenoxylate Itching Unknown Jnanet 18 Allergy/459462346 [facility] 03/01/20 Drug midazolam Other Unknown Jannet 18 Allergy/176001592 HCl/Q263184855(RXNO [facility] (OMED CT) ) Hospital Repository 03/01/20 Drug hydromorphone Itching Unknown [place] 18 Allergy/816043032 HCl/N914694177(RXNO [facility] (OMED CT) ) Hospital Repository 03/01/20 Drug propoxyphene Itching Unknown [place] 18 Allergy/388265487 HCl/X891839507(RXNO [facility] (OMED CT) ) Hospital Repository 03/01/20 Drug atropine Itching Unknown [place] 18 Allergy/738819322 sulfate/R270811143( [facility] ([facility] CT) RXNO) Hospital Repository 03/01/20 Drug pseudoephedrine Vomiting Unknown Jannet 18 Allergy/868336797 HCl/A276713309([facility]) Hospital Repository 03/01/20 Drug metoclopramide Anaphylaxis Unknown [place] 18 Allergy/118729050 HCl/O211026818([facility] ([facility] ) Hospital Repository 03/01/20 Drug soap/D334758145(RXN Itching Unknown Union 18 Allergy/862988013 ORM) [facility] ([facility]) Hospital Repository 03/01/20 Drug amoxicillin Shortness of Unknown Jannet 18 Allergy/872073596 trihydrate/M0918373 breath [facility] ([facility]) 07(RXNORM) Hospital Repository 03/01/20 Drug ceftriaxone Itching Unknown [place] 18 Allergy/948333293 sodium/L869135897(R [facility] ([facility]) XNORM) Hospital Repository 03/01/20 Drug potassium Shortness of Unknown Jannet 18 Allergy/754229681 clavulanate/A574393 breath [facility] (SN[facility]) 809(RXNORM) Hospital Repository 03/01/20 Drug phenazopyridine Itching Unknown Jannet 18 Allergy/306053546 HCl/H916097956([facility] ([facility]) ) Hospital Repository 03/01/20 Drug ketorolac Vomiting SV Union 18 Allergy/378338659 tromethamine/A61626 [facility] (SNOM[facility]) 3539(RXNORM) Hospital Repository 03/01/20 Drug ciprofloxacin Shortness of Unknown Jannet 18 Allergy/634979451 HCl/U511394433(RXNO [facility] ([facility]) ) Hospital Repository 03/01/20 Drug cephalexin Itching Unknown Jannet 18 Allergy/200645477 monohydrate/D954591 [facility] (SNOM[facility]) 830(RXNORM) Hospital Repository 03/01/20 Drug quetiapine Other Unknown Jannet 18 Allergy/783476161 fumarate/Q079863448 [facility] ([facility]) (RXNORM) Hospital Repository 03/01/20 Drug duloxetine Unknown Unknown [facility] 18 Allergy/113208359 HCl/S825551879([facility] ([facility]) ) Hospital Repository 03/01/20 Drug Penicillins/J986127 Itching Unknown [facility] 18 Allergy/999634553 476(RXNORM) [facility] ([facility]) Hospital Repository 03/01/20 Drug Sulfa (Sulfonamide Itching Unknown Union 18 Allergy/527166335 Antibiotics)/N91583 [facility] ([facility]) 0491(RXNORM) Hospital Repository 03/01/20 Drug guaifenesin/M762282 Vomiting Unknown Union 18 Allergy/187807168 724(RXNORM) [facility] ([facility] CT) Hospital Repository 03/01/20 Drug iodine/M856650912(R Unknown Unknown Jannet 18 Allergy/426430697 XNORM) [facility] ([facility] CT) Hospital Repository 03/01/20 Drug phenobarbital/F0060 Other Unknown [facility] 18 Allergy/907729291 71805(RXNORM) [facility] ([facility] CT) Hospital Repository 03/01/20 Drug morphine/B088646338 Other Unknown [place] 18 Allergy/590946656 (RXNORM) [facility] ([facility]) Hospital Repository 03/01/20 Drug aspirin/V421439967( Anaphylaxis Unknown Union 18 Allergy/487112127 RXNORM) [facility] ([facility] CT) Hospital Repository 03/01/20 Drug carbamazepine/F0060 Unknown Unknown Jannet 18 Allergy/446222390 89127(RXNORM) [facility] ([facility] CT) Hospital Repository 03/01/20 Drug cefixime/V106601086 Itching Unknown Union 18 Allergy/169008478 (RXNORM) [facility] ([facility] CT) Hospital Repository 03/01/20 Drug clindamycin/X773781 Itching Unknown Jannet 18 Allergy/104268603 794(RXNORM) [facility] ([facility] CT) Hospital Repository 03/01/20 Drug ciprofloxacin/F0060 Shortness of Unknown Union 18 Allergy/591430289 93558(RXNORM) breath [facility] ([facility] CT) Hospital Repository 03/01/20 Drug povidone-iodine/F00 Itching Unknown Jannet 18 Allergy/907135479 9815888(RXNORM) [facility] (OMED CT) Hospital Repository 03/01/20 Drug clarithromycin/F006 Vomiting SV Union 18 Allergy/384447482 318022(RXNORM) [facility] ([facility] CT) Hospital Repository 03/01/20 Drug azithromycin/F40311 Vomiting MO Union 18 Allergy/481557172 3635(RXNORM) [facility] (SNOMED CT) Hospital Repository 03/01/20 Drug gabapentin/Z4589889 Other Unknown Jannet 18 Allergy/243072454 15(RXNORM) [facility] (SNOMED CT) Hospital Repository 03/01/20 Drug verapamil/P30716459 Other SV Jannet 18 Allergy/668212454 5(RXNORM) [facility] (OMED CT) Hospital Repository 03/01/20 Drug phenazopyridine/F00 Unknown Unknown Union 18 Allergy/027632177 6486465(RXNORM) [facility] (SNOMED CT) Hospital Repository 03/01/20 Drug gentamicin/N8424646 Itching Unknown Union 18 Allergy/236409859 98(RXNORM) [facility] (SNOMED CT) Hospital Repository 03/01/20 Drug levofloxacin/B85543 Unknown Unknown [place] 18 Allergy/266108886 6299(RXNORM) [facility] (OMED CT) Hospital Repository 03/01/20 Drug red Itching Unknown Union 18 Allergy/354983068 dye/R003285464(RXNO [facility] (SNOMED CT) ) Hospital Repository 03/01/20 Drug adhesive skin peels SV Jannet 18 Allergy/412348777 tape/Y434369328(RXN [facility] (SNOMED CT) OR) Hospital Repository 10/31/19 Miscellaneous C-CLOR Shortness of Unknown Jannet 14 Allergy/777747932 breath [facility] (SNOMED CT) Hospital Repository 10/31/19 Miscellaneous CAT SCAN DYE Anaphylaxis Unknown Jannet 14 Allergy/920466893 [facility] (SNOMED CT) Hospital Repository 10/31/19 Miscellaneous CIPRO Itching Unknown Jannet 14 Allergy/930433598 [facility] (SNOMED CT) Hospital Repository 10/31/19 Miscellaneous STERIODS Other Unknown Jannet 14 Allergy/377567603 [facility] (SNOMED CT) Hospital Repository 10/31/19 Miscellaneous TAPE Other Unknown Jannet 14 Allergy/186362335 [facility] (SNOMED CT) Hospital Repository 10/31/19 Miscellaneous XOPONEX Other Unknown Jannet 14 Allergy/098042337 [facility] (SNOMED CT) Hospital Repository ENCOUNTERS ENCOUNTERS ADMIT/DISCHARGE ACCOUNT NUMBER ADMITTING ENCOUNTER LOCATION SOURCE CLASS 03/19/2018 [id number] Ambulatory Union Union [facility] ding:RAD Repository 03/06/2018 [id number] Ambulatory Building:[facility] Practices Repository 03/01/2018/03/03/20 [id number] White, Ambulatory [address]ann[address] ding:PCURoom Repository : GLK293Etz: 1 03/01/2018 [id number] White, Ambulatory BMSBuilding: Union Carmen BMS.[facility] Repository 03/01/2018 [id number] White, Ambulatory BMSBuilding: Jannet Carmen BMS.[facility] Repository 03/01/2018 [id number] White, Ambulatory BMSBuilding: Jannet Carmen BMS.[facility] Repository 09/03/2017 [id number] Ambulatory [facility] ding:LAB Repository 08/28/2017/08/29/19 [id number] Ambulatory [address] ding:[facility] Repository 08/22/2017 [id number] Ambulatory [facility] ding:OPBI Repository 06/29/2017/06/30/19 [id number] Ambulatory [address] ding:[facility] Repository 06/15/2017 [id number] Ambulatory [facility] ding:CVS Repository 06/15/2017 [id number] Ambulatory BMSBuilding: Union [facility] Repository 06/13/2017 [id number] Ambulatory [facility] ding:RAD Repository 05/31/2017/05/31/19 [id number] Ambulatory BMSBuilding: Jannet 18 BMS.[facility] Repository 05/30/2017 [id number] Ambulatory BMSBuilding: Jannet BMS.[facility] Repository 04/18/2017/04/18/20 [id number] Ambulatory DONNY [address] ding:[facility] Repository PAYERS PAYERS ENCOUNTER GUARANTOR PAYER SUBSCRIBER SOURCE 03/19/2018 MARTINA YO TESTADOB: Jannet [id number] Insurance:norin.tv [id number] [facility] Number: [place], [place] [id number] Repository [address]Vbg: (330) Date:0956-42-47[phone] (HP) TOVA BOWSER [address]YT: 03/19/2018 Secondary NOT GIVENUNK Union Insurance:SELF PAY [facility] Number: Effective Repository Date:2018-03-19 03/06/2018 Martina Collins Primary Mohan TestaDOB: OHIP Practices TestaDOB: Insurance:CignaPolicy [id number] Repository Number: [facility] [id number] [address]Cla: (216) [place], [place] Date:0367-54-60Sjhc [phone] (HP) 38[address]Ghm: ([phone]) Name:FP. Espinosa [phone], [place] (HP)Tel: [phone]: ([phone] 03/01/2018 MARTINA Collins Primary MOHAN TESTADOB: Jannet [id number] Insurance:CIGNAPolicy [id number] Hospital Number: [place], [place] [id number] Repository [address]Sfp: (330) Date:4183-46-50OI [phone] (HP) TOVA BOWSER 21218ZW: 03/01/2018 Secondary NOT GIVENUNK Union Insurance:SELF PAY [facility] Number: Effective Repository Date:2018-03-01 03/01/2018 MARTINA Collins Primary Mohan TestaDOB: Union [id number] Insurance:CIGNAPolicy [id number] [facility] Number: [place], [place] [id number] Repository 106[address]Rmt: (330) Date:2779-51-99PD [phone] (HP) TOVA BOWSER 264[address]AY: 03/01/2018 Secondary NOT GIVENUNK Union Insurance:SELF PAY [facility] Number: Effective Repository Date:2018-03-01 03/01/2018 MARTINA C Primary MOHAN TESTADOB: Union [id number] Insurance:CIGNAPolicy [id number] [facility] Number: [place] [id number] Repository [address]Wqm: (330) Date:3395-02-31VU [phone] () [id number], [place] [address]TN: 03/01/2018 Secondary NOT GIVENUNK Jannet Insurance:SELF PAY [facility] Number: Effective Repository Date:2018-03-01 03/01/2018 MARTINA C Primary MOHAN TESTADOB: Jannet [id number] [facility] [id number] [facility] Number: [place], [place] [id number] Repository [address]Ddr: (330) Date:6562-65-31YU [phone] () 922377LCTEPURVFOJSAVAGE, [place] [address]QF: 03/01/2018 Secondary NOT GIVENUNK Union Insurance:SELF PAY [facility] Number: Effective Repository Date:2018-03-01 09/03/2017 MARTINA C Primary Mohan TestaDOB: Union [id number] [id number] Number: [place], [place] [id number] Repository [address]Mle: (330) Date:1226-75-30BM [phone] () [id number], [place] [address]TG: 09/03/2017 Secondary NOT GIVENUNK Jannet Insurance:SELF PAY [facility] Number: Effective Repository Date:2017-09-03 08/28/2017 MARTINA C Primary MARTINA Collins [facility] TESTADOB: Insurance:CIGNA [facility] TESTADOB: [facility] [id number] Number: [id number] [place] [address] [id number] [place], [place] Date:2017-08-28 [place] [address]~NILTON@ [id number] [address]Fjk: ([phone]) [email or web address]: Name:[phone] [address]Cchpnrasrfc, [place] (HP)Tel: [phone]) (HP) [phone]: (WP) [phone] 08/22/2017 MARTINA Collins Primary Mohan TestaDOB: Union [id number] Insurance:CIGNAPoly [id number] Shore University Hospital Number: [place], [place] [id number] Repository [address]Uik: (330) Date:4258-94-74HM [phone] () 196203HTTJIZZXPIO, [place] [address]EZ: 08/22/2017 Secondary NOT GIVENUNK Union Insurance:SELF PAY [facility] Number: Effective Repository Date:2017-08-01 06/29/2017 MARTINA Collins Primary MARTINA Collins [facility] TESTADOB: Insurance[facility] TESTADOB: [facility] [address] [place] [address] Number: [id number] [place] [address] [id number] [place], [place] Date:2017-06-29 [place] [address]~MARIEIdaliaDAVINAJasper@ [id number] 979[address]Ujd: ([phone]) [email or web address]: Name:[phone] [id number], [place] ()Tel: ([phone]) () [phone]: (WP) [phone] 06/15/2017 MARTINA Collins Primary Mohan TestaDOB: Union [id number] Insurance:[facility] [id number] [facility] Number: [place], [place] [id number] Repository [address]Num: (330) Date:9443-30-24FG [phone] () [id number], [place] [address]QC: 06/15/2017 Secondary NOT GIVENUNK Jannet Insurance:SELF PAY [facility] Number: Effective Repository Date:2017-05-31 06/15/2017 MARTINA C Primary Mohan TestaDOB: Jannet [id number] Insurance:CIGNAPolicy [id number] [facility] Number: [place] [id number] Repository [address]Ybn: (330) Date:4411-23-92OA [phone] (HP) [id number], [place] [address]RF: 06/15/2017 Secondary NOT GIVENUNK Union Insurance:SELF PAY [facility] Number: Effective Repository Date:2017-06-15 06/13/2017 MARTINA C Primary Mohan TestaDOB: Jannet [id number] Insurance:CIGNAPolicy [id number] [facility] Number: [place] [id number] Repository [address]Qxf: (330) Date:9728-19-93ME [phone] (HP) [id number], [place] [address]VE: 06/13/2017 Secondary NOT GIVENUNK Union Insurance:SELF PAY [facility] Number: Effective Repository Date:2017-06-13 05/31/2017 Martina C Primary Mohan TestaDOB: Union [id number] Insurance:CIGNAPolicy [id number] [facility] Number: [place] [id number] Repository [address]Exb: (330) Date:1272-82-16QI [phone] (HP) 509777RCSLAFFSISG, [place] [address]IM: 05/31/2017 Secondary NOT GIVENUNK Jannet Insurance:SELF PAY [facility] Number: Effective Repository Date:2017-05-08 05/30/2017 Martina C Primary Mohan TestaDOB: Union [id number] Insurance:CIGNAPolicy [id number] [facility] Number: [place] [id number] Repository [address]Fkq: (330) Date:9475-60-92HJ [phone] (HP) 112887NLCRHFTHKAN, [place] [address]HK: 05/30/2017 Secondary NOT GIVENUNK Union Insurance:SELF PAY [facility] Number: Effective Repository Date:2017-05-30 04/18/2017 MARTINA Collins Primary MARTINA Collins [facility] TESTADOB: Insurance:[facility] TESTADOB: [facility] [id number] Number: [id number] Repository [place] [id number] [place] Date:2017-04-18 [place] [address]~NILTON@ [id number] [phone]: ([phone]) Rajat: Name:BRONWYN [phone] [place] ()Tel: [phone]) () [phone]: () [phone]
== END ==
PROVIDERS: Family Provider Nurse Practitioner; PCP Nurse Practitioner; Referring Provider Anesthesiology Pain Medicine; Visit Provider Anesthesiology Pain Medicine
DX: M54.2 Cervicalgia (principal)
CPT/HCPCS: 72040

== ENCOUNTER → 2018-05-03 14:28 | Outpatient (CLI) | payer OTHER, SELFPAY ==
[2018-03-19 14:30] VITALS: BMI 32.2
--- NOTE | 2018-05-03 14:32 | US_ITS ---
STUDY: THYROID ULTRASOUND REASON FOR EXAM: Female, 67 years old. Elevated TSH TECHNIQUE: Ultrasound evaluation of the thyroid was performed with real-time and static dudley-scale imaging. COMPARISON: None. FINDINGS: RIGHT LOBE: The right lobe of the thyroid gland measures 3.6 x 1.4 x 1.9 cm. There is a homogeneous echotexture. There are no demonstrated solid, cystic or complex lesions. LEFT LOBE: The left lobe of the thyroid gland measures 3.8 x 1.0 x 1.5 cm. There is a homogeneous echotexture. There are no demonstrated solid, cystic or complex lesions. ISTHMUS: The isthmus measures 3 mm. The regional lymph nodes are normal. US/Thyroid IMPRESSION: No suspicious sonographic findings, the borders of the thyroid however are nonspecifically irregular. Electronically Signed: Mamadou Lizama MD at 8:53 EST , Service support ,
== END ==
PROVIDERS: Family Provider Nurse Practitioner; PCP Nurse Practitioner; Referring Provider Nurse Practitioner; Visit Provider Nurse Practitioner
DX: R79.89 Other specified abnormal findings of blood chemistry (principal)
CPT/HCPCS: 76536

== ENCOUNTER → 2018-06-11 16:15 | Outpatient (CLI) | payer OTHER, SELFPAY ==
[2018-03-19 14:30] VITALS: BMI 32.2
[2018-06-11 17:45] LABS: Free T3 1.8 pg/mL (2.18-3.98); T4 Free Direct 0.88 ng/dL (0.76-1.46)
== END ==
PROVIDERS: Family Provider Nurse Practitioner; PCP Nurse Practitioner; Referring Provider Nurse Practitioner; Visit Provider Nurse Practitioner
DX: R79.89 Other specified abnormal findings of blood chemistry (principal)
CPT/HCPCS: 36415; 84439; 84443; 84481

== ENCOUNTER → 2018-08-23 | Outpatient (CLI) | payer OTHER, SELFPAY ==
[2018-03-19 14:30] VITALS: BMI 32.2
--- NOTE | 2018-08-23 13:16 | BI_ITS ---
MAMMOGRAPHY - BILATERAL SCREENING 3-D TOMOSYNTHESIS REASON FOR EXAM: Female, 67 years old. Bilateral Screening 3-D tomosynthesis PERTINENT HISTORY: Paternal aunt at age 62 with breast cancer. Bilateral implants 1980s and removed 1989 due to rupture.. TECHNIQUE: 2-D mammograms and 3-D Tomosynthesis of the breast (s) were performed. CAD was performed. COMPARISON: August 22, 2017. FINDINGS: The breast composition is composed of scattered fibroglandular density. There is a new, 4.4 mm nodule within the slightly lower, inner right breast positioned approximately 4.7-5.3 cm from the nipple base. Sonographic characterization is highly recommended. There are no suspicious clustered microcalcifications. There are no secondary signs of malignancy. The left breast appears stable without radiographic evidence of malignancy. BI/SCREENING MAMM (CAD), BILAT IMPRESSION: New, subcentimeter nodule within the right breast as above. ASSESSMENT CATEGORY: BIRADS Category 0: Incomplete. Need additional imaging evaluation as above. A letter regarding these results will be sent to the patient by the facility within 30 days. FOLLOW UP RECOMMENDATION: Ultrasound Recommended. (I) Approximately 10% of breast cancers are not detected by mammography. A normal mammogram should not delay biopsy of a clinically suspicious abnormality. Electronically Signed: Sonido Gomez MD at 16:22 EDT , Service support ,
== END | disposition home or self-care (01) ==
LOC: OPBI 13:14
PROVIDERS: Family Provider Nurse Practitioner; PCP Nurse Practitioner; Referring Provider Nurse Practitioner; Visit Provider Nurse Practitioner
DX: Z12.31 Encounter for screening mammogram for malignant neoplasm of breast (principal)
CPT/HCPCS: 77063; 77067

== ENCOUNTER → 2018-09-03 | Outpatient (CLI) | payer OTHER, SELFPAY ==
[2018-03-19 14:30] VITALS: BMI 32.2
--- NOTE | 2018-09-03 13:09 | US_ITS ---
STUDY: ULTRASOUND BREAST - RIGHT REASON FOR EXAM: Female, 67 years old. Abnormal screening mammogram. TECHNIQUE: Axial and longitudinal images of the RIGHT breast were performed with a high resolution ultrasound transducer. COMPARISON: Comparison is made with prior mammogram dated August 23, 2018. FINDINGS: RIGHT Breast: The mammographic abnormality corresponds to a 3 mm x 2 mm x 2 mm hypoechoic well-defined hypodensity at the 3:00 position of the breast at 3 cm from the nipple. A four-month follow-up examination is recommended. US/Breast Limited Unilateral IMPRESSION: The mammographic abnormality corresponds to a 3 mm x 2 mm x 2 mm well-defined hypoechoic solid nodule. A four-month follow-up ultrasound examination is recommended. ASSESSMENT CATEGORY: BIRADS Category 3: Probably Benign - Short-Interval Follow-up Suggested. A letter regarding these results will be sent to the patient by the facility within 30 days. Electronically Signed: Xu Davila, at 14:24 EDT , Service support ,
== END | disposition home or self-care (01) ==
PROVIDERS: Family Provider Nurse Practitioner; PCP Nurse Practitioner; Referring Provider Nurse Practitioner; Visit Provider Nurse Practitioner
DX: N63.0 Unspecified lump in unspecified breast (principal)
CPT/HCPCS: 76642

== ENCOUNTER 2018-11-16 16:07 | Emergency (ER) | payer OTHER, SELFPAY ==
[2018-03-19 14:30] VITALS: BMI 32.2
[2018-11-16 16:08] VITALS: BP 163/78; PULSE 77; RESP 16; TEMP 36.5; O2SAT 94; BMI 29.2
--- NOTE | 2018-11-16 16:41 | ED.VISSUMM ---
- ER Visit Summary Date of Service: 11/16/18 Chief Complaint: Syncopal episode History of Present Illness: The patient is a 67 F who presents with a syncopal episode that occurred today. Patient states she felt dizzy and unsteady on her feet. Patient then passed out. states that the patient's son witnessed the event and states she fell to her knees and then fell onto the floor. Patient admits to a brief loss of consciousness. Patient does admit to some recent subjective chills but denies any fevers. Patient denies any headaches. Patient denies any chest pain or palpitations. Patient denies any shortness of breath. Patient admits to some recent nausea but denies any vomiting. Physical Examination: Vital signs are stable. Patient is afebrile. Patient is in no acute distress. Pupils are equal, round, and reactive to light bilaterally. Extraocular muscles are intact. Patient states this did reproduce some of her dizziness. There is some superficial abrasions over the left periorbital area. There is no bony crepitance or step-off. Oral mucosa is pink and moist. Neck is supple. Trachea is midline. There is no JVD noted. Heart was regular rate and rhythm. Lungs are clear and equal bilaterally. Abdomen is soft. Bowel sounds are normal. There is no tenderness. Cranial nerves II through XII are intact. There are no focal motor or sensory deficits noted. Test Results: CT scan of the brain was obtained and was negative. PA and lateral chest x-ray does not show any acute cardiopulmonary process. EKG showed normal sinus rhythm with a rate of 63. There are no acute ST or T wave changes noted. CBC, comprehensive metabolic profile, PT with INR, PTT, urinalysis and troponin were obtained and were within normal limits. Emergency Department Course and Treatment: Patient was given a dose of meclizine here. Patient felt better on reevaluation. Patient was instructed to follow-up with her primary care physician in 5 to 7 days. Patient was instructed to plenty of fluids. Patient was instructed to return if worse in any way. Patient understood and was agreeable with the plan. All questions were answered. Disposition: Discharge home Impression: 1. Syncope 2. Dizziness This note was generated with [employer] dictation software. It may contain incorrect words, spelling, and punctuation that were not noted in review of the chart prior to signing ED Disposition - Plan for ED Patient: Disposition: Home or Assisted Living Diagnosis: Syncope, Dizziness Instructions: SYNCOPE, Unk Cause Referrals: Anjelica Moore NP-C [Primary Care Provider] - 5-7 Days
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
--- NOTE | 2018-11-16 16:43 | EKG12_ITS ---
Test Reason : SYNCOPE Blood Pressure : / mmHG Vent. Rate : 063 BPM Atrial Rate : 063 BPM P-R Int : 160 ms QRS Dur : 088 ms QT Int : 434 ms P-R-T Axes : 040 050 017 degrees QTc Int : 444 ms Normal sinus rhythm Normal ECG Confirmed by VICK GARZA, HODA ([id number]), disability liaison officer RATNA SOSA ([id number]) on 11/18/2018 1:57:33 PM Referred By: KARMA Confirmed By:JOSE CRUZ HICKMAN MD
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
[2018-11-16] MEDS: Meclizine HCl 25 MG Tablet PO (16:52)
[2018-11-16 16:55] VITALS: BP 134/66; PULSE 66; RESP 12; O2SAT 94
[2018-11-16 16:58] LABS: Absolute Lymphocyte Count 2.67 X10^3/uL (0.83-4.51); Absolute Neutrophil Count 5.5 X10^3/uL (2.0-7.7); Basophil# 0.05 X10^3/uL; Basophil% 0.5 % (0-1); Eosinophil# 0.23 X10^3/uL; Eosinophils% 2.5 % (0-5); Hematocrit 46.5 % (37-47); Hemoglobin 15.7 g/dL (12.0-15.0); Lymphocyte # 2.67 X10^3/ul (4.0); Lymphocyte % 29.3 % (19-41); Mean Corp Hgb Conc 33.8 g/dL (32-36); Mean Corpuscular Hgb 32.6 pg (27.0-32.0); Mean Corpuscular Volume 96.5 fL (81-99); Mean Platelet Vol. 9.5 fl (6.2-12.0); Monocyte% 6.6 % (0-10); NRBC Flagged by Analyzer 0 % (0-5); Neutrophil # 5.54 X10^3/uL (2.7-7.7); Neutrophil % 60.8 % (47-70); Platelet Count 205 K/mm3 (150-450); RBC Distribution Width CV 12.4 % (11.6-14.6); RBC Distribution Width SD 44.3 fl (35.1-43.9); Red Blood Count 4.82 M/mm3 (4.2-5.4); White Blood Count 9.1 K/mm3 (4.4-11.0)
[2018-11-16 17:04] LABS: Partial Thromboplast Time 27.6 Seconds (24.1-36.2); Prothrombin Time (Protime)PT. 13.1 SECONDS (11.7-14.9)
[2018-11-16 17:12] LABS: ALB/GLOB Ratio 0.9 RATIO (0.9-2.4); AST(SGOT) 15 U/L (15-37); Alanine Aminotransfer ALT/SGPT 20 U/L (13-56); Albumin, Serum 3.6 g/dL (3.2-5.0); Alkaline Phosphatase 81 U/L (45-117); Anion Gap 7 (5-15); BUN 11 mg/dL (7-18); BUN/Creat Ratio 12.3 RATIO (10-20); Calcium,Total 8.7 mg/dL (8.5-10.1); Chloride 105 mmol/L (98-107); EST Glomerular Filtration Rate 67 mL/min (>60); Est Glom Filt Rate - Afr Amer 81 mL/min (>60); Estimated Creatinine Clearance 49.29 ml/min; Globulin 3.8 g/dL (2.2-4.2); Glucose 100 mg/dL (74-106); Potassium 3.8 mmol/L (3.5-5.1); Protein, Total 7.4 g/dL (6.4-8.2); Sodium Level 138 mmol/L (136-145)
[2018-11-16 17:38] VITALS: BP 157/63; PULSE 66; RESP 16; O2SAT 95
[2018-11-16 17:40] LABS: Bacteria 0 SEEN /hpf (None Seen); Red Blood Cells-Urine 0 SEEN /hpf (0-5)
[2018-11-16 17:58] LABS: Color, Urine Yellow (Yellow); Glucose, Dipstick Normal (Normal); Ketone-Dipstick Negative (Negative); Leukocyte Esterase-Dipstick 25 /ul (Negative); Nitrite-Dipstick Negative (Negative); Occult Blood-Urine Negative /ul (Negative); Protein-Dipstick Negative (Negative); Specific Gravity, Urine 1.015 (1.002-1.030); Urine Bilirubin Dipstick Negative (Negative); Urine Clarity Clear (Clear); Urine Urobilinogen Normal (Normal)
[2018-11-16 17:59] LABS: Mucous, Urine RARE /hpf (<or=2+); Squamous Epithelial Cells - UA 0-5 SEEN /hpf (5-10); White Blood Cells 0-5 SEEN /hpf (0-5)
[2018-11-16 18:41] VITALS: BP 126/61; PULSE 62; RESP 17; O2SAT 93
== END 2018-11-16 20:02 | disposition home or self-care (01) ==
PROVIDERS: Emergency Provider Emergency Medicine; Family Provider Nurse Practitioner; PCP Nurse Practitioner
DX: R55 Syncope and collapse (principal); R42 Dizziness and giddiness; M54.2 Cervicalgia; M54.9 Dorsalgia, unspecified; G89.29 Other chronic pain; S00.212A Abrasion of left eyelid and periocular area, initial encounter; W19.XXXA Unspecified fall, initial encounter; Y93.9 Activity, unspecified; Y92.9 Unspecified place or not applicable; J45.909 Unspecified asthma, uncomplicated; M19.90 Unspecified osteoarthritis, unspecified site; M79.7 Fibromyalgia; E03.9 Hypothyroidism, unspecified; I34.1 Nonrheumatic mitral (valve) prolapse; I51.89 Other ill-defined heart diseases; G43.909 Migraine, unspecified, not intractable, without status migrainosus; Z79.899 Other long term (current) drug therapy
CPT/HCPCS: 70450; 71046; 80053; 81001; 84484; 85025; 85610; 85730; 93005; 99285; A4216

== ENCOUNTER → 2019-01-07 14:26 | Outpatient (CLI) | payer OTHER, SELFPAY ==
--- NOTE | 2019-01-07 14:30 | VDLE_ITS ---
Reason For Study: pain RIGHT LEFT CFV is compressible, spontaneous, phasic, GSV is normal. competent and demonstrates normal CFV is compressible, spontaneous, phasic, augmentation. competent, and demonstrates normal Procedure augmentation. Exam performed in department. FV is compressible, spontaneous, phasic, The exam was diagnostic. competent and demonstrates normal A preliminary report was called and/or faxed augmentation. to Anjelica Moore. POP V is compressible, spontaneous, phasic, competent and demonstrates normal augmentation. T/P Trunk is compressible. PTV is compressible. LT PerV is compressible. Interpretation Summary Deep veins of the left lower extremity are patent and compressible segmentally. There is no evidence of left lower extremity deep vein thrombosis. Valvular competence appears intact within the proximal deep venous system on the left . The left great saphenous vein appears patent and compressible segmentally. Ordering Physician: Anjelica Moore Performed By: Jhonny Wilkinson RVT
== END ==
PROVIDERS: Family Provider Nurse Practitioner; PCP Nurse Practitioner; Referring Provider Nurse Practitioner; Visit Provider Nurse Practitioner
DX: M79.662 Pain in left lower leg (principal)
CPT/HCPCS: 93971

== ENCOUNTER → 2019-01-10 13:45 | Outpatient (CLI) | payer OTHER, SELFPAY ==
[2018-03-19 14:30] VITALS: BMI 32.2
--- NOTE | 2019-01-10 13:47 | US_ITS ---
STUDY: ULTRASOUND BREAST - RIGHT REASON FOR EXAM: Female, 68 years old. Abnormal screening mammogram. TECHNIQUE: Axial and longitudinal images of the RIGHT breast were performed with a high resolution ultrasound transducer. COMPARISON: Comparison is made with prior ultrasound of the breast dated September 03, 2018. FINDINGS: RIGHT Breast: Stable 3 mm x 3 mm x 3 mm hypoechoic well-defined nodule at the 3:00 position breast at 3 cm from the nipple. This is unchanged. A 6 month follow-up examination is recommended. US/Breast Limited Unilateral IMPRESSION: Stable examination. A six-month follow-up is recommended. ASSESSMENT CATEGORY: BIRADS Category 3: Probably Benign - Short-Interval Follow-up Suggested. A letter regarding these results will be sent to the patient by the facility within 30 days. Electronically Signed: Xu Davila, at 14:59 EDT , Service support ,
== END ==
PROVIDERS: Family Provider Nurse Practitioner; PCP Nurse Practitioner; Referring Provider Nurse Practitioner; Visit Provider Nurse Practitioner
DX: N63.0 Unspecified lump in unspecified breast (principal)
CPT/HCPCS: 76642

== ENCOUNTER → 2019-02-12 15:18 | Outpatient (CLI) | payer OTHER, SELFPAY ==
[2019-02-12 16:26] LABS: Amphetamine Urine VISTA NEGATIVE (<1000 ng/mL); Barbiturate Urine VISTA NEGATIVE (< 200 ng/mL); Benzodiazepine Urine VISTA NEGATIVE (< 200 ng/mL); Cocaine Urine VISTA NEGATIVE (< 300 ng/mL); Ecstacy Urine VISTA POSITIVE (< 500 ng/mL); Methadone Urine VISTA NEGATIVE (< 300 ng/mL); PCP Urine VISTA NEGATIVE (< 25 ng/mL); THC Urine VISTA POSITIVE (< 50 ng/mL); Vista UDS pH Range 5
== END ==
PROVIDERS: Family Provider Nurse Practitioner; PCP Nurse Practitioner; Referring Provider Anesthesiology Pain Medicine; Visit Provider Anesthesiology Pain Medicine
DX: F11.20 Opioid dependence, uncomplicated (principal)
CPT/HCPCS: 80307

== ENCOUNTER 2019-04-30 16:30 | Outpatient (RCR) | payer OTHER, SELFPAY ==
--- NOTE | 2019-04-25 15:33 | HP.PTEVAL ---
Patient's Visit Information SADIA LONGO is a 68 year old F referred to Physical Therapy by Yung Khanna MD with a diagnosis of BACK AND LEFT LEG PAIN.. Date of Evaluation: 04/25/19 Physical Therapist: Bambi Miguel PT, Cert MDT - Visit Plan Frequency: 2-3x /Week Duration: 4-6 Weeks Plan: GAIT AND BALANCE TRAINING. POSTURE CORRECTION/STRENGTHENING, INSTRUCTION IN APPROPRIATE BODY MECHANICS AND ACTIVITY MODIFICATIONS. DLS STARTING WITH A NEUTRAL SPINE PROGRESSING ROM TOLERATED. DOREEN LE ROM, STRETCHING AND STRENGTHENING. HEP INSTRUCTION. - Subjective Findings: Work/Leisure: RETIRED. HELPS TAKE CARE OF SON WITH HEAD INJURY. Disability: NO. Present symptoms: DOREEN LBP LEFT > RIGHT, RIGHT HIP, THIGH, LEG AND FOOT PAIN TO THE TOES AT TIME. Present since: CHRONIC. Pain Scale: WORST 9/10, LEAST 2/10. Currently: 11/30. Commenced as a result of: MULTIPLE FALLS. Symptoms at onset: LEFT LE. Worse: WALING MORE THAN 10 MINUTES, CROSSING LEGS, SITTING TOO MUCH, STANDING, WALKING WITH BALANCE PROBLEMS. BENDING, LIFTING, TWISITNG. Better: HEAT, BATH, PAIN MEDICINE. CURRENTLY DECREASING MEDS WITH DR. KHANNA. Disturbed sleep: YES. Previous history/Previous treatment: MIKA'S, PRESCRIPTION MEDICATION, PHYSICAL THERAPY AND ACUPUNCTURE. NO BACK SURGERY. NO CHIROPRACTOR. Coughing/sneezing/straining: NO. Gait: TIME AND DISTANCE LIMITED. PAINFUL. OFF BALANCE. SLOW. CANE DEPENDENT OUTSIDE THE HOME. WOBBLY. Difficulty initiating urinatin: YES. Accidents: UNREMARKABLE. Unexplained weight loss: NO. Imaging: NONE RECENT. BACK MRI ABOUT A YEAR AGO - SPONDYLOSIS, STENOSIS - 5 OR 6 THINGS DEGENERATIVE CHANGES REPORTED L2 TO S1 2017 - SEE [facility] EMR. PMH: FIBROMYALGIA, MIGRAINES, OSTEOPENIA, SWAN NECK DEFORMITY DOREEN FINGERS AND THUMB ARTHRITIS DOREEN. HYPOTHYROIDISM. DOREEN KNEE PAIN. CERVICAL LAMINECTOMY. - Objective Sitting/Standing Posture: POOR. Lordosis: REDUCED. Active Correction of posture: NE. Other Observations: INDEP GAIT INTO PT WITH WIDE BASE OF SUPPORT, CANE IS TOO HIGH (THIS PT ADJUSTED) AND DECREASED DOREEN STRIDE LENGTH. GAIT LOOKS ANTALGIC AND UNSTEADY BUT ANY LOSS OF BALANCE IS REGAINED INDEP'LY. Motor deficit: DOREEN LE'S GROSSLY 4-/5 EXCEPT HIPS 3+/5. Sensory deficit: DECREASED LIGHT TOUCH LEFT LEG AND FOOT COMPARED TO RIGHT. ROM deficit: TIGHT DOREEN HS'S AND GASTROC SOLEUS COMPLEXS. Reflexes: UNABLE TO ELICIT DOREEN LE DTR'S. Dural Signs: POSITIVE DOREEN LE'S. Lumbar mvmt loss: flex - MOD - INCREASES LBP DOREEN. LOSES BALANCE UPON RETURN BUT REGAINED INDEP'LY. ext - JHOANA - INCREASES LBP AND LLE SX'S. R SG - MOD - NE. L SG - JHOANA - PERIPHERALIZES. Core strength: POOR. Palpation: TENDERNESS WITH PALPATION OF THE ENTIRE LUMBOSACRAL REGIONS. - Goals Goal 1:: DECREASE C/O BACK AND LLE SX'S Goal Time Frame: 4-6 Weeks Goal 2:: IMPROVE PERSONAL CARE, LIFTING, WALKING, SITTING, STANDING, SOCIAL LIFE, TRAVEL AND HOMEMAKING FUNCTION. Goal Time Frame: 4-6 Weeks Goal 3:: INSTRUCT IN PROPHYLAXIS Goal Time Frame: 4-6 Weeks - Rehabilitation Potential Rehabilitation Potential: Fair - Anticipated Interventions Patient/Client Instruction: Educate patient on: Condition, Plan of Care, Risk Factors, Benefits of Fitness Program For the Purpose of:: To improve self management Therapeutic Exercise to Include: Strength training, Body mechanics, Postural training, Gait and locomotor training, Dynamic Lumbar Stabilization Comment: PATIENT REPORTS SHE IS ALLERGIC TO CHLORINE. For the Purpose of:: To decrease pain, To improve muscle performance and motor function, To increase tolerance to activity/condition/position, To improve ability of physical actions for home/community/work/leisure, To improve gait and locomotor functions Functional Training to Include: Gait training For the Purpose of:: To improve gait and locomotor functions Thank you for the opportunity to evaluate your patient. For Medicare and Medicare HMO plans, please review the plan of care and approve it. It will need to be FAXED BACK to us at [phone] for Medicare purposes. For Medicare only, by signing this I certify the plan of care. Please let me know if there are questions or concerns regarding this plan of care. Physician Signature: Date:
--- NOTE | 2019-05-30 11:36 | HP.PT.NRP ---
HP - Discharge Summary (1) - Patient Information SADIA LONGO was seen in my office for initial evaluation on 04/25/19. The following Plan of Care was established for this patient: Initial Frequency: 2-3x /Week Initial Duration: 4-6 Weeks - Anticipated Interventions Patient/Client Instruction: Educate patient on: Condition, Plan of Care, Risk Factors, Benefits of Fitness Program For the Purpose of:: To improve self management Therapeutic Exercise to Include: Strength training, Body mechanics, Postural training, Gait and locomotor training, Dynamic Lumbar Stabilization For the Purpose of:: To decrease pain, To improve muscle performance and motor function, To increase tolerance to activity/condition/position, To improve ability of physical actions for home/community/work/leisure, To improve gait and locomotor functions Functional Training to Include: Gait training For the Purpose of:: To improve gait and locomotor functions This patient was last seen in our office . Pertinent comments regarding their Physical therapy will appear below: This patient has not returned to Physical Therapy and is appropriate to return to MD for further follow-up as needed. At this point I will be discontinuing this patient from physical therapy. I would be happy to see this patient again in the future if found appropriate by the physician. Thank you! Bambi Miguel, PT, Cert MDT
== END 2019-04-30 19:00 | disposition home or self-care (01) ==
LOC: PT 16:30
PROVIDERS: Family Provider Nurse Practitioner; PCP Nurse Practitioner; Referring Provider Anesthesiology Pain Medicine; Visit Provider Anesthesiology Pain Medicine
DX: M54.9 Dorsalgia, unspecified (principal); R29.898 Other symptoms and signs involving the musculoskeletal system
CPT/HCPCS: 97110; 97162

== ENCOUNTER → 2019-06-04 16:10 | Outpatient (CLI) | payer OTHER, SELFPAY ==
--- NOTE | 2019-06-04 16:12 | RAD_ITS ---
STUDY: X-RAY CHEST REASON FOR EXAM: Female, 68 years old. cough x 1 month, sob TECHNIQUE: PA and lateral views of the chest. COMPARISON: Prior study of 11/16/2018 FINDINGS: The lungs are clear and expanded. There is no demonstrated pleural abnormality. Normal size heart. Normal mediastinum and krish. Normal visualized pulmonary arteries. There are calcified plaques of the thoracic aorta. Normal visualized thoracic spine. Normal visualized ribs, clavicles, and shoulders. There is no demonstrated abnormality of the visualized soft tissue structures of the upper abdomen. RAD/Chest PA and Lateral IMPRESSION: Calcified plaques of the thoracic aorta. No acute cardiopulmonary disease process is seen. Electronically Signed: Tom Osuna MD at 20:17 EST , Service support ,
[2019-06-04 16:35] LABS: D-Dimer Quantitative (DVT/PE) 0.47 FEU/ug/m (0.27-0.49)
[2019-06-04 16:36] LABS: BNP,B-Type NATRIURETIC PEPTIDE 14.8 pg/mL (0-100)
[2019-06-04 16:37] LABS: ALB/GLOB Ratio 0.9 RATIO (0.9-2.4); AST(SGOT) 12 U/L (15-37); Absolute Lymphocyte Count 2.84 X10^3/uL (0.83-4.51); Absolute Neutrophil Count 5.4 X10^3/uL (2.0-7.7); Alanine Aminotransfer ALT/SGPT 21 U/L (13-56); Albumin, Serum 3.4 g/dL (3.2-5.0); Alkaline Phosphatase 86 U/L (45-117); Anion Gap 4 (5-15); BUN 13 mg/dL (7-18); BUN/Creat Ratio 16.4 RATIO (10-20); Basophil# 0.06 X10^3/uL; Basophil% 0.7 % (0-1); Calcium,Total 8.9 mg/dL (8.5-10.1); Chloride 108 mmol/L (98-107); Creatinine, Serum 0.79 mg/dL (0.55-1.02); EST Glomerular Filtration Rate 77 mL/min (>60); Eosinophil# 0.18 X10^3/uL; Est Glom Filt Rate - Afr Amer 93 mL/min (>60); Globulin 3.9 g/dL (2.2-4.2); Glucose 73 mg/dL (74-106); Hematocrit 45.2 % (37-47); Hemoglobin 15.1 g/dL (12.0-15.0); Lymphocyte # 2.84 X10^3/ul (4.0); Lymphocyte % 30.8 % (19-41); Mean Corp Hgb Conc 33.4 g/dL (32-36); Mean Corpuscular Hgb 32.2 pg (27.0-32.0); Mean Corpuscular Volume 96.4 fL (81-99); Mean Platelet Vol. 9.3 fl (6.2-12.0); Monocyte% 7.6 % (0-10); NRBC Flagged by Analyzer 0 % (0-5); Neutrophil # 5.39 X10^3/uL (2.7-7.7); Neutrophil % 58.5 % (47-70); Platelet Count 209 K/mm3 (150-450); Potassium 3.7 mmol/L (3.5-5.1); Protein, Total 7.3 g/dL (6.4-8.2); RBC Distribution Width CV 12.6 % (11.6-14.6); RBC Distribution Width SD 44.8 fl (35.1-43.9); Red Blood Count 4.69 M/mm3 (4.2-5.4); Sodium Level 141 mmol/L (136-145); Thyroid Stim Hormone (TSH) 0.51 uIU/mL (0.358-3.74); White Blood Count 9.2 K/mm3 (4.4-11.0)
== END ==
PROVIDERS: PCP Nurse Practitioner; Referring Provider Nurse Practitioner; Visit Provider Nurse Practitioner
DX: R05 Cough (principal); R60.9 Edema, unspecified; I10 Essential (primary) hypertension
CPT/HCPCS: 36415; 71046; 80053; 83880; 84443; 85025; 85379

== ENCOUNTER → 2019-07-11 10:45 | Outpatient (CLI) | payer OTHER, SELFPAY ==
--- NOTE | 2019-07-11 10:48 | US_ITS ---
STUDY: ULTRASOUND BREAST - RIGHT REASON FOR EXAM: Female, 68 years old. Six-month follow-up examination. TECHNIQUE: Axial and longitudinal images of the RIGHT breast were performed with a high resolution ultrasound transducer. # OF IMAGES: 12 COMPARISON: Comparison is made with prior ultrasound of the breasts dated January 10, 2019. FINDINGS: RIGHT Breast: There is a 2 mm x 2 mm x 2 mm well-defined hypoechoic nodule at the 3:00 position of breast at 3 cm from the nipple. This is unchanged. Routine mammographic follow-up is recommended. US/Breast Limited Unilateral IMPRESSION: Stable examination. Routine annual mammographic follow-up is recommended. ASSESSMENT CATEGORY: BIRADS Category 2: Benign. A letter regarding these results will be sent to the patient by the facility within 30 days. Electronically Signed: Xu Davila, at 11:32 EDT , Service support ,
== END ==
PROVIDERS: PCP Nurse Practitioner; Referring Provider Nurse Practitioner; Visit Provider Nurse Practitioner
DX: R92.8 Other abnormal and inconclusive findings on diagnostic imaging of breast (principal)
CPT/HCPCS: 76642

== ENCOUNTER → 2020-01-16 15:34 | Outpatient (CLI) | payer OTHER, SELFPAY ==
--- NOTE | 2020-01-16 15:42 | MRI_ITS ---
STUDY: MRI BRAIN WITHOUT CONTRAST REASON FOR EXAM: Female, 69 years old. Memory changes TECHNIQUE: Standardized multiplanar fat and water weighted pulse sequences were obtained. COMPARISON: 01 March 2018 FINDINGS: Brain parenchyma is intact without focal lesions, mass effect, extra parenchymal fluid collections, hydrocephalus or herniation. There is mild bilateral frontal lobe atrophy and age appropriate white matter periventricular involutional changes. Major vascular flow structures are intact. Craniocervical junction is unremarkable. MRI/Brain without Contrast IMPRESSION: 1. No acute or focal findings. 2. Mild bifrontal atrophy. Electronically Signed: Marvel Dang, at 16:56 EDT Tel , Service support ,
== END ==
PROVIDERS: PCP Nurse Practitioner; Referring Provider Nurse Practitioner; Visit Provider Nurse Practitioner
DX: R41.3 Other amnesia (principal)
CPT/HCPCS: 70551

== ENCOUNTER 2020-05-07 15:57 | Emergency (ER) | payer OTHER, SELFPAY ==
[2020-05-07] VITALS (12 sets, daily range): BP systolic 128–146; BP diastolic 60–118; PULSE 85–97; RESP 12–20; TEMP 36–36.7; O2SAT 92–98; BMI 32.0
--- NOTE | 2020-05-07 17:01 | EKG12_ITS ---
Test Reason : Blood Pressure : / mmHG Vent. Rate : 089 BPM Atrial Rate : 089 BPM P-R Int : 142 ms QRS Dur : 096 ms QT Int : 390 ms P-R-T Axes : 062 044 016 degrees QTc Int : 474 ms Normal sinus rhythm Normal ECG Confirmed by DONNA GARZA, JENIFFER ([id number]), online editor LAI MCKEON ([id number]) on 05/12/2020 6:43:21 AM Referred By: BONIFACIO Confirmed By:JENIFFER THOMPSON MD
--- NOTE | 2020-05-07 17:03 | ED.DCSUM_ITS ---
History of Present Illness Chief Complaint: General Illness Informant: Patient Narrative: Patient is a 69-year-old female with a past medical history of hypertension, hypothyroidism who presents to the [facility] for generalized weakness and cough. She states that her cough initially started in late February but recently got worse over the past 4 days. She is bringing up a white sputum. She denies having fevers but has had some chills. Her did test positive for Covid at the end of February. She developed symptoms 2 days after him but never got tested. She states that she did have low pulse oximeter readings into the low 80s but never went to the hospital. She does have a history of asthma as well and has been using her inhaler. She feels like she is wheezing more often. This does help temporarily but she still having symptoms. She has a chest tightness. No significant shortness of breath. She has had some mild leg swelling. No calf tenderness. No history of DVT/PE. No urinary symptoms. She did have some diarrhea. One episode of vomiting yesterday. Past Medical History - Allergies and Home Meds Allergies/Adverse Reactions: Allergies amoxicillin trihydrate [From Augmentin] Allergy (Verified 05/07/20 16:00) Shortness of breath ITCHING, SWELLING, HIVES aspirin Allergy (Verified 05/07/20 16:00) Anaphylaxis atropine sulfate [From Lomotil] Allergy (Verified 05/07/20 16:00) Itching SHORTNESS OF BREATH, HIVES cefixime [From Suprax] Allergy (Verified 05/07/20 16:00) Itching SHORTNESS OF BREATH, HIVES ceftriaxone sodium [From Rocephin] Allergy (Verified 05/07/20 16:00) Itching SHORTNESS OF BREATH, HIVES cephalexin monohydrate [From Keflex] Allergy (Verified 05/07/20 16:00) Itching SHORTNESS OF BREATH, HIVES ciprofloxacin [From Cipro] Allergy (Verified 05/07/20 16:00) Shortness of breath ciprofloxacin HCl [From Cipro] Allergy (Verified 05/07/20 16:00) Shortness of breath clindamycin Allergy (Verified 05/07/20 16:00) Itching HIVES, SHORTNESS OF BREATH diphenoxylate HCl [From Lomotil] Allergy (Verified 05/07/20 16:00) Itching SHORTNESS OF BREATH, HIVES gentamicin [Gentamicin] Allergy (Verified 05/07/20 16:00) Itching SHORTNESS OF BREATH, HIVES hydromorphone HCl [From Exalgo ER] Allergy (Verified 05/07/20 16:00) Itching SHORTNESS OF BREATH, HIVES metoclopramide HCl [From Reglan] Allergy (Verified 05/07/20 16:00) Anaphylaxis Penicillins [PCN] Allergy (Verified 05/07/20 16:00) Itching SHORTNESS OF BREATH, HIVES phenazopyridine HCl [From Pyridium] Allergy (Verified 05/07/20 16:00) Itching SHORTNESS OF BREATH, HIVES potassium clavulanate [From Augmentin] Allergy (Verified 05/07/20 16:00) Shortness of breath ITCHING, SWELLING, HIVES povidone-iodine [From Betadine] Allergy (Verified 05/07/20 16:00) Itching IF INJESTED propoxyphene HCl [From Darvon] Allergy (Verified 05/07/20 16:00) Itching SHORTNESS OF BREATH, HIVES red dye Allergy (Verified 05/07/20 16:00) Itching SHORTNESS OF BREATH, HIVES soap [From Betadine] Allergy (Verified 05/07/20 16:00) Itching IF INJESTED Sulfa (Sulfonamide Antibiotics) Allergy (Verified 05/07/20 16:00) Itching SHORTNESS OF BREATH, HIVES adhesive tape Adverse Reaction (Severe, Verified 05/07/20 16:00) skin peels clarithromycin [From Biaxin] Adverse Reaction (Severe, Verified 05/07/20 16:00) Vomiting ketorolac tromethamine [From Toradol] Adverse Reaction (Severe, Verified 05/07/20 16:00) Vomiting itching verapamil [Verapamil] Adverse Reaction (Severe, Verified 05/07/20 16:00) Other 3RD DEGREE HEART BLOCK azithromycin Adverse Reaction (Intermediate, Verified 05/07/20 16:00) vomiting iodine Adverse Reaction (Unknown, Verified 05/07/20 16:00) Unknown levofloxacin [From Levaquin] Adverse Reaction (Unknown, Verified 05/07/20 16:00) Unknown phenazopyridine [From Pyridium] Adverse Reaction (Unknown, Verified 05/07/20 16:00) Unknown carbamazepine [From Tegretol] Adverse Reaction (Verified 05/07/20 16:00) Unknown duloxetine HCl [From Cymbalta] Adverse Reaction (Verified 05/07/20 16:00) Unknown gabapentin [From Neurontin] Adverse Reaction (Verified 05/07/20 16:00) Other stomach pain, peripheral edema guaifenesin [From Entex T] Adverse Reaction (Verified 05/07/20 16:00) Vomiting TACHYCARDIA midazolam HCl [From Versed] Adverse Reaction (Verified 05/07/20 16:00) Other NO AFFECT-OKAY WITH DIPROVAN morphine Adverse Reaction (Verified 05/07/20 16:00) Other INSOMNIA, HALLUCINATIONS phenobarbital Adverse Reaction (Verified 05/07/20 16:00) Other PERODOXICAL REACTION pseudoephedrine HCl [From Entex T] Adverse Reaction (Verified 05/07/20 16:00) Vomiting TACHYCARDIA quetiapine fumarate [From Seroquel] Adverse Reaction (Verified 05/07/20 16:00) Other dystonia C-CLOR Allergy (Uncoded 05/07/20 16:00) Shortness of breath CAT SCAN DYE Allergy (Uncoded 05/07/20 19:52) Rash swelling around her eyes CIPRO Allergy (Uncoded 05/07/20 16:00) Itching SHORTNESS OF BREATH, HIVES STERIODS Allergy (Uncoded 05/07/20 16:00) Other TRIGGERED ADDISONS DISEASE TAPE Adverse Reaction (Uncoded 05/07/20 16:00) Other SKIN PEELS XOPONEX Adverse Reaction (Uncoded 05/07/20 16:00) Other DISTONIA Primary Care Physician: Anjelica Moore [employer]ILLOFACIAL PATHOLOGIST, [employer] MAXILLOFACIAL PATHOLOGIST-C [Primary Care Provider] - 2 Days Prior records reviewed: Yes Past Medical History: - - Per HPI Surgical History: appendectomy, cholecystectomy, hysterectomy Smoking Status: Former smoker - Family History Paternal Family History: Family History (Last Reviewed 05/31/17 @ 14:32 by Henrietta Corbett) Father CAD (coronary artery disease) Mother CVA (cerebral vascular accident) Grandfather Heart disease Grandmother Heart disease Uncle Sudden cardiac , Onset Age: 30 Family History: Reports: High Cholesterol, Heart Disease, Hypertension Maternal Family History: Family History (Last Reviewed 05/31/17 @ 14:32 by Henrietta Corbett) Father CAD (coronary artery disease) Mother CVA (cerebral vascular accident) Grandfather Heart disease Grandmother Heart disease Uncle Sudden cardiac , Onset Age: 30 Family History: Reports: Stroke Review of Systems All systems negative except as indicated General: Reports: Chills, Malaise. Denies: Fever, Sweats Eyes: Denies: Visual changes - bilaterally, Diplopia ENT: Denies: Rhinorrhea, Sore throat Cardiovascular: Reports: Chest pain - Tightness. Denies: Palpitations Respiratory: Reports: Dyspnea, Cough Gastrointestinal: Reports: Nausea, Vomiting, Diarrhea. Denies: Abdominal pain, Melena, Hematochezia Genitourinary: Denies: Dysuria, Hematuria, Frequency Musculoskeletal: Denies: Back pain, Extremity Pain Skin: Denies: Rash, Wounds Neurological: Reports: Weakness - Generalized. Denies: Headache, Numbness Physical Exam Vital Signs/Narrative: Vital Signs Temp Pulse Resp BP Pulse Ox 05/07/20 15:57 96.8 F L 97 20 H 135/69 H 95 Inital Vital Signs reviewed: Yes General: Well developed, No Acute Distress, - - Ill but nontoxic-appearing Head: Normocephalic, Atraumatic Eyes: Perrl, EOMI ENT: Moist mucous membranes, No rhinorrhea Neck: Supple, Nontender Cardiovascular: Regular rhythm, No murmurs, Tachycardia - Borderline Respiratory: No distress, CTA bilaterally, Chest tenderness - Anterior lower ribs bilaterally Abdomen: Soft, Nontender, Nondistended, Normal bowel sounds Back: Nontender, Normal Inspection Extremities: Nontender, No edema, Edema - Trace bilaterally, symmetrical. Negative for: Calf Tenderness Skin: Normal color, No rash Neurological: Alert, Oriented x3, Cranial nerves II-XII grossly intact, Normal Strength, Normal Sensation Psychological: Normal affect, Normal Mood Diagnostic/Tx/Re-eval Chest X-Ray - ED: 1 View - Single view portable x-ray interpreted by myself. Clear lung lowery bilaterally. No pleural effusions. Normal cardiac silhouette. Normal mediastinum. Agree with radiologist interpretation. - EKG Initial EKG Interpretation: - - Rate of 89 bpm and normal sinus rhythm. Normal intervals. Normal axis. No significant ST elevations or depressions. No T wave abnormalities. - Medical Decision Making Patient presents to the emergency department for generalized weakness and cough. She is suspected to have coronavirus in late February/early March. Upon arrival to the emergency department she is satting well on room air. She is in no acute distress. Basic lab work, EKG and chest x-ray being obtained. Patient's work-up did not reveal any significant acute abnormality. Chest x-ray was clear. Coronavirus test was negative. Troponin within normal limits. EKG did not show any signs of ischemia or arrhythmia. Since she was feeling that this was an asthma exacerbation I did give a DuoNeb breathing treatment. She was feeling much better after this. She was able to ambulate with pulse ox and was satting around 93 to 94%. Because of the low pulse ox I discussed the p ossibility of a PE for status post Covid infection. It is likely due to asthma as she responded well to the DuoNeb. She was agreeable to getting the CT scan. She does have a contrast allergy and was pretreated with Solu-Medrol and Benadryl. She states that she talk to her allergy doctor about this previously and this is what they told her to do. She denies any throat swelling with her previous contrast injections. CT scan was performed after pretreatment. She did not have any evidence of PE or consolidation. She did have some minor face swelling but this did resolve prior to being discharged from the hospital. She was comfortable with this plan. Did write a short prescription for prednisone. She is to continue to use her albuterol inhaler at home. She is to follow-up with her PCP. Strict return precautions were discussed with her. She understands and is agreeable this plan. Discharged home in stable condition. All questions answered. ED Disposition - Plan for ED Patient: Disposition: Home or Assisted Living Diagnosis: Dyspnea Instructions: ED Dyspnea Prescriptions: Prednisone 40 mg PO DAILY 4 Days #8 tab Transmission Status: Received by [facility]/pharmacy #[id number] Referrals: Anjelica Moore NP, [employer] AND MAXILLOFACIAL PATHOLOGIST-C [Primary Care Provider] - 2 Days
--- NOTE | 2020-05-07 17:30 | RAD_ITS ---
STUDY: X-RAY CHEST REASON FOR EXAM: Female, 69 years old. patient with cough that is worsening TECHNIQUE: Frontal view of the chest COMPARISON: 05 January 2020 FINDINGS: The lungs are clear and expanded. There is no demonstrated pleural abnormality. Normal size heart. Normal mediastinum and krish. Normal visualized pulmonary arteries. Normal visualized aortic arch and descending thoracic aorta. Normal visualized thoracic spine. Normal visualized ribs, clavicles, and shoulders. There is no demonstrated abnormality of the visualized soft tissue structures of the upper abdomen. RAD/Chest 1 View (Portable) IMPRESSION: Normal x-ray examination of the chest. Electronically Signed: Marvel Dang MD at 17:50 EST Tel , Service support ,
[2020-05-07 18:02] LABS: Absolute Lymphocyte Count 2.14 X10^3/uL (0.83-4.51); Absolute Neutrophil Count 3.2 X10^3/uL (2.0-7.7); Basophil# 0.04 X10^3/uL; Basophil% 0.6 % (0-1); Eosinophil# 0.48 X10^3/uL; Eosinophils% 7.5 % (0-5); Hematocrit 44.7 % (37-47); Lymphocyte # 2.14 X10^3/ul (4.0); Lymphocyte % 33.6 % (19-41); Mean Corp Hgb Conc 33.6 g/dL (32-36); Mean Corpuscular Hgb 31.5 pg (27.0-32.0); Mean Corpuscular Volume 93.9 fL (81-99); Mean Platelet Vol. 9.8 fl (6.2-12.0); Monocyte# 0.52 X10^3/uL; Monocyte% 8.2 % (0-10); NRBC Flagged by Analyzer 0 % (0-5); Neutrophil # 3.17 X10^3/uL (2.7-7.7); Neutrophil % 49.9 % (47-70); Platelet Count 216 K/mm3 (150-450); RBC Distribution Width CV 13.7 % (11.6-14.6); RBC Distribution Width SD 47.1 fl (35.1-43.9); Red Blood Count 4.76 M/mm3 (4.2-5.4); White Blood Count 6.4 K/mm3 (4.4-11.0)
[2020-05-07 18:09] LABS: Red Blood Cells-Urine 0 SEEN /hpf (0-5); White Blood Cells 0 SEEN /hpf (0-5)
[2020-05-07 18:10] LABS: Bacteria 0 SEEN /hpf (None Seen)
[2020-05-07 18:14] LABS: Color, Urine Yellow (Yellow); Glucose, Dipstick Normal (Normal); Ketone-Dipstick Negative (Negative); Leukocyte Esterase-Dipstick Negative /ul (Negative); Nitrite-Dipstick Negative (Negative); Occult Blood-Urine Negative /ul (Negative); Protein-Dipstick Negative (Negative); Urine Bilirubin Dipstick Negative (Negative); Urine Clarity Clear (Clear); Urine Urobilinogen Normal (Normal)
[2020-05-07 18:17] LABS: Lactic Acid 1.1 mmol/L (0.4-1.9)
[2020-05-07 18:19] LABS: ALB/GLOB Ratio 0.9 RATIO (0.9-2.4); AST(SGOT) 15 U/L (15-37); Alanine Aminotransfer ALT/SGPT 27 U/L (13-56); Albumin, Serum 3.4 g/dL (3.2-5.0); Alkaline Phosphatase 73 U/L (45-117); Anion Gap 6 (5-15); BUN 12 mg/dL (7-18); BUN/Creat Ratio 16.6 RATIO (10-20); Calcium,Total 8.7 mg/dL (8.5-10.1); Chloride 110 mmol/L (98-107); Creatinine, Serum 0.72 mg/dL (0.55-1.02); EST Glomerular Filtration Rate 85 mL/min (>60); Est Glom Filt Rate - Afr Amer 103 mL/min (>60); Estimated Creatinine Clearance 43.18 ml/min; Globulin 3.9 g/dL (2.2-4.2); Glucose 90 mg/dL (74-106); Potassium 3.9 mmol/L (3.5-5.1); Protein, Total 7.3 g/dL (6.4-8.2); Sodium Level 141 mmol/L (136-145)
[2020-05-07 18:36] LABS: Mucous, Urine 1+ /hpf (<or=2+); Squamous Epithelial Cells - UA 0-5 SEEN /hpf (5-10)
[2020-05-07] MEDS: Ipratropium/Albuterol Sulfate 3 ML AMPUL.NEB INHALATION (19:00)
[2020-05-07] MEDS: MethylPREDNISolone 125 MG/2 ML Vial IV (19:47)
[2020-05-07] MEDS: DiphenhydrAMINE 50 MG/ML Syringe 25 MG IV (19:47)
--- NOTE | 2020-05-07 20:50 | CT_ITS ---
STUDY: CTA CHEST REASON FOR EXAM: Female, 69 years old. DYSPNEA WITH MILD HYPOXIA/EVAL FOR PE RADIATION DOSAGE (If Supplied By Facility): CTDIvol = ( 10.33 ) mGy, DLP = ( 496.84 ) mGycm TECHNIQUE: The examination was performed with the intravenous administration of IV 75mL Isovue-370. Post-processing of the angiographic images was performed, with multiplanar reformation and 3D reconstruction. Individualized dose optimization techniques were used for this CT. COMPARISON: None. FINDINGS: There is linear opacity in the right lower lobe which on the represent scarring or atelectasis. There are no focal infiltrates. There are no pleural effusions. There is no pneumothorax. There is no pulmonary embolus. There is no thoracic aortic aneurysm or dissection. The heart and pericardium are within normal limits. There is no thoracic lymphadenopathy. Images through the upper abdomen demonstrate cholecystectomy clips. There are no destructive osseous lesions. CT/CTA Chest W/WO Contrast IMPRESSION: No evidence of pulmonary embolus. No evidence of thoracic aortic aneurysm or dissection. Linear opacity in the right lower lobe which represents either scarring or atelectasis. Otherwise, clear lungs. Electronically Signed: Yon Ferraro MD at 21:08 EST Tel , Service support ,
== END 2020-05-07 22:18 | disposition home or self-care (01) ==
PROVIDERS: Emergency Provider Emergency Medicine; PCP Nurse Practitioner
DX: R06.00 Dyspnea, unspecified (principal); R05 Cough; R53.1 Weakness; R07.89 Other chest pain; R19.7 Diarrhea, unspecified; R11.2 Nausea with vomiting, unspecified; I10 Essential (primary) hypertension; E03.9 Hypothyroidism, unspecified; J45.909 Unspecified asthma, uncomplicated; Z79.899 Other long term (current) drug therapy; Z87.891 Personal history of nicotine dependence
CPT/HCPCS: 71045; 71275; 80053; 81001; 83605; 84484; 85025; 87426; 93005; 94640; 94760; 96374; 96375; 99284; Q9967; A4216

== ENCOUNTER 2020-06-01 04:35 | Emergency (ER) | payer OTHER, SELFPAY ==
[2020-05-07 15:57] VITALS: BMI 32.0
[2020-06-01 04:35] VITALS: BP 182/88; PULSE 110; RESP 18; TEMP 36.6; O2SAT 95; BMI 31.9
--- NOTE | 2020-06-01 04:50 | CT_ITS ---
STUDY: CT ABDOMEN AND PELVIS WITHOUT CONTRAST REASON FOR EXAM: Female, 69 years old. RLQ AND RT FLANK PAIN/VOMITING. Hx of diabetes, HTN, hypothyroid, prior cholecystectomy and appendectomy RADIATION DOSAGE (If Supplied By Facility): CTDIvol = ( 10.93 ) mGy, DLP = ( 576.31 ) mGycm TECHNIQUE: Transaxial images were obtained from the dome of the diaphragm to the symphysis pubis without oral contrast, and without intravenous contrast. Sagittal and coronal images were reconstructed. Individualized dose optimization techniques were used for this CT. COMPARISON: None. FINDINGS: The visualized lung bases are unremarkable. The visualized portions of the heart are within normal limits. Normal liver. There are surgical clips in the gallbladder fossa consistent with a prior cholecystectomy. Normal spleen. Normal pancreas. Normal bilateral adrenal glands. There is mild right-sided hydronephrosis and hydroureter may be due to recently passed stone or to pyelonephritis. Normal left kidney. Normal visualized stomach. Normal small intestine. There are multiple colonic diverticula consistent with diverticulosis. There is non-visualization of the appendix. Normal abdominal aorta. Normal inferior vena cava. Normal retroperitoneum. Normal urinary bladder. Normal abdominal wall. Normal osseous structures. CT/Abdomen/Pelvis without Cont IMPRESSION: There is mild right-sided hydronephrosis and hydroureter may be due to recently passed stone or to pyelonephritis. Electronically Signed: Apryl Melendez MD at 6:20 EST Tel , Service support ,
--- NOTE | 2020-06-01 04:51 | ED.DCSUM_ITS ---
History of Present Illness Chief Complaint: Abd Pain Narrative: Patient is a 69-year-old female who presents with sudden onset severe right lower quadrant and right flank pain. This began about 3 hours ago. She also reports nausea with nonbloody nonbilious vomiting. No diarrhea. She does complain of a sense of urinary urgency. No fevers. She did have Covid and complains of some persistent shortness of breath but otherwise has been in her baseline health. No history of ureterolithiasis. She does have a history of prior appendectomy and cholecystectomy. Past Medical History - Allergies and Home Meds Allergies/Adverse Reactions: Allergies amoxicillin trihydrate [From Augmentin] Allergy (Verified 06/01/20 04:40) Shortness of breath ITCHING, SWELLING, HIVES aspirin Allergy (Verified 06/01/20 04:40) Anaphylaxis atropine sulfate [From Lomotil] Allergy (Verified 06/01/20 04:40) Itching SHORTNESS OF BREATH, HIVES cefixime [From Suprax] Allergy (Verified 06/01/20 04:40) Itching SHORTNESS OF BREATH, HIVES ceftriaxone sodium [From Rocephin] Allergy (Verified 06/01/20 04:40) Itching SHORTNESS OF BREATH, HIVES cephalexin monohydrate [From Keflex] Allergy (Verified 06/01/20 04:40) Itching SHORTNESS OF BREATH, HIVES ciprofloxacin [From Cipro] Allergy (Verified 06/01/20 04:40) Shortness of breath ciprofloxacin HCl [From Cipro] Allergy (Verified 06/01/20 04:40) Shortness of breath clindamycin Allergy (Verified 06/01/20 04:40) Itching HIVES, SHORTNESS OF BREATH diphenoxylate HCl [From Lomotil] Allergy (Verified 06/01/20 04:40) Itching SHORTNESS OF BREATH, HIVES gentamicin [Gentamicin] Allergy (Verified 06/01/20 04:40) Itching SHORTNESS OF BREATH, HIVES hydromorphone HCl [From Exalgo ER] Allergy (Verified 06/01/20 04:40) Itching SHORTNESS OF BREATH, HIVES metoclopramide HCl [From Reglan] Allergy (Verified 06/01/20 04:40) Anaphylaxis Penicillins [PCN] Allergy (Verified 06/01/20 04:40) Itching SHORTNESS OF BREATH, HIVES phenazopyridine HCl [From Pyridium] Allergy (Verified 06/01/20 04:40) Itching SHORTNESS OF BREATH, HIVES potassium clavulanate [From Augmentin] Allergy (Verified 06/01/20 04:40) Shortness of breath ITCHING, SWELLING, HIVES povidone-iodine [From Betadine] Allergy (Verified 06/01/20 04:40) Itching IF INJESTED propoxyphene HCl [From Darvon] Allergy (Verified 06/01/20 04:40) Itching SHORTNESS OF BREATH, HIVES red dye Allergy (Verified 06/01/20 04:40) Itching SHORTNESS OF BREATH, HIVES soap [From Betadine] Allergy (Verified 06/01/20 04:40) Itching IF INJESTED Sulfa (Sulfonamide Antibiotics) Allergy (Verified 06/01/20 04:40) Itching SHORTNESS OF BREATH, HIVES adhesive tape Adverse Reaction (Severe, Verified 06/01/20 04:40) skin peels clarithromycin [From Biaxin] Adverse Reaction (Severe, Verified 06/01/20 04:40) Vomiting ketorolac tromethamine [From Toradol] Adverse Reaction (Severe, Verified 06/01/20 04:40) Vomiting itching verapamil [Verapamil] Adverse Reaction (Severe, Verified 06/01/20 04:40) Other 3RD DEGREE HEART BLOCK azithromycin Adverse Reaction (Intermediate, Verified 06/01/20 04:40) vomiting iodine Adverse Reaction (Unknown, Verified 06/01/20 04:40) Unknown levofloxacin [From Levaquin] Adverse Reaction (Unknown, Verified 06/01/20 04:40) Unknown phenazopyridine [From Pyridium] Adverse Reaction (Unknown, Verified 06/01/20 04:40) Unknown carbamazepine [From Tegretol] Adverse Reaction (Verified 06/01/20 04:40) Unknown duloxetine HCl [From Cymbalta] Adverse Reaction (Verified 06/01/20 04:40) Unknown gabapentin [From Neurontin] Adverse Reaction (Verified 06/01/20 04:40) Other stomach pain, peripheral edema guaifenesin [From Entex T] Adverse Reaction (Verified 06/01/20 04:40) Vomiting TACHYCARDIA midazolam HCl [From Versed] Adverse Reaction (Verified 06/01/20 04:40) Other NO AFFECT-OKAY WITH DIPROVAN morphine Adverse Reaction (Verified 06/01/20 04:40) Other INSOMNIA, HALLUCINATIONS phenobarbital Adverse Reaction (Verified 06/01/20 04:40) Other PERODOXICAL REACTION pseudoephedrine HCl [From Entex T] Adverse Reaction (Verified 06/01/20 04:40) Vomiting TACHYCARDIA quetiapine fumarate [From Seroquel] Adverse Reaction (Verified 06/01/20 04:40) Other dystonia C-CLOR Allergy (Uncoded 05/07/20 16:00) Shortness of breath CAT SCAN DYE Allergy (Uncoded 05/07/20 19:52) Rash swelling around her eyes CIPRO Allergy (Uncoded 05/07/20 16:00) Itching SHORTNESS OF BREATH, HIVES STERIODS Allergy (Uncoded 05/07/20 16:00) Other TRIGGERED ADDISONS DISEASE TAPE Adverse Reaction (Uncoded 05/07/20 16:00) Other SKIN PEELS XOPONEX Adverse Reaction (Uncoded 05/07/20 16:00) Other DISTONIA Primary Care Physician: Anjeilca Moore SANDING MACHINE BUFFER, SANDING MACHINE BUFFER-C [Primary Care Provider] - Past Medical History: - - Hypertension, hypothyroidism, fibromyalgia Surgical History: appendectomy, cholecystectomy, hysterectomy Smoking Status: Former smoker - Family History Paternal Family History: Family History (Last Reviewed 05/31/17 @ 14:32 by Henrietta Corbett) Father CAD (coronary artery disease) Mother CVA (cerebral vascular accident) Grandfather Heart disease Grandmother Heart disease Uncle Sudden cardiac , Onset Age: 30 Family History: Reports: High Cholesterol, Heart Disease, Hypertension Maternal Family History: Family History (Last Reviewed 05/31/17 @ 14:32 by Henrietta Corbett) Father CAD (coronary artery disease) Mother CVA (cerebral vascular accident) Grandfather Heart disease Grandmother Heart disease Uncle Sudden cardiac , Onset Age: 30 Family History: Reports: Stroke Review of Systems All systems negative except as indicated General: Denies: Fever Eyes: Denies: Visual changes - bilaterally ENT: Denies: Bilateral ear pain Cardiovascular: Denies: Chest pain Respiratory: Denies: Dyspnea Gastrointestinal: Reports: Abdominal pain, Nausea, Vomiting. Denies: Diarrhea Genitourinary: Reports: - - Urinary urgency Musculoskeletal: Denies: Myalgias, Arthralgias Skin: Denies: Rash Neurological: Denies: Headache Hematologic: Denies: Easy bruising Allergy: Denies: Uticaria Physical Exam Vital Signs/Narrative: Vital Signs Temp Pulse Resp BP Pulse Ox 06/01/20 04:35 97.9 F 110 H 18 182/88 H 95 Inital Vital Signs reviewed: Yes General: Well nourished, Well developed Head: Normocephalic, Atraumatic Eyes: EOMI ENT: Moist mucous membranes Neck: Supple Cardiovascular: Regular rhythm, Tachycardia Respiratory: No distress, CTA bilaterally Abdomen: Soft, - - Patient has diffuse abdominal tenderness greatest in the right lower abdomen Back: CVA tenderness - Right CVA tenderness Extremities: Nontender Skin: Normal color Neurological: Alert Psychological: Normal affect Diagnostic/Tx/Re-eval Impressions Abdomen/Pelvis CT 06/01/20 04:50 IMPRESSION: There is mild right-sided hydronephrosis and hydroureter may be due to recently passed stone or to pyelonephritis. Electronically Signed: Apryl Melendez MD at 6:20 EST Tel , Service support , 06/01/20 04:50 Abdomen/Pelvis without Cont [CT] Stat Laboratory Results 06/01/20 06/01/20 06/01/20 04:56 04:56 05:36 WBC 10.3 RBC 4.93 Hgb 15.5 H Hct 45.8 MCV 92.9 MCH 31.4 MCHC 33.8 RDW Std Deviation 45.3 H RDW Coeff of Doreen 13.2 Plt Count 211 MPV 9.5 Immature Gran % (Auto) 0.500 Neut % (Auto) 76.8 H Lymph % (Auto) 14.5 L [place] % (Auto) 6.9 Eos % (Auto) 0.8 Baso % (Auto) 0.5 Absolute Neuts (auto) 7.9 H Absolute Lymphs (auto) 1.49 Nucleated RBC % 0 Sodium 138 Potassium 3.1 L Chloride 101 Carbon Dioxide 30.0 Anion Gap 7 BUN 17 Creatinine 1.03 H Estim Creat Clear Calc 41.92 Est GFR (MDRD) Af Amer 69 Est GFR (MDRD) Non-Af 57 L BUN/Creatinine Ratio 16.5 Glucose 187 H Calcium 9.1 Total Bilirubin 0.40 AST 17 ALT 20 Alkaline Phosphatase 81 Total Protein 7.5 Albumin 3.6 Globulin 3.9 Albumin/Globulin Ratio 0.9 Urine Color Yellow Urine Clarity Sl. Cloudy Urine pH 5.0 Ur Specific [place] 1.025 Urine Protein 30 H Urine Glucose (UA) Normal Urine Ketones 5 H Urine Occult Blood 250 H Urine Nitrite Negative Urine Bilirubin Negative Urine Urobilinogen Normal Ur Leukocyte Esterase 25 H Urine RBC 50-100 SEEN Urine WBC 0-5 SEEN Ur Squamous Epith Cells 0-5 SEEN Ur Transition Epith Cell 0-5 SEEN Urine Bacteria 1+ Hyaline Casts 10-25 SEEN Urine Mucus 2+ - Medical Decision Making Patient was treated with IV fluids morphine and Zofran. She feels greatly improved on reevaluation. Her pain is not completely resolved but it is minimal and tolerable. Her serum laboratory studies are unremarkable. Urinalysis is notable for hematuria. CT of the abdomen and pelvis does show mild hydroureter. This is most suggestive of a recently passed stone. Patient advised on supportive care. She was given a referral to urology for follow-up. She understands to return for new or worsening symptoms. Patient agreeable to the plan. Patient discharged. ED Disposition - Plan for ED Patient: Disposition: Home or Assisted Living Diagnosis: Ureteral colic Instructions: ED Kidney Stone, Passed Referrals: Anjelica Moore NP, SANDING MACHINE BUFFER-C [Primary Care Provider] - Cosmo Martin MD [STAFF PHYSICIAN] -
[2020-06-01] MEDS: 0.9% Normal Saline 1,000 ML 1000 ML IV (04:55)
[2020-06-01] MEDS: Ondansetron 4 MG/2 ML Vial IV (04:56)
[2020-06-01] MEDS: Morphine 4 MG/ML Syringe IV (04:57)
[2020-06-01 05:04] LABS: Absolute Lymphocyte Count 1.49 X10^3/uL (0.83-4.51); Absolute Neutrophil Count 7.9 X10^3/uL (2.0-7.7); Basophil# 0.05 X10^3/uL; Basophil% 0.5 % (0-1); Eosinophil# 0.08 X10^3/uL; Eosinophils% 0.8 % (0-5); Hematocrit 45.8 % (37-47); Hemoglobin 15.5 g/dL (12.0-15.0); Lymphocyte # 1.49 X10^3/ul (4.0); Lymphocyte % 14.5 % (19-41); Mean Corp Hgb Conc 33.8 g/dL (32-36); Mean Corpuscular Hgb 31.4 pg (27.0-32.0); Mean Corpuscular Volume 92.9 fL (81-99); Mean Platelet Vol. 9.5 fl (6.2-12.0); Monocyte# 0.71 X10^3/uL; Monocyte% 6.9 % (0-10); NRBC Flagged by Analyzer 0 % (0-5); Neutrophil # 7.88 X10^3/uL (2.7-7.7); Neutrophil % 76.8 % (47-70); Platelet Count 211 K/mm3 (150-450); RBC Distribution Width CV 13.2 % (11.6-14.6); RBC Distribution Width SD 45.3 fl (35.1-43.9); Red Blood Count 4.93 M/mm3 (4.2-5.4); White Blood Count 10.3 K/mm3 (4.4-11.0)
[2020-06-01 05:20] LABS: ALB/GLOB Ratio 0.9 RATIO (0.9-2.4); AST(SGOT) 17 U/L (15-37); Alanine Aminotransfer ALT/SGPT 20 U/L (13-56); Albumin, Serum 3.6 g/dL (3.2-5.0); Alkaline Phosphatase 81 U/L (45-117); Anion Gap 7 (5-15); BUN 17 mg/dL (7-18); BUN/Creat Ratio 16.5 RATIO (10-20); Calcium,Total 9.1 mg/dL (8.5-10.1); Chloride 101 mmol/L (98-107); Creatinine, Serum 1.03 mg/dL (0.55-1.02); EST Glomerular Filtration Rate 57 mL/min (>60); Est Glom Filt Rate - Afr Amer 69 mL/min (>60); Estimated Creatinine Clearance 41.92 ml/min; Globulin 3.9 g/dL (2.2-4.2); Glucose 187 mg/dL (74-106); Potassium 3.1 mmol/L (3.5-5.1); Protein, Total 7.5 g/dL (6.4-8.2); Sodium Level 138 mmol/L (136-145)
[2020-06-01 05:41] LABS: Color, Urine Yellow (Yellow); Glucose, Dipstick Normal (Normal); Ketone-Dipstick 5 mg/dl (Negative); Leukocyte Esterase-Dipstick 25 /ul (Negative); Nitrite-Dipstick Negative (Negative); Occult Blood-Urine 250 /ul (Negative); Protein-Dipstick 30 mg/dl (Negative); Specific Gravity, Urine 1.025 (1.002-1.030); Urine Bilirubin Dipstick Negative (Negative); Urine Clarity Sl. Cloudy (Clear); Urine Urobilinogen Normal (Normal)
[2020-06-01 05:47] LABS: Red Blood Cells-Urine 50-100 SEEN /hpf (0-5); White Blood Cells 0-5 SEEN /hpf (0-5)
[2020-06-01 05:48] LABS: Mucous, Urine 2+ /hpf (<or=2+)
[2020-06-01 05:49] LABS: Bacteria 1+ /hpf (None Seen); Hyaline Cast 10-25 SEEN /lpf (0-5); Transitional Epithelial - Ur 0-5 SEEN /hpf (0-5)
[2020-06-01 05:50] LABS: Squamous Epithelial Cells - UA 0-5 SEEN /hpf (5-10)
[2020-06-01 06:53] VITALS: BP 123/73; PULSE 91; RESP 18; O2SAT 94
== END 2020-06-01 06:54 | disposition home or self-care (01) ==
PROVIDERS: Emergency Provider Emergency Medicine; PCP Nurse Practitioner
DX: N13.30 Unspecified hydronephrosis (principal); I10 Essential (primary) hypertension; E03.9 Hypothyroidism, unspecified; M79.7 Fibromyalgia; Z86.16 Personal history of COVID-19; Z90.49 Acquired absence of other specified parts of digestive tract; Z79.899 Other long term (current) drug therapy; Z87.891 Personal history of nicotine dependence
CPT/HCPCS: 74176; 80053; 81001; 85025; 96361; 96374; 96375; 99284; J7030; J2405

== ENCOUNTER → 2020-07-09 08:58 | Outpatient (CLI) | payer OTHER, SELFPAY | PROVIDERS: PCP Nurse Practitioner; Visit Provider Nurse Practitioner | DX: Z00.00 Encounter for general adult medical examination without abnormal findings (principal) ==

== ENCOUNTER → 2020-07-09 15:55 | Outpatient (CLI) | payer OTHER, SELFPAY ==
[2020-07-09 15:40] LABS: Hematocrit 46.2 % (37-47); Mean Corp Hgb Conc 34.6 g/dL (32-36); Mean Corpuscular Hgb 32.3 pg (27.0-32.0); Mean Corpuscular Volume 93.1 fL (81-99); Mean Platelet Vol. 10.3 fl (6.2-12.0); Platelet Count 284 K/mm3 (150-450); RBC Distribution Width SD 44.5 fl (35.1-43.9); Red Blood Count 4.96 M/mm3 (4.2-5.4); White Blood Count 13.8 K/mm3 (4.4-11.0)
[2020-07-09 15:41] LABS: Albumin, Serum 3.8 g/dL (3.2-5.0); BUN 17 mg/dL (7-18); BUN/Creat Ratio 19.4 RATIO (10-20); Calcium,Total 9.2 mg/dL (8.5-10.1); Chloride 105 mmol/L (98-107); Creatinine, Serum 0.88 mg/dL (0.55-1.02); EST Glomerular Filtration Rate 68 mL/min (>60); Est Glom Filt Rate - Afr Amer 83 mL/min (>60); Glucose 108 mg/dL (74-106); Phosphorus 3.2 mg/dL (2.5-4.9); Sodium Level 140 mmol/L (136-145)
--- NOTE | 2020-07-09 15:59 | CT_ITS ---
We are attempting to reach an attending provider to discuss findings. An addendum with communication details will be sent when the communication is complete. STUDY: CT ABDOMEN AND PELVIS WITHOUT CONTRAST REASON FOR EXAM: Female, 69 years old. Flank pain. History right kidney stone. History of appendectomy and hysterectomy. RADIATION DOSAGE (If Supplied By Facility): CTDIvol = ( 10.57 ) mGy, DLP = ( 531.65 ) mGycm TECHNIQUE: Axial CT images of the abdomen and pelvis were obtained without IV contrast administration. Multiplanar reconstructions. The protocol utilizes one or more of the following dose reduction techniques: automated exposure control, adjustment of mA and/or kV according to patient size, and/or use of iterative reconstruction technique. COMPARISON: No relevant priors. FINDINGS: Lower Chest Lungs: Normal. There is elevation of the right hemidiaphragm. Heart: Normal. Ribs: Normal. Organs / Endocrine Liver: Normal. Gallbladder / Biliary Tree: Status post cholecystectomy with metallic clips in the gallbladder fossa. Pancreas: Normal. Spleen: Normal. Adrenal Glands: Normal. Peritoneum Fluid Collections: None. Free Air: None. Intestinal Tract Stomach: Small hiatal hernia. The stomach is otherwise unremarkable Small Intestine: Normal. Appendix: Appendix is not visualized. Colon: Colonic diverticulosis without acute inflammatory change. Urinary System Kidney (right): Normal. Kidney (left): Normal. Ureter (right): Normal. Ureter (left): Normal. Bladder: Normal. Reproductive Organs Unremarkable vaginal cuff. Vessels Aorta: Diffuse atherosclerotic calcification of the abdominal aorta, without a demonstrated aneurysm. Inferior Vena Cava: Normal. Iliac Arteries: Normal. Lymph Nodes Retroperitoneal: Normal. Iliac / Inguinal: Normal. Mesenteric: Non-visualized. Bones Vertebrae: Normal. Pelvis / Sacrum: Normal. Abdominal Wall / Inguinal Region Defect: None. Hernia: Small umbilical hernia of omental fat. CT/Abdomen/Pelvis without Cont IMPRESSION: 1. No evidence of renal, ureteral or urinary bladder abnormality. 2. Colonic diverticulosis without acute inflammatory. 3. Status post cholecystectomy, hysterectomy and appendectomy. Electronically Signed: Marshall Landaverde DO at 16:33 EDT Tel [phone], Service support ,
== END ==
PROVIDERS: PCP Nurse Practitioner; Referring Provider Nurse Practitioner; Visit Provider Nurse Practitioner
DX: R10.9 Unspecified abdominal pain (principal)
CPT/HCPCS: 74176; 80069; 85027

== ENCOUNTER → 2020-09-14 13:17 | Outpatient (CLI) | payer OTHER, SELFPAY ==
--- NOTE | 2020-09-14 13:22 | BI_ITS ---
MAMMOGRAPHY - BILATERAL SCREENING REASON FOR EXAM: Female, 69 years old. Routine annual screening examination. PERTINENT HISTORY: Aunt with breast cancer. Remote left needle biopsy. TECHNIQUE: Digital bilateral breast tina (3D mammographic acquisition) in the CC and MLO projections. 2-D mediolateral oblique (MLO) and craniocaudad (CC) views of both breasts were obtained. CAD: Full Field Digital Mammography with Computer Added Detection was performed. COMPARISON: Comparison is made with prior study dated 08/23/2018 and 08/22/2017. FINDINGS: Breast Composition: There are scattered areas of fibroglandular density. There are no dominant masses or suspicious calcifications. Stable 4 mm x 4 mm well-defined nodule in the slightly inferior inner quadrant of the right breast. No other significant abnormalities are identified. There has been no significant change since the prior study. BI/SCRN MAMM (CAD)W/TINA BILAT IMPRESSION: Stable bilateral screening mammogram. Yearly follow-up mammogram recommended. (A) ASSESSMENT CATEGORY: BIRADS Category 2: Benign. A letter regarding these results will be sent to the patient by the facility within 30 days. Approximately 10% of breast cancers are not detected by mammography. A normal mammogram should not delay biopsy of a clinically suspicious abnormality. [id number] Electronically Signed: Xu Davila MD at 14:10 EDT , Service support ,
--- NOTE | 2020-09-14 14:00 | BD_ITS ---
STUDY: DUAL ENERGY X-RAY ABSORPTIOMETRY / DXA REASON FOR EXAM: Female, 69 years old. [id number]. The patient is postmenopausal. Loss of height. TECHNIQUE: Bone Mineral Density (BMD) measurements of lumbar spine and bilateral hips were obtained. COMPARISON: Comparison is made with prior study dated 02/13/2017. FINDINGS: Lumbar Spine (L1-L4): g/cm2 (0.991) / T-score (-1.4) / Z-score (0.2) Findings are suggestive of osteopenia with a low fracture risk. Left Femur Total: g/cm2 (0.811) / T-score (-1.6) / Z-score (-0.2) Left Femoral Neck: g/cm2 (0.747) / T-score (-2.1) / Z-score (-0.5) Right Femur Total: g/cm2 (0.884) / T-score (-1.0) / Z-score (0.4) Right Femoral Neck: g/cm2 (0.823) / T-score (-1.5) / Z-score (0.0) The T-Scores on the most recent prior examination were: Lumbar Spine (L1-L4): There has been improvement of bone density since the previous examination. Left Femur Total: which represents an improvement of 2.9%. Right Femur Total: which represents an improvement of 2.9%. BD/Dexa Bone Density Study IMPRESSION: The patient is considered osteopenic as outlined below according to World Jesse Organization (WHO) criteria with a moderate fracture risk. There has been improvement of bone density since the previous examination. Reference Information: The T-score is the number of standard deviations above or below the standard which is normal for young adults at their peak bone mineral density. The World Health Organization (WHO) interprets the T-scores as follows: Above -1 Normal bone density Between -1 and -2.5 Osteopenia Equal to / or below -2.5 Osteoporosis As a practical clinical guideline, osteopenia may be graded as follows: Mild -1 through -1.5 Moderate -1.6 through -2.0 Severe -2.1 through -2.4 The Z-score is the number of standard deviations above or below age-matched controls. A Z-score of less than -1.5 would be considered abnormal. References: 1. NIH Osteoporosis and Related Bone Diseases www osteo.org 2. International Society for Clinical Densitometry www iscd.org 3. National Osteoporosis Foundation www nof.org Electronically Signed: Xu Davila MD at 15:45 EDT , Service support ,
== END ==
PROVIDERS: PCP Nurse Practitioner; Referring Provider Nurse Practitioner; Visit Provider Nurse Practitioner
DX: Z12.31 Encounter for screening mammogram for malignant neoplasm of breast (principal); Z78.0 Asymptomatic menopausal state
CPT/HCPCS: 77063; 77067; 77080

== ENCOUNTER → 2020-11-23 12:54 | Outpatient (CLI) | payer OTHER, SELFPAY ==
--- NOTE | 2020-11-23 12:58 | ECHOD_ITS ---
Reason For Study: Chest Pain Procedure This was a 2D Doppler, Color Flow transthoracic echocardiogram. The study was technically difficult. Exam performed in department. Left Ventricle Normal LV size. Left ventricular systolic function is normal. The estimated ejection fraction is 65 %. Diastolic function is indeterminate. No regional wall motion abnormalities noted. Right Ventricle Normal RV size. Normal systolic function. Atria Normal left atrium. Normal right atrium. No doppler evidence for ASD. Mitral Valve There is no mitral annular calcification. Normal mitral valve. Trivial mitral valve insufficiency. Tricuspid Valve Normal tricuspid valve. Trivial tricuspid valve insufficiency. Unable to estimate RV systolic pressure/pulmonary artery pressure due to technically difficult study. Aortic Valve Trisinus/trileaflet aortic valve. Normal aortic valve. Pulmonic Valve The pulmonic valve is not well visualized. Great Vessels Normal sized aortic root. Pericardium/Pleural Trivial pericardial effusion. There are no echocardiographic indications of cardiac tamponade. Epicardial fat. MMode/2D Measurements & Calculations LVIDd: 3.6 cm IVSd: 0.95 cm Ao root diam: 2.5 cm LVIDs: 2.0 cm LVPWd: 0.75 cm LA dimension: 3.4 cm FS: 44.0 % LAV(MOD-sp4): 33.1 ml LA A4 area: 13.1 cm2 RA A4 area: 9.1 cm2 Time Measurements MV dec time: 0.34 sec Doppler Measurements & Calculations MV E max gavin: 57.0 cm/sec Lat Peak E' Gavin: 7.2 cm/sec Med Peak E' Gavin: 6.8 cm/sec MV A max gavin: 77.0 cm/sec E/E' lat: 7.9 E/E' med: 8.3 MV E/A: 0.74 MV V2 max: 87.9 cm/sec MV P1/2t max gavin: 62.6 cm/sec Ao V2 max: 95.2 cm/sec MV max P.1 mmHg MV P1/2t: 73.2 msec Ao max P.6 mmHg MV V2 mean: 40.9 cm/sec MV dec slope: 250.2 cm/sec2 MV mean P.82 mmHg MVA(P1/2t): 3.0 cm2 MV V2 VTI: 19.0 cm LV V1 max: 88.3 cm/sec PA V2 max: 97.3 cm/sec LV V1 max P.1 mmHg ECHO/Echo Complete Interpretation Summary The study was technically difficult. Left ventricular systolic function is normal. The estimated ejection fraction is 65 %. Trivial mitral valve insufficiency. Trivial tricuspid valve insufficiency. Trivial pericardial effusion. There are no echocardiographic indications of cardiac tamponade. Epicardial fat. Unable to estimate RV systolic pressure/pulmonary artery pressure due to techni haylie difficult study. Diastolic function is indeterminate. Ordering Physician: Anjelica Moore Referring Physician: Anjelica Moore Performed By: Magno Nash RCS
== END ==
PROVIDERS: PCP Nurse Practitioner; Referring Provider Nurse Practitioner; Visit Provider Nurse Practitioner
DX: R07.9 Chest pain, unspecified (principal)
CPT/HCPCS: 93225; 93226; 93306

== ENCOUNTER 2021-01-27 15:37 | Emergency (ER) | payer OTHER, SELFPAY ==
[2021-01-27 15:37] VITALS: BP 152/84; PULSE 94; RESP 16; TEMP 36.6; O2SAT 94; BMI 31.1
[2021-01-27 16:05] VITALS: BP 152/84; PULSE 94; RESP 16; TEMP 36.6; O2SAT 94
[2021-01-27] MEDS: 0.9% Normal Saline 1,000 ML 999 ML IV (16:22)
[2021-01-27] MEDS: MethylPREDNISolone 125 MG/2 ML Vial IV (16:22)
--- NOTE | 2021-01-27 16:24 | RAD_ITS ---
INDICATION: cough EXAMINATION/TECHNIQUE: X-RAY - XR Chest 1 View COMPARISON: 05/07/2020. FINDINGS: The lungs are clear. Tortuous and calcified thoracic aorta. The heart is not enlarged. Persistent elevation of the right hemidiaphragm. No pleural effusion or pneumothorax. No acute osseous abnormalities. RAD/Chest 1 View (Portable) IMPRESSION: No acute radiographic abnormalities. Electronically Signed: David Deluna MD at 17:02 EDT Tel , Service support ,
[2021-01-27 16:28] LABS: Absolute Lymphocyte Count 2.17 X10^3/uL (0.83-4.51); Absolute Neutrophil Count 5.1 X10^3/uL (2.0-7.7); Basophil# 0.05 X10^3/uL; Basophil% 0.6 % (0-1); Eosinophil# 0.19 X10^3/uL; Eosinophils% 2.3 % (0-5); Hematocrit 47.5 % (37-47); Hemoglobin 15.5 g/dL (12.0-15.0); Lymphocyte # 2.17 X10^3/ul (0.83-4.51); Lymphocyte % 26.2 % (19-41); Mean Corp Hgb Conc 32.6 g/dL (32-36); Mean Corpuscular Hgb 31.6 pg (27.0-32.0); Mean Corpuscular Volume 96.9 fL (81-99); Mean Platelet Vol. 10.1 fl (6.2-12.0); Monocyte# 0.72 X10^3/uL; Monocyte% 8.7 % (0-10); NRBC Flagged by Analyzer 0 % (0-5); Neutrophil # 5.12 X10^3/uL (2.7-7.7); Platelet Count 208 K/mm3 (150-450); RBC Distribution Width CV 12.9 % (11.6-14.6); RBC Distribution Width SD 46.2 fl (35.1-43.9); White Blood Count 8.3 K/mm3 (4.4-11.0)
[2021-01-27 16:37] LABS: Anion Gap 6 (5-15); BUN 18 mg/dL (7-18); BUN/Creat Ratio 22.3 RATIO (10-20); Calcium,Total 9.1 mg/dL (8.5-10.1); Chloride 103 mmol/L (98-107); Creatinine, Serum 0.81 mg/dL (0.55-1.02); EST Glomerular Filtration Rate 75 mL/min (>60); Est Glom Filt Rate - Afr Amer 91 mL/min (>60); Estimated Creatinine Clearance 52.57 ml/min; Glucose 90 mg/dL (74-106); Magnesium 2.3 mg/dL (1.6-2.6); Potassium 3.9 mmol/L (3.5-5.1); Sodium Level 140 mmol/L (136-145)
[2021-01-27 16:48] LABS: Bacteria 0 SEEN /hpf (None Seen); Mucous, Urine 0 SEEN /hpf (<or=2+); Red Blood Cells-Urine 0 SEEN /hpf (0-5); Squamous Epithelial Cells - UA 0 SEEN /hpf (5-10)
[2021-01-27 16:50] LABS: Color, Urine Yellow (Yellow); Glucose, Dipstick Normal (Normal); Ketone-Dipstick Negative (Negative); Leukocyte Esterase-Dipstick 100 /ul (Negative); Nitrite-Dipstick Negative (Negative); Occult Blood-Urine Negative /ul (Negative); Protein-Dipstick Negative (Negative); Urine Bilirubin Dipstick Negative (Negative); Urine Clarity Clear (Clear); Urine Urobilinogen Normal (Normal)
[2021-01-27 17:00] VITALS: BP 152/84; PULSE 94; RESP 16; TEMP 36.6; O2SAT 94
[2021-01-27 17:03] LABS: White Blood Cells 10-25 SEEN /hpf (0-5)
--- NOTE | 2021-01-27 18:05 | EX.ED.DYSGE1 ---
HPI History of Present Illness Chief Complaint: General Illness Narrative Narrative: Patient is a 70-year-old female who states for the past 5 to 7 days she has had congestion and cough. She states she has a history of asthma and has been taking her home nebulizer treatments with minimal. She states her grandson who lives with her was recently diagnosed with RSV. She also reports that she has had generalized fatigue and weakness and is noticed increased urinary frequency and dysuria. She states that she is not vaccinated against Covid but had it back in February and she has no known sick contacts other than her grandson. However with her worsening symptoms she is concerned she has developed a UTI or pneumonia and comes in for evaluation [facility] Medical History (Updated 01/27/21 @ 18:[address] Junior Richter, DO) Chest pain Chronic pain Chronic pain Fatigue Fibromyalgia GERD (gastroesophageal reflux disease) Head ache Hiatal hernia Hypertension Hypothyroidism Hypothyroidism Mitral valve prolapse Osteopenia Osteoporosis Palpitations Psoriatic arthritis Psoriatic arthritis SOB (shortness of breath) Type 2 diabetes mellitus Home Medications cholecalciferol (vitamin D3) 50 mcg (2,000 unit) capsule 2,000 unit PO QDAY cap 05/30/17 [History Last Taken Unknown] cyclobenzaprine 10 mg tablet 10 mg PO HS tab 05/30/17 [History Last Taken 02/28/18] trazodone 300 mg tablet 300 mg PO QHS tab 05/30/17 [History Last Taken 02/28/18] clonazepam 1.5 mg PO QHS 03/01/18 [History Last Taken 02/28/18] epinephrine 0.3 mg IM PRN PRN 03/01/18 [History Last Taken Unknown] metoprolol succinate [Toprol XL] 25 mg PO QHS 03/01/18 [History Last Taken 03/01/18] vitamin B complex [B Complex-Vitamin B12] 1 tab PO DAILY 03/01/18 [History Last Taken 03/01/18] levothyroxine 75 mcg PO DAILY 11/16/18 [History Last Taken Unknown] methylprednisolone [Medrol (Alfredo)] See Rx Instructions .ROUTE .COMPLEX #21 tab 01/27/21 [Rx Last Taken Unknown] nitrofurantoin monohyd/m-cryst [Macrobid] 100 mg PO BID #14 cap 01/27/21 [Rx Last Taken Unknown] Allergy/AdvReac Type Severity Reaction Status Date / Time amoxicillin trihydrate Allergy Shortness Verified 01/27/21 15:37 [From Augmentin] of breath aspirin Allergy Anaphylaxis Verified 01/27/21 15:37 atropine sulfate Allergy Itching Verified 01/27/21 15:37 [From Lomotil] cefixime [From Suprax] Allergy Itching Verified 01/27/21 15:37 ceftriaxone sodium Allergy Itching Verified 01/27/21 15:37 [From Rocephin] cephalexin monohydrate Allergy Itching Verified 01/27/21 15:37 [From Keflex] ciprofloxacin [From Cipro] Allergy Shortness Verified 01/27/21 15:37 of breath ciprofloxacin HCl Allergy Shortness Verified 01/27/21 15:37 [From Cipro] of breath clindamycin Allergy Itching Verified 01/27/21 15:37 diphenoxylate HCl Allergy Itching Verified 01/27/21 15:37 [From Lomotil] gentamicin [Gentamicin] Allergy Itching Verified 01/27/21 15:37 hydromorphone HCl Allergy Itching Verified 01/27/21 15:37 [From Exalgo ER] metoclopramide HCl Allergy Anaphylaxis Verified 01/27/21 15:37 [From Reglan] Penicillins [PCN] Allergy Itching Verified 01/27/21 15:37 phenazopyridine HCl Allergy Itching Verified 01/27/21 15:37 [From Pyridium] potassium clavulanate Allergy Shortness Verified 01/27/21 15:37 [From Augmentin] of breath povidone-iodine Allergy Itching Verified 01/27/21 15:37 [From Betadine] propoxyphene HCl Allergy Itching Verified 01/27/21 15:37 [From Darvon] red dye Allergy Itching Verified 01/27/21 15:37 soap [From Betadine] Allergy Itching Verified 01/27/21 15:37 Sulfa (Sulfonamide Allergy Itching Verified 01/27/21 15:37 Antibiotics) adhesive tape AdvReac Severe skin peels Verified 01/27/21 15:37 clarithromycin [From Biaxin] AdvReac Severe Vomiting Verified 01/27/21 15:37 ketorolac tromethamine AdvReac Severe Vomiting Verified 01/27/21 15:37 [From Toradol] verapamil [Verapamil] AdvReac Severe Other Verified 01/27/21 15:37 azithromycin AdvReac Intermediate vomiting Verified 01/27/21 15:37 iodine AdvReac Unknown Unknown Verified 01/27/21 15:37 levofloxacin [From Levaquin] AdvReac Unknown Unknown Verified 01/27/21 15:37 phenazopyridine AdvReac Unknown Unknown Verified 01/27/21 15:37 [From Pyridium] carbamazepine [From Tegretol] AdvReac Unknown Verified 01/27/21 15:37 duloxetine HCl AdvReac Unknown Verified 01/27/21 15:37 [From Cymbalta] gabapentin [From Neurontin] AdvReac Other Verified 01/27/21 15:37 guaifenesin [From Entex T] AdvReac Vomiting Verified 01/27/21 15:37 midazolam HCl [From Versed] AdvReac Other Verified 01/27/21 15:37 morphine AdvReac Other Verified 01/27/21 15:37 phenobarbital AdvReac Other Verified 01/27/21 15:37 pseudoephedrine HCl AdvReac Vomiting Verified 01/27/21 15:37 [From Entex T] quetiapine fumarate AdvReac Other Verified 01/27/21 15:37 [From Seroquel] C-CLOR Allergy Shortness Uncoded 01/27/21 15:37 of breath CAT SCAN DYE Allergy Rash Uncoded 01/27/21 15:37 CIPRO Allergy Itching Uncoded 01/27/21 15:37 STERIODS Allergy Other Uncoded 01/27/21 15:37 TAPE AdvReac Other Uncoded 01/27/21 15:37 XOPONEX AdvReac Other Uncoded 01/27/21 15:37 Family History Father CAD (coronary artery disease) Mother CVA (cerebral vascular accident) Grandfather Heart disease Grandmother Heart disease Uncle Sudden cardiac , Onset Age: 30 Surgical History (Updated 03/01/18 @ 16:[address] Carmen Mahmood MD) History of cholecystectomy History of total hysterectomy Hx of appendectomy Social History (Updated 05/31/17 @ 16:[address] Yaniv Liang MD) Smoking Status: Former smoker alcohol intake: never substance use type: does not use ROS ROS ED Constitutional Constitutional ED: Denies chills or fever(s) Eyes Eyes: Denies change in vision ENT ENT ED: Reports rhinorrhea and sore throat Cardiovascular Cardiovascular: Denies chest pain Respiratory/Chest Respiratory/Chest: Reports cough, dyspnea and other Details: Positive wheeze Gastrointestinal Gastrointestinal: Reports nausea; Denies abdominal pain, diarrhea or vomiting Genitourinary Genitourinary ED: Reports dysuria and urinary frequency Musculoskeletal Musculoskeletal: Reports myalgias Integumentary Denies rash Neurologic Neurologic: Denies headache(s) Hematologic/Lymphatic Hematologic/Lymphatic: Denies easy bleeding or easy bruising EXAM Physical Exam Const Vital Signs: 01/27/21 15:37 01/27/21 16:05 01/27/21 16:06 Temperature 98 F 98 F Temperature Source Temporal Temporal Pulse Rate 94 94 Respiratory Rate 16 16 Respiratory Pattern Normal Blood Pressure 152/84 H 152/84 H Blood Pressure Mean 106 106 Pulse Ox 94 94 Oxygen Delivery Method Room Air Room Air 01/27/21 17:00 Temperature 98 F Temperature Source Temporal Pulse Rate 94 Respiratory Rate 16 Respiratory Pattern Blood Pressure 152/84 H Blood Pressure Mean 106 Pulse Ox 94 Oxygen Delivery Method Room Air Positive well nourished and well developed General Appearance ED: well developed HEENT Reports moist mucous membranes HEENT Narrative: Cobblestoning the posterior pharynx consistent with sinus drainage but no airway edema or compromise Eyes PERRL and EOMs intact bilaterally Neck supple and no JVD Neck Narrative: Positive anterior cervical lymphadenopathy Chest Wall palpation of chest normal Resp Resp Narrative: Breath sounds are diminished throughout with faint expiratory wheeze but no signs of respiratory distress Cardio regular rate and regular rhythm GI normal to inspection, nondistended, normoactive bowel sounds, non-tender and non-distended Auscultation: normoactive bowel sounds Palpation: soft Back/Spine no CVA tenderness Extremity normal to inspection Extremity Narrative: No asymmetric edema no pitting edema negative Homans' sign bilaterally Neuro oriented x3 and CN's II-XII intact bilaterally Sensorium / Orientation: alert Motor Exam: strength 5/5 throughout Psych mental status grossly normal Skin no rashes or lesions noted MDM MDM MDM Narrative Medical decision making narrative: Patient presented to the ER with stable vitals and no signs of respiratory distress. Her constellation of symptoms is most consistent with a viral illness especially with her known sick contact of her grandson at home. Basic labs were obtained which revealed no clinically significant findings other than the multiple white blood cells in the patient's urine concerning for UTI. However she does not have changes to suggest acute kidney injury or urosepsis. X-ray also shows no signs of pneumonia and Covid test is negative. Therefore at this time as patient remains in no acute respiratory distress does not need supplemental oxygen and does not have changes to suggest acute kidney injury or septicemia she is safe for discharge Lab Data Attestation: I reviewed the patient's lab results. Labs: Laboratory Results - last 24 hr 01/27/21 01/27/21 01/27/21 15:50 15:50 16:41 WBC 8.3 RBC 4.90 Hgb 15.5 H Hct 47.5 H MCV 96.9 MCH 31.6 MCHC 32.6 RDW Std Deviation 46.2 H RDW Coeff of Doreen 12.9 Plt Count 208 MPV 10.1 Immature Gran % (Auto) 0.200 Neut % (Auto) 62.0 Lymph % (Auto) 26.2 [place] % (Auto) 8.7 Eos % (Auto) 2.3 Baso % (Auto) 0.6 Absolute Neuts (auto) 5.1 Absolute Lymphs (auto) 2.17 Nucleated RBC % 0 Sodium 140 Potassium 3.9 Chloride 103 Carbon Dioxide 31.0 Anion Gap 6 BUN 18 Creatinine 0.81 Estim Creat Clear Calc 52.57 Est GFR (MDRD) Af Amer 91 Est GFR (MDRD) Non-Af 75 BUN/Creatinine Ratio 22.3 H Glucose 90 Calcium 9.1 Magnesium 2.3 Urine Color Yellow Urine Clarity Clear Urine pH 6.0 Ur Specific [place] 1.010 Urine Protein Negative Urine Glucose (UA) Normal Urine Ketones Negative Urine Occult Blood Negative Urine Nitrite Negative Urine Bilirubin Negative Urine Urobilinogen Normal Ur Leukocyte Esterase 100 H Urine RBC 0 SEEN Urine WBC 10-25 SEEN Ur Squamous Epith Cells 0 SEEN Urine Bacteria 0 SEEN Urine Mucus 0 SEEN Radiography Diagnostic Testing: Clinical Impression(s) from Imaging Studies Chest X-Ray 01/27/21 16:24 IMPRESSION: No acute radiographic abnormalities. Electronically Signed: David Deluna MD at 17:02 EDT Tel , Service support , Discharge Plan Triage Chief Complaint: General Illness ED Provider: Junior Richter Dx/Rx/DC Orders Clinical Impression: Urinary tract infection, Viral respiratory illness Instructions: Urinary Tract Infections in Women, ED URI, Viral W/ Wheezing (Adult) Prescriptions: New nitrofurantoin monohyd/m-cryst [Macrobid] 100 mg capsule 100 mg PO BID Qty: 14 RF: 0 methylprednisolone [Medrol (Alfredo)] 4 mg tablets,dose pack See Rx Instructions .ROUTE .COMPLEX Qty: 21 RF: 0 No Action cholecalciferol (vitamin D3) 2,000 unit capsule 2,000 unit PO QDAY RF: 0 cyclobenzaprine 10 mg tablet 10 mg PO HS RF: 0 trazodone 300 MG tablet 300 mg PO QHS RF: 0 metoprolol succinate [Toprol XL] 50 MG tablet extended release 24 hr 25 mg PO QHS RF: 0 clonazepam 1 MG tablet 1.5 mg PO QHS RF: 0 epinephrine 0.3 MG syringe 0.3 mg IM PRN PRN (Reason: anaphlaxis) RF: 0 vitamin B complex [B Complex-Vitamin B12] 1 EACH tablet 1 tab PO DAILY RF: 0 levothyroxine 75 MCG tablet 75 mcg PO DAILY RF: 0 Primary Care Provider: Anjelica Moore NP Referrals: Anjelica Moore NP, [employer] [Primary Care Provider] - Disposition Disposition: Home, Self Care
[2021-01-27] MEDS: Nitrofurantoin Macrocrystals 100 MG Capsule PO (18:26)
[2021-01-27 18:27] VITALS: BP 139/76; PULSE 81; RESP 16; O2SAT 99
== END 2021-01-27 18:28 | disposition home or self-care (01) ==
PROVIDERS: Emergency Provider Emergency Medicine; PCP Nurse Practitioner
DX: N39.0 Urinary tract infection, site not specified (principal); R09.81 Nasal congestion; R05.9 Cough, unspecified; R53.1 Weakness; R53.83 Other fatigue; M79.7 Fibromyalgia; I10 Essential (primary) hypertension; E03.9 Hypothyroidism, unspecified; E11.9 Type 2 diabetes mellitus without complications; G89.29 Other chronic pain; I34.1 Nonrheumatic mitral (valve) prolapse; M81.0 Age-related osteoporosis without current pathological fracture; J45.909 Unspecified asthma, uncomplicated; K21.9 Gastro-esophageal reflux disease without esophagitis; L40.50 Arthropathic psoriasis, unspecified; M85.80 Other specified disorders of bone density and structure, unspecified site; Z79.899 Other long term (current) drug therapy; Z87.891 Personal history of nicotine dependence
CPT/HCPCS: 71045; 80048; 81001; 83735; 85025; 87426; 96361; 96374; 99284; J7030; A4216

== ENCOUNTER 2021-01-30 20:44 | Emergency (ER) | payer OTHER, SELFPAY ==
[2021-01-30 20:46] VITALS: BP 131/97; PULSE 89; RESP 15; TEMP 36.8; O2SAT 94; BMI 30.8
[2021-01-30 21:30] VITALS: BP 138/64; PULSE 81; RESP 14; O2SAT 93
[2021-01-30] MEDS: 0.9% Normal Saline 1,000 ML 1000 ML IV (22:10)
[2021-01-30 22:13] LABS: Absolute Lymphocyte Count 1.25 X10^3/uL (0.83-4.51); Absolute Neutrophil Count 6.5 X10^3/uL (2.0-7.7); Basophil# 0.01 X10^3/uL; Basophil% 0.1 % (0-1); Eosinophil# 0.01 X10^3/uL; Eosinophils% 0.1 % (0-5); Hematocrit 44.5 % (37-47); Hemoglobin 15.4 g/dL (12.0-15.0); Lymphocyte # 1.25 X10^3/ul (0.83-4.51); Lymphocyte % 14.7 % (19-41); Mean Corp Hgb Conc 34.6 g/dL (32-36); Mean Corpuscular Hgb 32.4 pg (27.0-32.0); Mean Corpuscular Volume 93.7 fL (81-99); Mean Platelet Vol. 9.3 fl (6.2-12.0); Monocyte# 0.67 X10^3/uL; Monocyte% 7.9 % (0-10); NRBC Flagged by Analyzer 0 % (0-5); Neutrophil # 6.52 X10^3/uL (2.7-7.7); Neutrophil % 76.6 % (47-70); Platelet Count 199 K/mm3 (150-450); RBC Distribution Width CV 12.8 % (11.6-14.6); RBC Distribution Width SD 44.1 fl (35.1-43.9); Red Blood Count 4.75 M/mm3 (4.2-5.4); White Blood Count 8.5 K/mm3 (4.4-11.0)
[2021-01-30 22:18] LABS: Bacteria 0 SEEN /hpf (None Seen); Mucous, Urine 0 SEEN /hpf (<or=2+); Red Blood Cells-Urine 0 SEEN /hpf (0-5); White Blood Cells 0 SEEN /hpf (0-5)
[2021-01-30 22:20] LABS: Color, Urine Yellow (Yellow); Glucose, Dipstick Normal (Normal); Ketone-Dipstick Negative (Negative); Leukocyte Esterase-Dipstick Negative /ul (Negative); Nitrite-Dipstick Negative (Negative); Occult Blood-Urine Negative /ul (Negative); Protein-Dipstick Negative (Negative); Urine Bilirubin Dipstick Negative (Negative); Urine Clarity Clear (Clear); Urine Urobilinogen Normal (Normal)
[2021-01-30 22:35] LABS: Squamous Epithelial Cells - UA 0-5 SEEN /hpf (5-10)
[2021-01-30 22:39] LABS: Anion Gap 8 (5-15); BUN 16 mg/dL (7-18); BUN/Creat Ratio 21.7 RATIO (10-20); Calcium,Total 8.7 mg/dL (8.5-10.1); Chloride 106 mmol/L (98-107); Creatinine, Serum 0.74 mg/dL (0.55-1.02); EST Glomerular Filtration Rate 83 mL/min (>60); Est Glom Filt Rate - Afr Amer 101 mL/min (>60); Glucose 155 mg/dL (74-106); Potassium 3.5 mmol/L (3.5-5.1); Sodium Level 140 mmol/L (136-145); Thyroid Stim Hormone (TSH) 4.65 uIU/mL (0.358-3.74)
[2021-01-30 23:31] VITALS: BP 133/68; PULSE 70; RESP 16; TEMP 36.6; O2SAT 94
--- NOTE | 2021-01-30 23:49 | EX.ED.DYSGE1 ---
HPI History of Present Illness Chief Complaint: Shortness of Breath Detail of Chief Complaint: Viral upper respiratory infection, generalized weakness, poor p.o. intake Informant: patient and spouse/S.O. Onset/Context/Timing Onset: Days Context: Sudden Onset Timing: Continuous Quality: Viral upper respiratory, negative Covid Location: Respiratory Worsened by: Mild dyspnea with exertion Relieved by: [place] better after steroids started. Feels washed out now Associated Symptoms Associated Symptoms: Generalized weakness and malaise Narrative Narrative: Patient is a 62-year-old woman with recent visit and diagnosis of viral upper restaurant infection and urinary tract infection. She was placed on Macrobid. He does have history of type 2 diabetes, psoriatic arthritis, GERD, and fibromyalgia. She presents because of feeling washed out. She states her thyroid dose has not been changed recently. She states her last thyroid test was normal. She denies headache. She denies visual symptoms. She denies auditory symptoms. She does report GI symptoms. She denies dysuria or urgency but does report frequency. She has not noted blood in her urine. She is on day 3 of Macrobid. Prior similar symptoms: Yes Recent Illness/Hospitalization: Yes [facility] Medical History (Updated 01/30/21 @ 23:[address] Sascha Addison MD) Chest pain Chronic pain Chronic pain Fatigue Fibromyalgia GERD (gastroesophageal reflux disease) Head ache Hiatal hernia Hypertension Hypothyroidism Hypothyroidism Mitral valve prolapse Osteopenia Osteoporosis Palpitations Psoriatic arthritis Psoriatic arthritis SOB (shortness of breath) Type 2 diabetes mellitus Home Medications cholecalciferol (vitamin D3) 50 mcg (2,000 unit) capsule 2,000 unit PO QDAY cap 05/30/17 [History Last Taken Unknown] cyclobenzaprine 10 mg tablet 10 mg PO HS tab 05/30/17 [History Last Taken 02/28/18] trazodone 300 mg tablet 300 mg PO QHS tab 05/30/17 [History Last Taken 02/28/18] clonazepam 1.5 mg PO QHS 03/01/18 [History Last Taken 02/28/18] epinephrine 0.3 mg IM PRN PRN 03/01/18 [History Last Taken Unknown] metoprolol succinate [Toprol XL] 25 mg PO QHS 03/01/18 [History Last Taken 03/01/18] vitamin B complex [B Complex-Vitamin B12] 1 tab PO DAILY 03/01/18 [History Last Taken 03/01/18] levothyroxine 75 mcg PO DAILY 11/16/18 [History Last Taken Unknown] methylprednisolone [Medrol (Alfredo)] See Rx Instructions .ROUTE .COMPLEX #21 tab 01/27/21 [Rx Last Taken Unknown] nitrofurantoin monohyd/m-cryst [Macrobid] 100 mg PO BID #14 cap 01/27/21 [Rx Last Taken Unknown] Allergy/AdvReac Type Severity Reaction Status Date / Time amoxicillin trihydrate Allergy Shortness Verified 01/30/21 20:47 [From Augmentin] of breath aspirin Allergy Anaphylaxis Verified 01/30/21 20:47 atropine sulfate Allergy Itching Verified 01/30/21 20:47 [From Lomotil] cefixime [From Suprax] Allergy Itching Verified 01/30/21 20:47 ceftriaxone sodium Allergy Itching Verified 01/30/21 20:47 [From Rocephin] cephalexin monohydrate Allergy Itching Verified 01/30/21 20:47 [From Keflex] ciprofloxacin [From Cipro] Allergy Shortness Verified 01/30/21 20:47 of breath ciprofloxacin HCl Allergy Shortness Verified 01/30/21 20:47 [From Cipro] of breath clindamycin Allergy Itching Verified 01/30/21 20:47 diphenoxylate HCl Allergy Itching Verified 01/30/21 20:47 [From Lomotil] gentamicin [Gentamicin] Allergy Itching Verified 01/30/21 20:47 hydromorphone HCl Allergy Itching Verified 01/30/21 20:47 [From Exalgo ER] metoclopramide HCl Allergy Anaphylaxis Verified 01/30/21 20:47 [From Reglan] Penicillins [PCN] Allergy Itching Verified 01/30/21 20:47 phenazopyridine HCl Allergy Itching Verified 01/30/21 20:47 [From Pyridium] potassium clavulanate Allergy Shortness Verified 01/30/21 20:47 [From Augmentin] of breath povidone-iodine Allergy Itching Verified 01/30/21 20:47 [From Betadine] propoxyphene HCl Allergy Itching Verified 01/30/21 20:47 [From Darvon] red dye Allergy Itching Verified 01/30/21 20:47 soap [From Betadine] Allergy Itching Verified 01/30/21 20:47 Sulfa (Sulfonamide Allergy Itching Verified 01/30/21 20:47 Antibiotics) adhesive tape AdvReac Severe skin peels Verified 01/30/21 20:47 clarithromycin [From Biaxin] AdvReac Severe Vomiting Verified 01/30/21 20:47 ketorolac tromethamine AdvReac Severe Vomiting Verified 01/30/21 20:47 [From Toradol] verapamil [Verapamil] AdvReac Severe Other Verified 01/30/21 20:47 azithromycin AdvReac Intermediate vomiting Verified 01/30/21 20:47 iodine AdvReac Unknown Unknown Verified 01/30/21 20:47 levofloxacin [From Levaquin] AdvReac Unknown Unknown Verified 01/30/21 20:47 phenazopyridine AdvReac Unknown Unknown Verified 01/30/21 20:47 [From Pyridium] carbamazepine [From Tegretol] AdvReac Unknown Verified 01/30/21 20:47 duloxetine HCl AdvReac Unknown Verified 01/30/21 20:47 [From Cymbalta] gabapentin [From Neurontin] AdvReac Other Verified 01/30/21 20:47 guaifenesin [From Entex T] AdvReac Vomiting Verified 01/30/21 20:47 midazolam HCl [From Versed] AdvReac Other Verified 01/30/21 20:47 morphine AdvReac Other Verified 01/30/21 20:47 phenobarbital AdvReac Other Verified 01/30/21 20:47 pseudoephedrine HCl AdvReac Vomiting Verified 01/30/21 20:47 [From Entex T] quetiapine fumarate AdvReac Other Verified 01/30/21 20:47 [From Seroquel] C-CLOR Allergy Shortness Uncoded 01/30/21 20:47 of breath CAT SCAN DYE Allergy Rash Uncoded 01/30/21 20:47 CIPRO Allergy Itching Uncoded 01/30/21 20:47 STERIODS Allergy Other Uncoded 01/30/21 20:47 TAPE AdvReac Other Uncoded 01/30/21 20:47 XOPONEX AdvReac Other Uncoded 01/30/21 20:47 Family History Father CAD (coronary artery disease) Mother CVA (cerebral vascular accident) Grandfather Heart disease Grandmother Heart disease Uncle Sudden cardiac , Onset Age: 30 Surgical History History of cholecystectomy History of total hysterectomy Hx of appendectomy Social History (Updated 01/30/21 @ 23:[address] Sascha Addison MD) household members: spouse Smoking Status: Former smoker alcohol intake: never substance use type: does not use ROS ROS ED Constitutional Constitutional ED: Reports chills; Denies fever(s), subjective or sweats Eyes Eyes: Denies blurry vision, change in vision or diplopia ENT ENT ED: Reports rhinorrhea; Denies ear pain or sore throat Cardiovascular Cardiovascular: Denies chest pain, orthopnea, palpitations, paroxysmal nocturnal dyspnea or racing heartbeat Respiratory/Chest Respiratory/Chest: Reports cough, dyspnea and dyspnea on exertion; Denies orthopnea, paroxysmal nocturnal dyspnea or sputum Gastrointestinal Gastrointestinal: Reports diarrhea and nausea; Denies abdominal pain, constipation or vomiting Genitourinary Genitourinary ED: Reports urinary frequency; Denies dysuria or hematuria Musculoskeletal Musculoskeletal: Denies arthralgias, myalgias or neck pain Integumentary Denies abscess or rash Neurologic Neurologic: Reports weakness; Denies headache(s) Endocrine Endocrinology: Denies polydipsia, polyphagia or polyuria Allergic/Immunologic Allergic/Immunologic ED: Denies mouth swelling or urticaria EXAM Physical Exam Const Vital Signs: 01/30/21 20:46 01/30/21 21:30 01/30/21 23:31 Temperature 98.3 F 97.8 F Temperature Source Temporal Oral Pulse Rate 89 81 70 Respiratory Rate 15 14 16 Blood Pressure 131/97 H 138/64 H 133/68 H Blood Pressure Mean 108 88 89 Pulse Ox 94 93 94 Oxygen Delivery Method Room Air Room Air Room Air Positive well nourished, well developed and obese General Appearance ED: well developed, NAD and other Patient does not appear well. She does not appear toxic Nutritional Appearance: obese HEENT HEENT Narrative: Head is AT normocephalic. Ears normal. Nares patent. Mucosa is dry. Uvula is midline. There is no erythema or exudate. Eyes PERRL and EOMs intact bilaterally General Eye ED: Negative for pale conjunctiva or scleral icterus Neck no lymphadenopathy, supple and no JVD Chest Wall inspection of chest normal and palpation of chest normal Resp normal respiratory effort and clear to auscultation bilaterally Cardio regular rate, regular rhythm, S1 normal heart sound, S2 normal heart sound and no murmurs GI normal to inspection, nondistended, normoactive bowel sounds Back/Spine no CVA tenderness Cervical Spine: Negative for cervical spine tenderness Thoracic Spine / Upper Back: Negative for thoracic spinal tenderness or paraspinal muscle tenderness Extremity normal to inspection General Extremety ED: Negative for tenderness Neuro oriented x3, CN's II-XII intact bilaterally and no sensory deficits noted Sensorium / Orientation: alert Motor Exam: strength 5/5 throughout Psych mental status grossly normal Skin no rashes or lesions noted and no wounds MDM MDM MDM Narrative Medical decision making narrative: Most recent TSH was elevated at our facility. Level was greater than 12. With poor p.o. intake frequent urination prior history of diabetes concerned she may have hyperglycemia since she is on prednisone for her upper respiratory infection with wheezing. CBC was obtained to assess white count and rule out anemia. Electrolyte panel was obtained to assess CO2 and rule out renal dysfunction. Patient was reassessed at 2350. She feels markedly better after fluid bolus. Plan is to discharge to home. She was made aware of her laboratory results. Lab Data Attestation: I reviewed the patient's lab results. Lab results narrative: TSH is slightly above normal however it is improved from prior. UA is negative and there is no evidence of infection at this time. White count and H&H are normal. Labs: Laboratory Results - last 24 hr 01/30/21 01/30/21 01/30/21 22:00 22:00 22:10 WBC 8.5 RBC 4.75 Hgb 15.4 H Hct 44.5 MCV 93.7 MCH 32.4 H MCHC 34.6 D RDW Std Deviation 44.1 H RDW Coeff of Doreen 12.8 Plt Count 199 MPV 9.3 Immature Gran % (Auto) 0.600 Neut % (Auto) 76.6 H Lymph % (Auto) 14.7 L [place] % (Auto) 7.9 Eos % (Auto) 0.1 Baso % (Auto) 0.1 Absolute Neuts (auto) 6.5 Absolute Lymphs (auto) 1.25 Nucleated RBC % 0 Sodium 140 Potassium 3.5 Chloride 106 Carbon Dioxide 26.0 Anion Gap 8 BUN 16 Creatinine 0.74 Estim Creat Clear Calc 46.50 Est GFR (MDRD) Af Amer 101 Est GFR (MDRD) Non-Af 83 BUN/Creatinine Ratio 21.7 H Glucose 155 H Calcium 8.7 TSH 4.65 H Urine Color Yellow Urine Clarity Clear Urine pH 7.0 Ur Specific Drake 1.010 Urine Protein Negative Urine Glucose (UA) Normal Urine Ketones Negative Urine Occult Blood Negative Urine Nitrite Negative Urine Bilirubin Negative Urine Urobilinogen Normal Ur Leukocyte Esterase Negative Urine RBC 0 SEEN Urine WBC 0 SEEN Ur Squamous Epith Cells 0-5 SEEN Urine Bacteria 0 SEEN Urine Mucus 0 SEEN Discharge Plan Triage Chief Complaint: Shortness of Breath ED Provider: Sascha Addison Dx/Rx/DC Orders Clinical Impression: Systemic viral illness, Hypothyroidism, Mild dehydration, Acute hyperglycemia Instructions: ED Hypothyroidism, ED Viral Syndrome (Adult) Prescriptions: No Action cholecalciferol (vitamin D3) 2,000 unit capsule 2,000 unit PO QDAY RF: 0 cyclobenzaprine 10 mg tablet 10 mg PO HS RF: 0 trazodone 300 MG tablet 300 mg PO QHS RF: 0 metoprolol succinate [Toprol XL] 50 MG tablet extended release 24 hr 25 mg PO QHS RF: 0 clonazepam 1 MG tablet 1.5 mg PO QHS RF: 0 epinephrine 0.3 MG syringe 0.3 mg IM PRN PRN (Reason: anaphlaxis) RF: 0 vitamin B complex [B Complex-Vitamin B12] 1 EACH tablet 1 tab PO DAILY RF: 0 levothyroxine 75 MCG tablet 75 mcg PO DAILY RF: 0 nitrofurantoin monohyd/m-cryst [Macrobid] 100 mg capsule 100 mg PO BID Qty: 14 RF: 0 methylprednisolone [Medrol (Alfredo)] 4 mg tablets,dose pack See Rx Instructions .ROUTE .COMPLEX Qty: 21 RF: 0 Primary Care Provider: Anjelica Moore NP Referrals: Anjelica Moore LAN/WAN ENGINEER, LAN/WAN ENGINEER-C [Primary Care Provider] - 5-7 Days Activity Restrictions/Additional Instructions: 1. Your blood sugar is elevated 155. This is probably due to the steroids you are presently taking 2. You should have your TSH checked in a week or 2 once your illness improves 3. There is evidence of mild dehydration you need to increase her p.o. intake. Disposition Disposition: Home, Self Care
[2021-01-31 00:10] VITALS: BP 133/64; PULSE 70; RESP 16; O2SAT 95
== END 2021-01-31 00:11 | disposition home or self-care (01) ==
PROVIDERS: Emergency Provider Emergency Medicine; PCP Nurse Practitioner
DX: J06.9 Acute upper respiratory infection, unspecified (principal); E86.0 Dehydration; E03.9 Hypothyroidism, unspecified; E11.65 Type 2 diabetes mellitus with hyperglycemia; N39.0 Urinary tract infection, site not specified; G89.29 Other chronic pain; I10 Essential (primary) hypertension; I34.1 Nonrheumatic mitral (valve) prolapse; M79.7 Fibromyalgia; K21.9 Gastro-esophageal reflux disease without esophagitis; M81.0 Age-related osteoporosis without current pathological fracture; L40.50 Arthropathic psoriasis, unspecified; Z79.899 Other long term (current) drug therapy; Z87.891 Personal history of nicotine dependence
CPT/HCPCS: 80048; 81001; 84443; 85025; 99285

== ENCOUNTER → 2021-03-31 | Outpatient (CLI) | payer OTHER, SELFPAY ==
[2021-03-31 12:35] LABS: Bacteria 0 SEEN /hpf (None Seen); Mucous, Urine 0 SEEN /hpf (<or=2+); Red Blood Cells-Urine 0 SEEN /hpf (0-5); Squamous Epithelial Cells - UA 0 SEEN /hpf (5-10); White Blood Cells 0 SEEN /hpf (0-5)
[2021-03-31 13:08] LABS: Color, Urine Yellow (Yellow); Glucose, Dipstick Normal (Normal); Ketone-Dipstick Negative (Negative); Leukocyte Esterase-Dipstick 25 /ul (Negative); Nitrite-Dipstick Negative (Negative); Occult Blood-Urine Negative /ul (Negative); Protein-Dipstick 15 mg/dl (Negative); Urine Bilirubin Dipstick Negative (Negative); Urine Clarity Sl. Cloudy (Clear); Urine Urobilinogen Normal (Normal)
== END | disposition home or self-care (01) ==
LOC: LABSPEC 11:04
PROVIDERS: PCP Nurse Practitioner; Referring Provider Physician Assistant; Visit Provider Physician Assistant
DX: R30.0 Dysuria (principal)
CPT/HCPCS: 81001; 87086; 87088

== ENCOUNTER → 2021-10-14 | Outpatient (CLI) | payer OTHER, SELFPAY ==
--- NOTE | 2021-10-14 09:40 | RAD_ITS ---
INDICATION: DYSPHAGIA -- 12 MM TABLET EXAMINATION/TECHNIQUE: Barium oral contrast , barium pill, and gas bubbles were administered to the patient. Total Fluoroscopic Time: 36 seconds AND number of Fluoroscopic Images: 15 COMPARISON: Chest radiograph from 01/27/2021. CT abdomen pelvis with contrast from 07/09/2020. FINDINGS: There are cholecystectomy clips within the right upper quadrant on initial gizzard puller images. No masses or strictures are identified. Small hiatal hernia and mild reflux. The mucosal pattern is unremarkable. There is normal motility. RAD/Esophagus Dual Contrast IMPRESSION: Small hiatal hernia and mild reflux. Electronically Signed: Guillermo Tapia, at 10:45 EDT ,
== END | disposition home or self-care (01) ==
LOC: RAD 09:37
PROVIDERS: PCP Nurse Practitioner; Referring Provider Internal Medicine Gastroenterology; Visit Provider Internal Medicine Gastroenterology
DX: R13.10 Dysphagia, unspecified (principal)
CPT/HCPCS: 74221

== ENCOUNTER → 2021-11-01 | Outpatient (CLI) | payer OTHER, SELFPAY ==
[2021-11-01 17:57] LABS: Absolute Lymphocyte Count 3.36 X10^3/uL (0.83-4.51); Absolute Neutrophil Count 3.7 X10^3/uL (2.0-7.7); Basophil# 0.05 X10^3/uL; Basophil% 0.6 % (0-1); Eosinophil# 0.32 X10^3/uL; Eosinophils% 3.9 % (0-5); Hematocrit 46.9 % (37-47); Hemoglobin 16.2 g/dL (12.0-15.0); Lymphocyte # 3.36 X10^3/ul (0.83-4.51); Lymphocyte % 41.4 % (19-41); Mean Corp Hgb Conc 34.5 g/dL (32-36); Mean Corpuscular Hgb 31.6 pg (27.0-32.0); Mean Corpuscular Volume 91.4 fL (81-99); Mean Platelet Vol. 9.5 fl (6.2-12.0); Monocyte# 0.67 X10^3/uL; Monocyte% 8.3 % (0-10); NRBC Flagged by Analyzer 0 % (0-5); Neutrophil # 3.69 X10^3/uL (2.7-7.7); Neutrophil % 45.6 % (47-70); Platelet Count 235 K/mm3 (150-450); RBC Distribution Width CV 12.4 % (11.6-14.6); RBC Distribution Width SD 41.8 fl (35.1-43.9); Red Blood Count 5.13 M/mm3 (4.2-5.4); White Blood Count 8.1 K/mm3 (4.4-11.0)
== END | disposition home or self-care (01) ==
LOC: MTLAB 16:32
PROVIDERS: PCP Nurse Practitioner; Referring Provider Nurse Practitioner Family; Visit Provider Nurse Practitioner Family
DX: R06.02 Shortness of breath (principal)
CPT/HCPCS: 36415; 85025

== ENCOUNTER → 2022-02-07 | Outpatient (CLI) | payer OTHER, SELFPAY ==
--- NOTE | 2022-02-07 10:45 | US_ITS ---
STUDY: ABDOMINAL ULTRASOUND REASON FOR EXAM: Female, 71 years old. Fever of unknown origin TECHNIQUE: Transabdominal ultrasound was performed with real-time and static dudley scale imaging. TECHNICAL QUALITY: Adequate. COMPARISON: None. FINDINGS: Spleen: Normal size of the spleen. The spleen measures 9.5 cm. Left Kidney: Normal size of the left kidney. The left kidney measures 8.6 cm. Normal renal cortex. The left cortex measures 1.1 cm. There is no demonstrated renal mass or cyst. There is no left hydronephrosis. US/Abdomen Limited IMPRESSION: Normal left upper quadrant abdominal ultrasound examination. Electronically Signed: Alberto Mercedes MD at 17:35 EDT ,
== END | disposition home or self-care (01) ==
PROVIDERS: PCP Nurse Practitioner; Referring Provider Nurse Practitioner Family; Visit Provider Nurse Practitioner Family
DX: R50.9 Fever, unspecified (principal)
CPT/HCPCS: 76705

== ENCOUNTER → 2022-03-03 | Outpatient (CLI) | payer OTHER, SELFPAY ==
--- NOTE | 2022-03-03 14:46 | BI_ITS ---
MAMMOGRAPHY - BILATERAL SCREENING REASON FOR EXAM: Female, 71 years old. Routine annual screening examination. PERTINENT HISTORY: Aunt with breast cancer. Remote left breast biopsy. History of prior bilateral breast implants and removal. TECHNIQUE: Digital bilateral breast tina (3D mammographic acquisition) in the CC and MLO projections. 2-D mediolateral oblique (MLO) and craniocaudad (CC) views of both breasts were obtained. CAD: Full Field Digital Mammography with Computer Added Detection was performed. COMPARISON: Comparison is made with prior study dated 09/14/2020 and 08/23/2018. FINDINGS: Breast Composition: There are scattered areas of fibroglandular density. There are no dominant masses or suspicious calcifications. Stable benign-appearing bilateral axillary lymph nodes. The previously seen 4 mm nodule in the inferior inner quadrant of the right breast has almost completely resolved. No other significant abnormalities are identified. There has been no significant change since the prior study. BI/SCRN MAMM (CAD)W/TINA BILAT IMPRESSION: Stable bilateral screening mammogram. Yearly follow-up mammogram recommended. (A) ASSESSMENT CATEGORY: BIRADS Category 2: Benign. A letter regarding these results will be sent to the patient by the facility within 30 days. Approximately 10% of breast cancers are not detected by mammography. A normal mammogram should not delay biopsy of a clinically suspicious abnormality. [id number] Electronically Signed: Xu Davila MD at 8:29 EST ,
== END | disposition home or self-care (01) ==
LOC: OPBI 14:45
PROVIDERS: PCP Nurse Practitioner; Referring Provider Nurse Practitioner Family; Visit Provider Nurse Practitioner Family
DX: Z12.31 Encounter for screening mammogram for malignant neoplasm of breast (principal)
CPT/HCPCS: 77063; 77067

== ENCOUNTER 2022-03-21 11:46 | Outpatient (CLI) | payer OTHER, SELFPAY ==
--- NOTE | 2022-03-21 11:51 | EKG12_ITS ---
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 Rate : 077 BPM Atrial Rate : 077 BPM P-R Int : 150 ms QRS Dur : 072 ms QT Int : 388 ms P-R-T Axes : 015 044 016 degrees QTc Int : 439 ms Normal sinus rhythm Nonspecific T wave abnormality Abnormal ECG Confirmed by JAVIER GARZA, CONCHITA ([id number]), news copy editor RATNA SOSA ([id number]) on 03/22/2022 8:07:01 AM Referred By: TODD FARR Confirmed By:CONCHITA HERRERA MD
== END 2022-03-21 23:59 | disposition home or self-care (01) ==
LOC: PSN 11:49
PROVIDERS: PCP Nurse Practitioner Family
DX: Z79.899 Other long term (current) drug therapy (principal)
CPT/HCPCS: 93005

== ENCOUNTER → 2022-08-02 | Outpatient (CLI) | payer OTHER, SELFPAY ==
[2022-08-02 17:35] LABS: T4 Free Direct 1.23 ng/dL (0.76-1.46); Thyroid Stim Hormone (TSH) 1.27 uIU/mL (0.358-3.74)
== END | disposition home or self-care (01) ==
LOC: LAB 15:55
PROVIDERS: PCP Nurse Practitioner Family; Referring Provider Nurse Practitioner Family; Visit Provider Nurse Practitioner Family
DX: E03.9 Hypothyroidism, unspecified (principal)
CPT/HCPCS: 36415; 84439; 84443

== ENCOUNTER → 2022-09-29 | Outpatient (CLI) | payer OTHER, SELFPAY ==
[2022-09-29 11:05] LABS: Anion Gap 8 (5-15); BUN 10 mg/dL (7-18); BUN/Creat Ratio 11.6 RATIO (10-20); Calcium,Total 8.9 mg/dL (8.5-10.1); Chloride 108 mmol/L (98-107); Creatinine, Serum 0.86 mg/dL (0.55-1.02); EST Glomerular Filtration Rate 70 mL/min (>60); Est Glom Filt Rate - Afr Amer 84 mL/min (>60); Glucose 131 mg/dL (74-106); Potassium 3.9 mmol/L (3.5-5.1); Sodium Level 142 mmol/L (136-145)
== END | disposition home or self-care (01) ==
LOC: LAB 10:13
PROVIDERS: PCP Nurse Practitioner Family
DX: Z79.899 Other long term (current) drug therapy (principal)
CPT/HCPCS: 36415; 80048; 80178

== ENCOUNTER 2022-10-20 12:01 | Emergency (ER) | payer OTHER, SELFPAY ==
[2022-10-20 12:08] VITALS: BP 149/77; PULSE 83; RESP 22; TEMP 35.8; O2SAT 93; BMI 33.0
--- NOTE | 2022-10-20 12:19 | CT_ITS ---
STUDY: CT ABDOMEN AND PELVIS WITH CONTRAST REASON FOR EXAM: Female, 71 years old. Abdominal pain RADIATION DOSAGE (If Supplied By Facility): CTDIvol = ( 15.78 ) mGy, DLP = ( 935.33 ) mGycm TECHNIQUE: Transaxial images were obtained from the dome of the diaphragm to the symphysis pubis without oral contrast. IV 100mL Isovue-300 was administered. Sagittal and coronal images were reconstructed. Individualized dose optimization techniques were used for this CT. COMPARISON: Comparison is made with prior study dated July 09, 2020. FINDINGS: Increased linear markings at the right lung base suggestive of atelectasis. Mild degree of coronary artery calcification. There is decreased attenuation of the liver consistent with steatosis. There are surgical clips in the gallbladder fossa consistent with a prior cholecystectomy. Normal spleen. Normal pancreas. Normal bilateral adrenal glands. Normal right kidney. Normal left kidney. There is a small hiatal hernia. Normal small intestine. There are scattered colonic diverticula consistent with diverticulosis. The appendix is visualized and appears normal. There is scattered atherosclerotic calcification of the abdominal aorta, without a demonstrated aneurysm. Normal inferior vena cava. Normal retroperitoneum. Normal urinary bladder. There is absence of the uterus consistent with a prior hysterectomy. Normal abdominal wall. There are mild degenerative changes of the visualized lumbar spine. CT/Abdomen/Pelvis W IV Cont ONLY IMPRESSION: Fatty infiltration of the liver. Status post cholecystectomy. Scattered sigmoid diverticula. Increased markings at the right lung base suggestive of linear atelectasis. Electronically Signed: Xu Davila MD at 14:11 EDT ,
[2022-10-20] MEDS: DiphenhydrAMINE 50 MG/ML Syringe 25 MG IV (12:34)
[2022-10-20] MEDS: MethylPREDNISolone 125 MG/2 ML Vial IV (12:34)
[2022-10-20] MEDS: 0.9% Normal Saline 1,000 ML 1000 ML IV (12:34)
[2022-10-20 12:35] LABS: Absolute Lymphocyte Count 2.64 X10^3/uL (0.83-4.51); Absolute Neutrophil Count 4.5 X10^3/uL (2.0-7.7); Basophil# 0.07 X10^3/uL; Basophil% 0.8 % (0-1); Eosinophil# 0.44 X10^3/uL; Eosinophils% 5.3 % (0-5); Hematocrit 47.5 % (37-47); Hemoglobin 15.9 g/dL (12.0-15.0); Lymphocyte # 2.64 X10^3/ul (0.83-4.51); Lymphocyte % 31.7 % (19-41); Mean Corp Hgb Conc 33.5 g/dL (32-36); Mean Corpuscular Hgb 32.1 pg (27.0-32.0); Mean Platelet Vol. 9.8 fl (6.2-12.0); Monocyte# 0.69 X10^3/uL; Monocyte% 8.3 % (0-10); NRBC Flagged by Analyzer 0 % (0-5); Neutrophil # 4.48 X10^3/uL (2.7-7.7); Neutrophil % 53.7 % (47-70); Platelet Count 235 K/mm3 (150-450); RBC Distribution Width CV 12.5 % (11.6-14.6); RBC Distribution Width SD 43.8 fl (35.1-43.9); Red Blood Count 4.95 M/mm3 (4.2-5.4); White Blood Count 8.3 K/mm3 (4.4-11.0)
[2022-10-20] MEDS: Ondansetron 4 MG/2 ML Vial IV (12:35)
[2022-10-20 12:52] LABS: ALB/GLOB Ratio 0.9 RATIO (0.9-2.4); AST(SGOT) 27 U/L (15-37); Alanine Aminotransfer ALT/SGPT 28 U/L (13-56); Albumin, Serum 3.6 g/dL (3.2-5.0); Alkaline Phosphatase 84 U/L (45-117); Anion Gap 4 (5-15); BUN 10 mg/dL (7-18); BUN/Creat Ratio 10.9 RATIO (10-20); Calcium,Total 9.6 mg/dL (8.5-10.1); Chloride 108 mmol/L (98-107); Creatinine, Serum 0.92 mg/dL (0.55-1.02); EST Glomerular Filtration Rate 65 mL/min (>60); Est Glom Filt Rate - Afr Amer 78 mL/min (>60); Estimated Creatinine Clearance 45.65 ml/min; Globulin 3.8 g/dL (2.2-4.2); Glucose 126 mg/dL (74-106); Lipase 31 U/L (13-75); Potassium 4.5 mmol/L (3.5-5.1); Protein, Total 7.4 g/dL (6.4-8.2); Sodium Level 138 mmol/L (136-145)
--- NOTE | 2022-10-20 12:57 | EDS_ITS ---
HPI <Dr. Ford Mccollum MD - Last Filed: 10/20/22 12:59> HPI - GI History of Present Illness Chief Complaint: Weakness <BATSHEVA Silva - Last Filed: 10/20/22 14:47> HPI - GI Narrative Narrative: Patient is a 71-year-old female with history of essential tremor, hypertension, thyroidism who presents to the emergency department for 2 weeks of generalized nausea, vomiting, abdominal pain. Patient notices at nighttime that her upper abdominal area gets bloated. [facility], she had abdominal pain so they referred here here for abdominal work-up. Patient denies any fevers or chills. Patient Nuys any blood in her stool or vomit. REPLACED BY [facility] <Dr. Ford Mccollum MD - Last Filed: 10/20/22 12:59> REPLACED BY [facility] Medical History (Updated 10/20/22 @ 14:45 by BATSHEVA Silva) Burning with urination Chest pain Chronic pain Fatigue Fibromyalgia GERD (gastroesophageal reflux disease) Head ache Hiatal hernia Hypertension Hypothyroidism Mitral valve prolapse Osteopenia Osteoporosis Palpitations Psoriatic arthritis SOB (shortness of breath) Type 2 diabetes mellitus Home Medications cholecalciferol (vitamin D3) 50 mcg (2,000 unit) capsule 2,000 unit PO QDAY 05/30/17 [History Last Taken Unknown] cyclobenzaprine 10 mg tablet 10 mg PO HS 05/30/17 [History Last Taken 02/28/18] trazodone 300 mg tablet 300 mg PO QHS 05/30/17 [History Last Taken 02/28/18] clonazepam 1 mg tablet 1.5 mg PO QHS 03/01/18 [History Last Taken 02/28/18] epinephrine 0.3 mg/0.3 mL injection, auto-injector 0.3 mg IM PRN PRN anaphlaxis 03/01/18 [History Last Taken Unknown] metoprolol succinate 50 mg tablet,extended release 24 hr (Toprol XL) 25 mg PO QHS 03/01/18 [History Last Taken 03/01/18] vitamin B complex (B Complex-Vitamin B12 tablet) 1 tab PO DAILY supplement 03/01/18 [History Last Taken 03/01/18] levothyroxine 75 mcg tablet 75 mcg PO DAILY 11/16/18 [History Last Taken Unknown] ondansetron 4 mg disintegrating tablet 4 mg PO Q8H PRN PRN Nausea #10 tabs 10/20/22 [Rx Last Taken Unknown] Allergy/AdvReac Type Severity Reaction Status Date / Time amoxicillin trihydrate Allergy Shortness Verified 10/20/22 11:23 [From Augmentin] of breath aspirin Allergy Anaphylaxis Verified 10/20/22 11:23 atropine sulfate Allergy Itching Verified 10/20/22 11:23 [From Lomotil] cefixime [From Suprax] Allergy Itching Verified 10/20/22 11:23 ceftriaxone sodium Allergy Itching Verified 10/20/22 11:23 [From Rocephin] cephalexin monohydrate Allergy Itching Verified 10/20/22 11:23 [From Keflex] ciprofloxacin [From Cipro] Allergy Shortness Verified 10/20/22 11:23 of breath ciprofloxacin HCl Allergy Shortness Verified 10/20/22 11:23 [From Cipro] of breath clindamycin Allergy Itching Verified 10/20/22 11:23 Corticosteroids Allergy PT UNABLE Verified 10/20/22 11:23 (Glucocorticoids) TO RESPOND-NEEDS F/U diphenoxylate HCl Allergy Itching Verified 10/20/22 11:23 [From Lomotil] gentamicin [Gentamicin] Allergy Itching Verified 10/20/22 11:23 hydromorphone HCl Allergy Itching Verified 10/20/22 11:23 [From Exalgo ER] Iodinated Contrast Media Allergy Rash Verified 10/20/22 11:23 metoclopramide HCl Allergy Anaphylaxis Verified 10/20/22 11:23 [From Reglan] Penicillins [PCN] Allergy Itching Verified 10/20/22 11:23 phenazopyridine HCl Allergy Itching Verified 10/20/22 11:23 [From Pyridium] potassium clavulanate Allergy Shortness Verified 10/20/22 11:23 [From Augmentin] of breath povidone-iodine Allergy Itching Verified 10/20/22 11:23 [From Betadine] propoxyphene HCl Allergy Itching Verified 10/20/22 11:23 [From Darvon] red dye Allergy Itching Verified 10/20/22 11:23 soap [From Betadine] Allergy Itching Verified 10/20/22 11:23 Sulfa (Sulfonamide Allergy Itching Verified 10/20/22 11:23 Antibiotics) adhesive tape AdvReac Severe skin peels Verified 10/20/22 11:23 clarithromycin [From Biaxin] AdvReac Severe Vomiting Verified 10/20/22 11:23 ketorolac tromethamine AdvReac Severe Vomiting Verified 10/20/22 11:23 [From Toradol] verapamil [Verapamil] AdvReac Severe Other Verified 10/20/22 11:23 azithromycin AdvReac Intermediate vomiting Verified 10/20/22 11:23 iodine AdvReac Unknown Unknown Verified 10/20/22 11:23 levofloxacin [From Levaquin] AdvReac Unknown Unknown Verified 10/20/22 11:23 phenazopyridine AdvReac Unknown Unknown Verified 10/20/22 11:23 [From Pyridium] carbamazepine [From Tegretol] AdvReac Unknown Verified 10/20/22 11:23 duloxetine HCl AdvReac Unknown Verified 10/20/22 11:23 [From Cymbalta] gabapentin [From Neurontin] AdvReac Other Verified 10/20/22 11:23 guaifenesin [From Entex T] AdvReac Vomiting Verified 10/20/22 11:23 levalbuterol [From Xopenex] AdvReac DYSTONIA Verified 10/20/22 11:23 midazolam HCl [From Versed] AdvReac Other Verified 10/20/22 11:23 morphine AdvReac Other Verified 10/20/22 11:23 phenobarbital AdvReac Other Verified 10/20/22 11:23 pseudoephedrine HCl AdvReac Vomiting Verified 10/20/22 11:23 [From Entex T] quetiapine fumarate AdvReac Other Verified 10/20/22 11:23 [From Seroquel] C-CLOR Allergy Shortness Uncoded 10/20/22 11:23 of breath Family History Father CAD (coronary artery disease) Mother CVA (cerebral vascular accident) Grandfather Heart disease Grandmother Heart disease Uncle Sudden cardiac , Onset Age: 30 Surgical History History of cholecystectomy History of total hysterectomy Hx of appendectomy Social History household members: spouse Smoking Status: Former smoker alcohol intake: never substance use type: does not use ROS <BATSHEVA Silva - Last Filed: 10/20/22 14:47> ROS ED ROS Narrative Constitutional: Negative for fever, chills, weight loss, weakness Eyes: Negative for vision loss, vision change, double vision ENT: Negative for any sore throat, ear pain, congestion Cardiovascular: Negative for any chest pain, tightness, palpitations Respiratory: Negative for any cough, sputum production, hemoptysis, dyspnea, dyspnea on exertion, orthopnea Gastrointestinal: Negative for any constipation, blood in stool, blood in vomit. Positive for abdominal pain, nausea, diarrhea, Diarrhea. : Negative for any urinary frequency, dysuria, retention, blood in urine Muscle skeletal: Negative for any muscle joint pain, stiffness, myalgias, arthralgias, neck pain, back pain Neurological: Negative for any headache, syncope, numbness or tingling, dizziness Skin: Negative for any rashes, lumps, itching, abrasions, lacerations Psychiatric: Negative for any depression, anxiety, stress, suicidal ideation, homicidal ideation Hematologic: Negative for any easy bruising, excessive bruising, easy bleeding Allergies: Negative for any eczema, hives, rash EXAM <Dr. Ford Mccollum MD - Last Filed: 10/20/22 12:59> Physical Exam Const Vital Signs: 10/20/22 12:08 10/20/22 12:10 Temperature 96.5 F L Temperature Source Temporal Pulse Rate 83 Respiratory Rate 22 H Respiratory Pattern Normal Blood Pressure 149/77 H Blood Pressure Mean 101 Pulse Ox 93 Oxygen Delivery Method Room Air <BATSHEVA Silva - Last Filed: 10/20/22 14:47> Physical Exam Narrative Exam Narrative: Vital signs reviewed. HEET: Head normocephalic atraumatic, TMs clear bilaterally. Posterior pharynx is clear, moist mucous membranes. Nares clear bilaterally. Neck: Supple with no lymphadenopathy or tenderness. No signs of meningismus, negative jolt sign. Cardiac: Regular rate and rhythm no murmurs gallops or rubs, equal peripheral pulses bilaterally. Respiratory: Lungs clear to auscultation bilaterally. No chest tenderness. Abdomen: Soft, nondistended. No abdominal bruit or pulsatile masses. No hepatosplenomegaly. During my examination, patient had pain on proportion throughout different areas of her abdomen such as the right upper quadrant, left lower quadrant, right lower quadrant Extremities: No peripheral edema, no signs of gross trauma or deformity. Active full range of motion of all extremities. Neuro: Cranial nerves II through XII intact, no focal neurological deficits. Skin: Clean dry and intact with no rash, purpura, petechiae, vesicles or pustules. Backs/flank: No CVA tenderness, no midline spinal tenderness, no deformity. Psych: Normal mood and affect. No SI, HI or acute psychosis. Const Vital Signs: 10/20/22 12:08 10/20/22 12:10 Temperature 96.5 F L Temperature Source Temporal Pulse Rate 83 Respiratory Rate 22 H Respiratory Pattern Normal Blood Pressure 149/77 H Blood Pressure Mean 101 Pulse Ox 93 Oxygen Delivery Method Room Air Positive well nourished and well developed General Appearance ED: well developed MDM <Dr. Ford Mccollum MD - Last Filed: 10/20/22 12:59> MDM MDM Narrative Medical decision making narrative: I have personally performed a face to face assessment of the patient and have reviewed the ROBERTO Note. I performed a substantive portion of the visit including all aspects of the following. My rosas findings include: History is [71-year-old female complaining of intermittent nausea, vomiting diarrhea last 2 weeks. She had a prior cholecystectomy and appendectomy. Evaluate this patient with our DESIZING MACHINE OPERATOR.] Exam is [female no acute distress. Vital signs stable afebrile. H EENT exam unremarkable. Lungs clear. Heart regular rhythm. Abdomen soft. Diffusely tender primarily in the left upper and right upper quadrants. No peritoneal signs. No hernia or mass. No obstruction. No pulsatile mass. Moving all 4 extremities. Nontender no edema. Back nontender.] Medical Decision Making [71-year-old female with abdominal pain with nausea, vomiting and diarrhea intermittently for 2 weeks. Exam benign. Labs unremarkable. Awaiting CAT scan results.] Other additions or changes: [None] Lab Data Attestation: I reviewed the patient's lab results. Lab results narrative: CBC unremarkable. White count 8. Normal H&H. Electrolytes unremarkable gap of 4. Normal BUN and creatinine. Liver enzymes unremarkable. Glucose 126. Lipase normal at 31. Labs: Laboratory Results - last 24 hr 10/20/22 12:20 WBC 8.3 RBC 4.95 Hgb 15.9 H Hct 47.5 H MCV 96.0 MCH 32.1 H MCHC 33.5 RDW Std Deviation 43.8 RDW Coeff of Doreen 12.5 Plt Count 235 MPV 9.8 Immature Gran % (Auto) 0.200 Neut % (Auto) 53.7 Lymph % (Auto) 31.7 Ralls % (Auto) 8.3 Eos % (Auto) 5.3 H Baso % (Auto) 0.8 Absolute Neuts (auto) 4.5 Absolute Lymphs (auto) 2.64 Nucleated RBC % 0 Sodium 138 Potassium 4.5 Chloride 108 H Carbon Dioxide 26.0 Anion Gap 4 L BUN 10 Creatinine 0.92 Estim Creat Clear Calc 45.65 Est GFR (MDRD) Af Amer 78 Est GFR (MDRD) Non-Af 65 BUN/Creatinine Ratio 10.9 Glucose 126 H Calcium 9.6 Total Bilirubin 0.60 AST 27 ALT 28 Alkaline Phosphatase 84 Total Protein 7.4 Albumin 3.6 Globulin 3.8 Albumin/Globulin Ratio 0.9 Lipase 31 Radiography Diagnostic Testing: Clinical Impression(s) from Imaging Studies Abdomen/Pelvis CT 10/20/22 12:19 IMPRESSION: Fatty infiltration of the liver. Status post cholecystectomy. Scattered sigmoid diverticula. Increased markings at the right lung base suggestive of linear atelectasis. Electronically Signed: Xu Davila MD at 14:11 EDT , <BATSHEVA Silva - Last Filed: 10/20/22 14:47> [facility] Lab Data Labs: Laboratory Results - last 24 hr 10/20/22 12:20 WBC 8.3 RBC 4.95 Hgb 15.9 H Hct 47.5 H MCV 96.0 MCH 32.1 H MCHC 33.5 RDW Std Deviation 43.8 RDW Coeff of Doreen 12.5 Plt Count 235 MPV 9.8 Immature Gran % (Auto) 0.200 Neut % (Auto) 53.7 Lymph % (Auto) 31.7 Ralls % (Auto) 8.3 Eos % (Auto) 5.3 H Baso % (Auto) 0.8 Absolute Neuts (auto) 4.5 Absolute Lymphs (auto) 2.64 Nucleated RBC % 0 Sodium 138 Potassium 4.5 Chloride 108 H Carbon Dioxide 26.0 Anion Gap 4 L BUN 10 Creatinine 0.92 Estim Creat Clear Calc 45.65 Est GFR (MDRD) Af Amer 78 Est GFR (MDRD) Non-Af 65 BUN/Creatinine Ratio 10.9 Glucose 126 H Calcium 9.6 Total Bilirubin 0.60 AST 27 ALT 28 Alkaline Phosphatase 84 Total Protein 7.4 Albumin 3.6 Globulin 3.8 Albumin/Globulin Ratio 0.9 Lipase 31 Radiography Diagnostic Testing: Clinical Impression(s) from Imaging Studies Abdomen/Pelvis CT 10/20/22 12:19 IMPRESSION: Fatty infiltration of the liver. Status post cholecystectomy. Scattered sigmoid diverticula. Increased markings at the right lung base suggestive of linear atelectasis. Electronically Signed: Xu Davila MD at 14:11 EDT , Treatment and Re-Evaluation :: All radiologic examinations were read, reviewed by the emergency department attending. From these reads, a plan of care will be put in place. Patient appears generally well, patient appears nontoxic, vital signs are stable. Patient appears well, patient appears nontoxic, vital signs are stable. Patient laboratory values showed a normal CBC, chemistries were unremarkable. Liver panels were unremarkable. Patient did have to receive premedication for CT dye allergy. She will receive a CT scan of the abdomen pelvis concerning for any bowel obstruction, diverticulitis, gastritis. Patient laboratory values were grossly unremarkable. Patient on reevaluation appears stable. Patient received a CT scan of the abdomen pelvis, this showed fatty infiltration of liver, status postcholecystectomy. Scattered sigmoid diverticula. Increased markings in the right lung base suggestive of linear anaphylaxis. No other pathology. At this time on reevaluation, patient appears well. Patient will be able to be discharged home, she will be placed on Zofran for home. She will continue following up with her PCP regarding the symptoms. At this time, there is no acute pathology, patient is happy with the plan of care, she was given strict return precaution. No antibiotics will be given for this concern for an ear infection secondary to my examination. Patient stable for discharge. Discharge Plan Triage Chief Complaint: Weakness Other Complaint: Fever Lower Extremity Injury Nausea/Vomiting/Diarrhea ED Midlevel Provider: Yaniv Hill ED Provider: Ford Mccollum Dx/Rx/DC Orders Clinical Impression: Abdominal distension, Nausea & vomiting Instructions: ED Vomiting (Adult) Prescriptions: New ondansetron 4 mg tablet,disintegrating 4 mg PO Q8H PRN PRN (Reason: Nausea) Qty: 10 0RF No Action cholecalciferol (vitamin D3) 2,000 unit capsule 2,000 unit PO QDAY cyclobenzaprine 10 mg tablet 10 mg PO HS trazodone 300 MG tablet 300 mg PO QHS Patient Comments: SLEEP DISORDER- INSOMNIA metoprolol succinate [Toprol XL] 50 MG tablet extended release 24 hr 25 mg PO QHS clonazepam 1 MG tablet 1.5 mg PO QHS Patient Comments: TAKE 2 TABLETS AT BEDTIME epinephrine 0.3 MG syringe 0.3 mg IM PRN PRN (Reason: anaphlaxis) vitamin B complex [B Complex-Vitamin B12] 1 EACH tablet 1 tab PO DAILY levothyroxine 75 MCG tablet 75 mcg PO DAILY Primary Care Provider: Mikayla Arita Referrals: Mikayla Arita, DESIZING MACHINE OPERATOR-C [Primary Care Provider] - Activity Restrictions/Additional Instructions: Please follow-up with your PCP. Disposition Disposition: Home, Self Care
--- NOTE | 2022-10-20 13:07 | EDS_ITS ---
HPI History of Present Illness Chief Complaint: Weakness Narrative Narrative: Patient 71-year-old female history of hypertension, essential tremor, hypothyroidism who presents to the emergency department with 2 weeks of intermittent weakness, nausea, vomiting, diarrhea. Patient also states at nighttime she feels that her upper abdomen is distended. Patient denies any blood in stool or vomit. Patient [place]ys any chest pain. Denies any recent travel. [facility], they state that she might have an ear infection and referred her to the ER for abdominal pain. [facility] Medical History Burning with urination Chest pain Chronic pain Fatigue Fibromyalgia GERD (gastroesophageal reflux disease) Head ache Hiatal hernia Hypertension Hypothyroidism Mitral valve prolapse Osteopenia Osteoporosis Palpitations Psoriatic arthritis SOB (shortness of breath) Type 2 diabetes mellitus Home Medications cholecalciferol (vitamin D3) 50 mcg (2,000 unit) capsule 2,000 unit PO QDAY 05/30/17 [History Last Taken Unknown] cyclobenzaprine 10 mg tablet 10 mg PO HS 05/30/17 [History Last Taken 02/28/18] trazodone 300 mg tablet 300 mg PO QHS 05/30/17 [History Last Taken 02/28/18] clonazepam 1 mg tablet 1.5 mg PO QHS 03/01/18 [History Last Taken 02/28/18] epinephrine 0.3 mg/0.3 mL injection, auto-injector 0.3 mg IM PRN PRN anaphlaxis 03/01/18 [History Last Taken Unknown] metoprolol succinate 50 mg tablet,extended release 24 hr (Toprol XL) 25 mg PO QHS 03/01/18 [History Last Taken 03/01/18] vitamin B complex (B Complex-Vitamin B12 tablet) 1 tab PO DAILY supplement 03/01/18 [History Last Taken 03/01/18] levothyroxine 75 mcg tablet 75 mcg PO DAILY 11/16/18 [History Last Taken Unknown] Allergy/AdvReac Type Severity Reaction Status Date / Time amoxicillin trihydrate Allergy Shortness Verified 10/20/22 11:23 [From Augmentin] of breath aspirin Allergy Anaphylaxis Verified 10/20/22 11:23 atropine sulfate Allergy Itching Verified 10/20/22 11:23 [From Lomotil] cefixime [From Suprax] Allergy Itching Verified 10/20/22 11:23 ceftriaxone sodium Allergy Itching Verified 10/20/22 11:23 [From Rocephin] cephalexin monohydrate Allergy Itching Verified 10/20/22 11:23 [From Keflex] ciprofloxacin [From Cipro] Allergy Shortness Verified 10/20/22 11:23 of breath ciprofloxacin HCl Allergy Shortness Verified 10/20/22 11:23 [From Cipro] of breath clindamycin Allergy Itching Verified 10/20/22 11:23 Corticosteroids Allergy PT UNABLE Verified 10/20/22 11:23 (Glucocorticoids) TO RESPOND-NEEDS F/U diphenoxylate HCl Allergy Itching Verified 10/20/22 11:23 [From Lomotil] gentamicin [Gentamicin] Allergy Itching Verified 10/20/22 11:23 hydromorphone HCl Allergy Itching Verified 10/20/22 11:23 [From Exalgo ER] Iodinated Contrast Media Allergy Rash Verified 10/20/22 11:23 metoclopramide HCl Allergy Anaphylaxis Verified 10/20/22 11:23 [From Reglan] Penicillins [PCN] Allergy Itching Verified 10/20/22 11:23 phenazopyridine HCl Allergy Itching Verified 10/20/22 11:23 [From Pyridium] potassium clavulanate Allergy Shortness Verified 10/20/22 11:23 [From Augmentin] of breath povidone-iodine Allergy Itching Verified 10/20/22 11:23 [From Betadine] propoxyphene HCl Allergy Itching Verified 10/20/22 11:23 [From Darvon] red dye Allergy Itching Verified 10/20/22 11:23 soap [From Betadine] Allergy Itching Verified 10/20/22 11:23 Sulfa (Sulfonamide Allergy Itching Verified 10/20/22 11:23 Antibiotics) adhesive tape AdvReac Severe skin peels Verified 10/20/22 11:23 clarithromycin [From Biaxin] AdvReac Severe Vomiting Verified 10/20/22 11:23 ketorolac tromethamine AdvReac Severe Vomiting Verified 10/20/22 11:23 [From Toradol] verapamil [Verapamil] AdvReac Severe Other Verified 10/20/22 11:23 azithromycin AdvReac Intermediate vomiting Verified 10/20/22 11:23 iodine AdvReac Unknown Unknown Verified 10/20/22 11:23 levofloxacin [From Levaquin] AdvReac Unknown Unknown Verified 10/20/22 11:23 phenazopyridine AdvReac Unknown Unknown Verified 10/20/22 11:23 [From Pyridium] carbamazepine [From Tegretol] AdvReac Unknown Verified 10/20/22 11:23 duloxetine HCl AdvReac Unknown Verified 10/20/22 11:23 [From Cymbalta] gabapentin [From Neurontin] AdvReac Other Verified 10/20/22 11:23 guaifenesin [From Entex T] AdvReac Vomiting Verified 10/20/22 11:23 levalbuterol [From Xopenex] AdvReac DYSTONIA Verified 10/20/22 11:23 midazolam HCl [From Versed] AdvReac Other Verified 10/20/22 11:23 morphine AdvReac Other Verified 10/20/22 11:23 phenobarbital AdvReac Other Verified 10/20/22 11:23 pseudoephedrine HCl AdvReac Vomiting Verified 10/20/22 11:23 [From Entex T] quetiapine fumarate AdvReac Other Verified 10/20/22 11:23 [From Seroquel] C-CLOR Allergy Shortness Uncoded 10/20/22 11:23 of breath Family History Father CAD (coronary artery disease) Mother CVA (cerebral vascular accident) Grandfather Heart disease Grandmother Heart disease Uncle Sudden cardiac , Onset Age: 30 Surgical History History of cholecystectomy History of total hysterectomy Hx of appendectomy Social History household members: spouse Smoking Status: Former smoker alcohol intake: never substance use type: does not use ROS ROS ED ROS Narrative Constitutional: Negative for fever, chills, weight loss, weakness Eyes: Negative for vision loss, vision change, double vision ENT: Negative for any sore throat, ear pain, congestion Cardiovascular: Negative for any chest pain, tightness, palpitations Respiratory: Negative for any cough, sputum production, hemoptysis, dyspnea, dyspnea on exertion, orthopnea Gastrointestinal: Negative for any constipation, blood in stool, blood in vomit. Positive for abdominal pain, nausea and vomiting : Negative for any urinary frequency, dysuria, retention, blood in urine Muscle skeletal: Negative for any muscle joint pain, stiffness, myalgias, arthralgias, neck pain, back pain Neurological: Negative for any headache, syncope, numbness or tingling, dizziness Skin: Negative for any rashes, lumps, itching, abrasions, lacerations Psychiatric: Negative for any depression, anxiety, stress, suicidal ideation, homicidal ideation Hematologic: Negative for any easy bruising, excessive bruising, easy bleeding Allergies: Negative for any eczema, hives, rash EXAM Physical Exam Narrative Exam Narrative: Vital signs reviewed. HEET: Head normocephalic atraumatic, TMs clear bilaterally. Posterior pharynx is clear, moist mucous membranes. Nares clear bilaterally. Neck: Supple with no lymphadenopathy or tenderness. No signs of meningismus, negative jolt sign. Cardiac: Regular rate and rhythm no murmurs gallops or rubs, equal peripheral pulses bilaterally. Respiratory: Lungs clear to auscultation bilaterally. No chest tenderness. Abdomen: Soft, nontender, nondistended. No abdominal bruit or pulsatile masses. No hepatosplenomegaly Extremities: No peripheral edema, no signs of gross trauma or deformity. Active full range of motion of all extremities. Neuro: Cranial nerves II through XII intact, no focal neurological deficits. Skin: Clean dry and intact with no rash, purpura, petechiae, vesicles or pustules. Backs/flank: No CVA tenderness, no midline spinal tenderness, no deformity. Psych: Normal mood and affect. No SI, HI or acute psychosis. Const Vital Signs: 10/20/22 12:08 10/20/22 12:10 Temperature 96.5 F L Temperature Source Temporal Pulse Rate 83 Respiratory Rate 22 H Respiratory Pattern Normal Blood Pressure 149/77 H Blood Pressure Mean 101 Pulse Ox 93 Oxygen Delivery Method Room Air [facility] Lab Data Labs: Laboratory Results - last 24 hr 10/20/22 12:20 WBC 8.3 RBC 4.95 Hgb 15.9 H Hct 47.5 H MCV 96.0 MCH 32.1 H MCHC 33.5 RDW Std Deviation 43.8 RDW Coeff of Doreen 12.5 Plt Count 235 MPV 9.8 Immature Gran % (Auto) 0.200 Neut % (Auto) 53.7 Lymph % (Auto) 31.7 [place] % (Auto) 8.3 Eos % (Auto) 5.3 H Baso % (Auto) 0.8 Absolute Neuts (auto) 4.5 Absolute Lymphs (auto) 2.64 Nucleated RBC % 0 Sodium 138 Potassium 4.5 Chloride 108 H Carbon Dioxide 26.0 Anion Gap 4 L BUN 10 Creatinine 0.92 Estim Creat Clear Calc 45.65 Est GFR (MDRD) Af Amer 78 Est GFR (MDRD) Non-Af 65 BUN/Creatinine Ratio 10.9 Glucose 126 H Calcium 9.6 Total Bilirubin 0.60 AST 27 ALT 28 Alkaline Phosphatase 84 Total Protein 7.4 Albumin 3.6 Globulin 3.8 Albumin/Globulin Ratio 0.9 Lipase 31 Discharge Plan Triage Chief Complaint: Weakness Other Complaint: Fever Lower Extremity Injury Nausea/Vomiting/Diarrhea ED Midlevel Provider: Yaniv Hill ED Provider: Ford Mccollum Dx/Rx/DC Orders Prescriptions: No Action cholecalciferol (vitamin D3) 2,000 unit capsule 2,000 unit PO QDAY cyclobenzaprine 10 mg tablet 10 mg PO HS trazodone 300 MG tablet 300 mg PO QHS Patient Comments: SLEEP DISORDER- INSOMNIA metoprolol succinate [Toprol XL] 50 MG tablet extended release 24 hr 25 mg PO QHS clonazepam 1 MG tablet 1.5 mg PO QHS Patient Comments: TAKE 2 TABLETS AT BEDTIME epinephrine 0.3 MG syringe 0.3 mg IM PRN PRN (Reason: anaphlaxis) vitamin B complex [B Complex-Vitamin B12] 1 EACH tablet 1 tab PO DAILY levothyroxine 75 MCG tablet 75 mcg PO DAILY Primary Care Provider: Mikayla Arita Referrals: Mikayla Arita, JADEN-C [Primary Care Provider] -
[2022-10-20 14:30] LABS: Bacteria 0 SEEN /hpf (None Seen); Mucous, Urine 0 SEEN /hpf (<or=2+); Red Blood Cells-Urine 0 SEEN /hpf (0-5); Squamous Epithelial Cells - UA 0 SEEN /hpf (5-10); White Blood Cells 0 SEEN /hpf (0-5)
[2022-10-20 14:53] LABS: Color, Urine Yellow (Yellow); Glucose, Dipstick Normal (Normal); Ketone-Dipstick Negative (Negative); Leukocyte Esterase-Dipstick Negative /ul (Negative); Nitrite-Dipstick Negative (Negative); Occult Blood-Urine Negative /ul (Negative); Protein-Dipstick Negative (Negative); Specific Gravity, Urine 1.005 (1.002-1.030); Urine Bilirubin Dipstick Negative (Negative); Urine Clarity Clear (Clear); Urine Urobilinogen Normal (Normal)
== END 2022-10-20 14:59 | disposition home or self-care (01) ==
PROVIDERS: Nurse Practitioner; Emergency Provider Emergency Medicine; PCP Nurse Practitioner Family; Visit Provider Emergency Medicine
DX: R14.0 Abdominal distension (gaseous) (principal); E11.9 Type 2 diabetes mellitus without complications; R11.2 Nausea with vomiting, unspecified; I10 Essential (primary) hypertension; Z87.891 Personal history of nicotine dependence; Z79.899 Other long term (current) drug therapy; E03.9 Hypothyroidism, unspecified; Z90.49 Acquired absence of other specified parts of digestive tract; Z90.710 Acquired absence of both cervix and uterus
CPT/HCPCS: 74177; 80053; 81001; 83690; 85025; 96361; 96374; 96375; 99282; J7030; Q9967; A4216; J2405

== ENCOUNTER → 2022-11-28 | Outpatient (CLI) | payer OTHER, SELFPAY ==
--- NOTE | 2022-11-28 15:01 | RAD_ITS ---
INDICATION: BILAT KNEE PAIN EXAMINATION/TECHNIQUE: X-RAY - LEFT XR Knee Complete 4 Views or More 4 VIEWS COMPARISON: FINDINGS: BONES: No fracture demonstrated. Mild degenerative changes at the patellofemoral joint space. JOINTS: No dislocation. SOFT TISSUES: Unremarkable. RAD/Knee 4 or More Views IMPRESSION: No evidence of fracture. Mild degenerative changes. Electronically Signed: Leia Martinez MD at 6:04 EDT ,
--- NOTE | 2022-11-28 15:03 | RAD_ITS ---
INDICATION: BILAT KNEE PAIN BILATERAL KNEE PAIN FOR 3 WEEKS. NO INJURY. EXAMINATION/TECHNIQUE: X-RAY - RIGHT XR Knee Complete 4 Views or More 4 VIEWS COMPARISON: FINDINGS: BONES: No fracture demonstrated. Mild degenerative changes at the patellofemoral joint space. JOINTS: No dislocation. SOFT TISSUES: Unremarkable. RAD/Knee 4 or More Views IMPRESSION: No evidence of fracture. Mild degenerative changes. Electronically Signed: Leia Martinez MD at 6:05 EDT ,
== END | disposition home or self-care (01) ==
LOC: RAD 14:57
PROVIDERS: PCP Nurse Practitioner Family; Referring Provider Anesthesiology Pain Medicine; Visit Provider Anesthesiology Pain Medicine
DX: M25.561 Pain in right knee (principal); M25.562 Pain in left knee
CPT/HCPCS: 73564

== ENCOUNTER → 2022-12-05 | Outpatient (CLI) | payer OTHER, SELFPAY ==
[2022-12-05 12:11] LABS: Anion Gap 4 (5-15); BUN 11 mg/dL (7-18); BUN/Creat Ratio 12.5 RATIO (10-20); Calcium,Total 9.4 mg/dL (8.5-10.1); Chloride 108 mmol/L (98-107); Creatinine, Serum 0.88 mg/dL (0.55-1.02); EST Glomerular Filtration Rate 67 mL/min (>60); Est Glom Filt Rate - Afr Amer 82 mL/min (>60); Glucose 126 mg/dL (74-106); Potassium 4.1 mmol/L (3.5-5.1); Sodium Level 140 mmol/L (136-145); Thyroid Stim Hormone (TSH) 2.26 uIU/mL (0.358-3.74)
== END | disposition home or self-care (01) ==
LOC: LAB 11:09
PROVIDERS: PCP Nurse Practitioner Family
DX: Z79.899 Other long term (current) drug therapy (principal)
CPT/HCPCS: 36415; 80048; 80178; 84443

== ENCOUNTER → 2022-12-19 | Outpatient (CLI) | payer OTHER, SELFPAY ==
--- NOTE | 2022-12-19 16:20 | RAD_ITS ---
STUDY: X-RAY CHEST REASON FOR EXAM: Female, 72 years old patient with acute unspecified lower respiratory infection. TECHNIQUE: PA and lateral views of the chest. COMPARISON: January 27, 2021. FINDINGS: There is moderate elevation right hemidiaphragm. Left lung appears expanded. There is curvilinear opacity the right lung base that probably is secondary to subsegmental atelectasis. There is no demonstrated pleural abnormality. Normal size heart. Normal mediastinum and krish. Normal visualized pulmonary arteries. There is atherosclerotic calcification of the aortic arch with tortuosity. There is demineralization of the osseous structures. Normal visualized ribs, clavicles, and shoulders. There is no demonstrated abnormality of the visualized soft tissue structures of the upper abdomen.There are surgical clips in the right upper quadrant. RAD/Chest PA and Lateral IMPRESSION: Right basilar subsegmental atelectasis. Electronically Signed: Julita Torres MD at 16:57 EDT ,
== END | disposition home or self-care (01) ==
LOC: MTRAD 16:14
PROVIDERS: PCP Nurse Practitioner Family; Referring Provider Nurse Practitioner Family; Visit Provider Nurse Practitioner Family
DX: J22 Unspecified acute lower respiratory infection (principal)
CPT/HCPCS: 71046

== ENCOUNTER → 2023-01-16 | Outpatient (CLI) | payer OTHER, SELFPAY ==
--- NOTE | 2023-01-16 14:32 | US_ITS ---
STUDY: ULTRASOUND BREAST -left REASON FOR EXAM: Female, 72 years old. Palpable lump in the upper inner quadrant of the left breast. TECHNIQUE: Axial and longitudinal images of the left breast were performed with a high resolution ultrasound transducer. # OF IMAGES: 18 COMPARISON: Comparison is made with prior mammogram done earlier in the day. FINDINGS: Left Breast: The upper inner quadrant of the left breast was examined with ultrasound. No sonographic abnormality is seen. US/Breast Limited Unilateral IMPRESSION: No sonographic abnormality is seen. ASSESSMENT CATEGORY: BIRADS Category 1: Negative. A letter regarding these results will be sent to the patient by the facility within 30 days. Electronically Signed: Xu Davila MD at 15:39 EDT ,
--- NOTE | 2023-01-16 14:32 | BI_ITS ---
MAMMOGRAPHY - BILATERAL DIAGNOSTIC REASON FOR EXAM: Female, 72 years old. Two-week history of a left breast lump in the superior retroareolar region of the left breast. PERTINENT HISTORY: Aunt with breast cancer. Prior bilateral breast implants removal. TECHNIQUE: Digital bilateral breast shukri (3D mammographic acquisition) in the CC and MLO projections. 2-D mediolateral oblique (MLO) and craniocaudad (CC) views of both breasts were obtained. CAD: Full Field Digital Mammography with Computer Added Detection was performed. COMPARISON: Comparison is made with prior study March 03, 2022 and September 14, 2020. FINDINGS: Breast Composition: There are scattered areas of fibroglandular density. There are no dominant masses or suspicious calcifications. Stable small benign-appearing bilateral axillary lymph nodes. No other significant abnormalities are identified. There has been no significant change since the prior study. BI/DIAG MAMM W/CAD, BILAT IMPRESSION: Stable bilateral diagnostic mammogram. Routine patient''s history of a palpable lump in the left breast, targeted ultrasound correlation is recommended. ASSESSMENT CATEGORY: BIRADS Category 0: Incomplete. Need additional imaging evaluation. A letter regarding these results will be sent to the patient by the facility within 30 days. Approximately 10% of breast cancers are not detected by mammography. A normal mammogram should not delay biopsy of a clinically suspicious abnormality. Electronically Signed: Xu Davila MD at 15:23 EDT ,
== END | disposition home or self-care (01) ==
PROVIDERS: PCP Nurse Practitioner Family; Referring Provider Nurse Practitioner Family; Visit Provider Nurse Practitioner Family
DX: N63.22 Unspecified lump in the left breast, upper inner quadrant (principal); Z80.3 Family history of malignant neoplasm of breast
CPT/HCPCS: 76642; 77062; 77066; G0279

== ENCOUNTER 2023-03-12 14:03 | Emergency (ER) | payer OTHER, SELFPAY ==
[2023-03-12 14:04] VITALS: BP 214/108; PULSE 112; RESP 16; TEMP 36.6; O2SAT 98
--- NOTE | 2023-03-12 15:24 | EX.ED.DYSGE1 ---
HPI <BATSHEVA Silva - Last Filed: 03/12/23 17:52> History of Present Illness Chief Complaint: Neuro S/Sx Narrative Narrative: Patient is a 72-year-old female with history of anxiety, depression, migraine headaches, hypothyroidism, diabetes who presents to the emergency department with shaking like episodes. Patient states that around noon today, she developed shaking of full body. This concerned her and she is here for evaluation. She also thinks she might have a UTI. She has been on lamotrigine as well as lithium over the last 6 months. Patient states that she felt nauseous this morning as well and is here for evaluation. She denies any fever or chills. She states he has been urinating a lot and is concerned for infection PFS <BATSHEVA Silva - Last Filed: 03/12/23 17:52> [facility] Medical History (Updated 03/12/23 @ 17:52 by BATSHEVA Silva) Burning with urination Chest pain Chronic pain Fatigue Fibromyalgia GERD (gastroesophageal reflux disease) Head ache Hiatal hernia Hypertension Hypothyroidism Mitral valve prolapse Osteopenia Osteoporosis Palpitations Psoriatic arthritis SOB (shortness of breath) Type 2 diabetes mellitus Home Medications cholecalciferol (vitamin D3) 50 mcg (2,000 unit) capsule 2,000 unit PO QDAY 05/30/17 [History Last Taken Unknown] cyclobenzaprine 10 mg tablet 10 mg PO HS 05/30/17 [History Last Taken 02/28/18] trazodone 300 mg tablet 300 mg PO QHS 05/30/17 [History Last Taken 02/28/18] clonazepam 1 mg tablet 1.5 mg PO QHS 03/01/18 [History Last Taken 02/28/18] epinephrine 0.3 mg/0.3 mL injection, auto-injector 0.3 mg IM PRN PRN anaphlaxis 03/01/18 [History Last Taken Unknown] metoprolol succinate 50 mg tablet,extended release 24 hr (Toprol XL) 25 mg PO QHS 03/01/18 [History Last Taken 03/01/18] vitamin B complex (B Complex-Vitamin B12 tablet) 1 tab PO DAILY supplement 03/01/18 [History Last Taken 03/01/18] levothyroxine 75 mcg tablet 75 mcg PO DAILY 11/16/18 [History Last Taken Unknown] ondansetron 4 mg disintegrating tablet 4 mg PO Q8H PRN PRN Nausea #10 tabs 10/20/22 [Rx Last Taken Unknown] Allergy/AdvReac Type Severity Reaction Status Date / Time cefaclor [From Ceclor] Allergy Intermediate Shortness Verified 03/12/23 14:10 of breath amoxicillin trihydrate Allergy Shortness Verified 03/12/23 14:10 [From Augmentin] of breath aspirin Allergy Anaphylaxis Verified 03/12/23 14:10 atropine sulfate Allergy Itching Verified 03/12/23 14:10 [From Lomotil] cefixime [From Suprax] Allergy Itching Verified 03/12/23 14:10 ceftriaxone sodium Allergy Itching Verified 03/12/23 14:10 [From Rocephin] cephalexin monohydrate Allergy Itching Verified 03/12/23 14:10 [From Keflex] ciprofloxacin [From Cipro] Allergy Shortness Verified 03/12/23 14:10 of breath ciprofloxacin HCl Allergy Shortness Verified 03/12/23 14:10 [From Cipro] of breath clindamycin Allergy Itching Verified 03/12/23 14:10 Corticosteroids Allergy PT UNABLE Verified 03/12/23 14:10 (Glucocorticoids) TO RESPOND-NEEDS F/U diphenoxylate HCl Allergy Itching Verified 03/12/23 14:10 [From Lomotil] gentamicin [Gentamicin] Allergy Itching Verified 03/12/23 14:10 hydromorphone HCl Allergy Itching Verified 03/12/23 14:10 [From Exalgo ER] Iodinated Contrast Media Allergy Rash Verified 03/12/23 14:10 metoclopramide HCl Allergy Anaphylaxis Verified 03/12/23 14:10 [From Reglan] Penicillins [PCN] Allergy Itching Verified 10/20/22 11:23 phenazopyridine HCl Allergy Itching Verified 03/12/23 14:10 [From Pyridium] potassium clavulanate Allergy Shortness Verified 03/12/23 14:10 [From Augmentin] of breath propoxyphene HCl Allergy Itching Verified 03/12/23 14:10 [From Darvon] red dye Allergy Itching Verified 03/12/23 14:10 Sulfa (Sulfonamide Allergy Itching Verified 03/12/23 14:10 Antibiotics) adhesive tape AdvReac Severe skin peels Verified 03/12/23 14:10 clarithromycin [From Biaxin] AdvReac Severe Vomiting Verified 03/12/23 14:10 ketorolac tromethamine AdvReac Severe Vomiting Verified 03/12/23 14:10 [From Toradol] verapamil [Verapamil] AdvReac Severe Other Verified 03/12/23 14:10 levofloxacin [From Levaquin] AdvReac Unknown Unknown Verified 03/12/23 14:10 phenazopyridine AdvReac Unknown Unknown Verified 03/12/23 14:10 [From Pyridium] carbamazepine [From Tegretol] AdvReac Unknown Verified 03/12/23 14:10 duloxetine HCl AdvReac Unknown Verified 03/12/23 14:10 [From Cymbalta] gabapentin [From Neurontin] AdvReac Other Verified 03/12/23 14:10 guaifenesin [From Entex T] AdvReac Vomiting Verified 03/12/23 14:10 levalbuterol [From Xopenex] AdvReac DYSTONIA Verified 03/12/23 14:10 midazolam HCl [From Versed] AdvReac Other Verified 03/12/23 14:10 phenobarbital AdvReac Other Verified 03/12/23 14:10 pseudoephedrine HCl AdvReac Vomiting Verified 03/12/23 14:10 [From Entex T] quetiapine fumarate AdvReac Other Verified 03/12/23 14:10 [From Seroquel] Family History Father CAD (coronary artery disease) Mother CVA (cerebral vascular accident) Grandfather Heart disease Grandmother Heart disease Uncle Sudden cardiac , Onset Age: 30 Surgical History History of cholecystectomy History of total hysterectomy Hx of appendectomy Social History household members: spouse Smoking Status: Former smoker alcohol intake: never substance use type: does not use ROS <BATSHEVA Silva - Last Filed: 03/12/23 17:52> ROS ED ROS Narrative Constitutional: Negative for fever, chills, weight loss, weakness Eyes: Negative for vision loss, vision change, double vision ENT: Negative for any sore throat, ear pain, congestion Cardiovascular: Negative for any chest pain, tightness, palpitations Respiratory: Negative for any cough, sputum production, hemoptysis, dyspnea, dyspnea on exertion, orthopnea Gastrointestinal: Negative for any abdominal pain, nausea, vomiting, diarrhea, constipation, blood in stool, blood in vomit : Negative for any dysuria, retention, blood in urine. Positive for urinary frequency Muscle skeletal: Negative for any myalgias, arthralgias, neck pain, back pain Neurological: Negative for any headache, syncope, numbness or tingling, dizziness. Positive for full body shaking that is intermittent Skin: Negative for any rashes, lumps, itching, abrasions, lacerations Psychiatric: Negative for any depression, anxiety, stress, suicidal ideation, homicidal ideation Hematologic: Negative for any easy bruising, excessive bruising, easy bleeding Allergies: Negative for any eczema, hives, rash EXAM <BATSHEVA Silva - Last Filed: 03/12/23 17:52> Physical Exam Narrative Exam Narrative: Vital signs reviewed. Patient appears to be in no distress. Patient's full body shaking is intermittent. I am not sure that this is pathologic I do believe this might be psychiatric. This is secondary to the control the patient has over her shaking. While I was performing certain parts of my exam, I asked her to stop shaking and she did. HEET: Head normocephalic atraumatic, TMs clear bilaterally. Posterior pharynx is clear, moist mucous membranes. Nares clear bilaterally. Neck: Supple with no lymphadenopathy or tenderness. No signs of meningismus. Cardiac: Regular rate and rhythm no murmurs gallops or rubs, equal peripheral pulses bilaterally. Respiratory: Lungs clear to auscultation bilaterally. No chest tenderness. Abdomen: Soft, nontender, nondistended. No abdominal bruit or pulsatile masses. No hepatosplenomegaly Extremities: No peripheral edema, no signs of gross trauma or deformity. Active full range of motion of all extremities. Neuro: Cranial nerves II through XII intact, no focal neurological deficits. NIH stroke scale 0 Skin: Clean dry and intact with no rash, purpura, petechiae, vesicles or pustules. Backs/flank: No CVA tenderness, no midline spinal tenderness, no deformity. Psych: Normal mood and affect. No SI, HI or acute psychosis. Const Vital Signs: 03/12/23 14:04 03/12/23 17:19 Temperature 98 F Temperature Source Temporal Pulse Rate 112 H 91 Respiratory Rate 16 16 Blood Pressure 214/108 H 123/60 H Blood Pressure Mean 143 81 Pulse Ox 98 99 Oxygen Delivery Method Room Air Room Air Positive well nourished and well developed General Appearance ED: well developed <Dr. Clark Vásquez DO - Last Filed: 03/12/23 22:19> Physical Exam Const Vital Signs: 03/12/23 14:04 03/12/23 17:19 Temperature 98 F Temperature Source Temporal Pulse Rate 112 H 91 Respiratory Rate 16 16 Blood Pressure 214/108 H 123/60 H Blood Pressure Mean 143 81 Pulse Ox 98 99 Oxygen Delivery Method Room Air Room Air MDM <BATSHEVA Silva - Last Filed: 03/12/23 17:52> MDM Lab Data Labs: Laboratory Results - last 24 hr 03/12/23 03/12/23 15:34 15:43 WBC 11.2 H RBC 5.06 Hgb 16.1 H Hct 48.4 H MCV 95.7 MCH 31.8 MCHC 33.3 RDW Std Deviation 43.5 RDW Coeff of Doreen 12.4 Plt Count 241 MPV 9.8 Immature Gran % (Auto) 0.600 Neut % (Auto) 60.0 Lymph % (Auto) 26.1 [place] % (Auto) 9.9 Eos % (Auto) 2.6 Baso % (Auto) 0.8 Absolute Neuts (auto) 6.7 Absolute Lymphs (auto) 2.92 Nucleated RBC % 0 Sodium 137 Potassium 4.3 Chloride 105 Carbon Dioxide 27.0 Anion Gap 5 BUN 12 Creatinine 0.94 Estim Creat Clear Calc 48.09 Est GFR (MDRD) Af Amer 76 Est GFR (MDRD) Non-Af 63 BUN/Creatinine Ratio 12.8 Glucose 98 Calcium 9.8 Urine Color Yellow Urine Clarity Clear Urine pH 8.0 Ur Specific Otto 1.010 Urine Protein 15 H Urine Glucose (UA) Normal Urine Ketones Negative Urine Occult Blood 25 H Urine Nitrite Negative Urine Bilirubin Negative Urine Urobilinogen Normal Ur Leukocyte Esterase 100 H Urine RBC 0-5 SEEN Urine WBC 5-10 SEEN Ur Squamous Epith Cells 0 SEEN Urine Bacteria 0 SEEN Urine Mucus 0 SEEN Cantrall 0.60 Radiography Diagnostic Testing: Clinical Impression(s) from Imaging Studies Brain CT 11/20/23 15:30 IMPRESSION: No acute intracranial finding. Electronically Signed: Cj Perales MD at 17:06 EST , Treatment and Re-Evaluation :: Patient appears generally well, patient appears nontoxic, vital signs are stable. Presenting to the emergency department for intermittent shaking that began at noon today. On my physical examination I do believe this is more psychologic than pathologic. Patient will receive basic laboratory values as well as a urinalysis concerning for any UTI. Patient will also receive a lithium level to ensure for any elevation. Patient's repeat examination shows the patient is resting comfortably. Patient states that she is decreasing her bouts of shaking. Patient CBC was unremarkable, slightly hemoconcentrated. Patient's chemistries were unremarkable, lithium level was 0.6 which is with in normal range. A lamotrigine level was sent however this is a send out. Patient's urinalysis showed 100 leukoesterase, 5-10 white blood cells however no bacteria seen. At this time, patient be discharged home. The patient is shaking could be secondary to medication side effects however this could also be an emotional response. When I was in patient's room talking with her, she did not shake 1 time. I do believe patient stable for discharge. <Dr. Clark Vásquez, DO - Last Filed: 03/12/23 22:19> [facility] Lab Data Attestation: I reviewed the patient's lab results. Labs: Laboratory Results - last 24 hr 03/12/23 03/12/23 15:34 15:43 WBC 11.2 H RBC 5.06 Hgb 16.1 H Hct 48.4 H MCV 95.7 MCH 31.8 MCHC 33.3 RDW Std Deviation 43.5 RDW Coeff of Doreen 12.4 Plt Count 241 MPV 9.8 Immature Gran % (Auto) 0.600 Neut % (Auto) 60.0 Lymph % (Auto) 26.1 [place] % (Auto) 9.9 Eos % (Auto) 2.6 Baso % (Auto) 0.8 Absolute Neuts (auto) 6.7 Absolute Lymphs (auto) 2.92 Nucleated RBC % 0 Sodium 137 Potassium 4.3 Chloride 105 Carbon Dioxide 27.0 Anion Gap 5 BUN 12 Creatinine 0.94 Estim Creat Clear Calc 48.09 Est GFR (MDRD) Af Amer 76 Est GFR (MDRD) Non-Af 63 BUN/Creatinine Ratio 12.8 Glucose 98 Calcium 9.8 Urine Color Yellow Urine Clarity Clear Urine pH 8.0 Ur Specific Otto 1.010 Urine Protein 15 H Urine Glucose (UA) Normal Urine Ketones Negative Urine Occult Blood 25 H Urine Nitrite Negative Urine Bilirubin Negative Urine Urobilinogen Normal Ur Leukocyte Esterase 100 H Urine RBC 0-5 SEEN Urine WBC 5-10 SEEN Ur Squamous Epith Cells 0 SEEN Urine Bacteria 0 SEEN Urine Mucus 0 SEEN Cantrall 0.60 Radiography Diagnostic Testing: Clinical Impression(s) from Imaging Studies Brain CT 03/12/23 15:30 IMPRESSION: No acute intracranial finding. Electronically Signed: Cj Perales MD at 17:06 EST , Treatment and Re-Evaluation :: Patient appears generally well, patient appears nontoxic, vital signs are stable. Presenting to the emergency department for intermittent shaking that began at noon today. On my physical examination I do believe this is more psychologic than pathologic. Patient will receive basic laboratory values as well as a urinalysis concerning for any UTI. Patient will also receive a lithium level to ensure for any elevation. Patient's repeat examination shows the patient is resting comfortably. Patient states that she is decreasing her bouts of shaking. Patient CBC was unremarkable, slightly hemoconcentrated. Patient's chemistries were unremarkable, lithium level was 0.6 which is with in normal range. A lamotrigine level was sent however this is a send out. Patient's urinalysis showed 100 leukoesterase, 5-10 white blood cells however no bacteria seen. At this time, patient be discharged home. The patient is shaking could be secondary to medication side effects however this could also be an emotional response. When I was in patient's room talking with her, she did not shake 1 time. I do believe patient stable for discharge. I have personally performed a face to face assessment of the patient and have reviewed the ROBERTO Note. I performed a substantive portion of the visit including all aspects of the following. My rosas findings include: History is around noon the patient was speaking on the phone with her sister. She states her arms started to tremor up to the shoulders and teeth and jaw also over having tremors. She states she was stuttering to get her words out. Symptoms have reportedly stopped. The patient was doing them reportedly on initial examination they stopped. She states that she has been on Lamictal for 2 weeks. She is also on lithium. No other medication changes. Patient notes a headache that is generalized and mild. She denies any arm or leg weakness. No vision changes. Exam is nonfocal. NIH is 0. She is conversant and appears well. Medical Decison Making basic labs were negative. CT of the brain negative. I am not sure if this is conversion but I am not seeing anything obvious to explain the patient's sudden onset of tremor. I do not see anything that would require hospitalization and I would find that this would be significantly atypical for stroke. Seizure is unlikely. This is bilateral in nature the patient was awake and talking during it. Discharge Plan Triage Chief Complaint: Neuro S/Sx ED Midlevel Provider: Yaniv Hill ED Provider: Clark Vásquez Dx/Rx/DC Orders Clinical Impression: Episode of shaking, Anxiety, Action tremor Instructions: Anxiety Disorders Medicine, [place] to Managing Stress Prescriptions: No Action cholecalciferol (vitamin D3) 2,000 unit capsule 2,000 unit PO QDAY cyclobenzaprine 10 mg tablet 10 mg PO HS trazodone 300 MG tablet 300 mg PO QHS Patient Comments: SLEEP DISORDER- INSOMNIA metoprolol succinate [Toprol XL] 50 MG tablet extended release 24 hr 25 mg PO QHS clonazepam 1 MG tablet 1.5 mg PO QHS Patient Comments: TAKE 2 TABLETS AT BEDTIME epinephrine 0.3 MG syringe 0.3 mg IM PRN PRN (Reason: anaphlaxis) vitamin B complex [B Complex-Vitamin B12] 1 EACH tablet 1 tab PO DAILY levothyroxine 75 MCG tablet 75 mcg PO DAILY ondansetron 4 mg tablet,disintegrating 4 mg PO Q8H PRN PRN (Reason: Nausea) Qty: 10 0RF Primary Care Provider: Mikayla Arita Referrals: Mikayla Arita, JADEN-C [Primary Care Provider] - Activity Restrictions/Additional Instructions: Please take your medications as prescribed, please follow-up outpatient. Return here for any worsening symptoms. I did Send her urine for culture. Disposition Disposition: Home, Self Care Discharge Date/Time: 03/12/23 18:02
--- NOTE | 2023-03-12 15:30 | CT_ITS ---
INDICATION: tremors EXAMINATION: CT BRAIN - CT Head or Brain W/O Contrast Injection TECHNIQUE: Multiple axial images were obtained of the head without intravenous contrast. A radiation dose optimization technique was used for this scan. IV Contrast dosage and agent: None. RADIATION DOSAGE (If Supplied By Facility): CTDIvol = ( 44.99 ) mGy, DLP = ( 748.3 ) mGycm COMPARISON: Prior study dated: 11/16/2018 FINDINGS: BRAIN PARENCHYMA: No intra- or extra-axial hemorrhage. No evidence of acute infarct. No intracranial mass or mass effect. There is preservation of the dudley/white matter interface. Posterior fossa structures are unremarkable. Patchy periventricular and deep white matter hypoattenuation is consistent with mild small vessel ischemic change. CSF SPACES: Proportional prominence of the ventricles and sulcal spaces is consistent with mild cerebral volume loss. No hydrocephalus. Basal cisterns are patent. CALVARIUM, SKULL BASE, PARANASAL SINUSES AND MASTOID AIR CELLS: Trace fluid layering in the left maxillary sinus. The mastoid air cells and visualized paranasal sinuses are otherwise well aerated. The calvarium is intact. No discrete lytic or blastic abnormalities. ORBITS: Both globes, extraocular muscles, optic nerves and retrobulbar fat appear unremarkable. CT/Brain/Head without Contrast IMPRESSION: No acute intracranial finding. Electronically Signed: Cj Perales MD at 17:06 EST ,
[2023-03-12 15:51] VITALS: BMI 30.4
[2023-03-12 15:57] LABS: Absolute Lymphocyte Count 2.92 X10^3/uL (0.83-4.51); Absolute Neutrophil Count 6.7 X10^3/uL (2.0-7.7); Basophil# 0.09 X10^3/uL; Basophil% 0.8 % (0-1); Eosinophil# 0.29 X10^3/uL; Eosinophils% 2.6 % (0-5); Hematocrit 48.4 % (37-47); Hemoglobin 16.1 g/dL (12.0-15.0); Lymphocyte # 2.92 X10^3/ul (0.83-4.51); Lymphocyte % 26.1 % (19-41); Mean Corp Hgb Conc 33.3 g/dL (32-36); Mean Corpuscular Hgb 31.8 pg (27.0-32.0); Mean Corpuscular Volume 95.7 fL (81-99); Mean Platelet Vol. 9.8 fl (6.2-12.0); Monocyte# 1.11 X10^3/uL; Monocyte% 9.9 % (0-10); NRBC Flagged by Analyzer 0 % (0-5); Neutrophil # 6.71 X10^3/uL (2.7-7.7); Platelet Count 241 K/mm3 (150-450); RBC Distribution Width CV 12.4 % (11.6-14.6); RBC Distribution Width SD 43.5 fl (35.1-43.9); Red Blood Count 5.06 M/mm3 (4.2-5.4); White Blood Count 11.2 K/mm3 (4.4-11.0)
[2023-03-12 16:11] VITALS: BMI 30.4
[2023-03-12 16:11] LABS: Anion Gap 5 (5-15); BUN 12 mg/dL (7-18); BUN/Creat Ratio 12.8 RATIO (10-20); Calcium,Total 9.8 mg/dL (8.5-10.1); Chloride 105 mmol/L (98-107); Creatinine, Serum 0.94 mg/dL (0.55-1.02); EST Glomerular Filtration Rate 63 mL/min (>60); Est Glom Filt Rate - Afr Amer 76 mL/min (>60); Estimated Creatinine Clearance 48.09 ml/min; Glucose 98 mg/dL (74-106); Potassium 4.3 mmol/L (3.5-5.1); Sodium Level 137 mmol/L (136-145)
[2023-03-12 16:14] LABS: Bacteria 0 SEEN /hpf (None Seen); Mucous, Urine 0 SEEN /hpf (<or=2+); Squamous Epithelial Cells - UA 0 SEEN /hpf (5-10)
[2023-03-12 16:16] LABS: Color, Urine Yellow (Yellow); Glucose, Dipstick Normal (Normal); Ketone-Dipstick Negative (Negative); Leukocyte Esterase-Dipstick 100 /ul (Negative); Nitrite-Dipstick Negative (Negative); Occult Blood-Urine 25 /ul (Negative); Protein-Dipstick 15 mg/dl (Negative); Urine Bilirubin Dipstick Negative (Negative); Urine Clarity Clear (Clear); Urine Urobilinogen Normal (Normal)
[2023-03-12] MEDS: Ondansetron 4 MG/2 ML Vial IV (16:16)
[2023-03-12] MEDS: 0.9% Normal Saline (1000mL) 1,000 ML 1000 ML IV (16:16)
[2023-03-12 16:30] LABS: Red Blood Cells-Urine 0-5 SEEN /hpf (0-5); White Blood Cells 5-10 SEEN /hpf (0-5)
[2023-03-12 17:19] VITALS: BP 123/60; PULSE 91; RESP 16; O2SAT 99
[2023-03-15 11:08] LABS: Lamotrigine (Lamictal) Level < 1.0 ug/mL (2.0-20.0)
== END 2023-03-12 18:02 | disposition home or self-care (01) ==
PROVIDERS: Nurse Practitioner; Emergency Provider Emergency Medicine; PCP Nurse Practitioner Family; Visit Provider Emergency Medicine
DX: G25.2 Other specified forms of tremor (principal); E11.9 Type 2 diabetes mellitus without complications; F41.9 Anxiety disorder, unspecified; Z87.891 Personal history of nicotine dependence; I10 Essential (primary) hypertension; Z79.899 Other long term (current) drug therapy; E03.9 Hypothyroidism, unspecified; Z90.49 Acquired absence of other specified parts of digestive tract; Z90.710 Acquired absence of both cervix and uterus
CPT/HCPCS: 70450; 80048; 80178; 81001; 82542; 85025; 87086; 87088; 96361; 96374; 99282; J7030; A4216; J2405

== ENCOUNTER → 2023-05-22 | Outpatient (CLI) | payer OTHER, SELFPAY ==
--- NOTE | 2023-05-22 15:55 | RAD_ITS ---
INDICATION: RIGHT SHOULDER PAIN EXAMINATION/TECHNIQUE: X-RAY - RIGHT XR Shoulder 4 VIEWS COMPARISON: FINDINGS: SOFT TISSUES: No soft tissue swelling or gas. No radiopaque foreign body. BONES/JOINTS: No acute fracture or subluxation.. Normal alignment. Preservation of the joint space.. No sclerotic or destructive changes observed. RAD/Shoulder min 2 Views IMPRESSION: No acute bony injury. Electronically Signed: Bonilla Belle DO at 16:33 EST ,
== END | disposition home or self-care (01) ==
PROVIDERS: PCP Nurse Practitioner Family; Referring Provider Anesthesiology Pain Medicine; Visit Provider Anesthesiology Pain Medicine
DX: M25.511 Pain in right shoulder (principal)
CPT/HCPCS: 73030

== ENCOUNTER 2023-07-24 12:41 | Emergency (ER) | payer OTHER, SELFPAY ==
[2023-07-24 12:42] VITALS: BP 158/78; BP 171/68; PULSE 132; PULSE 133; RESP 14; TEMP 36.3; O2SAT 97; O2SAT 98
--- NOTE | 2023-07-24 13:02 | ED.RN ---
pt states she has been having feelings of heart racing for approx. 3-4 days. initially it was intermittent but today and last night it has been constant. she does endorse some chest discomfort that radiates to her back and neck. she also reports intermittent fevers with a low grade fever last noted approx. 3 days ago.
--- NOTE | 2023-07-24 13:25 | RAD_ITS ---
STUDY: X-RAY CHEST REASON FOR EXAM: Female, 72 years old. Dyspnea TECHNIQUE: Single AP portable view of the chest. COMPARISON: Comparison is made with prior study dated February 16, 2023. FINDINGS: EKG electrodes are seen. There is elevation of the right hemidiaphragm. There is no demonstrated pleural abnormality. Normal size heart. Normal mediastinum and krish. Normal visualized pulmonary arteries. There is atherosclerotic calcification of the aortic arch with tortuosity. Normal visualized thoracic spine. Normal visualized ribs, clavicles, and shoulders. There is no demonstrated abnormality of the visualized soft tissue structures of the upper abdomen. RAD/Chest 1 View (Portable) IMPRESSION: Elevation of the right hemidiaphragm. The lungs are clear. Electronically Signed: Xu Davila MD at 13:56 EDT ,
--- NOTE | 2023-07-24 13:25 | EKG12_ITS ---
Test Reason : PALPS Blood Pressure : / mmHG Vent. Rate : 125 BPM Atrial Rate : 125 BPM P-R Int : 132 ms QRS Dur : 084 ms QT Int : 326 ms P-R-T Axes : 066 026 039 degrees QTc Int : 470 ms Sinus tachycardia Cannot rule out Inferior infarct , age undetermined Abnormal ECG Confirmed by DONNA GARZA, JENIFFER ([id number]), science editor RATNA SOSA ([id number]) on 07/25/2023 9:35:52 AM Referred By: OUSMANE Confirmed By:JENIFFER THOMPSON MD
[2023-07-24 13:43] LABS: Absolute Lymphocyte Count 2.47 X10^3/uL (0.83-4.51); Absolute Neutrophil Count 5.5 X10^3/uL (2.0-7.7); Basophil# 0.06 X10^3/uL; Basophil% 0.7 % (0-1); Eosinophil# 0.36 X10^3/uL; Hematocrit 45.7 % (37-47); Hemoglobin 15.3 g/dL (12.0-15.0); Lymphocyte # 2.47 X10^3/ul (0.83-4.51); Lymphocyte % 27.2 % (19-41); Mean Corp Hgb Conc 33.5 g/dL (32-36); Mean Corpuscular Hgb 31.3 pg (27.0-32.0); Mean Corpuscular Volume 93.5 fL (81-99); Mean Platelet Vol. 9.8 fl (6.2-12.0); Monocyte# 0.68 X10^3/uL; Monocyte% 7.5 % (0-10); NRBC Flagged by Analyzer 0 % (0-5); Neutrophil # 5.49 X10^3/uL (2.7-7.7); Neutrophil % 60.3 % (47-70); Platelet Count 266 K/mm3 (150-450); RBC Distribution Width CV 13.1 % (11.6-14.6); RBC Distribution Width SD 44.8 fl (35.1-43.9); Red Blood Count 4.89 M/mm3 (4.2-5.4); White Blood Count 9.1 K/mm3 (4.4-11.0)
[2023-07-24 14:04] LABS: Anion Gap 7 (5-15); BUN 12 mg/dL (7-18); BUN/Creat Ratio 12.6 RATIO (10-20); Calcium,Total 9.3 mg/dL (8.5-10.1); Chloride 108 mmol/L (98-107); Creatinine, Serum 0.95 mg/dL (0.55-1.02); EST Glomerular Filtration Rate 62 mL/min (>60); Est Glom Filt Rate - Afr Amer 74 mL/min (>60); Glucose 200 mg/dL (74-106); Potassium 3.8 mmol/L (3.5-5.1); Sodium Level 139 mmol/L (136-145); Thyroid Stim Hormone (TSH) 0.26 uIU/mL (0.358-3.74); Troponin-I HS 5 pg/mL (3.0-54.0)
[2023-07-24 14:42] VITALS: BP 133/67; PULSE 102; RESP 18; O2SAT 92
--- NOTE | 2023-07-24 14:55 | EX.ED.DYSGE1 ---
HPI History of Present Illness Chief Complaint: Palpitations Informant: patient and spouse/S.O. Narrative Narrative: 9-year-old female presenting to the emergency room with tachycardia. Patient denies any recent change in medications. She starts to tell me that she has a medical marijuana card wants to make sure that I know that and that her dosing has not changed in years. She has a history of diabetes hypothyroidism fibromyalgia mitral valve prolapse and hypertension. She takes metoprolol 50 mg once a day. Though the computer has this at 25 mg once a day. Patient states that she has not had any significant leg swelling or weight gain. Patient's history is difficult to obtain that she uses vague descriptions and correlations. Even when I specifically asked the direct point in question. [facility] Medical History Burning with urination Chest pain Chronic pain Fatigue Fibromyalgia GERD (gastroesophageal reflux disease) Head ache Hiatal hernia Hypertension Hypothyroidism Mitral valve prolapse Osteopenia Osteoporosis Palpitations Psoriatic arthritis SOB (shortness of breath) Type 2 diabetes mellitus Home Medications cholecalciferol (vitamin D3) 50 mcg (2,000 unit) capsule 2,000 unit PO QDAY 05/30/17 [History Last Taken Unknown] cyclobenzaprine 10 mg tablet 10 mg PO HS 05/30/17 [History Last Taken 02/28/18] trazodone 300 mg tablet 300 mg PO QHS 05/30/17 [History Last Taken 02/28/18] clonazepam 1 mg tablet 1.5 mg PO QHS 03/01/18 [History Last Taken 02/28/18] epinephrine 0.3 mg/0.3 mL injection, auto-injector 0.3 mg IM PRN PRN anaphlaxis 03/01/18 [History Last Taken Unknown] metoprolol succinate 50 mg tablet,extended release 24 hr (Toprol XL) 25 mg PO QHS 03/01/18 [History Last Taken 03/01/18] vitamin B complex (B Complex-Vitamin B12 tablet) 1 tab PO DAILY supplement 03/01/18 [History Last Taken 03/01/18] levothyroxine 75 mcg tablet 75 mcg PO DAILY 11/16/18 [History Last Taken Unknown] ondansetron 4 mg disintegrating tablet 4 mg PO Q8H PRN PRN Nausea #10 tabs 10/20/22 [Rx Last Taken Unknown] Allergy/AdvReac Type Severity Reaction Status Date / Time cefaclor [From Ceclor] Allergy Intermediate Shortness Verified 07/24/23 12:42 of breath amoxicillin trihydrate Allergy Shortness Verified 07/24/23 12:42 [From Augmentin] of breath aspirin Allergy Anaphylaxis Verified 07/24/23 12:42 atropine sulfate Allergy Itching Verified 07/24/23 12:42 [From Lomotil] cefixime [From Suprax] Allergy Itching Verified 07/24/23 12:42 ceftriaxone sodium Allergy Itching Verified 07/24/23 12:42 [From Rocephin] cephalexin monohydrate Allergy Itching Verified 07/24/23 12:42 [From Keflex] ciprofloxacin [From Cipro] Allergy Shortness Verified 07/24/23 12:42 of breath ciprofloxacin HCl Allergy Shortness Verified 07/24/23 12:42 [From Cipro] of breath clindamycin Allergy Itching Verified 07/24/23 12:42 Corticosteroids Allergy PT UNABLE Verified 07/24/23 12:42 (Glucocorticoids) TO RESPOND-NEEDS F/U diphenoxylate HCl Allergy Itching Verified 07/24/23 12:42 [From Lomotil] gentamicin [Gentamicin] Allergy Itching Verified 07/24/23 12:42 hydromorphone HCl Allergy Itching Verified 07/24/23 12:42 [From Exalgo ER] Iodinated Contrast Media Allergy Rash Verified 07/24/23 12:42 metoclopramide HCl Allergy Anaphylaxis Verified 07/24/23 12:42 [From Reglan] Penicillins [PCN] Allergy Itching Verified 07/24/23 12:42 phenazopyridine HCl Allergy Itching Verified 07/24/23 12:42 [From Pyridium] potassium clavulanate Allergy Shortness Verified 07/24/23 12:42 [From Augmentin] of breath propoxyphene HCl Allergy Itching Verified 07/24/23 12:42 [From Darvon] red dye Allergy Itching Verified 07/24/23 12:42 Sulfa (Sulfonamide Allergy Itching Verified 07/24/23 12:42 Antibiotics) adhesive tape AdvReac Severe skin peels Verified 07/24/23 12:42 clarithromycin [From Biaxin] AdvReac Severe Vomiting Verified 07/24/23 12:42 ketorolac tromethamine AdvReac Severe Vomiting Verified 07/24/23 12:42 [From Toradol] verapamil [Verapamil] AdvReac Severe Other Verified 07/24/23 12:42 levofloxacin [From Levaquin] AdvReac Unknown Unknown Verified 07/24/23 12:42 phenazopyridine AdvReac Unknown Unknown Verified 07/24/23 12:42 [From Pyridium] carbamazepine [From Tegretol] AdvReac Unknown Verified 07/24/23 12:42 duloxetine HCl AdvReac Unknown Verified 07/24/23 12:42 [From Cymbalta] gabapentin [From Neurontin] AdvReac Other Verified 07/24/23 12:42 guaifenesin [From Entex T] AdvReac Vomiting Verified 07/24/23 12:42 levalbuterol [From Xopenex] AdvReac DYSTONIA Verified 07/24/23 12:42 midazolam HCl [From Versed] AdvReac Other Verified 07/24/23 12:42 phenobarbital AdvReac Other Verified 07/24/23 12:42 pseudoephedrine HCl AdvReac Vomiting Verified 07/24/23 12:42 [From Entex T] quetiapine fumarate AdvReac Other Verified 07/24/23 12:42 [From Seroquel] Family History Father CAD (coronary artery disease) Mother CVA (cerebral vascular accident) Grandfather Heart disease Grandmother Heart disease Uncle Sudden cardiac , Onset Age: 30 Surgical History History of cholecystectomy History of total hysterectomy Hx of appendectomy Social History household members: spouse Smoking Status: Former smoker alcohol intake: never substance use type: does not use ROS ROS ED Constitutional Constitutional ED: Denies chills, fever(s) or weight loss Eyes Eyes: Denies change in vision or diplopia ENT ENT ED: Denies ear pain, rhinorrhea or sore throat Cardiovascular Cardiovascular: Reports racing heartbeat; Denies chest pain, orthopnea or palpitations Respiratory/Chest Respiratory/Chest: Reports dyspnea on exertion; Denies cough or orthopnea Gastrointestinal Gastrointestinal: Denies abdominal pain, diarrhea, nausea or vomiting Genitourinary Genitourinary ED: Denies dysuria, hematuria or urinary frequency Musculoskeletal Musculoskeletal: Denies arthralgias or myalgias Integumentary Denies abscess or rash Neurologic Neurologic: Reports other Details: Difficulty walking x 24 hours due to dizziness/offbalance ; Denies headache(s) or weakness Psychiatric Psychiatric: Denies anxiety, depression, suicidal ideation or suicidal thoughts Endocrine Endocrinology: Denies polydipsia, polyphagia or polyuria Allergic/Immunologic Allergic/Immunologic ED: Denies mouth swelling, tongue swelling or urticaria EXAM Physical Exam Const Vital Signs: 07/24/23 12:42 07/24/23 12:42 07/24/23 13:00 Temperature 97.3 F L Temperature Source Temporal Pulse Rate 133 H 132 H Respiratory Rate 14 14 Respiratory Effort Short of Breath Blood Pressure 171/68 H 158/78 H Blood Pressure Mean 102 104 Pulse Ox 97 98 Oxygen Delivery Method Room Air Room Air 07/24/23 14:42 07/24/23 16:00 Temperature Temperature Source Pulse Rate 102 H 103 H Respiratory Rate 18 21 H Respiratory Effort Blood Pressure 133/67 H 123/55 H Blood Pressure Mean 89 77 Pulse Ox 92 94 Oxygen Delivery Method Room Air Room Air Positive well nourished and well developed General Appearance ED: well developed HEENT Reports normocephalic, head/scalp atraumatic and moist mucous membranes Eyes PERRL and EOMs intact bilaterally Neck no lymphadenopathy, supple and no JVD Resp normal respiratory effort and clear to auscultation bilaterally Cardio regular rate, regular rhythm and no murmurs Rate: tachycardic GI normal to inspection, nondistended, normoactive bowel sounds and non-tender Palpation: soft Back/Spine no CVA tenderness and normal ROM Extremity normal to inspection General Extremety ED: Negative for edema General Extremity: Negative for edema Neuro oriented x3 and CN's II-XII intact bilaterally Sensorium / Orientation: alert Motor Exam: strength 5/5 throughout Psych mental status grossly normal Mood & Affect: Negative for depressed or tearful Skin no rashes or lesions noted and no wounds MDM MDM MDM Narrative Medical decision making narrative: While being watched on the monitor and laying in the room heart rate comes down to 98 bpm and continues to be in sinus. She has not missed any metoprolol. patient blood work white count 9.1 hemoglobin 15.3 platelet count 266. CO2 24 anion gap 7 BUN 12 creatinine 0.85 troponin 5 magnesium 2 TSH 0.26. My independent interpretation of the chest x-ray is no acute process. Patient noted to be fully off balance while walking per nursing. CT of the head was negative. Urinalysis shows 1+ bacteria positive nitrates but she is asymptomatic and there is 0-5 whites. I can send this for culture. Patient's not hypoxic or tachypneic. I do not think this is pulmonary embolism. I do not think this is aortic dissection. Not hearing any significant cardiac murmur. Talked with the patient and her . I reviewed the workup so far. I asked her if she felt safe going home and she does. Told her she may need to get an echocardiogram and if feeling off balance persist she may need an MRI. We talked about seen in the hospital and at this point using shared decision making we will discharge her home. She is going to call her doctor tomorrow. She understands return instructions. History & Record Review Discussion w/independent historian: Patient and Significant other Lab Data Attestation: I reviewed the patient's lab results. Labs: Laboratory Results - last 24 hr 07/24/23 07/24/23 07/24/23 12:55 15:30 15:35 WBC 9.1 RBC 4.89 Hgb 15.3 H Hct 45.7 MCV 93.5 MCH 31.3 MCHC 33.5 RDW Std Deviation 44.8 H RDW Coeff of Doreen 13.1 Plt Count 266 MPV 9.8 Immature Gran % (Auto) 0.300 Neut % (Auto) 60.3 Lymph % (Auto) 27.2 Stokes % (Auto) 7.5 Eos % (Auto) 4.0 Baso % (Auto) 0.7 Absolute Neuts (auto) 5.5 Absolute Lymphs (auto) 2.47 Nucleated RBC % 0 Sodium 139 Potassium 3.8 Chloride 108 H Carbon Dioxide 24.0 Anion Gap 7 BUN 12 Creatinine 0.95 Est GFR (MDRD) Af Amer 74 Est GFR (MDRD) Non-Af 62 BUN/Creatinine Ratio 12.6 Glucose 200 H Calcium 9.3 Magnesium 2.0 Total Bilirubin 0.60 Direct Bilirubin 0.16 AST 22 ALT 28 Alkaline Phosphatase 87 Troponin I High Sens 5 Total Protein 6.6 Albumin 3.6 Globulin 3.0 TSH 0.26 L Urine Color Yellow Urine Clarity Sl. Cloudy Urine pH 7.0 Ur Specific [place] 1.010 Urine Protein Negative Urine Glucose (UA) Normal Urine Ketones Negative Urine Occult Blood Negative Urine Nitrite Positive H Urine Bilirubin Negative Urine Urobilinogen Normal Ur Leukocyte Esterase 25 H Urine RBC 0 SEEN Urine WBC 0-5 SEEN Ur Squamous Epith Cells 0-5 SEEN Urine Bacteria 1+ Urine Mucus 0 SEEN Urine Opiates Screen NEGATIVE Urine Methadone Screen NEGATIVE Ur Barbiturates Screen NEGATIVE Ur Phencyclidine Scrn NEGATIVE Ur Amphetamines Screen NEGATIVE MDMA (Ecstasy) Screen POSITIVE H U Benzodiazepines Scrn NEGATIVE Urine Cocaine Screen NEGATIVE U Cannabinoids Screen POSITIVE H Ur Drug Screen Comment Ethyl Alcohol < 3.0 Radiography Diagnostic Testing: Clinical Impression(s) from Imaging Studies Chest X-Ray 07/24/23 13:25 IMPRESSION: Elevation of the right hemidiaphragm. The lungs are clear. Electronically Signed: Xu Davila MD at 13:56 EDT , Brain CT 07/24/23 15:09 IMPRESSION: Chronic involutional changes of the brain. Electronically Signed: Xu Davila MD at 15:32 EDT , EKG Initial EKG: Attestation: I personally reviewed and interpreted this EKG as follows: Comments: Sinus tachycardia ventricular rate of 125 bpm Discharge Plan Triage Chief Complaint: Palpitations ED Provider: Clark Vásquez Dx/Rx/DC Orders Clinical Impression: SOB (shortness of breath), Dizziness, Diabetes mellitus, type II, Sinus tachycardia Prescriptions: No Action cholecalciferol (vitamin D3) 2,000 unit capsule 2,000 unit PO QDAY cyclobenzaprine 10 mg tablet 10 mg PO HS trazodone 300 MG tablet 300 mg PO QHS Patient Comments: SLEEP DISORDER- INSOMNIA metoprolol succinate [Toprol XL] 50 MG tablet extended release 24 hr 25 mg PO QHS clonazepam 1 MG tablet 1.5 mg PO QHS Patient Comments: TAKE 2 TABLETS AT BEDTIME epinephrine 0.3 MG syringe 0.3 mg IM PRN PRN (Reason: anaphlaxis) vitamin B complex [B Complex-Vitamin B12] 1 EACH tablet 1 tab PO DAILY levothyroxine 75 MCG tablet 75 mcg PO DAILY ondansetron 4 mg tablet,disintegrating 4 mg PO Q8H PRN PRN (Reason: Nausea) Qty: 10 0RF Primary Care Provider: Mikayla Arita Referrals: Mikayla Arita, [facility] [Primary Care Provider] - As soon as possible Disposition Disposition: Home, Self Care
[2023-07-24 15:00] VITALS: O2SAT 95
--- NOTE | 2023-07-24 15:05 | ED.RN ---
this RN assisted pt with ambulation. pt unable to ambulate more than a few steps d/t being dizzy and off balance. pt assisted back to bed without injury. Dr. Vásquez aware at this time.
--- NOTE | 2023-07-24 15:09 | CT_ITS ---
STUDY: CT BRAIN WITHOUT CONTRAST REASON FOR EXAM: Female, 72 years old. Ataxia RADIATION DOSAGE (If Supplied By Facility): CTDIvol = ( 44.99 ) mGy, DLP = ( 779.24 ) mGycm TECHNIQUE: Transaxial CT imaging of the brain was performed without administration of intravenous contrast material. Individualized dose optimization techniques were used for this CT. COMPARISON: Comparison is made with prior study dated March 12, 2023. FINDINGS: Normal soft tissue structures. Normal calvarium. There is mild cerebral atrophy with widening of the extra-axial spaces and ventricular dilatation. Normal white matter tracts of the cerebral hemispheres. Normal basal ganglia and thalami. Normal brainstem. There is mild cerebellar atrophy. There is no intracranial hemorrhage. There are no findings of an acute ischemic infarction. Normal visualized paranasal sinuses. CT/Brain/Head without Contrast IMPRESSION: Chronic involutional changes of the brain. Electronically Signed: Xu Davila MD at 15:32 EDT ,
[2023-07-24 16:00] VITALS: BP 123/55; PULSE 103; RESP 21; O2SAT 94
[2023-07-24 16:07] LABS: Mucous, Urine 0 SEEN /hpf (<or=2+); Red Blood Cells-Urine 0 SEEN /hpf (0-5)
[2023-07-24 16:10] LABS: Color, Urine Yellow (Yellow); Glucose, Dipstick Normal (Normal); Ketone-Dipstick Negative (Negative); Leukocyte Esterase-Dipstick 25 /ul (Negative); Nitrite-Dipstick Positive (Negative); Occult Blood-Urine Negative /ul (Negative); Protein-Dipstick Negative (Negative); Urine Bilirubin Dipstick Negative (Negative); Urine Clarity Sl. Cloudy (Clear); Urine Urobilinogen Normal (Normal)
[2023-07-24 16:15] LABS: Alcohol, Blood (Medical)-Serum < 3.0 mg/dL
[2023-07-24 16:24] LABS: AST(SGOT) 22 U/L (15-37); Alanine Aminotransfer ALT/SGPT 28 U/L (13-56); Albumin, Serum 3.6 g/dL (3.2-5.0); Alkaline Phosphatase 87 U/L (45-117); Bilirubin, Direct 0.16 mg/dL (0.00-0.30); Protein, Total 6.6 g/dL (6.4-8.2)
[2023-07-24 16:25] LABS: Bacteria 1+ /hpf (None Seen); Squamous Epithelial Cells - UA 0-5 SEEN /hpf (5-10); White Blood Cells 0-5 SEEN /hpf (0-5)
[2023-07-24 16:27] LABS: Amphetamine Urine VISTA NEGATIVE (<1000 ng/mL); Barbiturate Urine VISTA NEGATIVE (< 200 ng/mL); Benzodiazepine Urine VISTA NEGATIVE (< 200 ng/mL); Cocaine Urine VISTA NEGATIVE (< 300 ng/mL); Ecstacy Urine VISTA POSITIVE (< 500 ng/mL); Methadone Urine VISTA NEGATIVE (< 300 ng/mL); PCP Urine VISTA NEGATIVE (< 25 ng/mL); THC Urine VISTA POSITIVE (< 50 ng/mL); Vista UDS pH Range 6
[2023-07-24 16:49] VITALS: BP 126/66; PULSE 98; RESP 18; TEMP 36.6; O2SAT 94
== END 2023-07-24 17:05 | disposition home or self-care (01) ==
PROVIDERS: Emergency Provider Emergency Medicine; PCP Nurse Practitioner Family; Visit Provider Emergency Medicine
DX: R06.02 Shortness of breath (principal); E11.9 Type 2 diabetes mellitus without complications; Z87.891 Personal history of nicotine dependence; R00.0 Tachycardia, unspecified; R42 Dizziness and giddiness; I10 Essential (primary) hypertension; Z79.899 Other long term (current) drug therapy; E03.9 Hypothyroidism, unspecified
CPT/HCPCS: 70450; 71045; 80048; 80076; 80307; 80320; 81001; 83735; 84443; 84484; 85025; 87077; 87086; 87088; 87186; 93005; 99284; J7030; A4216; G0480

== ENCOUNTER → 2023-08-29 | Outpatient (CLI) | payer OTHER, SELFPAY ==
--- NOTE | 2023-08-29 07:01 | ECHOD_ITS ---
Reason For Study: CHEST PAIN Procedure This was a 2D Doppler, Color Flow transthoracic echocardiogram. Exam performed in department. Left Ventricle Normal LV size. Left ventricular systolic function is normal. The estimated ejection fraction is 65 %. Stage 1 diastolic dysfunction. No regional wall motion abnormalities noted. Right Ventricle Normal RV size. Normal systolic function. Atria Normal left atrium. Normal right atrium. Mitral Valve Normal mitral valve. Tricuspid Valve Normal tricuspid valve. Aortic Valve Trisinus/trileaflet aortic valve. Pulmonic Valve Normal pulmonic valve. Great Vessels Normal aortic root. The pulmonary artery is normal size. Normal inferior vena cava. Pericardium/Pleural No pericardial effusion. MMode/2D Measurements & Calculations LVIDd: 4.4 cm IVSd: 0.90 cm LVOT diam: 1.9 cm LVIDs: 3.0 cm LVPWd: 0.90 cm LVOT area: 2.8 cm2 RVDd: 3.1 cm FS: 32.9 % Ao root diam: 2.8 cm LAV(MOD-bp): 26.1 ml LVAd ap4: 16.4 cm2 LAV(MOD-bp) Indexed: 14.6 ml/m2 LVLd ap4: 6.2 cm LAV(MOD-sp2): 23.2 ml EDV(MOD-sp4): 35.6 ml LAV(MOD-sp4): 26.6 ml EDV(sp4-el): 36.7 ml LVAs ap4: 9.2 cm2 LVLs ap4: 5.6 cm ESV(MOD-sp4): 13.4 ml ESV(sp4-el): 12.7 ml EF(MOD-sp4): 62.2 % EF(sp4-el): 65.3 % LVAd ap2: 15.3 cm2 SV(MOD-sp4): 22.1 ml SV(MOD-sp2): 20.4 ml LVLd ap2: 6.2 cm EDV(MOD-sp2): 31.0 ml EDV(sp2-el): 31.8 ml LVAs ap2: 8.0 cm2 LVLs ap2: 5.0 cm ESV(MOD-sp2): 10.6 ml ESV(sp2-el): 10.8 ml EF(MOD-sp2): 65.9 % SV(sp4-el): 24.0 ml LA dimension(2D): 3.3 cm LA A4 area: 11.7 cm2 RA A4 area: 8.9 cm2 TAPSE: 1.7 cm Time Measurements MV dec time: 0.20 sec Doppler Measurements & Calculations MV E max gavin: 63.7 cm/sec Lat Peak E' Gavin: 10.7 cm/sec Med Peak E' Gavin: 6.7 cm/sec MV A max gavin: 81.9 cm/sec E/E' lat: 6.0 E/E' med: 9.5 MV E/A: 0.78 Ao V2 max: 107.2 cm/sec LV V1 max: 90.9 cm/sec MV dec slope: 312.3 cm/sec2 Ao max P.6 mmHg LV V1 max P.3 mmHg Ao V2 mean: 77.8 cm/sec LV V1 mean P.0 mmHg Ao mean P.7 mmHg LV V1 mean: 66.1 cm/sec Ao V2 VTI: 26.9 cm LV V1 VTI: 23.2 cm AV (velocity ratio): 0.86 MALATHI(I,D): 2.4 cm2 MALATHI(V,D): 2.3 cm2 SV(LVOT): 64.1 ml PA V2 max: 84.6 cm/sec PA max PG (full): 0.75 mmHg ECHO/Echo Complete Interpretation Summary Normal LV size. Left ventricular systolic function is normal. The estimated ejection fraction is 65 %. Stage 1 diastolic dysfunction. Ordering Physician: Mikayla Arita Referring Physician: Mikayla Arita Performed By: Ariadne Todd RDCS
--- NOTE | 2023-08-29 19:10 | STRESSREP ---
Stress Test Report Pharmacologic myocardial perfusion stress test. 72-year-old lady with a history of chest pain Resting EKG demonstrates sinus rhythm with a rate of 74 bpm. Resting blood pressure is 136/82 mmHg. 0.4 mg of regadenoson was infused per usual protocol followed by rapid intravenous saline flush injection. Continuous EKG monitoring was performed. The maximum heart rate was 90 bpm which was 60% of max impacted heart rate the maximum workload was 1 metabolic equivalent. At rest there were no ST or T wave changes noted to suggest ischemia and at peak infusion nonspecific ST changes were noted which did not meet the criteria for ischemia. No clinical angina is noted. The final blood pressure was 130/72 mmHg. Myocardial perfusion protocol. 15 mCi of technetium 99m sestamibi was injected at rest. 0.4 mg of regadenoson was infused per usual protocol. At peak infusion 44 mCi of technetium 99m sestamibi was injected stress images were obtained stress and rest images were reconstructed and compared in the short axis vertical long and horizontal long axis. Gated images were also obtained. Perfusion SPECT analysis: Review of the stress images demonstrate normal uptake of tracer noted in all areas of the myocardium. The resting images similar demonstrated normal uptake of tracer noted in all areas of the myocardium. No areas of reversibility are noted to suggest ischemia and no previous infarct is noted. Gated SPECT analysis: The gated ejection fraction is 76%. Conclusion: Normal pharmacologic myocardial perfusion stress test. Preserved ejection fraction.
== END | disposition home or self-care (01) ==
LOC: CVS 06:59
PROVIDERS: PCP Nurse Practitioner Family; Referring Provider Nurse Practitioner Family; Visit Provider Nurse Practitioner Family
DX: R07.89 Other chest pain (principal)
CPT/HCPCS: 78452; 93017; 93306; A9500; A4216; J2785

== ENCOUNTER → 2023-11-06 | Outpatient (CLI) | payer OTHER, SELFPAY | END | disposition home or self-care (01) | PROVIDERS: PCP Nurse Practitioner Family; Referring Provider Nurse Practitioner Family; Visit Provider Nurse Practitioner Family | DX: R05.3 Chronic cough (principal) | CPT/HCPCS: 94060; 94726; 94729 ==

== ENCOUNTER 2024-12-29 17:38 | Emergency (ER) | payer OTHER, MEDICARE, SELFPAY ==
[2024-12-29 17:39] VITALS: BP 140/115; PULSE 87; RESP 16; TEMP 36.6; O2SAT 97; BMI 34.3
--- NOTE | 2024-12-29 17:40 | EKG12_ITS ---
Test Reason : UNRESPONSIVE Blood Pressure : */* mmHG Vent. Rate : 91 BPM Atrial Rate : 91 BPM P-R Int : 152 ms QRS Dur : 92 ms QT Int : 390 ms P-R-T Axes : 62 59 13 degrees QTcB Int : 479 ms Normal sinus rhythm ST & T wave abnormality, consider inferior ischemia Abnormal ECG Confirmed by Oswaldo Augustin ([id number]), editor in chief newspaper JOSEFINA POTTER ([id number]) on 12/30/2024 10:25:05 AM Referred By: Confirmed By: Oswaldo Augustin
--- NOTE | 2024-12-29 17:43 | EDS_ITS ---
HPI History of Present Illness Chief Complaint: Unresponsive Detail of Chief Complaint: Unresponsiveness per EMS with reported facial droop and weakness right side Informant: EMS Onset/Context/Timing Onset: Today Context: Sudden Onset Timing: Continuous Quality: Patient is unresponsive. Detailed HPI narrative Location: Presents from home Current Severity: Unable to determine Maximum Severity: Unable to determine Worsened by: Unknown Relieved by: Apparently nothing Associated Symptoms Associated Symptoms: Screams out to noxious stimuli Narrative Narrative: Patient is a 74-year-old woman. She has numerous allergies. called because of reported facial droop and weakness right side. Squad states when they arrived she was unresponsive. Her blood sugar was greater than 100. She does have a history of type 2 diabetes, hypothyroidism, mitral valve prolapse, hypertension and fatigue. There is also a history of fibromyalgia and GERD after reviewing notes. Patient is lying on the examination cot. She has her eyes closed. She is not moving. To noxious stimuli she screams out in withdrawals. She moves all of her extremities. The extremity that the noxious stimuli was applied to withdrawals the most. No other history is available. Prior similar symptoms: No Recent Illness/Hospitalization: No PFSH PFS Medical History Burning with urination Palpitations SOB (shortness of breath) Type 2 diabetes mellitus Mitral valve prolapse Hypertension GERD (gastroesophageal reflux disease) Hiatal hernia Hypothyroidism Fibromyalgia Osteoporosis Osteopenia Fatigue Chest pain Chronic pain Psoriatic arthritis Head ache Home Medications ?Medication ?Instructions ?Recorded ?Last Taken ?Type cholecalciferol (vitamin D3) 50 2,000 unit PO QDAY 11/07 Unknown History mcg (2,000 unit) capsule cyclobenzaprine 10 mg tablet 10 mg PO HS 05/30/1712/08 History trazodone 300 mg tablet 200 mg PO QHS 05/30/1702/28 History epinephrine 0.3 mg/0.3 mL 0.3 mg IM PRN PRN anaphlaxis 03/01/18 Unknown History injection, auto-injector vitamin B complex (B 1 tab PO DAILY supplement 03/01/18 History Complex-Vitamin B12 tablet) ondansetron 4 mg disintegrating 4 mg PO Q8H PRN PRN Na usea #10 tabs 10/20/22 Unknown Rx tablet albuterol sulfate 2.5 mg/3 mL 2.5 mg inhalation Q20M P RN 12/29/24 Unknown History (0.083 %) solution for nebulization shortness of breat h albuterol sulfate 90 mcg/actuation 2 puff inhalation 4 X/DAY 12/29/24 Unknown History aerosol inhaler clonazepam 0.5 mg tablet 1.5 mg PO QHS 12/29/24 Unkno wn History cyclosporine 0.05 % eye drops in a 1 drp ophthalmic (e ye) BID 12/29/24 Unknown History dropperette (Restasis) fexofenadine 180 mg tablet 180 mg PO BID 12/29/24 Unkn own History fexofenadine 60 mg tablet (Anushka 60 mg PO Q12H 12/29 Unknown History Allergy) ketoconazole 2 % topical cream applic topical BID 12/15 Unknown History levothyroxine 88 mcg tablet 88 mcg PO DAILY 12/29/24 U nknown History (Synthroid) metoprolol succinate 25 mg 25 mg PO DAILY 12/29/24 Unk nown History tablet,extended release 24 hr minoxidil 2.5 mg tablet See Rx Instructions PO DAILY 12/29/24 Unknown History sucralfate 1 gram tablet 1 g PO QHS 12/29/24 Unknown History valsartan 80 mg tablet 80 mg PO DAILY 12/29/24 Unkn own History Allergy/AdvReac Type Severity Reaction Status Date / Time cefaclor (From Ceclor) Allergy Intermediate Shortness Verified 07/24/23 12:42 of breath amoxicillin trihydrate (From Allergy Shortness Verified 07/24/23 12:42 Augmentin) of breath aspirin Allergy Anaphylaxis Verified 07/24/23 12:42 atropine sulfate (From Allergy Itching Verified 07/24/23 12:42 Lomotil) cefixime (From Suprax) Allergy Itching Verified 07/24/23 12:42 ceftriaxone sodium (From Allergy Itching Verified 07/24/23 12:42 Rocephin) cephalexin monohydrate (From Allergy Itching Verified 07/24/23 12:42 Keflex) ciprofloxacin (From Cipro) Allergy Shortness Verified 07/24/23 12:42 of breath ciprofloxacin HCl (From Allergy Shortness Verified 07/24/23 12:42 Cipro) of breath clindamycin Allergy Itching Verified 07/24/23 12:42 Corticosteroids Allergy PT UNABLE Verified 07/24/23 12:42 (Glucocorticoids) TO RESPOND-NEEDS F/U diphenoxylate HCl (From Allergy Itching Verified 07/24/23 12:42 Lomotil) gentamicin (Gentamicin) Allergy Itching Verified 07/24/23 12:42 hydromorphone HCl (From Allergy Itching Verified 07/24/23 12:42 Exalgo ER) Iodinated Contrast Media Allergy Rash Verified 07/24/23 12:42 metoclopramide HCl (From Allergy Anaphylaxis Verified 07/24/23 12:42 Reglan) Penicillins (PCN) Allergy Itching Verified 07/24/23 12:42 phenazopyridine HCl (From Allergy Itching Verified 07/24/23 12:42 Pyridium) potassium clavulanate (From Allergy Shortness Verified 07/24/23 12:42 Augmentin) of breath propoxyphene HCl (From Allergy Itching Verified 07/24/23 12:42 Darvon) red dye Allergy Itching Verified 07/24/23 12:42 Sulfa (Sulfonamide Allergy Itching Verified 07/24/23 12:42 Antibiotics) adhesive tape AdvReac Severe skin peels Verified 07/24/23 12:42 clarithromycin (From Biaxin) AdvReac Severe Vomiting Verified 07/24/23 12:42 ketorolac tromethamine (From AdvReac Severe Vomiting Verified 07/24/23 12:42 Toradol) verapamil (Verapamil) AdvReac Severe Other Verified 07/24/23 12:42 levofloxacin (From Levaquin) AdvReac Unknown Unknown Verified 07/24/23 12:42 phenazopyridine (From AdvReac Unknown Unknown Verified 07/24/23 12:42 Pyridium) carbamazepine (From Tegretol) AdvReac Unknown Verified 07/24/23 12:42 duloxetine HCl (From AdvReac Unknown Verified 07/24/23 12:42 Cymbalta) gabapentin (From Neurontin) AdvReac Other Verified 07/24/23 12:42 guaifenesin (From Entex T) AdvReac Vomiting Verified 07/24/23 12:42 levalbuterol (From Xopenex) AdvReac DYSTONIA Verified 07/24/23 12:42 midazolam HCl (From Versed) AdvReac Other Verified 07/24/23 12:42 phenobarbital AdvReac Other Verified 07/24/23 12:42 pseudoephedrine HCl (From AdvReac Vomiting Verified 07/24/23 12:42 Entex T) quetiapine fumarate (From AdvReac Other Verified 07/24/23 12:42 Seroquel) Family History Father CAD (coronary artery disease) Mother CVA (cerebral vascular accident) Grandfather Heart disease Grandmother Heart disease Uncle Sudden cardiac , Onset Age: 30 Surgical History History of cholecystectomy Hx of appendectomy History of total hysterectomy Social History household members: spouse Smoking Status: Former smoker alcohol intake: never substance use type: does not use ROS ROS ED Review of Systems ROS Unobtainable: due to mental condition and due to mental status EXAM Physical Exam Const Vital Signs: 12/29/24 17:39 12/29/24 17:47 12/29/24 17:52 Temperature 97.9 F Temperature Source Oral Pulse Rate 87 85 Respiratory Rate 16 16 Respiratory Effort Normal Non-Labored Respiratory Pattern Normal Blood Pressure 140/115 H Blood Pressure Mean 123 Pulse Ox 97 98 Oxygen Delivery Method Room Air Room Air 12/29/24 18:38 12/29/24 19:05 12/29/24 20:05 Temperature Temperature Source Pulse Rate 76 74 71 Respiratory Rate 18 19 H 11 L Respiratory Effort Respiratory Pattern Blood Pressure 157/71 H 169/68 H 167/100 H Blood Pressure Mean 99 101 122 Pulse Ox 97 98 98 Oxygen Delivery Method Room Air Room Air Room Air Positive well nourished and well developed General Appearance ED: well developed and NAD; Negative for cyanotic, diaphoretic or pallor HEENT Reports moist mucous membranes HEENT Narrative: Head is atraumatic normocephalic. Ears normal. Nares patent. Mucosas moist. Eyes PERRL and EOMs intact bilaterally Eyes Narrative: There is no nystagmus. She blinks to threat. General Eye ED: Negative for pale conjunctiva or scleral icterus Neck no lymphadenopathy, supple and no JVD Resp normal respiratory effort and clear to auscultation bilaterally Cardio regular rate, regular rhythm, S1 normal heart sound, S2 normal heart sound and no murmurs GI normal to inspection, nondistended, normoactive bowel sounds, non-tender, non- distended and no masses; Negative for hepatosplenomegaly Extremity normal to inspection Neuro Neuro Narrative: Patient screams out to noxious stimuli. She moves all extremities and the extremity that is stimulated moves the most. There is no clonus. There is no Babinski sign. Arm avoidance test reveals patient is aware of her environment. When her hand was held above her head it would come down and go above her head. This was both the right and left upper extremity. Skin no rashes or lesions noted, no wounds and skin turgor normal General Skin Exam: Negative for jaundice or pallor MDM MDM MDM Narrative Medical decision making narrative: Stroke alert was canceled. In my opinion this is a conversion reaction. Will obtain appropriate blood work imaging to rule out metabolic, infectious causes or toxins. Patient was seen July 2023 for diabetic reasons. She was seen February 2023 for tremor. She was seen March 2021 for urinary tract infection. That visit was at an urgent care. History & Record Review Additional record(s) reviewed:: Prior outpatient record and Prior ED visit Lab Data Attestation: I reviewed the patient's lab results. Lab results narrative: White count is slightly elevated. This is nonspecific. There is increased lymphocytosis. Electrolyte panel is unremarkable. Glucose is slightly elevated. Lactate is normal. Urinalysis is unremarkable. Tox is positive for benzos and cannabis. Alcohol was negative. Labs: Laboratory Results - last 24 hr 12/29/24 12/29/24 12/29/24 17:40 18:00 18:35 WBC 11.4 H RBC 4.87 Hgb 15.4 H Hct 43.9 MCV 90.1 MCH 31.6 MCHC 35.1 RDW Std Deviation 41.5 RDW Coeff of Doreen 12.7 Plt Count 217 MPV 9.6 Immature Gran % (Auto) 0.400 Neut % (Auto) 46.6 L Lymph % (Auto) 42.2 H [place] % (Auto) 7.1 Eos % (Auto) 3.3 Baso % (Auto) 0.4 Absolute Neuts (auto) 5.3 Absolute Lymphs (auto) 4.81 H Nucleated RBC % 0 Sodium 139 Potassium 3.9 Chloride 104 Carbon Dioxide 24.1 Anion Gap 12 BUN 16 Creatinine 0.83 Estim Creat Clear Calc 62.00 Est GFR (MDRD) Non-Af 74 BUN/Creatinine Ratio 18.9 Glucose 102 H Lactic Acid 1.3 Calcium 9.4 Total Bilirubin 0.51 AST 19 ALT 15 Alkaline Phosphatase 98 Total Protein 7.2 Albumin 4.1 Globulin 3.0 Albumin/Globulin Ratio 1.4 Urine Color Straw Urine Clarity Clear Urine pH 6.5 Ur Specific [place] 1.015 Urine Protein 15 H Urine Glucose (UA) Normal Urine Ketones Negative Urine Occult Blood Negative Urine Nitrite Negative Urine Bilirubin Negative Urine Urobilinogen Normal Ur Leukocyte Esterase Negative Urine Opiates Screen NEGATIVE U Buprenorphine Qual NEGATIVE Ur Oxycodone Screen NEGATIVE Urine Methadone Screen NEGATIVE Urine Fentanyl Screen NEGATIVE Ur Barbiturates Screen NEGATIVE Ur Phencyclidine Scrn NEGATIVE Ur Amphetamines Screen NEGATIVE U Benzodiazepines Scrn PRESUMPTIVE POSITIVE Urine Cocaine Screen NEGATIVE U Cannabinoids Screen PRESUMPTIVE POSITIVE Ethyl Alcohol < 10.1 Radiography Diagnostic Testing: Clinical Impression(s) from Imaging Studies Brain CT 12/29/24 18:10 IMPRESSION: 1. No acute intracranial abnormality. 2. Mild generalized parenchymal volume loss and chronic microangiopathic changes. 3. Fluid in the left maxillary sinus may reflect acute sinusitis. Reading Location: [facility] Treatment and Re-Evaluation :: Patient and were made aware of results. Feel this is a conversion reaction. She asked if she should contact someone and what that meant. She then asked if this could be psychological. I informed her 50% of patients with conversion reaction have a psychological basis. She does see a therapist. I informed her that she should contact her therapist in the morning. Discharge Plan Triage Chief Complaint: Unresponsive ED Provider: Sascha Addison Dx/Rx/DC Orders Clinical Impression: Conversion reaction, Hypertension, Mitral valve prolapse, Hypothyroidism, Diabetes mellitus, type II, Fibromyalgia, Unresponsive episode, Cannabis use disorder Instructions: ED Functional Neurological ... Prescriptions: No Action cholecalciferol (vitamin D3) 2,000 unit capsule 2,000 unit PO QDAY cyclobenzaprine 10 mg tablet 10 mg PO HS trazodone 300 MG tablet 200 mg PO QHS Patient Comments: SLEEP DISORDER- INSOMNIA epinephrine 0.3 MG syringe 0.3 mg IM PRN PRN (Reason: anaphlaxis) vitamin B complex [B Complex-Vitamin B12] 1 EACH tablet 1 tab PO DAILY ondansetron 4 mg tablet,disintegrating 4 mg PO Q8H PRN PRN (Reason: Nausea) Qty: 10 0RF sucralfate 1 gram tablet 1 g PO QHS clonazepam 0.5 mg tablet 1.5 mg PO QHS valsartan 80 mg tablet 80 mg PO DAILY fexofenadine 180 mg tablet 180 mg PO BID levothyroxine [Synthroid] 88 mcg tablet 88 mcg PO DAILY metoprolol succinate 25 mg tablet extended release 24 hr 25 mg PO DAILY albuterol sulfate 90 mcg/actuation HFA aerosol inhaler 2 puff INHALATION 4X/DAY ketoconazole 2 % cream topical BID cyclosporine [Restasis] 0.05 % dropperette 1 drp ophthalmic (eye) BID minoxidil 2.5 mg tablet See Rx Instructions PO DAILY Rx Instructions: orally daily; PT UNSURE OF STRENGTH STATES THAT SHE TAKES A LIQUID FORM BY MOUTH 1 TEASPOON DAILY fexofenadine [Anushka Allergy] 60 mg tablet 60 mg PO Q12H albuterol sulfate 2.5 mg /3 mL (0.083 %) solution for nebulization 2.5 mg inhalation Q20M PRN (Reason: shortness of breath) Rx Instructions: for 3 doses Primary Care Provider: Mikayla Arita Referrals: Mikayla Arita NP-C [Primary Care Provider] - 1-2 Weeks Activity Restrictions/Additional Instructions: Recommend contacting your therapist/psychiatrist to move up your appointment. Print Language: Kinyarwanda Disposition Disposition: Home, Self Care
[2024-12-29 17:47] VITALS: PULSE 85; RESP 16; O2SAT 98
[2024-12-29 17:58] LABS: Hematocrit 43.9 % (37-47); Hemoglobin 15.4 g/dL (12.0-15.0); Immature Granulocytes Count 0.040 X10^3/uL (0.0-0.0); Mean Corp Hgb Conc 35.1 g/dL (32-36); Mean Corpuscular Volume 90.1 fL (81-99); Mean Platelet Vol. 9.6 fl (6.2-12.0); NRBC Flagged by Analyzer 0 % (0-5); Platelet Count 217 K/mm3 (150-450); RBC Distribution Width CV 12.7 % (11.6-14.6); RBC Distribution Width SD 41.5 fl (35.1-43.9); Red Blood Count 4.87 M/mm3 (4.2-5.4); White Blood Count 11.4 K/mm3 (4.4-11.0)
--- NOTE | 2024-12-29 18:10 | CT_ITS ---
PROCEDURE: CT BRAIN/HEAD WITHOUT CONTRAST 12/29/2024 REASON FOR EXAM: ALTERED MENTAL STATUS TECHNIQUE: Procedure Code: CTBR Modality: CT Procedure: BRAIN/HEAD WITHOUT CONTRAST Coronal and Sagittal reconstruction series were provided. One or more dose reduction techniques were used (e.g., Automated exposure control, adjustment of the mA and/or kV according to patient size, use of iterative reconstruction technique. RADIATION DOSE SUMMARY: CTDlvol: 44.99 mGy DLP: 796.11 mGycm COMPARISON: 07/24/2023 FINDINGS: No acute intracranial hemorrhage, extra-axial collection, mass effect or evidence of acute infarct. Mild generalized brain parenchymal volume loss, and chronic microangiopathic changes in the supratentorial white matter. Orbital contents are unremarkable. Intact skull base and calvarium. No mastoid effusions. Dependent fluid within the left maxillary sinus, which can be seen with acute sinusitis. Remainder of paranasal sinuses are well-aerated. CT/Brain/Head without Contrast IMPRESSION: 1. No acute intracranial abnormality. 2. Mild generalized parenchymal volume loss and chronic microangiopathic change s. 3. Fluid in the left maxillary sinus may reflect acute sinusitis. Reading Location: [facility]
[2024-12-29 18:14] LABS: Alcohol, Blood (Medical)-Serum < 10.1 mg/dL (<=10.0)
[2024-12-29 18:15] LABS: AST(SGOT) 19 U/L (<=31); Alanine Aminotransfer ALT/SGPT 15 U/L (<=34); Albumin, Serum 4.1 g/dL (3.4-4.8); Alkaline Phosphatase 98 U/L (35-104); Anion Gap 12 (5-15); BUN 16 mg/dL (4-19); BUN/Creat Ratio 18.9 RATIO (10-20); Calcium,Total 9.4 mg/dL (7.6-11.0); Carbon Dioxide 24.1 mmol/L (21.0-32.0); Chloride 104 mmol/L (98-108); Estimated Creatinine Clearance 62.00 ml/min (50-250); Globulin 3.0 g/dL (2.2-4.2); Glucose 102 mg/dL (70-99); Potassium 3.9 mmol/L (3.3-5.1)
[2024-12-29 18:38] VITALS: BP 157/71; PULSE 76; RESP 18; O2SAT 97
[2024-12-29 18:47] LABS: Mucous, Urine 0 SEEN /hpf (<or=2+); Squamous Epithelial Cells - UA 0 SEEN /hpf (5-10)
--- NOTE | 2024-12-29 18:51 | ED.RN ---
Pt asks this RN if the mean doctor who rubbed by chest is still here. This RN explained to pt that she was unresponsive and her sternum was rubbed to see if there was any response. This RN further explained that this was performed to see if the pt remained unresponsive and would need intubated to protect their airway and further stabilize them. The pt then stated Oh he is my favorite doctor now! Pt is sitting up in bed conversing with son and spouse.
[2024-12-29 19:05] VITALS: BP 169/68; PULSE 74; RESP 19; O2SAT 98
[2024-12-29 19:32] LABS: Barbiturate Urine NEGATIVE (< 200 ng/mL); Benzodiazepine Urine PRESUMPTIVE POSITIVE (< 200 ng/mL); PCP Urine NEGATIVE (< 25 ng/mL); THC Urine PRESUMPTIVE POSITIVE (< 50 ng/mL)
[2024-12-29 20:05] VITALS: BP 167/100; PULSE 71; RESP 11; O2SAT 98
[2024-12-29 20:13] LABS: Color, Urine Straw (Yellow); Glucose, Dipstick Normal (Normal); Ketone-Dipstick Negative (Negative); Leukocyte Esterase-Dipstick Negative /ul (Negative); Nitrite-Dipstick Negative (Negative); Occult Blood-Urine Negative /ul (Negative); Protein-Dipstick 15 mg/dl (Negative); Specific Gravity, Urine 1.015 (1.002-1.030); Urine Bilirubin Dipstick Negative (Negative)
[2024-12-29 20:44] LABS: Red Blood Cells-Urine 0-5 SEEN /hpf (0-5)
[2024-12-29 20:53] VITALS: BP 158/73; PULSE 76; RESP 20; TEMP 36.5; O2SAT 97
== END 2024-12-29 21:26 | disposition home or self-care (01) ==
PROVIDERS: Emergency Provider Emergency Medicine; PCP Nurse Practitioner Family; Visit Provider Emergency Medicine
DX: R40.4 Transient alteration of awareness (principal); E11.9 Type 2 diabetes mellitus without complications; M79.7 Fibromyalgia; I10 Essential (primary) hypertension; I34.1 Nonrheumatic mitral (valve) prolapse; Z87.891 Personal history of nicotine dependence; F12.90 Cannabis use, unspecified, uncomplicated; E03.9 Hypothyroidism, unspecified; Z90.49 Acquired absence of other specified parts of digestive tract; Z90.710 Acquired absence of both cervix and uterus; F44.9 Dissociative and conversion disorder, unspecified
CPT/HCPCS: 70450; 80053; 80307; 81001; 82077; 83605; 85025; 93005; 96374; 99285; P9612; A4216; J2405

== ENCOUNTER → 2025-01-13 | Outpatient (CLI) | payer OTHER, SELFPAY ==
--- NOTE | 2025-01-13 13:55 | BD_ITS ---
PROCEDURE: DEXA BONE DENSITY STUDY 01/13/2025 REASON FOR EXAM: F, age 74 y/o . TECHNIQUE: Procedure Code: BDDBD Modality: DX Procedure: DEXA BONE DENSITY STUDY COMPARISON: 09/14/2020. FINDINGS: BMD and T-SCORES Lumbar spine: 0.887 g/cm2, T-score -1.5 Levels: L1 through L4 Change from prior: -8.8%. Left femoral neck: 0.621 g/cm2, T-score -2.1 Left total hip: 0.771 g/cm2, T-score -1.4 Change from prior: +2.7%. Right femoral neck: 0.664 g/cm2, T-score -1.7 Right total hip: 0.842 g/cm2, T-score -0.8 Change from prior: +2.6%. The World Health Organization has defined the following categories based on bone density: Normal bone density: T-score equal to or greater than -1.0 Osteopenia: T-score between -1.0 and -2.5 Osteoporosis: T-score equal to or less than -2.5 FRAX (or Comparable) Fracture Risk Assessment: 10 Year Probability of Fracture: Major Osteoporotic Fracture: 25% Hip Fracture: 4.7% (Note: FRAX is not to be reported in setting of normal range bone density, osteoporosis on DEXA, known history of osteoporosis, prior osteoporotic hip or vertebral fracture, or for any patient undergoing pharmacological treatment for bone loss.) The National Osteoporosis Foundation (NOF) recommends pharmacological treatment for patients with a FRAX 10-year risk of 3% or higher for a hip fracture, or 20% or higher for a major osteoporotic fracture, to prevent osteoporosis and reduce fracture risk. The patient does meet the pharmacological treatment recommendations for prevention of osteoporosis. BD/Dexa Bone Density Study IMPRESSION: There is osteopenia of the lumbar spine, the left hip, and the right femoral ne ck. Recommend follow-up as clinically warranted. Reading Location: [id number]
--- NOTE | 2025-01-13 14:30 | BI_ITS ---
EXAM: SCRN MAMM (CAD)W/TINA BILAT DATE: 01/13/2025 CLINICAL HISTORY: F, Age 74 y/o , SCREENING Aunt with breast cancer. Prior left needle biopsy. TECHNIQUE: Procedure Code: [id number] Modality: MG Procedure: SCRN MAMM (CAD)W/TINA BILAT COMPARISON: Prior exam(s) dated prior study dated January 16, 2023.. FINDINGS: TISSUE DENSITY: The breasts are heterogeneously dense, which may obscure small masses. Bilateral Breast Mammographic Findings: No significant masses, calcifications or other abnormalities are identified. No suspicious masses, areas of developing architectural distortion, or suspicious calcifications. There has been no significant interval change. BI/SCRN MAMM (CAD)W/TINA BILAT IMPRESSION: Stable bilateral screening mammogram. OVERALL FINAL ASSESSMENT BI-RADS 1: NEGATIVE. RECOMMENDATION: Routine annual follow-up in 1 Year Additional Recommendation none A letter with findings and recommendations will be mailed to the patient. Reading Location: [place] [id number]
== END | disposition home or self-care (01) ==
PROVIDERS: PCP Nurse Practitioner Family; Referring Provider Nurse Practitioner Family; Visit Provider Nurse Practitioner Family
DX: Z12.31 Encounter for screening mammogram for malignant neoplasm of breast (principal); Z80.3 Family history of malignant neoplasm of breast
CPT/HCPCS: 77063; 77067; 77080